=== PATIENT | female | born 1960 | race Caucasian/White ===

== ENCOUNTER 2022-11-08 17:53 | Emergency (ER) | payer OTHER, SELFPAY ==
--- NOTE | ~2022-11-08 | XR_ITS ---
EXAMINATION: XR knee RT min 4V DATE: 11/08/2022 21:10 INDICATION: Right knee swelling and pain TECHNIQUE: Four views of the right knee were obtained. COMPARISON: 12/15/2007 FINDINGS: Alignment is normal. No fracture or osteochondral lesion. There is mild tricompartmental os teoarthritis characterized by marginal osteophytes. There is a moderate-sized knee joint effusion. So ft tissues are unremarkable. IMPRESSION: 1. Moderate size knee joint effusion and tricompartmental osteoarthritis without acute osseous abnorm ality. Reviewed, dictated and finalized at location F. IMPRESSION: 1. Moderate size knee joint effusion and tricompartmental osteoarthritis withou t acute osseous abnormality.
[2022-11-08 18:01] VITALS: BP 119/61; PULSE 72; RESP 18; TEMP 36.8; O2SAT 100
[2022-11-08 20:43] VITALS: BP 134/74; PULSE 76; RESP 16; O2SAT 99
--- NOTE | 2022-11-08 22:40 | ED.EXTPRO ---
HPI - Extremity Problem General Chief complaint: Extremity Problem,Nontraumatic Stated complaint: right leg pain Time Seen by Provider: 11/08/22 21:06 History of Present Illness HPI Narrative: 62-year-old female with a history of lung cancer and asthma reports to the emergency department for evaluation of right knee pain and swelling for 1 day. Pt reports taking Aleve at 12:00 today with some relief. She denies injury, history of knee effusions, fever, body aches, chills, CP, SOB, leg swelling, calf pain, history of VTE. Related Data Home Medications Medication Instructions Recorded Confirmed albuterol sulfate 90 mcg/actuation 1 puff inhalation Q4H PRN 07/26/22 07/26/22 aerosol inhaler fluticasone 500 mcg-salmeterol 50 1 inh inhalation Q12H 07/26/22 07/26/22 mcg/dose blistr powdr for inhalation (Advair Diskus) loratadine 10 mg tablet 10 mg PO DAILY 07/26/22 07/26/22 montelukast 10 mg tablet 10 mg PO DAILY 07/26/22 07/26/22 Allergies Allergy/AdvReac Type Severity Reaction Status Date / Time cyclobenzaprine Allergy Severe STOPS Verified 11/08/22 20:46 BREATHING amitriptyline Allergy Unknown Unknown Verified 11/08/22 20:46 amoxicillin Allergy Unknown Unknown Verified 11/08/22 20:46 carbamazepine Allergy Unknown RASH Verified 11/08/22 20:46 codeine Allergy Unknown Unknown Verified 11/08/22 20:46 divalproex sodium Allergy Unknown RASH Verified 11/08/22 20:46 doxycycline Allergy Unknown Unknown Verified 11/08/22 20:46 hydrocodone Allergy Unknown Unknown Verified 11/08/22 20:46 hydromorphone Allergy Unknown Unknown Verified 11/08/22 20:46 lamotrigine Allergy Unknown RASH Verified 11/08/22 20:46 oxycodone Allergy Unknown Unknown Verified 11/08/22 20:46 peanut Allergy Unknown Unknown Verified 11/08/22 20:46 Penicillins Allergy Unknown Unknown Verified 11/08/22 20:46 topiramate Allergy Unknown TONGUE Verified 11/08/22 20:46 SWELLING adhesive tape AdvReac Unknown RASH Verified 11/08/22 20:46 gabapentin AdvReac Unknown Unknown Verified 11/08/22 20:46 COCONUT Allergy Unknown Unknown Uncoded 11/08/22 20:46 PROCAINE HCL Allergy Unknown Unknown Uncoded 11/08/22 20:46 SHELLFISH Allergy Unknown VERY Uncoded 11/08/22 20:46 VAGUE, CAN EAT BUT IF TOO MUCH GETS HIVES Review of Systems Review of Systems: CONSTITUTIONAL: Denies fever, chills EYES: Denies visual changes, redness, or discharge. ENT: Denies rhinorrhea, congestion, sore throat, or otalgia. CARDIOVASCULAR: Denies chest pain, palpitations, or edema. RESPIRATORY: Denies cough or dyspnea. GASTROINTESTINAL: Denies abdominal pain, nausea, vomiting, or diarrhea. GENITOURINARY: Denies dysuria or hematuria. SKIN: Denies rash or itching. MUSCULOSKELETAL: See HPI NEUROLOGIC: Denies headache, numbness, dizziness, or weakness. PSYCHIATRIC: Denies anxiety or depression. [facility] Past Medical History Medical History History of lung cancer Moderate persistent asthma Surgical History Surgical History History of History of lobectomy of lung (~2009) History of tonsillectomy Family History Family History Father Asthma Family history of allergic disorder Malignant neoplasm of prostate Family history of diabetes mellitus in first degree relative Patient's father is in good health Other Diabetes mellitus Family history of cardiovascular disease Hypertension Social History Social History Smoking status: Never smoker Alcohol intake: current Substance use: never Exam Narrative: GENERAL: Well-appearing, well-nourished, and in no acute distress. Patient resting comfortably in the bed. She is pleasant conversational. HEAD: Normocephalic, atraumatic. EYES: PERRLA and EOMI. NECK: Supple. No adenopathy
[2022-11-08] MEDS: NAPROXEN 500 MG TABLET PO (23:04)
[2022-11-08 23:07] VITALS: BP 130/68; PULSE 80; RESP 16; O2SAT 100
== END 2022-11-08 23:10 | disposition home or self-care (01) ==
PROVIDERS: Emergency Provider Physician Assistant; PCP Family Medicine Adolescent Medicine
DX: M25.461 Effusion, right knee (principal); J45.40 Moderate persistent asthma, uncomplicated; Z85.118 Personal history of other malignant neoplasm of bronchus and lung; Z90.2 Acquired absence of lung [part of]; M17.11 Unilateral primary osteoarthritis, right knee
CPT/HCPCS: 73564; 99283; A9270

== ENCOUNTER 2022-11-26 10:37 | Outpatient (CLI) | payer OTHER, SELFPAY ==
--- NOTE | ~2022-11-26 | MR_ITS ---
MRI of the right knee Clinical history: Lateral meniscus tear Technique: Coronal proton density and proton density-weighted images, sagittal proton-density and T2 fat-sat images, and axial proton-density fat-saturated images were acquired. Findings: Anterior and posterior cruciate ligaments are intact. Medial collateral ligament and the la teral collateral ligament complex are intact. Popliteus tendon is intact. There is prominent horizontal tear of the posterior horn and body of the medial meniscus. There is co mplex tearing of the anterior horn lateral meniscus, which is ill-defined and somewhat macerated appe arance. Horizontal tear extends into the body segment. There is probable extension of tear versus int rasubstance degenerative signal to the posterior horn lateral meniscus. Focal areas of moderate chondromalacia present along the lateral tibial plateau. There is patchy mode rate chondromalacia the patellar apex. Remainder articular cartilage in the knee is well preserved. T here are subchondral areas of reactive marrow edema at the areas of focal chondromalacia. Extensor mechanism is intact. Moderate joint effusion is present. There is a probable ganglion cyst p osterior to the lateral aspect of the distal femur, multiseptated, measuring 1.8 cm in diameter. Impression: Complex tearing of the anterior horn of the lateral meniscus which is ill-defined and somewhat macera carline, with horizontal tear extending to the body segment and probably into the posterior horn. Prominent horizontal tear of the posterior horn and body of the medial meniscus. Patchy areas of moderate chondromalacia along the lateral tibial plateau and at the patellar apex. Moderate joint effusion with 1.8 cm ganglion cyst posterior to the lateral aspect of the distal femur . Reviewed, dictated and finalized at location . Impression: Complex tearing of the anterior horn of the lateral meniscus which is ill-defin ed and somewhat macerated, with horizontal tear extending to the body segment a nd probably into the posterior horn. Prominent horizontal tear of the posterior horn and body of the medial meniscus . Patchy areas of moderate chondromalacia along the lateral tibial plateau and at the patellar apex. Moderate joint effusion with 1.8 cm ganglion cyst posterior to the lateral aspe ct of the distal femur.
== END 2022-11-26 10:38 | disposition home or self-care (01) ==
PROVIDERS: PCP Family Medicine Adolescent Medicine; Visit Provider Orthopaedic Surgery
DX: S83.271A Complex tear of lateral meniscus, current injury, right knee, initial encounter (principal); M22.41 Chondromalacia patellae, right knee; M25.461 Effusion, right knee; M67.451 Ganglion, right hip; T14.90XA Injury, unspecified, initial encounter
CPT/HCPCS: 73721

== ENCOUNTER 2023-03-29 09:40 | Outpatient (CLI) | payer OTHER, SELFPAY ==
--- NOTE | ~2023-03-29 | DEXA_ITS ---
Bone Density Report Name: ROBBIN GALINDO Age: 62 Sex: Female Ethnicity: White Date of : 1960 Indication: postmenopausal; screening for osteoporosis; height loss; cancer; asthma or emphysema; Referring Provider: MARY LOU, LESLEE Hernandez Study: Bone densitometry was performed. Exam Date: March 29, 2023 Accession number: [id number] Bone Density: Region BMD T-score Z-score Classification AP Spine(L1, L4) 1.076 0.4 1.9 Normal Femoral Neck (Left) 0.664 -1.7 -0.3 Osteopenia Total Hip (Left) 0.865 -0.6 0.5 Normal Femoral Neck (Right) 0.662 -1.7 -0.3 Osteopenia Total Hip (Right) 0.814 -1.1 0.0 Osteopenia Total Hip Mean 0.839 -0.9 0.3 Normal World Health Organization criteria for BMD impression classify patients as: Normal (T-score at or above -1.0), Osteopenia (T-score between -1.0 and -2.5), or Osteoporosis (T-score at or below -2.5). 10-year Fracture Risk(1): Major Osteoporotic Fracture 7.8% Hip Fracture 0.9% Reported Risk Factors: [place] (), Neck BMD=0.664, BMI=19.8 (1) FRAX(R) Version 3.08. Fracture probability calculated for an untreated patient. Fracture probability may be lower if the patient has received treatment. Previous Exams: Region Exam Age BMD T-score BMD Change BMD Change Date g/cm2 vs Baseline vs Previous AP Spine (L1,L4) 03/29/2023 62 1.076 0.4 -0.070 (-6.1%) -0.070 (-6.1%) 08/04/2017 57 1.145 1.0 Total Hip(Left) 03/29/2023 62 0.865 -0.6 -0.082 (-8.6%) -0.082 (-8.6%) 08/04/2017 57 0.947 0.0 Total Hip(Right) 03/29/2023 62 0.814 -1.1 -0.113 (-12.2% -0.113 (-12.2% 08/04/2017 57 0.927 -0.1 *Denotes significance at 95% confidence level, LSC for AP Spine = 0.022 g/cm2, LSC for Total Hip = 0.027 g/cm2 Clinical Information Provided by Patient: Has the following medical conditions: Asthma or Emphysema, Cancer Patient maximum height was 71 Menopause Age: 49 Does not regularly consume dairy products Onset of menses at age 14 Number of children 3 Impression: The patient has low bone mass, based on the Left Femoral Neck T-score. The patient has an estimated ten-year risk of hip fracture of 0.9% and an estimated ten-year risk of major fracture of 7.8%, based on the WHO FRAX algorithm. The BMD for the AP Spine (L1,L4) decreased, changing by -6.1% since the last DXA exam. The BMD for the Total Hip(Left) decreased, changing by -8.6% since the last DXA exam. The BMD for the Total Hi
--- NOTE | ~2023-03-29 | MM_ITS ---
EXAMINATION: MM screening cindy BI w cherrie HISTORY: Screening TECHNIQUE: Craniocaudal and mediolateral oblique 3-D tomosynthesis images were obtained and synthetic 2-D images were generated. CAD analysis was submitted and interpreted. COMPARISON: Comparison to multiple prior studies sequentially, with oldest reviewed study dated 09/13. BREAST PARENCHYMAL COMPOSITION: The breasts are heterogeneously dense, which may obscure small masses . FINDINGS: There is no evidence of suspicious mass, calcification, or architectural distortion to sugg est malignancy in either breast. There has been no suspicious interval change. IMPRESSION: 1. No mammographic evidence of malignancy. 2. Recommend routine screening mammography in one year. BI-RADS Category 1: Negative Reviewed, dictated and finalized at location A.
== END 2023-03-29 09:41 | disposition home or self-care (01) ==
PROVIDERS: PCP Family Medicine Adolescent Medicine; Visit Provider Physician Assistant
DX: Z12.31 Encounter for screening mammogram for malignant neoplasm of breast (principal); Z78.0 Asymptomatic menopausal state; M85.852 Other specified disorders of bone density and structure, left thigh; M85.851 Other specified disorders of bone density and structure, right thigh
CPT/HCPCS: 77063; 77067; 77080

== ENCOUNTER 2023-04-28 20:25 | Emergency (ER) | payer OTHER, SELFPAY ==
--- NOTE | ~2023-04-28 | XR_ITS ---
Clinical Indication: Cough, history lung cancer PA and lateral views of the chest: Comparison: 07/09/2018 Findings: Focal right lower lobe airspace opacity noted. Left lung clear. No pleural effusions. Card iomediastinal silhouette is within normal limits. Cardiac loop recorder is unchanged. Bones and soft tissues are unremarkable. Impression: Focal right lower lobe airspace opacity. Focal pneumonia, atelectasis considerations. Recurrent neopl asm not completely excluded given history of lung cancer. Consider CT scan or follow-up radiograph af ter interval therapy to further evaluate. Reviewed, dictated and finalized at location . Impression: Focal right lower lobe airspace opacity. Focal pneumonia, atelectasis considera tions. Recurrent neoplasm not completely excluded given history of lung cancer. Consider CT scan or follow-up radiograph after interval therapy to further pao luate.
[2023-04-28 21:18] VITALS: BP 129/75; PULSE 85; RESP 18; TEMP 37.9; O2SAT 98
[2023-04-29 00:23] VITALS: BP 116/81; PULSE 84; RESP 16; TEMP 37.6; O2SAT 100
--- NOTE | 2023-04-29 00:30 | ED.GENADULT ---
HPI - General Adult General Chief complaint: Fever Stated complaint: fever, cough Time Seen by Provider: 04/29/23 00:23 History of Present Illness HPI narrative: Patient 62-year-old female who presents to the emergency department with chief complaint of fever generalized malaise and cough. The patient reports she has history of lung cancer and has had a lobectomy of her lung with cure of her cancer. Patient reports she also has history of asthma and reports since over the weekend she started having body aches a little bit of a sore throat fever up to 102 patient states that she has not had any chest pain denies shortness of breath Related Data Home Medications Medication Instructions Recorded Confirmed albuterol sulfate 90 mcg/actuation 1 puff inhalation Q4H PRN 07/26/22 12/06/22 aerosol inhaler fluticasone 500 mcg-salmeterol 50 1 inh inhalation Q12H 07/26/22 12/06/22 mcg/dose blistr powdr for inhalation (Advair Diskus) loratadine 10 mg tablet 10 mg PO DAILY 07/26/22 12/06/22 montelukast 10 mg tablet 10 mg PO DAILY 07/26/22 12/06/22 Allergies Allergy/AdvReac Type Severity Reaction Status Date / Time cyclobenzaprine Allergy Severe STOPS Verified 12/06/22 11:41 BREATHING amitriptyline Allergy Unknown Unknown Verified 12/06/22 11:41 amoxicillin Allergy Unknown Unknown Verified 12/06/22 11:41 carbamazepine Allergy Unknown RASH Verified 12/06/22 11:41 codeine Allergy Unknown Unknown Verified 12/06/22 11:41 divalproex sodium Allergy Unknown RASH Verified 12/06/22 11:41 doxycycline Allergy Unknown Unknown Verified 12/06/22 11:41 hydrocodone Allergy Unknown Unknown Verified 12/06/22 11:41 hydromorphone Allergy Unknown Unknown Verified 12/06/22 11:41 lamotrigine Allergy Unknown RASH Verified 12/06/22 11:41 oxycodone Allergy Unknown Unknown Verified 12/06/22 11:41 peanut Allergy Unknown Unknown Verified 12/06/22 11:41 Penicillins Allergy Unknown Unknown Verified 12/06/22 11:41 topiramate Allergy Unknown TONGUE Verified 12/06/22 11:41 SWELLING adhesive tape AdvReac Unknown RASH Verified 12/06/22 11:41 gabapentin AdvReac Unknown Unknown Verified 12/06/22 11:41 COCONUT Allergy Unknown Unknown Uncoded 12/06/22 11:41 PROCAINE HCL Allergy Unknown Unknown Uncoded 12/06/22 11:41 SHELLFISH Allergy Unknown VERY Uncoded 12/06/22 11:41 VAGUE, CAN EAT BUT IF TOO MUCH GETS HIVES Review of Systems Review of Systems: A 10 system review of systems was completed on the patient and is negative except for what is stated in the HPI. Nursing and ancillary documentation was reviewed. PMFSH Past Medical History Medical History History of lung cancer Moderate persistent asthma Right knee injury Surgical History Surgical History History of History of lobectomy of lung (~2009) History of tonsillectomy Family History Family History Father Asthma Family history of allergic disorder Malignant neoplasm of prostate Family history of diabetes mellitus in first degree relative Patient's father is in good health Other Diabetes mellitus Family history of cardiovascular disease Hypertension Social History Social History Smoking status: Never smoker Alcohol intake: current Substance use: never Exam Narrative: GENERAL: Well-appearing, well-nourished, and in no acute distress. HEAD: Normocephalic, atraumatic. EYES: PERRLA and EOMI. ENT: Nares clear, no rhinorrhea or epistaxis. Mucous membranes moist. NECK: Supple. CHEST: Clear to auscultation. No respiratory distress. HEART: Regular rate and rhythm. No murmur heard. Normal peripheral pulses. ABDOMEN: Soft, nontender, nondistended, normal active bowel sounds. EXTREMITIES: Normal r
[2023-04-29 02:52] LABS: Influenza A QL RT-PCR Negative (Negative); Influenza B QL RT-PCR Negative (Negative); RSV RNA, RT-PCR Negative (Negative); SARS-CoV-2 RNA PCR Negative (Negative)
[2023-04-29 02:52] LABS: Strep Group A RT-PCR NOT DETECTED (Negative)
== END 2023-04-29 02:58 | disposition home or self-care (01) ==
PROVIDERS: Emergency Provider Emergency Medicine; PCP Family Medicine Adolescent Medicine
DX: J06.9 Acute upper respiratory infection, unspecified (principal); Z20.822 Contact with and (suspected) exposure to COVID-19; J45.40 Moderate persistent asthma, uncomplicated; Z85.118 Personal history of other malignant neoplasm of bronchus and lung; Z90.2 Acquired absence of lung [part of]
CPT/HCPCS: 71046; 87637; 87651; 99283

== ENCOUNTER 2023-06-29 11:48 | Emergency (ER) | payer OTHER, SELFPAY ==
--- NOTE | 2023-06-29 11:56 | ED.EYEPROB ---
HPI - Eye Problem General Chief complaint: Eye Problems Stated complaint: Lt Eye Irritation Source: patient and RN notes reviewed History of Present Illness HPI Narrative: 62 yo F presents to urgent care with complaints of left eye pain and irritation. Pt states she scratched her left eye with her heating pad this morning. Pt reports light sensitivity, pain, and watery discharge from left eye. Denies any use of corrective lens. Related Data Home Medications Medication Instructions Recorded Confirmed albuterol sulfate 90 mcg/actuation 1 puff inhalation Q4H PRN 07/26/22 06/29/23 aerosol inhaler Shortness Of Breath Or Wheezing fluticasone 500 mcg-salmeterol 50 1 inh inhalation Q12H 07/26/22 06/29/23 mcg/dose blistr powdr for inhalation (Advair Diskus) loratadine 10 mg tablet 10 mg PO DAILY 07/26/22 06/29/23 montelukast 10 mg tablet 10 mg PO DAILY 07/26/22 06/29/23 Allergies Allergy/AdvReac Type Severity Reaction Status Date / Time cyclobenzaprine Allergy Severe STOPS Verified 12/06/22 11:41 BREATHING topiramate Allergy Severe Anaphylactic Verified 06/29/23 12:03 Shock amitriptyline Allergy Intermediate Unknown Verified 06/29/23 12:03 amoxicillin Allergy Intermediate Hives Verified 06/29/23 12:03 Penicillins Allergy Intermediate Hives Verified 06/29/23 12:03 carbamazepine Allergy Unknown RASH Verified 12/06/22 11:41 codeine Allergy Unknown Unknown Verified 12/06/22 11:41 divalproex sodium Allergy Unknown RASH Verified 12/06/22 11:41 doxycycline Allergy Unknown Unknown Verified 12/06/22 11:41 hydrocodone Allergy Unknown Unknown Verified 12/06/22 11:41 hydromorphone Allergy Unknown Unknown Verified 12/06/22 11:41 lamotrigine Allergy Unknown RASH Verified 12/06/22 11:41 oxycodone Allergy Unknown Unknown Verified 12/06/22 11:41 peanut Allergy Unknown Unknown Verified 12/06/22 11:41 adhesive tape AdvReac Unknown RASH Verified 12/06/22 11:41 gabapentin AdvReac Unknown Unknown Verified 12/06/22 11:41 COCONUT Allergy Unknown Unknown Uncoded 12/06/22 11:41 PROCAINE HCL Allergy Unknown Unknown Uncoded 12/06/22 11:41 SHELLFISH Allergy Unknown VERY Uncoded 12/06/22 11:41 VAGUE, CAN EAT BUT IF TOO MUCH GETS HIVES Review of Systems Review of Systems: CONSTITUTIONAL: Denies fever, chills, or sweats. ENT: Denies otalgia and sore throat CARDIOVASCULAR: Denies chest pain, palpitations, or edema. RESPIRATORY: Denies cough or dyspnea. GASTROINTESTINAL: Denies abdominal pain, nausea, vomiting, or diarrhea. GENITOURINARY: Denies dysuria or hematuria. SKIN: Denies rash or itching. MUSCULOSKELETAL: Denies back pain, joint pain, or myalgia. NEUROLOGIC: Denies headache, numbness, or weakness. Pertinent positives per HPI. PMFSH Past Medical History Medical History History of lung cancer Moderate persistent asthma Right knee injury Surgical History Surgical History History of History of lobectomy of lung (~2009) History of tonsillectomy Family History Family History Father Asthma Family history of allergic disorder Malignant neoplasm of prostate Family history of diabetes mellitus in first degree relative Patient's father is in good health Other Diabetes mellitus Family history of cardiovascular disease Hypertension Social History Social History Smoking status: Never smoker Alcohol intake: current Substance use: never Comments At the time of my signature, I reviewed and agree with the nursing past medical, surgical, social, and family history. There is no relevant family history pertinent to the patient complaint. Exam Narrative: GENERAL: This is a well-nourished, well-developed patient, in no apparent distre
[2023-06-29 12:00] VITALS: BP 118/71; PULSE 63; RESP 20; TEMP 36.3; O2SAT 100
== END 2023-06-29 12:26 | disposition home or self-care (01) ==
PROVIDERS: Emergency Provider Nurse Practitioner Family; PCP Family Medicine Adolescent Medicine
DX: S05.02XA Injury of conjunctiva and corneal abrasion without foreign body, left eye, initial encounter (principal); Z79.899 Other long term (current) drug therapy; Z85.118 Personal history of other malignant neoplasm of bronchus and lung; W22.8XXA Striking against or struck by other objects, initial encounter
CPT/HCPCS: 99213; A9270; G0463

== ENCOUNTER 2024-08-16 15:17 | Emergency (ER) | payer OTHER, SELFPAY ==
--- NOTE | ~2024-08-16 | CT_ITS ---
CTA chest PE protocol Ordering provider: Krysten Falk History: 64 years Female with . right sided pleuritic chest pain, radiates to back . Comparison: None. Technique: CT angiogram chest was performed following timed intravenous injection of contrast. Thin s lice axial images and reformatted coronal images were obtained. Three dimensional reformatted images of the chest were also obtained using a TouchPal workstation. . Automated exposure control and iterati ve reconstruction technique were employed. The dose-length product was 147.05 mGy-cm. 100 mL Omnipaqu e 350 was given IV. Findings: PULMONARY ARTERIES: No pulmonary embolus. VISUALIZED THORACIC INLET: Normal. MEDIASTINUM: Aorta/coronary arteries: The thoracic aorta is normal. Heart/other: The heart is slightly enlarged. Lymph nodes: No mediastinal or hilar adenopathy. LUNGS: Small density in the right lower lobe which may be focal atelectasis. 3 months follow-up CT is advise d to exclude nodule. No pulmonary masses. No infiltrates or effusions. No pneumothorax. Dependent ate lectatic changes. VISUALIZED UPPER ABDOMEN: Small sliding hiatus hernia. Otherwise, the visualized upper abdomen is nor mal. MUSCULOSKELETAL: Soft tissues: The superficial soft tissues are normal. Bones: Age appropriate degenerative changes of the spine. Levoscoliosis. Kyphosis. IMPRESSION: 1. No pulmonary embolism. 2. No acute cardiopulmonary pathology. 3. Small focal atelectasis versus nodule measuring 12 x [address] follow-up advised. Reviewed, dictated and finalized at location A. IER SHOP SUPERVISOR IMPRESSION: 1. No pulmonary embolism. 2. No acute cardiopulmonary pathology. 3. Small focal atelectasis versus nodule measuring 12 x [address] foll ow-up advised.
[2024-08-16 16:33] VITALS: BP 123/87; PULSE 98; RESP 18; TEMP 36.2; O2SAT 95
--- NOTE | 2024-08-16 16:36 | ED_ITS ---
HPI - Chest Pain General Chief Complaint: Chest Pain <Krysten Falk PA-C - Last Filed: 08/16/24 16:37> Stated Complaint: CP/SOB <Krysten Falk PA-C - Last Filed: 08/16/24 16:37> Time Seen by Provider: 08/17/24 00:56 <Krysten Falk PA-C - Last Filed: 08/16/24 16:37> Focused HPI: 64-year-old female with history of asthma, CVA, right-sided lung cancer and lobectomy 14 years ago presents to the emergency department for right-sided chest pain that radiates to her back for 1 week. Patient reports symptoms are worse with deep inspiration. Also reports shortness of breath. Denies cough or congestion, hemoptysis, lower extremity edema, history of VTE. States she has been in remission from lung cancer for 14 years. She does not smoke. GENERAL: Well-appearing, well-nourished, and in no acute distress. HEAD: Normocephalic, atraumatic. CHEST: Clear to auscultation. ?No respiratory distress. HEART: Regular rate and rhythm.? NEURO: ?Alert and oriented x3. Patient screened in triage and initial orders placed.? ?Additional care and disposition to be based upon?diagnostic testing and treatment. <Krysten Falk PA-C - Last Filed: 08/16/24 16:37> Related Data Home Medications: Home Medications ?Medication ?Instructions ?Recorded ?Confirmed ?Last Taken ?Type albuterol sulfate 90 mcg/actuation 1 puff inhalation Q4H PRN 07/26/22 04/05/24 Unknown History aerosol inhaler Shortness Of Breath Or Wheezing fluticasone 500 mcg-salmeterol 50 1 inh inhalation Q12H 07/26/22 04/05/24 Unknown History mcg/dose blistr powdr for inhalation (Advair Diskus) loratadine 10 mg tablet 10 mg PO DAILY 07/26/22 04/05/24 Unknown History montelukast 10 mg tablet 10 mg PO DAILY 07/26/22 04/05/24 Unknown History tiotropium bromide 1.25 2 puff inhalation DAILY 04/05/24 04/05/24 Unknown History mcg/actuation mist for inhalation (Spiriva Respimat) <Krysten Falk PA-C - Last Filed: 08/16/24 16:37> Allergies/Adverse Reactions: Allergies Allergy/AdvReac Type Severity Reaction Status Date / Time cyclobenzaprine Allergy Severe STOPS Verified 08/16/24 17:30 BREATHING topiramate Allergy Severe Anaphylactic Verified 08/16/24 17:30 Shock amitriptyline Allergy Intermediate Unknown Verified 08/16/24 17:30 amoxicillin Allergy Intermediate Hives Verified 08/16/24 17:30 Penicillins Allergy Intermediate Hives Verified 08/16/24 17:30 carbamazepine Allergy Unknown RASH Verified 08/16/24 17:30 codeine Allergy Unknown Unknown Verified 08/16/24 17:30 divalproex sodium Allergy Unknown RASH Verified 08/16/24 17:30 doxycycline Allergy Unknown Unknown Verified 08/16/24 17:30 hydrocodone Allergy Unknown Unknown Verified 08/16/24 17:30 hydromorphone Allergy Unknown Unknown Verified 08/16/24 17:30 lamotrigine Allergy Unknown RASH Verified 08/16/24 17:30 oxycodone Allergy Unknown Unknown Verified 08/16/24 17:30 peanut Allergy Unknown Unknown Verified 08/16/24 17:30 adhesive tape AdvReac Unknown RASH Verified 08/16/24 17:30 gabapentin AdvReac Unknown Unknown Verified 08/16/24 17:30 COCONUT Allergy Unknown Unknown Uncoded 08/16/24 17:30 PROCAINE HCL Allergy Unknown Unknown Uncoded 08/16/24 17:30 SHELLFISH Allergy Unknown VERY Uncoded 08/16/24 17:30 VAGUE, CAN EAT BUT IF TOO MUCH GETS HIVES <Krysten Falk PA-C - Last Filed: 08/16/24 16:37> Review of Systems 2 Review of Systems: CONSTITUTIONAL: Denies fever CARDIOVASCULAR: Reports chest pain. Denies edema. RESPIRATORY: Reports dyspnea. <Samantha Ramirez PA-C - Last Filed: 08/17/24 02:37> All systems reviewed & are unremarkable except as noted in HPI and below < Samantha Ramirez PA-C - Last Filed: 08/17/24 02:37> [facility] Past Medical History Medical History: Medical History (Updated 08/17/24 @ 02:33 by Samantha Ramirez PA-C) Right knee injury History of lung cancer (2009) Moderate persistent asthma <Krysten Falk PA-C - Last Filed: 08/16/24 16:37> Surgical History Surgical History: Surgical History (Updated 04/05/24 @ 06:03 by Michael Sherman MD) History of lobectomy of lung (2009) History of History of tonsillectomy <Krysten Falk PA-C - Last Filed: 08/16/24 16:37> Family History Family History: Family History Father Asthma Family history of allergic disorder Malignant neoplasm of prostate Family history of diabetes mellitus in first degree relative Patient's father is in good health Other Diabetes mellitus Family history of cardiovascular disease Hypertension <Krysten Falk PA-C - Last Filed: 08/16/24 16:37> Social History Social History: Social History (Updated 04/05/24 @ 12:49 by Florecita Cortes [facility]) Smoking status: Never smoker Alcohol intake: current Substance use: never Do You Feel Safe in your Home?: No Lack of Transportation: YES Lack of Food: Never True Current Housing: I Have Housing Concerned About Future Housing: No Difficulty Paying Gas/Electric Bills: YES Difficulty Paying for Meds: No Currently Unemployed: No Education: Trade/Vocational Certificate Difficulty w/ Childcare or Family Care: No <Krysten Falk PA-C - Last Filed: 08/16/24 16:37> Exam 2 Narrative: GENERAL: Well-appearing, well-nourished, and in no acute distress. HEAD: Normocephalic, atraumatic. EYES: EOMI. CHEST: Clear to auscultation. No respiratory distress. No wheezes rales or rhonchi HEART: Regular rate and rhythm. No murmur heard. Normal peripheral pulses. EXTREMITIES: Normal range of motion. No edema. SKIN: Warm, dry, no rash. NEURO: No focal deficits. Alert and oriented x3. PSYCH: Normal mood and affect <Samantha Ramirez PA-C - Last Filed: 08/17/24 02:37> Course Course Emergency Course: Patient updated on her workup and agrees with plan of care <Samantha Ramirez PA-C - Last Filed: 08/17/24 02:37> Vital Signs Vital signs: Vital Signs Temperature 97.1 F L 08/16/24 16:33 Pulse Rate 98 08/16/24 16:33 Respiratory Rate 18 08/16/24 16:33 Blood Pressure 123/87 08/16/24 16:33 Pulse Oximetry 95 08/16/24 16:33 Oxygen Delivery Room Air 08/16/24 16:33 Temperature 97.8 F 08/16/24 17:46 Pulse Rate 68 08/16/24 23:42 Respiratory Rate 18 08/16/24 23:42 Blood Pressure 114/58 L 08/16/24 23:42 Pulse Oximetry 99 08/16/24 23:42 Oxygen Delivery Room Air 08/16/24 16:33 <Krysten Falk PA-C - Last Filed: 08/16/24 16:37> Vital Signs Temperature 97.1 F L 08/16/24 16:33 Pulse Rate 98 08/16/24 16:33 Respiratory Rate 18 08/16/24 16:33 Blood Pressure 123/87 08/16/24 16:33 Pulse Oximetry 95 08/16/24 16:33 Oxygen Delivery Room Air 08/16/24 16:33 Temperature 97.8 F 08/16/24 17:46 Pulse Rate 68 08/16/24 23:42 Respiratory Rate 18 08/16/24 23:42 Blood Pressure 114/58 L 08/16/24 23:42 Pulse Oximetry 99 08/16/24 23:42 Oxygen Delivery Room Air 08/16/24 16:33 <Samantha Ramirez PA-C - Last Filed: 08/17/24 02:37> MDM - Chest Pain MDM Narrative Medical decision making narrative: Patient presents to the emergency department for chest pain and upper back pain that is been ongoing over the last week. She is afebrile and nontoxic appearing. Her vitals are stable. Pain seems to be musculoskeletal in nature. Cbc without leukocytosis. Hemoglobin is likely stable. Metabolic panel without concerning findings. EKG without concerning changes, baseline, 3 hour and 6 hour troponins are negative. BNP is not concerning elevated. CTA chest without PE or acute cardiopulmonary abnormality. Shows a possible lung nodule. Patient updated on her workup and agrees with plan of care. Able to in the in the ED and maintained normal oxygen saturation. Encouraged to have close follow-up with her non food receiving clerk and PCP. She was given warnings to return to the ER < Samantha Ramirez PA-C - Last Filed: 08/17/24 02:37> Differential Diagnosis Differential diagnosis: Likely stable angina, atypical chest pain, costochondritis, chest pain and other (Chest wall pain, PE, lung cancer, pneumonia) <Samantha Ramirez PA-C - Last Filed: 08/17/24 02:37> Lab Data Attestation: I reviewed the patient's lab results. <Samantha Ramirez PA-C - Last Filed: 08/17/24 02:37> Result diagrams: 08/16/24 17:29 08/16/24 17:29 <Krysten Falk PA-C - Last Filed: 08/16/24 16:37> Labs: Lab Results 08/16/24 08/16/24 08/16/24 Range/Units 17:29 19:40 23:04 WBC 6.1 (4.5-10.0) K/mm3 RBC 3.79 L (4.2-5.4) M/mm3 Hgb 10.7 L (12.0-15.0) g/dL Hct 33.8 L (37.0-47.0) % MCV 89.2 (80-100) fl MCH 28.2 (26-34) pg MCHC 31.7 L (32-36) g/dl RDW 16.2 H (11.5-14.5) % Plt Count 229 (150-375) k/mm3 MPV 8.7 (7.4-10.4) fl Immature Gran % (Auto) 0.2 (0-0.5) % Neut % (Auto) 59.0 (45.5-73.1) % Lymph % (Auto) 26.1 (18.3-44.2) % [place] % (Auto) 10.4 H (2.6-8.5) % Eos % (Auto) 3.0 (0-4.4) % Baso % (Auto) 1.3 H (0.2-1.2) % Lymph # (Auto) 1.58 (0.9-3.2) K/mm3 [place] # (Auto) 0.6 (0.1-0.6) K/mm3 Eos # (Auto) 0.2 (0-0.3) K/mm3 Baso # (Auto) 0.1 (0.0-0.1) K/mm3 Abs Immat Gran (auto) 0.01 (0.00-0.031) K/mm3 Absolute Neuts (auto) 3.6 (1.3-6.7) K/mm3 Absolute Nucleated RBC 0.000 (0.0-0.012) K/mm3 Nucleated RBC % 0.0 (0.0-0.2) % PT 11.4 (11.1-14.7) Seconds INR 0.8 APTT 26.0 (22.3-36.8) Seconds Sodium 142 (137-145) mmol/L Potassium 4.0 (3.4-5.0) mmol/L Chloride 109 H (98-107) mmol/L Carbon Dioxide 31 H (22-30) mmol/L Anion Gap 2 L (4-12) mmol/L BUN 17 (7-17) mg/dL Creatinine 0.80 (0.7-1.0) mg/dL Estim Creat Clear Calc 65 ml/min Estimated GFR > 60 (59 - ) Glucose 114 H (65-110) mg/dL Calcium 9.1 (8.4-10.2) mg/dL Total Bilirubin 0.3 (0.2-1.3) mg/dL AST 20 (14-36) U/L ALT 16 (6-35) U/L Alkaline Phosphatase 83 (38-126) U/L Troponin I < 0.012 < 0.012 < 0.012 (0.000-0.034) ng/mL NT-Pro-B Natriuret Pep 159 H (19.9-100) pg/mL Total Protein 7.0 (6.3-8.2) g/dL Albumin 4.3 (3.5-5.1) g/dL Lipase 206 (23-300) U/L <Krysten Falk PA-C - Last Filed: 08/16/24 16:37> Lab Results 08/16/24 08/16/24 08/16/24 Range/Units 17:29 19:40 23:04 WBC 6.1 (4.5-10.0) K/mm3 RBC 3.79 L (4.2-5.4) M/mm3 Hgb 10.7 L (12.0-15.0) g/dL Hct 33.8 L (37.0-47.0) % MCV 89.2 (80-100) fl MCH 28.2 (26-34) pg MCHC 31.7 L (32-36) g/dl RDW 16.2 H (11.5-14.5) % Plt Count 229 (150-375) k/mm3 MPV 8.7 (7.4-10.4) fl Immature Gran % (Auto) 0.2 (0-0.5) % Neut % (Auto) 59.0 (45.5-73.1) % Lymph % (Auto) 26.1 (18.3-44.2) % [place] % (Auto) 10.4 H (2.6-8.5) % Eos % (Auto) 3.0 (0-4.4) % Baso % (Auto) 1.3 H (0.2-1.2) % Lymph # (Auto) 1.58 (0.9-3.2) K/mm3 [place] # (Auto) 0.6 (0.1-0.6) K/mm3 Eos # (Auto) 0.2 (0-0.3) K/mm3 Baso # (Auto) 0.1 (0.0-0.1) K/mm3 Abs Immat Gran (auto) 0.01 (0.00-0.031) K/mm3 Absolute Neuts (auto) 3.6 (1.3-6.7) K/mm3 Absolute Nucleated RBC 0.000 (0.0-0.012) K/mm3 Nucleated RBC % 0.0 (0.0-0.2) % PT 11.4 (11.1-14.7) Seconds INR 0.8 APTT 26.0 (22.3-36.8) Seconds Sodium 142 (137-145) mmol/L Potassium 4.0 (3.4-5.0) mmol/L Chloride 109 H (98-107) mmol/L Carbon Dioxide 31 H (22-30) mmol/L Anion Gap 2 L (4-12) mmol/L BUN 17 (7-17) mg/dL Creatinine 0.80 (0.7-1.0) mg/dL Estim Creat Clear Calc 65 ml/min Estimated GFR > 60 (59 - ) Glucose 114 H (65-110) mg/dL Calcium 9.1 (8.4-10.2) mg/dL Total Bilirubin 0.3 (0.2-1.3) mg/dL AST 20 (14-36) U/L ALT 16 (6-35) U/L Alkaline Phosphatase 83 (38-126) U/L Troponin I < 0.012 < 0.012 < 0.012 (0.000-0.034) ng/mL NT-Pro-B Natriuret Pep 159 H (19.9-100) pg/mL Total Protein 7.0 (6.3-8.2) g/dL Albumin 4.3 (3.5-5.1) g/dL Lipase 206 (23-300) U/L <Samantha Ramirez PA-C - Last Filed: 08/17/24 02:37> Imaging Data Radiologist's impression: ITS Impressions Chest CTA 08/16/24 19:22 IMPRESSION: 1. No pulmonary embolism. 2. No acute cardiopulmonary pathology. 3. Small focal atelectasis versus nodule measuring 12 x [address] follow-up advised. <Samantha Ramirez PA-C - Last Filed: 08/17/24 02:37> ECG Data EKG #1: ECG completion date: 08/16/24 <JASE Rutledge Last Filed: 08/17/24 02:37> EKG Interpretation: bradycardia, sinus rhythm, no ST changes and normal QT <JASE Rutledge Last Filed: 08/17/24 02:37> Critical Care Time Critical Care Time Critical Care Time: No <JASE Rutledge Last Filed: 08/17/24 02:37> Discharge Plan Discharge Clinical Impression: Chest pain Qualifiers: Chest pain type: unspecified Qualified Code(s): R07.9 - Chest pain, unspecified <JASE Cutler Last Filed: 08/16/24 16:37> Patient Disposition: Home, Self-Care <JASE Cutler Last Filed: 08/16/24 16:37> Condition: Stable <JASE Cutler Last Filed: 08/16/24 16:37> Instructions: Chest Wall Pain (ED) <JASE Cutler Last Filed: 08/16/24 16:37> Additional Instructions: Return to the Emergency Department if you experience fever, worsening chest pain, shortness of breath, or any other symptoms that are concerning to you Your blood work, EKG and imaging is largely reassuring. There is a possible nodule in your right lung seen on CT scan today which may need further follow up with more imaging of your chest in the next couple of months Follow up with your non food receiving clerk and primary care doctor for further management <JASE Cutler Last Filed: 08/16/24 16:37> Patient Language: Algerian <JASE Cutler Last Filed: 08/16/24 16:37> Prescriptions: No Action fluticasone propion-salmeterol [Advair Diskus] 500-50 mcg/dose blister with device 1 inh inhalation Q12H montelukast 10 mg tablet 10 mg PO DAILY loratadine 10 mg tablet 10 mg PO DAILY albuterol sulfate 90 mcg/actuation HFA aerosol inhaler 1 puff inhalation Q4H PRN (Reason: Shortness Of Breath Or Wheezing) Spiriva Respimat 1.25 mcg/actuation mist 2 puff inhalation DAILY <JASE Cutler Last Filed: 08/16/24 16:37> Follow-up/Referrals: Michael Sherman MD [Primary Care Provider] - <JASE Cutler Last Filed: 08/16/24 16:37> Quality HEART score for chest pain patients History: slightly suspicious <JASE Rutledge Last Filed: 08/17/24 02:37> ECG: normal <JASE Rutledge Last Filed: 08/17/24 02:37> Age: > 45 and < 65 years <Samantha Ramirez PA-C - Last Filed: 08/17/24 02:37> Risk factors: 1 or 2 risk factors <Samantha Ramirez PA-C - Last Filed: 08/17/24 02:37> Troponin: < or = to 1x normal limit <JASE Rutledge Last Filed: 08/17/24 02:37> Heart score: 2 <Samantha Ramirez PA-C - Last Filed: 08/17/24 02:37>
--- NOTE | 2024-08-16 16:36 | ECG_ITS ---
Test Date: 2024-08-16 17:29:05 Measurements Intervals [place] Rate: 59 P: 63 CO: 115 QRS: 74 QRSD: 93 T: 51 QT: 359 QTc: 358 Interpretive Statements SINUS BRADYCARDIA WITH SHORT CO INTERVAL NONSPECIFIC T-WAVE ABNORMALITY No previous ECG available for comparison Electronically Signed On 08-20-2024 14:36:53 FELLER BUNCHER OPERATOR by Dayton Ventura M.D.
[2024-08-16 17:36] LABS: Basophils Absolute Auto 0.1 K/mm3 (0.0-0.1); Basophils Percent Auto 1.3 % (0.2-1.2); Eosinophils Absolute Auto 0.2 K/mm3 (0-0.3); Hematocrit 33.8 % (37.0-47.0); Hemoglobin 10.7 g/dL (12.0-15.0); Immature Granulocyte Absolute 0.01 K/mm3 (0.00-0.031); Immature Granulocyte Percent A 0.2 % (0-0.5); Lymphocytes Absolute Auto 1.58 K/mm3 (0.9-3.2); Lymphocytes Percent Auto 26.1 % (18.3-44.2); Mean Corpuscular HGB Conc 31.7 g/dl (32-36); Mean Corpuscular Hemoglobin 28.2 pg (26-34); Mean Corpuscular Volume 89.2 fl (80-100); Mean Platelet Volume 8.7 fl (7.4-10.4); Monocytes Absolute Auto 0.6 K/mm3 (0.1-0.6); Monocytes Percent Auto 10.4 % (2.6-8.5); Neutrophils Absolute Auto 3.6 K/mm3 (1.3-6.7); Platelet Count Result 229 k/mm3 (150-375); Red Blood Count 3.79 M/mm3 (4.2-5.4); Red Cell Distribution Width 16.2 % (11.5-14.5); White Blood Count 6.1 K/mm3 (4.5-10.0)
[2024-08-16 17:46] VITALS: BP 140/92; PULSE 98; RESP 18; TEMP 36.6; O2SAT 98
[2024-08-16 17:48] LABS: INR 0.8; Prothrombin Time 11.4 Seconds (11.1-14.7)
[2024-08-16 18:00] LABS: Alanine Aminotransferase 16 U/L (6-35); Albumin Level 4.3 g/dL (3.5-5.1); Alkaline Phosphatase 83 U/L (38-126); Anion Gap 2 mmol/L (4-12); Aspartate Amino Transferase 20 U/L (14-36); Bilirubin,Total 0.3 mg/dL (0.2-1.3); Blood Urea Nitrogen 17 mg/dL (7-17); Calcium 9.1 mg/dL (8.4-10.2); Carbon Dioxide 31 mmol/L (22-30); Chloride 109 mmol/L (98-107); Estimated CRCL calculation 65 ml/min; Estimated Glomerular Filt Rate > 60; Glucose 114 mg/dL (65-110); Lipase 206 U/L (23-300); Sodium 142 mmol/L (137-145)
[2024-08-16 18:02] LABS: NT Pro B Type Natriuretic Pept 159 pg/mL (19.9-100); Troponin I < 0.012 ng/mL (0.000-0.034)
--- NOTE | 2024-08-16 19:34 | ECG_ITS ---
Test Date: 2024-08-16 19:38:40 Measurements Intervals [place] Rate: 58 P: 56 [place]: 131 QRS: 76 QRSD: 77 T: 52 QT: 418 QTc: 413 Interpretive Statements SINUS BRADYCARDIA SEPTAL MYOCARDIAL INFARCTION , OF INDETERMINATE AGE [40+ ms Q WAVE IN V1/V2] Compared to ECG 08/16/2024 17:29:05 Myocardial infarct finding now present Short [place] interval no longer present T-wave abnormality no longer present Electronically Signed On 08-20-2024 14:51:04 BED MANAGER by Dayton Ventura M.D.
[2024-08-16 20:07] LABS: Troponin I < 0.012 ng/mL (0.000-0.034)
--- NOTE | 2024-08-16 22:57 | ECG_ITS ---
Test Date: 2024-08-16 23:02:42 Measurements Intervals [place] Rate: 53 P: 44 [place]: 116 QRS: 65 QRSD: 92 T: 50 QT: 451 QTc: 425 Interpretive Statements SINUS BRADYCARDIA WITH SHORT WI INTERVAL Compared to ECG 08/16/2024 19:38:40 Short [place] interval now present Myocardial infarct finding no longer present Electronically Signed On 08-20-2024 14:53:07 DRAWER MAKER by Dayton Ventura M.D.
[2024-08-16 23:32] LABS: Troponin I < 0.012 ng/mL (0.000-0.034)
[2024-08-16 23:42] VITALS: BP 114/58; PULSE 68; RESP 18; O2SAT 99
[2024-08-17] MEDS: KETOROLAC 15 MG/ML VIAL (*BKC) IV PUSH (01:45)
[2024-08-17] MEDS: ACETAMINOPHEN 500 MG TABLET 1000 MG PO (01:46)
[2024-08-17] MEDS: diazePAM (*CRX) 5 MG TABLET PO (01:47)
[2024-08-17 02:52] VITALS: BP 124/82; PULSE 67; RESP 15; O2SAT 100
--- OUTSIDE RECORDS SUMMARY | 2024-08-24 04:30 | XMS_ITS | Clinical Summary ---
Author Organization [facility] Address [address] [place] [address]. [place], [place] [id number] [place] [address] Care Team Providers Care Cabin Man Name Role Phone Jason Whyte MD Primary Care Provider [phone] Social History Tobacco Use Types Packs/Day Years Used Date Smoking Tobacco: Never Assessed Comments Unknown Sex and Gender Information Value Date Recorded Sex Assigned at Not on file Legal Sex Female 6:51 PM CDT Gender Identity Not on file Sexual Orientation Not on file Last Filed Vital Signs Vital Sign Reading Time Taken Comments Blood Pressure 94/66 04/15/2016 12:21 PM CDT Pulse 53 04/15/2016 12:12 PM CDT Temperature - - Respiratory Rate - - Oxygen Saturation - - Inhaled Oxygen Concentration - - Weight 59.4 kg (131 lb) 04/15/2016 12:12 PM CDT Height 175.3 cm (5' 9 ) 04/15/2016 12:12 PM CDT Body Mass Index 19.35 04/15/2016 12:12 PM CDT Plan of Treatment Health Maintenance Due Date Last Done Comments Cervical Cancer Screening Pa p Smear (Age 30 to 64) Every 3 Years 1960 Colorectal Cancer Screening Colonoscopy (10 Years) 1960 Annual Physical 1963 Hepatitis C 1978 DTaP, Tdap and Td Vaccines ( 1 - Tdap) 1979 Cervical Cancer Screening Pa p with HPV Testing (Age 30 to 64) Every 5 Years 1990 Cervical Cancer Screening with HPV 1990 Mammogram Screening 2000 Zoster Vaccines (1 of 2) 2010 COVID-19 Vaccine ( - 2023-2 5 season) 2024 Influenza Adult (#1) 2024 RSV Immunization or 60+ Years (1 - 1-dose 75+ series) 2035 Pneumococcal Vaccine: Pediat rics (0 to 5 Years) and At-Risk Patients (6 to 64 Years) Aged Out 07/01/2016 No longer eligi ble based on patient's age to complete this topic Meningococcal Vaccine Aged Out No darrell jones eligible based on patient's age to complete this topic RSV Immunizations Under 20 Months Aged Out No longer eligible based on patient's age to complete this topic Care Teams Cabin Man Relationship Specialty Start Date End Date Jason Whyte MD [address] [place] [address] PCP - General 08/28/15
--- OUTSIDE RECORDS SUMMARY | 2024-08-24 04:31 | XMS_ITS | Encounter Summary ---
Author Organization [facility] Address [address] [place] [address]. [place], [place] [id number] [place] [address] Care Team Providers Care Hotel Sales Manager Name Role Phone Jason Whyte MD Primary Care Provider [phone] Jason Whyte MD Primary Care Provider [phone] Encounter Details Date Type Department Care Team (Latest Contact Info) Description 07/14/2015 Abstract [facility] Social History Tobacco Use Types Packs/Day Years Used Date Smoking Tobacco: Never Assessed Comments Unknown Sex and Gender Information Value Date Recorded Sex Assigned at Not on file Legal Sex Female 6:51 PM CDT Gender Identity Not on file Sexual Orientation Not on file documented as of this encounter Plan of Treatment Not on file documented as of this encounter Visit Diagnoses Not on filedocumented in this encounter Care Teams Hotel Sales Manager Relationship Specialty Start Date End Date Jason Whyte MD [address] [place] [address] PCP - General 08/28/15 Jason Whyte MD [address] [place] [address] PCP - General 05/08/15 08/27/15 documented as of this encounter
--- OUTSIDE RECORDS SUMMARY | 2024-08-24 04:31 | XMS_ITS | Encounter Summary ---
Author Organization [facility] Address [address] [place] [address]. [place], [place] [id number] [place] [address] Care Team Providers Care Bread Stacker Name Role Phone Jason Whyte MD Primary Care Provider [phone] Jason Whyte MD Primary Care Provider [phone] Encounter Details Date Type Department Care Team (Latest Contact Info) Description 04/04/2015 Abstract [facility] Social History Tobacco Use [...] on filedocumented in this encounter Care Teams Bread Stacker Relationship Specialty Start Date End Date Jason Whyte MD [address] [place] [address] PCP - General 08/28/15 Jason Whyte MD [address] [place] [address] PCP - General 05/08/15 08/27/15 documented as of this encounter
--- OUTSIDE RECORDS SUMMARY | 2024-08-24 04:31 | XMS_ITS | Encounter Summary ---
Author Organization [facility] Address [address] [place] [address]. [place], [place] [id number] [place] [address] Care Team Providers Care Netbackup Engineer Name Role Phone Jason Whyte MD Primary Care Provider Encounter Details Date Type Department Care Team (Latest Contact Info) Description 10/20/2015 Abstract [facility] Social History Tobacco Use Types [...] on filedocumented in this encounter Care Teams Netbackup Engineer Relationship Specialty Start Date End Date Jason Whyte MD [address] [place] [address] PCP - General 08/28/15 documented as of this encounter
--- OUTSIDE RECORDS SUMMARY | 2024-08-24 04:31 | XMS_ITS | Encounter Summary ---
Author Organization [facility] Address [address] [place] [address]. [place], [place] [id number] [place] [address] Care Team Providers Care Air Box Tester Name Role Phone Jason Whyte MD Primary Care Provider [phone] Encounter Details Date Type Department Care Team (Latest Contact Info) Description 06/20/2018 Scan [facility] , Jude Hernandez MD Social History Tobacco Use Types Packs/Day Years [...] on filedocumented in this encounter Care Teams Air Box Tester Relationship Specialty Start Date End Date Jason Whyte MD [address] [place] [address] PCP - General 08/28/15 documented as of this encounter
--- OUTSIDE RECORDS SUMMARY | 2024-08-24 04:31 | XMS_ITS | Encounter Summary ---
Author Organization [facility] Address [address] [place] [address]. [place], [place] [address] [place] [address] Care Team Providers Care Aviation Boatswain'S Mate Name Role Phone Jason Whyte MD Primary Care Provider [phone] Encounter Details Date Type Department Care Team (Latest Contact Info) Description 04/16/2016 Abstract [facility] Social History Tobacco Use Types [...] on filedocumented in this encounter Care Teams Aviation Boatswain'S Mate Relationship Specialty Start Date End Date Jason Whyte MD [address] [place] [address] PCP - General 08/28/15 documented as of this encounter
--- OUTSIDE RECORDS SUMMARY | 2024-08-24 04:31 | XMS_ITS | Encounter Summary ---
Author Organization [facility] Address [address] [place] [address]. [place], [place] [address] [place] [address] Care Team Providers Care Automotive Machinist Name Role Phone Jason Whyte MD Primary Care Provider [phone] Encounter Details Date Type Department Care Team (Latest Contact Info) Description 09/09/2015 Abstract [facility] Medical Group Social History Tobacco [...] on filedocumented in this encounter Care Teams Automotive Machinist Relationship Specialty Start Date End Date Jason Whyte MD [address] [place] [address] PCP - General 08/28/15 documented as of this encounter
--- OUTSIDE RECORDS SUMMARY | 2024-08-24 04:31 | XMS_ITS | Encounter Summary ---
Author Organization [facility] Address [address] [place] [address]. [place], [place] [address] [place] [address] Care Team Providers Care Pharmacy Retail Support Specialist Name Role Phone Jason Whyte MD Primary Care Provider [phone] Jason Whyte MD Primary Care Provider [phone] Encounter Details Date Type Department Care Team (Latest Contact Info) Description 04/03/2015 Abstract [facility] Medical Group Social History Tobacco [...] on filedocumented in this encounter Care Teams Pharmacy Retail Support Specialist Relationship Specialty Start Date End Date Jason Whyte MD [address] [place] [address] PCP - General 08/28/15 Jason Whyte MD [address] [place] [address] PCP - General 05/08/15 08/27/15 documented as of this encounter
--- OUTSIDE RECORDS SUMMARY | 2024-08-24 04:31 | XMS_ITS | Encounter Summary ---
Author Organization [facility] Address [address] [place] [address]. [place], [place] [address] [place] [address] Care Team Providers Care Director Nursing Service Name Role Phone Jason Whyte MD Primary Care Provider [phone] Jason Whyte MD Primary Care Provider [phone] Encounter Details Date Type Department Care Team (Latest Contact Info) Description 05/11/2015 Abstract [facility] Medical Group Social History Tobacco Use Types Packs/Day Years Used Date Smoking Tobacco: Never Assessed Comments Unknown Sex and Gender Information Value Date Recorded Sex Assigned at Not on file Legal Sex Female 6:51 PM CDT Gender Identity Not on file Sexual Orientation Not on file documented as of this encounter Progress Notes * Jason Whyte MD - 05/11/2015 9:27 PM CDT Message Labs are normal. letter mailed notifying pt--nk Verified Results CBC W Manual Differential [id number] 11:43AM Jason Whyte Test Name Result Flag Reference White Blood Cell Count (WBC) 5.6 X10'3/uL 4.8-10.8 Red Blood Cell Count (RBC) 4.28 X10'6/uL 4.20-5.40 Hemoglobin (HGB) 13.1 g/dL 12.0-16.0 Hematocrit (HCT) 41.0 % 38.0-48.0 Mean Corpuscular Volume (MCV) 95.8 fL 81.0-99.0 Mean Corpuscular Hgb (MCH) 30.6 pg 27.0-31.0 Mean Corpuscular Hgb Conc (MCH 32.0 g/dL 32.0-36.0 Red Cell Distrib Width (RDW) 13.9 % 11.5-14.5 Platelet Count (PLT) 192 X10'3/uL 130-400 Mean Platelet Volume (MPV) 10.0 fL 9.3-12.2 Differential Type MANUAL Segmented Neutrophils 62 % 43.0-65.0 Lymphocytes 27 % 20.0-46.0 Monocytes 7 % 5.0-12.0 Eosinophils 2 % 1.0-3.0 Basophils 2 % H 0.0-1.0 Compr Metabolic Prof ( CMP ) [id number] 11:43AM Jason Whyte Test Name Result Flag Reference Sodium (Na) 144 mmol/L 136-145 Potassium (K) 4.9 mmol/L 3.5-5.1 Chloride (Cl) 105 mmol/L 98-107 Carbon Dioxide (CO2) 30 mmol/L H 22-29 Anion Gap 14 8-20 Blood Urea Nitrogen (BUN) 16 mg/dL 8-23 Creatinine 0.77 mg/dL 0.60-1.10 Glomerular Filt Rate Calc >60 mL/min/1.73m'2 >60 Glomerular Filt Rate (AA) Calc >60 >60 NOTE: eGFR is not calculated for patients <18 years of age. This is an estimated GFR (CKD EPI) and should not be used for calculating drug doses. mL/min/1.73m'2 Glucose 63 mg/dL L 70-99 Calcium 9.7 mg/dL 8.6-10.2 Total Bilirubin 0.3 mg/dL 0.2-1.2 AST/GOT 17 IU/L 0-32 ALT/GPT 12 IU/L 0-33 Alkaline Phosphatase (ALKP) 77 IU/L 35-104 Total Protein 6.9 g/dL 6.4-8.3 Albumin 4.5 g/dL 3.5-5.2 Globulin, Calc 2.4 g/dL 2.3-3.6 A:G Ratio 1.9 1.0-2.0 Urinalysis ( UA ) W Microscopic 08May2015 11:43AM Jason Whyte Test Name Result Flag Reference Specimen Type URINE CLEAN CATCH Urine Color YELLOW Urine Clarity CLOUDY Urine pH 5.0 5.0-9.0 Urine Specific [place] 1.023 1.001-1.030 Urine Protein NEGATIVE MG/DL <30 Urine Glucose NEGATIVE MG/DL NEG Urine Ketones (Acetone) NEGATIVE MG/DL NEG Urine Occult Blood NEGATIVE NEG Urine Nitrite NEGATIVE NEG Urine Bilirubin NEGATIVE MG/DL NEG Urine Urobilinogen NEGATIVE MG/DL NEG Urine Leukocyte Esterase NEGATIVE NEG Urine RBC 2 /HPF <6 Urine WBC <1 /HPF <6 Squamous Epithelial RARE /LPF Calcium Oxalate Crystal MODERATE /HPF Urine Mucus RARE /LPF TSH W Reflex Free T4 [id number] 11:43AM Jason Whyte Test Name Result Flag Reference TSH w Reflex Free T4 2.86 mIU/mL 0.27-4.20 FREE T4 NOT INDICATED Signatures Electronically signed by : Carey Reyes, ; May 12 2015 2:25PM PLATE HANGER (Author) documented in this encounter Plan of Treatment Not on file documented as of this encounter Visit Diagnoses Not on filedocumented in this encounter Care Teams Director Nursing Service Relationship Specialty Start Date End Date Jason Whyte MD [address] [place] [address] PCP - General 08/28/15 Jason Whyte MD [address] [place] [address] PCP - General 05/08/15 08/27/15 documented as of this encounter
--- OUTSIDE RECORDS SUMMARY | 2024-08-24 04:31 | XMS_ITS | Encounter Summary ---
Author Organization [facility] Address [address] [place] [address]. [place], [place] [address] [place] [address] Care Team Providers Care Director Of Software Engineering Name Role Phone Jason Whyte MD Primary Care Provider [phone] Jason Whyte MD Primary Care Provider [phone] Encounter Details Date Type Department Care Team (Latest Contact Info) Description 01/25/2015 Abstract [facility] Medical Group Social History Tobacco [...] filedocumented in this encounter Care Teams Director Of Software Engineering Relationship Specialty Start Date End Date Jason Whyte MD [address] [place] [address] PCP - General 08/28/15 Jason Whyte MD [address] [place] [address] PCP - General 05/08/15 08/27/15 documented as of this encounter
--- OUTSIDE RECORDS SUMMARY | 2024-08-24 04:31 | XMS_ITS | Encounter Summary ---
Author Organization [facility] Address [address] [place] [address]. [place], [place] [address] [place] [address] Care Team Providers Care Sociology Adjunct Instructor Name Role Phone Jason Whyte MD Primary Care Provider [phone] Jason Whyte MD Primary Care Provider [phone] Encounter Details Date Type Department Care Team (Latest Contact Info) Description 07/30/2015 Abstract [facility] Medical Group , Jude Hernandez MD Social History Tobacco Use Types Packs/Day Years Used Date Smoking Tobacco: Never Assessed Comments Unknown Sex and Gender Information Value Date Recorded Sex Assigned at Not on file Legal Sex Female 6:51 PM CDT Gender Identity Not on file Sexual Orientation Not on file documented as of this encounter Progress Notes * Generic Conversion MD Maricarmen - 07/30/2015 3:02 PM CST Message Recorded as Task Date: 07/30/2015 02:35 PM, Created By: Theresa Selby Task Name: Medical Complaint Callback Assigned To: [facility] Team Isabell Regarding Patient: Yane Fagan, Status: In Progress Comment: Theresa Selby - 30 Jul 2015 2:35 PM TASK CREATED barrios insurance is denying carotid ultrasound as being not medically necessary. Office visit documentation shows no signs of blockage, storke, or heartbeat heard in ears. Jason Whyte - 30 Jul 2015 2:44 PM TASK REASSIGNED: Previously Assigned To Jason Whyte She was advised to have this done by her outdoor studies director as there were changes on her retina that they were concerned about an embolic event. Karolyn Medina - 30 Jul 2015 2:58 PM TASK IN PROGRESS Message: pt notified Signatures Electronically signed by : Karolyn Medina, ; Jul 30 2015 3:03PM ELECTRICAL SYSTEM SPECIALIST (Author) documented in this encounter Plan of Treatment Not on file documented as of this encounter Visit Diagnoses Not on filedocumented in this encounter Care Teams Sociology Adjunct Instructor Relationship Specialty Start Date End Date Jason Whyte MD [address] [place] [address] PCP - General 08/28/15 Jason Whyte MD [address] [place] [address] PCP - General 05/08/15 08/27/15 documented as of this encounter
--- OUTSIDE RECORDS SUMMARY | 2024-08-24 04:31 | XMS_ITS | Encounter Summary ---
Author Organization [facility] Address [address] [place] [address]. [place], [place] [address] [place] [address] Care Team Providers Care Spring Coverer Name Role Phone Jason Whyte MD Primary Care Provider [phone] Jason Whyte MD Primary Care Provider [phone] Encounter Details Date Type Department Care Team (Late st Contact Info) Description 07/21/2015 Abstract [facility] Medical Group Family & Internal Medicine [address] [address] Jason Whyte MD [address] [place] [address] Social History Tobacco Use Types Packs/Day Years Used Date Smoking Tobacco: Never Assessed Comments Unknown Sex and Gender Information Value Date Recorded Sex Assigned at Not on file Legal Sex Female 6:51 PM CDT Gender Identity Not on file Sexual Orientation Not on file documented as of this encounter Last Filed Vital Signs Vital Sign Reading Time Taken Comments Blood Pressure 109/73 07/21/2015 2:13 PM BARRELHEAD INSPECTOR Pulse 90 07/21/2015 2:13 PM BARRELHEAD INSPECTOR Temperature - - Respiratory Rate - - Oxygen Saturation - - Inhaled Oxygen Concentration - - Weight 59.9 kg (132 lb) 07/21/2015 2:13 PM BARRELHEAD INSPECTOR Height 175.3 cm (5' 9 ) 07/21/2015 2:13 PM BARRELHEAD INSPECTOR Body Mass Index 19.49 07/21/2015 2:13 PM BARRELHEAD INSPECTOR documented in this encounter Progress Notes * Jason Whyte MD - 07/21/2015 2:15 PM CST Reason For Visit Acute Visit Chief Complaint C/o patient is here to follow up from seeing endo and opthalmology and was told to follow up with her PCP for an A1c. C/o numbness and tingling sensation of her tongue x 1 month. C/o hoarse voice and sinus drainage x 2-3 days. History of Present Illness HPI Free Text: She was seen by Endocrinology at [facility]. She went there upon referral from her pulmonology for possible adrenal insufficiency. She is having testing done and has a follow up appointment sometime in the middle of this month. 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 She was then told that she needs to see a retina specialist, but she is not sure what the diagnosis is. She was also told that she needs to be checked for diabetes. He also told her to have carotid Doppler studies done. She was also told that she may have macular degeneration. She is still following with Pain Management, she was referred to physical therapy and now has to follow up again with Pain Management. She says that PT was concerned that her symptoms worsened when she increased her activity. She has had a soreness in her neck for about a month. She has also noticed that her tongue has feltnumb. She also feels that her voice is weaker than it has been. She does not have any difficulty swallowing. the feeling is constant and never seems to go away completely. Review of Systems Constitutional, ENT, Cardiovascular, Respiratory, Gastrointestinal, Genitourinary, Integumentary, Neurological, Psychiatric, Endocrine and Hematologic review of systems normal except as noted. Active Problems 1. Allergic reaction (995.3) (T78.40XA) 2. Asthma (493.90) (J45.909) 3. Fibromyalgia (729.1) (M79.7) 4. Gestational diabetes (648.80) (O24.419) 5. Lightheadedness (780.4) (R42) 6. Low back pain radiating to both legs (724.2) (M54.5) 7. Lung cancer (162.9) (C34.90) 8. Neuropathy (355.9) (G62.9) 9. Pain, upper back (724.5) (M54.9) 10. Screening for endocrine, nutritional, metabolic and immunity disorder (V77.99) (Z13.29,Z13.0,Z13.21,Z13.228) 11. Screening for heart disease (V81.2) (Z13.6) Past Medical History 1. History of concussion (V15.52) (Z87.820) 2. History of encephalitis (V12.42) (Z86.61) 3. History of stroke (V12.54) (Z86.73) Surgical History 1. History of Tonsillectomy Family History Mother 1. Family history of asthma (V17.5) (Z82.5) Father 2. Family history of diabetes mellitus (V18.0) (Z83.3) Maternal Grandmother 3. Family history of hypertension (V17.49) (Z82.49) Paternal Grandmother 4. Family history of memory loss (V17.2) (Z82.0) 5. Family history of Parkinson's disease (V17.2) (Z82.0) Maternal Grandfather 6. Family history of malignant neoplasm of urinary bladder (V16.52) (Z80.52) Paternal Grandfather 7. Family history of diabetes mellitus (V18.0) (Z83.3) 8. Family history of prostate cancer (V16.42) (Z80.42) Maternal Aunt 9. Family history of cardiovascular disease (V17.49) (Z82.49) 10. Family history of malignant neoplasm of uterus (V16.49) (Z80.49) Maternal Uncle 11. Family history of cardiovascular disease (V17.49) (Z82.49) Other 12. Family history of malignant neoplasm of breast (V16.3) (Z80.3) Social History ?? Never a smoker ?? from significant other (V61.03) (Z63.5) Current Meds 1. Albuterol Sulfate (2.5 MG/3ML) 0.083% Inhalation Nebulization Solution; Therapy: (Recorded:[id number]) to Recorded 2. Allergy Relief 180 MG Oral Tablet; Take 1 tablet twice daily; Therapy: 28Jan2015 to (Last Rx:28Jan2015) Ordered 3. Cyclobenzaprine HCl - 10 MG Oral Tablet; 1 tablet up to three times a day as needed for pain; Therapy: (Recorded:83Roh6711) to Recorded 4. Spiriva HandiHaler 18 MCG Inhalation Capsule; INHALE CONTENTS OF 1 CAPSULE ONCE DAILY; Therapy: (Recorded:23Yqw7610) to Recorded 5. Symbicort 160-4.5 MCG/ACT Inhalation Aerosol; USE 2 PUFFS BY MOUTH TWICE DAILY; Therapy: (Recorded:[id number]) to Recorded Allergies 1. amitriptyline 2. amoxicillin 3. Codeine 4. Depakote 5. gabapentin 6. hydrocodone 7. Lamotrigine 8. oxycodone 9. Penicillins 10. Tramadol Vitals Recorded: [id number] 02:13PM Heart Rate 90 Respiration 16 Systolic 109 Diastolic 73 O2 Saturation 98 Height 5 ft 9 in Weight 132 lb BMI Calculated 19.49 BSA Calculated 1.73 Physical Exam Constitutional General appearance: No acute distress, well appearing and well nourished. Ears, Nose, Mouth, and Throat External inspection of ears and nose: Normal. Otoscopic examination: Tympanic membranes translucent with normal light reflex. Canals patent without erythema. Oropharynx: Normal with no erythema, edema, exudate or lesions. Pulmonary Respiratory effort: No increased work of breathing or signs of respiratory distress. Auscultation of lungs: Clear to auscultation. Cardiovascular Palpation of heart: Normal PMI, no thrills. Auscultation of heart: Normal rate and rhythm, normal S1 and S2, without murmurs. Musculoskeletal Gait and station: Normal. Neurologic Cranial nerves: Cranial nerves 2-12 intact. Psychiatric Mood and affect: Normal. Results/Data *A1C In Office [id number] 02:16PM Jason Whyte Test Name Result Flag Reference A1C 5.8 4.2% - 6.5% Assessment 1. Hoarseness (784.42) (R49.0) 2. Carotid bruit (785.9) (R09.89) 3. Retinal hemorrhage (362.81) (H35.60) Plan Carotid bruit, Retinal hemorrhage 1. US DUPLEX CAROTID BI; Status:Active; Requested for:[id number]; Perform:Other Radiology; Due:20Aug2015; Last Updated By:Carey Reyes; 07/21/2015 2:40:14 PM;Ordered; For:Carotid bruit, Retinal hemorrhage; Ordered By:Jason Whyte; Chronic sore throat, Hoarseness 2. Otolaryngology Referral Outpatient For: Hoarseness For: Chronic sore throat Status: Active Requested for: [id number] Ordered; For: Chronic sore throat, Hoarseness; Ordered By: Jason Whyte Performed: Due: [id number]; Last Updated By: Theresa Selby; 07/21/2015 4:57:09 PM pt will check with barrios to schedule FamHx: Family history of diabetes mellitus, Gestational diabetes 3. *A1C In Office; Status:Complete; Done: [id number] 02:16PM Performed:In Office; Due:20Aug2015;Ordered; For:FamHx: Family history of diabetes mellitus, Gestational diabetes; Ordered By:Jason Whyte; Signatures Electronically signed by : Jason Whyte M.D.; 2015 9:48PM BARRELHEAD INSPECTOR (Author) documented in this encounter Plan of Treatment Not on file documented as of this encounter Procedures Procedure Name Priority Date/Time Associated Diagnosis Comments HEMOGLOBIN, GLYCOSYLATED Routine 07/21/2015 2:16 PM BARRELHEAD INSPECTOR documented in this encounter Results * HEMOGLOBIN, GLYCOSYLATED (07/21/2015 2:16 PM BARRELHEAD INSPECTOR) HGB A1C 5.8 4.2% - 6.5% [facility] TO EPIC CONVERSION 07/21/2015 2:16 PM BARRELHEAD INSPECTOR 07/21/2015 2:16 PM BARRELHEAD INSPECTOR Narrative [facility] TO EPIC CONVERSION - 07/21/2015 2:15 PM BARRELHEAD INSPECTOR Result Communication: No patient communication needed at this time us Jason Whyte MD LABORATORY Final Result [facility] TO EPIC CONVERSION documented in this encounter Visit Diagnoses Not on filedocumented in this encounter Care Teams Spring Coverer Relationship Specialty Start Date End Date Jason Whyte MD [address] [place] [address] PCP - General 08/28/15 Jason Whyte MD [address] [place] [address] PCP - General 05/08/15 08/27/15 documented as of this encounter
--- OUTSIDE RECORDS SUMMARY | 2024-08-24 04:31 | XMS_ITS | Encounter Summary ---
Author Organization [facility] Address [address] [place] [address]. [place], [place] [address] [place] [address] Care Team Providers Care Fuel Cell Repairer Name Role Phone Jason Whyte MD Primary Care Provider [phone] Jason Whyte MD Primary Care Provider [phone] Encounter Details Date Type Department Care Team (Late st Contact Info) Description 05/08/2015 Abstract [facility] [place] [address] Jason Whyte MD [address] [place] [address] Social History Tobacco Use Types Packs/Day Years Used Date Smoking Tobacco: Never Assessed Comments Unknown Sex and Gender Information Value Date Recorded Sex Assigned at Not on file Legal Sex Female 6:51 PM CDT Gender Identity Not on file Sexual Orientation Not on file documented as of this encounter Plan of Treatment Not on file documented as of this encounter Visit Diagnoses Diagnosis Asthma ([facility]) Unspecified asthma documented in this encounter Care Teams Fuel Cell Repairer Relationship Specialty Start Date End Date Jason Whyte MD [address] [place] [address] PCP - General 08/28/15 Jason Whyte MD [address] [place] [address] PCP - General 05/08/15 08/27/15 documented as of this encounter
--- OUTSIDE RECORDS SUMMARY | 2024-08-24 04:31 | XMS_ITS | Encounter Summary ---
Author Organization [facility] Address [address] [place] [address]. [place], [place] [address] [place] [address] Care Team Providers Care Manager Of Digital Name Role Phone Jason Whyte MD Primary Care Provider [phone] Jason Whyte MD Primary Care Provider [phone] Encounter Details Date Type Department Care Team (Latest Contact Info) Description 03/04/2015 Abstract [facility] Medical Group Social History Tobacco Use [...] on filedocumented in this encounter Care Teams Manager Of Digital Relationship Specialty Start Date End Date Jason Whyte MD [address] [place] [address] PCP - General 08/28/15 Jason Whyte MD [address] [place] [address] PCP - General 05/08/15 08/27/15 documented as of this encounter
--- OUTSIDE RECORDS SUMMARY | 2024-08-24 04:31 | XMS_ITS | Encounter Summary ---
Author Organization [facility] Address [address] [place] [address]. [place] [id number] [place], [place] [address] Care Team Providers Care Trial Justice Name Role Phone Jason Whyte MD Primary Care Provider [phone] Jason Whyte MD Primary Care Provider [phone] Encounter Details Date Type Department Care Team (Latest Contact Info) Description 01/02/2015 Abstract [facility] Medical Group Social History Tobacco Use Types Packs/Day Years Used Date Smoking Tobacco: Never Assessed Comments Unknown Sex and Gender Information Value Date Recorded Sex Assigned at Not on file Legal Sex Female 6:51 PM CDT Gender Identity Not on file Sexual Orientation Not on file documented as of this encounter Progress Notes * Generic Conversion MD Maricarmen - 01/02/2015 4:30 PM CDT Message Recorded as Task Date: 01/02/2015 12:58 PM, Created By: Zainab Reyes Task Name: Medical Complaint Callback Assigned To: [facility] [place] Isabell Regarding Patient: Yane Fagan, Status: In Progress Comment: Zainab Reyes - 02 Jan 2015 12:58 PM TASK CREATED c/o severe back pain. pt states she discuss this back pain with you on 12/18/14, but i read in the office note that she denied any back pain ...pt states she the pain is so bad she is considering goingto ther ER. I offered her an office visit with you next week but she said she is going to be in [place] for a week for seizure testing so she couldnt come in. cb#: [phone] Jason Whyte - 02 Jan 2015 1:42 PM TASK REASSIGNED: Previously Assigned To Jason Whyte If her pain is that severe she needs to go to the ER Zainab Reyes - 02 Jan 2015 4:29 PM TASK IN PROGRESS Message: pt notified-zainab Signatures Electronically signed by : Zainab Reyes, ; Jan 02 2015 4:30PM SOLUTIONS EXECUTIVE SECURITY (Author) documented in this encounter Plan of Treatment Not on file documented as of this encounter Visit Diagnoses Not on filedocumented in this encounter Care Teams Trial Justice Relationship Specialty Start Date End Date Jason Whyte MD [address] [place] [address] PCP - General 08/28/15 Jason Whyte MD [address] [place] [address] PCP - General 05/08/15 08/27/15 documented as of this encounter
--- OUTSIDE RECORDS SUMMARY | 2024-08-24 04:31 | XMS_ITS | Encounter Summary ---
Author Organization [facility] Address [address] [place] [address]. [place], [place] [address] [place] [address] Care Team Providers Care Gas Main And Line Fitter Name Role Phone Jason Whyte MD Primary Care Provider [phone] Jaosn Whyte MD Primary Care Provider [phone] Encounter Details Date Type Department Care Team (Latest Contact Info) Description 01/08/2015 Abstract [facility] Medical Group Social History Tobacco [...] on filedocumented in this encounter Care Teams Gas Main And Line Fitter Relationship Specialty Start Date End Date Jason Whyte MD [address] [place] [address] PCP - General 08/28/15 Jason Whyte MD [address] [place] [address] PCP - General 05/08/15 08/27/15 documented as of this encounter
--- OUTSIDE RECORDS SUMMARY | 2024-08-24 04:31 | XMS_ITS | Encounter Summary ---
Author Organization [facility] Address [address] [place] [address]. [place], [place] [address] [place] [address] Care Team Providers Care Manager Desktop Name Role Phone Jason Whtye MD Primary Care Provider [phone] Encounter Details Date Type Department Care Team (Latest Contact Info) Description 09/18/2015 Abstract [facility] Medical Group [...] filedocumented in this encounter Care Teams Manager Desktop Relationship Specialty Start Date End Date Jason Whyte MD [address] [place] [address] PCP - General 08/28/15 documented as of this encounter
--- OUTSIDE RECORDS SUMMARY | 2024-08-24 04:31 | XMS_ITS | Encounter Summary ---
Author Organization [facility] Address [address] [place] [address]. [place], [place] [id number] [place] [address] Care Team Providers Care Frame Maker Name Role Phone Jason Whyte MD Primary Care Provider [phone] Encounter Details Date Type Department Care Team (Latest Contact Info) Description 09/12/2015 Abstract [facility] Medical Group Social History Tobacco Use [...] on filedocumented in this encounter Care Teams Frame Maker Relationship Specialty Start Date End Date Jason Whyte MD [address] [place] [address] PCP - General 08/28/15 documented as of this encounter
--- OUTSIDE RECORDS SUMMARY | 2024-08-24 04:31 | XMS_ITS | Encounter Summary ---
Author Organization [facility] Address [address] [place] [address]. [place], [place] [address] [place] [address] Care Team Providers Care Circulator Name Role Phone Jason Whyte MD Primary Care Provider [phone] Jason Whyte MD Primary Care Provider [phone] Encounter Details Date Type Department Care Team (Latest Contact Info) Description 03/07/2015 Abstract [facility] Medical Group Social History Tobacco Use [...] on filedocumented in this encounter Care Teams Circulator Relationship Specialty Start Date End Date Jason Whyte MD [address] [place] [address] PCP - General 08/28/15 Jason Whyte MD [address] [place] [address] PCP - General 05/08/15 08/27/15 documented as of this encounter
--- OUTSIDE RECORDS SUMMARY | 2024-08-24 04:31 | XMS_ITS | Encounter Summary ---
Author Organization [facility] Address [address] [place] [address]. [place], [place] [address] [place] [address] Care Team Providers Care Top Hat Body Maker Name Role Phone Jason Whyte MD Primary Care Provider [phone] Jason Whyte MD Primary Care Provider Encounter Details Date Type Department Care Team (Latest Contact Info) Description 02/12/2015 Abstract [facility] Medical Group Social History Tobacco Use [...] on filedocumented in this encounter Care Teams Top Hat Body Maker Relationship Specialty Start Date End Date Jason Whyte MD [address] [place] [address] PCP - General 08/28/15 Jason Whyte MD [address] [place] [address] PCP - General 05/08/15 08/27/15 documented as of this encounter
--- OUTSIDE RECORDS SUMMARY | 2024-08-24 04:31 | XMS_ITS | Encounter Summary ---
Author Organization [facility] Address [address] [place] [address]. [place], [place] [address] [place] [address] Care Team Providers Care Master Barber Name Role Phone Jason Whyte MD Primary Care Provider [phone] Jason Whyte MD Primary Care Provider [phone] Encounter Details Date Type Department Care Team (Latest Contact Info) Description 07/28/2015 Abstract [facility] Medical Group Social [...] on filedocumented in this encounter Care Teams Master Barber Relationship Specialty Start Date End Date Jason Whyte MD [address] [place] [address] PCP - General 08/28/15 Jason Whyte MD [address] [place] [address] PCP - General 05/08/15 08/27/15 documented as of this encounter
--- OUTSIDE RECORDS SUMMARY | 2024-08-24 04:31 | XMS_ITS | Encounter Summary ---
Author Organization [facility] Address [address] [place] [address]. [place], [place] [address] [place] [address] Care Team Providers Care Platform Inspector Name Role Phone Jason Whyte MD Primary Care Provider [phone] Jason Whyte MD Primary Care Provider [phone] Encounter Details Date Type Department Care Team (Latest Contact Info) Description 02/19/2015 Abstract [facility] Medical Group Social History Tobacco Use [...] on filedocumented in this encounter Care Teams Platform Inspector Relationship Specialty Start Date End Date Jason Whyte MD [address] [place] [address] PCP - General 08/28/15 Jason Whyte MD [address] [place] [address] PCP - General 05/08/15 08/27/15 documented as of this encounter
--- OUTSIDE RECORDS SUMMARY | 2024-08-24 04:31 | XMS_ITS | Encounter Summary ---
Author Organization [facility] Address [address] [place] [address]. [place], [place] [address] [place] [address] Care Team Providers Care Bevel Mill Operator Name Role Phone Jason Whyte MD Primary Care Provider [phone] Encounter Details Date Type Department Care Team (Latest Contact Info) Description 06/16/2016 Abstract [facility] Medical Group Social History Tobacco Use Types [...] on filedocumented in this encounter Care Teams Bevel Mill Operator Relationship Specialty Start Date End Date Jason Whyte MD [address] [place] [address] PCP - General 08/28/15 documented as of this encounter
--- OUTSIDE RECORDS SUMMARY | 2024-08-24 04:31 | XMS_ITS | Encounter Summary ---
Author Organization [facility] Address [address] [place] [address]. [place], [place] [address] [place] [address] Care Team Providers Care Supply Controller Name Role Phone Jason Whyte MD Primary Care Provider [phone] Jason Whyte MD Primary Care Provider [phone] Encounter Details Date Type Department Care Team (Latest Contact Info) Description 07/31/2015 Abstract [facility] Medical Group Social History Tobacco Use [...] on filedocumented in this encounter Care Teams Supply Controller Relationship Specialty Start Date End Date Jason Whyte MD [address] [place] [address] PCP - General 08/28/15 Jason Whyte MD [address] [place] [address] PCP - General 05/08/15 08/27/15 documented as of this encounter
--- OUTSIDE RECORDS SUMMARY | 2024-08-24 04:31 | XMS_ITS | Encounter Summary ---
Author Organization [facility] Address [address] [place] [address]. [place], [place] [address] [place] [address] Care Team Providers Care Aircraft Refueler Name Role Phone Jason Whyte MD Primary Care Provider [phone] Encounter Details Date Type Department Care Team (Latest Contact Info) Description 04/09/2016 Abstract [facility] Medical Group Social History Tobacco Use Types Packs/Day Years Used Date Smoking Tobacco: Never Assessed Comments Unknown Sex and Gender Information Value Date Recorded Sex Assigned at Not on file Legal Sex Female 6:51 PM CDT Gender Identity Not on file Sexual Orientation Not on file documented as of this encounter Progress Notes * Generic Conversion MD Maricarmen - 04/09/2016 2:30 PM CDT Message Recorded as Task Date: 04/09/2016 12:27 PM, Created By: Adriana Donaldson Task Name: Medical Complaint Callback Assigned To: [facility]-ronald Whyte Regarding Patient: Yane Fagan, Status: Active Comment: Adriana Donaldson - 09 Apr 2016 12:27 PM TASK CREATED Caller: Self; Medical Complaint; pt was in [place] For CD[facility], stated that she was released 03/25 suffering from extreme fatigue. Any recommendations that may help with this? Is already on bland low residue diet, is finished with Metronidazole, and has taken probiotics with abx and for a few days after. Pt will be seen in office 04/15 Caron Recinos - 09 Apr 2016 12:40 PM TASK REPLIED TO: Previously Assigned To [facility] [place] Joel Whyte it takes a while for the fatigue to resolve. Get plenty of rest and keep herself hydrated. If she thinks she is dehydrated, she needs to return to the ER Message: Pt updated-eleuterio Signatures Electronically signed by : Nora Sal R.N.; Apr 09 2016 2:31PM COMMUNITY [employer]DRAISER (Author) documented in this encounter Plan of Treatment Not on file documented as of this encounter Visit Diagnoses Not on filedocumented in this encounter Care Teams Aircraft Refueler Relationship Specialty Start Date End Date Jason Whyte MD [address] [place] [address] PCP - General 08/28/15 documented as of this encounter
--- OUTSIDE RECORDS SUMMARY | 2024-08-24 04:31 | XMS_ITS | Encounter Summary ---
Author Organization [facility] Address [address] [place] [address]. [place], [place] [address] [place] [address] Care Team Providers Care Event Marketing Assistant Name Role Phone Jason Whyte MD Primary Care Provider [phone] Encounter Details Date Type Department Care Team (Latest Contact Info) Description 01/21/2016 Abstract [facility] Medical Group Social History Tobacco [...] on filedocumented in this encounter Care Teams Event Marketing Assistant Relationship Specialty Start Date End Date Jason Whyte MD [address] [place] [address] PCP - General 08/28/15 documented as of this encounter
--- OUTSIDE RECORDS SUMMARY | 2024-08-24 04:31 | XMS_ITS | Encounter Summary ---
Author Organization [facility] Address [address] [place] [address]. [place], [place] [address] [place] [address] Care Team Providers Care Conduit Helper Name Role Phone Jason Whyte MD Primary Care Provider [phone] Encounter Details Date Type Department Care Team (Latest Contact Info) Description 01/07/[address] [facility] Medical Group Social History Tobacco Use Types [...] on filedocumented in this encounter Care Teams Conduit Helper Relationship Specialty Start Date End Date Jason Whyte MD [address] [place] [address] PCP - General 08/28/15 documented as of this encounter
--- OUTSIDE RECORDS SUMMARY | 2024-08-24 04:31 | XMS_ITS | Encounter Summary ---
Author Organization [facility] Address [address] [place] [address]. [place], [place] [address] [place] [address] Care Team Providers Care Rough And Trueing Machine Operator Name Role Phone Jason Whyte MD Primary Care Provider Encounter Details Date Type Department Care Team (Latest Contact Info) Description 06/07/2016 Abstract [facility] Medical Group Social History Tobacco [...] on filedocumented in this encounter Care Teams Rough And Trueing Machine Operator Relationship Specialty Start Date End Date Jason Whyte MD [address] [place] [address] PCP - General 08/28/15 documented as of this encounter
--- OUTSIDE RECORDS SUMMARY | 2024-08-24 04:31 | XMS_ITS | Encounter Summary ---
Author Organization [facility] Address [address] [place] [address]. [place], [place] [address] [place] [address] Care Team Providers Care Toll Settlement Clerk Name Role Phone Jason Whyte MD Primary Care Provider [phone] Jason Whyte MD Primary Care Provider [phone] Encounter Details Date Type Department Care Team (Late st Contact Info) Description 05/08/2015 Abstract [facility] Medical Group Family & Internal Medicine [address] [phone] Jason Whyte MD [address] [place] [address] Social History Tobacco Use Types Packs/Day Years Used Date Smoking Tobacco: Never Assessed Comments Unknown Sex and Gender Information Value Date Recorded Sex Assigned at Not on file Legal Sex Female 6:51 PM CDT Gender Identity Not on file Sexual Orientation Not on file documented as of this encounter Last Filed Vital Signs Vital Sign Reading Time Taken Comments Blood Pressure 104/63 05/08/2015 10:36 AM CDT Pulse 67 05/08/2015 10:36 AM CDT Temperature - - Respiratory Rate - - Oxygen Saturation - - Inhaled Oxygen Concentration - - Weight 62.1 kg (137 lb) 05/08/2015 10:36 AM CDT Height 175.3 cm (5' 9 ) 05/08/2015 10:36 AM CDT Body Mass Index 20.23 05/08/2015 10:36 AM CDT documented in this encounter Progress Notes * Jason Whyte MD - 05/08/2015 10:30 AM CDT Reason For Visit Acute Visit Chief Complaint C/o low blood pressure, patient seen her neurologist and was told to follow up with cardiology, pt has appt 05/14/15. C/o upper back pain, bilateral arm pain, and shoulder pain with numbness and tingling in her face, arms, and neck x 1 year. History of Present Illness HPI Free Text: She had a NCS done by pain management. This showed that she has a sensory deficit in her feet. She states that she has pain throughout her entire spine. She was told that she needs to have injections by pain management, but her insurance denied these injections. She states that she has to havephysical therapy for 3 months before she is able to have injections. She states that her pain is so severe that she has days which she is not able to walk due to pain. When she saw her neurologist he took orthostatic blood pressures. She was told by him that she needs to follow up with her air hammer stripper. She states that she gets very lightheaded throughout the week.She frequently feels that she is going to lose consciousness. She has problems all of the time. Sheis wondering if the problems in her back could cause her to have heart irregularities and the proble ms with her blood pressure dropping. She has a follow up with her cardiologists on May 14. Review of Systems Constitutional, Eyes, ENT, Cardiovascular, Respiratory, Gastrointestinal, Genitourinary, Integumentary, Psychiatric, Endocrine and Hematologic review of systems normal except as noted. Musculoskeletal: arthralgias. Neurological: dizziness, but no confusion and no difficulty walking. Active Problems 1. Allergic reaction (995.3) (T78.40XA) 2. Asthma (493.90) (J45.909) 3. Fibromyalgia (729.1) (M79.7) 4. Gestational diabetes (648.80) (O24.419) 5. Low back pain radiating to both legs (724.2) (M54.5) 6. Lung cancer (162.9) (C34.90) 7. Neuropathy (355.9) (G62.9) Past Medical History 1. History of concussion [...] (2.5 MG/3ML) 0.083% Inhalation Nebulization Solution; Therapy: (Recorded:[id number]) to Recorded 2. Allergy Relief 180 MG Oral Tablet; Take 1 tablet twice daily; Therapy: 28Jan2015 to (Last Rx:28Jan2015) Ordered 3. Cyclobenzaprine HCl - 10 MG Oral Tablet; 1 tablet up to three times a day as needed for pain; Therapy: (Recorded:19Sep2014) to Recorded 4. Spiriva HandiHaler 18 MCG Inhalation Capsule; INHALE CONTENTS OF 1 CAPSULE ONCE DAILY; Therapy: (Recorded:19Sep2014) to Recorded 5. Symbicort 160-4.5 MCG/ACT Inhalation Aerosol; USE 2 PUFFS BY MOUTH TWICE DAILY; Therapy: (Recorded:[id number]) to Recorded Allergies 1. amitriptyline 2. amoxicillin 3. Codeine 4. Depakote 5. gabapentin 6. hydrocodone 7. Lamotrigine 8. oxycodone 9. Penicillins 10. Tramadol Vitals Recorded: 08May2015 10:36AM Heart Rate 67 Respiration 16 Systolic 104 Diastolic 63 O2 Saturation 98 Height 5 ft 9 in Weight 137 lb BMI Calculated 20.23 BSA Calculated 1.76 Physical Exam Constitutional General appearance: No acute distress, well appearing and well nourished. Pulmonary Respiratory effort: No increased work of breathing or signs of respiratory distress. Auscultation of lungs: Clear to auscultation. Cardiovascular Palpation of heart: Normal PMI, no thrills. Auscultation of heart: Normal rate and rhythm, normal S1 and S2, without murmurs. Examination of extremities for edema and/or varicosities: Normal. Musculoskeletal Gait and station: Normal. Neurologic Cranial nerves: Cranial nerves 2-12 intact. Reflexes: 2+ and symmetric. Sensation: No sensory loss. Psychiatric Mood and affect: Normal. Results/Data CBC W Manual Differential 08May2015 11:43AM Jason Whyte Test Name Result [...] 1.0-2.0 Urinalysis ( UA ) W Microscopic [id number] 11:43AM Jason Whyte Test Name Result Flag Reference Specimen Type URINE CLEAN CATCH Urine Color YELLOW Urine Clarity CLOUDY Urine pH 5.0 5.0-9.0 Urine Specific [place] 1.023 1.001-1.030 Urine Protein NEGATIVE MG/DL <30 [...] RARE /LPF TSH W Reflex Free T4 [id number] 11:43AM Jason Whyte Test Name Result Flag Reference TSH w Reflex Free T4 2.86 mIU/mL 0.27-4.20 FREE T4 NOT INDICATED Counseling The patient was counseled regarding impressions, risks and benefits of treatment options and importance of compliance with treatment. Total time of encounter was 25 minutes and 20 minutes was spent counseling. Assessment 1. Lightheadedness (780.4) (R42) 2. Low back pain radiating to both legs (724.2) (M54.5) 3. Pain, upper back (724.5) (M54.9) Plan Asthma, Fibromyalgia, Gestational diabetes, Lightheadedness, Low back pain radiating to both legs, Neuropathy, Screening for endocrine, nutritional, metabolic and immunity disorder, Screening for heart disease 1. CBC W Manual Differential; Status:Resulted - Requires Verification; Done: 08May2015 11:43AM Performed:[facility] Due:07Jun2015;Ordered; For:Asthma, Fibromyalgia, Gestational diabetes, Lightheadedness, Low back pain radiating to both legs, Neuropathy, Screening for endocrine, nutritional, metabolic and immunity disorder, Screening for heart disease; Ordered By:Jason Whyte; 2. Compr Metabolic Prof ( CMP ); Status:Resulted - Requires Verification; Done: 08May2015 11:43AM Performed:[facility] ([facility]); Due:07Jun2015;Ordered; For:Asthma, Fibromyalgia, Gestational diabetes, Lightheadedness, Low back pain radiating to both legs, Neuropathy, Screening for endocrine, nutritional, metabolic and immunity disorder, Screening for heart disease; Ordered By:Jason Whyte; 3. TSH W Reflex Free T4; Status:Resulted - Requires Verification; Done: 08May2015 11:43AM Performed:[facility]); Due:07Jun2015;Ordered; For:Asthma, Fibromyalgia, Gestational diabetes, Lightheadedness, Low back pain radiating to both legs, Neuropathy, Screening for endocrine, nutritional, metabolic and immunity disorder, Screening for heart disease; Ordered By:Jason Whyte; 4. Urinalysis ( UA ) W Microscopic; Status:Resulted - Requires Verification; Done: 08May2015 11:43AM Performed:[facility]); Due:07Jun2015;Ordered; For:Asthma, Fibromyalgia, Gestational diabetes, Lightheadedness, Low back pain radiating to both legs, Neuropathy, Screening for endocrine, nutritional, metabolic and immunity disorder, Screening for heart disease; Ordered By:Jason Whyte; 5. Call if: You have questions or concerns about your problem.; Status:Canceled - ; Last Updated By:Carey Reyes; 05/10/2015 1:02:12 AM;Ordered; For:Asthma, Fibromyalgia, Gestational diabetes, Lightheadedness, Low back pain radiating to both legs, Neuropathy, Screening for endocrine, nutritional, metabolic and immunity disorder, Screening for heart disease; Ordered By:Jason Whyte; Signatures Electronically signed by : Jason Whyte M.D.; May 11 2015 9:05PM VACUUM CLEANER ASSEMBLER (Author) documented in this encounter Plan of Treatment Not on file documented as of this encounter Procedures Procedure Name Priority Date/Time Associated Diagnosis Comments TSH W/REFLEX Routine 05/08/2015 11:43 AM CDT URINALYSIS, AUTO, COMPLETE Routine 05/08/2015 11:43 AM CDT COMPREHENSIVE METABOLIC PANEL Routine 05/08/2015 11:43 AM CDT CBC, MANUAL DIFF Routine 05/08/2015 11:4 3 AM CDT documented in this encounter Results * (ABNORMAL) CBC, MANUAL DIFF (05/08/2015 11:43 AM CDT) WBC 5.6 4.8 - 10.8 X10'3/uL [facility] TO [facility] CONVERSION RBC 4.28 4.20 - 5.40 X10'6/uL [facility] TO [facility] CONVERSION HGB 13.1 12.0 - 16.0 g/dL [facility] TO [facility] CONVERSION HCT 41.0 38.0 - 48.0 % [facility] TO [facility] CONVERSION MCV 95.8 81.0 - 99.0 fL [facility] TO [facility] CONVERSION MCH 30.6 27.0 - 31.0 pg [facility] TO [facility]IC CONVERSION MCHC 32.0 32.0 - 36.0 g/dL [facility] TO [facility] CONVERSION RDW 13.9 11.5 - 14.5 % [facility] TO [facility] CONVERSION PLT 192 130 - 400 X10'3/uL [facility] TO [facility] CONVERSION GLUCOSE 10.0 9.3 - 12.2 fL [facility] TO [facility] CONVERSION DIFFERENTIAL TYPE MANUAL ME [facility] TO EPIC CONVERSION SEG NEUTROPHILS 62 43.0 - 65.0 % [facility] TO [facility] CONVERSION LYMPHOCYTES 27 20.0 - 46.0 % [facility] TO [facility] CONVERSION MONOCYTES 7 5.0 - 12.0 % [facility] TO [facility] CONVERSION EOSINOPHILS 2 1.0 - 3.0 % [facility] TO [facility] CONVERSION BASOPHILS 2(H) 0.0 - 1.0 % [facility] TO [facility]IC CONVERSION 05/08/2015 11:4 3 AM CDT 05/08/2015 11:43 AM CDT Narrative [facility] TO [facility] CONVERSION - 05/08/2015 8:30 PM CDT Result Communication: Call patient with results Jason Whyte MD LABORATORY Final Result Performing Organization Address City/[facility]/ZIP Co de Phone Number [facility] TO [facility] CONVERSION * TSH W/REFLEX (SNS) (05/08/2015 11:43 AM CDT) TSH 2.86 0.27 - 4.20 mIU/mL [facility] CONVERSION Comment:Result Comment: FREE T4 NOT INDICATED 05/08/2015 11:4 3 AM CDT 05/08/2015 11:43 AM CDT Narrative [facility] CONVERSION - 05/08/2015 8:16 PM CDT Result Communication: Call patient with results Jason Whyte MD LABORATORY Final Result [facility] TO [facility] CONVERSION * (ABNORMAL) COMPREHENSIVE METABOLIC PANEL (05/08/2015 11:43 AM CDT) SODIUM S/P/B 144 136 - 145 mmol/L [facility] TO [facility] CONVERSION POTASSIUM S/P/B 4.9 3.5 - 5.1 mmol/L [facility] TO [facility] CONVERSION CHLORIDE S/P/B 105 98 - 107 mmol/L [facility] TO [facility] CONVERSION CO2 30(H) 22 - 29 mmol/L [facility] TO [facility]IC CONVERSION ANION GAP 14 8 - 20 [facility] T O EPIC CONVERSION BUN 16 8 - 23 mg/dL [facility] TO [facility]IC CONVERSION CREATININE S/P/B 0.77 0.60 - 1.10 mg/dL [facility] TO [facility]IC CONVERSION GFR ESTIMATE >60 >60 mL/min/1 .73m'2 [facility] TO [facility]IC CONVERSION EGFR AFR. AMER. >60 NOTE: eGFR is not calculated for patients <18 years of age. This is an estimated GFR (CKD EPI) and should not be used for calculating drug doses. >60 mL/min/1 .73m'2 [facility] TO [facility]IC CONVERSION GLUCOSE 63(L) 70 - 99 mg/dL [facility] TO [facility] CONVERSION CALCIUM S/P/B 9.7 8.6 - 10.2 mg/dL [facility] TO [facility]IC CONVERSION BILIRUBIN TOTAL S/P/B 0.3 0.2 - 1.2 mg/dL [facility] TO [facility] CONVERSION AST 17 0 - 32 IU/L [facility] TO [facility] CONVERSION ALT 12 0 - 33 IU/L [facility] TO [facility]IC CONVERSION ALKALINE PHOSPHATASE S/P/B 77 35 - 104 IU/L [facility] TO EPIC CONVERSION TOTAL PROTEIN S/P/B 6.9 6.4 - 8.3 g/dL [facility] TO EPIC CONVERSION ALBUMIN S/P/B 4.5 3.5 - 5.2 g/dL [facility] TO EPIC CONVERSION GLOBULIN 2.4 2.3 - 3.6 g/dL [facility] TO [facility] CONVERSION A/G RATIO 1.9 1.0 - 2.0 [facility] TO [facility] CONVERSION 05/08/2015 11:4 3 AM CDT 05/08/2015 11:43 AM CDT Narrative [facility] TO [facility] CONVERSION - 05/08/2015 8:16 PM CDT Result Communication: Call patient with results us Jason Whyte MD LABORATORY Final Result [facility] TO [facility] CONVERSION * URINALYSIS, AUTO, COMPLETE (05/08/2015 11:43 AM CDT) SPECIMEN TYPE URINE CLEAN CATCH [facility] TO [facility] CONVERSION COLOR (U) YELLOW [facility] T O EPIC CONVERSION TRANSPARENCY CLOUDY [facility] P TO EPIC CONVERSION U PH 5.0 5.0 - 9.0 [facility] T O EPIC CONVERSION SPECIFIC GRAVITY (U) 1.023 1.001 - 1.030 [facility] TO [facility]IC CONVERSION PROTEIN (U) NEGATIVE <30 MG/DL [facility] TO [facility]IC CONVERSION GLUCOSE NEGATIVE NEG MG/DL [facility] T O EPIC CONVERSION KETONES MG/DL (U) NEGATIVE NEG MG/DL [facility] TO [facility]IC CONVERSION BLOOD (U) NEGATIVE NEG [facility] T O EPIC CONVERSION NITRITES NEGATIVE NEG [facility] T O EPIC CONVERSION BILIRUBIN (U) NEGATIVE NEG MG/DL [facility] UP TO EPIC CONVERSION UROBILINOGEN NEGATIVE NEG MG/DL [facility] P TO EPIC CONVERSION LEUKOCYTES (U) NEGATIVE NEG [facility] OUP TO EPIC CONVERSION RBC/HPF 2 <6 /HPF [facility] T O EPIC CONVERSION WBC <1 <6 /HPF [facility] T O EPIC CONVERSION SQUAMOUS EPITHELIALS RARE /LPF [facility] TO [facility]IC CONVERSION CA OXALATE CRYSTALS MODERATE /HPF [facility] TO EPIC CONVERSION MUCUS RARE /LPF [facility] T O EPIC CONVERSION 05/08/2015 11:4 3 AM CDT 05/08/2015 11:43 AM CDT Narrative [facility] TO EPIC CONVERSION - 05/08/2015 7:58 PM CDT Result Communication: Call patient with results us Jason Whyte MD URINE ORDERABLES Final Result Performing Organization Address City/State/[facility] Co de Phone Number [facility] TO EPIC CONVERSION documented in this encounter Visit Diagnoses Not on filedocumented in this encounter Care Teams Toll Settlement Clerk Relationship Specialty Start Date End Date Jason Whyte MD [address] [place] [address] PCP - General 08/28/15 Jason Whyte MD [address] [place] [address] PCP - General 05/08/15 08/27/15 documented as of this encounter
--- OUTSIDE RECORDS SUMMARY | 2024-08-24 04:31 | XMS_ITS | Encounter Summary ---
Author Organization [facility] Address [address] [place] [address]. [place], [place] [address] [place] [address] Care Team Providers Care Ramp Jockey Name Role Phone Jason Whyte MD Primary Care Provider [phone] Jason Whyte MD Primary Care Provider [phone] Encounter Details Date Type Department Care Team (Latest Contact Info) Description 01/07/2015 Abstract [facility] Medical Group Social History [...] on filedocumented in this encounter Care Teams Ramp Jockey Relationship Specialty Start Date End Date Jason Whyte MD [address] [place] [address] PCP - General 08/28/15 Jason Whyte MD [address] [place] [address] PCP - General 05/08/15 08/27/15 documented as of this encounter
--- OUTSIDE RECORDS SUMMARY | 2024-08-24 04:31 | XMS_ITS | Encounter Summary ---
Author Organization [facility] Address [address] [place] [address]. [place], [place] [address] [address] Care Team Providers Care Guide Tour Name Role Phone Jason Whyte MD Primary Care Provider [phone] Encounter Details Date Type Department Care Team (Latest Contact Info) Description 06/23/2016 Abstract [facility] Medical Group Social History Tobacco Use Types Packs/Day Years Used Date Smoking Tobacco: Never Assessed Comments Unknown Sex and Gender Information Value Date Recorded Sex Assigned at Not on file Legal Sex Female 6:51 PM CDT Gender Identity Not on file Sexual Orientation Not on file documented as of this encounter Progress Notes * BAR Iqbal - 06/23/2016 1:05 PM CST Message Recorded as Task Date: 06/23/2016 09:31 AM, Created By: Adriana Donaldson Task Name: Call Back Assigned To: [facility] [place] Regarding Patient: Yane Fagan, Status: Active Comment: Adriana Donaldson - 23 Jun 2016 9:31 AM TASK CREATED Caller: Shereen Hardin [phone] calling regarding form sent over 06/16 Message: Wilfred called forms filled out and faxed to number provided-eleuterio Signatures Electronically signed by : Nora Sal RAndreyNAndrey; Jun 23 2016 1:06PM WATCH TRAIN INSPECTOR (Author) documented in this encounter Plan of Treatment Not on file documented as of this encounter Visit Diagnoses Not on filedocumented in this encounter Care Teams Guide Tour Relationship Specialty Start Date End Date Jason Whyte MD [address] [place] [address] PCP - General 08/28/15 documented as of this encounter
--- OUTSIDE RECORDS SUMMARY | 2024-08-24 04:31 | XMS_ITS | Encounter Summary ---
Author Organization [facility] Address [address] [place] [address]. [place], [place] [address] [place] [address] Care Team Providers Care Byproducts Operator Name Role Phone Jason Whyte MD Primary Care Provider [phone] Encounter Details Date Type Department Care Team (Latest Contact Info) Description 09/16/2016 Abstract [facility] Medical Group [...] on filedocumented in this encounter Care Teams Byproducts Operator Relationship Specialty Start Date End Date Jason Whyte MD [address] [place] [address] PCP - General 08/28/15 documented as of this encounter
--- OUTSIDE RECORDS SUMMARY | 2024-08-24 04:31 | XMS_ITS | Encounter Summary ---
Author Organization [facility] Address [address] [place] [address]. [place], [place] [address] [place] [address] Care Team Providers Care Inspecting Supervisor Name Role Phone Jason Whyte MD Primary Care Provider [phone] Jason Whyte MD Primary Care Provider [phone] Encounter Details Date Type Department Care Team (Latest Contact Info) Description 08/01/2015 Abstract [facility] Medical Group Social History Tobacco Use [...] on filedocumented in this encounter Care Teams Inspecting Supervisor Relationship Specialty Start Date End Date Jason Whyte MD [address] [place] [address] PCP - General 08/28/15 Jason Whyte MD [address] [place] [address] PCP - General 05/08/15 08/27/15 documented as of this encounter
--- OUTSIDE RECORDS SUMMARY | 2024-08-24 04:31 | XMS_ITS | Encounter Summary ---
Author Organization [facility] Address [address] [place] [address]. [place], [place] [address] [place] [address] Care Team Providers Care Heating Repair Technician Name Role Phone Jason Whyte MD Primary Care Provider [phone] Encounter Details Date Type Department Care Team (Latest Contact Info) Description 12/04/2015 Abstract [facility] Medical Group Social History Tobacco [...] on filedocumented in this encounter Care Teams Heating Repair Technician Relationship Specialty Start Date End Date Jason Whyte MD [address] [place] [address] PCP - General 08/28/15 documented as of this encounter
--- OUTSIDE RECORDS SUMMARY | 2024-08-24 04:31 | XMS_ITS | Encounter Summary ---
Author Organization [facility] Address [address] [place] [address]. [place], [place] [address] [place] [address] Care Team Providers Care General Surgery Physician Assistant Name Role Phone Jason Whyte MD Primary Care Provider [phone] Jason Whyte MD Primary Care Provider [phone] Encounter Details Date Type Department Care Team (Latest Contact Info) Description 02/25/2015 Abstract [facility] Medical Group Social History Tobacco Use Types Packs/Day Years Used Date Smoking Tobacco: Never Assessed Comments Unknown Sex and Gender Information Value Date Recorded Sex Assigned at Not on file Legal Sex Female 6:51 PM CDT Gender Identity Not on file Sexual Orientation Not on file documented as of this encounter Progress Notes * Generic Conversion MD Maricarmen - 02/25/2015 3:09 PM CDT Message Recorded as Task Date: 02/25/2015 09:52 AM, Created By: Carey Reyes Task Name: Medical Complaint Callback Assigned To: [facility] [place]abell Regarding Patient: Yane Fagan, Status: In Progress Comment: Carey Reyes - 25 Feb 2015 9:52 AM TASK CREATED c.o low back back pain...mri showed OA, nothing acute..pt states she still has a lot of pain and disconfort...cb#: [id number] Jason Whyte - 25 Feb 2015 12:49 PM TASK REASSIGNED: Previously Assigned To Jason Whyte Refer to pain management. Angelique Olivarez - 25 Feb 2015 1:39 PM TASK IN PROGRESS Angelique Olivarez - 25 Feb 2015 1:43 PM TASK EDITED LMTC . FAXED REFERRAL TO [facility] Message: pt notified, referral faxed to janelle Signatures Electronically signed by : Carey Reyes, ; Feb 25 2015 3:09PM ANY COMMODITY BUYER (Author) documented in this encounter Plan of Treatment Not on file documented as of this encounter Visit Diagnoses Not on filedocumented in this encounter Care Teams General Surgery Physician Assistant Relationship Specialty Start Date End Date Jason Whyte MD [address] [place] [address] PCP - General 08/28/15 Jason Whyte MD [address] [place] [address] PCP - General 05/08/15 08/27/15 documented as of this encounter
--- OUTSIDE RECORDS SUMMARY | 2024-08-24 04:31 | XMS_ITS | Encounter Summary ---
Author Organization [facility] Address [address] [place] [address]. [place], [place] [address] [place] [address] Care Team Providers Care Retail Sales Assistant Name Role Phone Jason Whyte MD Primary Care Provider [phone] Encounter Details Date Type Department Care Team (Latest Contact Info) Description 09/01/2015 Abstract [facility] Medical Group Social History Tobacco Use Types Packs/Day Years Used Date Smoking Tobacco: Never Assessed Comments Unknown Sex and Gender Information Value Date Recorded Sex Assigned at Not on file Legal Sex Female 6:51 PM CDT Gender Identity Not on file Sexual Orientation Not on file documented as of this encounter Progress Notes * Jason Whyte MD - 09/01/2015 3:23 PM CST Message Normal Alpha-1 antitripsin PATIENT NOTIFIED -SJS Verified Results Alpha 1 Antitrypsin 28Aug2015 12:43PM aJson Whyte Test Name Result Flag Reference Ardci-4-Efzeaxbnkrx 142 Reference range: 83 to 199 Unit: mg/dL Test Performed by [facility], [facility], [address] [place] [address] Michael Tejada M.D., Ph.D., Director of Laboratories , [place] [id number] Signatures Electronically signed by : Angelique Olivarez MA; Sep 01 2015 4:08PM BRANCH ASSISTANT (Author) documented in this encounter Plan of Treatment Not on file documented as of this encounter Visit Diagnoses Not on filedocumented in this encounter Care Teams Retail Sales Assistant Relationship Specialty Start Date End Date Jason Whyte MD [address] [place] [id number] PCP - General 08/28/15 documented as of this encounter
--- OUTSIDE RECORDS SUMMARY | 2024-08-24 04:31 | XMS_ITS | Encounter Summary ---
Author Organization [facility] Address [address] [place] [address]. [place], [place] [address] [place] [address] Care Team Providers Care Form Maker Plaster Name Role Phone Jason Whyte MD Primary Care Provider [phone] Encounter Details Date Type Department Care Team (Latest Contact Info) Description 12/29/2015 Abstract [facility] Medical Group Social History [...] on filedocumented in this encounter Care Teams Form Maker Plaster Relationship Specialty Start Date End Date Jason Whyte MD [address] [place] [address] PCP - General 08/28/15 documented as of this encounter
--- OUTSIDE RECORDS SUMMARY | 2024-08-24 04:31 | XMS_ITS | Encounter Summary ---
Author Organization [facility] Address [address] [place] [address]. [place], [place] [address] [place] [address] Care Team Providers Care Label Stitcher Name Role Phone Jason Whyte MD Primary Care Provider [phone] Encounter Details Date Type Department Care Team (Latest Contact Info) Description 08/29/2015 Abstract [facility] Medical Group [...] on filedocumented in this encounter Care Teams Label Stitcher Relationship Specialty Start Date End Date Jason Whyte MD [address] [place] [address] PCP - General 08/28/15 documented as of this encounter
--- OUTSIDE RECORDS SUMMARY | 2024-08-24 04:31 | XMS_ITS | Encounter Summary ---
Author Organization [facility] Address [address] [place] [address]. [place], [place] [address] [place] [address] Care Team Providers Care Fitness Director Name Role Phone Jason Whyte MD Primary Care Provider [phone] Jason Whyte MD Primary Care Provider [phone] Encounter Details Date Type Department Care Team (Late st Contact Info) Description 06/25/2015 Abstract [facility] Medical Group Family & Internal Medicine [address] [phone] Jason Whyte MD [address] [place] [address] Social History Tobacco Use Types Packs/Day Years [...] on filedocumented in this encounter Care Teams Fitness Director Relationship Specialty Start Date End Date Jason Whyte MD [address] [place] [address] PCP - General 08/28/15 Jason Whyte MD [address] [place] [address] PCP - General 05/08/15 08/27/15 documented as of this encounter
--- OUTSIDE RECORDS SUMMARY | 2024-08-24 04:31 | XMS_ITS | Encounter Summary ---
Author Organization [facility] Address [address] [place] [address]. [place] [address] [place] [address] Care Team Providers Care Phone Operator Name Role Phone Jason Whyte MD Primary Care Provider [phone] Encounter Details Date Type Department Care Team (Late st Contact Info) Description 08/28/2015 Abstract [facility] Medical Group Family & Internal Medicine [address] [address] Jason Whyte MD [address] [place] [id number] Social History Tobacco Use Types Packs/Day Years Used Date Smoking Tobacco: Never Assessed Comments Unknown Sex and Gender Information Value Date Recorded Sex Assigned at Not on file Legal Sex Female 6:51 PM CDT Gender Identity Not on file Sexual Orientation Not on file documented as of this encounter Last Filed Vital Signs Vital Sign Reading Time Taken Comments Blood Pressure 105/49 08/28/2015 11:41 AM EMERGENCY MEDICAL SERVICES COORDINATOR Pulse 58 08/28/2015 11:41 AM EMERGENCY MEDICAL SERVICES COORDINATOR Temperature - - Respiratory Rate - - Oxygen Saturation - - Inhaled Oxygen Concentration - - Weight 59.9 kg (132 lb) 08/28/2015 11:41 AM EMERGENCY MEDICAL SERVICES COORDINATOR Height 175.3 cm (5' 9 ) 08/28/2015 11:41 AM EMERGENCY MEDICAL SERVICES COORDINATOR Body Mass Index 19.49 08/28/2015 11:41 AM EMERGENCY MEDICAL SERVICES COORDINATOR documented in this encounter Progress Notes * Jason Whyte MD - 08/28/2015 11:00 AM CST Reason For Visit Acute Follow-Up Visit Chief Complaint [facility] ER follow up, pt states she is not doing any better. History of Present Illness HPI Free Text: She was in the ER last week for dizziness. Her complete workup was negative. She feels that this was cardiac in origin but her heart workup was negative. She is having a lot of headache and she feelsthat her heart is very erratic and has been worsening. She has felt strange since last Tuesday. She is not sure if this is from her seizure disorder. She states that for a couple of days afterwardsshe did not feel well. 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 She was referred to a neurosurgeon at [facility] for further evaluation. She is also going to see an ENT at [facility] due to this tumor. She states that she has soreness in my larynx - that is why she wants to see ENT. She states that she had PFTs done by the [facility], and then was told to be checked for alpha-1 antitrypsin. Review of Systems Constitutional, Eyes, ENT, Respiratory, Gastrointestinal, Genitourinary, Musculoskeletal, Integumentary, Neurological, Psychiatric, Endocrine and Hematologic review of systems normal except as noted. Cardiovascular: palpitations. Active Problems 1. Allergic reaction (995.3) (T78.40XA) 2. Asthma (493.90) (J45.909) 3. Carotid bruit (785.9) (R09.89) 4. Chronic sore throat (472.1) (J31.2) 5. Fibromyalgia (729.1) (M79.7) 6. Gestational diabetes (648.80) (O24.419) 7. Hoarseness (784.42) (R49.0) 8. Lightheadedness (780.4) (R42) 9. Low back pain radiating to both legs (724.2) (M54.5) 10. Lung cancer (162.9) (C34.90) 11. Neuropathy (355.9) (G62.9) 12. Pain, upper back (724.5) (M54.9) 13. Retinal hemorrhage (362.81) (H35.60) 14. Screening for endocrine, nutritional, metabolic and immunity disorder (V77.99) (Z13.29,Z13.0,Z13.21,Z13.228) 15. Screening for heart disease (V81.2) (Z13.6) Past Medical History 1. History of concussion (V15.52) (Z87.820) 2. History of encephalitis (V12.42) (Z86.61) 3. History of stroke (V12.54) (Z86.73) Surgical History 1. History of Tonsillectomy Family History 1. Family history of asthma (V17.5) (Z82.5) 2. Family history of diabetes mellitus (V18.0) (Z83.3) 3. Family history of hypertension (V17.49) (Z82.49) 4. Family history of memory loss (V17.2) (Z82.0) 5. Family history of Parkinson's disease (V17.2) (Z82.0) 6. Family history of malignant neoplasm of urinary bladder (V16.52) (Z80.52) 7. Family history of diabetes mellitus (V18.0) (Z83.3) 8. Family history of prostate cancer (V16.42) (Z80.42) 9. Family history of cardiovascular disease (V17.49) (Z82.49) 10. Family history of malignant neoplasm of uterus (V16.49) (Z80.49) 11. Family history of cardiovascular disease (V17.49) (Z82.49) 12. Family history of malignant neoplasm of breast (V16.3) (Z80.3) Social History ?? Never a smoker ?? from significant other (V61.03) (Z63.5) Current Meds 1. Albuterol Sulfate (2.5 MG/3ML) 0.083% Inhalation Nebulization Solution; Therapy: (Recorded:[id number]) to Recorded 2. Aspirin 81 MG Oral Tablet; Therapy: (Recorded:76Ksp7550) to Recorded 3. Cyclobenzaprine HCl - 10 MG Oral Tablet; 1 tablet up to three times a day as needed for pain; Therapy: (Recorded:78Yyx3098) to Recorded 4. Spiriva HandiHaler 18 MCG Inhalation Capsule; INHALE CONTENTS OF 1 CAPSULE ONCE DAILY; Therapy: (Recorded:19Sep2014) to Recorded 5. Symbicort 160-4.5 MCG/ACT Inhalation Aerosol; USE 2 PUFFS BY MOUTH TWICE DAILY; Therapy: (Recorded:53Ubz3793) to Recorded Allergies 1. amitriptyline 2. amoxicillin 3. Codeine 4. Depakote 5. gabapentin 6. hydrocodone 7. Lamotrigine 8. oxycodone 9. Penicillins 10. Tramadol Vitals Recorded: 28Aug2015 11:41AM Heart Rate 58 Respiration 16 Systolic 105 Diastolic 49 O2 Saturation 99 Height 5 ft 9 in Weight 132 [...] of extremities for edema and/or varicosities: Normal. Abdomen Abdomen: Non-tender, no masses. Liver and spleen: No hepatomegaly or splenomegaly. Results/Data Alpha 1 Antitrypsin 28Aug2015 12:43PM Jason Whyte Test Name Result Flag Reference Eptfb-2-Vnfisyqfcgn 142 Reference range: 83 to 199 Unit: mg/dL Test Performed by [facility], [facility], [address] [place] [address] Michael Tejada M.D., Ph.D., Director of Laboratories , CLIA [id number] Assessment 1. Abnormal pulmonary function test (794.2) (R94.2) 2. Dizziness (780.4) (R42) Plan Abnormal pulmonary function test 1. Alpha 1 Antitrypsin; Status:Resulted - Requires Verification; Done: 28Aug2015 12:43PM Performed:[facility]; Due:10Het2309;Ordered; For:Abnormal pulmonary function test; Ordered By:Jason Whyte; Signatures Electronically signed by : Jason Whyte M.D.; Aug 31 2015 9:21PM EMERGENCY MEDICAL SERVICES COORDINATOR (Author) documented in this encounter Plan of Treatment Not on file documented as of this encounter Procedures Procedure Name Priority Date/Time Associated Diagnosis Comments [id number] , TOTAL Routine 08/28/2015 12:43 PM EMERGENCY MEDICAL SERVICES COORDINATOR documented in this encounter Results * [id number], TOTAL (08/28/2015 12:43 PM EMERGENCY MEDICAL SERVICES COORDINATOR) [id number]-[id number] QUANT 142 [employer] TO EPIC CONVERSION Comment: Result Comment: Reference range: 83 to 199 Unit: mg/dL Test Performed by [facility], [employer] [facility], [address] [place] [address] Michael Tejada M.D., Ph.D., Director of Laboratories , CLIA [id number] 08/28/2015 12:4 3 PM EMERGENCY MEDICAL SERVICES COORDINATOR 08/28/2015 12:43 PM EMERGENCY MEDICAL SERVICES COORDINATOR Narrative [employer] TO EPIC CONVERSION - 08/30/2015 8:19 PM EMERGENCY MEDICAL SERVICES COORDINATOR Result Communication: Call patient with results Jason Whyte MD LABORATORY Final Result [employer] TO EPIC CONVERSION documented in this encounter Visit Diagnoses Not on filedocumented in this encounter Care Teams Phone Operator Relationship Specialty Start Date End Date Jason Whyte MD [address] [place] [address] PCP - General 08/28/15 documented as of this encounter
--- OUTSIDE RECORDS SUMMARY | 2024-08-24 04:31 | XMS_ITS | Encounter Summary ---
Author Organization [facility] Address [facility] [place] [address] [place] [address] Care Team Providers Care Clinical Product Manager Name Role Phone Jason Whyte MD Primary Care Provider Encounter Details Date Type Department Care Team (Late st Contact Info) Description 08/28/2015 Abstract [facility] [place] [address] Jason Whyte MD [facility] [place] [address] Social History Tobacco Use Types Packs/Day Years [...] Procedure Name Priority Date/Time Associated Diagnosis Comments [id number] , TOTAL Routine 08/28/2015 12:43 PM COLLAR SETTER OVERLOCK documented in this encounter Results * [id number], TOTAL (08/28/2015 12:43 PM COLLAR SETTER OVERLOCK) K-3-[id number] QUANT 142 83 - 199 mg/dL 08/30/2015 8:19 PM COLLAR SETTER OVERLOCK [facility] Comment: Test Performed by Dylan Neal, [facility], [address] [place] [address] Michael Tejada M.D., Ph.D., Director of Laboratories , [facility] [id number] SERUM SPECIMEN / Unknown 08/28/2015 12:43 PM COLLAR SETTER OVERLOCK 08/28/2015 7:55 PM COLLAR SETTER OVERLOCK us Generic Conversion Md [facility] Final R esult Performing Organization Address City/State/[facility] [place] Co de Phone Number [facility] [address] [place] [address], documented in this encounter Visit Diagnoses Diagnosis Abnormal results of pulmonary function studies Nonspecific abnormal results of pulmonary system function study documented in this encounter Care Teams Clinical Product Manager Relationship Specialty Start Date End Date Jason Whyte MD [address] [place] [address] PCP - General 08/28/15 documented as of this encounter
--- OUTSIDE RECORDS SUMMARY | 2024-08-24 04:31 | XMS_ITS | Encounter Summary ---
Author Organization [facility] Address [address] [place] [address]. [place], [place] [address] [place] [address] Care Team Providers Care Metal Room Dental Technician Name Role Phone Jason Whyte MD Primary Care Provider Jason Whyte MD Primary Care Provider [phone] Encounter Details Date Type Department Care Team (Latest Contact Info) Description 01/23/2015 Abstract [facility] Medical Group Social History Tobacco Use [...] on filedocumented in this encounter Care Teams Metal Room Dental Technician Relationship Specialty Start Date End Date Jason Whyte MD [address] [place] [address] PCP - General 08/28/15 Jason Whyte MD [address] [place] [address] PCP - General 05/08/15 08/27/15 documented as of this encounter
--- OUTSIDE RECORDS SUMMARY | 2024-08-24 04:31 | XMS_ITS | Encounter Summary ---
Author Organization [facility] Address [address] [place] [address]. [place], [place] [address] [place] [address] Care Team Providers Care Perinatal Tech Name Role Phone Jason Whyte MD Primary Care Provider [phone] Jason Whyte MD Primary Care Provider [phone] Encounter Details Date Type Department Care Team (Latest Contact Info) Description 12/19/2014 Abstract [facility] Medical Group Social History Tobacco [...] on filedocumented in this encounter Care Teams Perinatal Tech Relationship Specialty Start Date End Date Jason Whyte MD [address] [place] [address] PCP - General 08/28/15 Jason Whyte MD [address] [place] [address] PCP - General 05/08/15 08/27/15 documented as of this encounter
--- OUTSIDE RECORDS SUMMARY | 2024-08-24 04:31 | XMS_ITS | Encounter Summary ---
Author Organization [facility] Address [address] [place] [address]. [place], [place] [address] [place] [address] Care Team Providers Care Supervisor Wool Shearing Name Role Phone Jason Whyte MD Primary Care Provider [phone] Jason Whyte MD Primary Care Provider [phone] Encounter Details Date Type Department Care Team (Latest Contact Info) Description 04/14/2015 Abstract [facility] Medical Group Social History Tobacco [...] on filedocumented in this encounter Care Teams Supervisor Wool Shearing Relationship Specialty Start Date End Date Jason Whyte MD [address] [place] [address] PCP - General 08/28/15 Jason Whyte MD [address] [place] [address] PCP - General 05/08/15 08/27/15 documented as of this encounter
--- OUTSIDE RECORDS SUMMARY | 2024-08-24 04:31 | XMS_ITS | Encounter Summary ---
Author Organization [facility] Address [address] [place] [address]. [place], [place] [address] [place] [address] Care Team Providers Care Security Test Engineer Name Role Phone Jason Whyte MD Primary Care Provider [phone] Jason Whyte MD Primary Care Provider [phone] Encounter Details Date Type Department Care Team (Late st Contact Info) Description 01/28/2015 Abstract [facility] Medical Group Family & Internal Medicine [address] [address] Jason Whyte MD [address] [place] [address] Social History Tobacco Use Types Packs/Day Years Used Date Smoking Tobacco: Never Assessed Comments Unknown Sex and Gender Information Value Date Recorded Sex Assigned at Not on file Legal Sex Female 6:51 PM CDT Gender Identity Not on file Sexual Orientation Not on file documented as of this encounter Last Filed Vital Signs Vital Sign Reading Time Taken Comments Blood Pressure 118/80 01/28/2015 3:21 PM CDT Pulse 75 01/28/2015 3:21 PM CDT Temperature - - Respiratory Rate - - Oxygen Saturation - - Inhaled Oxygen Concentration - - Weight 58.5 kg (129 lb) 01/28/2015 3:21 PM CDT Height 175.3 cm (5' 9 ) 01/28/2015 3:21 PM CDT Body Mass Index 19.05 01/28/2015 3:21 PM CDT documented in this encounter Progress Notes * Jason Whyte MD - 01/28/2015 3:15 PM CDT Reason For Visit Acute Visit Chief Complaint C/o pt states she has a rash on her arms and has red bumps?? on her back and abdomen since Tuesday. Pt states she was given a Dilaudid injection at the ER over the weekend for her back pain and thinksshe had a reaction to the medication. History of Present Illness She was seen in the ER multiple times last week and weekend. When she was at [facility] she was given a dose of dilaudid IV and she immediately had itching at the IV site, then a few hours later she started getting a rash over her entire body and itching over her body. She did not haveany difficulty breathing or swallowing. She did not go back to the ER. She did not take any OTC medications. Review of Systems Constitutional, Eyes, ENT, Cardiovascular, Respiratory, Gastrointestinal, Genitourinary, Musculoskeletal, Neurological, Psychiatric, Endocrine and Hematologic review of systems normal except as noted. Integumentary: itching. Active Problems 1. Asthma (493.90) (J45.909) 2. Fibromyalgia (729.1) (M79.7) 3. Gestational diabetes (648.80) (O24.419) 4. Lung cancer (162.9) (C34.90) 5. Neuropathy (355.9) (G62.9) Past Medical History 1. [...] (2.5 MG/3ML) 0.083% Inhalation Nebulization Solution; Therapy: (Recorded:19Sep2014) to Recorded 2. Cyclobenzaprine HCl - 10 MG Oral Tablet; 1 tablet up to three times a day as needed for pain; Therapy: (Recorded:19Sep2014) to Recorded 3. Spiriva HandiHaler 18 MCG Inhalation Capsule; INHALE CONTENTS OF 1 CAPSULE ONCE DAILY; Therapy: (Recorded:19Sep2014) to Recorded 4. Symbicort 160-4.5 MCG/ACT Inhalation Aerosol; USE 2 PUFFS BY MOUTH TWICE DAILY; Therapy: (Recorded:19Sep2014) to Recorded Allergies 1. amitriptyline 2. amoxicillin 3. Codeine 4. Depakote 5. gabapentin 6. hydrocodone 7. Lamotrigine 8. oxycodone 9. Penicillins 10. Tramadol Vitals Recorded: 28Jan2015 03:21PM Temperature 98.8 F Heart Rate 75 Respiration 16 Systolic 118 Diastolic 80 Height 5 ft 9 in Weight 129 lb BMI Calculated 19.05 BSA Calculated 1.71 Physical Exam Constitutional General appearance: No acute distress, well appearing and well nourished. Pulmonary Respiratory effort: No increased work of breathing or signs of respiratory distress. Auscultation of lungs: Clear to auscultation. Cardiovascular Palpation of heart: Normal PMI, no thrills. Auscultation of heart: Normal rate and rhythm, normal S1 and S2, without murmurs. Assessment 1. Allergic reaction (995.3) (T78.40XA) Plan Allergic reaction 1. Allergy Relief 180 MG Oral Tablet; Take 1 tablet twice daily Rx By: Jason Whyte; Dispense: 0 Days ; #:14 Tablet; Refill: 0; For: Allergic reaction; NESTOR = N;Record Signatures Electronically signed by : Jason Whyte M.D.; Jan 28 2015 5:07PM GUARDIAN AD LITEM (Author) documented in this encounter Plan of Treatment Not on file documented as of this encounter Visit Diagnoses Not on filedocumented in this encounter Care Teams Security Test Engineer Relationship Specialty Start Date End Date Jason Whyte MD [address] [place] [address] PCP - General 08/28/15 Jason Whyte MD [address] [place] [address] PCP - General 05/08/15 08/27/15 documented as of this encounter
--- OUTSIDE RECORDS SUMMARY | 2024-08-24 04:31 | XMS_ITS | Encounter Summary ---
Author Organization [facility] Address [address] [place] [address]. [place], [place] [address] [place] [address] Care Team Providers Care Vendor Management Associate Name Role Phone Jason Whyte MD Primary Care Provider [phone] Jason Whyte MD Primary Care Provider Encounter Details Date Type Department Care Team (Latest Contact Info) Description 12/31/2014 Abstract [facility] Medical Group Social History Tobacco Use [...] on filedocumented in this encounter Care Teams Vendor Management Associate Relationship Specialty Start Date End Date Jason Whyte MD [address] [place] [address] PCP - General 08/28/15 Jason Whyte MD [address] [place] [address] PCP - General 05/08/15 08/27/15 documented as of this encounter
--- OUTSIDE RECORDS SUMMARY | 2024-08-24 04:31 | XMS_ITS | Encounter Summary ---
Author Organization [facility] Address [address] [place] [address]. [place], [place] [address] [place] [address] Care Team Providers Care Bulldogger Name Role Phone Jason Whyte MD Primary Care Provider [phone] Jason Whyte MD Primary Care Provider [phone] Encounter Details Date Type Department Care Team (Latest Contact Info) Description 06/10/2015 Abstract [facility] Social History Tobacco [...] on filedocumented in this encounter Care Teams Bulldogger Relationship Specialty Start Date End Date Jason Whyte MD [address] [place] [address] PCP - General 08/28/15 Jason Whyte MD [address] [place] [address] PCP - General 05/08/15 08/27/15 documented as of this encounter
--- OUTSIDE RECORDS SUMMARY | 2024-08-24 04:31 | XMS_ITS | Encounter Summary ---
Author Organization [facility] Address [address] [place] [address]. [place], [place] [address] [place] [address] Care Team Providers Care Flour Inspector Name Role Phone Jason Whyte MD Primary Care Provider [phone] Encounter Details Date Type Department Care Team (Latest Contact Info) Description 03/25/2016 Abstract [facility] Medical Group Social History [...] on filedocumented in this encounter Care Teams Flour Inspector Relationship Specialty Start Date End Date Jason Whyte MD [address] [place] [address] PCP - General 08/28/15 documented as of this encounter
--- OUTSIDE RECORDS SUMMARY | 2024-08-24 04:31 | XMS_ITS | Encounter Summary ---
Author Organization [facility] Address [address] [place] [address]. [place], [place] [address] [place] [address] Care Team Providers Care Mine Development Engineer Name Role Phone Jason Whyte MD Primary Care Provider [phone] Encounter Details Date Type Department Care Team (Latest Contact Info) Description 03/28/2016 Abstract [facility] Medical Group Social History Tobacco [...] on filedocumented in this encounter Care Teams Mine Development Engineer Relationship Specialty Start Date End Date Jason Whyte MD [address] [place] [address] PCP - General 08/28/15 documented as of this encounter
--- OUTSIDE RECORDS SUMMARY | 2024-08-24 04:31 | XMS_ITS | Encounter Summary ---
Author Organization [facility] Address [facility] [place] [address] [place] [address] Care Team Providers Care Drill Press Operator Numerical Control Name Role Phone Jason Whyte MD Primary Care Provider [phone] Encounter Details Date Type Department Care Team (Late st Contact Info) Description 01/13/2016 Abstract [facility] Medical Group Family & Internal Medicine [address] [address] Jason Whyte MD [address] [place] [address] [id number] Social History Tobacco Use Types Packs/Day Years Used Date Smoking Tobacco: Never Assessed Comments Unknown Sex and Gender Information Value Date Recorded Sex Assigned at Not on file Legal Sex Female 6:51 PM CDT Gender Identity Not on file Sexual Orientation Not on file documented as of this encounter Last Filed Vital Signs Vital Sign Reading Time Taken Comments Blood Pressure 110/70 01/13/2016 2:45 PM CDT Pulse 76 01/13/2016 2:45 PM CDT Temperature - - Respiratory Rate - - Oxygen Saturation - - Inhaled Oxygen Concentration - - Weight 62.1 kg (137 lb) 01/13/2016 2:45 PM CDT Height 175.3 cm (5' 9 ) 01/13/2016 2:45 PM CDT Body Mass Index 20.23 01/13/2016 2:45 PM CDT documented in this encounter Progress Notes * Jason Whyte MD - 01/13/2016 2:15 PM CDT Reason For Visit Acute Visit Chief Complaint Patient states she was walking down a dimly lit [place] way and ran directly into a wall. She c/o sight disturbance in right eye. She c/o numbness in back b/l extremities. Right leg swelling knee and up. History of Present Illness HPI Free Text: She is here for follow up from [facility] after she walked into a wall one month prior to going to the ER. She states that she woke up the morning that she went to the ER as she was feeling disoriented. The records from the ER are not available at the time of her visit. She states that she wasgiven pain medications, did x-rays and a CT scan but she is not sure what part of her body they didthe testing on. She was seen by neurology and was told to follow up with them in their office. She was not admitted to the hospital, she was discharged directly from the ER. She states that she has had multiple episodes like this within the past year and no one is able to figure out what is going on. The day after she was in the ER she was feeling much improved. She still is having headaches on and off. She has stopped all caffeine for the past year. She states that after running into the wall (as above) she is having pain in her back on both sides. She states that this comes and goes. Review of Systems Constitutional, Eyes, ENT, Cardiovascular, Respiratory, Gastrointestinal, Genitourinary, Musculoskeletal, Integumentary, Neurological, Psychiatric, Endocrine and Hematologic review of systems normal except as noted. Active Problems 1. Abnormal pulmonary function test (794.2) (R94.2) 2. Allergic reaction (995.3) (T78.40XA) 3. Asthma (493.90) (J45.909) 4. Carotid bruit (785.9) (R09.89) 5. Chronic sore throat (472.1) (J31.2) 6. Dizziness (780.4) (R42) 7. Fibromyalgia (729.1) (M79.7) 8. Gestational diabetes (648.80) (O24.419) 9. Hoarseness (784.42) (R49.0) 10. Lightheadedness (780.4) (R42) 11. Low back pain radiating to both legs (724.2) (M54.5) 12. Lung cancer (162.9) (C34.90) 13. Neuropathy (355.9) (G62.9) 14. Pain, upper back (724.5) (M54.9) 15. Retinal hemorrhage (362.81) (H35.60) 16. Screening for endocrine, nutritional, metabolic and immunity disorder (V77.99) (Z13.29,Z13.0,Z13.21,Z13.228) 17. Screening for heart disease (V81.2) (Z13.6) Past [...] (2.5 MG/3ML) 0.083% Inhalation Nebulization Solution; Therapy: (Recorded:35Oip7412) to Recorded 2. Aspirin 81 MG TABS; Therapy: (Recorded:95Ysw7374) to Recorded 3. Cyclobenzaprine HCl - 10 MG Oral Tablet; 1 tablet up to three times a day as needed for pain; Therapy: (Recorded:08Vio4092) to Recorded 4. Spiriva HandiHaler 18 MCG Inhalation Capsule; INHALE CONTENTS OF 1 CAPSULE ONCE DAILY; Therapy: (Recorded:19Sep2014) to Recorded 5. Symbicort 160-4.5 MCG/ACT Inhalation Aerosol; USE 2 PUFFS BY MOUTH TWICE DAILY; Therapy: (Recorded:19Sep2014) to Recorded Allergies 1. amitriptyline 2. amoxicillin 3. Codeine 4. Depakote 5. gabapentin 6. hydrocodone 7. Lamotrigine 8. oxycodone 9. Penicillins 10. Tramadol Vitals Recorded: 13Jan2016 02:45PM Heart Rate 76 Respiration 18 Systolic 110 Diastolic 70 O2 Saturation 98 Height 5 ft 9 in Weight 137 lb BMI Calculated 20.23 BSA Calculated 1.76 Physical Exam Constitutional General appearance: No acute distress, well appearing and well nourished. Eyes Conjunctiva and lids: No swelling, erythema or discharge. Pupils and irises: Equal, round and reactive to light. Ears, Nose, Mouth, and Throat External inspection [...] 2+ and symmetric. Sensation: No sensory loss. Assessment 1. Lightheadedness (780.4) (R42) 2. Dizziness (780.4) (R42) 3. Low back pain radiating to both legs (724.2) (M54.5) Plan Low back pain radiating to both legs 1. Call if: The pain seems worse.; Status:Complete; Done: 17Jan2016 10:46PM Ordered; For:Low back pain radiating to both legs; Ordered By:Jason Whyte; Signatures Electronically signed by : Jason Whyte M.D.; Jan 17 2016 10:46PM QUILL PICKING MACHINE OPERATOR (Author) documented in this encounter Plan of Treatment Not on file documented as of this encounter Visit Diagnoses Not on filedocumented in this encounter Care Teams Drill Press Operator Numerical Control Relationship Specialty Start Date End Date Jason Whyte MD [address] [place] [address] PCP - General 08/28/15 documented as of this encounter
--- OUTSIDE RECORDS SUMMARY | 2024-08-24 04:31 | XMS_ITS | Encounter Summary ---
Author Organization [facility] Address [address] [place] [address]. [place], [place] [address] [place] [address] Care Team Providers Care Document Management Specialist Name Role Phone Jason Whyte MD Primary Care Provider [phone] Jason Whyte MD Primary Care Provider [phone] Encounter Details Date Type Department Care Team (Latest Contact Info) Description 08/19/2015 Abstract [facility] Medical Group Social History [...] on filedocumented in this encounter Care Teams Document Management Specialist Relationship Specialty Start Date End Date Jason Whyte MD [address] [place] [address] PCP - General 08/28/15 Jason Whyte MD [address] [place] [address] PCP - General 05/08/15 08/27/15 documented as of this encounter
--- OUTSIDE RECORDS SUMMARY | 2024-08-24 04:31 | XMS_ITS | Encounter Summary ---
Author Organization [facility] Address [address] [place] [address]. [place], [place] [address] [place] [address] Care Team Providers Care Planning Assistant Name Role Phone Jason Whyte MD Primary Care Provider [phone] Jason Whyte MD Primary Care Provider [phone] Encounter Details Date Type Department Care Team (Latest Contact Info) Description 04/29/2015 Abstract [facility] Medical Group Social History Tobacco Use [...] on filedocumented in this encounter Care Teams Planning Assistant Relationship Specialty Start Date End Date Jason Whyte MD [address] [place] [address] PCP - General 08/28/15 Jason Whyte MD [address] [place] [address] PCP - General 05/08/15 08/27/15 documented as of this encounter
--- OUTSIDE RECORDS SUMMARY | 2024-08-24 04:31 | XMS_ITS | Encounter Summary ---
Author Organization [facility] Address [address] [place] [address]. [place], [place] [address] [place] [address] Care Team Providers Care Citrix Systems Administrator Name Role Phone Jason Whyte MD Primary Care Provider [phone] Jason Whyte MD Primary Care Provider [phone] Encounter Details Date Type Department Care Team (Latest Contact Info) Description 08/26/2015 Abstract [facility] Medical Group Social History Tobacco Use [...] on filedocumented in this encounter Care Teams Citrix Systems Administrator Relationship Specialty Start Date End Date Jason Whyte MD [address] [place] [address] PCP - General 08/28/15 Jason Whyte MD [address] [place] [address] PCP - General 05/08/15 08/27/15 documented as of this encounter
--- OUTSIDE RECORDS SUMMARY | 2024-08-24 04:31 | XMS_ITS | Encounter Summary ---
Author Organization [facility] Address [address] [place] [address]. [place], [place] [address] [place] [address] Care Team Providers Care Corporate Development Associate Name Role Phone Jason Whyte MD Primary Care Provider [phone] Encounter Details Date Type Department Care Team (Latest Contact Info) Description 02/12/2016 Abstract [facility] Medical Group Social History Tobacco [...] on filedocumented in this encounter Care Teams Corporate Development Associate Relationship Specialty Start Date End Date Jason Whyte MD [address] [place] [address] PCP - General 08/28/15 documented as of this encounter
--- OUTSIDE RECORDS SUMMARY | 2024-08-24 04:31 | XMS_ITS | Encounter Summary ---
Author Organization [facility] Address [address] [place] [address]. [place] [address] [place] [address] Care Team Providers Care Psychiatry Resident Name Role Phone Jason Whyte MD Primary Care Provider [phone] Encounter Details Date Type Department Care Team (Late st Contact Info) Description 04/15/2016 Abstract [facility] Medical Group Family & Internal Medicine [address] [address] Jason Whyte MD [address] [place] [address] [phone] Social History Tobacco Use Types Packs/Day Years [...] Mass Index 19.35 04/15/2016 12:12 PM CDT documented in this encounter Progress Notes * Jason Whyte MD - 04/15/2016 11:30 AM CDT Reason For Visit Chronic Recheck Visit Chief Complaint Patient is here to follow up from recent hosptialization History of Present Illness HPI Free Text: She is here today for followup after a recent hospitalization from [facility] on March 22, 2016 for C. difficile and was discharged on March 25, 2016. She describes today that she still suffers from extreme fatigue and exhaustion. She developed a high fever with a temperature of 102. She went to the for this and was just sent home on some prescription medication. She already finished taking metronidazole. She is also on probiotics with antibiotics, hydrating and resting herself, and on a bland low-residue diet. Despite all this, she is still having symptoms with some loose stools and diarrhea. Review of Systems Constitutional, Eyes, ENT, Cardiovascular, Respiratory, Genitourinary, Musculoskeletal, Integumentary, Neurological, Psychiatric and Hematologic review of systems normal except as noted. Gastrointestinal: diarrhea. feelings of weakness Active Problems 1. Abnormal pulmonary function test [...] (2.5 MG/3ML) 0.083% Inhalation Nebulization Solution; Therapy: (Recorded:[id number]) to Recorded 2. Aspirin 81 MG TABS; Therapy: (Recorded:10Lvn1994) to Recorded Allergies 1. amitriptyline 2. amoxicillin 3. Codeine 4. Depakote 5. gabapentin 6. hydrocodone 7. Lamotrigine 8. oxycodone 9. Penicillins 10. Tramadol Vitals Recorded: 15Apr2016 12:21PM Recorded: 15Apr2016 12:12PM Heart Rate 53 Respiration 18 Systolic 94 84 Diastolic 66 72 O2 Saturation 96 Height 5 ft 9 in Weight 131 lb BMI Calculated 19.35 BSA Calculated 1.73 Physical Exam Constitutional General appearance: No acute distress, well appearing and well nourished. Eyes Conjunctiva and lids: No swelling, erythema or discharge. Ears, Nose, Mouth, and Throat External inspection [...] Liver and spleen: No hepatomegaly or splenomegaly. Musculoskeletal Gait and station: Normal. Neurologic Cranial nerves: Cranial nerves 2-12 intact. Psychiatric Orientation to person, place, and time: Normal. Mood and affect: Normal. Assessment 1. Fatigue (780.79) (R53.83) 2. Diarrhea (787.91) (R19.7) Plan Gastroenterology Referral. Outpatient For: Pancreatitis Status: Hold For - Manual Activation Requested for: [id number] Ordered; For: Pancreatitis; Ordered By: Jason Whyte Performed: Due: [id number]; Last Updated By: Nora Sal; 04/15/2016 4:33:06 PM Discussion/Summary We will refer her to gastroenterology for evaluation as her symptoms have not improved. Signatures Electronically signed by : Jason Whyte M.D.; Apr 15 2016 9:43PM FUND DEVELOPMENT MANAGER (Author) documented in this encounter Plan of Treatment Not on file documented as of this encounter Visit Diagnoses Not on filedocumented in this encounter Care Teams Psychiatry Resident Relationship Specialty Start Date End Date Jason Whyte MD [address] [place] [address] PCP - General 08/28/15 documented as of this encounter
--- OUTSIDE RECORDS SUMMARY | 2024-08-24 04:31 | XMS_ITS | Encounter Summary ---
Author Organization [facility] Address [address] [place] [address]. [place], [place] [address] [place] [address] Care Team Providers Care Regional Cra Name Role Phone Jason Whyte MD Primary Care Provider [phone] Jason Whyte MD Primary Care Provider [phone] Encounter Details Date Type Department Care Team (Latest Contact Info) Description 2015 Abstract [facility] Medical Group Social History [...] on filedocumented in this encounter Care Teams Regional Cra Relationship Specialty Start Date End Date Jason Whyte MD [address] [place] [address] PCP - General 08/28/15 Jason Whyte MD [address] [place] [address] PCP - General 05/08/15 08/27/15 documented as of this encounter
--- OUTSIDE RECORDS SUMMARY | 2024-08-24 04:31 | XMS_ITS | Encounter Summary ---
Author Organization [facility] Address [address] [place] [address]. [place], [place] [address] [place] [address] Care Team Providers Care Library Technology Instructor Name Role Phone Jason Whyte MD Primary Care Provider [phone] Jason Whyte MD Primary Care Provider [phone] Encounter Details Date Type Department Care Team (Latest Contact Info) Description 07/23/2015 Abstract [facility] Medical Group Social History Tobacco [...] on filedocumented in this encounter Care Teams Library Technology Instructor Relationship Specialty Start Date End Date Jason Whyte MD [address] [place] [address] PCP - General 08/28/15 Jason Whyte MD [address] [place] [address] PCP - General 05/08/15 08/27/15 documented as of this encounter
--- OUTSIDE RECORDS SUMMARY | 2024-08-24 04:31 | XMS_ITS | Encounter Summary ---
Author Organization [facility] Address [address] [place] [address]. [place], [place] [address] [place] [address] Care Team Providers Care Batteryman Name Role Phone Jason Whyte MD Primary Care Provider [phone] Jason Whyte MD Primary Care Provider [phone] Encounter Details Date Type Department Care Team (Late st Contact Info) Description 02/10/2015 Abstract [facility] Family & Internal Medicine [address] [phone] Jason Whyte MD [address] [place] [address] Social History Tobacco Use Types Packs/Day Years Used Date Smoking Tobacco: Never Assessed Comments Unknown Sex and Gender Information Value Date Recorded Sex Assigned at Not on file Legal Sex Female 6:51 PM CDT Gender Identity Not on file Sexual Orientation Not on file documented as of this encounter Last Filed Vital Signs Vital Sign Reading Time Taken Comments Blood Pressure 102/68 02/10/2015 3:15 PM CDT Pulse 85 02/10/2015 3:15 PM CDT Temperature - - Respiratory Rate - - Oxygen Saturation - - Inhaled Oxygen Concentration - - Weight 60.8 kg (134 lb) 02/10/2015 3:15 PM CDT Height 175.3 cm (5' 9 ) 02/10/2015 3:15 PM CDT Body Mass Index 19.79 02/10/2015 3:15 PM CDT documented in this encounter Progress Notes * Jason Whyte MD - 02/10/2015 3:00 PM CDT Reason For Visit Acute Follow-Up Visit Chief Complaint [facility] ER follow up for low back pain, using ibuprofen with no benefit. Pt states she has numbness in both legs. History of Present Illness HPI Free Text: She states that she continues to have lower back pain. She has been to the ER multiple times. she states that when they gave her dilaudid she had an allergic reaction. She feels that her pain worsened when she had her study for seizures at [facility] and she had to stay in bed for long periods of time.She does get some relief when she lays down. She states that she feels that her right lower extremity is weaker than the left, but she feels that she has weakness in both LE. She does feels like she trips over her feet due to weakness in her LE. She does get tingling that radiates down her right LE. She feels that she is very unsteady on her feet. She does feel that when she is having a lot of pain and numbness that she has difficulty emptying her bladder. Review of Systems Constitutional, Eyes, ENT, Cardiovascular, Respiratory, Gastrointestinal, Genitourinary, Musculoskeletal, Integumentary, Neurological, Psychiatric, Endocrine and Hematologic review of systems normal except as noted. Active Problems 1. Allergic reaction (995.3) (T78.40XA) 2. Asthma (493.90) (J45.909) 3. Fibromyalgia (729.1) (M79.7) 4. Gestational diabetes (648.80) (O24.419) 5. Lung cancer (162.9) (C34.90) 6. Neuropathy (355.9) (G62.9) Past Medical History 1. [...] Nebulization Solution; Therapy: (Recorded:19Sep2014) to Recorded 2. Allergy Relief 180 MG [...] oxycodone 9. Penicillins 10. Tramadol Vitals Recorded: 10Feb2015 03:15PM Heart Rate 85 Respiration 16 Systolic 102 Diastolic 68 Height 5 ft 9 in Weight 134 lb BMI Calculated 19.79 BSA Calculated 1.74 Physical Exam Constitutional General appearance: No acute distress, well appearing and well nourished. Pulmonary Respiratory effort: No increased work of breathing or signs of respiratory distress. Auscultation of lungs: Clear to auscultation. Cardiovascular Palpation of heart: Normal PMI, no thrills. Auscultation of heart: Normal rate and rhythm, normal S1 and S2, without murmurs. Musculoskeletal Gait and station: Abnormal. Gait evaluation demonstrated shuffling. Digits and nails: Normal without clubbing or cyanosis. Inspection/palpation of joints, bones, and muscles: Normal. Neurologic Cranial nerves: Cranial nerves 2-12 intact. Reflexes: 2+ and symmetric. Sensation: Abnormal. Sensory exam: light touch was not intact. Assessment 1. Low back pain radiating to both legs (724.2) (M54.5) Plan Low back pain radiating to both legs 1. XR L-SPINE 2-3 VIEW ( Routine ); Status:Active; Requested for:10Feb2015; Perform:Other Radiology; Due:[id number]; Last Updated By:Angelique Olivarez; 02/10/2015 3:45:13 PM;Ordered;For:Low back pain radiating to both legs; Ordered By:Jason Whyte; 2. Call if: You have pain in the lower back.; Status:Active; Requested for:10Feb2015; Last Updated By:Angelique Olivarez; 02/10/2015 3:45:13 PM;Ordered; For:Low back pain radiating to both legs; Ordered By:Jason Wyhte; Signatures Electronically signed by : Jason Whyte M.D.; Feb 17 2015 8:43PM PAN RECLAIM PROCESSOR (Author) documented in this encounter Plan of Treatment Not on file documented as of this encounter Visit Diagnoses Not on filedocumented in this encounter Care Teams Batteryman Relationship Specialty Start Date End Date Jason Whyte MD [address] [place] [address] PCP - General 08/28/15 Jason Whyte MD [address] [place] [address] PCP - General 05/08/15 08/27/15 documented as of this encounter
--- OUTSIDE RECORDS SUMMARY | 2024-08-24 04:31 | XMS_ITS | Encounter Summary ---
Author Organization [facility] Address [address] [place] [address]. [place], [place] [address] [place] [address] Care Team Providers Care Cigarette Lighter Repairer Name Role Phone Jason Whyte MD Primary Care Provider [phone] Jason Whyte MD Primary Care Provider [phone] Encounter Details Date Type Department Care Team (Latest Contact Info) Description 01/27/2015 Abstract [facility] Social History Tobacco Use Types Packs/Day Years Used Date Smoking Tobacco: Never Assessed Comments Unknown Sex and Gender Information Value Date Recorded Sex Assigned at Not on file Legal Sex Female 6:51 PM CDT Gender Identity Not on file Sexual Orientation Not on file documented as of this encounter Progress Notes * Generic Conversion MD Maricarmen - 01/27/2015 4:12 PM CDT Message Recorded as Task Date: 01/24/2015 02:42 PM, Created By: Adriana Donaldson Task Name: Medical Complaint Callback Assigned To: [facility] Team Isabell Regarding Patient: Yane Fagan, Status: In Progress Comment: Adriana Donaldson - 24 Jan 2015 2:42 PM TASK CREATED Caller: Self; Medical Complaint; Pt was in [facility] ER 01/23 and 01/24 for middle back pain, did testing blood work, xray and US, did not find a diagnosis. Stating that morphine they gave her is not helping at all. Asking for referral and any instructions in the meantime. Adriana Donaldson - 27 Jan 2015 10:10 AM TASK EDITED Went to [facility] on Tuesday and developed fever, added abx, started itching. She now has rash all over abdomen that look like tiny red spots that she has had for a long time and [facility] nurseactually commented on it. pt would like to be seen today if possible. Jason Whyte - 27 Jan 2015 1:09 PM TASK REASSIGNED: Previously Assigned To Jason Whyte We can see her for the rash, but only the rash, she will need another appointment if she wants to discuss the back pain. Bonita Reyes - 27 Jan 2015 4:08 PM TASK IN PROGRESS Message: PT NOTIFIED, APPT MADE-BONITA Signatures Electronically signed by : Bonita Reyes, ; Jan 27 2015 4:12PM DIRECTOR LIFE SCIENCES (Author) documented in this encounter Plan of Treatment Not on file documented as of this encounter Visit Diagnoses Not on filedocumented in this encounter Care Teams Cigarette Lighter Repairer Relationship Specialty Start Date End Date Jason Whyte MD [address] [place] [address] PCP - General 08/28/15 Jason Whyte MD [address] [place] [address] PCP - General 05/08/15 08/27/15 documented as of this encounter
--- OUTSIDE RECORDS SUMMARY | 2024-08-24 04:31 | XMS_ITS | Encounter Summary ---
Author Organization [facility] Address [address] [place] [address]. [place], [place] [address] [place] [address] Care Team Providers Care Clinical Quality Assurance Associate Name Role Phone Jason Whyte MD Primary Care Provider [phone] Jason Whyte MD Primary Care Provider [phone] Encounter Details Date Type Department Care Team (Latest Contact Info) Description 08/06/2015 Abstract [facility] Social History Tobacco Use Types [...] on filedocumented in this encounter Care Teams Clinical Quality Assurance Associate Relationship Specialty Start Date End Date Jason Whyte MD [address] [place] [address] PCP - General 08/28/15 Jason Whyte MD [address] [place] [address] PCP - General 05/08/15 08/27/15 documented as of this encounter
--- OUTSIDE RECORDS SUMMARY | 2024-08-24 04:32 | XMS_ITS | Encounter Summary ---
Author Organization [facility] Address [address] [place] [address]. [place], [place] [id number] [place] [address] Care Team Providers Care Automated Teller Manager Name Role Phone Jason Whyte MD Primary Care Provider [phone] Jason Whyte MD Primary Care Provider [phone] Encounter Details Date Type Department Care Team (Latest Contact Info) Description 09/20/2014 Abstract [facility] Social History Tobacco Use [...] on filedocumented in this encounter Care Teams Automated Teller Manager Relationship Specialty Start Date End Date Jason Whyte MD [address] [place] [address] PCP - General 08/28/15 Jason Whyte MD [address] [place] [address] PCP - General 05/08/15 08/27/15 documented as of this encounter
--- OUTSIDE RECORDS SUMMARY | 2024-08-24 04:32 | XMS_ITS | Encounter Summary ---
Author Organization [facility] Address [address] [place] [address]. [place] [address] [place] [address] Care Team Providers Care Vertical Boring Mill Operator Name Role Phone Jason Whyte MD Primary Care Provider [phone] Jason Whyte MD Primary Care Provider [phone] Encounter Details Date Type Department Care Team (Latest Contact Info) Description 09/28/2014 Abstract [facility] Jude Hernadez MD Social History Tobacco Use Types Packs/Day Years Used Date Smoking Tobacco: Never Assessed Comments Unknown Sex and Gender Information Value Date Recorded Sex Assigned at Not on file Legal Sex Female 6:51 PM CDT Gender Identity Not on file Sexual Orientation Not on file documented as of this encounter Progress Notes * Jude Hernandez Md, MD - 09/28/2014 10:42 AM CST [facility] Authorization Release of Information First Name: Yane Ken initial: Last Name: Gracia King Kimberlee authorize [facility] to release any and all healthcare information about me to my [facility] personal health record for my own uses and purposes. I acknowledge that such healthcare information may include the following: x-rays, clinical diagnosis, histories of present illnesses, immunizations, allergies, prescription drug information, mental health screenings, treatment, including psychotherapy notes, diagnostic screening and testing, laboratory results, HIV/AIDS, infectious disease, sexually transmitted infection, genetic testing, substance/alcohol use and leanna tment history, clinical procedures, domestic violence, child abuse, family abuse, medical research,clinical trials, billing, account, and insurance information. I acknowledge that my authorization includes the authorization to disclose any information or records (within the scope of the authorization) that [facility] has received about me from other healthcare providers or facilities. [facility] may, within its discretion, withhold from disclosure any of the above information as permitted or required by law. Access to treatment or services may not be denied to me if I decline to sign this Authorization or revoke my Authorization. However, without this Authorization, my Provider will not electronically release my healthcare information to my [facility] personal health record. I may revoke this Authorization at any time. Such revocation will promptly take effect except to the extent that [facility] already has acted based on this Authorization. I may revoke this Authorization by removing [facility] as a health care provider with whichI want to be connected on my [facility] account or providing my request to [facility]. However, I acknowledge that data previously submitted by [facility] as authorized by me prior to my subsequent revocation of this Authorization will remain in my [facility] account. This authorization shall end upon the earliest of (1) the termination of the connection between my healthcare provider and my [facility] (2) upon my written request submitted to [email or web address]. For Authorized Representatives of Patients younger than 18 years old: This Authorization shall upon the earliest of: (1) the date the minor reaches the age of 18; or (2) the date [facility] receives written revocation from the minor, as an emancipated minor with legal authority to managehis/her own healthcare. I have been informed that once my healthcare information is disclosed to [facility], it will nolonger be protected health information covered by the Health Insurance Portability and Accountability Act of 1996 ( HIPAA ) and may be subject to further disclosure, subject to the [facility] Terms of Use, Privacy Policy and applicable federal and state law with respect to re- disclosures of health information. I understand that [facility] is not responsible for my health information once that data isdisclosed to [facility] pursuant to this Authorization. I have the right to receive a copy of this Authorization and may do so by clicking [Print] above. Signed on 09/28/2014 Please complete the following information: Yane Fagan 1960 If signing on behalf of a Patient, please complete the following: Relationship to Patient: [Place x in the appropriate box below] [X] Patient [ ] Parent/Guardian/Other Legal Information Technology Program Manager By clicking [I ACCEPT], I acknowledge and agree to the terms of this Authorization. documented in this encounter Plan of Treatment Not on file documented as of this encounter Visit Diagnoses Not on filedocumented in this encounter Care Teams Vertical Boring Mill Operator Relationship Specialty Start Date End Date Jason Whyte MD [address] [place] [address] PCP - General 08/28/15 Jason Whyte MD [address] [place] [address] PCP - General 05/08/15 08/27/15 documented as of this encounter
--- OUTSIDE RECORDS SUMMARY | 2024-08-24 04:32 | XMS_ITS | Encounter Summary ---
Author Organization [facility] Address [address] [place] [address]. [place], [place] [address] [place] [address] Care Team Providers Care Couture Dressmaker Name Role Phone Jason Whyte MD Primary Care Provider Jason Whyte MD Primary Care Provider [phone] Encounter Details Date Type Department Care Team (Late st Contact Info) Description 09/19/2014 Abstract [facility] Family & Internal Medicine [address] [phone] Jason Whyte MD [address] [place] [address] Social History Tobacco Use Types Packs/Day Years Used Date Smoking Tobacco: Never Assessed Comments Unknown Sex and Gender Information Value Date Recorded Sex Assigned at Not on file Legal Sex Female 6:51 PM CDT Gender Identity Not on file Sexual Orientation Not on file documented as of this encounter Last Filed Vital Signs Vital Sign Reading Time Taken Comments Blood Pressure 93/65 09/19/2014 1:56 PM MICA MACHINE OPERATOR Pulse 64 09/19/2014 1:56 PM MICA MACHINE OPERATOR Temperature - - Respiratory Rate - - Oxygen Saturation - - Inhaled Oxygen Concentration - - Weight 60.8 kg (134 lb) 09/19/2014 1:56 PM MICA MACHINE OPERATOR Height 175.3 cm (5' 9 ) 09/19/2014 1:56 PM MICA MACHINE OPERATOR Body Mass Index 19.79 09/19/2014 1:56 PM MICA MACHINE OPERATOR documented in this encounter Progress Notes * Jason Whyte MD - 09/19/2014 1:15 PM CST Reason For Visit Reason For Visit: New Patient Visit Chief Complaint Chief Complaint Free Text: New patient, get established. History of Present Illness HPI Free Text: She follows with a neurologist in [place] for multiple clarice problems. In June she thought that she might be having a heart attack and was seen in the ER for a chest pain that worsened. She had a chemical stress test by Dr. Vann which was normal. She had lung cancer almost 5 years ago. it was a non-small cell cancer. She had a right lobectomy, she did not have any chemotherapy or radiation. She still follows with Dr. Wetzel for problem. Ron follows with Dr. Hutson at [facility] also. She was also diagnosed with asthma after he lung CA. She states that she follows with a neurologist in [place] who has treated her for suspected seizures. She has not been able to tolerate medications so she is not taking anything at this time. She states that she had blood work done while she was hospitalized in July, she was told that her cholesterol was normal, but she does not know her exact numbers. She is scheduled for a sleep study as one of her neurologist is concerned about her sleep patterns. Review of Systems Complete-Female: Constitutional: negative. Eyes: negative. ENT: negative. Cardiovascular: negative. Respiratory: negative. Gastrointestinal: negative. Genitourinary: negative. Musculoskeletal: negative. Integumentary negative. Breasts Negative. Neurological Negative and As Noted in HPI. Psychiatric: negative. Endocrine Negative. Hematologic and Lymphatic: negative. Active Problems 1. Fibromyalgia (729.1) (M79.7) 2. Gestational diabetes (648.80) (O24.419) 3. Lung cancer (162.9) (C34.90) 4. Neuropathy (355.9) (G62.9) Past Medical History 1. [...] of malignant neoplasm of breast (V16.3) (Z80.3) ?? GRE[employer]UNT Social History ?? Never a smoker (V49.89) (Z78.9) ?? from significant other (V61.03) (Z63.5) Current Meds 1. Albuterol Sulfate (2.5 MG/3ML) 0.083% Inhalation Nebulization Solution; Therapy: (Recorded:[id number]) to Recorded 2. Cyclobenzaprine HCl - 10 MG Oral Tablet; 1 tablet up to three times a day as needed for pain; Therapy: (Recorded:[id number]) to Recorded 3. Spiriva HandiHaler 18 MCG Inhalation Capsule; INHALE CONTENTS OF 1 CAPSULE ONCE DAILY; Therapy: (Recorded:[id number]) to Recorded 4. Symbicort 160-4.5 MCG/ACT Inhalation Aerosol; USE 2 PUFFS BY MOUTH TWICE DAILY; Therapy: (Recorded:[id number]) to Recorded Allergies 1. amitriptyline 2. amoxicillin 3. Codeine 4. Depakote 5. gabapentin 6. hydrocodone 7. Lamotrigine 8. oxycodone 9. Penicillins 10. Tramadol Vitals Vital Signs [Data Includes: Current Encounter] Recorded by : Carey Reyes at [id number] 01:56PM Temperature 97.2 F Heart Rate 64 Respiration 16 Systolic 93 Diastolic 65 O2 Saturation 98 Height 5 ft 9 in Weight 134 [...] 2-12 intact. Psychiatric Mood and affect: Normal. Assessment 1. Neuropathy (355.9) (G62.9) 2. Fibromyalgia (729.1) (M79.7) 3. Encounter for preventive health examination (V70.0) (Z00.00) 4. Asthma (493.90) (J45.909) Plan 1. Follow-up visit in 6 months Outpatient Follow-up Status: Hold For - Scheduling Requested for: [id number] Ordered; For: Asthma, Fibromyalgia, Neuropathy; Ordered By: Jason Whyte Performed: Due: [id number] Plan Free Text: Time spent with patient in direct patient care >30 minutes. Signatures Electronically signed by : Jason Whyte M.D.; Sep 26 2014 8:18PM MICA MACHINE OPERATOR (Author) documented in this encounter Plan of Treatment Not on file documented as of this encounter Visit Diagnoses Not on filedocumented in this encounter Care Teams Couture Dressmaker Relationship Specialty Start Date End Date Jason Whyte MD [address] [place] [address] PCP - General 08/28/15 Jason Whyte MD [address] [place] [address] PCP - General 05/08/15 08/27/15 documented as of this encounter
--- OUTSIDE RECORDS SUMMARY | 2024-08-24 04:32 | XMS_ITS | Encounter Summary ---
Author Organization [facility] Address [address] [place] [address]. [place], [place] [address] [place] [address] Care Team Providers Care Business Development Name Role Phone Jason Whyte MD Primary Care Provider [phone] Jason Whyte MD Primary Care Provider Encounter Details Date Type Department Care Team (Late st Contact Info) Description 12/18/2014 Abstract [facility] Medical [facility] Family & Internal Medicine [address] [phone] Jason Whyte MD [address] [place] [address] Social History Tobacco Use Types Packs/Day Years Used Date Smoking Tobacco: Never Assessed Comments Unknown Sex and Gender Information Value Date Recorded Sex Assigned at Not on file Legal Sex Female 6:51 PM CDT Gender Identity Not on file Sexual Orientation Not on file documented as of this encounter Last Filed Vital Signs Vital Sign Reading Time Taken Comments Blood Pressure 104/67 12/18/2014 10:49 AM CDT Pulse 73 12/18/2014 10:49 AM CDT Temperature - - Respiratory Rate - - Oxygen Saturation - - Inhaled Oxygen Concentration - - Weight 59.9 kg (132 lb) 12/18/2014 10:49 AM CDT Height 175.3 cm (5' 9 ) 12/18/2014 10:49 AM CDT Body Mass Index 19.49 12/18/2014 10:49 AM CDT documented in this encounter Progress Notes * Jason Whyte MD - 12/18/2014 10:15 AM CDT Reason For Visit Acute Visit Chief Complaint Patient is here to go over her CT Chest. History of Present Illness She is scheduled to have testing for seizures done at the end of December. She is going to be admitted to [facility] for the testing. She was Admitted to [facility] last June for chest pain. Her workup was negative. She did follow up with a certified coder and was told that there was a signal between her brain and her heartwhich is causing problems. She had a CT scan done for Dr. Wetzel for a follow up from her lung cancer surgery. She received the results and was found to have a kidney stone which she is concerned about and also about the listing of emphysema on the report. She does not have any pain in her flank or back pain. She does see a housekeeping aid at [facility] for her lungs, she has had PFTs done (which I do not have copies) and she states that she was told that her lung function was reduced but she was never told she had emphysema. She is not sure which doctors to have records transferred from, she has seen so many doctors in thepast few years. Review of Systems Constitutional, Eyes, ENT, Cardiovascular, Respiratory, Gastrointestinal, Genitourinary, Musculoskeletal, Integumentary, Neurological, Psychiatric, Endocrine and Hematologic review of systems normal except as noted. Active Problems 1. Asthma (493.90) (J45.909) 2. [...] (2.5 MG/3ML) 0.083% Inhalation Nebulization Solution; Therapy: (Recorded:[id number]) to Recorded 2. Cyclobenzaprine HCl - 10 MG Oral Tablet; 1 tablet up to three times a day as needed for pain; Therapy: (Recorded:[id number]) to Recorded 3. Spiriva HandiHaler 18 MCG Inhalation Capsule; INHALE CONTENTS OF 1 CAPSULE ONCE DAILY; Therapy: (Recorded:19Sep2014) to Recorded 4. Symbicort 160-4.5 MCG/ACT Inhalation Aerosol; USE 2 PUFFS BY MOUTH TWICE DAILY; Therapy: (Recorded:[id number]) to Recorded Allergies 1. amitriptyline 2. amoxicillin 3. Codeine 4. Depakote 5. gabapentin 6. hydrocodone 7. Lamotrigine 8. oxycodone 9. Penicillins 10. Tramadol Vitals Recorded: [id number] 10:49AM Heart Rate 73 Respiration 16 Systolic 104 Diastolic 67 O2 Saturation 97 Height 5 ft 9 in Weight 132 [...] rhythm, normal S1 and S2, without murmurs. Counseling Total time of encounter was 25 minutes and 20 minutes was spent counseling. Assessment 1. Asthma (493.90) (J45.909) Plan Asthma 1. Follow-up visit in 6 months Outpatient Follow-up Status: Complete Done: [id number] Ordered; For: Asthma; Ordered By: Jason Whyte Performed: Due: [id number]; Last Updated By: Theresa Selby; 12/18/2014 11:13:34 AM I reviewed the CT scan results with her. I assured her that the kidney stone found on the CT was very small and that there is a low likelihood that this would cause problems. If she would start to have pain in her upper back it would be a sharp and severe pain. She was instructed to call the officeif she has pain or any blood in her urine. I encouraged her to contact her housekeeping aid to discuss the findings of emphysema on her CT. This is likely a longstanding problem, which she does not recall being told. Signatures Electronically signed by : Jason Whyte M.D.; Dec 18 2014 11:19AM HELP DESK COORDINATOR (Author) documented in this encounter Plan of Treatment Not on file documented as of this encounter Visit Diagnoses Not on filedocumented in this encounter Care Teams Business Development Relationship Specialty Start Date End Date Jason Whyte MD [address] [place] [address] PCP - General 08/28/15 Jason Whyte MD [address] [place] [address] PCP - General 05/08/15 08/27/15 documented as of this encounter
--- OUTSIDE RECORDS SUMMARY | 2024-08-24 04:32 | XMS_ITS | Encounter Summary ---
Author Organization [facility] Address [address] [place] [address]. [place], [place] [id number] [place] [address] Care Team Providers Care Physician Support Coordinator Name Role Phone Jason Whyte MD Primary Care Provider [phone] Jason Whyte MD Primary Care Provider [phone] Encounter Details Date Type Department Care Team (Latest Contact Info) Description 12/11/2014 Abstract [facility] Medical Group Social History Tobacco [...] on filedocumented in this encounter Care Teams Physician Support Coordinator Relationship Specialty Start Date End Date Jason Whyte MD [address] [place] [address] PCP - General 08/28/15 Jason Whyte MD [address] [place] [address] PCP - General 05/08/15 08/27/15 documented as of this encounter
--- OUTSIDE RECORDS SUMMARY | 2024-08-24 04:32 | XMS_ITS | Encounter Summary ---
Author Organization [facility] Address [address] [place] [address]. [place], [place] [id number] [place] [address] Care Team Providers Care Grinder Setup Operator Name Role Phone Jason Whyte MD Primary Care Provider Jason Whyte MD Primary Care Provider Encounter Details Date Type Department Care Team (Latest Contact Info) Description 11/13/2014 Abstract [facility] Medical Group Social [...] on filedocumented in this encounter Care Teams Grinder Setup Operator Relationship Specialty Start Date End Date Jason Whyte MD [address] [place] [address] PCP - General 08/28/15 Jason Whyte MD [address] [place] [address] PCP - General 05/08/15 08/27/15 documented as of this encounter
--- OUTSIDE RECORDS SUMMARY | 2024-08-24 04:32 | XMS_ITS | Encounter Summary ---
Author Organization [facility] Address [address] [place] [address]. [place], [place] [id number] [place] [address] Care Team Providers Care Blade Aligner Name Role Phone Jason Whyte MD Primary Care Provider [phone] Jason Whyte MD Primary Care Provider [phone] Encounter Details Date Type Department Care Team (Latest Contact Info) Description 12/12/2014 Abstract [facility] Medical Group Social History Tobacco [...] on filedocumented in this encounter Care Teams Blade Aligner Relationship Specialty Start Date End Date Jason Whyte MD [address] [place] [address] PCP - General 08/28/15 Jason Whyte MD [address] [place] [address] PCP - General 05/08/15 08/27/15 documented as of this encounter
--- OUTSIDE RECORDS SUMMARY | 2024-08-24 04:33 | XMS_ITS | Encounter Summary ---
Author Organization [facility] Address [address] [facility] [address] [place] [address] Phone Care Team Providers Care Service Observer Chief Name Role Phone Michael Sherman MD Primary Care Prov ider Neil Bates MD Unavailable Reason for Referral * Procedure (Routine) - Closed Specialty Diagnoses / Procedures Referred By Chelsy herbert Referred To Contact Diagnoses Asthma-COPD overlap syndrome (HCC) Procedures Pulmonary Function Test -[facility] Adult PFT Lab- CAM-8D; Spirometry Bi Ware MD [address] [facility] [address] [place] [address] Phone: tel: fax: Referral ID Status Reason Start Date Expiration Date Visits Re quested Visits Authorized [id number] Closed 12/12/2023 01/10/2025 1 1 Encounter Details Date Type Department Care Team (Late st Contact Info) Description 12/12/2023 Telephone [facility] Pulmonary [facility] [address] [place] [address] [place] [address] Martínez Wilcox, MICHAEL Social History Tobacco Use Types Packs/Day Years [...] of Binge Drinking Not on file 09/16 Personal Safety Answer Date Recorded Getting School Help Needed Not on file 07/25 Comments No Sex and Gender Information Value Date Recorded Sex Assigned at Not on file 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 ----- Message from Allison Howard CMA sent at 12/09/2023 3:50 PM CDT ----- Pt called to schedule an appt with . documented in this encounter Plan of Treatment Not on file documented as of this encounter Results * Pulmonary Function Test - (04/03/2024 2:53 PM CDT) FVC PRE 3.06 L [facility] FVC %PRE PRED 82 % [facility] FEV1 PRE 1.87 L [facility] FEV1 %PRE PRED 65 % [facility] FEV1/FVC PRE 61.1 % [facility] Anatomical Region Laterality Modality PFT 04/03/2024 2:42 PM CDT Narrative 04/03/2024 7:06 PM CDT PFT performed at:->[facility] Adult PFT Lab- CAM-8D Procedure:->Spirometry Pulmonary Function Test Interpretation SPIROMETRY: There is a decrease in expiratory airflow at all lung volumes. The FEV1 to FVC ratio is reduced. The inspiratory loop is normal. Impression: There is a moderate obstructive defect. Compared with most recent study, there has been no significant interval change. The attending pulmonary physician certifies a physician presence in the [facility] Suite during the administration of aerosolized bronchodilator. The attending pulmonary physician certifies that he/she has reviewed and interpreted the graphic and numerical data of this pulmonary function study and agrees with the written final report. The lower limit of normal for PaO2 and %HbO2 is age dependent. However, the [facility] Pulmonary Function Laboratory defines hypoxemia as a PaO2 <56 mm Hg or a %HbO2 <89%. Bi Ware MD PFT ORDERABLES Krystyna l Result documented in this encounter Visit Diagnoses Diagnosis Asthma-COPD overlap syndrome (HCC)- Primary Asthma-COPD overlap syndrome (HCC) documented in this encounter Care Teams Service Observer Chief Relationship Specialty Start Date End Date Michael Sherman MD [address] [place] [address] PCP - General 01/28/17 Neil Bates MD [address] [address] Consulting Physician Cardiology 03/17/20 documented as of this encounter
--- OUTSIDE RECORDS SUMMARY | 2024-08-24 04:33 | XMS_ITS | Encounter Summary ---
Author Organization [facility] Healthcare Address [address] [place] [address] Care Team Providers Care Material Handler 1St Shift Name Role Phone Michael Sherman MD Primary Care Prov ider Neil Bates MD Unavailable Encounter Details Date Type Department Care Team (Latest Contact Info) Description 08/17/2023 1:15 PM MAILING SPECIALIST Office Visit [facility] Cardiology [address] [place] [address] Neil Bates MD [address] [address] Palpitations (Primary Dx); PAT (paroxysmal atrial tachycardia); PSVT (paroxysmal supraventricular tachycardia); Status post placement of implantable loop recorder; Pulmonary hypertension (HCC); Lipid screening Social History Tobacco Use Types Packs/Day Years Used Date Smoking Tobacco: Never Smokeless Tobacco: Never Tobacco Cessation:Counseling Given: Not Answered Alcohol Use Standard Drinks/Week Comments No 0 [...] on file Legal Sex Female 11:00 AM MAILING SPECIALIST Gender Identity Not on file Sexual Orientation Not on file documented as of this encounter Last Filed Vital Signs Vital Sign Reading Time Taken Comments Blood Pressure 116/64 08/17/2023 1:05 PM MAILING SPECIALIST Pulse 75 08/17/2023 1:05 PM MAILING SPECIALIST Temperature - - Respiratory Rate - - Oxygen Saturation 97% 08/17/2023 1:05 PM MAILING SPECIALIST Inhaled Oxygen Concentration - - Weight 62.1 kg (137 lb) 08/17/2023 1:05 PM MAILING SPECIALIST Height 177.8 cm (5' 10 ) 08/17/2023 1:05 PM MAILING SPECIALIST Body Mass Index 19.66 08/17/2023 1:05 PM MAILING SPECIALIST documented in this encounter Ordered Prescriptions Prescription Sig Dispense Quantity Refills Last Filled Start Date End Date dilTIAZem CD/XR/XT (dilTIAZem XR) 120 mg 24 hr capsule Take 1 capsule (120 mg total) by mouth daily 90 capsule 6 08/17/2023 documented in this encounter Progress Notes * Neil Bates MD - 08/17/2023 1:15 PM CST [facility] FOLLOW UP 08/17/2023 63 y.o. female with past medical history of atypical chest pain, recurrent dizziness, palpitations,headache; history of adenocarcinoma lung status post resection. She is former patient Dr. Epstein. Patient's nonischemic workup for chest pain has been negative in the past. Her echo showed preserved LV systolic function, dilated left atrium. Previous cardiac monitoring did not show any significant arrhythmias Patient's symptoms. She has had follow-ups with neurology as well. Patient reported that she was found to have pituitary mass on MRI in normal last year. She has beenfollowing up with endocrinology, neurology and neurosurgery at [facility]. In light of recurrent episodes of dizziness, patient had implantable cloth painter on 10/07/2015.No significant arrhythmias have been found at. On previous follow-up , she reported She lives with her 2 teenage sons. 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 Patient states that she does not have an AC in the house. Denies chest pain, shortness of breath, PND, orthopnea or lower extent he swelling. 12/05/2019 tele visit- This was a telemedicine visit with Yane K Fagan which took place via video conference. During the visit, I was located at my home and the tele visit was coordinated by my medical office technology instructor from our cardiology clinic at [facility], [address], [address], [place], [address]. . The patient was located at her home. The session started at 1110 and ended at 1129. Total time including review of the chart and documentation was 27 minutes. The patient has been informed that the visit may not be secure and acknowledged the information. I have explained the option of participating in a telephone or video visit during the COVID-19 public health emergency to the patient. After being given an opportunity to ask questions about and discussthis type of visit, the patient verbally consented to proceeding with the telephone / video visit. T he patient understands that this service replaces an office visit and they may be billed and/or responsible for any applicable copayments. Patient has not been able to follow-up regularly at our clinic due to what she described as insurance reasons. She has had episodes of chest discomfort, and her recent stress echocardiogram from lastyear was negative for ischemia. At that time, states that she went to [facility]. She has been experiencing frequent episodes of palpitations, multiple times a day, associated with occasional chest discomfort. She also has chest discomfort at other times as well, which are not necessarily related to exertion. Patient states that she had an episode of presyncope few months ago. She denies dyspnea on exertion. She drinks 1 cup of coffee every day, denies any excessive caffeinated beverages. Denies any excessive alcohol. Patient has history of implantable cloth painter without recent follow-up. 01/30/2020-on the follow-up visit today, patient reports recurrent episodes of palpitations which happen almost on a daily basis. Her palpitations last for about few seconds to minutes and associatedwith occasional dizziness without syncope. Patient does have longstanding history of palpitations. She has history of implantable cloth painter with depleted battery. Her recent 2 week event monitor showed sinus rhythm with episodes of atrial tachycardia. Previous monitor showed episode of SVT. Patient recently had PFTs done which showed moderate obstructive ventilatory defect. 05/21/2020-patient is here for the follow-up visit. She has been evaluated by electrophysiology. Her previous implantable cloth painter was explanted and anyone was reimplanted. She continues to have frequent palpitations, last for about 1 minutes each time, several times a week. She was apparently prescribed metoprolol, which patient was unable to tolerate due to symptoms of dizziness. She denies angina, although she has history of occasional chest discomfort which is nonexertional. She hasdyspnea on moderate to severe exertion. 08/18/2022-on the follow-up visit today, patient reports dyspnea on [id number]-hrixeiul exertion. She continues to have occasional palpitations with pleuritic chest discomfort, unable to give the frequency of the symptoms. She denies any dizziness or syncope. Patient follows up with pulmonology at [facility]. She has not followed up with electrophysiology since last office visit. Previously, she was unable to tolerate metoprolol due to generalized fatigue and dizziness. 08/17/2023-on the follow-up visit today, patient reports occasional, brief palpitations, usually atbedtime. No associated symptoms. No chest pain, shortness of breath, dizziness or syncope. REVIEW OF SYSTEMS General ROS: negative for - chills, fatigue, fever Psychological ROS: Positive for anxiety Ophthalmic ROS: negative for - loss of vision ENT ROS: negative for - epistaxis, headaches Allergy and Immunology ROS: negative for - hives Hematological and Lymphatic ROS: negative for - bleeding problems Endocrine ROS: negative for - hot flashes Respiratory ROS: negative for - cough, hemoptysis Cardiovascular ROS: Positive for occasional palpitations Gastrointestinal ROS: negative for - abdominal pain Musculoskeletal ROS: negative for - joint pain Neurological ROS: negative for - dizziness, gait disturbance Dermatological ROS: negative for rash HOME MEDICATIONS Allergies Allergen Reactions Adhesive Rash Adhesive Tape-Silicones Rash Amoxicillin Rash Carbamazepine Rash Reaction: Rash, , Codeine Hives and Rash Reaction: Hives, Skin Rash, , Doxycycline Other (See comments) and Rash Reaction: Pulmonary toxicity, , Penicillins Rash Procaine Rash Tree Nut Hives Amitriptyline Cigarette Smoke Unknown Coconut Coconut Oil Unknown Divalproex Gabapentin House Dust Hydrocodone Hydromorphone Latex Oxycodone Peanut Poison Amy Extract Pollens Extract Unknown Potassium Clavulanate Unknown Prochlorperazine Unknown Prochlorperazine Maleate Unknown Shellfish Containing Products Shellfish Derived Topiramate Valproic Acid Valproic Acid Analogues Lamotrigine Unknown and Other (See comments) Metoprolol Mental status changes, Dizziness and Other (See comments) Pt states that it made her feel terrible. Morphine Unknown and Other (See comments) Peanut Oil Vomiting Current Outpatient Medications Medication Sig Dispense Refill albuterol HFA (PROVENTIL HFA,VENTOLIN HFA,PROAIR HFA) 90 mcg/actuation inhaler Inhale 2 puffs every6 (six) hours as needed for wheezing 1 each 5 aspirin (ASPIR-81) 81 mg tablet take 1 tablet by oral route every day 0 0 fluticasone propion/salmeterol (ADVAIR HFA INHAL) Inhale 2 (two) times a day loratadine (CLARITIN) 10 mg tablet Take 1 tablet (10 mg total) by mouth daily 90 tablet 3 montelukast (SINGULAIR) 10 mg tablet Take 1 tablet (10 mg total) by mouth daily 90 tablet 0 mytgoqjbgoxx-iwnt-thrbi acid (Centrum) 18-400 mg-mcg tablet Take by mouth tiotropium (Spiriva with HandiHaler) 18 mcg per inhalation capsule Place 1 puff (1 capsule total) into inhaler and inhale daily 30 capsule 11 dilTIAZem CD/XR/XT (dilTIAZem XR) 120 mg 24 hr capsule Take 1 capsule (120 mg total) by mouth daily90 capsule 6 fluticasone propion-salmeteroL (Wixela Inhub) 500-50 mcg/dose diskus inhaler Inhale 1 puff 2 (two) times a day Rinse mouth with water after use. Do not swallow. (Patient not taking: Reported on 08/17/2023) 60 each 11 No current facility-administered medications for this visit. LABS AND OTHER DIAGNOSTIC TESTS Lab Results Component Value Date WBC 4.4 12/14/2019 HGB 13.2 12/14/2019 HCT 41.1 12/14/2019 MCV 89.3 12/14/2019 No lab exists for component: LABALBU Lab Results Component Value Date WBC 4.4 12/14/2019 HGB 13.2 12/14/2019 HCT 41.1 12/14/2019 MCV 89.3 12/14/2019 Chemistry Component Value Date/Time CO2 27 12/14/2019 1027 CREATININE 0.94 12/14/2019 1027 Component Value Date/Time CALCIUM 9.4 12/14/2019 1027 ALKPHOS 82 12/14/2019 1027 AST 11 12/14/2019 1027 ALT 9 12/14/2019 1027 BILITOT 0.4 12/14/2019 1027 Lab Results Component Value Date CHOL 174 10/26/2016 Lab Results Component Value Date HDL 74 10/26/2016 LDL Date Value Ref Range Status 10/26/2016 81 10 - 129 mg/dl Comment: Interpretive Data Optimal: < 100 mg/dL Near Optimal: 100 - 129 mg/dL Borderline High: 130 - 159 mg/dL High: 160 - 189 mg/dL Very high: > or = 190 mg/dL Literature Reference: See Cholesterol Current interpretive data was last revised on 2015. ] Lab Results Component Value Date TRIG 96 10/26/2016 ECHO/MUGA: Echo (EF greater than 55%, moderate left atrial enlargement, mild TR, trivial MR) - 04/12/2012 Echo (EF 55%, trivial MR, trivial TR) - 09/06/2012 Echo (Normal LV systolic function, wall thickness, and chamber size. Normal RV systolic functon andchamber size. Moderate LAE. Normal diastolic function. Mild TR, trace MR. Mild prolapse of MV. Dilated IVC. ([facility])) - 04/12/2012 ELECTROPHYSIOLOGY: Holter (No correlation with symptoms, Rare PACs, No correlation with symptoms) - 05/25/2012 EVR (Multiple complaints(over 15 episodes) of symptoms of irregular heartbeat, fast heart beat, andfluttering. All episodes demonstrated sinus rhythm without ectopy except for one episode of a 7 beat run of SVT) - 2012 STRESS TESTS: MPI (negative for ischemia, EF 58%) - 08/14/2014 CT/MRI: Head MRI (1.1 x 1.1 x 1 cm delayed enhancing lesion replacing the pituitary gland. 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 Overall morphology of the pituitary gland is unchanged. ) - 07/11/2015 Stress echo- Maximal Exercise Stress Echocardiogram, NEGATIVE for myocardial ischemia. 08/18/2018 [facility] PFT- moderate obstructive ventilatory defect. There is no impairment of alveolar gas exchange by DLCO . 11/15/2019 Lipids-total cholesterol 190, HDL 84, triglycerides less than 45, LDL 93. 01/30/2020 Two week event monitor- Underlying is sinus rhythm with symptoms corresponding with sinus rhythm, sinus tachycardia. Brief runs of atrial tachycardia without evidence of atrial fibrillation, atrial flutter, prolonged pauses or high-grade AV block. 12/14 to 12/28/2019 Dr. Killian Echo- Normal left ventricular size and wall thickness. Normal LV systolic and diastolic function. Ejection fraction is visually estimated at 60-65 %. Normal appearance of the mitral valve. Trivial regurgitation of the mitral valve. Normal appearance of the aortic valve. No stenosis. Mild pulmonary hypertension. Estimated peak RVSP 41 mmHg. Mild to moderate tricuspid regurgitation. Normal sinus rhythm. 02/21/2020 Lipids-total cholesterol 195, HDL 95, triglycerides 198, LDL 60, glucose 124. 08/18/2022 Echo- ormal left ventricular systolic function. No focal wall motion abnormalities. Normal left ventricular size. Normal left ventricular wall thickness. Normal left ventricular diastolic function. Ejection fraction is visually estimated at >70 %. Ejection fraction is measured at 77 %. Global Longitudinal Strain is -18 %. Normal right ventricular size. Normal right ventricular systolic function. There is mild enlargement of left atrium. Estimated peak RVSP is 33 mmHg. Mild tricuspid regurgitation.09/24/2022, Dr Nunn Lipids-total cholesterol 172, HDL?, triglycerides> 650, LDL? , glucose 87. 08/17/2023 PHYSICAL EXAM Vitals BP 116/64 (BP Location: Right arm, Patient Position: Sitting) Pulse 75 Ht 177.8 cm (5' 10 ) Wt 62.1 kg (137 lb) SpO2 97% BMI 19.66 kg/m?? Physical Examination: General appearance - alert, thin appearing female Mental status - anxious Eyes - extraocular eye movements intact Ears - external earsappear normal, hearing grossly normal Nose - patent nares Mouth - moist mucosa Neck - supple, no JVD Chest - clear to auscultation Heart - normal rate, regular rhythm, normal S1, S2, no murmurs Abdomen - soft, nontender Neurological - alert, oriented, normal speech Musculoskeletal - no joint tenderness Extremities - no pedal edema Skin - normal coloration, no rash on exposed area ASSESSMENT Clarisse Diagnoses and all orders for this visit: Palpitations (Primary) PAT (paroxysmal atrial tachycardia) PSVT (paroxysmal supraventricular tachycardia) Status post placement of implantable loop recorder Pulmonary hypertension (HCC) Lipid screening - Lipid panel; Future Other orders - dilTIAZem CD/XR/XT (dilTIAZem XR) 120 mg 24 hr capsule; Take 1 capsule (120 mg total) by mouth daily PLAN/RECOMMENDATIONS 63 y.o. female with past medical history of atypical chest pain, recurrent palpitations and dizziness, headache; history of adenocarcinoma lung status post resection. - patient has history of recurrent episodes of palpitations with recent improvement. Previous eventmonitor showed sinus rhythm with episodes of atrial tachycardia and episode of SVT. Patient has been evaluated by electrophysiology. Currently on low-dose diltiazem CD symptom relief. Continue to monitor her implantable cloth painter for any significant arrhythmias. Plan for explantation of device once battery is depleted. - previous noninvasive ischemic workup was negative for ischemia. Recent echo showed normal LV function. -follow-up with pulmonology for surveillance of CA lung. -point of care lipid screen appears to be erroneous. Repeat lipid panel as an outpatient. -cardiology follow-up in approximately to 18 months or sooner if needed. Neil Bates MD ING SPECIALIST documented in this encounter Miscellaneous Notes * Addendum Note - aKla Max CMA - 08/17/2023 1:15 PM CSTAddended by: KALA MAX on: 08/17/2023 03:04 PM Modules accepted: Orders ING SPECIALIST documented in this encounter Plan of Treatment Scheduled Orders Name Type Priority Associated Diagnoses Orde r Schedule Lipid panel Lab Routine Lipid screening Expected: 08/17/2023, Expires: 08/17/2024 documented as of this encounter Procedures Procedure Name Priority Date/Time Associated Diagnosis Comments POCT LIPID PANEL Routine 08/17/2023 3:02 PM MAILING SPECIALIST Palpitations documented in this encounter Results * POCT lipid panel (08/17/2023 3:02 PM MAILING SPECIALIST) Cholesterol, POC 172 mg/dL HDL, POC n/a mg/dL Triglycerides, POC 650 mg/dL LDL Cholesterol POC n/a mg/dL Chol/HDL Ratio, POC n/a Non-HDL Cholesterol, POC n/a mg/dL Cholesterol Total, POC 172 mg/dL Capillary blood 08/17/2023 3 :02 PM MAILING SPECIALIST us Neil Bates MD POINT OF CARE TEST ORDERABLES Fi nal Result documented in this encounter Visit Diagnoses Diagnosis Palpitations- Primary PAT (paroxysmal atrial tachycardia) (HCC) Paroxysmal supraventricular tachycardia PSVT (paroxysmal supraventricular tachycardia) (HCC) Paroxysmal supraventricular tachycardia Status post placement of implantable loop recorder Pulmonary hypertension (HCC) Other chronic pulmonary heart diseases Lipid screening Screening for lipoid disorders documented in this encounter Discontinued Medications Medication Sig Discontinue Reason Start Date End Da te dilTIAZem XR 120 mg 24 hr capsule TAKE 1 CAPSULE BY MOUTH EVERY DAY 02/09/2023 08/17/2023 documented as of this encounter Care Teams Material Handler 1St Shift Relationship Specialty Start Date End Date Michael Sherman MD [address] [place] [address] PCP - General 01/28/17 Neil Bates MD [address] [address] Consulting Physician Cardiology 03/17/20 documented as of this encounter
--- OUTSIDE RECORDS SUMMARY | 2024-08-24 04:33 | XMS_ITS | Encounter Summary ---
Author Organization [facility] Healthcare Address [address] [place] [address] Care Team Providers Care Manager Fitness Name Role Phone Michael Sherman MD Primary Care Prov ider Neil Bates MD Unavailable Reason for Visit * Cardiology (Routine) - Closed Specialty Diagnoses / Procedures Referred By Contac t Referred To Contact Diagnoses Palpitations PAT (paroxysmal atrial tachycardia) ([facility]) Procedures DEVICE CHECK - REMOTE Neil Bates MD [address] [place] [id number] Phone: tel: fax: [facility] Referral ID Status Reason Start Date Expiration Date Visits Re quested Visits Authorized [id number] Closed 01/31/2023 08/02/2024 1 1 Encounter Details Date Type Department Care Team (Latest Contact Info) Description 07/25/2023 7:45 AM PACKAGING ASSOCIATE Ancillary Procedure [facility] Cardiology [address] [place] [phone] Status post placement of implantable loop recorder (Primary Dx); Palpitations; PAT (paroxysmal atrial tachycardia) Social History Tobacco Use Types Packs/Day Years [...] on file Legal Sex Female 11:00 AM 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 ASSOCIATE Gender Identity Not on file Sexual Orientation Not on file documented as of this encounter Plan of Treatment Not on file documented as of this encounter Procedures Procedure Name Priority Date/Time Associated Diagnosis Comments DEVICE CHECK - REMOTE Routine 07/25/2023 3:57 PM PACKAGING ASSOCIATE Palpitations PAT (paroxysmal atrial tachycardia) documented in this encounter Results * DEVICE CHECK - REMOTE (07/25/2023 3:57 PM PACKAGING ASSOCIATE) Anatomical Region Laterality Modality Other Narrative 07/28/2023 2:45 PM PACKAGING ASSOCIATE [employer] LINQ Loop Recorder implanted 17-Mar-2020 for AF Management. Routine ILR remote. Normal device function. Battery function: OK Anti-coagulant(s): ??ASA Anti-arrhythmic(s): Diltiazem Presenting rhythm: VS at 76 bpm Events: ??Since last check on 13-Jun-2023, no events Lifetime AF burden: 0 % Plan: ??Continue remote monitoring FLORES Monterroso Device Specialist us Neil Bates MD [facility] CARDIAC SERVICES PROCEDURES F inal Result documented in this encounter Visit Diagnoses Diagnosis Status post placement of implantable loop recorder- Primary Palpitations PAT (paroxysmal atrial tachycardia) (HCC) Paroxysmal supraventricular tachycardia documented in this encounter Care Teams Manager Fitness Relationship Specialty Start Date End Date Michael Sherman MD [address] [place] [address] PCP - General 01/28/17 Neil Bates MD [address] [facility] [address] [place] [address] Consulting Physician Cardiology 03/17/20 documented as of this encounter
--- OUTSIDE RECORDS SUMMARY | 2024-08-24 04:33 | XMS_ITS | Clinical Summary ---
Author Organization [facility] Address [address] [place] [address] Care Team Providers Care Clothing And Textiles Teacher Name Role Phone Michael Sherman MD Primary Care Prov ider Neil Bates MD Unavailable Allergies Active Allergy Reactions Criticality Noted Date Comments Adhesive Rash Medium Adhesive Tape-Silicones Rash Medium 09/24/2020 Amitriptyline Amoxicillin Rash Medium Carbamazepine Rash Medium 09/24/2020 Reaction: Rash, , Cigarette Smoke Unknown Coconut Coconut Oil Unknown Codeine Hives,Rash Medium 09/24/2020 Reaction: Hives, Skin Rash, , Divalproex Doxycycline Other (See comments),Rash Medium 09/24/2020 Reaction: Pulmonary toxicity, , Gabapentin House Dust Hydrocodone Hydromorphone Lamotrigine Unknown,Other (See comments) Low 09/24/2020 Latex Metoprolol Mental status changes,Dizziness, Other (See comments) Low 08/21/2020 Pt states that it made her feel terrible. Morphine Unknown,Other (See comments) Low 05/26/2012 Oxycodone Peanut Peanut Oil Vomiting Low Penicillins Rash Medium 09/24/2020 Poison Amy Extract Pollens Extract Unknown Potassium Clavulanate Unknown 10/15/2011 Procaine Rash Medium Prochlorperazine Unknown Prochlorperazine Maleate Unknown 09/10/2013 Shellfish Containing Products Shellfish Derived Topiramate Tree Nut Hives Medium Valproic Acid Valproic Acid Analogues Medications aspirin (ASPIR-81) 81 mg tablet take 1 tablet by oral route every day 0 0 12/11/2015 Active multivitamin-ir on-folic acid (Centrum) 18-400 mg-mcg tablet Take by mouth Active dilTIAZem CD/XR/XT (dilTIAZem XR) 120 mg 24 hr capsule Take 1 capsule (120 mg total) by mouth daily 90 capsule 6 08/17/2023 Active tiotropium (Spiriva with HandiHaler) 18 mcg per inhalation capsule Place 1 puff (1 capsule total) into inhaler and inhale daily 30 capsule 11 04/03/2024 04/03/20 25 Active inhalational spacing device (Aerochamber MV) spacer Inhale 1 Units daily 1 each 2 04/03/2024 Active loratadine (CLARITIN) 10 mg tablet Take 1 tablet (10 mg total) by mouth daily 90 tablet 3 04/09/2024 04/09/20 25 Active montelukast (SINGULAIR) 10 mg tablet Take 1 tablet (10 mg total) by mouth daily 90 tablet 3 06/01/2024 05/27/20 25 Active fluticasone propion-salmete roL (Advair HFA) 230-21 mcg/actuation inhalerIndicati ons:Bronchospas m Prevention with COPD,Maintenanc e Therapy for Asthma Inhale 2 puffs 2 (two) times a day Rinse mouth with water after use. Do not swallow. 1 each 11 06/29/2024 Active albuterol HFA (PROVENTIL HFA,VENTOLIN HFA,PROAIR HFA) 90 mcg/actuation inhaler Inhale 2 puffs every 6 (six) hours as needed for wheezing 1 each 5 07/19/2024 07/19/20 25 Active Active Problems Problem Noted Date Diagnosed Date Allergic rhinitis 09/01/2020 Palpitations 02/27/2020 Overview (02/27/2020): Added automatically from request for surgery [id number] PSVT (paroxysmal supraventricular tachycardia) 0 02/27/2020 Overview (02/27/2020): Added automatically from request for surgery [id number] Status post placement of implantable loop record er 02/09/2018 Overview (03/17/2020): Medtronic LINQ ILR implanted for Palpitations/PAT on 03/17/2020. Nany ([place]) Jana (Card - follows) - [facility] Menopause present 07/18/2017 Moderate persistent asthma 04/07/2017 Dizzy spells 02/02/2016 Overview (11/25/2017): Description: Normal vEEG in 2014 including normal interictal EEG, yet 2011 with reported L temporal sharps at [facility]. MRI with pituitary adenoma, stable. Impression: Continues to have her two type of spells, which have been caught on video EEG though to a milder degree. Currently undertaking implantable loop recorder for palpitations during these. Will continue to monitor for now pending cardiology opinion. Consider further vEEG in future if frequency increases/symptoms change. Chronic migraine without aura 10/01/2015 Overview (11/18/2016): Chronic migraine without aura Partial seizure with impaired consciousness 09/15 Overview (11/18/2016): Partial seizure with impaired consciousness Pituitary adenoma 09/12/2015 Numbness of tongue 09/09/2015 Migraine without aura and responsive to treatmen t 08/20/2015 Overview (11/25/2017): Description: Chronic headaches, every day. Vary in intensity, but moderate to severe. Bifrontal throbbing, with sharp headaches. Nausea/vomiting, mild phono/photophonia, worse with activity. Tried CBZ/LTG/amitriptyline/VPA in past with no effect/side effect. Impression: Continues with daily migraine headaches with severe headaches >15 days per months. Options for migraine ppx in future include: venlafaxine/metoprolol/lisinopril/LEV/namenda. BP 110/60 so would avoid cardioactive for now, especially while undergoing cardiac workup. Advised sleep/MCKOY hygiene and MCKOY diary. Start venlafaxine for now. Drusen of macula 07/31/2015 Dim vision 07/31/2015 Vitreous syneresis 07/31/2015 Lenticular sclerosis 07/31/2015 Pre-syncope 06/25/2015 Pituitary gland enlarged 06/25/2015 Dizziness 05/14/2015 Overview (11/18/2016): Dizziness Anxiety 05/14/2015 Overview (11/18/2016): Anxiety History of malignant neoplasm 05/14/2015 Overview (11/18/2016): History of lung cancer Consciousness and/or awareness finding 5 Overview (11/18/2016): Consciousness and/or awareness finding Obstructive sleep apnea syndrome 05/01/2013 Overview (11/18/2016): Obstructive sleep apnea Seizure 10/31/2012 Overview (11/18/2016): Seizure / Convulsions Headache 10/31/2012 Overview (11/18/2016): Headache Mitral valve disease 04/12/2012 Non-small cell carcinoma of lung 01/23/2010 Malignant neoplasm of lower respiratory tract Dysphonia 01/15/2010 Asthma-COPD overlap syndrome Encounters Date Type Department Care Team Description 08/23/2024 Telephone [facility] Pulmonary [address] [facility] Advanced Medicine [address]th [place] [address] [place] [address] Martínez Wilcox RN 06/29/2024 Orders Only [facility] [address] [facility] Advanced Medicine [address]th [place] [address] [place] [address] Bi Ware MD from Last 3 Months Immunizations Name Administration Dates Next Due Influenza, Trivalent, Preservative Free, Intramu scular 06/15/2016,05/15/2015 Influenza, Unspecified 05/15/2019 Surgical History Surgery Date Site/Laterality Comments OTHER SURGICAL HISTORY VATS wtih R lobectomy SECTION section TONSILLECTOMY Tonsillectomy LUMBAR PUNCTURE WO INJECTION , DIAGNOSTIC 01/12/2013 N/A SECTION 1990 1996 1999 Medical History Medical History Date Comments Hx Other Medical NSCLC 1a- adeno carcinoma Hx Other Medical palpitations Hx Other Medical 2012 Small lacunar i nfarct- basal ganglia Hx Other Medical hx gestational diabetes Cerebrovascular accident (CV A) (HCC) Stroke Hx Other Medical chronic bronchi tis Depression Depression Asthma Asthma Cancer of lung (HCC) Cancer, sonia g Seizure disorder (CMS/HCC) (HCC) Seizure disorder Hx Other Medical ENCEPHALITIS Hx Other Medical seizure disorde r; Comments: [facility] 10/10/2014 - Asthma Asthma; Comments : [facility] 10/10/2014 - Hx Other Medical encephalitis; C omments: [facility] 10/10/2014 - Hx Other Medical 2010 lung cancer merlin jimmy; Comments: [facility] 10/10/2014 - Hx Other Medical scoliosis; Comm ents: [facility] 10/10/2014 - Hx Other Medical carpal tunnel; Comments: [facility] 10/10/2014 - Hx Other Medical headaches; Comm ents: [facility] 10/10/2014 - Hx Other Medical neuropathy; Com ments: [facility] 10/10/2014 - Hx Other Medical 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 Clotting disorder (CMS/HCC) (HCC) 1962 Brain concussion Multiple .....Last N ov 2018 Chronic bronchitis (HCC) 2010 Emphysema of lung (HCC) 2016 Migraines 2009 Neuromuscular disorder (HCC) 2010 Thyroid disease 1970 Peptic ulceration 1970 Family History Medical History Relation Name Comments Asthma Daughter Olegario Fagan Depression Daughter Olegario Fagan Obesity Daughter Olegario Fagan Rashes / Skin problems Daughter Olegario Fagan Cancer Father Kayden Dennis Diabetes Father Kayden Dennis Diabetes melli tus; /Diabetes Mellitus - (Added by TW Conv) Hypertension Father Kayden Stone Liver cancer Father Kayden Dennis Cancer, liver; Cause of : Cancer, liver Lung cancer Father Kayden Dennis Family history of lung cancer - (Added by TW Conv) Obesity Father Kayden Stone Prostate cancer Father Kayden Dennis Cancer, pro state; Cause of : Cancer, prostate/Prostate Cancer - (Added by TW Conv) Vision loss Father Kayden Dennis COPD Maternal Grandfather Landers [place] Cancer Maternal Grandfather Landers Jeromy Emphysema Maternal Grandfather [place] Emphyse ma, compensatory - Relation: Grandfather (Added by TW Conv) Heart disease Maternal Grandfather [place]ers [place] Family history of cardiac disorder - Relation: Grandfather (Added by TW Conv) Lung cancer Maternal Grandfather Lonnie Jeroym Family history of lung cancer - Relation: Grandfather (Added by TW Conv) Arthritis Maternal Grandmother Patricia Bushk ill Jeromy Hypertension Maternal Grandmother Patricia Bushk ill [place] Memory loss Maternal Grandmother Patricia Bushk ill [place] Vision loss Maternal Grandmother Patricia [place] ill [place] Heart failure Maternal Great-Grandfather Family history of congestive heart failure - (Added by TW Conv) Allergy (severe) Mother Miriam Stone Arthritis Mother Miriam Stone arthritis; Asthma Mother Miriam Stone COPD Mother Miriam Stone Clotting disorder Mother Miriam Stone Other Mother Miriam Stone chronic bronchi tis; Arthritis Mother's Brother Leander Jeromy Heart disease Mother's Brother Leander Jeromy Arthritis Mother's Sister Holley Jeromy Chorney Cancer Mother's Sister Holley Jeromy Chorney Heart disease Mother's Sister Holley Dengp Chorney Diabetes Other 1 Family history of Diabetes mellitus; Asthma Other 2 Family history of Asthma; Hypertension Other 3 Family history of Hypertension; Other Other 4 Family history of Bleeding tendencies; Osteoarthritis Other 5 Family histor y of Osteoarthritis; Cancer Other 6 Family history of Cancer; Stroke Other 7 Family history of Stroke; Heart disease Other 8 Family history of cardiac disorder - (Added by TW Conv) Hypertension Other 9 Family history of hypertension - Relation: Grandmother (Added by TW Conv) Cancer Paternal Grandfather Kristopher Dennis Diabetes Paternal Grandfather Kristopher Dennis Alzheimer's disease Paternal Grandmother [place] Dana Greer Neuropathy Sister 1 Neuropathy; Cancer Sister 2 Karolyn Stone Yogi Depression Son 1 Nikolai Fagan Obesity Son 1 Nikolai Fagan Rashes / Skin problems Son 1 Nikolai Fagan Vision loss Son 1 Nikolai Fagan Depression Son 2 Neftali Fagan Relation Name Status Comments Daughter Olegario Fagan Father Kayden Dennis Maternal Grandfather Lonnie Wake Maternal Grandmother Patricia [place] Jeromy Maternal Great-Grandfather Mother Miriam Stone Mother's Brother Leander Jeromy Mother's Sister Holley Dengp Chorney Other 1 Other 2 Other 3 Other 4 Other 5 Other 6 Other 7 Other 8 Other 9 Paternal Grandfather Kristopher Dennis Paternal Grandmother [place] Barrera Greer Sister 1 Sister 2 Karolyn Stone Yogi Son 1 Nikolai Fagan Son 2 Neftali Fagan Social History Tobacco Use Types Packs/Day Years [...] on file Legal Sex Female 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 Gender Identity Not on file Sexual Orientation Not on file Obstetrics History Last Filed Vital Signs Vital Sign Reading Time Taken Comments Blood Pressure 119/74 04/03/2024 3:24 PM CDT Pulse 66 04/03/2024 3:24 PM CDT Temperature 36.7 ??C (98 ??F) 04/03/2024 3:24 PM CDT Respiratory Rate 16 04/03/2024 3:24 PM CDT Oxygen Saturation 100% 04/03/2024 3:24 PM CDT Inhaled Oxygen Concentration - - Weight 63.6 kg (140 lb 3.2 oz) 04/03/2024 3:24 P M CDT Height 177.8 cm (5' 10 ) 04/03/2024 3:24 PM CDT Body Mass Index 20.12 04/03/2024 3:24 PM CDT Plan of Treatment Health Maintenance Due Date Last Done Comments Breast Cancer Screening-Mammogram 1960 Cervical Cancer Screening 1960 Colon Cancer Screening-Colonoscopy 1960 Depression Screening 1960 Hepatitis C Screening 1960 Pneumococcal vaccine <65 (1 of 2 - PCV) 1966 Hepatitis B Screening 1978 Regular Well Visit/Exam 18-64 1978 Zoster Vaccine (1 of 2) 2010 Influenza Vaccine (#1) 2024 0, 06/17/2020, 05/15/2019, Additional history exists DTaP/Tdap/Td Vaccine (2 - Td or Tdap) 01/13/2026 01/14/2016 Medical Devices Implanted Type Area Medical Billing Specialist Device Identifier Shelf Expiration Date Model / Serial / Lot Medtronic Cardiac Rhythm Mgmt Linqsys Reveal Linq Mycarelink Insertable Loop Recorder Automatic - [id number] - [id number] Implanted:Qty : 1 on 03/17/2020 by Luca Ayon MD at [facility] Implantable Loop Recorder Medtronic Inc [id number] 06/28/2020 LINQSYS / [id number] S / D Medtronic Reveal Linq Loop Recorder-10/07 Implanted: (Quantity not on file) Heart Insurance [facility] Care Teams Clothing And Textiles Teacher Relationship Specialty Start Date End Date Michael Sherman MD [address] [place] [address] PCP - General 01/28/17 Neil Bates MD [address] [address] Consulting Physician Cardiology 03/17/20
--- OUTSIDE RECORDS SUMMARY | 2024-08-24 04:33 | XMS_ITS | Encounter Summary ---
Author Organization [facility] Address [address] [place] [address] Care Team Providers Care Photo Intern Name Role Phone Michael Sherman MD Primary Care Prov ider Neil Bates MD Unavailable Encounter Details Date Type Department Care Team (Late st Contact Info) Description 04/03/2024 4:50 PM CDT Lab [facility] Advanced Medicine 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 Gender Identity Not on file Sexual Orientation Not on file documented as of this encounter Plan of Treatment Not on file documented as of this encounter Procedures Procedure Name Priority Date/Time Associated Diagnosis Comments DIFFERENTIAL AUTO Routine 04/03/2024 4:3 5 PM CDT Iron deficiency anemia, unspecified iron deficiency anemia type IRON PROFILE W/ IBC Routine 04/03/2024 4 :35 PM CDT Iron deficiency anemia, unspecified iron deficiency anemia type CBC WITH AUTO DIFFERENTIAL Routine 04/03/2024 4:35 PM CDT Iron deficiency anemia, unspecified iron deficiency anemia type FERRITIN Routine 04/03/2024 4:35 PM CDT Iron deficiency anemia, unspecified iron deficiency anemia type documented in this encounter Results * Differential, auto (04/03/2024 4:35 PM CDT) Neutrophil abs 4.8 1.5 - 6.5 K/cumm Imm gran abs 0.1 0.0 - 0.1 K/cumm [facility] Lymphocyte abs 1.6 0.8 - 3.3 K/cumm [facility] Monocyte abs 0.7 0.2 - 0.8 K/cumm [facility] Eosinophil abs 0.3 0.0 - 0.5 K/cumm [facility] Basophil abs 0.1 0.0 - 0.1 K/cumm [facility] Neutrophil pct 63.4 % [facility] Comment: Interpretive Data Percent cell count reference ranges are not reported, since discordance with absolute values may lead to misinterpretation of CBC data. Current Interpretive Data was last revised on 2017. Imm gran pct 0.7 % [facility] Comment: Interpretive Data Percent cell count reference ranges are not reported, since discordance with absolute values may lead to misinterpretation of CBC data. Current Interpretive Data was last revised on 2017. Lymphocyte pct 21.3 % [facility] Comment: Interpretive Data Percent cell count reference ranges are not reported, since discordance with absolute values may lead to misinterpretation of CBC data. Current Interpretive Data was last revised on 2017. Monocyte pct 9.3 % [facility] Comment: Interpretive Data Percent cell count reference ranges are not reported, since discordance with absolute values may lead to misinterpretation of CBC data. Current Interpretive Data was last revised on 2017. Eosinophil pct 3.7 % [facility] Comment: Interpretive Data Percent cell count reference ranges are not reported, since discordance with absolute values may lead to misinterpretation of CBC data. Current Interpretive Data was last revised on 2017. Basophil pct 1.6 % [facility] Comment: Interpretive Data Percent cell count reference ranges are not reported, since discordance with absolute values may lead to misinterpretation of CBC data. Current Interpretive Data was last revised on 2017. Blood 04/03/2024 4:35 PM CDT 04/03/2024 5:07 PM CDT Bi Ware MD LAB BLOOD ORDERABLES Final Result [facility] Department [place] [address] * (ABNORMAL) CBC with auto differential (04/03/2024 4:35 PM CDT) WBC 7.5 3.8 - 9.9 K/cumm Hgb 10.2(L) 11.9 - 15.5 g/dL [facility] Hct 33.9(L) 35.6 - 45.5 % [facility] Plt 276 150 - 400 K/cumm [facility] MPV 9.3 9.1 - 12.3 fL [facility] RBC 4.04 3.90 - 5.20 M/cumm [facility] MCV 83.9 81.3 - 96.4 fL [facility] MCH 25.2(L) 27.1 - 33.3 pg [facility] MCHC 30.1(L) 32.3 - 35.7 g/dL [facility] RDW CV 15.2(H) 11.1 - 14.9 % [facility] RDW SD 46.3 35.7 - 48.1 fL [facility] NRBC abs 0.00 0.00 - 0.01 K/cumm [facility] Blood 04/03/2024 4:35 PM CDT 04/03/2024 5:07 PM CDT us Bi Ware MD LAB BLOOD ORDERABLES Final Result Performing Organization Address [facility] Co de Phone Number [facility] [place] [address] * Ferritin (04/03/2024 4:35 PM CDT) Ferritin 14 13 - 150 ng/mL Blood 04/03/2024 4:35 PM CDT 04/03/2024 5:07 PM CDT Bi Ware MD LAB BLOOD ORDERABLES Final Result Performing Organization Address [facility] [place] [address] * (ABNORMAL) Iron profile w/ IBC (04/03/2024 4:35 PM CDT) Iron 36 35 - 145 mcg/dL TIBC 382 250 - 400 mcg/dL [facility] Transferrin saturation 9(L) 20 - 50 % [facility] Blood 04/03/2024 4:35 PM CDT 04/03/2024 5:07 PM CDT Bi Ware MD LAB BLOOD ORDERABLES Final Result Performing Organization Address [facility] [place] [address] documented in this encounter Visit Diagnoses Diagnosis Iron deficiency anemia, unspecified iron deficiency anemia type documented in this encounter Care Teams Photo Intern Relationship Specialty Start Date End Date Michael Sherman MD [address] [place] [id number] PCP - General 01/28/17 Neil Bates MD [address] [place] [id number] Consulting Physician Cardiology 03/17/20 documented as of this encounter
--- OUTSIDE RECORDS SUMMARY | 2024-08-24 04:33 | XMS_ITS | Encounter Summary ---
Author Organization [facility] Address [address] [address] Care Team Providers Care Lapel Padder Blindstitch Name Role Phone Michael Sherman MD Primary Care Prov ider Neil Bates MD Unavailable Reason for Visit * Cardiology (Routine) - Closed Specialty Diagnoses / Procedures Referred By Contac t Referred To Contact Diagnoses Palpitations PAT (paroxysmal atrial tachycardia) (HCC) Procedures DEVICE CHECK - REMOTE Neil Bates MD [address] [place] [address] Phone: tel: fax: [facility] Referral ID Status Reason Start Date Expiration Date Visits Re quested Visits Authorized [id number] Closed 09/28/2022 03/28/2024 1 1 Encounter Details Date Type Department Care Team (Latest Contact Info) Description 05/02/2023 7:30 AM CDT Ancillary Procedure 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 Routine ILR remote. Normal device function. Battery function: OK Anti-coagulant(s): ??ASA Anti-arrhythmic(s): Diltiazem Presenting rhythm: VS at 76 bpm Events: ??Since last check on 21-Mar-2023 --0 Sx (total: 17) --1 Tachy (total: 3): ECG shows 1 minutes 34 seconds of AT at a max V rate of 162 bpm. Lifetime AF burden: 0 % Plan: ??Continue remote monitoring FLORES Monterroso Device Specialist us Neil Bates MD [facility] CARDIAC SERVICES PROCEDURES F inal Result documented in this encounter Visit Diagnoses Diagnosis Palpitations PAT (paroxysmal atrial tachycardia) (HCC) Paroxysmal supraventricular tachycardia documented in this encounter Care Teams Lapel Padder Blindstitch Relationship Specialty Start Date End Date Michael Sherman MD [address] [place] [address] PCP - General 01/28/17 Neil Bates MD [address] [facility] [address] [place] [address] Consulting Physician Cardiology 03/17/20 documented as of this encounter
--- OUTSIDE RECORDS SUMMARY | 2024-08-24 04:33 | XMS_ITS | Referral Summary ---
Author Organization [facility] Address [address] [place] [address] Care Team Providers Care Director Custom Name Role Phone Michael Sherman MD Primary Care Prov ider Neil Bates MD Unavailable Encounters Date Type Department Care Team Description 08/23/2024 Telephone [facility] Pulmonary [address] [facility] Advanced Medicine [address]th [place] [address] [place] [address] Martínez Wilcox RN 06/29/2024 Orders Only [facility] Pulmonary [address] [facility] Medicine 8th [place] [address] [place] [address] Bi Ware MD from Last 3 Months Allergies Active Allergy Reactions Criticality Noted Date [...] (02/27/2020): Added automatically from request for surgery [id number] PSVT (paroxysmal supraventricular tachycardia) 0 02/27/2020 Overview (02/27/2020): Added automatically from request for surgery [id number] Status post placement of implantable loop record er 02/09/2018 Overview (03/17/2020): Medtronic LINQ ILR implanted for Palpitations/PAT on 03/17/2020. 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 Gender Identity Not on file Sexual Orientation [...] 04/03/2024 3:24 PM CDT Plan of Treatment Not on file Medical Devices Implanted Type Area Data Visualization Developer Device Identifier Shelf Expiration Date Model / Serial / Lot Medtronic Cardiac Rhythm Mgmt Linqsys Reveal Linq Mycarelink Insertable Loop Recorder Automatic - [id number] - [id number] Implanted:Qty : 1 on 03/17/2020 by Luca Ayon MD at [facility] Implantable Loop Recorder Med[employer]onic Inc [id number] 06/28/2020 LINQSYS / [id number] S / D Medtronic Reveal Linq Loop Recorder-10/07 Implanted: (Quantity not on file) Heart Insurance [facility] Care Teams Director Custom Relationship Specialty Start Date End Date Michael Sherman MD [address] [place] [address] PCP - General 01/28/17 Neil Bates MD [address] [address] Consulting Physician Cardiology 03/17/20
--- OUTSIDE RECORDS SUMMARY | 2024-08-24 04:33 | XMS_ITS | Encounter Summary ---
Author Organization [facility] Healthcare Address [address] [place] [address] Care Team Providers Care It Desktop Support Specialist Name Role Phone Michael Sherman MD Primary Care Prov ider Neil Bates MD Unavailable Reason for Visit * Cardiology (Routine) - Closed Specialty Diagnoses / Procedures Referred By Contac t Referred To Contact Diagnoses Palpitations PAT (paroxysmal atrial tachycardia) (HCC) Procedures DEVICE CHECK - REMOTE Neil Bates MD [address] [place] [address] Phone: tel: fax: [facility] Medical Group Referral ID Status Reason Start Date Expiration Date Visits Re quested Visits Authorized [id number] Closed 01/31/2023 08/02/2024 1 1 Encounter Details Date Type Department Care Team (Latest Contact Info) Description 06/13/2023 7:45 AM CDT Ancillary Procedure [facility] Medical Group Cardiology [address] [place] [phone] Status post placement of implantable loop [...] on file 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 Patient had a routine [facility] remote transmission of their implantable loop recorder on 06/13/2023. Medications: ??ASA, Diltiazem. Interrogation of the patients device demonstrates that the Linq is functioning appropriately ?? (0) Symptom events (0) Device detected events of bradycardia, Tachycardia, Pause, or AT/AF Presenting Rhythm: Sinus rhythm @ 60 bpm Battery: Good Plan: 1) Routine Remote with no new event. 2) Continue to monitor remotely. [facility] Director Marketing Analytics us Neil Bates MD [facility] PROCEDURES F inal Result documented in this encounter Visit Diagnoses Diagnosis Status post placement of implantable loop recorder- Primary Palpitations PAT (paroxysmal atrial tachycardia) (HCC) Paroxysmal supraventricular tachycardia documented in this encounter Care Teams It Desktop Support Specialist Relationship Specialty Start Date End Date Michael Sherman MD [address] [place] [address] PCP - General 01/28/17 Neil Bates MD [address] [facility] [address] [place] [address] Consulting Physician Cardiology 03/17/20 documented as of this encounter
--- OUTSIDE RECORDS SUMMARY | 2024-08-24 04:33 | XMS_ITS | Encounter Summary ---
Author Organization [facility] Address [address] [place] [address] Phone Care Team Providers Care Electronic Warfare Technical Name Role Phone Michael Sherman MD Primary Care Prov ider Neil Bates MD Unavailable Encounter Details Date Type Department Care Team (Late st Contact Info) Description 06/29/2024 Orders Only [facility] Pulmonary [address] [facility] Advanced Medicine 8th [place] [address] [place] [address] Bi Ware MD [address] [address] [place] [address] Social History Tobacco Use Types Packs/Day Years [...] on file 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 Do not swallow. 1 each 11 06/29/2024 documented in this encounter Progress Notes * Allison Howard CMA - 06/29/2024 9:11 AM CST Advair refilled per pts request. AG ELASTIC ATTACHER documented in this encounter Plan of Treatment Not on file documented as of this encounter Visit Diagnoses Not on filedocumented in this encounter Discontinued Medications Medication Sig Discontinue Reason Start Date End Da te fluticasone propion-salmeteroL (Advair HFA) 230-21 mcg/actuation inhalerIndications:Bronc hospasm Prevention with COPD,Maintenance Therapy for Asthma Inhale 2 puffs 2 (two) times a day Rinse mouth with water after use. Do not swallow. Reorder 04/03/2024 06/29/2024 documented as of this encounter Care Teams Electronic Warfare Technical Relationship Specialty Start Date End Date Michael Sherman MD [address] [place] [address] PCP - General 01/28/17 Neil Bates MD [address] [place] [id number] Consulting Physician Cardiology 03/17/20 documented as of this encounter
--- OUTSIDE RECORDS SUMMARY | 2024-08-24 04:33 | XMS_ITS | Continuity of Care Document ---
Author Organization [facility] Address [address] [facility] [address] [place] [address] Phone Care Team Providers Care Hoseman Name Role Phone Abdifatah Valadez DO Unavailable Unavailable Advance Directives Directive Yes / No Effective Date File Name No Information Encounters Encounter Description Practice Location Reason(s) For Visit Diagnoses Date Provider Providers Copied on Encounter [facility], [address], [place], [place], [id number], [place] tel:[phone] [facility] No Information Allyson Barrett. [address] [facility], [place], [address], [place]. tel: [phone] Family History Family Member Type Diagnosis Age At Onset No Information Payers Payer name Insurance type Covered libertarian ID Authoriza tion(s) BCBS [place] Commercial [id number] Social History Type Description Quantity Date Captured Comments Sex Female Smoking Status No Information Chief Complaint And Reason For Visit No Information Reason For Referral Reason For Referral No Information History Of Present Illness Encounter Date Complaint History Of Prese nt Illness No Information Functional Status Date Functional Assessmen t No Information Instructions Date Instruction Additional Infor mation No Information Assessments Type Assessment Date No Information Patient Care Teams Name Effective Dates (start - stop) Status Members No Information
--- OUTSIDE RECORDS SUMMARY | 2024-08-24 04:33 | XMS_ITS | Encounter Summary ---
Author Organization [facility] Address [address] [facility] [address] [place] [address] Phone Care Team Providers Care Pipe Bowls Paint Trimmer Name Role Phone Michael Sherman MD Primary Care Prov ider Neil Bates MD Unavailable Encounter Details Date Type Department Care Team (Late st Contact Info) Description 12/13/2023 Telephone [facility] Pulmonary [address] [facility] Medicine 8th [place] [address] [place] [address] Stefanie Bennett CMA Social History Tobacco Use Types Packs/Day Years [...] on file 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 ----- Message ----- From: Martínez Wilcox RN Sent: 12/12/2023 2:24 PM CDT To: [facility] [address] Sched Hub Pool Subject: schedule Ware appt on 04/03/24 at 2:30PM wit# Please schedule Ware appt on 04/03/24 at 2:30PM with amaury. Thank you documented in this encounter Plan of Treatment Not on file documented as of this encounter Visit Diagnoses Not on filedocumented in this encounter Care Teams Pipe Bowls Paint Trimmer Relationship Specialty Start Date End Date Michael Sherman MD [address] [place] [address] PCP - General 01/28/17 Neil Bates MD [address] [address] Consulting Physician Cardiology 03/17/20 documented as of this encounter
--- OUTSIDE RECORDS SUMMARY | 2024-08-24 04:33 | XMS_ITS | Encounter Summary ---
Author Organization 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 PA sent on CoverMyMeds. MILLAN: [id number] documented in this encounter Plan of Treatment Not on file documented as of this encounter Visit Diagnoses Not on filedocumented in this encounter Care Teams Personnel Clerk Relationship Specialty Start Date End Date Michael Sherman MD [address] [place] [address] PCP - General 01/28/17 Neil Bates MD [address] [address] Consulting Physician Cardiology 03/17/20 documented as of this encounter
--- OUTSIDE RECORDS SUMMARY | 2024-08-24 04:33 | XMS_ITS | Encounter Summary ---
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 Dr Bates's note from 08/17/2023 - patient has history of recurrent episodes of palpitations with recent improvement. Previous event monitor showed sinus rhythm with episodes of atrial tachycardia and episode of SVT. Patient has been evaluated by electrophysiology. Currently on low-dose diltiazem CD symptom relief. Continue to monitor her implantable telemetry monitor for any significant arrhythmias.Plan for explantation of device once battery is depleted. There is nothing different to address. I would say if patient wants a different course of action then she would need to schedule an appointment to discuss with Dr Bates. RNATIONAL FIRST OFFICER * Telephone Encounter - Kera Feliz MA - 09/23/2023 11:54 AM INTERNATIONAL FIRST OFFICER Pt calls the office stating that she is unable to send in a remote. Pt's device reached SUCTION DREDGE DUMPING SUPERVISOR 08-27-2023. She states she still has episodes of her heart pounding, she states it usually happens when she lies down at night and unsure how long they last. Pt concerned about this and asks what about these episodes. Website shows an event report from 09-15-2023 for tachy episode lasting 10 seconds, previous summary reports show no events, last event appears to be from 04-06-23 for a tachy episode [id number] 34 sec. Please advise. Elise see previous note re:visit with Dr. Bates RNATIONAL FIRST OFFICER * Telephone Encounter - Kera Feliz MA - 09/23/2023 9:23 AM CST Pt returned call, she is aware of my messages and will try to send in a manual report. She states that her ilr was discussed at last visit that the device could be left in or explanted. Per dr. Bates's note states will schedule explant when battery is depleted FYI RNATIONAL FIRST OFFICER * Telephone Encounter - Kera Feliz MA - 09/22/2023 1:18 PM CST Called pt to follow up on phone call from 09-15-23. LMOR again requesting pt send in a manual report.Instructed to call office if she has any questions or needs assistance. Pt reached SUCTION DREDGE DUMPING SUPERVISOR 08-27-2023 - SUCTION DREDGE DUMPING SUPERVISOR letter mailed. RNATIONAL FIRST OFFICER * Telephone Encounter - Kera Feliz MA - 09/15/2023 10:41 AM INTERNATIONAL FIRST OFFICER Pt's monitor no longer Dc'd, received report but it is an event report, pt reached SUCTION DREDGE DUMPING SUPERVISOR 08-27-2023. Called pt and requested that she send in a manual download, will monitor RNATIONAL FIRST OFFICER * Telephone Encounter - Kera Feliz MA - 09/08/2023 4:13 PM CST Called pt to inform her that her monitor is disconnected but had to LMOR. Explained what can cause this and to return my call if she has any questions RNATIONAL FIRST OFFICER documented in this encounter Plan of Treatment Not on file documented as of this encounter Visit Diagnoses Not on filedocumented in this encounter Care Teams Hot Punch Press Operator Relationship Specialty Start Date End Date Michael Sherman MD [address] [place] [address] PCP - General 01/28/17 Neil Bates MD [address] [facility] [address] [place] [address] Consulting Physician Cardiology 03/17/20 documented as of this encounter
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
--- OUTSIDE RECORDS SUMMARY | 2024-08-24 04:33 | XMS_ITS | Encounter Summary ---
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 Although they do not havean order for her. Requesting lab order be sent as well as a call back once complete as she is waiting in office. Contact:[phone] SPECIALIST documented in this encounter Plan of Treatment Not on file documented as of this encounter Procedures Procedure Name Priority Date/Time Associated Diagnosis Comments LIPID PANEL Routine 09/29/2023 10:42 AM PST SPECIALIST Mitral valve disease Pulmonary hypertension (HCC) PAT (paroxysmal atrial tachycardia) documented in this encounter Results * Lipid panel (09/29/2023 10:42 AM PST SPECIALIST) Cholesterol 176 <200 mg/dL [employer] [facility] HDL 70 > OR = 50 mg/dL [employer] [facility] [place] Triglycerides 80 <150 mg/dL [employer] [facility] LDL 89 mg/dL (calc) [employer] [facility] Comment: Reference range: <100 Desirable range <100 mg/dL for primary prevention; ?? <70 mg/dL for patients with CHD or diabetic patients with > or = 2 CHD risk factors. LDL-C is now calculated using the Anusha calculation, which is a validated novel method providing better accuracy than the Friedewald equation in the estimation of LDL-C. Chris SPEARS et al. MIRANDA. 2013;310(19): 0972-3052 (http://education.[employer]faq/MFH962) Chol/HDL ratio 2.5 <5.0 (calc) [employer] [facility] [place] Non-HDL, (LDL+VLDL) 106 <130 mg/dL (calc) [employer] [facility] Comment: For patients with diabetes plus 1 major ASCVD risk factor, treating to a non-HDL-C goal of <100 mg/dL (LDL-C of <70 mg/dL) is considered a therapeutic option. Blood 09/29/2023 10:4 2 AM PST SPECIALIST 09/29/2023 10:43 AM PST SPECIALIST Narrative [facility] - 09/29/2023 7:00 PM PST SPECIALIST FASTING:YES FASTING: YES us Neil Bates MD LAB BLOOD ORDERABLES [facility] [address] [place] [address] documented in this encounter Visit Diagnoses Diagnosis Mitral valve disease- Primary Other and unspecified mitral valve diseases Pulmonary hypertension (HCC) Other chronic pulmonary heart diseases PAT (paroxysmal atrial tachycardia) (HCC) Paroxysmal supraventricular tachycardia documented in this encounter Care Teams Security Rover Relationship Specialty Start Date End Date Michael Sherman MD [address] [place] [address] PCP - General 01/28/17 Neil Bates MD [address] [address] Consulting Physician Cardiology 03/17/20 documented as of this encounter
--- OUTSIDE RECORDS SUMMARY | 2024-08-24 04:33 | XMS_ITS | Encounter Summary ---
Author Organization [facility] Address [address] [facility] [address] [place] [address] Phone Care Team Providers Care Teletype Adjuster Name Role Phone Michael Sherman MD Primary Care Prov ider Neil Bates MD Unavailable Reason for Referral * Procedure (Routine) - Closed Specialty Diagnoses / Procedures Referred By Chelsy herbert Referred To Contact Diagnoses Asthma-COPD overlap syndrome (HCC) Procedures Pulmonary Function Test -[facility] Adult PFT Lab- CAM-8D; Spirometry Bi Ware MD [address] [facility] [address] [place] [address] Phone: tel: fax: Referral ID Status Reason Start Date Expiration Date Visits Re quested Visits Authorized [id number] Closed 12/12/2023 01/10/2025 1 1 Reason for Visit * Procedure (Routine) - Closed Specialty Diagnoses / Procedures Referred By Chelsy herbert Referred To Contact Diagnoses Asthma-COPD overlap syndrome (HCC) Procedures Pulmonary Function Test -[facility] Adult PFT Lab- CAM-8D; Spirometry Bi Ware MD [address] [facility] [address] [place] [address] Phone: tel: fax: Referral ID Status Reason Start Date Expiration Date Visits Re quested Visits Authorized [id number] Closed 12/12/2023 01/10/2025 1 1 Encounter Details Date Type Department Care Team (Latest Contact Info) Description 04/03/2024 2:30 PM CDT - 04/03/2024 11:59 PM CDT Hospital Encounter 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 Gender Identity Not on file Sexual Orientation Not on file documented as of this encounter Medications at Time of Discharge aspirin (ASPIR-81) 81 mg tablet take 1 tablet by oral route every day 0 0 12/11/2015 dilTIAZem CD/XR/XT (dilTIAZem XR) 120 mg 24 hr capsule Take 1 capsule (120 mg total) by mouth daily 90 capsule 6 08/17/2023 inhalational spacing device (Aerochamber MV) spacer Inhale 1 Units daily 1 each 2 04/03/2024 multivitamin-iro n-folic acid (Centrum) 18-400 mg-mcg tablet Take by mouth tiotropium (Spiriva with HandiHaler) 18 mcg per inhalation capsule Place 1 puff (1 capsule total) into inhaler and inhale daily 30 capsule 11 04/03/2024 04/03/2025 albuterol HFA (PROVENTIL HFA,VENTOLIN HFA,PROAIR HFA) 90 mcg/actuation inhaler Inhale 2 puffs every 6 (six) hours as needed for wheezing 1 each 5 01/30/2024 07/19/2024 fluticasone propion-salmeter oL (Advair HFA) 230-21 mcg/actuation inhalerIndicatio ns:Bronchospasm Prevention with COPD,Maintenance Therapy for Asthma Inhale 2 puffs 2 (two) times a day Rinse mouth with water after use. Do not swallow. 1 each 11 04/03/2024 06/29/2024 loratadine (CLARITIN) 10 mg tablet Take 1 tablet (10 mg total) by mouth daily 90 tablet 01/04/2024 04/09/2024 montelukast (SINGULAIR) 10 mg tablet Take 1 tablet (10 mg total) by mouth daily 90 tablet 03/13/2024 06/01/2024 documented as of this encounter Discharge Disposition Disposition Code Departure Means Destination Discharge to home or self care documented in this encounter Plan of Treatment Not on file documented as of this encounter Procedures Procedure Name Priority Date/Time Associated Diagnosis Comments PULMONARY FUNCTION TEST (PFT) Routine 04/03/2024 2:53 PM CDT Asthma-COPD overlap syndrome (HCC) documented in this encounter Results * Pulmonary Function Test - (04/03/2024 2:53 PM CDT) FVC PRE 3.06 L [facility] FVC %PRE PRED 82 % [facility] FEV1 PRE 1.87 L [facility] FEV1 %PRE PRED 65 % [facility] FEV1/FVC PRE 61.1 % [facility] Anatomical Region Laterality Modality PFT 04/03/2024 2:42 PM CDT Narrative 04/03/2024 7:06 PM CDT PFT performed at:->[facility] Adult PFT Lab- CAM-8D Procedure:->Spirometry Pulmonary Function [...] and %HbO2 is age dependent. However, the [facility] Pulmonary Function Laboratory defines hypoxemia as a PaO2 <56 mm Hg or a %HbO2 <89%. Bi Ware MD PFT ORDERABLES Krystyna l Result documented in this encounter Visit Diagnoses Diagnosis Asthma-COPD overlap syndrome (HCC) documented in this encounter Care Teams Teletype Adjuster Relationship Specialty Start Date End Date Michael Sherman MD [address] [place] [address] PCP - General 01/28/17 Neil Bates MD [address] [address] Consulting Physician Cardiology 03/17/20 documented as of this encounter
--- OUTSIDE RECORDS SUMMARY | 2024-08-24 04:34 | XMS_ITS | Encounter Summary ---
Author Organization [facility] Address [address] [address] Care Team Providers Care Poker Supervisor Name Role Phone Michael Sherman MD Primary Care Prov ider Neil Bates MD Unavailable Reason for Visit * Cardiology (Routine) - Closed Specialty Diagnoses / Procedures Referred By Contac t Referred To Contact Diagnoses Palpitations PAT (paroxysmal atrial tachycardia) (HCC) Procedures DEVICE CHECK - REMOTE DE REM INTERROG SCRMS <30 D PHYS/QHP DE INTER DEVC REMOTE 30D Neil Baets MD [address] [place] [address] Phone: tel: fax: [facility] Referral ID Status Reason Start Date Expiration Date Visits Re quested Visits Authorized [id number] Closed 09/28/2022 03/28/2024 1 1 Encounter Details Date Type Department Care Team (Latest Contact Info) Description 12/20/2022 7:15 AM CDT Ancillary Procedure [facility] Cardiology [facility] [address] Status post placement of implantable loop recorder [Z95.818 (ICD-10-CM)] (Primary Dx); Palpitations; PAT (paroxysmal atrial tachycardia) (CMS/HCC) ([facility]) Social History Tobacco Use Types Packs/Day Years [...] on file 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 Gender Identity Not on file Sexual Orientation Not on file documented as of this encounter Plan of Treatment Not on file documented as of this encounter Procedures Procedure Name Priority Date/Time Associated Diagnosis Comments DEVICE CHECK - REMOTE Routine 12/20/2022 4:19 PM CDT Palpitations PAT (paroxysmal atrial tachycardia) (CMS/HCC) ([facility]) documented in this encounter Results * DEVICE CHECK - REMOTE (12/20/2022 4:19 PM CDT) Anatomical Region Laterality Modality Other Narrative 03/07/2023 1:09 PM CDT Med[employer] LINQ ILR implanted for Palpitations/PAT on 03/17/2020. ??Nany ([facility] ) ??Jana (Card - follows) - [facility]. Routine ILR remote. Normal device function. Battery function-Ok. Presenting rhythm-VS, regular 70 bpm. Medications; Diltiazem, ASA 81 mg. No auto or patient recorded events noted. See scanned report. [facility] remote f/u 01/31/2023. Elise Knowles, RN us Neil Bates MD [facility] CARDIAC SERVICES PROCEDURES F inal Result documented in this encounter Visit Diagnoses Diagnosis Status post placement of implantable loop recorder [Z95.818 (ICD-10-CM)]- Primary Palpitations PAT (paroxysmal atrial tachycardia) ([facility]) Paroxysmal supraventricular tachycardia documented in this encounter Care Teams Poker Supervisor Relationship Specialty Start Date End Date Michael Sherman MD [address] [place] [address] PCP - General 01/28/17 Neil Bates MD [address] [address] Consulting Physician Cardiology 03/17/20 documented as of this encounter
--- OUTSIDE RECORDS SUMMARY | 2024-08-24 04:34 | XMS_ITS | Encounter Summary ---
Author Organization [facility] Address [address] [address] Care Team Providers Care Development System Efficiency Manager Name Role Phone Michael Sherman MD Primary Care Prov ider Neil Bates MD Unavailable Reason for Referral * Cardiology (Routine) - Closed Specialty Diagnoses / Procedures Referred By Chelsy herbert Referred To Contact Diagnoses Palpitations Procedures DEVICE CHECK - REMOTE Neil Bates MD [address] [address] Phone: tel: fax: [facility] Referral ID Status Reason Start Date Expiration Date Visits Re quested Visits Authorized [id number] Closed 09/15/2021 03/15/2023 1 1 ER VACUUM * Cardiology (Routine) - Closed Specialty Diagnoses / Procedures Referred By Chelsy herbert Referred To Contact Diagnoses Palpitations Procedures DEVICE CHECK - REMOTE Neil Bates MD [address] [address] Phone: tel: fax: [facility] Referral ID Status Reason Start Date Expiration Date Visits Re quested Visits Authorized [id number] Closed 09/15/2021 03/15/2023 1 1 ER VACUUM * Cardiology (Routine) - Closed Specialty Diagnoses / Procedures Referred By Contfinn herbert Referred To Contact Diagnoses Palpitations Procedures DEVICE CHECK - REMOTE Neil Bates MD [address] [address] Phone: tel: fax: [facility] Referral ID Status Reason Start Date Expiration Date Visits Re quested Visits Authorized [id number] Closed 09/15/2021 03/15/2023 1 1 ER VACUUM * Cardiology (Routine) - Closed Specialty Diagnoses / Procedures Referred By Chelsy herbert Referred To Contact Diagnoses Palpitations Procedures DEVICE CHECK - REMOTE Neil Bates MD [address] [address] Phone: tel: fax: [facility] Referral ID Status Reason Start Date Expiration Date Visits Re quested Visits Authorized [id number] Closed 09/15/2021 03/15/2023 1 1 ER VACUUM Encounter Details Date Type Department Care Team (Late st Contact Info) Description 09/15/2021 Orders Only [facility] Cardiology [address] [place] [phone] Neil Bates MD [address] [address] Palpitations (Primary Dx) Social History Tobacco Use Types Packs/Day Years Used Date Smoking Tobacco: Never Smokeless Tobacco: Never Alcohol Use Standard Drinks/Week Comments No 0 (1 standard drink = 0.6 oz pur e alcohol) Comments No Sex and Gender Information Value Date Recorded Sex Assigned at Not on file Legal Sex Female 11:00 AM MOLDER 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 ??Nany (Dudley CHAMPAGNE) ??Jana (Card - follows) - [facility]. Routine remote. Normal device function. Battery function-Ok. Presenting rhythm-VS, regular 60 bpm. Medications; no cardiac meds listed. No auto or patient recorded episodes noted. See scanned report. [facility] remote f/u 05/24/2022. Neil Bates MD [facility] C[facility] SERVICES PROCEDURES F inal Result * DEVICE CHECK - REMOTE (03/01/2022 11:31 AM CDT) Anatomical Region Laterality Modality Other Narrative 04/20/2022 12:24 PM CDT Medtronic LINQ ILR implanted for Palpitations/PAT on 03/17/2020. ??Nany (Dudley CHAMPAGNE) ??Jana (Card - follows) - [facility]. Routine remote. Normal device function. Battery function-Ok. Presenting rhythm-VS, regular 60 bpm. Medications; no cardiac meds listed. No auto or patient recorded episodes noted. See scanned report. [facility] remote f/u 04/12/2022. [04/19/2022 7:54:07 PM - BRAXTON SHERIFF] Neil Bates MD CV CARDIAC SERVICES PROCEDURES F inal Result * DEVICE CHECK - REMOTE (01/18/2022 1:30 PM CDT) Anatomical Region Laterality Modality Other Narrative 01/20/2022 4:26 PM CDT Medtronic LINQ ILR implanted for Palpitations/PAT on 03/17/2020. ??Nany (Dudley CHAMPAGNE) ??Jana (Card - follows) - [facility]. ?? Routine remote. Normal device function. Battery function-Ok. ?? Presenting rhythm-VS, regular 66 bpm. Medications; no cardiac meds listed. ?? No auto or patient recorded episodes noted. See scanned report. ?? [facility] remote f/u 03/01/2022. Neil Bates MD CV CARDIAC SERVICES PROCEDURES F inal Result * DEVICE CHECK - REMOTE (12/10/2021 11:56 AM CDT) Anatomical Region Laterality Modality Other Narrative 01/20/2022 4:26 PM CDT Medtronic LINQ ILR implanted for Palpitations/PAT on 03/17/2020. ??Nany (Dudley CHAMPAGNE) ??Jana (Card - follows) - [facility]. ?? Routine remote. Normal device function. Battery function-Ok. ?? Presenting rhythm-VS, regular 64 bpm. Medications; no cardiac meds listed. ?? No auto or patient recorded episodes noted. See scanned report. ?? [facility] remote f/u 01/18/2022. Neil Bates MD CV CARDIAC SERVICES PROCEDURES F inal Result documented in this encounter Visit Diagnoses Diagnosis Palpitations- Primary Palpitations Status post placement of implantable loop recorder PSVT (paroxysmal supraventricular tachycardia) (HCC) Paroxysmal supraventricular tachycardia Palpitations PSVT (paroxysmal supraventricular tachycardia) (HCC) Paroxysmal supraventricular tachycardia Status post placement of implantable loop recorder Palpitations Status post placement of implantable loop recorder Palpitations Status post placement of implantable loop recorder PSVT (paroxysmal supraventricular tachycardia) (HCC) Paroxysmal supraventricular tachycardia documented in this encounter Care Teams Development System Efficiency Manager Relationship Specialty Start Date End Date Michael Sherman MD [address] [place] [address] PCP - General 01/28/17 Neil Bates MD [address] [facility] [address] [place] [address] Consulting Physician Cardiology 03/17/20 documented as of this encounter
--- OUTSIDE RECORDS SUMMARY | 2024-08-24 04:34 | XMS_ITS | Encounter Summary ---
Author Organization [facility] Address [address] [address] Care Team Providers Care Electrician Technician Name Role Phone Michael Sherman MD Primary Care Prov ider Neil Bates MD Unavailable Reason for Visit * Cardiology (Routine) - Closed Specialty Diagnoses / Procedures Referred By Contac t Referred To Contact Diagnoses Palpitations Procedures DEVICE CHECK - REMOTE Neil Bates MD [address] [place] [address] Phone: tel: fax: [facility] Referral ID Status Reason Start Date Expiration Date Visits Re quested Visits Authorized [id number] Closed 12/01/2020 12/31/2021 1 1 Encounter Details Date Type Department Care Team (Latest Contact Info) Description 05/11/2021 7:30 AM CDT Ancillary Procedure [facility] Cardiology [address] [place] [phone] Palpitations; Status post placement of implantable loop recorder Social History Tobacco Use Types Packs/Day Years Used Date Smoking Tobacco: Never Smokeless Tobacco: Never Alcohol Use Standard Drinks/Week Comments No 0 (1 standard drink = 0.6 oz pur e alcohol) Comments No Sex and Gender Information Value Date Recorded Sex Assigned at Not on file Legal Sex Female 11: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 ??Nany (Imp ) ??Jana (Card - follows) - [facility]. ?? Routine remote. Normal device function. Battery function-Ok. ?? Presenting rhythm-VS, regular 54 bpm. Medications; no cardiac meds listed. ?? No auto or patient recorded episodes noted. See scanned report. ?? [facility] remote f/u 06/22/2021. Neil Bates MD CV CARDIAC SERVICES PROCEDURES F inal Result documented in this encounter Visit Diagnoses Diagnosis Palpitations Status post placement of implantable loop recorder documented in this encounter Care Teams Electrician Technician Relationship Specialty Start Date End Date Michael Sherman MD [address] [place] [address] PCP - General 01/28/17 Neil Bates MD [address] [facility] [address] [place] [address] Consulting Physician Cardiology 03/17/20 documented as of this encounter
--- OUTSIDE RECORDS SUMMARY | 2024-08-24 04:34 | XMS_ITS | Encounter Summary ---
Author Organization [facility] Address [address] [address] Care Team Providers Care Billiard Table Repairer Name Role Phone Michael Sherman MD Primary Care Prov ider Neil Bates MD Unavailable Reason for Referral * Cardiology (Routine) - Closed Specialty Diagnoses / Procedures [facility] Referred To Contact Cardiology Diagnoses Palpitations PAT (paroxysmal atrial tachycardia) (HCC) Procedures DEVICE CHECK - REMOTE Neil Bates MD [address] [address] Phone: tel: fax: [facility] Referral ID Status Reason Start Date Expiration Date Visits Re quested Visits Authorized [id number] Closed 01/31/2023 08/02/2024 1 1 * Cardiology (Routine) - Closed Specialty Diagnoses / Procedures Referred By Contac t Referred To Contact Diagnoses Palpitations PAT (paroxysmal atrial tachycardia) (HCC) Procedures DEVICE CHECK - IN OFFICE Neil Bates MD [address] [address] Phone: tel: fax: [facility] Referral ID Status Reason Start Date Expiration Date Visits Re quested Visits Authorized [id number] Closed 01/31/2023 03/01/2024 1 1 * Cardiology (Routine) - Closed Specialty Diagnoses / Procedures Referred By Contac t Referred To Contact Diagnoses Palpitations PAT (paroxysmal atrial tachycardia) ([facility]) Procedures DEVICE CHECK - REMOTE Neil Bates MD [address] [address] Phone: tel: fax: [facility] Referral ID Status Reason Start Date Expiration Date Visits Re quested Visits Authorized [id number] Closed 01/31/2023 08/02/2024 1 1 * Cardiology (Routine) - Closed Specialty Diagnoses / Procedures Referred By Contac t Referred To Contact Diagnoses Palpitations PAT (paroxysmal atrial tachycardia) (HCC) Procedures DEVICE CHECK - REMOTE Neil Bates MD [address] [address] Phone: tel: fax: [facility] Referral ID Status Reason Start Date Expiration Date Visits Re quested Visits Authorized [id number] Closed 01/31/2023 08/02/2024 1 1 * Cardiology (Routine) - Closed Specialty Diagnoses / Procedures Referred By Contac t Referred To Contact Diagnoses Palpitations PAT (paroxysmal atrial tachycardia) ([facility]) Procedures DEVICE CHECK - REMOTE Neil aBtes MD [address] [address] Phone: tel: fax: [facility] Referral ID Status Reason Start Date Expiration Date Visits Re quested Visits Authorized [id number] Closed 01/31/2023 08/02/2024 1 1 * Cardiology (Routine) - Closed Specialty Diagnoses / Procedures Referred By Contac t Referred To Contact Diagnoses Palpitations PAT (paroxysmal atrial tachycardia) ([facility]) Procedures DEVICE CHECK - REMOTE Neil Bates MD [address] [place] [address] Phone: tel: fax: [facility] Referral ID Status Reason Start Date Expiration Date Visits Re quested Visits Authorized [id number] Closed 01/31/2023 08/02/2024 1 1 Encounter Details Date Type Department Care Team (Late st Contact Info) Description 01/31/[address] [facility] Cardiology [address] [place] [phone] Kera Feliz MA Palpitations (Primary Dx); PAT (paroxysmal atrial tachycardia) (CMS/HCC) ([facility]) Social History Tobacco Use Types [...] on file Legal Sex Female 11:00 AM SQUEEGEER AND FORMER Gender Identity Not on file Sexual Orientation Not on file documented as of this encounter Plan of Treatment Scheduled Orders Name Type Priority Associated Diagnoses Orde r Schedule DEVICE CHECK - REMOTE Cardiac Services Routine Palpitations PAT (paroxysmal atrial tachycardia) (CMS/HCC) ([facility]) Expected: 01/31/2023, Expires: 08/14/2030 DEVICE CHECK - IN OFFICE Cardiac Services Routine Palpitations PAT (paroxysmal atrial tachycardia) (CMS/HCC) ([facility]) Expected: 01/31/2023, Expires: 08/14/2030 DEVICE CHECK - REMOTE Cardiac Services Routine Palpitations PAT (paroxysmal atrial tachycardia) (CMS/HCC) (HCC) Expected: 01/31/2023, Expires: 08/14/2030 documented as of this encounter Results * DEVICE CHECK - REMOTE (09/05/2023 11:59 AM SQUEEGEER AND FORMER) Anatomical Region Laterality Modality Other Narrative 09/05/2023 3:18 PM SQUEEGEER AND FORMER Medtronic Loop Recorder implanted on 17-Mar-2020 for AF Management. Routine ILR remote. DOS: 05-Sep-2023 Normal device function. Battery function: OK Medications: ASA, Diltiazem- among others Presenting rhythm: VS at 70 bpm Events: ??Since last check on, 25-Jul-2023- no events AF burden: 0% Plan: ??Continue remote monitoring FLORES Monterroso Device Specialist Neil Bates MD CV CARDIAC SERVICES PROCEDURES F inal Result * DEVICE CHECK - REMOTE (07/25/2023 3:57 PM SQUEEGEER AND FORMER) Anatomical Region Laterality Modality Other Narrative 07/28/2023 2:45 PM SQUEEGEER AND FORMER Medtronic Reveal LINQ Loop Recorder implanted 17-Mar-2020 for AF Management. Routine ILR remote. Normal device function. Battery function: OK Anti-coagulant(s): ??ASA Anti-arrhythmic(s): Diltiazem Presenting rhythm: VS at 76 bpm Events: ??Since last check on 13-Jun-2023, no events Lifetime AF burden: 0 % Plan: ??Continue remote monitoring FLORES Monterroso Device Specialist Neil Bates MD CV CARDIAC SERVICES PROCEDURES F inal Result * DEVICE CHECK - REMOTE (06/13/2023 10:18 AM CDT) Anatomical Region Laterality Modality Other Narrative 06/14/2023 1:07 PM CDT Medtronic REVEAL LinQ implanted March 17, 2020 for [...] event. 2) Continue to monitor remotely. Alessio Pemberton Device Wash Oil Pump Operator us Neil Bates MD CV CARDIAC SERVICES PROCEDURES F inal Result documented in this encounter Visit Diagnoses Diagnosis Palpitations- Primary PAT (paroxysmal atrial tachycardia) (HCC) Paroxysmal supraventricular tachycardia Status post placement of implantable loop recorder- Primary Palpitations PAT (paroxysmal atrial tachycardia) (HCC) Paroxysmal supraventricular tachycardia Status post placement of implantable loop recorder- Primary Palpitations PAT (paroxysmal atrial tachycardia) (HCC) Paroxysmal supraventricular tachycardia documented in this encounter Care Teams Billiard Table Repairer Relationship Specialty Start Date End Date Michael Sherman MD [address] [place] [address] PCP - General 01/28/17 Neil Bates MD [address] [place] [id number] Consulting Physician Cardiology 03/17/20 documented as of this encounter
--- OUTSIDE RECORDS SUMMARY | 2024-08-24 04:34 | XMS_ITS | Encounter Summary ---
Author Organization [facility] Address [address] [address] Care Team Providers Care Cns Name Role Phone Michael Sherman MD Primary Care Prov ider Neil Bates MD Unavailable Reason for Visit * Cardiology (Routine) - Closed Specialty Diagnoses / Procedures Referred By Contac t Referred To Contact Diagnoses Palpitations PAT (paroxysmal atrial tachycardia) (HCC) Procedures DEVICE CHECK - REMOTE Neil Bates MD [address] [place] [address] Phone: tel: fax: [facility] Referral ID Status Reason Start Date Expiration Date Visits Re quested Visits Authorized [id number] Closed 03/30/2021 04/29/2022 1 1 Encounter Details Date Type Department Care Team (Latest Contact Info) Description 08/03/2021 7:45 AM AUTOMOTIVE ELECTRICIAN Ancillary Procedure [facility] Cardiology [address] [place] [phone] Palpitations; PAT (paroxysmal atrial tachycardia) (CMS/HCC) (HCC); Status post placement of implantable loop recorder Social History Tobacco Use Types Packs/Day Years Used Date Smoking Tobacco: Never Smokeless Tobacco: Never Alcohol Use Standard Drinks/Week Comments No 0 (1 standard drink = 0.6 oz pur e alcohol) Comments No Sex and Gender Information Value Date Recorded Sex Assigned at Not on file Legal Sex Female 11:00 AM AUTOMOTIVE ELECTRICIAN Gender Identity Not on file Sexual Orientation Not on file documented as of this encounter Plan of Treatment Not on file documented as of this encounter Procedures Procedure Name Priority Date/Time Associated Diagnosis Comments DEVICE CHECK - REMOTE Routine 08/03/2021 4:10 PM AUTOMOTIVE ELECTRICIAN Palpitations PAT (paroxysmal atrial tachycardia) (CMS/HCC) (HCC) documented in this encounter Results * DEVICE CHECK - REMOTE (08/03/2021 4:10 PM AUTOMOTIVE ELECTRICIAN) Anatomical Region Laterality Modality Other Narrative 09/21/2021 3:58 PM AUTOMOTIVE ELECTRICIAN Medtronic LINQ ILR implanted for Palpitations/PAT on 03/17/2020. ??Nany (Imp ) ??Jana (Card - follows) - [facility]. ?? Routine remote. Normal device function. Battery function-Ok. ?? Presenting rhythm-VS, regular 68 bpm. Medications; no cardiac meds listed. ?? No auto or patient recorded episodes noted. See scanned report. ?? [facility] remote f/u 09/14/2021. Neil Bates MD CV CARDIAC SERVICES PROCEDURES F inal Result documented in this encounter Visit Diagnoses Diagnosis Palpitations PAT (paroxysmal atrial tachycardia) (HCC) Paroxysmal supraventricular tachycardia Status post placement of implantable loop recorder documented in this encounter Care Teams Cns Relationship Specialty Start Date End Date Michael Sherman MD [address] [place] [address] PCP - General 01/28/17 Neil Bates MD [address] [facility] [address] [place] [address] Consulting Physician Cardiology 03/17/20 documented as of this encounter
--- OUTSIDE RECORDS SUMMARY | 2024-08-24 04:34 | XMS_ITS | Encounter Summary ---
Author Organization [facility] Address [address] [place] [address] Phone Care Team Providers Care Organizational Development Consultant Name Role Phone Martin Sherman MD Primary Care Prov ider Neil Bates MD Unavailable Encounter Details Date Type Department Care Team (Late st Contact Info) Description 08/25/2021 2:00 PM CLINICAL GENETICIST Office Visit [facility] Pulmonary [address] [facility] Advanced Medicine [address]th [place] [address] [place] [address] Bi Ware MD [address] [address] [place] [address] Asthma-COPD overlap syndrome (CMS/HCC) (HCC) (Primary Dx); Allergic rhinitis, unspecified seasonality, unspecified trigger Social History Tobacco Use Types Packs/Day Years Used Date Smoking Tobacco: Never Smokeless Tobacco: Never Alcohol Use Standard Drinks/Week Comments No 0 (1 standard drink = 0.6 oz pur e alcohol) Comments No Sex and Gender Information Value Date Recorded Sex Assigned at Not on file Legal Sex Female 11:00 AM CLINICAL GENETICIST Gender Identity Not on file Sexual Orientation Not on file documented as of this encounter Last Filed Vital Signs Vital Sign Reading Time Taken Comments Blood Pressure 123/75 08/25/2021 1:59 PM CLINICAL GENETICIST Pulse 67 08/25/2021 1:59 PM CLINICAL GENETICIST Temperature 36.4 ??C (97.5 ??F) 08/25/2021 1:59 PM CS T Respiratory Rate 18 08/25/2021 1:59 PM CLINICAL GENETICIST Oxygen Saturation 97% 08/25/2021 1:59 PM CLINICAL GENETICIST Inhaled Oxygen Concentration - - Weight 63 kg (139 lb) 08/25/2021 1:59 PM CLINICAL GENETICIST Height 176.5 cm (5' 9.5 ) 08/25/2021 1:59 PM CLINICAL GENETICIST Body Mass Index 20.23 08/25/2021 1:59 PM CLINICAL GENETICIST documented in this encounter Ordered Prescriptions Prescription Sig Dispense Quantity Refills Last Filled Start Date End Date loratadine (CLARITIN) 10 mg tablet Take 1 tablet (10 mg total) by mouth daily 90 tablet 3 08/25/2021 3 montelukast (SINGULAIR) 10 mg tablet Take 1 tablet (10 mg total) by mouth daily 90 tablet 3 08/25/2021 3 albuterol HFA (PROVENTIL HFA,VENTOLIN HFA,PROAIR HFA) 90 mcg/actuation inhaler Inhale 2 puffs every 6 (six) hours as needed for wheezing 1 each 08/25/2021 2 fluticasone propion-salmeteroL (Wixela Inhub) 500-50 mcg/dose diskus inhaler Inhale 1 puff 2 (two) times a day Rinse mouth with water after use. Do not swallow. 60 each 08/25/2021 4 documented in this encounter Progress Notes * Leander Villaseñor MD - 08/25/2021 12:00 AM CST PATIENT NAME: YANE FAGAN : 1960 [address]: 08/25/2021 PROBLEM LIST: 1. Moderate persistent asthma, with [...] event monitors. Intolerant of metoprolol. INTERVAL HISTORY: Ms. Fagan is a pleasant 61-year-old female with a history of severe persistent asthma with possibleCOPD overlap and allergic rhinitis, who presents to the [facility] for routine follow-up. Since her last appointment in February 2021, she reports that she has overall done well. She has not had any exacerbations since that time requiring ER visits, urgent care visits, or unscheduled PCP visits. She has not required any additional steroid for antibiotic therapy in the last 6 months. She remains very physically active and walks at least 5 miles a day in addition to performing yard work on her 2-acre property. She continues to use Wixela 500/50 mcg b.i.d., and she endorses full compliancewith the medication, as well as rinsing her mouth out after each use. She has been using albuterol inhaler somewhat more during the winter as she reports that the cold weather exacerbates her breathin g. She relates that she continues to visit her [id number] at least twice- weekly to cook for her in-laws, and that she is constantly around secondhand smoke there which exacerbates her breathing aswell. She uses her albuterol approximately 1 to 2 times a day as a result; however, she is not having nocturnal symptoms or any recent flare-ups requiring her to increase her albuterol usage beyond that. She also remains on Claritin and Singulair. She also relates that she was able to obtain the COVID vaccinations after initial difficulty due toher extensive allergy list. She received her first shot in February 2021 and her second shot of Pfizer on 03/17/2021. She also was able to obtain influenza vaccine in July. She intends to obtain a COVID booster shot around the end of this month. Lastly, she notes that she has been having some intermittent chest pain that is not clearly exertional in nature. This occurred in the setting of stress over the holidays and was described as sharp and radiating to her back. She notes that she has a loop recorder in place the from her vibrator equipment tester,but she has not seen them in over a year and a half. REVIEW OF SYSTEMS: All other systems were reviewed and were negative. MEDICATIONS: 1. Wixela 500/50 mcg 1 puff b.i.d. 2. Albuterol and HFA p.r.n. 3. Aspirin 81 mg daily. 4. Claritin 10 mg once daily. 5. Montelukast 10 mg daily. 6. Multivitamin. PHYSICAL EXAMINATION: Vital Signs: Blood pressure 123/75, pulse 67, respiratory rate 18, temperature 36.4 degrees Celsius, SpO2 of 97% on room air. Weight 63 kg, which is 139 pounds. Height 176.5 cm, which is 5 feet 9-1/2inches. This corresponds to a BMI of 20.2. General Appearance: This is a pleasant, female, sitting on the exam chair, in no acute distress. She responds fluently and appropriately in full sentences. HEENT: Normocephalic, atraumatic. Moist mucosa. Facial mask initially in place. Cardiovascular: Regular rate and rhythm. No murmurs, rubs, or gallops. Respiratory: Clear to auscultation bilaterally. No wheezes, rales, or rhonchi. Abdomen: Soft, nontender, nondistended. Bowel sounds are present. Extremities: No significant lower extremity edema. DATA: Spirometry performed today shows FVC 3.05, which is 80% of predicted. FEV1 is 2.00 L, which is 67% of predicted. This corresponds to an FEV1/FVC ratio of 66%. On the basis of these PFTs, there is a moderate obstructive ventilatory defect. When compared to her previous PFTs from February 2021, there hasbeen a significant improvement in both FEV1 and FVC. ASSESSMENT: 1. Moderate persistent asthma. 2. Allergic rhinitis. 3. Possible chronic obstructive pulmonary disease overlap. 4. History of resected lung cancer in 2009. Ms. Fagan presents to the [facility] at [facility] for follow-up of her asthma. Since her last appointment, she has not had any asthma exacerbations requiring steroid or antibiotic therapy and functionally she continues to do remarkably well. She is compliant with her inhaler therapy and is not having any adverse reactions associated with them at this time. She is having some sharp chest pains that do not sound clearly anginal or pleuritic in nature, and given the description of sharp pain, we suspect this is most likely musculoskeletal. However, we discussed with her that she should probably be seen by her vibrator equipment tester sooner rather than later, particularly given that she has an implanted loop recorder and the prolonged time that has elapsed since her last appointment. Otherwise, we will plan to leave her asthma therapies the same at today's visit. PLAN: 1. We will continue her on Wixela 500/50 mcg b.i.d. 2. She will continue on albuterol HFA p.r.n. 3. She will continue on Singulair and Claritin for her allergic rhinitis. 4. We discussed that she should obtain the [employer] booster at the end of the month on schedule. She has already received her flu vaccine for the year. She did receive a pneumonia vaccine previously, but had a localized reaction to it. 5. As she is doing well, we will plan to see her back in 1 year's time, or sooner as the need arises. She was amenable to this plan. We appreciate the opportunity to be involved in the care of this pleasant patient. Please do not hesitate to contact us with any questions or concerns. ELECTRONICALLY SIGNED - 08/26/2021 08:33 AM Leander Villaseñor M.D. Fellow Bi Ware M.D. Pulmonary and Critical Care Medicine SC/SM/cp cc: MARTIN SHERMAN MD [address] [place] [address] / Cosigned by Bi Ware MD at 09/10/2021 11:09 AM CLINICAL GENETICIST ICAL GENETICIST ICAL GENETICIST Associated attestation - Bi Ware MD - 09/10/2021 11:09 AM CLINICAL GENETICIST I have seen and examined the patient on the day of service. I agree with findings and recommendations detailed in the fellow physician's note. documented in this encounter Plan of Treatment Not on file documented as of this encounter Visit Diagnoses Diagnosis Asthma-COPD overlap syndrome (HCC)- Primary Allergic rhinitis, unspecified seasonality, unspecified trigger documented in this encounter Discontinued Medications Medication Sig Discontinue Reason Start Date End Da te loratadine (CLARITIN) 10 mg tablet Take 10 mg by mouth daily Reorder 09/17/2020 08/25/2021 montelukast (SINGULAIR) 10 mg tablet Take 10 mg by mouth daily Reorder 10/01/2019 08/25/2021 fluticasone propion-salmeteroL (Wixela Inhub) 500-50 mcg/dose diskus inhaler Inhale 1 puff 2 (two) times a day Rinse mouth with water after use. Do not swallow. Reorder 02/19/2021 08/25/2021 albuterol HFA (PROVENTIL HFA,VENTOLIN HFA,PROAIR HFA) 90 mcg/actuation inhaler Inhale 2 puffs every 6 (six) hours as needed for wheezing Reorder 02/19/2021 08/25/2021 documented as of this encounter Care Teams Organizational Development Consultant Relationship Specialty Start Date End Date Martin Sherman MD [address] [place] [address] PCP - General 01/28/17 Neil Bates MD [address] [facility] [address] [place] [address] Consulting Physician Cardiology 03/17/20 documented as of this encounter
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
--- OUTSIDE RECORDS SUMMARY | 2024-08-24 04:34 | XMS_ITS | Encounter Summary ---
Author Organization [facility] Medical Group Address [address] [address] Care Team Providers Care Zipper Ironer Name Role Phone Michael Sherman MD Primary Care Prov ider Neil Bates MD Unavailable Reason for Visit * Cardiology (Routine) - Closed Specialty Diagnoses / Procedures Referred By Contac t Referred To Contact Diagnoses Palpitations PAT (paroxysmal atrial tachycardia) (HCC) Procedures DEVICE CHECK - REMOTE Neil Bates MD [address] [place] [address] Phone: tel: fax: [facility] Medical Group Referral ID Status Reason Start Date Expiration Date Visits Re quested Visits Authorized [id number] Closed 12/18/2021 06/20/2023 1 1 Encounter Details Date Type Department Care Team (Latest Contact Info) Description 06/28/2022 9:30 AM PIT HAND Ancillary Procedure [facility] Medical [facility] Cardiology [address] [place] [phone] Palpitations; PAT (paroxysmal atrial tachycardia) (CMS/HCC) [...] on file Legal Sex Female 11:00 AM PIT HAND Gender Identity Not on file Sexual Orientation Not on file documented as of this encounter Plan of Treatment Not on file documented as of this encounter Procedures Procedure Name Priority Date/Time Associated Diagnosis Comments DEVICE CHECK - REMOTE Routine 06/28/2022 3:11 PM PIT HAND Palpitations PAT (paroxysmal atrial tachycardia) (CMS/HCC) (HCC) documented in this encounter Results * DEVICE CHECK - REMOTE (06/28/2022 3:11 PM PIT HAND) Anatomical Region Laterality Modality Other Narrative 08/20/2022 1:31 PM PIT HAND Medtronic LINQ ILR implanted for Palpitations/PAT on 03/17/2020. ??Nany (Imp ) ??Jana (Card - follows) - Carelink. Routine ILR remote. Normal device function. Battery function-Ok. Presenting rhythm-VS, regular 58 bpm. Medications; no cardiac meds listed. 1-Tachy episode recorded on 08/10/2022, egm suggestive of SVT, 176 bpm, 11 second duration noted. See device check attachment. See scanned report. Carelink remote f/u 08/17/2022. us Neil Bates MD CV CARDIAC SERVICES PROCEDURES F inal Result documented in this encounter Visit Diagnoses Diagnosis Palpitations PAT (paroxysmal atrial tachycardia) (HCC) Paroxysmal supraventricular tachycardia Status post placement of implantable loop recorder documented in this encounter Care Teams Zipper Ironer Relationship Specialty Start Date End Date Michael Sherman MD [address] [place] [address] PCP - General 01/28/17 Neil Bates MD [address] [facility] [place] [address] [place] [address] Consulting Physician Cardiology 03/17/20 documented as of this encounter
--- OUTSIDE RECORDS SUMMARY | 2024-08-24 04:34 | XMS_ITS | Encounter Summary ---
Author Organization [facility] Address [address] [address] Care Team Providers Care Seismic Observer Name Role Phone Michael Sherman MD Primary Care Prov ider Neil Bates MD Unavailable Reason for Referral * Cardiology (Routine) - Closed Specialty Diagnoses / Procedures Referred By Chelsy herbert Referred To Contact Diagnoses Palpitations Procedures DEVICE CHECK - REMOTE Neil Bates MD [address] [address] Phone: tel: fax: [facility] Referral ID Status Reason Start Date Expiration Date Visits Re quested Visits Authorized [id number] Closed 12/01/2020 12/31/2021 1 1 * Cardiology (Routine) - Closed Specialty Diagnoses / Procedures Referred By Chelsy herbert Referred To Contact Diagnoses Palpitations Procedures DEVICE CHECK - REMOTE Neil Bates MD [address] [address] Phone: tel: fax: [facility] Referral ID Status Reason Start Date Expiration Date Visits Re quested Visits Authorized [id number] Closed 12/01/2020 12/31/2021 1 1 Encounter Details Date Type Department Care Team (Late st Contact Info) Description 12/01/2020 Orders Only [facility] Cardiology [address] [facility] [address] [place] [address] Neil Bates MD [address] [place] [address] [address] [facility] [address] [place] [address] Palpitations (Primary Dx) Social History Tobacco Use Types Packs/Day Years Used Date Smoking Tobacco: Never Smokeless Tobacco: Never Alcohol Use Standard Drinks/Week Comments No 0 (1 standard drink = 0.6 oz pur e alcohol) Comments No Sex and Gender Information Value Date Recorded Sex Assigned at Not on file Legal Sex Female 11:00 AM SURGERY AID Gender Identity Not on file Sexual Orientation Not on file documented as of this encounter Plan of Treatment Not on file documented as of this encounter Results * DEVICE CHECK - REMOTE (05/13/2021 11:26 AM CDT) Anatomical Region Laterality Modality Other Narrative 07/02/2021 2:33 PM SURGERY AID Medtronic LINQ ILR implanted for Palpitations/PAT on [...] inal Result * DEVICE CHECK - REMOTE (03/30/2021 2:07 PM CDT) Anatomical Region Laterality Modality Other Narrative 04/27/2021 7:56 AM CDT Medtronic LINQ ILR implanted for Palpitations/PAT on 03/17/2020. ??Nany ([place]) ??Jana (Card - follows) - Carelink. Routine remote. Normal device function. Battery function-Ok. Presenting rhythm-VS, regular 74 bpm. Medications; no cardiac meds listed. No auto or patient recorded episodes noted. See scanned report. Carelink remote f/u 05/11/2021. Neil Bates MD CV CARDIAC SERVICES PROCEDURES F inal Result documented in this encounter Visit Diagnoses Diagnosis Palpitations- Primary Palpitations Status post placement of implantable loop recorder Palpitations Status post placement of implantable loop recorder documented in this encounter Care Teams Seismic Observer Relationship Specialty Start Date End Date Michael Sherman MD [address] [place] [address] PCP - General 01/28/17 Neil Bates MD [address] [address] Consulting Physician Cardiology 03/17/20 documented as of this encounter
--- OUTSIDE RECORDS SUMMARY | 2024-08-24 04:34 | XMS_ITS | Encounter Summary ---
Author Organization [facility] Address [address] [address] Care Team Providers Care Flanger Name Role Phone Michael Sherman MD Primary Care Prov ider Neil Bates MD Unavailable Reason for Visit * Cardiology (Routine) - Closed Specialty Diagnoses / Procedures Referred By Contac t Referred To Contact Diagnoses Palpitations Procedures DEVICE CHECK - REMOTE Neil Bates MD [address] [place] [address] Phone: tel: fax: [facility] Referral ID Status Reason Start Date Expiration Date Visits Re quested Visits Authorized [id number] Closed 09/15/2021 03/15/2023 1 1 Encounter Details Date Type Department Care Team (Latest Contact Info) Description 12/07/2021 8:00 AM CDT Ancillary Procedure [facility] Medical [facility] Cardiology [address] [place] [phone] Palpitations; Status post placement of implantable loop recorder; PSVT (paroxysmal supraventricular tachycardia) (CMS/HCC) (HCC) Social History Tobacco Use Types Packs/Day Years Used Date Smoking Tobacco: Never Smokeless Tobacco: Never Alcohol Use Standard Drinks/Week Comments No 0 (1 standard drink = 0.6 oz pur e alcohol) Comments No Sex and Gender Information Value Date Recorded Sex Assigned at Not on file Legal Sex Female 11:00 AM REQUIREMENTS ANALYST Gender Identity Not on file Sexual Orientation Not on file documented as of this encounter Plan of Treatment Not on file documented as of this encounter Procedures Procedure Name Priority Date/Time Associated Diagnosis Comments DEVICE CHECK - REMOTE Routine 12/10/2021 11:56 AM CDT Palpitations documented in this encounter Results * DEVICE CHECK - REMOTE (12/10/2021 11:56 [...] tachycardia documented in this encounter Care Teams Flanger Relationship Specialty Start Date End Date Michael Sherman MD [address] [place] [address] PCP - General 01/28/17 Neil Bates MD [address] [address] Consulting Physician Cardiology 03/17/20 documented as of this encounter
--- OUTSIDE RECORDS SUMMARY | 2024-08-24 04:34 | XMS_ITS | Encounter Summary ---
Author Organization [facility] Medical Group Address [address] [address] Care Team Providers Care Drawing Hand Name Role Phone Michael Sherman MD Primary Care Prov ider Neil Bates MD Unavailable Reason for Visit * Cardiology (Routine) - Closed Specialty Diagnoses / Procedures Referred By Contac t Referred To Contact Diagnoses Palpitations PAT (paroxysmal atrial tachycardia) (HCC) Procedures DEVICE CHECK - REMOTE Neil Bates MD [address] [place] [address] Phone: tel: fax: [facility] Medical Group Referral ID Status Reason Start Date Expiration Date Visits Re quested Visits Authorized [id number] Closed 03/30/2021 04/29/2022 1 1 Encounter Details Date Type Department Care Team (Latest Contact Info) Description 06/22/2021 7:45 AM MONTESSORI TODDLER TEACHER Ancillary Procedure [facility] Medical Group Cardiology [address] [place] [phone] Palpitations; PAT (paroxysmal atrial tachycardia) (CMS/HCC) [...] on file Legal Sex Female 11:00 AM MONTESSORI TODDLER TEACHER Gender Identity Not on file Sexual Orientation Not on file documented as of this encounter Plan of Treatment Not on file documented as of this encounter Procedures Procedure Name Priority Date/Time Associated Diagnosis Comments DEVICE CHECK - REMOTE Routine 06/22/2021 12:21 PM MONTESSORI TODDLER TEACHER Palpitations PAT (paroxysmal atrial tachycardia) (CMS/HCC) (HCC) documented in this encounter Results * DEVICE CHECK - REMOTE (06/22/2021 12:21 PM MONTESSORI TODDLER TEACHER) Anatomical Region Laterality Modality Other Narrative 07/15/2021 8:21 AM MONTESSORI TODDLER TEACHER Medtronic LINQ ILR implanted for Palpitations/PAT on 03/17/2020. ??Nany (Imp ) ??Jana (Card - follows) - Carelink. ?? Routine remote. Normal device function. Battery function-Ok. ?? Presenting rhythm-VS, regular 54 bpm. Medications; no cardiac meds listed. ?? No auto or patient recorded episodes noted. See scanned report. ?? Carelink remote f/u 08/03/2021. Neil Bates MD CV CARDIAC SERVICES PROCEDURES F inal Result documented in this encounter Visit Diagnoses Diagnosis Palpitations PAT (paroxysmal atrial tachycardia) (HCC) Paroxysmal supraventricular tachycardia Status post placement of implantable loop recorder documented in this encounter Care Teams Drawing Hand Relationship Specialty Start Date End Date Michael Sherman MD [address] [place] [address] PCP - General 01/28/17 Neil Bates MD [address] [facility] [address] [place] [address] Consulting Physician Cardiology 03/17/20 documented as of this encounter
--- OUTSIDE RECORDS SUMMARY | 2024-08-24 04:34 | XMS_ITS | Encounter Summary ---
Author Organization [facility] Medical Group Address [address] [address] Care Team Providers Care Saw Filer Name Role Phone Michael Sherman MD Primary Care Prov ider Neil Bates MD Unavailable Reason for Visit * Cardiology (Routine) - Closed Specialty Diagnoses / Procedures Referred By Contac t Referred To Contact Diagnoses Palpitations PSVT (paroxysmal supraventricular tachycardia) (HCC) PAT (paroxysmal atrial tachycardia) (HCC) Procedures DEVICE CHECK - REMOTE Neil Bates MD [address] [place] [address] Phone: tel: fax: [facility] Medical Group Referral ID Status Reason Start Date Expiration Date Visits Re quested Visits Authorized [id number] Closed 03/01/2022 09/01/2023 1 1 Encounter Details Date Type Department Care Team (Latest Contact Info) Description 09/28/2022 7:00 AM CLOTH FRAMER Ancillary Procedure [facility] Medical [facility] Cardiology [address] [place] [phone] Status post placement of implantable loop recorder [Z95.818 (ICD-10-CM)] (Primary Dx); Palpitations; PSVT (paroxysmal supraventricular tachycardia) (CMS/HCC) (HCC); PAT (paroxysmal atrial tachycardia) (CMS/HCC) ([facility]) Social History Tobacco Use Types Packs/Day Years Used Date Smoking Tobacco: Never Smokeless Tobacco: Never Alcohol Use Standard Drinks/Week Comments No 0 (1 standard drink = 0.6 oz pur e alcohol) Comments No Sex and Gender Information Value Date Recorded Sex Assigned at Not on file Legal Sex Female 11:00 AM CLOTH FRAMER Gender Identity Not on file Sexual Orientation Not on file documented as of this encounter Plan of Treatment Not on file documented as of this encounter Procedures Procedure Name Priority Date/Time Associated Diagnosis Comments DEVICE CHECK - REMOTE Routine 09/28/2022 8:29 AM CLOTH FRAMER Palpitations PSVT (paroxysmal supraventricular tachycardia) (CMS/HCC) (HCC) PAT (paroxysmal atrial tachycardia) (CMS/HCC) ([facility]) documented in this encounter Results * DEVICE CHECK - REMOTE (09/28/2022 8:29 AM CLOTH FRAMER) Anatomical Region Laterality Modality Other Narrative 12/03/2022 1:38 PM CDT Medtronic LINQ ILR implanted for Palpitations/PAT on 03/17/2020. ??Nany (Imp ) ??Jana (Card - follows) - Carelink. Routine ILR remote. Normal device function. Battery function-Ok. Presenting rhythm-VS, regular 60 bpm. Medications; Diltiazem, ASA 81 mg. 1-Tachy episode recorded on 09/03/2022, egm suggestive of ST-SVT, 167 bpm, 10 second duration noted. See scanned report. Carelink remote f/u 11/08/2022. Elise Knowles, RN us Neil Bates MD CV CARDIAC SERVICES PROCEDURES F inal Result documented in this encounter Visit Diagnoses Diagnosis Status post placement of implantable loop recorder [Z95.818 (ICD-10-CM)]- Primary Palpitations PSVT (paroxysmal supraventricular tachycardia) (HCC) Paroxysmal supraventricular tachycardia PAT (paroxysmal atrial tachycardia) ([facility]) Paroxysmal supraventricular tachycardia documented in this encounter Care Teams Saw Filer Relationship Specialty Start Date End Date Michael Sherman MD [address] [place] [address] PCP - General 01/28/17 Neil Bates MD [address] [id number] Consulting Physician Cardiology 03/17/20 documented as of this encounter
--- OUTSIDE RECORDS SUMMARY | 2024-08-24 04:34 | XMS_ITS | Encounter Summary ---
Author Organization [facility] Medical Group Address [address] [facility] [address] [place] [address] Care Team Providers Care Tech Writer Name Role Phone Michael Sherman MD Primary Care Prov ider Neil Bates MD Unavailable Encounter Details Date Type Department Care Team (Late st Contact Info) Description 07/13/2022 Telephone [facility] Cardiology [address] [facility] [address] [place] [address] Neil Bates MD [address] [address] Social History Tobacco Use Types Packs/Day Years Used Date Smoking Tobacco: Never Smokeless Tobacco: Never Alcohol Use Standard Drinks/Week Comments No 0 (1 standard drink = 0.6 oz pur e alcohol) Comments No Sex and Gender Information Value Date Recorded Sex Assigned at Not on file Legal Sex Female 11:00 AM CLEANER HOUSEKEEPING Gender Identity Not on file Sexual Orientation Not on file documented as of this encounter Miscellaneous Notes * Telephone Encounter - Kera Fleiz MA - 07/14/2022 2:52 PM CST noted NER HOUSEKEEPING * Telephone Encounter - Elise Knowles RN - 07/13/2022 3:55 PM CST [facility]. NER HOUSEKEEPING * Telephone Encounter - Elise Knowles RN - 07/13/2022 2:53 PM CST Noted, thank you. NER HOUSEKEEPING * Telephone Encounter - Dunia Bolanos RN - 07/13/2022 2:45 PM CST Per below, I advised pt to call [facility]. She said she did and they said it would be ok as long asour literacy tutor was ok and aware it would make noise on the devise during the test. Letting Elise know she is scheduled for the test on TuesdayJul 19 at 1 pm in case there are any unusual readings during that time. NER HOUSEKEEPING * Telephone Encounter - Sekou Reyes - 07/13/2022 2:25 PM CST Pt called asking if ok to have a EMG study on her arms(pt has a loop recorder) sched Tuesday Contact:[phone] NER HOUSEKEEPING documented in this encounter Plan of Treatment Not on file documented as of this encounter Visit Diagnoses Not on filedocumented in this encounter Care Teams Tech Writer Relationship Specialty Start Date End Date Michael Sherman MD [address] [place] [address] PCP - General 01/28/17 Neil Bates MD [address] [address] Consulting Physician Cardiology 03/17/20 documented as of this encounter
--- OUTSIDE RECORDS SUMMARY | 2024-08-24 04:34 | XMS_ITS | Encounter Summary ---
Author Organization [facility] Address [address] [facility] [address] [place] [address] Care Team Providers Care Snaker Driving Horses Name Role Phone Michael Sherman MD Primary Care Prov ider Neil Bates MD Unavailable Encounter Details Date Type Department Care Team (Late st Contact Info) Description 09/29/[address] [facility] Medical [facility] Cardiology [address] [facility] [address] [place] [address] Neil Bates MD [address] [address] Social History Tobacco Use Types Packs/Day Years Used Date Smoking Tobacco: Never Smokeless Tobacco: Never Alcohol Use Standard Drinks/Week Comments No 0 (1 standard drink = 0.6 oz pur e alcohol) Comments No Sex and Gender Information Value Date Recorded Sex Assigned at Not on file Legal Sex Female 11:00 AM PRIVATE EQUITY ANALYST Gender Identity Not on file Sexual Orientation Not on file documented as of this encounter Miscellaneous Notes * Telephone Encounter - Dunia Bolanos RN - 09/29/2022 4:06 PM CST Spoke with pt who is concerned about her pulmonary HTN dz. She is not sure what should be done nextabout that. She is seeing [facility] on 10.11. I advised her to discuss with them at that appt and if she has any questions after that to callus back then. Ailyn sanabria also reviewed. ATE EQUITY ANALYST * Telephone Encounter - Archie Applea - 09/29/2022 3:50 PM CST Pt requesting call to discuss 09/24 echo results. Contact: ATE EQUITY ANALYST documented in this encounter Plan of Treatment Not on file documented as of this encounter Visit Diagnoses Not on filedocumented in this encounter Care Teams Snaker Driving Horses Relationship Specialty Start Date End Date Michael Sherman MD [address] [place] [address] PCP - General 01/28/17 Neil Bates MD [address] [address] Consulting Physician Cardiology 03/17/20 documented as of this encounter
--- OUTSIDE RECORDS SUMMARY | 2024-08-24 04:34 | XMS_ITS | Encounter Summary ---
Author Organization [facility] Address [address] [address] Care Team Providers Care Hadoop Engineer Name Role Phone Michael Sherman MD Primary Care Prov ider Neil Bates MD Unavailable Reason for Visit * Cardiology (Routine) - Closed Specialty Diagnoses / Procedures Referred By Contac t Referred To Contact Diagnoses Palpitations PAT (paroxysmal atrial tachycardia) (HCC) Procedures DEVICE CHECK - REMOTE Neil Bates MD [address] [place] [address] Phone: tel: fax: [facility] Referral ID Status Reason Start Date Expiration Date Visits Re quested Visits Authorized [id number] Closed 03/30/2021 04/29/2022 1 1 Encounter Details Date Type Department Care Team (Latest Contact Info) Description 09/14/2021 7:15 AM ADULT AND PEDIATRIC NEUROLOGIST Ancillary Procedure [facility] Cardiology [address] [place] [phone] Palpitations; PAT (paroxysmal atrial tachycardia) (CMS/HCC) [...] on file Legal Sex Female 11:00 AM ADULT AND PEDIATRIC NEUROLOGIST Gender Identity Not on file Sexual Orientation Not on file documented as of this encounter Plan of Treatment Not on file documented as of this encounter Procedures Procedure Name Priority Date/Time Associated Diagnosis Comments DEVICE CHECK - REMOTE Routine 09/15/2021 9:41 AM ADULT AND PEDIATRIC NEUROLOGIST Palpitations PAT (paroxysmal atrial tachycardia) (CMS/HCC) (HCC) documented in this encounter Results * DEVICE CHECK - REMOTE (09/15/2021 9:41 AM ADULT AND PEDIATRIC NEUROLOGIST) Anatomical Region Laterality Modality Other Narrative 11/09/2021 8:22 AM CDT Medtronic LINQ ILR implanted for Palpitations/PAT on 03/17/2020. ??Nany ([facility] ) ??Jana (Card - follows) - Carelink. ?? Routine remote. Normal device function. Battery function-Ok. ?? Presenting rhythm-VS, regular 68 bpm. Medications; no cardiac meds listed. ?? No auto or patient recorded episodes noted. See scanned report. ?? Carelink remote f/u 10/26/2021. Neil Bates MD CV CARDIAC SERVICES PROCEDURES F inal Result documented in this encounter Visit Diagnoses Diagnosis Palpitations PAT (paroxysmal atrial tachycardia) (HCC) Paroxysmal supraventricular tachycardia Status post placement of implantable loop recorder documented in this encounter Care Teams Hadoop Engineer Relationship Specialty Start Date End Date Michael Sherman MD [address] [place] [address] PCP - General 01/28/17 Neil Bates MD [address] [facility] [address] [place] [address] Consulting Physician Cardiology 03/17/20 documented as of this encounter
--- OUTSIDE RECORDS SUMMARY | 2024-08-24 04:34 | XMS_ITS | Encounter Summary ---
Author Organization [facility] Medical Group Address [address] [address] Care Team Providers Care Tissue Rewinder Name Role Phone Michael Sherman MD Primary Care Prov ider Neil Bates MD Unavailable Reason for Visit * (Routine) - Closed Specialty Diagnoses / Procedures Referred By Contac t Referred To Contact Diagnoses Palpitations PAT (paroxysmal atrial tachycardia) (HCC) Status post placement of implantable loop recorder Procedures DEVICE CHECK - REMOTE Neil Bates MD [address] [place] [address] Phone: tel: fax: [facility] Group Referral ID Status Reason Start Date Expiration Date Visits Re quested Visits Authorized [id number] Closed 03/18/2020 04/17/2021 1 1 Encounter Details Date Type Department Care Team (Latest Contact Info) Description 09/01/2020 8:45 AM VAN CDL DRIVER Ancillary Procedure [facility] Medical [facility] Cardiology [address] [place] [phone] Palpitations; PAT (paroxysmal atrial tachycardia) (CMS/HCC); Status post placement of implantable loop recorder Social History Tobacco Use Types Packs/Day Years Used Date Smoking Tobacco: Never Smokeless Tobacco: Never Alcohol Use Standard Drinks/Week Comments No 0 (1 standard drink = 0.6 oz pur e alcohol) Comments No Sex and Gender Information Value Date Recorded Sex Assigned at Not on file Legal Sex Female 11:00 AM VAN CDL DRIVER Gender Identity Not on file Sexual Orientation Not on file documented as of this encounter Progress Notes * Elise Knowles RN - 09/01/2020 8:45 AM CST Medtronic LINQ ILR implanted for Palpitations/PAT on 03/17/2020. Nany (Dudley CHAMPAGNE) Jana (Card - follows) - [facility]. Routine remote. Normal device function. Battery function-Ok. Presenting rhythm-VS, regular. Medications; no cardiac meds listed. 3-Symptom episodes recorded, (2) iegm's SR. See scanned report. [facility]link remote f/u 10/13/2020. CDL DRIVER documented in this encounter Plan of Treatment Not on file documented as of this encounter Procedures Procedure Name Priority Date/Time Associated Diagnosis Comments DEVICE CHECK - REMOTE Routine 09/01/2020 3:15 PM VAN CDL DRIVER Palpitations PAT (paroxysmal atrial tachycardia) (CMS/HCC) Status post placement of implantable loop recorder documented in this encounter Results * DEVICE CHECK - REMOTE (09/01/2020 3:15 PM VAN CDL DRIVER) Anatomical Region Laterality Modality Other Narrative 10/08/2020 8:35 AM VAN CDL DRIVER Medtronic LINQ ILR implanted for Palpitations/PAT on 03/17/2020. ??Nany (Dudley CHAMPAGNE) ??Jana (Card - follows) - Carelink. ?? Routine remote. Normal device function. Battery function-Ok. Presenting rhythm-VS, regular. Medications; no cardiac meds listed. 3-Symptom episodes recorded, (2) iegm's SR. See scanned report. [facility]link remote f/u 10/13/2020. Neil Bates MD CV CARDIAC SERVICES PROCEDURES F inal Result documented in this encounter Visit Diagnoses Diagnosis Palpitations PAT (paroxysmal atrial tachycardia) (HCC) Paroxysmal supraventricular tachycardia Status post placement of implantable loop recorder documented in this encounter Care Teams Tissue Rewinder Relationship Specialty Start Date End Date Michael Sherman MD [address] [place] [address] PCP - General 01/28/17 Neil Bates MD [address] [address] Consulting Physician Cardiology 03/17/20 documented as of this encounter
--- OUTSIDE RECORDS SUMMARY | 2024-08-24 04:34 | XMS_ITS | Encounter Summary ---
Author Organization [facility] Address [address] [facility] [address] [place] [address] Phone Care Team Providers Care Focuser Name Role Phone Michael Sherman MD Primary Care Prov ider Neil Bates MD Unavailable Reason for Visit * Consultation (Routine) - Closed Specialty Diagnoses / Procedures Referred By Chelsy herbert Referred To Contact Pulmonary Disease / Pulmonology Diagnoses Asthma-COPD overlap syndrome (HCC) Michael Sherman MD [address] [place] [address] Phone: tel: fax: [facility] (All Locations) Referral ID Status Reason Start Date Expiration Date V isits Requested Visits Authorized [id number] Closed Specialty Services Required 10/08/2022 11/07/2023 1 12 Encounter Details Date Type Department Care Team (Late st Contact Info) Description 10/11/2022 2:30 PM RADAR AIR TRAFFIC CONTROLLER Office Visit [facility] Pulmonary [address] [facility] [address] [place] [address] Bi Ware MD [address] [facility] [address] [place] [address] Moderate persistent asthma, unspecified whether complicated (Primary Dx); Asthma-COPD overlap syndrome (CMS/HCC) (HCC); Allergic rhinitis, unspecified seasonality, unspecified trigger Social [...] on file Legal Sex Female 11:00 AM RADAR AIR TRAFFIC CONTROLLER Gender Identity Not on file Sexual Orientation Not on file documented as of this encounter Last Filed Vital Signs Vital Sign Reading Time Taken Comments Blood Pressure 124/79 10/11/2022 1:21 PM RADAR AIR TRAFFIC CONTROLLER Pulse 66 10/11/2022 1:21 PM RADAR AIR TRAFFIC CONTROLLER Temperature 36.8 ??C (98.3 ??F) 10/11/2022 1:21 PM CS T Respiratory Rate 18 10/11/2022 1:21 PM RADAR AIR TRAFFIC CONTROLLER Oxygen Saturation 99% 10/11/2022 1:21 PM RADAR AIR TRAFFIC CONTROLLER Inhaled Oxygen Concentration - - Weight 66.2 kg (146 lb) 10/11/2022 1:21 PM RADAR AIR TRAFFIC CONTROLLER Height 177.8 cm (5' 10 ) 10/11/2022 1:21 PM RADAR AIR TRAFFIC CONTROLLER Body Mass Index 20.95 10/11/2022 1:21 PM RADAR AIR TRAFFIC CONTROLLER documented in this encounter Patient Instructions * Patient Instructions* Bi Ware MD - 10/11/2022 2:30 PM RADAR AIR TRAFFIC CONTROLLER Start Spiriva one puff daily Continue Advair Resume a regular exercise program R AIR TRAFFIC CONTROLLER R AIR TRAFFIC CONTROLLER documented in this encounter Ordered Prescriptions Prescription Sig Dispense Quantity Refills Last Filled Start Date End Date tiotropium (Spiriva with HandiHaler) 18 mcg per inhalation capsule Place 1 puff (1 capsule total) into inhaler and inhale daily 30 capsule 11 10/11/2022 4 documented in this encounter Progress Notes * Bi Ware MD - 10/11/2022 12:00 AM CST PATIENT NAME: YANE FAGAN : 1960 GLEN: 10/11/2022 CHIEF COMPLAINT: Follow-up of asthma/chronic obstructive pulmonary disease. PROBLEM LIST: 1. Moderate persistent asthma, with [...] of metoprolol. INTERVAL HISTORY: Yane returns for follow-up today. She has a history of asthma/COPD overlap and allergic rhinitis. She was last seen approximately 1 year ago. She notes in the interim, that her symptoms have been worse. She notes over the winter, likely due to the cold weather, she has had more difficulty breathing. She has been more sedentary as well. She notes she has had to use albuterol more. She is compliant with her Advair. She notes some swelling in her legs and hands, which has been on and off. She contacted her tennis court attendant about this and had an echocardiogram ordered, which showed mild left atrial enlargement, but was otherwise unremarkable. She reports that she was referred to see an data integrity analyst as well, given her history of palpitations. She has not had any exacerbations of her asthma requiring prednisone, however, she feels as though her breathing is worse today and in general she has worse control of symptoms than she did when she was seen by us a year ago. No fevers, chills, or night sweats. No hemoptysis. Her weight has been stable. REVIEW OF SYSTEMS: Reviewed as per History of Present Illness, all systems negative unless otherwise specified. CURRENT MEDICATIONS: 1. Multivitamin daily. 2. Singulair 10 mg daily. 3. Loratadine 10 mg daily. 4. Advair 500/50 one puff b.i.d. 5. Aspirin 81 mg daily. 6. Albuterol 2 puffs q. 6 hours p.r.n. PHYSICAL EXAMINATION: Vital Signs: Blood pressure 124/79, pulse 66, respiratory rate 18, temperature 36.8, oxygen saturation 99% on room air. Weight is 146 pounds. Height is 5 feet 10 inches. BMI is 21. General: No acute distress. Seated, conversant. HEENT: PERRL. OP clear. MMM. Neck: Supple, nontender. No lymphadenopathy. No masses. Cardiovascular: RRR, no M/R/G, normal S1, S2. Lungs: Clear, unlabored. No wheezing, rales, or rhonchi. Extremities: Warm and well-perfused. There is no clubbing, cyanosis or edema. DATA: Spirometry today shows an FEV1 of 1.82 L, or 62% of predicted. FVC is 2.83 L, or 75% of predicted. FEV1/FVC ratio is 65%. This represents moderate obstruction. When compared to previous spirometry from a year ago, the FEV1 is stable and the FVC has decreased. ASSESSMENT/DIAGNOSES: 1. Moderate persistent asthma. 2. Allergic rhinitis. 3. Asthma/chronic obstructive pulmonary disease overlap. 4. History of lung cancer resected in 2009. PLAN: 1. Yane's symptoms are not well-controlled today. We will have her continue Wixela and add Spiriva once daily. She was previously on Spiriva and tolerated this well. 2. She will continue albuterol p.r.n. 3. She will continue Singulair and Claritin for allergic rhinitis. 4. She has been quite inactive lately and we encouraged her to begin a regular walking exercise program. This would be important for her asthma, as well as both her physical and mental health. 5. Follow-up will be in 6 months with repeat spirometry. Bi Ware M.D. Pulmonary and Critical Care Medicine GUERO/shanta R AIR TRAFFIC CONTROLLER documented in this encounter Plan of Treatment Not on file documented as of this encounter Visit Diagnoses Diagnosis Moderate persistent asthma, unspecified whether complicated- Primary Asthma-COPD overlap syndrome (HCC) Allergic rhinitis, unspecified seasonality, unspecified trigger documented in this encounter Historical Medications * This list may reflect changes made after this encounter. fluticasone propion/salmetero l (ADVAIR HFA INHAL) Inhale 2 (two) times a day 03/13/2024 added in this encounter Orders Outpatient Referral Count Last Ordered Date Fir st Ordered Date AMB REFERRAL TO PULMONOLOGY 1 10/11/2022 documented in this encounter Care Teams Focuser Relationship Specialty Start Date End Date Michael Sherman MD [address] [place] [address] PCP - General 01/28/17 Neil Bates MD [address] [address] Consulting Physician Cardiology 03/17/20 documented as of this encounter
--- OUTSIDE RECORDS SUMMARY | 2024-08-24 04:34 | XMS_ITS | Encounter Summary ---
Author Organization [facility] Medical Group Address [address] [address] Care Team Providers Care Sourcing Assistant Name Role Phone Michael Sherman MD Primary Care Prov ider Neil Bates MD Unavailable Reason for Visit * Cardiology (Routine) - Closed Specialty Diagnoses / Procedures Referred By Contac t Referred To Contact Diagnoses Palpitations PAT (paroxysmal atrial tachycardia) ([facility]) Procedures DEVICE CHECK - REMOTE Neil Bates MD [address] [place] [phone] Phone: tel: fax: [facility] Medical Group Referral ID Status Reason Start Date Expiration Date Visits Re quested Visits Authorized [id number] Closed 09/28/2022 03/28/2024 1 1 Encounter Details Date Type Department Care Team (Latest Contact Info) Description 03/21/2023 7:30 AM CDT Ancillary Procedure [facility] Medical [facility] Cardiology [address] [place] [phone] Status post placement of implantable loop recorder (Primary Dx); Palpitations; PAT (paroxysmal atrial tachycardia) (CMS/HCC) (HCC) [...] on file Legal Sex Female 11:00 AM DIRECTOR OF DEVELOPMENT Gender Identity Not on file Sexual Orientation Not on file documented as of this encounter Plan of Treatment Not on file documented as of this encounter Procedures Procedure Name Priority Date/Time Associated Diagnosis Comments DEVICE CHECK - REMOTE Routine 03/21/2023 3:08 PM CDT Palpitations PAT (paroxysmal atrial tachycardia) (CMS/HCC) (HCC) documented in this encounter Results * DEVICE CHECK - REMOTE (03/21/2023 3:08 PM CDT) Anatomical Region Laterality Modality Other Narrative 04/11/2023 8:39 AM CDT GuidePaltronic REVEAL LinQ implanted March 17, 2020 for AF management. Patient had a routine Carelink remote transmission of their implantable loop recorder on 03/21/2023. Medications; Diltiazem, ASA 81 mg. Interrogation of the patients device demonstrates that the Linq is functioning appropriately ?? (0) Symptom events (0) Device detected events of bradycardia, Tachycardia, Pause, or AT/AF Presenting Rhythm: Sinus bradycardia @ 58 bpm Battery: OK Plan: 1) Routine Remote with no new event. 2) Continue to monitor remotely. Alessio Pemberton Device Wild Life Manager us Neil Bates MD CV CARDIAC SERVICES PROCEDURES F inal Result documented in this encounter Visit Diagnoses Diagnosis Status post placement of implantable loop recorder- Primary Palpitations PAT (paroxysmal atrial tachycardia) (HCC) Paroxysmal supraventricular tachycardia documented in this encounter Care Teams Sourcing Assistant Relationship Specialty Start Date End Date Michael Sherman MD [address] [place] [address] PCP - General 01/28/17 Neil Bates MD [address] [facility] [address] [place] [phone] Consulting Physician Cardiology 03/17/20 documented as of this encounter
--- OUTSIDE RECORDS SUMMARY | 2024-08-24 04:34 | XMS_ITS | Encounter Summary ---
Author Organization [facility] Medical Group Address [address] [facility] [address] [place] [address] Care Team Providers Care Instructional Leader Name Role Phone Michael Sherman MD Primary Care Prov ider Neil Bates MD Unavailable Reason for Visit * Cardiology (Routine) - Closed Specialty Diagnoses / Procedures Referred By Contac t Referred To Contact Diagnoses Palpitations PSVT (paroxysmal supraventricular tachycardia) (HCC) PAT (paroxysmal atrial tachycardia) (HCC) Procedures DEVICE CHECK - REMOTE Neil Bates MD [address] [place] [address] Phone: tel: fax: [facility] Medical Group Referral ID Status Reason Start Date Expiration Date Visits Re quested Visits Authorized [id number] Closed 03/01/2022 09/01/2023 1 1 Encounter Details Date Type Department Care Team (Latest Contact Info) Description 11/08/2022 7:15 AM CDT Ancillary Procedure 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 Gender Identity Not on file Sexual Orientation Not on file documented as of this encounter Plan of Treatment Not on file documented as of this encounter Procedures Procedure Name Priority Date/Time Associated Diagnosis Comments DEVICE CHECK - REMOTE Routine 11/08/2022 4:28 PM CDT Palpitations PSVT (paroxysmal supraventricular tachycardia) (CMS/HCC) (HCC) PAT (paroxysmal atrial tachycardia) (CMS/HCC) ([facility]) documented in this encounter Results * DEVICE CHECK - REMOTE (11/08/2022 4:28 PM CDT) Anatomical Region Laterality Modality Other Narrative 12/03/2022 1:38 PM CDT Medtronic LINQ ILR implanted for Palpitations/PAT on 03/17/2020. ??Nany (Dudley CHAMPAGNE) ??Jana (Card - follows) - [facility]link. Routine ILR remote. Normal device function. Battery function-Ok. Presenting rhythm-VS, regular 74 bpm. Medications; Diltiazem, ASA 81 mg. No auto or patient recorded events noted. See scanned report. Carelink remote f/u 12/20/2022. Elies Knowles, RN us Neil Bates MD CV CARDIAC SERVICES PROCEDURES F inal Result documented in this encounter Visit Diagnoses Diagnosis Status post placement of implantable loop recorder [Z95.818 (ICD-10-CM)]- Primary Palpitations PSVT (paroxysmal supraventricular tachycardia) (HCC) Paroxysmal supraventricular tachycardia PAT (paroxysmal atrial tachycardia) ([facility]) Paroxysmal supraventricular tachycardia documented in this encounter Care Teams Instructional Leader Relationship Specialty Start Date End Date Michael Sherman MD [address] [place] [address] PCP - General 01/28/17 Neil Bates MD [address] [place] [phone] Consulting Physician Cardiology 03/17/20 documented as of this encounter
--- OUTSIDE RECORDS SUMMARY | 2024-08-24 04:34 | XMS_ITS | Encounter Summary ---
Author Organization [facility] Address [address] [facility] [address] [place] [address] Care Team Providers Care Director Of Maternity Services Name Role Phone Michael Sherman MD Primary Care Prov ider Chandler Mancilla MD Unavailable Reason for Visit * Cardiology (Routine) - Closed Specialty Diagnoses / Procedures Referred By Contac t Referred To Contact Diagnoses Pulmonary hypertension (HCC) Procedures Transthoracic Echo (TTE) Complete W Doppler/CF Chandler Mancilla MD [address] [address] Phone: tel: fax: [facility] Referral ID Status Reason Start Date Expiration Date Visits Re quested Visits Authorized [id number] Closed 08/18/2022 09/17/2023 1 1 Encounter Details Date Type Department Care Team (Latest Contact Info) Description 09/24/2022 3:00 PM DAY CARE WORKER Ancillary Procedure [facility] Cardiology [address] [facility] [address] [place] [address] Pulmonary hypertension (CMS/HCC) (HCC) Social History Tobacco Use Types Packs/Day Years Used Date Smoking Tobacco: Never Smokeless Tobacco: Never Alcohol Use Standard Drinks/Week Comments No 0 (1 standard drink = 0.6 oz pur e alcohol) Comments No Sex and Gender Information Value Date Recorded Sex Assigned at Not on file Legal Sex Female 11:00 AM DAY CARE WORKER Gender Identity Not on file Sexual Orientation Not on file documented as of this encounter Plan of Treatment Not on file documented as of this encounter Procedures Procedure Name Priority Date/Time Associated Diagnosis Comments TRANSTHORACIC ECHO (TTE) COMPLETE W DOPPLER/CF Routine 09/24/2022 3:19 PM DAY CARE WORKER Pulmonary hypertension (CMS/HCC) (HCC) documented in this encounter Results * Transthoracic Echo (TTE) Complete W Doppler/CF (09/24/2022 3:19 PM DAY CARE WORKER) Anatomical Region Laterality Modality Ultrasound 09/24/2022 3:19 PM DAY CARE WORKER Narrative 09/24/2022 4:09 PM DAY CARE WORKER [facility] Cardiology [address] [facility] [address], [place] [address] [address] [facility] [address], [place] [address] P:[phone] P:[phone] Echocardiographic Report Patient Name: YANE FAGAN : 1960 Study Date: 09/24/2022 3:19:34 PM Gender: F Tech: Location: [place] Ref.Provider: CHANDLER MANCILLA Height(Cm): 178 BSA: 1.79 Weight(Kg): 64.9 Heart Rate: 68 BP: 124/66 Quality: Good Order Provider: CHANDLER MANCILLA Procedures: Echocardiographic Report: Transthoracic echocardiogram with complete 2D, M-Mode, and color Doppler examination. With Strain Analysis. Indications: Pulmonary Hypertension. Measurements: 2D/M Mode ?Doppler ? Measurement ?Value ?Normal Range ? Measurement ?Value ?Normal Range ? EF Mod ? 77 ?AV Mean PG ? 4 ?mmHg ? EF Teich MM ?79 ? [ 55 - 70 ] % ?AV Peak Leon ?1.33 ? m/s ? LVIDd 2D ? 4.35 ? [ 3.90 - 5.30 ] cm ? AV Peak PG ? 7 ?mmHg ? LVIDd MM ? 4.11 ? [ 3.90 - 5.30 ] cm ? AV VTI ? 30.48 ?cm ? LVIDs 2D ? 3.45 ? [ 2.30 - 3.90 ] cm ? LVOT Peak Leon ?1.01 ? [ 0.70 - 1.10 ] m/s ? LVIDs MM ? 2.17 ? [ 2.30 - 3.90 ] cm ? LVOT VTI ? 21.48 ?cm ? LVPWd MM ? 0.86 ? [ 0.60 - 1.00 ] cm ? MV E Peak Leon ?0.87 ? [ 0.60 - 1.30 ] m/s ? IVSd 2D ?0.83 ? [ 0.60 - 0.90 ] cm ? MV A Peak Leon ?0.54 ? [ 0.40 - 0.80 ] m/s ? IVSd MM ?0.93 ? [ 0.60 - 0.90 ] cm ? MV Decel Time ?4 ?[ 150 - 200 ] msec ? LA Dimension MM ?3.56 ? [ 2.70 - 3.80 ] cm ? PV Peak Leon ?0.95 ? [ 0.40 - 0.80 ] m/s ? AoR Diam MM ?2.93 ? [ 2.60 - 3.70 ] cm ? TR Peak Leon ?2.49 ? [ 0.40 - 0.80 ] m/s ? LA Volume Index ?28.00 ?[ 16.00 - 28.00 ] cc/m2 ?TR Peak PG ? 25 ? mmHg ? ACS MM ? 1.97 ? cm ? RVSP ? 33.00 ?mmHg ? E' ? 0.07 ? E/E' ? 12.00 ? Findings: Interpretation Site: Exam was interpreted at [facility]. Left Ventricle: Normal left ventricular systolic function. No focal wall motion abnormalities. Normal left ventricular size. Normal left ventricular wall thickness. Normal left ventricular diastolic function. Ejection fraction is visually estimated at >70 %. Ejection fraction is measured at 77 %. Global Longitudinal Strain is -18 %. Right Ventricle: Normal right ventricular size. Normal right ventricular systolic function. Left Atrium: There is mild enlargement of left atrium. Right Atrium: The right atrium is normal in size. Atrial Septum: Normal atrial septum. Mitral Valve: Normal appearance of the mitral valve. Trivial regurgitation of the mitral valve. There is no hemodynamically significant mitral stenosis by Doppler. Aortic Valve: No evidence of hemodynamically significant aortic stenosis by Doppler. Trileaflet aortic valve. No aortic regurgitation. Tricuspid Valve: Normal appearance of the tricuspid valve. Estimated peak RVSP is 33 mmHg. Mild tricuspid regurgitation. Pulmonic Valve: Pulmonic valve not well visualized. Trivial regurgitation in the pulmonic valve. Pericardium: Normal pericardium with no significant pericardial effusion. Aorta: Normal aortic root. IVC: Normal size and normal respiratory collapse consistent with normal right atrial pressure (<5 mmHg). Conclusions: Normal left ventricular systolic function. No focal wall [...] peak RVSP is 33 mmHg. Mild tricuspid regurgitation. Electronically Signed By: Jam Nunn MD 2022-09-24 16:09:45 DAY CARE WORKER Procedure Note Jam Nunn MD - 09/24/2022 [facility] Cardiology [address], [place] [address] [address], [place] [address] P:[phone] P:[phone] Echocardiographic Report Patient Name: XENIA FAGANEPatient ID: [id number] : [id number] Date: 09/24/2022 3:19:34 PM Gender: FAccession #: [id number] Tech: GMLocation: [place] Ref.Provider: CHANDLER MANCILLAHeight(Cm): 178 BSA: 1.79Weight(Kg): 64.9 Heart Rate: 68BP: 124/66 Quality: GoodOrder Provider: CHANDLER MANCILLA Procedures: Echocardiographic Report: Transthoracic echocardiogram with complete 2D, M-Mode, and color Dopplerexamination. With Strain Analysis. Indications: Pulmonary Hypertension. Measurements: 2D/M Mode Doppler Measurement Value Normal Range MeasurementValue Normal Range EF Mod 77 AV Mean PG 4mmHg EF Teich MM 79 [ 55 - 70 ] % AV Peak Vel1.33 m/s LVIDd 2D 4.35 [ 3.90 - 5.30 ] cm AV Peak PG 7mmHg LVIDd MM 4.11 [ 3.90 - 5.30 ] cm AV VTI30.48 cm LVIDs 2D 3.45 [ 2.30 - 3.90 ] cm LVOT Peak Vel1.01 [ 0.70 - 1.10 ] m/s LVIDs MM 2.17 [ 2.30 - 3.90 ] cm LVOT VTI21.48 cm LVPWd MM 0.86 [ 0.60 - 1.00 ] cm MV E Peak Vel0.87 [ 0.60 - 1.30 ] m/s IVSd 2D 0.83 [ 0.60 - 0.90 ] cm MV A Peak Vel0.54 [ 0.40 - 0.80 ] m/s IVSd MM 0.93 [ 0.60 - 0.90 ] cm MV Decel Time 4[ 150 - 200 ] msec LA Dimension MM 3.56 [ 2.70 - 3.80 ] cm PV Peak Vel0.95 [ 0.40 - 0.80 ] m/s AoR Diam MM 2.93 [ 2.60 - 3.70 ] cm TR Peak Vel2.49 [ 0.40 - 0.80 ] m/s LA Volume Index 28.00 [ 16.00 - 28.00 ] cc/m2 TR Peak PG 25mmHg ACS MM 1.97 cm RVSP33.00 mmHg E'0.07 E/E'12.00 Findings: Interpretation Site: Exam was interpreted at [facility]. Left Ventricle: Normal left ventricular systolic function. No focal wall motionabnormalities. Normal left ventricular size. Normal left ventricular wall thickness. Normal leftventricular diastolic function. Ejection fraction is visually estimated at >70 %.Ejection fraction is measured at 77 %. Global Longitudinal Strain is -18 %. Right Ventricle: Normal right ventricular size. Normal right ventricular systolicfunction. Left Atrium: There is mild enlargement of left atrium. Right Atrium: The right atrium is normal in size. Atrial Septum: Normal atrial septum. Mitral Valve: Normal appearance of the mitral valve. Trivial regurgitation of the mitralvalve. There is no hemodynamically significant mitral stenosis by Doppler. Aortic Valve: No evidence of hemodynamically significant aortic stenosis by Doppler.Trileaflet aortic valve. No aortic regurgitation. Tricuspid Valve: Normal appearance of the tricuspid valve. Estimated peak RVSP is 33 mmHg.Mild tricuspid regurgitation. Pulmonic Valve: Pulmonic valve not well visualized. Trivial regurgitation in the pulmonicvalve. Pericardium: Normal pericardium with no significant pericardial effusion. Aorta: Normal aortic root. IVC: Normal size and normal respiratory collapse consistent with normal rightatrial pressure (<5 mmHg). Conclusions: Normal left ventricular systolic function. No focal wall motionabnormalities. Normal left ventricular size. Normal left ventricular wall thickness. Normal leftventricular diastolic function. Ejection fraction is visually estimated at >70 %.Ejection fraction is measured at 77 %. Global Longitudinal Strain is -18 %. Normal right ventricular size. Normal right ventricular systolicfunction. There is mild enlargement of left atrium. Estimated peak RVSP is 33 mmHg. Mild tricuspid regurgitation. Electronically Signed By: Jam Nunn MD 2022-09-24 16:09:45 DAY CARE WORKER Chandler Mancilla MD CV ECHO PROCEDURES Final Result documented in this encounter Visit Diagnoses Diagnosis Pulmonary hypertension (HCC) Other chronic pulmonary heart diseases documented in this encounter Care Teams Director Of Maternity Services Relationship Specialty Start Date End Date Michael Sherman MD [address] [place] [address] PCP - General 01/28/17 Chandler Mancilla MD [address] [address] Consulting Physician Cardiology 03/17/20 documented as of this encounter
--- OUTSIDE RECORDS SUMMARY | 2024-08-24 04:34 | XMS_ITS | Encounter Summary ---
Author Organization [facility] Address [address] [address] Care Team Providers Care Lobster Man Name Role Phone Michael Sherman MD Primary Care Prov ider Neil Bates MD Unavailable Reason for Referral * Cardiology (Routine) - Closed Specialty Diagnoses / Procedures [facility] Referred To Contact Diagnoses Palpitations PAT (paroxysmal atrial tachycardia) (HCC) Procedures DEVICE CHECK - REMOTE Neil Bates MD [address] [address] Phone: tel: fax: [facility] Referral ID Status Reason Start Date Expiration Date Visits Re quested Visits Authorized [id number] Closed 12/18/2021 06/20/2023 1 1 * Cardiology (Routine) - Closed Specialty Diagnoses / Procedures Referred By Contac t Referred To Contact Diagnoses Palpitations PAT (paroxysmal atrial tachycardia) (HCC) Procedures DEVICE CHECK - REMOTE Neil Bates MD [address] [address] Phone: tel: fax: [facility] Referral ID Status Reason Start Date Expiration Date Visits Re quested Visits Authorized [id number] Closed 12/18/2021 06/20/2023 1 1 Encounter Details Date Type Department Care Team (Late st Contact Info) Description 12/18/2021 Orders Only [facility] Cardiology [address] [facility] [address], [place] [id number] Neil Bates MD [address] [place] [address] [address] [place] [address] Palpitations (Primary Dx); PAT (paroxysmal atrial tachycardia) ([facility]) ([facility]) Social History Tobacco Use Types Packs/Day Years Used Date Smoking Tobacco: Never Smokeless Tobacco: Never Alcohol Use Standard Drinks/Week Comments No 0 (1 standard drink = 0.6 oz pur e alcohol) Comments No Sex and Gender Information Value Date Recorded Sex Assigned at Not on file Legal Sex Female 11:00 AM METER SUPERVISOR Gender Identity Not on file Sexual Orientation Not on file documented as of this encounter Plan of Treatment Pending Results Name Type Priority Associated Diagnoses Date /Time DEVICE CHECK - REMOTE Cardiac Services Routine Palpitations PAT (paroxysmal atrial tachycardia) ([facility]) ([facility]) 08/17/2022 9:00 AM METER SUPERVISOR Scheduled Orders Name Type Priority Associated Diagnoses Orde r Schedule DEVICE CHECK - REMOTE Cardiac Services Routine Palpitations PAT (paroxysmal atrial tachycardia) ([facility]) Expected: 03/12/2022, Expires: 08/14/2026 documented as of this encounter Results * DEVICE CHECK - REMOTE (06/28/2022 3:11 PM METER SUPERVISOR) Anatomical Region Laterality Modality Other Narrative 08/20/2022 1:31 PM METER SUPERVISOR Medtronic LINQ ILR implanted for Palpitations/PAT [...] (paroxysmal atrial tachycardia) (HCC) Paroxysmal supraventricular tachycardia Palpitations PAT (paroxysmal atrial tachycardia) (HCC) Paroxysmal supraventricular tachycardia Status post placement of implantable loop recorder documented in this encounter Care Teams Lobster Man Relationship Specialty Start Date End Date Michael Sherman MD [address] [place] [address] PCP - General 01/28/17 Neil Bates MD [address] [address] Consulting Physician Cardiology 03/17/20 documented as of this encounter
--- OUTSIDE RECORDS SUMMARY | 2024-08-24 04:34 | XMS_ITS | Encounter Summary ---
Author Organization [facility] Address [address] [address] Care Team Providers Care Chief Deputy Court Clerk Name Role Phone Michael Sherman MD Primary Care Prov ider Neil Bates MD Unavailable Reason for Visit * Cardiology (Routine) - Closed Specialty Diagnoses / Procedures Referred By Contac t Referred To Contact Diagnoses Palpitations Procedures DEVICE CHECK - REMOTE Neil Bates MD [address] [place] [address] Phone: tel: fax: [facility] Referral ID Status Reason Start Date Expiration Date Visits Re quested Visits Authorized [id number] Closed 09/15/2021 03/15/2023 1 1 Encounter Details Date Type Department Care Team (Latest Contact Info) Description 01/18/2022 7:30 AM CDT Ancillary Procedure [facility] Cardiology [address] [place] [phone] Palpitations; PSVT (paroxysmal supraventricular tachycardia) (CMS/HCC) (HCC); Status post placement of implantable loop recorder Social History Tobacco Use Types Packs/Day Years Used Date Smoking Tobacco: Never Smokeless Tobacco: Never Alcohol Use Standard Drinks/Week Comments No 0 (1 standard drink = 0.6 oz pur e alcohol) Comments No Sex and Gender Information Value Date Recorded Sex Assigned at Not on file Legal Sex Female 11:00 AM DEVELOPMENT CONSULTANT Gender Identity Not on file Sexual Orientation Not on file documented as of this encounter Plan of Treatment Not on file documented as of this encounter Procedures Procedure Name Priority Date/Time Associated Diagnosis Comments DEVICE CHECK - REMOTE Routine 01/18/2022 1:30 PM CDT Palpitations documented in this encounter Results * DEVICE CHECK - REMOTE (01/18/2022 1:30 [...] in this encounter Visit Diagnoses Diagnosis Palpitations PSVT (paroxysmal supraventricular tachycardia) (HCC) Paroxysmal supraventricular tachycardia Status post placement of implantable loop recorder documented in this encounter Care Teams Chief Deputy Court Clerk Relationship Specialty Start Date End Date Michael Sherman MD [address] [place] [address] PCP - General 01/28/17 Neil Bates MD [address] [address] Consulting Physician Cardiology 03/17/20 documented as of this encounter
--- OUTSIDE RECORDS SUMMARY | 2024-08-24 04:34 | XMS_ITS | Encounter Summary ---
Author Organization [facility] Address [address] [address] Care Team Providers Care Extractor Operator Name Role Phone Michael Sherman MD Primary Care Prov ider Neil Bates MD Unavailable Reason for Visit * Cardiology (Routine) - Closed Specialty Diagnoses / Procedures Referred By Contac t Referred To Contact Diagnoses Palpitations Procedures DEVICE CHECK - REMOTE Neil Bates MD [address] [place] [address] Phone: tel: fax: [facility] Referral ID Status Reason Start Date Expiration Date Visits Re quested Visits Authorized [id number] Closed 07/28/2020 08/27/2021 1 1 Encounter Details Date Type Department Care Team (Latest Contact Info) Description 11/24/2020 7:45 AM CDT Ancillary Procedure [facility] Cardiology [address] [place] [phone] Palpitations; Status post placement of implantable loop recorder Social History Tobacco Use Types Packs/Day Years Used Date Smoking Tobacco: Never Smokeless Tobacco: Never Alcohol Use Standard Drinks/Week Comments No 0 (1 standard drink = 0.6 oz pur e alcohol) Comments No Sex and Gender Information Value Date Recorded Sex Assigned at Not on file 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 Nany (Dudley [place]AMP[place]NE) Jana (Card - follows) - [facility]. Routine remote. Normal device function. Battery function-Ok. Presenting rhythm-VS, regular. Medications; no cardiac meds listed. No auto or patient recorded episodes noted. See scanned report. [facility] remote f/u 01/05/2021. documented in this encounter Plan of Treatment Not on file documented as of this encounter Procedures Procedure Name Priority Date/Time Associated Diagnosis Comments DEVICE CHECK - REMOTE Routine 11/24/2020 2:07 PM CDT Palpitations documented in this encounter Results * DEVICE CHECK - REMOTE (11/24/2020 2:07 PM CDT) Anatomical Region Laterality Modality Other Narrative 01/21/2021 10:34 AM CDT Medtronic LINQ ILR implanted for Palpitations/PAT on 03/17/2020. ??Nany (Dudley CHAMPAGNE) ??Jana (Card - follows) - [facility]. Routine remote. Normal device function. Battery function-Ok. Presenting rhythm-VS, regular. Medications; no cardiac meds listed. No auto or patient recorded episodes noted. See scanned report. [facility] remote f/u 01/05/2021. Neil Bates MD CV CARDIAC SERVICES PROCEDURES F inal Result documented in this encounter Visit Diagnoses Diagnosis Palpitations Status post placement of implantable loop recorder documented in this encounter Care Teams Extractor Operator Relationship Specialty Start Date End Date Michael Sherman MD [address] [place] [address] PCP - General 01/28/17 Neil Bates MD [address] [place] [id number] Consulting Physician Cardiology 03/17/20 documented as of this encounter
--- OUTSIDE RECORDS SUMMARY | 2024-08-24 04:34 | XMS_ITS | Encounter Summary ---
Author Organization [facility] Address [address] [address] Care Team Providers Care General Teller Name Role Phone Michael Sherman MD Primary Care Prov ider Neil Bates MD Unavailable Reason for Referral * Cardiology (Routine) - Closed Specialty Diagnoses / Procedures [facility] Referred To Contact Diagnoses Palpitations PAT (paroxysmal atrial tachycardia) (HCC) Procedures DEVICE CHECK - REMOTE Neil Bates MD [address] [address] Phone: tel: fax: [facility] Referral ID Status Reason Start Date Expiration Date Visits Re quested Visits Authorized [id number] Closed 09/28/2022 03/28/2024 1 1 INSPECTOR * Cardiology (Routine) - Closed Specialty Diagnoses / Procedures Referred By Contac t Referred To Contact Diagnoses Palpitations PAT (paroxysmal atrial tachycardia) (HCC) Procedures DEVICE CHECK - REMOTE Neil Bates MD [address] [address] Phone: tel: fax: [facility] Referral ID Status Reason Start Date Expiration Date Visits Re quested Visits Authorized [id number] Closed 09/28/2022 03/28/2024 1 1 INSPECTOR * Cardiology (Routine) - Closed Specialty Diagnoses / Procedures Referred By Contac t Referred To Contact Diagnoses Palpitations PAT (paroxysmal atrial tachycardia) (HCC) Procedures DEVICE CHECK - REMOTE Neil Bates MD [address] [address] Phone: tel: fax: [facility] Referral ID Status Reason Start Date Expiration Date Visits Re quested Visits Authorized [id number] Closed 09/28/2022 03/28/2024 1 1 INSPECTOR * Cardiology (Routine) - Closed Specialty Diagnoses / Procedures Referred By Contac t Referred To Contact Diagnoses Palpitations PAT (paroxysmal atrial tachycardia) (HCC) Procedures DEVICE CHECK - REMOTE AR REM INTERROG SCRMS <30 D PHYS/QHP AR INTER DEVC REMOTE 30D Neil Bates MD [address] [address] Phone: tel: fax: [facility] Referral ID Status Reason Start Date Expiration Date Visits Re quested Visits Authorized [id number] Closed 09/28/2022 03/28/2024 1 1 INSPECTOR Encounter Details Date Type Department Care Team (Late st Contact Info) Description 09/28/2022 Orders Only [facility] Cardiology [address] [phone] [facility] [address] [address] Palpitations (Primary Dx); PAT (paroxysmal atrial tachycardia) (CMS/HCC) (HCC) Social History Tobacco Use Types Packs/Day Years Used Date Smoking Tobacco: Never Smokeless Tobacco: Never Alcohol Use Standard Drinks/Week Comments No 0 (1 standard drink = 0.6 oz pur e alcohol) Comments No Sex and Gender Information Value Date Recorded Sex Assigned at Not on file Legal Sex Female 11:00 AM SLAB INSPECTOR Gender Identity Not on file Sexual Orientation Not on file documented as of this encounter Plan of Treatment Not on file documented as of this encounter Results * DEVICE CHECK - REMOTE (05/02/2023 3:53 PM CDT) Anatomical Region Laterality Modality Other Narrative 05/06/2023 11:16 AM CDT Medtronic Reveal LINQ Loop Recorder implanted 17-Mar-2020 [...] inal Result * DEVICE CHECK - REMOTE (03/21/2023 3:08 PM CDT) Anatomical Region Laterality Modality Other Narrative 04/11/2023 8:39 AM CDT Medtronic REVEAL LinQ implanted March 17, [...] Continue to monitor remotely. Alessio Pemberton Device Adjunct Instructor Neil Bates MD CV CARDIAC SERVICES PROCEDURES F inal Result * DEVICE CHECK - REMOTE (01/31/2023 12:10 PM CDT) Anatomical Region Laterality Modality Other Narrative 03/18/2023 8:19 PM CDT Medtronic REVEAL LinQ implanted March 17, 2020 for AF management. Patient had a routine [facility] remote transmission of their implantable loop recorder on 01/31/2023. Medications; Diltiazem, ASA 81 mg. Interrogation of the patients device demonstrates that the Linq is functioning appropriately ?? (0) Symptom events (0) Device detected events of bradycardia, Tachycardia, Pause, or AT/AF Presenting Rhythm: Sinus rhythm @ 60 bpm Battery: OK Plan: 1) Routine Remote with no new event. 2) Continue to monitor remotely. Alessio Izabelnder Device Adjunct Instructor Neil Bates MD CV CARDIAC SERVICES PROCEDURES F inal Result * DEVICE CHECK - REMOTE (12/20/2022 4:19 [...] [facility] remote f/u 01/31/2023. Elise Knowles, RN Neil Bates MD CV CARDIAC SERVICES PROCEDURES F inal Result documented in this encounter Visit Diagnoses Diagnosis Palpitations- Primary PAT (paroxysmal atrial tachycardia) (HCC) Paroxysmal supraventricular tachycardia Status post placement of implantable loop recorder [Z95.818 (ICD-10-CM)]- Primary Palpitations PAT (paroxysmal atrial tachycardia) (HCC) Paroxysmal supraventricular tachycardia Status post placement of implantable loop recorder- Primary Palpitations PAT (paroxysmal atrial tachycardia) (HCC) Paroxysmal supraventricular tachycardia Status post placement of implantable loop recorder- Primary Palpitations PAT (paroxysmal atrial tachycardia) (HCC) Paroxysmal supraventricular tachycardia Palpitations PAT (paroxysmal atrial tachycardia) (HCC) Paroxysmal supraventricular tachycardia documented in this encounter Care Teams General Teller Relationship Specialty Start Date End Date Michael Sherman MD [address] [place] [address] PCP - General 01/28/17 Neil Bates MD [address] [address] Consulting Physician Cardiology 03/17/20 documented as of this encounter
--- OUTSIDE RECORDS SUMMARY | 2024-08-24 04:34 | XMS_ITS | Encounter Summary ---
Author Organization [facility] Address [address] [address] Care Team Providers Care Dobie Man Name Role Phone Michael Sherman MD Primary Care Prov ider Neil Bates MD Unavailable Reason for Visit * Cardiology (Routine) - Closed Specialty Diagnoses / Procedures Referred By Contac t Referred To Contact Diagnoses Palpitations Procedures DEVICE CHECK - REMOTE Neil Bates MD [address] [place] [address] Phone: tel: fax: [facility] Referral ID Status Reason Start Date Expiration Date Visits Re quested Visits Authorized [id number] Closed 12/01/2020 12/31/2021 1 1 Encounter Details Date Type Department Care Team (Latest Contact Info) Description 03/30/2021 7:45 AM CDT Ancillary Procedure 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 [facility] remote f/u 05/11/2021. us Neil Bates MD CV CARDIAC SERVICES PROCEDURES F inal Result documented in this encounter Visit Diagnoses Diagnosis Palpitations Status post placement of implantable loop recorder documented in this encounter Care Teams Dobie Man Relationship Specialty Start Date End Date Michael Sherman MD [address] [place] [address] PCP - General 01/28/17 Neil Bates MD [address] [facility] [address] [place] [address] Consulting Physician Cardiology 03/17/20 documented as of this encounter
--- OUTSIDE RECORDS SUMMARY | 2024-08-24 04:34 | XMS_ITS | Encounter Summary ---
Author Organization [facility] Address [address] [place] [address] Care Team Providers Care Supervisor Chassis Assembly Name Role Phone Michael Sherman MD Primary Care Prov ider Neil Bates MD Unavailable Reason for Visit * Reason Onset Date Comments Covid-19 Questions 02/23/2021 Encounter Details Date Type Department Care Team (Late st Contact Info) Description 02/23/2021 Telephone [facility] HealthCare/ Physicians [address] [place] [address] Candis Valerio RN Covid-19 Questions Social History Tobacco Use Types Packs/Day Years Used Date Smoking Tobacco: Never Smokeless Tobacco: Never Alcohol Use Standard Drinks/Week Comments No 0 (1 standard drink = 0.6 oz pur e alcohol) Comments No Sex and Gender Information Value Date Recorded Sex Assigned at Not on file Legal Sex Female 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 Her Fleet Maintenance Foreman is insistent that she gets vaccine and prefers at a hospital location. Pt is getting transportation set up and will call back if needs help making appt. Also told her to let us know so we can let site reliability engineer know to cheo aviles for her. * Telephone Encounter - Candis Valerio RN - 02/23/2021 1:04 PM CDT Attempt #1 to reach Yane K Hines who called through the [employer] with a clinical question. Left VM indicating we will make 1 more attempt. documented in this encounter Plan of Treatment Not on file documented as of this encounter Visit Diagnoses Not on filedocumented in this encounter Care Teams Supervisor Chassis Assembly Relationship Specialty Start Date End Date Michael Sherman MD [address] [place] [address] PCP - General 01/28/17 Neil Bates MD [address] [address] Consulting Physician Cardiology 03/17/20 documented as of this encounter
--- OUTSIDE RECORDS SUMMARY | 2024-08-24 04:34 | XMS_ITS | Encounter Summary ---
Author Organization [facility] Address [address] [facility] [address] [place] [address] Phone Care Team Providers Care Odd Job Worker Name Role Phone Michael Sherman MD Primary Care Prov ider Neil Bates MD Unavailable Reason for Referral * Procedure (Routine) - Closed Specialty Diagnoses / Procedures Referred By Chelsy herbert Referred To Contact Diagnoses Asthma-COPD overlap syndrome (HCC) Procedures Pulmonary Function Test -[facility]- [facility]; Spirometry, Oxygen Assessment Titration Bi Ware MD [facility] [address] [place] [address] Phone: tel: fax: Referral ID Status Reason Start Date Expiration Date Visits Re quested Visits Authorized [id number] Closed 08/19/2022 09/18/2023 1 1 D/OSTOMY NURSE Reason for Visit * Procedure (Routine) - Closed Specialty Diagnoses / Procedures Referred By Chelsy herbert Referred To Contact Diagnoses Asthma-COPD overlap syndrome (HCC) Procedures Pulmonary Function Test -[facility]- [facility]; Spirometry, Oxygen Assessment Titration Bi Ware MD [address] [facility] [place] [address] Phone: tel: fax: Referral ID Status Reason Start Date Expiration Date Visits Re quested Visits Authorized [id number] Closed 08/19/2022 09/18/2023 1 1 Encounter Details Date Type Department Care Team (Latest Contact Info) Description 10/11/2022 12:11 PM WOUND/OSTOMY NURSE Hospital Encounter [facility] PFT Lab [address] [facility] [address] [place] [phone] Asthma-COPD overlap syndrome (CMS/HCC) (HCC) Social History Tobacco Use Types [...] on file Legal Sex Female 11:00 AM WOUND/OSTOMY NURSE Gender Identity Not on file Sexual Orientation Not on file documented as of this encounter Plan of Treatment Not on file documented as of this encounter Procedures Procedure Name Priority Date/Time Associated Diagnosis Comments PULMONARY FUNCTION TEST (PFT) Routine 10/11/2022 1:15 PM WOUND/OSTOMY NURSE Asthma-COPD overlap syndrome (CMS/HCC) ([facility]) documented in this encounter Results * Pulmonary Function Test - (10/11/2022 1:15 PM WOUND/OSTOMY NURSE) FVC PRE 2.[address] [facility] FVC %PRE PRED 75 % [facility] FEV1 PRE 1.[address] [facility] FEV1 %PRE PRED 62 % [facility] FEV1/FVC PRE 64.5 % [facility] Anatomical Region Laterality Modality PFT 10/11/2022 12:4 5 PM WOUND/OSTOMY NURSE Addenda Addendum by Danilo Rutledge MD on 10/14/2022 4:03 PM WOUND/OSTOMY NURSE Table formatting from the original result was not included. [facility] Division of Pulmonary & Critical Care Medicine [address] [place] [address]; [place] [facility]; [place], [place] ??[address]; [phone] Pulmonary Function Laboratory Pulmonary Stress Test Simple/Oxygen Assessment Patient: Yane Fagan Date: No visit date found. : 1960 Ht: 69.5 IN Wt: 146 LBS Time (min) Distance (ft)/ Resendez O2 L/M SpO2 HR Jony* BP FEV1 % Pred Rest: ??RA 99 71 0.5 135/82 1.73 59 % ? Walk/Bike: 1 ??RA 100 90 1 ? 2 ??RA 100 95 1 ? 3 ??RA 99 103 2 ? 4 ??RA 99 102 2 ? 5 ??RA 99 105 2/3 ? 6 min 0 sec ??RA 100 107 4 ? Recovery: 1 ??RA 100 72 3 126/83 1.82 62% 3 ??RA 100 67 2 ?*Jony rate of perceived exertion (1-10 dyspnea scale) ??Victoriano, CHEST 2003; 123:1408 Walk Test Summary: Six Minute Walk Distance: 1540 ft Six-minute Walk Work [distance (m) x body wt (kg)]: 58037 kg.m (normal >60,000kg.m) Oxygen required to maintain [...] associated with no significant change of FEV1. ?? Danilo Rutledge M.D. By signing this report, the attending pulmonary physician certifies that he/she has personally reviewed and interpreted the graphic and numerical data associated with this pulmonary function study and has reviewed and /or edited a preliminary draft report and agrees with the written final report. Narrative 10/14/2022 2:09 PM WOUND/OSTOMY NURSE See PDF PFT performed at:->[facility] Procedure:->Spirometry Procedure:->Oxygen Assessment Titration Bi Ware MD PFT ORDERABLES Edit ed Result - Final documented in this encounter Visit Diagnoses Diagnosis Asthma-COPD overlap syndrome (HCC) documented in this encounter Care Teams Odd Job Worker Relationship Specialty Start Date End Date Michael Sherman MD [address] [place] [address] PCP - General 01/28/17 Neil Bates MD [address] [address] Consulting Physician Cardiology 03/17/20 documented as of this encounter
--- OUTSIDE RECORDS SUMMARY | 2024-08-24 04:34 | XMS_ITS | Encounter Summary ---
Author Organization [facility] Address [address] [address] Care Team Providers Care Claims Collector Name Role Phone Michael Sherman MD Primary Care Prov ider Neil Bates MD Unavailable Reason for Visit * Cardiology (Routine) - Closed Specialty Diagnoses / Procedures Referred By Contac t Referred To Contact Diagnoses Palpitations Procedures DEVICE CHECK - REMOTE Neil Bates MD [address] [place] [address] Phone: tel: fax: [facility] Referral ID Status Reason Start Date Expiration Date Visits Re quested Visits Authorized [id number] Closed 07/28/2020 08/27/2021 1 1 Encounter Details Date Type Department Care Team (Latest Contact Info) Description 10/13/2020 7:15 AM BENZOL STILL OPERATOR Ancillary Procedure [facility] Medical [facility] Cardiology [address] [place] [phone] Palpitations; Status post placement of implantable loop recorder Social History Tobacco Use Types Packs/Day Years Used Date Smoking Tobacco: Never Smokeless Tobacco: Never Alcohol Use Standard Drinks/Week Comments No 0 (1 standard drink = 0.6 oz pur e alcohol) Comments No Sex and Gender Information Value Date Recorded Sex Assigned at Not on file Legal Sex Female 11:00 AM BENZOL STILL OPERATOR Gender Identity Not on file Sexual Orientation Not on file documented as of this encounter Progress Notes * Elise Knowles RN - 10/13/2020 7:15 AM CST Medtronic LINQ ILR implanted for Palpitations/PAT on 03/17/2020. Nany ([facility]) Jana (Card - follows) - [facility]. Routine remote. Normal device function. Battery function-Ok. Presenting rhythm-VS, regular. Medications; no cardiac meds listed. No auto or patient recorded episodes noted. See scanned report. [facility] remote f/u 11/24/2020. documented in this encounter Plan of Treatment Not on file documented as of this encounter Procedures Procedure Name Priority Date/Time Associated Diagnosis Comments DEVICE CHECK - REMOTE Routine 10/15/2020 9:16 AM BENZOL STILL OPERATOR Palpitations documented in this encounter Results * DEVICE CHECK - REMOTE (10/15/2020 9:16 AM BENZOL STILL OPERATOR) Anatomical Region Laterality Modality Other Narrative 11/26/2020 9:16 AM CDT Medtronic LINQ ILR implanted for Palpitations/PAT on 03/17/2020. ??Nany ([facility]) ??Jana (Card - follows) - [facility]. ?? Routine remote. Normal device function. Battery function-Ok. Presenting rhythm-VS, regular. Medications; no cardiac meds listed. No auto or patient recorded episodes noted. See scanned report. [facility] remote f/u 11/24/2020. Neil Bates MD CV CARDIAC SERVICES PROCEDURES F inal Result documented in this encounter Visit Diagnoses Diagnosis Palpitations Status post placement of implantable loop recorder documented in this encounter Care Teams Claims Collector Relationship Specialty Start Date End Date Michael Sherman MD [address] [place] [address] PCP - General 01/28/17 Neil aBtes MD [address] [place] [address] Consulting Physician Cardiology 03/17/20 documented as of this encounter
--- OUTSIDE RECORDS SUMMARY | 2024-08-24 04:34 | XMS_ITS | Encounter Summary ---
Author Organization [facility] Address [address] [address] Care Team Providers Care Weaving Teacher Name Role Phone Michael Sherman MD Primary Care Prov ider Neil Bates MD Unavailable Reason for Visit * Cardiology (Routine) - Closed Specialty Diagnoses / Procedures Referred By Contac t Referred To Contact Diagnoses Palpitations PAT (paroxysmal atrial tachycardia) (HCC) Procedures DEVICE CHECK - REMOTE Neil Bates MD [address] [place] [address] Phone: tel: fax: [facility] Referral ID Status Reason Start Date Expiration Date Visits Re quested Visits Authorized [id number] Closed 12/18/2021 06/20/2023 1 1 Encounter Details Date Type Department Care Team (Latest Contact Info) Description 08/17/2022 7:15 AM AGRICULTURE LABORATORY TECHNICIAN Ancillary Procedure [facility] Medical [facility] Cardiology [address] [place] [phone] Palpitations; PAT (paroxysmal atrial tachycardia) (CMS/HCC) [...] on file Legal Sex Female 11:00 AM AGRICULTURE LABORATORY TECHNICIAN Gender Identity Not on file Sexual Orientation Not on file documented as of this encounter Plan of Treatment Pending Results Name Type Priority Associated Diagnoses Date /Time DEVICE CHECK - REMOTE Cardiac Services Routine Palpitations PAT (paroxysmal atrial tachycardia) (CMS/HCC) ([facility]) 08/17/2022 9:00 AM AGRICULTURE LABORATORY TECHNICIAN documented as of this encounter Visit Diagnoses Diagnosis Palpitations PAT (paroxysmal atrial tachycardia) ([facility]) Paroxysmal supraventricular tachycardia Status post placement of implantable loop recorder documented in this encounter Care Teams Weaving Teacher Relationship Specialty Start Date End Date Michael Sherman MD [address] [place] [address] PCP - General 01/28/17 Neil Bates MD [address] [address] Consulting Physician Cardiology 03/17/20 documented as of this encounter
--- OUTSIDE RECORDS SUMMARY | 2024-08-24 04:34 | XMS_ITS | Encounter Summary ---
Author Organization [facility] Address [address] [address] Care Team Providers Care Spikemaking Supervisor Name Role Phone Michael Sherman MD Primary Care Prov ider Neil Bates MD Unavailable Reason for Visit * Cardiology (Routine) - Closed Specialty Diagnoses / Procedures Referred By Contac t Referred To Contact Diagnoses Palpitations PAT (paroxysmal atrial tachycardia) (HCC) Procedures DEVICE CHECK - REMOTE Neil Bates MD [address] [place] [address] Phone: tel: fax: [facility] Referral ID Status Reason Start Date Expiration Date Visits Re quested Visits Authorized [id number] Closed 03/30/2021 04/29/2022 1 1 Encounter Details Date Type Department Care Team (Latest Contact Info) Description 10/26/2021 7:15 AM CDT Ancillary Procedure [facility] Cardiology [address] [place] [phone] Palpitations; PAT (paroxysmal atrial tachycardia) (CMS/HCC) [...] on file Legal Sex Female 11:00 AM ACTIVITIES CONCIERGE Gender Identity Not on file Sexual Orientation Not on file documented as of this encounter Plan of Treatment Not on file documented as of this encounter Procedures Procedure Name Priority Date/Time Associated Diagnosis Comments DEVICE CHECK - REMOTE Routine 10/26/2021 4:21 PM CDT Palpitations PAT (paroxysmal atrial tachycardia) (CMS/HCC) (HCC) documented in this encounter Results * DEVICE CHECK - REMOTE (10/26/2021 4:21 PM CDT) Anatomical Region Laterality Modality Other Narrative 12/24/2021 1:39 PM CDT Medtronic LINQ ILR implanted for Palpitations/PAT on 03/17/2020. ??Nany ([facility] ) ??Jana (Card - follows) - [facility]. ?? Routine remote. Normal device function. Battery function-Ok. ?? Presenting rhythm-VS, regular 64 bpm. Medications; no cardiac meds listed. ?? No auto or patient recorded episodes noted. See scanned report. ?? [facility] remote f/u 12/07/2021. Neil Bates MD CV CARDIAC SERVICES PROCEDURES F inal Result documented in this encounter Visit Diagnoses Diagnosis Palpitations PAT (paroxysmal atrial tachycardia) (HCC) Paroxysmal supraventricular tachycardia Status post placement of implantable loop recorder documented in this encounter Care Teams Spikemaking Supervisor Relationship Specialty Start Date End Date Michael Sherman MD [address] [place] [address] PCP - General 01/28/17 Neil Bates MD [address] [facility] [address] [place] [address] Consulting Physician Cardiology 03/17/20 documented as of this encounter
--- OUTSIDE RECORDS SUMMARY | 2024-08-24 04:34 | XMS_ITS | Encounter Summary ---
Author Organization [facility] Address [address] [facility] [address] [place] [address] Phone Care Team Providers Care Insurance Loss Adjuster Name Role Phone Michael Sherman MD Primary Care Prov ider Neil Bates MD Unavailable Reason for Referral * (Routine) - Closed Specialty Diagnoses / Procedures Referred By Chelsy herbert Referred To Contact Diagnoses Moderate persistent asthma, unspecified whether complicated Procedures Pulmonary Function Test -[facility]- [facility]; Spirometry Bi Ware MD [address] [place] [address] Phone: tel: fax: Referral ID Status Reason Start Date Expiration Date Visits Re quested Visits Authorized [id number] Closed 08/21/2020 09/20/2021 1 1 Reason for Visit * (Routine) - Closed Specialty Diagnoses / Procedures Referred By Chelsy herbert Referred To Contact Diagnoses Moderate persistent asthma, unspecified whether complicated Procedures Pulmonary Function Test -[facility]- [facility]; Spirometry Bi Ware MD [address] [place] [address] Phone: tel: fax: Referral ID Status Reason Start Date Expiration Date Visits Re quested Visits Authorized [id number] Closed 08/21/2020 09/20/2021 1 1 Encounter Details Date Type Department Care Team (Latest Contact Info) Description 02/19/2021 2:30 PM CDT - 02/19/2021 11:59 PM CDT Hospital Encounter [facility] Pulmonary [address] [facility] [address] [place] [address] Moderate persistent asthma, unspecified whether complicated Discharge Disposition: Discharge to home or self care Social History Tobacco Use Types Packs/Day Years Used Date Smoking Tobacco: Never Smokeless Tobacco: Never Alcohol Use Standard Drinks/Week Comments No 0 (1 standard drink = 0.6 oz pur e alcohol) Comments No Sex and Gender Information Value Date Recorded Sex Assigned at Not on file Legal Sex Female 11:00 AM 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 Gender Identity Not on file Sexual Orientation Not on file documented as of this encounter Medications at Time of Discharge aspirin (ASPIR-81) 81 mg tablet take 1 tablet by oral route every day 0 0 12/11/2015 multivitamin-iro n-folic acid (Centrum) 18-400 mg-mcg tablet Take by mouth albuterol HFA (PROVENTIL HFA,VENTOLIN HFA,PROAIR HFA) 90 mcg/actuation inhaler Inhale 2 puffs every 6 (six) hours as needed for wheezing 1 Inhaler 11 02/19/2021 08/25/2021 fluticasone propion-salmeter oL (Wixela Inhub) 500-50 mcg/dose diskus inhaler Inhale 1 puff 2 (two) times a day Rinse mouth with water after use. Do not swallow. 60 each 11 02/19/2021 08/25/2021 loratadine (CLARITIN) 10 mg tablet Take 10 mg by mouth daily 09/17/2020 08/25/2021 montelukast (SINGULAIR) 10 mg tablet Take 10 mg by mouth daily 10/01/2019 08/25/2021 documented as of this encounter Discharge Disposition Disposition Code Departure Means Destination Discharge to home or self care documented in this encounter Plan of Treatment Not on file documented as of this encounter Procedures Procedure Name Priority Date/Time Associated Diagnosis Comments PULMONARY FUNCTION TEST (PFT) Routine 02/19/2021 2:51 PM CDT Moderate persistent asthma, unspecified whether complicated documented in this encounter Results * Pulmonary Function Test - (02/19/2021 2:51 PM CDT) FVC PRE 2.80 L [facility] FVC %PRE PRED 73 % [facility] FEV1 PRE 1.72 L [facility] FEV1 %PRE PRED 57 % [facility] FEV1/FVC PRE 61.6 % [facility] Anatomical Region Laterality Modality PFT 02/19/2021 2:46 PM CDT Narrative 02/26/2021 8:57 AM CDT PFT performed at:->[facility] Procedure:->Spirometry UPDATED Bi Gina Ware MD PFT ORDERABLES Krystyna l Result documented in this encounter Visit Diagnoses Diagnosis Moderate persistent asthma, unspecified whether complicated documented in this encounter Care Teams Insurance Loss Adjuster Relationship Specialty Start Date End Date Michael Sherman MD [address] [place] [address] PCP - General 01/28/17 Neil Bates MD [address] [address] Consulting Physician Cardiology 03/17/20 documented as of this encounter
--- OUTSIDE RECORDS SUMMARY | 2024-08-24 04:34 | XMS_ITS | Encounter Summary ---
Author Organization [facility] Address [address] [address] Care Team Providers Care Hydraulic Modeling Engineer Name Role Phone Michael Sherman MD Primary Care Prov ider Neil Bates MD Unavailable Reason for Referral * Cardiology (Routine) - Closed Specialty Diagnoses / Procedures Referred By Chelsy herbert Referred To Contact Diagnoses Palpitations Procedures DEVICE CHECK - REMOTE Neil Bates MD [address] [address] Phone: tel: fax: [facility] Referral ID Status Reason Start Date Expiration Date Visits Re quested Visits Authorized [id number] Closed 10/15/2020 11/14/2021 1 1 D CENTER ASSISTANT * Cardiology (Routine) - Closed Specialty Diagnoses / Procedures Referred By Chelsy herbert Referred To Contact Diagnoses Palpitations Procedures DEVICE CHECK - REMOTE Neil Bates MD [address] [address] Phone: tel: fax: [facility] Referral ID Status Reason Start Date Expiration Date Visits Re quested Visits Authorized [id number] Closed 10/15/2020 11/14/2021 1 1 D CENTER ASSISTANT Encounter Details Date Type Department Care Team (Late st Contact Info) Description 10/15/2020 Orders Only [facility] Cardiology [address] [facility] [address] [place] [address] Neil Bates MD [address] [place] [address] [address] [facility] [address] [place] [address] Palpitations (Primary Dx) Social History Tobacco Use Types Packs/Day Years Used Date Smoking Tobacco: Never Smokeless Tobacco: Never Alcohol Use Standard Drinks/Week Comments No 0 (1 standard drink = 0.6 oz pur e alcohol) Comments No Sex and Gender Information Value Date Recorded Sex Assigned at Not on file Legal Sex Female 11:00 AM CHILD CENTER ASSISTANT Gender Identity Not on file Sexual Orientation Not on file documented as of this encounter Plan of Treatment Not on file documented as of this encounter Results * DEVICE CHECK - REMOTE (02/17/2021 12:10 PM CDT) Anatomical Region Laterality Modality Other Narrative 02/23/2021 12:21 PM CDT Medtronic LINQ ILR implanted for Palpitations/PAT on 03/17/2020. ??Nany (Dudley [place]AMPAGNE) ??Jana (Card - follows) - [facility]. Routine remote. Normal device function. Battery function-Ok. Presenting rhythm-VS, regular 60 bpm. Medications; no cardiac meds listed. No auto or patient recorded episodes noted. See scanned report. [facility]link remote f/u 03/30/2021. us Neil Bates MD CV CARDIAC SERVICES PROCEDURES F inal Result * DEVICE CHECK - REMOTE (01/05/2021 2:07 PM CDT) Anatomical Region Laterality Modality Other Narrative 02/02/2021 8:06 AM CDT This patient received a Medtronic implantable LINQ loop recorder. ??They had a routine ??remote transmission on 01/05/2021. Device implant indications: ??Palpitation ?? Interrogation of the patient's device demonstrates the following: Presenting EGM: ??Sinus rhythm @ 67 bpm Battery Status: ??Okay Episodes last 90 days/Comments: AF Mayetta 0 %, 0 total time, There were no arrhythmias noted on today's remote interrogation. NORMAL DEVICE FUNCTION PROGRAMMED Anti-coagulant(s): ??Aspirin 81 mg daily Anti-arrhythmic(s): ??None Plan: 1) normal Medtronic implantable LINQ loop recorder evaluation 2) Medtronic remote transmission scheduled in1 months. Get Briones, TammyN. Neil Bates MD CV CARDIAC SERVICES PROCEDURES F inal Result documented in this encounter Visit Diagnoses Diagnosis Palpitations- Primary Palpitations Status post placement of implantable loop recorder Palpitations Status post placement of implantable loop recorder documented in this encounter Care Teams Hydraulic Modeling Engineer Relationship Specialty Start Date End Date Michael Sherman MD [address] [place] [address] PCP - General 01/28/17 Neil Bates MD [address] [address] Consulting Physician Cardiology 03/17/20 documented as of this encounter
--- OUTSIDE RECORDS SUMMARY | 2024-08-24 04:34 | XMS_ITS | Encounter Summary ---
Author Organization [facility] Address [address] [address] Care Team Providers Care Drafter Electronic Name Role Phone Michael Sherman MD Primary Care Prov ider Neil Bates MD Unavailable Reason for Visit * Cardiology (Routine) - Closed Specialty Diagnoses / Procedures Referred By Contac t Referred To Contact Diagnoses Palpitations Procedures DEVICE CHECK - REMOTE Neil Bates MD [address] [place] [address] Phone: tel: fax: [facility] Referral ID Status Reason Start Date Expiration Date Visits Re quested Visits Authorized [id number] Closed 09/15/2021 03/15/2023 1 1 Encounter Details Date Type Department Care Team (Latest Contact Info) Description 03/01/2022 7:30 AM CDT Ancillary Procedure 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 ??Nany (Imp ) ??Jnaa (Card - follows) - [facility]. Routine remote. [...] recorder documented in this encounter Care Teams Drafter Electronic Relationship Specialty Start Date End Date Michael Sherman MD [address] [place] [address] PCP - General 01/28/17 Neil Bates MD [address] [facility] [address] [place] [address] Consulting Physician Cardiology 03/17/20 documented as of this encounter
--- OUTSIDE RECORDS SUMMARY | 2024-08-24 04:34 | XMS_ITS | Encounter Summary ---
Author Organization [facility] Address [address] [facility] [address] [place] [address] Care Team Providers Care Software Release Engineer Name Role Phone Michael Sherman MD Primary Care Prov ider Neil Bates MD Unavailable Encounter Details Date Type Department Care Team (Late st Contact Info) Description 06/23/2022 Telephone [facility] Cardiology [address] [phone] Neil Bates MD [address] [place] [address] Social History Tobacco Use Types Packs/Day Years Used Date Smoking Tobacco: Never Smokeless Tobacco: Never Alcohol Use Standard Drinks/Week Comments No 0 (1 standard drink = 0.6 oz pur e alcohol) Comments No Sex and Gender Information Value Date Recorded Sex Assigned at Not on file Legal Sex Female 11:00 AM SKIDDER DRIVER Gender Identity Not on file Sexual Orientation Not on file documented as of this encounter Miscellaneous Notes * Telephone Encounter - Kera Feliz MA - 06/28/2022 2:26 PM CST Report received 11-14-22, LMOR informing pt DER DRIVER * Telephone Encounter - Kera Feliz MA - 06/25/2022 10:05 AM SKIDDER DRIVER Report not received. Lmor informing pt of this and informed her that she can send in another remote or we can wait for the next scheduled download. Pt instructed to call me with any questions. DER DRIVER * Telephone Encounter - Dunia Bolanos RN - 06/23/2022 3:21 PM CST See below please DER DRIVER * Telephone Encounter - Judith Apple - 06/23/2022 3:16 PM CST Pt states she missed a call from Kera requesting she sends a reading from her device. Pt states she tried to send a report last night but is unsure if it went through. Contact: DER DRIVER documented in this encounter Plan of Treatment Not on file documented as of this encounter Visit Diagnoses Not on filedocumented in this encounter Care Teams Software Release Engineer Relationship Specialty Start Date End Date Michael Sherman MD [address] [place] [address] PCP - General 01/28/17 Neil Bates MD [address] [address] Consulting Physician Cardiology 03/17/20 documented as of this encounter
--- OUTSIDE RECORDS SUMMARY | 2024-08-24 04:34 | XMS_ITS | Encounter Summary ---
Author Organization [facility] Address [address] [facility] [address] [place] [address] Care Team Providers Care Truck Striker Name Role Phone Michael Sherman MD Primary Care Prov ider Neil Bates MD Unavailable Reason for Visit * Consultation (Routine) - Closed Specialty Diagnoses / Procedures Referred By Contac t Referred To Contact Diagnoses PSVT (paroxysmal supraventricular tachycardia) (HCC) Palpitations Neil Bates MD [address] [address] Phone: tel: fax: Neil Bates MD [address] [address] Phone: tel: fax: Referral ID Status Reason Start Date Expiration Date V isits Requested Visits Authorized [id number] Closed Specialty Services Required 08/18/2022 09/17/2023 1 1 Encounter Details Date Type Department Care Team (Latest Contact Info) Description 10/19/2022 1:15 PM CATALYST UNIT OPERATOR Office Visit Arrhythmia Center [address] [facility] [address], [place] [address] Beba Red, PROVIDER RELATIONS CONSULTANT [address] [place] [address] [address], [place] [address] Pulmonary hypertension (CMS/HCC) (HCC) (Primary Dx); PSVT (paroxysmal supraventricular tachycardia) (CMS/HCC) (HCC); Palpitations Social History Tobacco Use Types Packs/Day Years [...] on file Legal Sex Female 11:00 AM CATALYST UNIT OPERATOR Gender Identity Not on file Sexual Orientation Not on file documented as of this encounter Last Filed Vital Signs Vital Sign Reading Time Taken Comments Blood Pressure 100/68 10/19/2022 12:54 PM CATALYST UNIT OPERATOR Pulse 75 10/19/2022 12:54 PM CATALYST UNIT OPERATOR Temperature - - Respiratory Rate - - Oxygen Saturation 99% 10/19/2022 12:54 PM CATALYST UNIT OPERATOR Inhaled Oxygen Concentration - - Weight 65.1 kg (143 lb 8 oz) 10/19/2022 12:54 PM CATALYST UNIT OPERATOR Height 177.8 cm (5' 10 ) 10/19/2022 12:54 PM CATALYST UNIT OPERATOR Body Mass Index 20.59 10/19/2022 12:54 PM CATALYST UNIT OPERATOR documented in this encounter Ordered Prescriptions Prescription Sig Dispense Quantity Refills Last Filled Start Date End Date dilTIAZem XR (CARDIZEM CD,DILACOR XR) 120 mg 24 hr capsule Take 1 capsule (120 mg total) by mouth daily 30 capsule 3 10/19/2022 3 documented in this encounter Progress Notes * Beba Red, SHAW - 10/19/2022 1:15 PM CST Images from the original note were not included. [facility]ia [facility] [address] [facility] [place], [place] [address] Office Visit Note Patient Name: Yane Fagan Date of : 1960 Primary Physician: Michael Sherman MD Chief Complaint Palpitations Tachycardia HPI Yane Fagan is a 62 y.o. female seen in consultation for palpitations and tachycardia. Previous placement of an implantable loop recorder. She would implantable loop recorder placed in the past for palpitations. She is past history of lung carcinoma, lung resection, noncardiac chest pain, and normal LV function. She presents today with complaints of palpitations and tachycardia. During those times they make her short of breath. EKG on my review today demonstrates sinus rhythm (65) with normal QRS duration and QT interval. Past Medical History Past Medical History: Diagnosis Date Asthma Asthma Asthma Asthma; Comments: [facility] 10/10/2014 - Brain concussion Multiple .....Last Jun 2018 Cancer of lung ([facility] ([facility]) Cancer, lung Cerebrovascular accident (CVA) ([facility]) ([facility]) Stroke Chronic bronchitis ([facility]) ([facility]) 2009 Clotting disorder ([facility]) ([facility]) 1961 Depression Depression Emphysema of lung ([facility]) ([facility]) 2015 HX OTHER MEDICAL NSCLC 1a- adenocarcinoma HX OTHER MEDICAL palpitations HX OTHER MEDICAL 2012 Small lacunar infarct- basal ganglia HX OTHER MEDICAL hx gestational diabetes HX OTHER MEDICAL chronic bronchitis HX OTHER MEDICAL ENCEPHALITIS HX OTHER MEDICAL seizure disorder; Comments: [facility] 10/10/2014 - HX OTHER MEDICAL encephalitis; Comments: [facility] 10/10/2014 - HX OTHER MEDICAL 2010 lung cancer surgery; Comments: [facility] 10/10/2014 - HX OTHER MEDICAL scoliosis; Comments: [facility] 10/10/2014 - HX OTHER MEDICAL carpal tunnel; Comments: [facility] 10/10/2014 - HX OTHER MEDICAL headaches; Comments: [facility] 10/10/2014 - HX OTHER MEDICAL neuropathy; Comments: [facility] 10/10/2014 - HX OTHER MEDICAL 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 Migraines 2009 Neuromuscular disorder ([facility]) ([facility]) 2009 Peptic ulceration 1970 Seizure disorder ([facility]) ([facility]) Seizure disorder Thyroid disease 1970 Past Surgical History Past Surgical History: Procedure Laterality Date SECTION section SECTION 1990 1996 1999 LUMBAR PUNCTURE WO INJECTION, DIAGNOSTIC N/A 01/12/2013 OTHER SURGICAL HISTORY VATS wtih R lobectomy TONSILLECTOMY Tonsillectomy Medications Current Outpatient Medications Medication Instructions albuterol HFA (PROVENTIL HFA,VENTOLIN HFA,PROAIR HFA) 90 mcg/actuation inhaler 2 puffs, inhalation,Every 6 hours PRN Aspir-81 81 mg dilTIAZem CD/XR/XT (CARDIZEM CD,DILACOR XR) 120 mg, oral, Daily fluticasone propion-salmeteroL (Wixela Inhub) 500-50 mcg/dose diskus inhaler 1 puff, inhalation, 2 times daily, Rinse mouth with water after use. Do not swallow. fluticasone propion/salmeterol (ADVAIR HFA INHAL) inhalation, 2 times daily loratadine (CLARITIN) 10 mg, oral, Daily montelukast (SINGULAIR) 10 mg, oral, Daily yhwsouffebfb-pamj-bwufx acid (Centrum) 18-400 mg-mcg tablet oral tiotropium (Spiriva with HandiHaler) 18 mcg per inhalation capsule 1 capsule, inhalation, Daily Allergies Allergies Allergen Reactions Adhesive Rash Adhesive Tape-Silicones [...] and Other (See comments) Peanut Oil Vomiting Family History Family History Problem Relation Age of Onset Prostate cancer Father Cancer, prostate; Cause of : Cancer, prostate/Prostate Cancer - (Added by TW Conv) Liver cancer Father Cancer, liver; Cause of : Cancer, liver Diabetes Father Diabetes mellitus; /Diabetes Mellitus - (Added by TW Conv) Lung cancer Father Family history of lung cancer - (Added by TW Conv) Cancer Father Hypertension Father Vision loss Father Obesity Father Diabetes Other Family history of Diabetes mellitus; Asthma Other Family history of Asthma; Hypertension Other Family history of Hypertension; Other Other Family history of Bleeding tendencies; Osteoarthritis Other Family history of Osteoarthritis; Cancer Other Family history of Cancer; Stroke Other Family history of Stroke; Neuropathy Sister Neuropathy; Arthritis Mother arthritis; Other Mother chronic bronchitis; Allergy (severe) Mother Asthma Mother COPD Mother Clotting disorder Mother Lung cancer Maternal Grandfather Family history of lung cancer - Relation: Grandfather (Added by TW Conv) Emphysema Maternal Grandfather Emphysema, compensatory - Relation: Grandfather (Added by TW Conv) Heart disease Maternal Grandfather Family history of cardiac disorder - Relation: Grandfather (Added by TW Conv) Cancer Maternal Grandfather COPD Maternal Grandfather Heart disease Other Family history of cardiac disorder - (Added by TW Conv) Hypertension Other Family history of hypertension - Relation: Grandmother (Added by TW Conv) Heart failure Maternal Great-Grandfather Family history of congestive heart failure - (Added by TW Conv) Alzheimer's disease Paternal Grandmother Arthritis Maternal Grandmother Hypertension Maternal Grandmother Memory loss Maternal Grandmother Vision loss Maternal Grandmother Arthritis Mother's Brother Heart disease Mother's Brother Arthritis Mother's Sister Cancer Mother's Sister Heart disease Mother's Sister Asthma Daughter Depression Daughter Rashes / Skin problems Daughter Obesity Daughter Cancer Paternal Grandfather Diabetes Paternal Grandfather Cancer Sister Depression Son Rashes / Skin problems Son Vision loss Son Obesity Son Depression Son Social History Social History Tobacco Use Smoking status: Never Smokeless tobacco: Never Substance and Sexual Activity Drug use: No Sexual activity: Never Alcohol Use: Not At Risk Frequency of Alcohol Consumption: Never Average Number of Drinks: Not on file Frequency of Binge Drinking: Not on file Objective Physical Exam Vitals reviewed. Constitutional: Appearance: Normal appearance. She is well-developed. HENT: Head: Normocephalic and atraumatic. Right Ear: External ear normal. Left Ear: External ear normal. Nose: Nose normal. Mouth/Throat: Mouth: Mucous membranes are moist. Pharynx: Oropharynx is clear. Eyes: Conjunctiva/sclera: Conjunctivae normal. Pupils: Pupils are equal, round, and reactive to light. Cardiovascular: Rate and Rhythm: Normal rate and regular rhythm. Pulses: Normal pulses. Heart sounds: Normal heart sounds. No murmur heard. Pulmonary: Effort: Pulmonary effort is normal. Breath sounds: Normal breath sounds. Abdominal: General: Bowel sounds are normal. Palpations: Abdomen is soft. Musculoskeletal: General: Normal range of motion. Cervical back: Normal range of motion and neck supple. Skin: General: Skin is warm and dry. Neurological: General: No focal deficit present. Mental Status: She is alert and oriented to person, place, and time. Psychiatric: Mood and Affect: Mood normal. Behavior: Behavior normal. BP 100/68 (BP Location: Left arm, Patient Position: Sitting) Pulse 75 Ht 177.8 cm (5' 10 ) Wt65.1 kg (143 lb 8 oz) SpO2 99% BMI 20.59 kg/m?? Review of Systems Constitutional: Negative. HENT: Negative. Eyes: Negative. Respiratory: Negative. Cardiovascular: Negative. Gastrointestinal: Negative. Genitourinary: Negative. Musculoskeletal: Negative. Skin: Negative. Neurological: Negative. Endo/Heme/Allergies: Negative. Psychiatric/Behavioral: Negative. Assessment/Plan 1. Palpitations 2. SVT 3. Normal LV function 4. History of lung cancer 5. Status post placement of implantable loop recorder Have interrogated her implantable loop recorder today. Palpitations correlate with episodes of SVT,likely atrial tachycardia. Will start diltiazem 120 mg daily. Will continue to monitor burden via her implantable loop recorder Beba Red NP [facility] Arrhythmia Center Beba Red NP LYST UNIT OPERATOR documented in this encounter Plan of Treatment Not on file documented as of this encounter Procedures Procedure Name Priority Date/Time Associated Diagnosis Comments ECG 12-LEAD Routine 10/19/2022 Pulmonary hypertension (CMS/HCC) (HCC) documented in this encounter Results * ECG 12 lead (10/19/2022) Beba Red NP ECG ORDERABLES Final Resu lt documented in this encounter Visit Diagnoses Diagnosis Pulmonary hypertension (HCC)- Primary Other chronic pulmonary heart diseases PSVT (paroxysmal supraventricular tachycardia) (HCC) Paroxysmal supraventricular tachycardia Palpitations documented in this encounter Orders Outpatient Referral Count Last Ordered Date Fir st Ordered Date AMB REFERRAL TO CARDIOLOGY 1 10/19/2022 documented in this encounter Care Teams Truck Striker Relationship Specialty Start Date End Date Michael Sherman MD [address] [place] [address] PCP - General 01/28/17 Neil Bates MD [address] [place] [id number] Consulting Physician Cardiology 03/17/20 documented as of this encounter
--- OUTSIDE RECORDS SUMMARY | 2024-08-24 04:34 | XMS_ITS | Encounter Summary ---
Author Organization [facility] Address [address] [address] Care Team Providers Care Health Nurse Name Role Phone Michael Sherman MD Primary Care Prov ider Neil Bates MD Unavailable Reason for Visit * Cardiology (Routine) - Closed Specialty Diagnoses / Procedures Referred By Contac t Referred To Contact Diagnoses Palpitations PAT (paroxysmal atrial tachycardia) (HCC) Procedures DEVICE CHECK - REMOTE Neil Bates MD [address] [place] [address] Phone: tel: fax: [facility] Referral ID Status Reason Start Date Expiration Date Visits Re quested Visits Authorized [id number] Closed 09/28/2022 03/28/2024 1 1 Encounter Details Date Type Department Care Team (Latest Contact Info) Description 01/31/2023 7:15 AM CDT Ancillary Procedure [facility] Medical [facility] Cardiology [address] [place] [phone] Status post placement of implantable loop [...] on file Legal Sex Female 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 Gender Identity Not on file Sexual Orientation Not on file documented as of this encounter Plan of Treatment Not on file documented as of this encounter Procedures Procedure Name Priority Date/Time Associated Diagnosis Comments DEVICE CHECK - REMOTE Routine 01/31/2023 12:10 PM CDT Palpitations PAT (paroxysmal atrial tachycardia) (CMS/HCC) (HCC) documented in this encounter Results * DEVICE CHECK - REMOTE (01/31/2023 12:10 PM CDT) Anatomical Region Laterality Modality Other Narrative 03/18/2023 8:19 PM CDT [employer]tronic REVEAL LinQ implanted March 17, 2020 for [...] Continue to monitor remotely. Alessio Pemberton Device Netezza Architect us Neil Bates MD CV CARDIAC SERVICES PROCEDURES F inal Result documented in this encounter Visit Diagnoses Diagnosis Status post placement of implantable loop recorder- Primary Palpitations PAT (paroxysmal atrial tachycardia) (HCC) Paroxysmal supraventricular tachycardia documented in this encounter Care Teams Health Nurse Relationship Specialty Start Date End Date Michael Sherman MD [address] [place] [address] PCP - General 01/28/17 Neil Bates MD [address] [facility] [address] [place] [phone] Consulting Physician Cardiology 03/17/20 documented as of this encounter
--- OUTSIDE RECORDS SUMMARY | 2024-08-24 04:34 | XMS_ITS | Encounter Summary ---
Author Organization [facility] Address [address] [address] Care Team Providers Care Medical Records Field Technician Name Role Phone Michael Sherman MD Primary Care Prov ider Neil Bates MD Unavailable Reason for Referral * Cardiology (Routine) - Closed Specialty Diagnoses / Procedures Referred By Contac t Referred To Contact Diagnoses Palpitations PSVT (paroxysmal supraventricular tachycardia) (HCC) PAT (paroxysmal atrial tachycardia) (HCC) Procedures DEVICE CHECK - REMOTE Neil Bates MD [address] [address] [address] Phone: tel: fax: [facility] Referral ID Status Reason Start Date Expiration Date Visits Re quested Visits Authorized [id number] Closed 03/01/2022 09/01/2023 1 1 * Cardiology (Routine) - Closed Specialty Diagnoses / Procedures Referred By Contac t Referred To Contact Diagnoses Palpitations PSVT (paroxysmal supraventricular tachycardia) (HCC) PAT (paroxysmal atrial tachycardia) (HCC) Procedures DEVICE CHECK - REMOTE Neil Bates MD [address] [facility] [address] [place] [address] Phone: tel: fax: [facility] Referral ID Status Reason Start Date Expiration Date Visits Re quested Visits Authorized [id number] Closed 03/01/2022 09/01/2023 1 1 Encounter Details Date Type Department Care Team (Late st Contact Info) Description 03/01/2022 Orders Only [facility] Cardiology [address] [facility] [address] [facility] [address] Neil Bates MD [address] [place] [address] [address] [place] [address] Palpitations (Primary Dx); PSVT (paroxysmal supraventricular tachycardia) (CMS/HCC) (HCC); PAT (paroxysmal atrial tachycardia) (CMS/HCC) ([facility]) Social History Tobacco Use Types Packs/Day Years Used Date Smoking Tobacco: Never Smokeless Tobacco: Never Alcohol Use Standard Drinks/Week Comments No 0 (1 standard drink = 0.6 oz pur e alcohol) Comments No Sex and Gender Information Value Date Recorded Sex Assigned at Not on file Legal Sex Female 11:00 AM ANDROID FRAMEWORK DEVELOPER Gender Identity Not on file Sexual [...] See scanned report. [facility] remote f/u 12/20/2022. Elise Knowles, RN us Neil Bates MD CV CARDIAC SERVICES PROCEDURES F inal Result * DEVICE CHECK - REMOTE (09/28/2022 8:29 AM ANDROID FRAMEWORK DEVELOPER) Anatomical Region Laterality Modality Other Narrative 12/03/2022 1:38 PM CDT Med[employer] LINQ ILR implanted for Palpitations/PAT on 03/17/2020. ??Nany ([facility] ) ??Jana (Card - follows) - [facility]. Routine ILR remote. Normal device function. Battery function-Ok. Presenting rhythm-VS, regular 60 bpm. Medications; Diltiazem, ASA 81 mg. 1-Tachy episode recorded on 09/03/2022, egm suggestive of ST-SVT, 167 bpm, 10 second duration noted. See scanned report. [facility] remote f/u 11/08/2022. Elise Knowles, RN Neil Bates MD CV CARDIAC SERVICES PROCEDURES F inal Result documented in this encounter Visit Diagnoses Diagnosis Palpitations- Primary PSVT (paroxysmal supraventricular tachycardia) (HCC) Paroxysmal supraventricular tachycardia PAT (paroxysmal atrial tachycardia) (HCC) Paroxysmal supraventricular tachycardia Status post placement of implantable loop recorder [Z95.818 (ICD-10-CM)]- Primary Palpitations PSVT (paroxysmal supraventricular tachycardia) (HCC) Paroxysmal supraventricular tachycardia PAT (paroxysmal atrial tachycardia) (HCC) Paroxysmal supraventricular tachycardia Status post placement of implantable loop recorder [Z95.818 (ICD-10-CM)]- Primary Palpitations PSVT (paroxysmal supraventricular tachycardia) (HCC) Paroxysmal supraventricular tachycardia PAT (paroxysmal atrial tachycardia) (HCC) Paroxysmal supraventricular tachycardia documented in this encounter Care Teams Medical Records Field Technician Relationship Specialty Start Date End Date Michael Sherman MD [address] [place] [address] PCP - General 01/28/17 Neil Bates MD [address] [address] Consulting Physician Cardiology 03/17/20 documented as of this encounter
--- OUTSIDE RECORDS SUMMARY | 2024-08-24 04:34 | XMS_ITS | Encounter Summary ---
Author Organization [facility] Address [address] [facility] [address] [place] [address] Phone Care Team Providers Care Senior Court Office Assistant Name Role Phone Michael Sherman MD Primary Care Prov ider Neil Bates MD Unavailable Reason for Referral * Procedure (Routine) - Closed Specialty Diagnoses / Procedures Referred By Chelsy herbert Referred To Contact Diagnoses Asthma-COPD overlap syndrome (HCC) Procedures Pulmonary Function Test -[facility] Adult PFT Lab- [facility]; Spirometry, Oxygen Assessment Titration Bi Ware MD [address] [facility] [address] [place] [address] Phone: tel: fax: Referral ID Status Reason Start Date Expiration Date Visits Re quested Visits Authorized [id number] Closed 08/19/2022 09/18/2023 1 1 MANAGEMENT SPECIALIST Encounter Details Date Type Department Care Team (Late st Contact Info) Description 08/19/2022 Orders Only [facility] Pulmonary [address] [facility] 8th [place] [address] [place] [address] Martínez Wilcox RN Asthma-COPD overlap syndrome (CMS/HCC) (HCC) (Primary Dx) Social History Tobacco Use Types Packs/Day Years Used Date Smoking Tobacco: Never Smokeless Tobacco: Never Alcohol Use Standard Drinks/Week Comments No 0 (1 standard drink = 0.6 oz pur e alcohol) Comments No Sex and Gender Information Value Date Recorded Sex Assigned at Not on file Legal Sex Female 11:00 AM CARE MANAGEMENT SPECIALIST Gender Identity Not on file Sexual Orientation Not on file documented as of this encounter Plan of Treatment Not on file documented as of this encounter Results * Pulmonary Function Test - (10/11/2022 1:15 PM CARE MANAGEMENT SPECIALIST) Pathologist [facility] FVC PRE 2.83 L [facility] FVC %PRE PRED 75 % [facility] FEV1 PRE 1.82 L [facility] FEV1 %PRE PRED 62 % [facility] FEV1/FVC PRE 64.5 % [facility] Anatomical Region Laterality Modality PFT 10/11/2022 12:4 5 PM CARE MANAGEMENT SPECIALIST Addenda Addendum by Danilo Rutledge MD on 10/14/2022 4:03 PM CARE MANAGEMENT SPECIALIST Table formatting from the original result was not included. [facility] Division of Pulmonary & Critical Care Medicine [address] [place] [address]; [address] [facility]; [place], [place] ??[address]; [phone] Pulmonary Function Laboratory Pulmonary Stress Test Simple/Oxygen [...] Work [distance (m) x body wt (kg)]: 16635 kg.m (normal >60,000kg.m) Oxygen required to maintain [...] written final report. Narrative 10/14/2022 2:09 PM CARE MANAGEMENT SPECIALIST See PDF PFT performed at:->[facility] Adult PFT Lab- [facility] Procedure:->Spirometry Procedure:->Oxygen Assessment Titration Bi Ware MD PFT ORDERABLES Edit ed Result - Final documented in this encounter Visit Diagnoses Diagnosis Asthma-COPD overlap syndrome (HCC)- Primary Asthma-COPD overlap syndrome (HCC) documented in this encounter Care Teams Senior Court Office Assistant Relationship Specialty Start Date End Date Michael Sherman MD [address] [place] [address] PCP - General 01/28/17 Neil Bates MD [address] [facility] [address] [place] [address] Consulting Physician Cardiology 03/17/20 documented as of this encounter
--- OUTSIDE RECORDS SUMMARY | 2024-08-24 04:34 | XMS_ITS | Encounter Summary ---
Author Organization [facility] Address [address] [facility] [address] [place] [address] Phone Care Team Providers Care Operations Administrator Name Role Phone Michael Sherman MD Primary Care Prov ider Neil Bates MD Unavailable Reason for Referral * (Routine) - Closed Specialty Diagnoses / Procedures Referred By Chelsy herbert Referred To Contact Diagnoses Moderate persistent asthma without complication Procedures Pulmonary Function Test -[facility] Adult PFT Lab- [facility]; Spirometry, Oxygen Assessment Titration Bi Ware MD [address] [facility] [address] [place] [address] Phone: tel: fax: Referral ID Status Reason Start Date Expiration Date Visits Re quested Visits Authorized [id number] Closed 02/19/2021 03/21/2022 1 1 EMBEDDED SOFTWARE ENGINEER Reason for Visit * (Routine) - Closed Specialty Diagnoses / Procedures Referred By Chelsy herbert Referred To Contact Diagnoses Moderate persistent asthma without complication Procedures Pulmonary Function Test -[facility] Adult PFT Lab- [facility]; Spirometry, Oxygen Assessment Titration Bi Ware MD [address] [place] [address] Phone: tel: fax: Referral ID Status Reason Start Date Expiration Date Visits Re quested Visits Authorized [id number] Closed 02/19/2021 03/21/2022 1 1 Encounter Details Date Type Department Care Team (Latest Contact Info) Description 08/25/2021 12:44 PM LEAD EMBEDDED SOFTWARE ENGINEER - 08/25/2021 11:59 PM LEAD EMBEDDED SOFTWARE ENGINEER Hospital Encounter [facility] Pulmonary [address] [facility] [address] [place] [address] Moderate persistent asthma without complication Discharge Disposition: Discharge to home or self care Social History Tobacco Use Types Packs/Day Years Used Date Smoking Tobacco: Never Smokeless Tobacco: Never Alcohol Use Standard Drinks/Week Comments No 0 (1 standard drink = 0.6 oz pur e alcohol) Comments No Sex and Gender Information Value Date Recorded Sex Assigned at Not on file Legal Sex Female 11:00 AM LEAD EMBEDDED SOFTWARE ENGINEER Gender Identity Not on file Sexual Orientation [...] as needed for wheezing 1 each 08/25/2021 05/07/2022 fluticasone propion-salmeter oL (Wixela Inhub) 500-50 mcg/dose diskus inhaler Inhale 1 puff 2 (two) times a day Rinse mouth with water after use. Do not swallow. 60 each 08/25/2021 03/13/2024 loratadine (CLARITIN) 10 mg tablet Take 1 tablet (10 mg total) by mouth daily 90 tablet 3 08/25/2021 08/25/2022 montelukast (SINGULAIR) 10 mg tablet Take 1 tablet (10 mg total) by mouth daily 90 tablet 3 08/25/2021 08/31/2022 documented as of this encounter Discharge Disposition Disposition Code Departure Means Destination Discharge to home or self care documented in this encounter Plan of Treatment Not on file documented as of this encounter Procedures Procedure Name Priority Date/Time Associated Diagnosis Comments PULMONARY FUNCTION TEST (PFT) Routine 08/25/2021 1:23 PM LEAD EMBEDDED SOFTWARE ENGINEER Moderate persistent asthma without complication documented in this encounter Results * Pulmonary Function Test - (08/25/2021 1:23 PM LEAD EMBEDDED SOFTWARE ENGINEER) FVC PRE 3.05 L [facility] FVC %PRE PRED 80 % [facility] FEV1 PRE 2.00 L [facility] FEV1 %PRE PRED 67 % [facility] FEV1/FVC PRE 65.6 % [facility] Anatomical Region Laterality Modality PFT 08/25/2021 12:5 2 PM LEAD EMBEDDED SOFTWARE ENGINEER Narrative 08/28/2021 7:15 AM LEAD EMBEDDED SOFTWARE ENGINEER [facility] Division of Pulmonary & Critical Care Medicine [address] [place] [address]; [place] [address]; [place], [place] [address]; [phone] Pulmonary Function Laboratory Pulmonary Stress Test Simple/Oxygen Assessment Patient: Yane Fagan Date: 08/25/2021 Physician: ELIO Ht: 69.5 IN ?? Wt: 139 Room: OP [employer] Tech: JAXON : 1960 Diagnosis: ASTHMA Time(min) Distance [...] Work [distance (m) x body wt (kg)]: 59950 kg.m (normal >60,000 kg.m) Oxygen required to [...] agrees with the written final report. BLAKE ISMS MD PFT performed at:->[facility] Adult PFT Lab- [facility] Procedure:->Spirometry Procedure:->Oxygen Assessment Titration Bi Ware MD PFT ORDERABLES Krystyna l Result documented in this encounter Visit Diagnoses Diagnosis Moderate persistent asthma without complication documented in this encounter Care Teams Operations Administrator Relationship Specialty Start Date End Date Michael Sherman MD [address] [place] [address] PCP - General 01/28/17 Neil Bates MD [address] [address] Consulting Physician Cardiology 03/17/20 documented as of this encounter
--- OUTSIDE RECORDS SUMMARY | 2024-08-24 04:34 | XMS_ITS | Encounter Summary ---
Author Organization [facility] Address [address] [address] Care Team Providers Care Plant Control Operator Name Role Phone Michael Sherman MD Primary Care Prov ider Neil Mancilla MD Unavailable Reason for Referral * Consultation (Routine) - Closed Specialty Diagnoses / Procedures Referred By Contac t Referred To Contact Diagnoses PSVT (paroxysmal supraventricular tachycardia) (HCC) Palpitations Neil Mancilla MD [address] [address] Phone: tel: fax: Neil Mancilla MD [address] [address] Phone: tel: fax: Referral ID Status Reason Start Date Expiration Date V isits Requested Visits Authorized [id number] Closed Specialty Services Required 08/18/2022 09/17/2023 1 1 Question Answer Please select the performing region: [facility] [[id number]] Please select the performing department: [facility] [[id number]] To provider: MADELINE MEJIA [[id number]] # of visits: 1 LETION SUPERVISOR * Cardiology (Routine) - Closed Specialty Diagnoses / Procedures Referred By Contac t Referred To Contact Diagnoses Pulmonary hypertension (HCC) Procedures Transthoracic Echo (TTE) Complete W Doppler/CF Neil Mancilla MD [address] [facility] [address] [place] [address] Phone: tel: fax: [facility] Referral ID Status Reason Start Date Expiration Date Visits Re quested Visits Authorized [id number] Closed 08/18/2022 09/17/2023 1 1 LETION SUPERVISOR Reason for Visit * Reason Comments Follow-up Encounter Details Date Type Department Care Team (Latest Contact Info) Description 08/18/2022 1:15 PM COMPLETION SUPERVISOR Office Visit [facility] Cardiology [address] [place] [phone] Neil Mancilla MD [address] [facility] [facility] [address] [place] [address] PSVT (paroxysmal supraventricular tachycardia) (CMS/HCC) (HCC) (Primary Dx); Palpitations; Status post placement of implantable loop recorder; Pulmonary hypertension (CMS/HCC) (HCC); Lipid screening Social History Tobacco Use Types Packs/Day Years Used Date Smoking Tobacco: Never Smokeless Tobacco: Never Tobacco Cessation:Counseling Given: Not Answered Alcohol Use Standard Drinks/Week Comments No 0 (1 standard drink = 0.6 oz pur e alcohol) Comments No Sex and Gender Information Value Date Recorded Sex Assigned at Not on file Legal Sex Female 11:00 AM COMPLETION SUPERVISOR Gender Identity Not on file Sexual Orientation Not on file documented as of this encounter Last Filed Vital Signs Vital Sign Reading Time Taken Comments Blood Pressure 116/70 08/18/2022 1:26 PM COMPLETION SUPERVISOR Pulse 73 08/18/2022 1:26 PM COMPLETION SUPERVISOR Temperature - - Respiratory Rate - - Oxygen Saturation 93% 08/18/2022 1:26 PM COMPLETION SUPERVISOR Inhaled Oxygen Concentration - - Weight 64.9 kg (143 lb) 08/18/2022 1:26 PM COMPLETION SUPERVISOR Height 177.8 cm (5' 10 ) 08/18/2022 1:26 PM COMPLETION SUPERVISOR Body Mass Index 20.52 08/18/2022 1:26 PM COMPLETION SUPERVISOR documented in this encounter Progress Notes * Neil Mancilla MD - 08/18/2022 1:15 PM CST [facility] FOLLOW UP 08/18/2022 62 y.o. female with past medical history of [...] up with endocrinology, neurology and neurosurgery at [facility]. In light of recurrent episodes of dizziness, patient had implantable commercial front load operator on 10/07/2015.No significant arrhythmias have been found at. On previous follow-up , she reported She lives with her 2 teenage sons. Patient states that she gets episodes of palpitations and dizziness when it is therapy administrative assistant the house. Patient states that she does not have an AC in the house. Denies chest pain, shortness of breath, PND, orthopnea or lower extent he swelling. 12/05/2019 tele visit- This was a telemedicine visit with Yane Fagan which took place via video conference. During the visit, I was located at my home and the tele visit was coordinated by my medical technicians from our cardiology clinic at [facility], [address], [address], [place], [address]. . The patient was located at her [...] proceeding with the telephone / video visit. The patient understands that this service replaces an [...] that time, states that she went to [facility]. She has been experiencing frequent episodes of [...] excessive alcohol. Patient has history of implantable commercial front load operator without recent follow-up. 01/30/2020-on the follow-up visit today, patient reports recurrent episodes of palpitations which happen almost on a daily basis. Her palpitations last for about few seconds to minutes and associatedwith occasional dizziness without syncope. Patient does have longstanding history of palpitations. She has history of implantable commercial front load operator with depleted battery. Her recent 2 week event monitor showed sinus rhythm with episodes of atrial tachycardia. Previous monitor showed episode of SVT. Patient recently had PFTs done which showed moderate obstructive ventilatory defect. 05/21/2020-patient is here for the follow-up visit. She has been evaluated by electrophysiology. Her previous implantable commercial front load operator was explanted and anyone was reimplanted. She continues to have frequent palpitations, last for about 1 minutes each time, several times a week. She was apparently prescribed metoprolol, which patient was unable to tolerate due to symptoms of dizziness. She denies angina, although she has history of occasional chest discomfort which is nonexertional. She has dyspnea on moderate to severe exertion. 08/18/2022-on the follow-up visit today, patient reports dyspnea on qswd-dj-zumcdsdk exertion. She continues to have occasional palpitations with pleuritic chest discomfort, unable to give the frequency of the symptoms. She denies any dizziness or syncope. Patient follows up with pulmonology at [facility]. She has not followed up with electrophysiology since last office visit. Previously, she was unable to tolerate metoprolol due to generalized fatigue and dizziness. REVIEW OF SYSTEMS General ROS: negative for [...] - cough, hemoptysis Cardiovascular ROS: Positive for atypical chest pain, and palpitations Gastrointestinal ROS: negative for - abdominal [...] by oral route every day 0 0 loratadine (CLARITIN) 10 mg tablet Take 1 tablet (10 mg total) by mouth daily 90 tablet 3 montelukast (SINGULAIR) 10 mg tablet Take 1 tablet (10 mg total) by mouth daily 90 tablet 3 qntslaedyqnk-aubp-ggpao acid (Centrum) 18-400 mg-mcg tablet Take by mouth fluticasone propion-salmeteroL (Wixela Inhub) 500-50 mcg/dose diskus inhaler Inhale 1 puff 2 (two) times a day Rinse mouth with water after use. Do not swallow. (Patient not taking: Reported on 08/18/2022) 60 each 11 No current facility-administered medications [...] MR. Mild prolapse of MV. Dilated IVC. ([facility])) - 04/12/2012 ELECTROPHYSIOLOGY: Holter (No correlation [...] Stress Echocardiogram, NEGATIVE for myocardial ischemia. 08/18/2018 [facility] PFT- moderate obstructive ventilatory defect. There [...] triglycerides 198, LDL 60, glucose 124. 08/18/2022 PHYSICAL EXAM Vitals BP 116/70 (BP Location: Left arm, Patient Position: Sitting) Pulse 73 Ht 177.8 cm (5' 10 ) Wt 64.9 kg (143 lb) SpO2 93% BMI 20.52 kg/m?? Physical Examination: General appearance - alert, thin appearing female Mental status - anxious Eyes - extraocular eye movements intact Ears - external earsappear normal, hearing grossly normal Nose - mask in place Mouth - mask in place Neck - supple, no JVD Chest - clear to auscultation Heart - normal rate, regular rhythm, normal S1, S2, no murmurs Abdomen - soft, nontender Neurological - alert, oriented, normal speech Musculoskeletal - no joint tenderness Extremities - no pedal edema Skin - normal coloration, no rash on exposed area ASSESSMENT Clarisse Diagnoses and all orders for this visit: PSVT (paroxysmal supraventricular tachycardia) (CMS/HCC) ([facility]) (Primary) - Ambulatory referral to Cardiology; Future Palpitations - Ambulatory referral to Cardiology; Future Status post placement of implantable loop recorder Pulmonary hypertension (CMS/HCC) (HCC) - Transthoracic Echo (TTE) Complete W Doppler/CF; Future PLAN/RECOMMENDATIONS 62 y.o. female with past medical history of atypical chest pain, recurrent palpitations and dizziness, headache; history of adenocarcinoma lung status post resection. - patient has had recurrent episodes of palpitations. Previous event monitor showed sinus rhythm with episodes of atrial tachycardia and episode of SVT. Patient has been evaluated by electrophysiology. She was unable to tolerate metoprolol which was prescribed for symptomatic relief. Patient was advised to continue to follow up with electrophysiology, and continue to monitor her implantable commercial front load operator for any significant arrhythmias. New referral placed for electrophysiology. - previous noninvasive ischemic workup was negative for ischemia. Previous echocardiogram showed normal LV systolic function, mild pulmonary hypertension. Pulmonary hypertension likely secondary to underlying lung condition. Will repeat echocardiogram with Doppler. -continue to follow-up with PCP and pulmonology. - follow-up in approximately to 12 months or sooner if needed. Neil Mancilla MD LETION SUPERVISOR documented in this encounter Miscellaneous Notes * Addendum Note - Lana Thompson MA - 08/18/2022 1:15 PM CSTAddended by: LANA THOMPSON on: 08/18/2022 01:52 PM Modules accepted: Orders LETION SUPERVISOR documented in this encounter Plan of Treatment Scheduled Referrals Name Type Priority Associated Diagnoses Orde r Schedule Ambulatory referral to Cardiology Outpatient Referral Routine PSVT (paroxysmal supraventricular tachycardia) (CMS/HCC) ([facility]) Palpitations Expected: 09/01/2022 (Approximate), Expires: 08/18/2023 documented as of this encounter Procedures Procedure Name Priority Date/Time Associated Diagnosis Comments POCT LIPID PANEL Routine 08/18/2022 1:51 PM COMPLETION SUPERVISOR Lipid screening documented in this encounter Results * Transthoracic Echo (TTE) Complete W Doppler/CF (09/24/2022 3:19 PM COMPLETION SUPERVISOR) Anatomical Region Laterality Modality Ultrasound 09/24/2022 3:19 PM COMPLETION SUPERVISOR Narrative 09/24/2022 4:09 PM COMPLETION SUPERVISOR [facility] Cardiology [address], [place] [address] [address], [place] [address] P:[phone] P:[phone] Echocardiographic Report Patient Name: YANE FAGAN : 1960 Study Date: 09/24/2022 3:19:34 PM Gender: F Tech: [facility] Ref.Provider: NEIL MANCILLA Height(Cm): 178 BSA: 1.79 Weight(Kg): 64.9 Heart Rate: 68 BP: 124/66 Quality: Good Order Provider: NEIL MANCILLA Procedures: Echocardiographic Report: Transthoracic echocardiogram with [...] Findings: Interpretation Site: Exam was interpreted at [facility]. Left Ventricle: Normal left ventricular systolic function. [...] Signed By: Jam Nunn MD 2022-09-24 16:09:45 COMPLETION SUPERVISOR Procedure Note Jam Nunn MD - 09/24/2022 [facility] Cardiology [address] [facility] [address], [place] [address] [address] [facility] [id number], [place] [address] P:[phone] P:[phone] Echocardiographic Report Patient Name: Rita FAGAN ID: [id number] : [id number] Date: 09/24/2022 3:19:34 PM Gender: FAccession #: [id number] Tech: GMLocation: [place] Ref.Provider: NEIL MANCILLAHeight(Cm): 178 BSA: 1.79Weight(Kg): 64.9 Heart Rate: 68BP: 124/66 Quality: GoodOrder Provider: NEIL MANCILLA Procedures: Echocardiographic Report: Transthoracic echocardiogram with [...] Findings: Interpretation Site: Exam was interpreted at [facility]. Left Ventricle: Normal left ventricular systolic function. [...] Signed By: Jam Nunn MD 2022-09-24 16:09:45 COMPLETION SUPERVISOR us Neil Mancilla MD CV ECHO PROCEDURES Final Result * POCT lipid panel (08/18/2022 1:51 PM COMPLETION SUPERVISOR) Cholesterol, POC 195 mg/dL HDL, POC 95 mg/dL Triglycerides, POC 198 mg/dL LDL Cholesterol POC 60 mg/dL Chol/HDL Ratio, POC 0.6 Non-HDL Cholesterol, POC 100 mg/dL Cholesterol Total, POC 195 mg/dL Capillary blood 08/18/2022 1 :51 PM COMPLETION SUPERVISOR us Neil Mancilla MD POINT OF CARE TEST ORDERABLES Fi nal Result documented in this encounter Visit Diagnoses Diagnosis PSVT (paroxysmal supraventricular tachycardia) (HCC)- Primary Paroxysmal supraventricular tachycardia Palpitations Status post placement of implantable loop recorder Pulmonary hypertension (HCC) Other chronic pulmonary heart diseases Lipid screening Screening for lipoid disorders Pulmonary hypertension (HCC) Other chronic pulmonary heart diseases documented in this encounter Care Teams Plant Control Operator Relationship Specialty Start Date End Date Michael Sherman MD [address] [place] [address] PCP - General 01/28/17 Neil Mancilla MD [address] [address] Consulting Physician Cardiology 03/17/20 documented as of this encounter
--- OUTSIDE RECORDS SUMMARY | 2024-08-24 04:34 | XMS_ITS | Encounter Summary ---
Author Organization [facility] Address [address] [address] Care Team Providers Care Business Developer Name Role Phone Michael Sherman MD Primary Care Prov ider Neil Bates MD Unavailable Reason for Visit * Cardiology (Routine) - Closed Specialty Diagnoses / Procedures Referred By Contac t Referred To Contact Diagnoses Palpitations Procedures DEVICE CHECK - REMOTE Neil Bates MD [address] [place] [address] Phone: tel: fax: [facility] Referral ID Status Reason Start Date Expiration Date Visits Re quested Visits Authorized [id number] Closed 09/15/2021 03/15/2023 1 1 Encounter Details Date Type Department Care Team (Latest Contact Info) Description 04/12/2022 7:15 AM CDT Ancillary Procedure [facility] Cardiology [address] [place] [phone] Palpitations; Status post placement of implantable [...] on file Legal Sex Female 11:00 AM 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 ??Nayn (Imp ) ??Jana (Card - follows) - [facility]. Routine remote. Normal device function. Battery function-Ok. Presenting rhythm-VS, regular 60 bpm. Medications; no cardiac meds listed. No auto or patient recorded episodes noted. See scanned report. Carelink remote f/u 05/24/2022. us Neil Bates MD CV CARDIAC SERVICES PROCEDURES F inal Result documented in this encounter Visit Diagnoses Diagnosis Palpitations Status post placement of implantable loop recorder PSVT (paroxysmal supraventricular tachycardia) (HCC) Paroxysmal supraventricular tachycardia documented in this encounter Care Teams Business Developer Relationship Specialty Start Date End Date Michael Sherman MD [address] [place] [address] PCP - General 01/28/17 Neil Bates MD [address] [address] Consulting Physician Cardiology 03/17/20 documented as of this encounter
--- OUTSIDE RECORDS SUMMARY | 2024-08-24 04:34 | XMS_ITS | Encounter Summary ---
Author Organization [facility] Address [address] [address] Care Team Providers Care Grants Director Name Role Phone Michael Sherman MD Primary Care Prov ider Neil Bates MD Unavailable Reason for Visit * Cardiology (Routine) - Closed Specialty Diagnoses / Procedures Referred By Contac t Referred To Contact Diagnoses Palpitations Procedures DEVICE CHECK - REMOTE Neil Bates MD [address] [place] [address] Phone: tel: fax: [facility] Referral ID Status Reason Start Date Expiration Date Visits Re quested Visits Authorized [id number] Closed 10/15/2020 11/14/2021 1 1 Encounter Details Date Type Department Care Team (Latest Contact Info) Description 02/17/2021 7:30 AM CDT Ancillary Procedure [facility] Cardiology [address] [place] [phone] Palpitations; Status post placement of implantable loop recorder Social History Tobacco Use Types Packs/Day Years Used Date Smoking Tobacco: Never Smokeless Tobacco: Never Alcohol Use Standard Drinks/Week Comments No 0 (1 standard drink = 0.6 oz pur e alcohol) Comments No Sex and Gender Information Value Date Recorded Sex Assigned at Not on file Legal Sex Female 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 Gender Identity Not on file Sexual Orientation Not on file documented as of this encounter Plan of Treatment Not on file documented as of this encounter Procedures Procedure Name Priority Date/Time Associated Diagnosis Comments DEVICE CHECK - REMOTE Routine 02/17/2021 12:10 PM CDT Palpitations documented in this encounter [...] recorder documented in this encounter Care Teams Grants Director Relationship Specialty Start Date End Date Michael Sherman MD [address] [place] [address] PCP - General 01/28/17 Neil Bates MD [address] [facility] [address] [place] [address] Consulting Physician Cardiology 03/17/20 documented as of this encounter
--- OUTSIDE RECORDS SUMMARY | 2024-08-24 04:34 | XMS_ITS | Encounter Summary ---
Author Organization [facility] Address [address] [address] Care Team Providers Care Fish Hatchery Assistant Name Role Phone Michael Sherman MD Primary Care Prov ider Neil Bates MD Unavailable Reason for Referral * Cardiology (Routine) - Closed Specialty Diagnoses / Procedures [facility]erred To Contact Diagnoses Palpitations PAT (paroxysmal atrial tachycardia) (HCC) Procedures DEVICE CHECK - REMOTE Neil Bates MD [address] [address] Phone: tel: fax: [facility] Referral ID Status Reason Start Date Expiration Date Visits Re quested Visits Authorized [id number] Closed 03/30/2021 04/29/2022 1 1 * Cardiology (Routine) - Closed Specialty Diagnoses / Procedures Referred By Contac t Referred To Contact Diagnoses Palpitations PAT (paroxysmal atrial tachycardia) (HCC) Procedures DEVICE CHECK - REMOTE Neil Bates MD [address] [address] Phone: tel: fax: [facility] Referral ID Status Reason Start Date Expiration Date Visits Re quested Visits Authorized [id number] Closed 03/30/2021 04/29/2022 1 1 * Cardiology (Routine) - Closed Specialty Diagnoses / Procedures Referred By Contac t Referred To Contact Diagnoses Palpitations PAT (paroxysmal atrial tachycardia) (HCC) Procedures DEVICE CHECK - REMOTE Neil Bates MD [address] [address] Phone: tel: fax: [facility] Referral ID Status Reason Start Date Expiration Date Visits Re quested Visits Authorized [id number] Closed 03/30/2021 04/29/2022 1 1 * Cardiology (Routine) - Closed Specialty Diagnoses / Procedures Referred By Contac t Referred To Contact Diagnoses Palpitations PAT (paroxysmal atrial tachycardia) (HCC) Procedures DEVICE CHECK - REMOTE Neil Bates MD [address] [address] Phone: tel: fax: [facility] Referral ID Status Reason Start Date Expiration Date Visits Re quested Visits Authorized [id number] Closed 03/30/2021 04/29/2022 1 1 Encounter Details Date Type Department Care Team (Late st Contact Info) Description 03/30/2021 Orders Only [facility] Cardiology [address] [place] [phone] Neil Bates MD [address] [facility] [address] [place] [address] Palpitations (Primary Dx); PAT (paroxysmal atrial tachycardia) (CMS/HCC) (HCC) Social History Tobacco Use Types Packs/Day Years Used Date Smoking Tobacco: Never Smokeless Tobacco: Never Alcohol Use Standard Drinks/Week Comments No 0 (1 standard drink = 0.6 oz pur e alcohol) Comments No Sex and Gender Information Value Date Recorded Sex Assigned at Not on file Legal Sex 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 ??Nany ([place]) ??Jana (Card - follows) - [facility]. ?? Routine remote. Normal device function. Battery function-Ok. ?? Presenting rhythm-VS, regular 68 bpm. Medications; no cardiac meds listed. ?? No auto or patient recorded episodes noted. See scanned report. ?? [facility]link remote f/u 10/26/2021. Result [facility] Neil Bates MD CV CARDIAC SERVICES PROCEDURES F inal Result * DEVICE CHECK - REMOTE (08/03/2021 4:10 PM ROTARY SLICING MACHINE OPERATOR) Anatomical Region Laterality Modality Other Narrative 09/21/2021 3:58 PM ROTARY SLICING MACHINE OPERATOR Medtronic LINQ ILR implanted for Palpitations/PAT on [...] inal Result * DEVICE CHECK - REMOTE (06/22/2021 12:21 PM ROTARY SLICING MACHINE OPERATOR) Anatomical Region Laterality Modality Other Narrative 07/15/2021 8:21 AM ROTARY SLICING MACHINE OPERATOR Medtronic LINQ ILR implanted for Palpitations/PAT on [...] post placement of implantable loop recorder Palpitations PAT (paroxysmal atrial tachycardia) (HCC) Paroxysmal supraventricular tachycardia Status post placement of implantable loop recorder Palpitations PAT (paroxysmal atrial tachycardia) (HCC) Paroxysmal supraventricular tachycardia Status post placement of implantable loop recorder Palpitations PAT (paroxysmal atrial tachycardia) (HCC) Paroxysmal supraventricular tachycardia Status post placement of implantable loop recorder documented in this encounter Care Teams Fish Hatchery Assistant Relationship Specialty Start Date End Date Michael Sherman MD [address] [place] [address] PCP - General 01/28/17 Neil Bates MD [address] [place] [id number] Consulting Physician Cardiology 03/17/20 documented as of this encounter
--- OUTSIDE RECORDS SUMMARY | 2024-08-24 04:34 | XMS_ITS | Encounter Summary ---
Author Organization [facility] Address [address] [address] Care Team Providers Care Pharmacy Order Entry Technician Name Role Phone Michael Sherman MD Primary Care Prov ider Neil Bates MD Unavailable Reason for Visit * Cardiology (Routine) - Closed Specialty Diagnoses / Procedures Referred By Contac t Referred To Contact Diagnoses Palpitations Procedures DEVICE CHECK - REMOTE Neil Bates MD [address] [place] [id number] Phone: tel: fax: [facility] Referral ID Status Reason Start Date Expiration Date Visits Re quested Visits Authorized [id number] Closed 10/15/2020 11/14/2021 1 1 Encounter Details Date Type Department Care Team (Latest Contact Info) Description 01/05/2021 7:30 AM CDT Ancillary Procedure [facility] Cardiology [address] [place] [id number] Palpitations; Status post placement of implantable loop recorder Social History Tobacco Use Types Packs/Day Years Used Date Smoking Tobacco: Never Smokeless Tobacco: Never Alcohol Use Standard Drinks/Week Comments No 0 (1 standard drink = 0.6 oz pur e alcohol) Comments No Sex and Gender Information Value Date Recorded Sex Assigned at Not on file 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 NORMAL DEVICE FUNCTION PROGRAMMED Anti-coagulant(s): ??Aspirin 81 mg daily Anti-arrhythmic(s): ??None Plan: 1) normal Medtronic implantable LINQ loop recorder evaluation 2) Medtronic remote transmission scheduled in1 months. Get Briones R.N. Neil Bates MD [facility] C[facility] SERVICES PROCEDURES F inal Result documented in this encounter Visit Diagnoses Diagnosis Palpitations Status post placement of implantable loop recorder documented in this encounter Care Teams Pharmacy Order Entry Technician Relationship Specialty Start Date End Date Michael Sherman MD [address] [place] [address] PCP - General 01/28/17 Neil Bates MD [address] [facility] [address] [place] [address] Consulting Physician Cardiology 03/17/20 documented as of this encounter
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
--- OUTSIDE RECORDS SUMMARY | 2024-08-24 04:35 | XMS_ITS | Encounter Summary ---
Author Organization [facility] Address [address] [facility] [address] [place] [address] Phone Care Team Providers Care Logistics Account Manager Name Role Phone Martin Sherman MD Primary Care Prov ider Neil Bates MD Unavailable Reason for Referral * (Routine) - Closed Specialty Diagnoses / Procedures Referred By Chelsy t Referred To Contact Diagnoses Moderate persistent asthma, unspecified whether complicated Procedures Pulmonary Function Test -[facility] Adult PFT Lab- CAM-8D; Spirometry Bi Ware MD [address] [facility] [address] [place] [address] Phone: tel: fax: Referral ID Status Reason Start Date Expiration Date Visits Re quested Visits Authorized [id number] Closed 08/21/2020 09/20/2021 1 1 TELLER Encounter Details Date Type Department Care Team (Late st Contact Info) Description 08/21/2020 2:30 PM MAIL TELLER Office Visit [facility] Pulmonary [address] [facility] 8th [place] [address] [place] [address] Bi Ware MD [address] [facility] [address] [place] [address] Moderate persistent asthma, unspecified whether complicated (Primary Dx); Allergic rhinitis, unspecified seasonality, unspecified trigger Social History Tobacco Use Types Packs/Day Years Used Date Smoking Tobacco: Never Smokeless Tobacco: Never Alcohol Use Standard Drinks/Week Comments No 0 (1 standard drink = 0.6 oz pur e alcohol) Comments No Sex and Gender Information Value Date Recorded Sex Assigned at Not on file Legal Sex Female 11:00 AM MAIL TELLER Gender Identity Not on file Sexual Orientation Not on file documented as of this encounter Last Filed Vital Signs Vital Sign Reading Time Taken Comments Blood Pressure 120/70 08/21/2020 2:04 PM MAIL TELLER Pulse 72 08/21/2020 2:04 PM MAIL TELLER Temperature 36.5 ??C (97.7 ??F) 08/21/2020 2:04 PM CS T Respiratory Rate 18 08/21/2020 2:04 PM MAIL TELLER Oxygen Saturation 99% 08/21/2020 2:04 PM MAIL TELLER Inhaled Oxygen Concentration - - Weight 64.4 kg (142 lb) 08/21/2020 2:04 PM MAIL TELLER Height 176.5 cm (5' 9.5 ) 08/21/2020 2:04 PM MAIL TELLER Body Mass Index 20.67 08/21/2020 2:04 PM MAIL TELLER documented in this encounter Ordered Prescriptions Prescription Sig Dispense Quantity Refills Last Filled Start Date End Date albuterol HFA (PROVENTIL HFA,VENTOLIN HFA,PROAIR HFA) 90 mcg/actuation inhaler Inhale 2 puffs every 6 (six) hours as needed for wheezing 1 Inhaler 5 08/21/2020 1 fluticasone propion-salmeteroL (Wixela Inhub) 500-50 mcg/dose diskus inhaler Inhale 1 puff 2 (two) times a day Rinse mouth with water after use. Do not swallow. 60 each 11 08/21/2020 1 albuterol (PROAIR RESPICLICK) 90 mcg/actuation inhaler Inhale 2 puffs every 6 (six) hours as needed for wheezing 1 Inhaler 11 08/21/2020 1 documented in this encounter Progress Notes * Bi Ware MD - 08/21/2020 12:00 AM CST PATIENT NAME: YANE FAGAN : 1960 [address]: 08/21/2020 CHIEF COMPLAINT: Asthma. PROBLEM LIST: 1. Severe persistent asthma, with [...] HISTORY: Yane Fagan returns for follow-up. She was last seen as a telehealth encounter in March. Sincethat time, she reports her asthma has been stable, but she continues to have some difficulty with occasional wheezing. She was prescribed prednisone at the last encounter, which helped. She has not had any exacerbations requiring prednisone since that time. She remains on Wixela 250/50 one puff b.i.d. and albuterol as needed for asthma. She has been using albuterol more often, even up to a coupleof times a day in the last couple of weeks. She attributes this to exposure to secondhand smoke with her mother and her [id number]; in particular, her [id number] smokes heavily. She believes thi s triggers her asthma. She remains on Claritin and Singulair. She saw Cardiology recently for her palpitations, was prescribed metoprolol, reports stopping this because it made her feel lightheaded. REVIEW OF SYSTEMS: Reviewed as per History of Present Illness, all systems negative unless otherwise specified. CURRENT MEDICATIONS: 1. Wixela 250/50 one puff b.i.d. 2. Albuterol 2 puffs q.6 hours p.r.n. 3. Claritin 10 mg daily. 4. Montelukast 10 mg at bedtime. PHYSICAL EXAMINATION: Vital Signs: Blood pressure 120/70, pulse 72, respiratory rate 18, temperature 36.5, oxygen saturation 99% on room air. Weight is 142 pounds. BMI is 21. General: No acute distress. Seated. Pleasant. HEENT: PERRL. OP clear. MMM. Neck: Supple, nontender. No lymphadenopathy. No masses. Cardiovascular: RRR. No M/R/G. Normal S1, S2. Pulmonary: CTAB, unlabored. No wheezing, rales, or rhonchi. Extremities: Warm, well perfused. There is clubbing present. No cyanosis or edema. DATA: Spirometry shows FEV1 of 1.9 L or 64% of predicted. FVC is 3 L or 78% predicted. FEV1/FVC ratio is 64%. This is consistent with moderate obstruction. When compared to previous spirometry, the FEV1 isstable. The FVC has decreased somewhat since November 2019. ASSESSMENT/DIAGNOSES: 1. Moderate persistent asthma. 2. History of lung cancer in 2009, without recurrence. 3. Allergic rhinitis. RECOMMENDATIONS: 1. For asthma, given her increasing use of albuterol and worsening symptoms, we will step up her Wixela to 500/50 one puff b.i.d. She will continue albuterol as needed. There is no evidence of acute exacerbation today. 2. She will continue Singulair and Claritin for allergic rhinitis. 3. Follow-up will be in 6 months' time with spirometry. She will contact us prior to that time withany issues. Bi Ware M.D. Pulmonary and Critical Care Medicine /mt cc: MARTIN SHERMAN MD [address] [place] [address] / TELLER TELLER documented in this encounter Plan of Treatment Not on file documented as of this encounter Results * Pulmonary Function Test - (02/19/2021 2:51 PM CDT) FVC PRE 2.80 L [facility] FVC %PRE PRED 73 % [facility] FEV1 PRE 1.72 L [facility] FEV1 %PRE PRED 57 % [facility] FEV1/FVC PRE 61.6 % [facility] Anatomical Region Laterality Modality PFT 02/19/2021 2:46 PM CDT Narrative 02/26/2021 8:57 AM CDT PFT performed at:->[facility] U Adult PFT Lab- CAM-8D Procedure:->Spirometry UPDATED Bi Gina Ware MD PFT ORDERABLES Krystyna l Result documented in this encounter Visit Diagnoses Diagnosis Moderate persistent asthma, unspecified whether complicated- Primary Allergic rhinitis, unspecified seasonality, unspecified trigger Moderate persistent asthma, unspecified whether complicated documented in this encounter Discontinued Medications Medication Sig Discontinue Reason Start Date End Da te fluticasone propion-salmeteroL (ADVAIR DISKUS) 250-50 mcg/dose diskus inhaler Inhale 1 puff 2 (two) times a day Rinse mouth with water after use. Do not swallow. Alternate therapy 12/13/2019 08/21/2020 albuterol sulfate (PROAIR RESPICLICK) 90 mcg/actuation aerosol powdr breath activated inhale 2 puff by inhalation route every 4 - 6 hours as needed Alternate therapy 12/11/2015 08/21/2020 fluticasone propion/salmeterol (WIXELA INHUB INHAL) Inhale Alternate therapy albuterol (PROAIR RESPICLICK) 90 mcg/actuation inhaler Inhale 2 puffs every 6 (six) hours as needed for wheezing 08/21/2020 08/21/2020 documented as of this encounter Historical Medications * This list may reflect changes made after this encounter. Medication Sig Dispense Quantity Refills Last Filled Start D ate End Date fluticasone propion/salmeterol (WIXELA INHUB INHAL) Inhale 08/21/2020 added in this encounter Care Teams Logistics Account Manager Relationship Specialty Start Date End Date Martin Sherman MD [address] [place] [address] PCP - General 01/28/17 Neil Bates MD [address] [facility] [address] [place] [id number] Consulting Physician Cardiology 03/17/20 documented as of this encounter
--- OUTSIDE RECORDS SUMMARY | 2024-08-24 04:35 | XMS_ITS | Encounter Summary ---
Author Organization [facility] Address [address] [facility] [address] [place] [address] Care Team Providers Care Mica Patcher Name Role Phone Michael Sherman MD Primary Care Prov ider Encounter Details Date Type Department Care Team (Late st Contact Info) Description 12/31/2019 Telephone [facility] Cardiology [address] [facility] [address] [place] [address] Neil Bates MD [address] [address] Social History Tobacco Use Types Packs/Day Years Used Date Smoking Tobacco: Never Smokeless Tobacco: Never Alcohol Use Standard Drinks/Week Comments No 0 (1 standard drink = 0.6 oz pur e alcohol) Comments No Sex and Gender Information Value Date Recorded Sex Assigned at Not on file Legal Sex Female 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 documented in this encounter Plan of Treatment Not on file documented as of this encounter Visit Diagnoses Not on filedocumented in this encounter Care Teams Mica Patcher Relationship Specialty Start Date End Date Michael Sherman MD [address] [place] [address] PCP - General 01/28/17 documented as of this encounter
--- OUTSIDE RECORDS SUMMARY | 2024-08-24 04:35 | XMS_ITS | Encounter Summary ---
Author Organization [facility] Address [address] [place] [address] Care Team Providers Care Distribution Spec Name Role Phone Michael Sherman MD Primary Care Prov ider Reason for Referral * (Routine) - Closed Specialty Diagnoses / Procedures Referred By Chelsy herbert Referred To Contact Diagnoses Palpitations Procedures Event Monitor, 30 Day Event Neil Bates MD [address] [facility] [address] [place] [address] Phone: tel: fax: [facility] Referral ID Status Reason Start Date Expiration Date Visits Re quested Visits Authorized [id number] Closed 12/05/2019 06/15/2021 1 1 Reason for Visit * Reason Comments New Patient Valve Disorder Previous patient see n for MV disease Encounter Details Date Type Department Care Team (Late st Contact Info) Description 12/05/2019 10:45 AM CDT Office Visit [facility] Cardiology [address] [address] [address] [place] [address] Neil Bates MD [address] [facility] [address] [place] [address] Palpitations (Primary Dx); Dizziness Social History Tobacco Use Types Packs/Day Years Used Date Smoking Tobacco: Never Smokeless Tobacco: Never Alcohol Use Standard Drinks/Week Comments No 0 (1 standard drink = 0.6 oz pur e alcohol) Comments No Sex and Gender Information Value Date Recorded Sex Assigned at Not on file 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 New Patient ??? Valve Disorder Previous patient seen for MV disease 59 y.o. female with past medical history of [...] up with endocrinology, neurology and neurosurgery at [facility]. In light of recurrent episodes of dizziness, patient had implantable rn cardiac cath on 10/07/2015.No significant arrhythmias have been found at. On previous follow-up , she reported She lives with her 2 teenage sons. 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 Patient states that she does not have an AC in the house. Denies chest pain, shortness of breath, PND, orthopnea or lower extent he swelling. 12/05/2019 tele visit- This was a telemedicine visit with Yane Fagan which took place via video conference. During the visit, I was located at my home and the tele visit was coordinated by my medical insurance biller from our cardiology clinic at [facility] Cardiology/[facility] group, [address], [address], [place], [address]. . The patient was located at her home. The session started at 1110 and ended at 1129. Total time including review of the chart and documentation was 27 minutes. The patient has been informed that the visit may not be secure and acknowledged the information. I have explained the option of participating in a telephone or video visit during the [facility] emergency to the patient. After being given [...] that time, states that she went to [facility]. She has been experiencing [...] excessive alcohol. Patient has history of implantable rn cardiac cath without recent follow-up. REVIEW OF SYSTEMS General ROS: negative for [...] Positive for atypical chest pain, and palpitations associated with dizziness Gastrointestinal ROS: negative for - abdominal pain Musculoskeletal ROS: negative for - joint pain Neurological ROS: negative for - dizziness, gait disturbance Dermatological ROS: negative for rash HOME MEDICATIONS Allergies Allergen Reactions ??? Adhesive Rash ??? Amoxicillin Rash ??? Doxycycline Other (See comments) and Rash Reaction: Pulmonary toxicity, , ??? Penicillins Rash ??? Procaine Rash ??? Tree Nut Hives ??? Amitriptyline ??? Carbamazepine Rash Reaction: Rash, , ??? Cigarette Smoke Unknown ??? Coconut ??? Coconut Oil Unknown ??? Codeine Hives and Rash Reaction: Hives, Skin Rash, , ??? Divalproex ??? Gabapentin ??? House Dust ??? Hydrocodone ??? Hydromorphone ??? Lamotrigine Unknown ??? Latex ??? Morphine Unknown ??? Oxycodone ??? Peanut ??? Poison Amy Extract ??? Pollens Extract Unknown ??? Potassium Clavulanate Unknown ??? Prochlorperazine Unknown ??? Prochlorperazine Maleate Unknown ??? Shellfish Containing Products ??? Shellfish Derived ??? Topiramate ??? Valproic Acid ??? Valproic Acid Analogues ??? Peanut Oil Vomiting Current Outpatient Medications Medication Sig Dispense Refill ??? albuterol sulfate (PROAIR RESPICLICK) 90 mcg/actuation aerosol powdr breath activated inhale 2 puff by inhalation route every 4 - 6 hours as needed 0 Inhaler 0 ??? aspirin (ASPIR-81) 81 mg tablet take 1 tablet by oral route every day 0 0 ??? loratadine (CLARITIN) 10 mg tablet Take 10 mg by mouth daily ??? montelukast (SINGULAIR) 10 mg tablet ??? Qvar RediHaler 80 mcg/actuation inhaler No current facility-administered medications for this visit. LABS AND OTHER DIAGNOSTIC TESTS Lab Results Component Value Date WBC 6.4 08/17/2018 HGB 11.2 (L) 08/17/2018 HCT 36.1 08/17/2018 MCV 80.6 (L) 08/17/2018 No lab exists for component: LABALBU Lab Results Component Value Date WBC 6.4 08/17/2018 HGB 11.2 (L) 08/17/2018 HCT 36.1 08/17/2018 MCV 80.6 (L) 08/17/2018 Chemistry Component Value Date/Time CO2 30 08/17/20182037 CREATININE 0.95 08/17/20182037 Component Value Date/Time CALCIUM 9.5 08/17/2018 2038 ALKPHOS 87 10/26/2016 1723 AST 26 10/26/2016 1723 ALT 23 10/26/2016 1723 BILITOT 0.2 10/26/2016 1723 Lab Results Component Value Date CHOL 174 [...] MR. Mild prolapse of MV. Dilated IVC. ([facility])) - 04/12/2012 ELECTROPHYSIOLOGY: Holter (No correlation with [...] Stress Echocardiogram, NEGATIVE for myocardial ischemia. 08/18/2018 [facility] PHYSICAL EXAM Physical examination was limited to inspection only via real-time video conference. General appearance - alert, well appearing, and in no distress Mental status -appropriate mood Eyes - extraocular eye movements intact Ears - hearing grossly normal bilaterally Nose - normal and patent Neurological - alert, normal speech ASSESSMENT Clarisse Diagnoses and all orders for this visit: Palpitations (Primary) - TSH reflex to free T4; Future - Event Monitor, 30 Day Event; Future Dizziness PLAN/RECOMMENDATIONS 59 y.o. female with past medical history of atypical chest pain, recurrent dizziness, palpitations,headache; history of adenocarcinoma lung status post resection. Patient has not had regular follow-up with Cardiology. She has been experiencing frequent episodes palpitations associated with dizziness and chest pain with features atypical for ischemia. Previously had implantable rn cardiac cath with likely depleted battery without follow-up. Due to recent recurrent palpitations, placed a 2 week event monitor to evaluate for any significantarrhythmias. Will refer to electrophysiology based on the patient's clinical course and rn cardiac cath results. Check thyroid panel. Follow-up in approximately to 8 weeks or sooner if needed. Neil Bates MD documented in this encounter Miscellaneous Notes * Addendum Note - Deepti Huizar MA - 12/05/2019 10:45 AM CDTAddended by: DEEPTI HUIZAR on: 12/24/2019 03:42 PM Modules accepted: Orders documented in this encounter Plan of Treatment Not on file documented as of this encounter Procedures Procedure Name Priority Date/Time Associated Diagnosis Comments THYROID FUNCTION CASCADE Routine 12/14/2019 Palpitations documented in this encounter Results * Event Monitor, 30 Day Event (01/22/2020 7:18 AM CDT) Anatomical Region Laterality Modality Other 12/15/2019 Narrative 01/22/2020 4:50 PM CDT [employer] Job ID: [id number] [employer] Document ID: [id number] Dictated date/time: [id number] 14-DAY MONITOR ENROLLMENT PERIOD 12/14 to 12/28/2019. INDICATION Dizziness and giddiness. INTERPRETATION This is a 14-day monitor in which the underlying rhythm was predominantly sinus rhythm, sinus tachycardia with infrequent brief atrial runs, the longest of which was 9 beats in duration. ??This was noted on December 15 at 9:04 p.m. with associated patient symptom of heart racing. ??December 14 at 2:32 p.m. patient complained of chest pain with light activities associated with sinus rhythm, heart rate 87 beats per minute without ectopy. ??On December 14 at 8:23 p.m. patient complained of chest pain with moderate activity associated with sinus tachycardia, heart heart rate 101 beats per minute without ectopy. ??December 15 at 12:04 p.m. patient complained of skipped heart beat while resting associated with sinus rhythm, heart rate 69 beats per minute with sinus arrhythmia. ??On December 15 at 2:06 p.m., patient complained of heart racing associated with sinus rhythm, heart rate 79 beats per minute without ectopy. ??On December 16 at 6 p.m. patient complained of chest pain at rest associated with sinus rhythm, heart rate 66 beats per minute without ectopy. ??December 16 at 10:42 p.m. patient with chest pain at rest associated with sinus rhythm, heart rate 55 beats per minute without ectopy. ??December 20 at 6:50 p.m. patient with chest pain with light activity. ??Heart rate 78 beats per minute without ectopy. ??December 23 at 6:09 p.m. patient complained of skipped beats while at rest associated with sinus rhythm, heart rate of 64 beats per minute, with successive 5-beat runs of atrial tachycardia. CONCLUSIONS 1. Underlying is sinus rhythm with symptoms corresponding with sinus rhythm, sinus tachycardia. 2. Brief runs of atrial tachycardia without evidence of atrial fibrillation, atrial flutter, prolonged pauses or high-grade AV block. ?? Clinical correlation advised. JOB ID/VF JOB ID: ??[id number] Electronically Verified By, 01/03/20 3:13 PM Procedure Note Naman Killian MD - 01/22/2020 [email or web address] Job ID: [id number] [email or web address] Document ID: [id number] Dictated date/time: [id number] 14-DAY MONITOR ENROLLMENT PERIOD 12/14 to 12/28/2019. INDICATION Dizziness and giddiness. INTERPRETATION This is a 14-day monitor in which the underlying rhythm was predominantlysinus rhythm, sinus tachycardia with infrequent brief atrial runs, thelongest of which was 9 beats in duration. This was noted on December 15 at9:04 p.m. with associated patient symptom of heart racing. December 14 at2:32 p.m. patient complained of chest pain with light activitiesassociated with sinus rhythm, heart rate 87 beats per minute withoutectopy. On December 14 at 8:23 p.m. patient complained of chest pain withmoderate activity associated with sinus tachycardia, heart heart rate 101beats per minute without ectopy. December 15 at 12:04 p.m. patient complainedof skipped heart beat while resting associated with sinus rhythm, heartrate 69 beats per minute with sinus arrhythmia. On December 15 at 2:06 p.m.,patient complained of heart racing associated with sinus rhythm, heartrate 79 beats per minute without ectopy. On December 16 at 6 p.m. patientcomplained of chest pain at rest associated with sinus rhythm, heart rate 66 beats per minute without ectopy. December 16 at 10:42 p.m. patientwith chest pain at rest associated with sinus rhythm, heart rate 55 beatsper minute without ectopy. December 20 at 6:50 p.m. patient with chest painwith light activity. Heart rate 78 beats per minute without ectopy. at 6:09 p.m. patient complained of skipped beats while at restassociated with sinus rhythm, heart rate of 64 beats per minute, withsuccessive 5-beat runs of atrial tachycardia. CONCLUSIONS 1. Underlying is sinus rhythm with symptoms corresponding with sinusrhythm, sinus tachycardia. 2. Brief runs of atrial tachycardia without evidence of atrialfibrillation, atrial flutter, prolonged pauses or high-grade AV block.Clinical correlation advised. JOB ID/VF JOB ID: [id number] Electronically Verified By, 01/03/20 3:13 PM Neil Bates MD [facility] CARDI[facility] SERVICES PROCEDURES F inal Result * TSH reflex to free T4 (12/14/2019) Blood specimen (specimen) 12/14/2019 Neil Bates MD LAB BLOOD ORDERABLES Final Resul t EXTERNAL LAB documented in this encounter Visit Diagnoses Diagnosis Palpitations- Primary Dizziness Dizziness and giddiness Palpitations documented in this encounter Care Teams Distribution Spec Relationship Specialty Start Date End Date Michael Sherman MD [address] [place] [address] PCP - General 01/28/17 documented as of this encounter
--- OUTSIDE RECORDS SUMMARY | 2024-08-24 04:35 | XMS_ITS | Encounter Summary ---
Author Organization [facility] Address [address] [place] [address] Care Team Providers Care Explosive Ordnance Specialist Name Role Phone Michael Sherman MD Primary Care Prov ider Reason for Visit * Cardiology (Routine) - Closed Specialty Diagnoses / Procedures Referred By Contac t Referred To Contact Diagnoses Palpitations PAT (paroxysmal atrial tachycardia) (HCC) Dizziness Procedures Transthoracic Echo Complete W Doppler/CF Chandler Mancilla MD [address] [address] Phone: tel: fax: [facility] Referral ID Status Reason Start Date Expiration Date Visits Re quested Visits Authorized [id number] Closed 03/07/2020 09/03/2020 1 1 Encounter Details Date Type Department Care Team (Latest Contact Info) Description 03/12/2020 1:00 PM CDT Ancillary Procedure [facility] Cardiology [address] [place] [address] Palpitations; PAT (paroxysmal atrial tachycardia) (CMS/HCC); Dizziness Social History Tobacco Use Types Packs/Day Years Used Date Smoking Tobacco: Never Smokeless Tobacco: Never Alcohol Use Standard Drinks/Week Comments No 0 (1 standard drink = 0.6 oz pur e alcohol) Comments No Sex and Gender Information Value Date Recorded Sex Assigned at Not on file 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 Gender Identity Not on file Sexual Orientation Not on file documented as of this encounter Last Filed Vital Signs Vital Sign Reading Time Taken Comments Blood Pressure - - Pulse - - Temperature 36.4 ??C (97.5 ??F) 03/12/2020 12:58 PM C DT Respiratory Rate - - Oxygen Saturation - - Inhaled Oxygen Concentration - - Weight - - Height - - Body Mass Index - - documented in this encounter Plan of Treatment Not on file documented as of this encounter Procedures Procedure Name Priority Date/Time Associated Diagnosis Comments TRANSTHORACIC ECHO (TTE) COMPLETE W DOPPLER/CF WO CONTRAST Routine 03/12/2020 1:53 PM CDT Palpitations PAT (paroxysmal atrial tachycardia) (CMS/HCC) Dizziness documented in this encounter Results * TRANSTHORACIC ECHO (TTE) COMPLETE W DOPPLER/CF WO CONTRAST (03/12/2020 1:53 PM CDT) Anatomical Region Laterality Modality Ultrasound 03/12/2020 11:5 7 AM CDT Narrative 03/12/2020 4:28 PM CDT [facility] Cardiology [address] [address] [place] [address] [address], [place] [address] P:[phone] P:[phone] Echocardiographic Report Patient Name: YANE FAGAN K : 1960 Study Date: 03/12/2020 11:57:07 AM Gender: F Tech: Location: CT Ref.Provider: MARIS Height(Cm): 178 BSA: 1.76 Weight(Kg): 60.33 Heart Rate: 61 BP: 105/60 Quality: Good Order Provider: CHANDLER MANCILLA Procedures: Echocardiographic Report: Transthoracic echocardiogram with complete 2D, M-Mode, and color Doppler examination. Indications: Cardiac Arrhythmia, Dizziness, and Palpitations. Measurements: 2D/M Mode Doppler Measurement Value Normal Range Measurement Value Normal Range EF Mod 64 ??AV Mean PG 3 mmHg EF MM 67 [ 55 - 70 ] % AV Peak Leon 1.24 m/s LVIDd MM 3.68 [ 3.90 - 5.30 ] cm AV Peak PG 6 mmHg LVIDs MM 2.33 [ 2.30 - 3.90 ] cm AV VTI 0.25 cm LVPWd MM 0.93 [ 0.60 - 1.00 ] cm LVOT Peak Leon 0.77 [ 0.70 - 1.10 ] m/s IVSd MM 0.93 [ 0.60 - 0.90 ] cm LVOT VTI 0.17 cm LA Dimension MM 3.21 [ 2.70 - 3.80 ] cm MV E Peak Leon 0.78 [ 0.60 - 1.30 ] m/s AoR Diam MM 3.21 [ 2.60 - 3.70 ] cm MV A Peak Leon 0.53 [ 0.40 - 0.80 ] m/s LA Volume Index 23.00 [ 16.00 - 28.00 ] cc/m2 MV Decel Time 188 [ 150 - 200 ] msec ACS MM 1.98 cm PV Peak Leon 0.72 [ 0.40 - 0.80 ] m/s TR Peak Leon 2.54 [ 0.40 - 0.80 ] m/s TR Peak PG 26 mmHg RVSP 34.00 mmHg E' 0.12 E/E' 6 Findings: Interpretation Site: Exam was interpreted at [facility]. Left Ventricle: Normal left ventricular size. Normal left ventricular wall thickness. Normal global left ventricular systolic function. Normal left ventricular diastolic function. Ejection fraction is visually estimated at 60-65 %. Right Ventricle: Normal right ventricular size. Normal right ventricular systolic function. Left Atrium: The left atrium is normal in size. Right Atrium: The right atrium is normal in size. Atrial Septum: Normal atrial septum. Mitral Valve: Normal appearance of the mitral valve. Trivial regurgitation of the mitral valve. Aortic Valve: Normal appearance of the aortic valve. Tricuspid Valve: Normal appearance of the tricuspid valve. Mild pulmonary hypertension based on right ventricular systolic pressure. Estimated peak RVSP is 41 mmHg. Mild to moderate tricuspid regurgitation. Pulmonic Valve: Normal appearance of the pulmonic valve. Pericardium: Normal pericardium with no significant pericardial effusion. Aorta: Normal aortic root. IVC: Dilated IVC with respiratory collapse consistent with elevated right atrial pressure (10-15 mmHg). Conclusions: Normal left ventricular size and wall thickness. Normal LV systolic and diastolic function. Ejection fraction is visually estimated at 60-65 %. Normal appearance of the mitral valve. Trivial regurgitation of the mitral valve. Normal appearance of the aortic valve. No stenosis. Mild pulmonary hypertension. Estimated peak RVSP 41 mmHg. Mild to moderate tricuspid regurgitation. Normal sinus rhythm. Electronically Signed By: Chandler Mancilla MD, [facility] 2020-03-12 16:28:29 CDT Procedure Note Chandler Mancilla MD - 03/12/2020 [facility] Cardiology [address] [facility] [place] [address], [place] [address] P:[phone] P:[phone] Echocardiographic Report Patient Name: YANE FAGAN K : 1960 Study Date: 03/12/2020 11:57:07 AM Gender: F Tech: Location: CT Ref.Provider: MARIS Height(Cm): 178 BSA: 1.76 Weight(Kg): 60.33 Heart Rate: 61 BP: 105/60 Quality: Good Order Provider: CHANDLER MANCILLA Procedures: Echocardiographic Report: Transthoracic echocardiogram with complete 2D, M-Mode, and color Dopplerexamination. Indications: Cardiac Arrhythmia, Dizziness, and Palpitations. Measurements: 2D/M Mode Doppler Measurement Value Normal Range Measurement Value Normal Range EF Mod 64 AV Mean PG 3 mmHg EF MM 67 [ 55 - 70 ] % AV Peak Leon 1.24 m/s LVIDd MM 3.68 [ 3.90 - 5.30 ] cm AV Peak PG 6 mmHg LVIDs MM 2.33 [ 2.30 - 3.90 ] cm AV VTI 0.25 cm LVPWd MM 0.93 [ 0.60 - 1.00 ] cm LVOT Peak Leon 0.77 [ 0.70 - 1.10 ] m/s IVSd MM 0.93 [ 0.60 - 0.90 ] cm LVOT VTI 0.17 cm LA Dimension MM 3.21 [ 2.70 - 3.80 ] cm MV E Peak Leon 0.78 [ 0.60 - 1.30 ]m/s AoR Diam MM 3.21 [ 2.60 - 3.70 ] cm MV A Peak Leon 0.53 [ 0.40 - 0.80 ]m/s LA Volume Index 23.00 [ 16.00 - 28.00 ] cc/m2 MV Decel Time 188 [ 150 -200 ] msec ACS MM 1.98 cm PV Peak Leon 0.72 [ 0.40 - 0.80 ] m/s TR Peak Leon 2.54 [ 0.40 - 0.80 ] m/s TR Peak PG 26 mmHg RVSP 34.00 mmHg E' 0.12 E/E' 6 Findings: Interpretation Site: Exam was interpreted at [facility]. Left Ventricle: Normal left ventricular size. Normal left ventricular wall thickness.Normal global left ventricular systolic function. Normal left ventricular diastolic function.Ejection fraction is visually estimated at 60-65 %. Right Ventricle: Normal right ventricular size. Normal right ventricular systolicfunction. Left Atrium: The left atrium is normal in size. Right Atrium: The right atrium is normal in size. Atrial Septum: Normal atrial septum. Mitral Valve: Normal appearance of the mitral valve. Trivial regurgitation of the mitralvalve. Aortic Valve: Normal appearance of the aortic valve. Tricuspid Valve: Normal appearance of the tricuspid valve. Mild pulmonary hypertensionbased on right ventricular systolic pressure. Estimated peak RVSP is 41 mmHg. Mild tomoderate tricuspid regurgitation. Pulmonic Valve: Normal appearance of the pulmonic valve. Pericardium: Normal pericardium with no significant pericardial effusion. Aorta: Normal aortic root. IVC: Dilated IVC with respiratory collapse consistent with elevated rightatrial pressure (10-15 mmHg). Conclusions: Normal left ventricular size and wall thickness. Normal LV systolic anddiastolic function. Ejection fraction is visually estimated at 60-65 %. Normal appearance of the mitral valve. Trivial regurgitation of the mitralvalve. Normal appearance of the aortic valve. No stenosis. Mild pulmonary hypertension. Estimated peak RVSP 41 mmHg. Mild to moderatetricuspid regurgitation. Normal sinus rhythm. Electronically Signed By: Chandler Mancilla MD, [facility] 2020-03-12 16:28:29 CDT us Chandler Mancilla MD CV ECHO PROCEDURES Final Result documented in this encounter Visit Diagnoses Diagnosis Palpitations PAT (paroxysmal atrial tachycardia) (HCC) Paroxysmal supraventricular tachycardia Dizziness Dizziness and giddiness documented in this encounter Care Teams Explosive Ordnance Specialist Relationship Specialty Start Date End Date Michael Sherman MD [address] [place] [address] PCP - General 01/28/17 documented as of this encounter
--- OUTSIDE RECORDS SUMMARY | 2024-08-24 04:35 | XMS_ITS | Encounter Summary ---
Author Organization [facility] Address [address] [place] [address] Care Team Providers Care Vocational Training Teacher Name Role Phone Michael Sherman MD Primary Care Prov ider Reason for Visit * (Routine) - Closed Specialty Diagnoses / Procedures Referred By Chelsy herbert Referred To Contact Diagnoses Palpitations Procedures Event Monitor, 30 Day Event Neil Bates MD [address] [address] Phone: tel: fax: [facility] Referral ID Status Reason Start Date Expiration Date Visits Re quested Visits Authorized [id number] Closed 12/05/2019 06/15/2021 1 1 Encounter Details Date Type Department Care Team (Late st Contact Info) Description 12/05/2019 10:30 AM CDT Ancillary Procedure [facility] Cardiology [address] [place] [address] Palpitations Social History Tobacco Use Types Packs/Day Years Used Date Smoking Tobacco: Never Smokeless Tobacco: Never Alcohol Use Standard Drinks/Week Comments No 0 (1 standard drink = 0.6 oz pur e alcohol) Comments No Sex and Gender Information Value Date Recorded Sex Assigned at Not on file 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 Gender Identity Not on file Sexual Orientation Not on file documented as of this encounter Plan of Treatment Not on file documented as of this encounter Procedures Procedure Name Priority Date/Time Associated Diagnosis Comments EVENT MONITOR Routine 01/22/2020 7:18 AM CDT Palpitations documented in this encounter Results * Event Monitor, 30 Day Event (01/22/2020 7:18 AM CDT) Anatomical Region Laterality Modality Other 12/15/2019 Narrative 01/22/2020 4:50 PM CDT [facility] Job ID: [id number] [facility] Document ID: [id number] Dictated date/time: [id number] 14-DAY MONITOR ENROLLMENT PERIOD 12/14 to 12/28/2019. [...] Clinical correlation advised. JOB ID/VF JOB ID: [id number] Electronically Verified By, 01/03/20 3:13 PM Procedure Note Naman Killian MD - 01/22/2020 [facility] Job ID: [id number] [facility] Document ID: [id number] Dictated date/time: [id number] 14-DAY MONITOR ENROLLMENT PERIOD 12/14 to 12/28/2019. [...] block.Clinical correlation advised. JOB ID/VF JOB ID: [id number] Electronically Verified By, 01/03/20 3:13 PM us Neil Bates MD [facility] PROCEDURES F inal Result documented in this encounter Visit Diagnoses Diagnosis Palpitations documented in this encounter Care Teams Vocational Training Teacher Relationship Specialty Start Date End Date Michael Sherman MD [address] [place] [address] PCP - General 01/28/17 documented as of this encounter
--- OUTSIDE RECORDS SUMMARY | 2024-08-24 04:35 | XMS_ITS | Encounter Summary ---
Author Organization [facility] Address [address] [address] Care Team Providers Care Emergency Room Registered Nurse Name Role Phone Michael Sherman MD Primary Care Prov ider Neil Bates MD Unavailable Reason for Visit * (Routine) - Closed Specialty Diagnoses / Procedures Referred By Contac t Referred To Contact Diagnoses Palpitations PAT (paroxysmal atrial tachycardia) (HCC) Status post placement of implantable loop recorder Procedures DEVICE CHECK - REMOTE Neil Bates MD [address] [place] [address] Phone: tel: fax: [facility] Referral ID Status Reason Start Date Expiration Date Visits Re quested Visits Authorized [id number] Closed 03/18/2020 04/17/2021 1 1 Encounter Details Date Type Department Care Team (Latest Contact Info) Description 06/09/2020 8:15 AM CDT Ancillary Procedure [facility] Cardiology [address] [place] [phone] Palpitations; PAT (paroxysmal atrial tachycardia) (CMS/HCC); [...] on file 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 Nany (Dudley CHAMPAGNE) Jana (Card - follows) - [facility]. Routine remote. Normal device function. Battery function-Ok. Presenting rhythm-VS, regular. Medications; no cardiac meds listed. 5-Symptom episodes recorded, iegm's SR with short burst of ST, PAC's, and SR. See scanned report. [facility] remote f/u 07/21/2020. WARE DEVELOPER MANAGER documented in this encounter Plan of Treatment Not on file documented as of this encounter Procedures Procedure Name Priority Date/Time Associated Diagnosis Comments DEVICE CHECK - REMOTE Routine 06/09/2020 3:17 PM CDT Palpitations PAT (paroxysmal atrial tachycardia) ([facility]) Status post placement of implantable loop recorder documented in this encounter Results * DEVICE CHECK - REMOTE (06/09/2020 3:17 PM CDT) Anatomical Region Laterality Modality Other Narrative 07/04/2020 10:05 AM SOFTWARE DEVELOPER MANAGER Medtronic LINQ ILR implanted for Palpitations/PAT on 03/17/2020. ??Nany (Dudley CHAMPAGNE) ??Jana (Card - follows) - [facility]. ?? Routine remote. Normal device function. Battery function-Ok. Presenting rhythm-VS, regular. Medications; no cardiac meds listed. 5-Symptom episodes recorded, iegm's SR with short burst of ST, PAC's, and SR. See scanned report. [facility] remote f/u 07/21/2020. Neil Bates MD [facility] CARDIAC SERVICES PROCEDURES F inal Result documented in this encounter Visit Diagnoses Diagnosis Palpitations PAT (paroxysmal atrial tachycardia) (HCC) Paroxysmal supraventricular tachycardia Status post placement of implantable loop recorder documented in this encounter Care Teams Emergency Room Registered Nurse Relationship Specialty Start Date End Date Michael Sherman MD [address] [place] [address] PCP - General 01/28/17 Neil Bates MD [address] [address] Consulting Physician Cardiology 03/17/20 documented as of this encounter
--- OUTSIDE RECORDS SUMMARY | 2024-08-24 04:35 | XMS_ITS | Encounter Summary ---
Author Organization [facility] Healthcare Address [address] [place] [address] Care Team Providers Care Back Hand Name Role Phone Michael Sherman MD Primary Care Prov ider Neil Bates MD Unavailable Encounter Details Date Type Department Care Team (Late st Contact Info) Description 03/17/2020 11:30 AM CDT - 03/17/2020 12:30 PM CDT Surgery [facility] [address] [place] [id number] Luca Ayon MD [address] [address] IMPLANTABLE CARDIAC EVENT MONITOR INSERTION 84957 MDT Surgery Details Date/Time Status Location OR Service Patient Class Case Class Case Type Trauma Case? 03/17/2020 11:30 AM Posted [facility] CARDIAC IRRIGATOR SPRINKLING SYSTEM CCL RCVY RM Procedures Cardiovascular Outpatient Elective Panel 1 Procedure LRB Anes Op Region Wound Class Comments IMPLANTABLE CARDIAC EVENT [place] NITOR INSERTION 57860 MDT N/A None IMPLANTABLE CARDIAC EVENT [place] NITOR REMOVAL 57891 MDT N/A None Surgeon Surgeon Role Service Panel Luca Ayon MD Primary Cardiovascular 1 Case Notes ORDERS ENTEREDMolina NPR ref# [id number]/explant/medtronic notified documented in this encounter Social History Tobacco Use Types Packs/Day Years Used Date Smoking Tobacco: Never Smokeless Tobacco: Never Alcohol Use Standard Drinks/Week Comments No 0 (1 standard drink = 0.6 oz pur e alcohol) Comments No Sex and Gender Information Value Date Recorded Sex Assigned at Not on file 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 Gender Identity Not on file Sexual Orientation Not on file documented as of this encounter Last Filed Vital Signs Vital Sign Reading Time Taken Comments Blood Pressure 104/65 03/17/2020 12:05 PM CDT Pulse 67 03/17/2020 12:05 PM CDT Temperature - - Respiratory Rate 22 03/17/2020 12:05 PM CDT Oxygen Saturation 99% 03/17/2020 12:05 PM CDT Inhaled Oxygen Concentration - - Weight 60.3 kg (133 lb) 03/17/2020 11:01 AM CDT Height 177.8 cm (5' 10 ) 03/17/2020 11:01 AM CDT Body Mass Index 19.08 03/17/2020 11:01 AM CDT documented in this encounter Discharge Instructions * Discharge Instructions* Ruba Thomason, MICHAEL - 03/17/2020 12:10 PM CDT Images from the original note were not included. Cardiac Laboratory [facility] [place], [place] [address] [facility] Discharge Instructions---LINQ Insertable Cardiac Monitoring System A Cardiac Monitoring System has been inserted in your chest for MEDICATIONS [] Home Medications Returned [] Discharge Medication Reconciliation Reviewed [] Prescriptions sent home with patient and instructions given for usage [x] ANTIBIOTICS What you Should Know Information provided and reviewed. INCISION CARE DO NOT apply any kind of powder or lotion to your incision [x] Keep your incision site as dry as possible. [x] DO NOT submerge your incision site in any water until it is healed. This includes pools, tub baths, lakes, martinez, ponds and hot tubs. [x] You may shower, do not scrub the wound. [] Your physician has used surgical glue on your incision. Allow it ot slough off-do not attempt toremove this adhesive. A complete Setup Guide has been provided for you to take home. The basic setup steps are as follows: Your bedside monitor will automatically transmit data each night. If your Physician requests an additional transmission, you can follow the instructions below to send data: [] Your monitoring system MAY include an activator ( Patient Director Of Creative Services ) to manually gaby events should you experience the symptoms for which your monitor was inserted. Your inserting physician will determine if this equipment is necessary for your situation. Should you need to manually gaby an event and then transmit that event via your bedside monitor, please notify the [facility] (8Tuesday through Tuesday or the next day) at [phone] so your transmission can be reviewed. SPECIAL INSTRUCTIONS: Your Cardiac Monitoring System is not intended for 911 Emergency situations. If you believe that your symptoms warrant Emergency Care, please seek attention at the nearest Emergency Room or Urgent Care Center. FOLLOW UP CARE [] Call physician's office for appointment / wound check [] Appointment scheduled for: with Additional Instructions: I understand and have received a copy of my discharge instructions Patient/Family Signature: Date: Staff Signature/Title: Date: Medtronic Project Design Engineer: Date: Cardiac Laboratory [address] [place], [place] [address] [facility] Discharge Instructions---LINQ Insertable Cardiac Monitoring System A Cardiac Monitoring System has been inserted in your chest for MEDICATIONS [] Home Medications Returned [] Discharge Medication Reconciliation Reviewed [] Prescriptions sent home with patient and instructions given for usage [x] ANTIBIOTICS What you Should Know Information provided and reviewed. INCISION CARE DO NOT apply any kind of powder or lotion to your incision [x] Keep your incision site as dry as possible. [x] DO NOT submerge your incision site in any water until it is healed. This includes pools, tub baths, lakes, martinez, ponds and hot tubs. [x] You may shower, do not scrub the wound. [] Your physician has used surgical glue on your incision. Allow it ot slough off-do not attempt toremove this adhesive. A complete Setup Guide has been provided for you to take home. The basic setup steps are as follows: Your bedside monitor will automatically transmit data each night. If your Physician requests an additional transmission, you can follow the instructions below to send data: [] Your monitoring system MAY include an activator ( Patient Director Of Creative Services ) to manually gaby events should you experience the symptoms for which your monitor was inserted. Your inserting physician will determine if this equipment is necessary for your situation. Should you need to manually gaby an event and then transmit that event via your bedside monitor, please notify the [facility] (8-Tuesday through Tuesday or the next day) at [phone] so your transmission can be reviewed. SPECIAL INSTRUCTIONS: Your Cardiac Monitoring System is not intended for 911 Emergency situations. If you believe that your symptoms warrant Emergency Care, please seek attention at the nearest Emergency Room or Urgent Care Center. FOLLOW UP CARE [] Call physician's office for appointment / wound check [] Appointment scheduled for: with Additional Instructions: I understand and have received a copy of my discharge instructions Patient/Family Signature: Date: Staff Signature/Title: Date: Medtronic Project Design Engineer: Date: documented in this encounter Medications at Time of Discharge aspirin (ASPIR-81) 81 mg tablet take 1 tablet by oral route every day 0 0 12/11/2015 albuterol sulfate (PROAIR RESPICLICK) 90 mcg/actuation aerosol powdr breath activated inhale 2 puff by inhalation route every 4 - 6 hours as needed 0 Inhaler 0 12/11/2015 1 fluticasone propion-salmeter oL (ADVAIR DISKUS) 250-50 mcg/dose diskus inhaler Inhale 1 puff 2 (two) times a day Rinse mouth with water after use. Do not swallow. 60 each 11 12/13/2019 1 loratadine (CLARITIN) 10 mg tablet Take 10 mg by mouth daily 10/01/2019 1 metoprolol tartrate (LOPRESSOR) 25 mg immediate release tablet Take 1 tablet (25 mg total) by mouth 2 (two) times a day 60 tablet 11 02/27/2020 0 montelukast (SINGULAIR) 10 mg tablet Take 10 mg by mouth nightly 10/01/2019 1 montelukast (SINGULAIR) 10 mg tablet Take 10 mg by mouth daily 10/01/2019 2 documented as of this encounter Discharge Disposition Disposition Code Departure Means Destination Discharge to home or self care documented in this encounter H&P Notes * Luca Ayon MD - 03/17/2020 11:36 AM CDT I have reviewed the H&P, examined the patient, and endorse the findings as written. Plan of Care : Based on the above findings, I consider Yane Fagan to be an acceptable risk for : Procedure(s): IMPLANTABLE CARDIAC EVENT MONITOR INSERTION 88151 MDT IMPLANTABLE CARDIAC EVENT MONITOR REMOVAL 80073 MDT Source Note - Luca Ayon MD - 02/27/2020 11:15 AM CDT Patient ID: Yane Fagan is a 59 y.o. female Chief Complaint Palpitations HPI Ms. Fagan [facility] on [facility]27[facility]. Patient seen in consultation to Dr Bates patient reports long history of palpitations. She has occasional presyncope episodes once or twice a year. Precipitated by cold weather. No Full syncope I reviewed ILR recordings no arrhythmias. Average heart rate is normal .normal rate histogram She describes symptoms of skipped beat pounding sensation. Occurs twice a day. She also has some racing heartbeat. EKG today sinus rhythm narrow QRS normal QT. Patient has past history significant for pulmonary adenocarcinoma status post resection. She has had atypical chest pain with a negative workup. Echo reported to show preserved LV function Records indicate previous cardiac monitoring did not show significant arrhythmias Patient had a loop recorder placed 2016 no arrhythmias had been found Echo 2012 EF 55% prior Holter 2011 notes indicate patient had symptoms that did not correlate to arrhythmia. Nuclear scan negative for ischemia EF 50% Stress echo negative for ischemia August event monitor reported to show sinus rhythm with symptoms corresponded to sinus rhythm sinus tachycardia brief runs of atrial tachycardia I reviewed rhythm strip. There was some brief nonsustained supraventricular arrhythmia but overall only sinus rhythm and sinus tachycardia Old records reviewed Current Outpatient Medications: ??? albuterol sulfate (PROAIR RESPICLICK) 90 mcg/actuation aerosol powdr breath activated, inhale 2puff by inhalation route every 4 - 6 hours as needed, Disp: 0 Inhaler, Rfl: 0 ??? aspirin (ASPIR-81) 81 mg tablet, take 1 tablet by oral route every day, Disp: 0, Rfl: 0 ??? fluticasone propion-salmeteroL (ADVAIR DISKUS) 250-50 mcg/dose diskus inhaler, Inhale 1 puff 2 (two) times a day Rinse mouth with water after use. Do not swallow., Disp: 60 each, Rfl: 11 ??? loratadine (CLARITIN) 10 mg tablet, Take 10 mg by mouth daily, Disp: , Rfl: ??? montelukast (SINGULAIR) 10 mg tablet, , Disp: , Rfl: Past Medical History: Diagnosis Date ??? Asthma Asthma ??? Asthma Asthma; Comments: [facility] 10/10/2014 - ??? Brain concussion Multiple .....Last Jun 2018 ??? Cancer of lung (CMS/HCC) Cancer, lung ??? Cerebrovascular accident (CVA) (CMS/HCC) Stroke ??? Chronic bronchitis (CMS/HCC) 2009 ??? Clotting disorder (CMS/HCC) 196 ??? Depression Depression ??? Emphysema of lung (CMS/HCC) 2015 ??? HX OTHER MEDICAL NSCLC 1a- adenocarcinoma ??? HX OTHER MEDICAL palpitations ??? HX OTHER MEDICAL 2012 Small lacunar infarct- basal ganglia ??? HX OTHER MEDICAL hx gestational diabetes ??? HX OTHER MEDICAL chronic bronchitis ??? HX OTHER MEDICAL ENCEPHALITIS ??? HX OTHER MEDICAL seizure disorder; Comments: [facility] 10/10/2014 - ??? HX OTHER MEDICAL encephalitis; Comments: [facility] 10/10/2014 - ??? HX OTHER MEDICAL 2010 lung cancer surgery; Comments: [facility] 10/10/2014 - ??? HX OTHER MEDICAL scoliosis; Comments: [facility] 10/10/2014 - ??? HX OTHER MEDICAL carpal tunnel; Comments: [facility] 10/10/2014 - ??? HX OTHER MEDICAL headaches; Comments: [facility] 10/10/2014 - ??? HX OTHER MEDICAL neuropathy; Comments: [facility] 10/10/2014 - ??? HX OTHER MEDICAL 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 ??? Migraines 2009 ??? Neuromuscular disorder (CMS/HCC) 2009 ??? Peptic ulceration 1970 ??? Seizure disorder (CMS/HCC) Seizure disorder ??? Thyroid disease 1970 Family History Problem Relation Age of Onset ??? Prostate cancer Father Cancer, prostate; Cause of : Cancer, prostate/Prostate Cancer - (Added by TW Conv) ??? Liver cancer Father Cancer, liver; Cause of : Cancer, liver ??? Diabetes Father Diabetes mellitus; /Diabetes Mellitus - (Added by TW Conv) ??? Lung cancer Father Family history of lung cancer - (Added by TW Conv) ??? Cancer Father ??? Hypertension Father ??? Vision loss Father ??? Obesity Father ??? Diabetes Other Family history of Diabetes mellitus; ??? Asthma Other Family history of Asthma; ??? Hypertension Other Family history of Hypertension; ??? Other Other Family history of Bleeding tendencies; ??? Osteoarthritis Other Family history of Osteoarthritis; ??? Cancer Other Family history of Cancer; ??? Stroke Other Family history of Stroke; ??? Neuropathy Sister Neuropathy; ??? Arthritis Mother arthritis; ??? Other Mother chronic bronchitis; ??? Allergy (severe) Mother ??? Asthma Mother ??? COPD Mother ??? Clotting disorder Mother ??? Lung cancer Maternal Grandfather Family history of lung cancer - Relation: Grandfather (Added by TW Conv) ??? Emphysema Maternal Grandfather Emphysema, compensatory - Relation: Grandfather (Added by TW Conv) ??? Heart disease Maternal Grandfather Family history of cardiac disorder - Relation: Grandfather (Added by TW Conv) ??? Cancer Maternal Grandfather ??? COPD Maternal Grandfather ??? Heart disease Other Family history of cardiac disorder - (Added by TW Conv) ??? Hypertension Other Family history of hypertension - Relation: Grandmother (Added by TW Conv) ??? Heart failure Maternal Great-Grandfather Family history of congestive heart failure - (Added by TW Conv) ??? Alzheimer's disease Paternal Grandmother ??? Arthritis Maternal Grandmother ??? Hypertension Maternal Grandmother ??? Memory loss Maternal Grandmother ??? Vision loss Maternal Grandmother ??? Arthritis Mother's Brother ??? Heart disease Mother's Brother ??? Arthritis Mother's Sister ??? Cancer Mother's Sister ??? Heart disease Mother's Sister ??? Asthma Daughter ??? Depression Daughter ??? Rashes / Skin problems Daughter ??? Obesity Daughter ??? Cancer Paternal Grandfather ??? Diabetes Paternal Grandfather ??? Cancer Sister ??? Depression Son ??? Rashes / Skin problems Son ??? Vision loss Son ??? Obesity Son ??? Depression Son Social History Tobacco Use ??? Smoking status: Never Smoker ??? Smokeless tobacco: Never Used Substance Use Topics ??? Alcohol use: No Review of Systems Constitutional: Negative. HENT: Negative. Eyes: Negative. Respiratory: Negative. Cardiovascular: Negative. Gastrointestinal: Negative. Endocrine: Negative. Genitourinary: Negative. Skin: Negative. Neurological: Negative. Hematological: Negative. Psychiatric/Behavioral: Negative. Physical Exam BP 108/60 Pulse 73 Ht 177.8 cm (5' 10 ) Wt 60.4 kg (133 lb 3.2 oz) BMI 19.11 kg/m?? Constitutional: No distress. Head: Normocephalic. Nose: Nose normal. Mouth/Throat: Mucous membranes are normal. Eyes: EOM are normal. Neck: Normal range of motion. Cardiovascular: Regular rhythm, S1 normal and S2 normal. Pulmonary/Chest: Effort normal and breath sounds normal. Abdominal: Soft. Normal appearance. Neurological: alert, oriented to person, place, and time and easily aroused. Skin: warm and dry. Psychiatric: normal mood and affect. Musculoskeletal: No joint inflammation Impression: palpitations. Due to an increase in cardiac awareness. We discussed the benign nature of this finding. We discussed favorable prognosis in view of normal heart and no significant arrhythmia. Will focus on treating symptoms. I also explained that this is often difficult to treat ILR at end of service. Explantation is recommended. Patient wishes to have another ILR reimplanted. Plan: Metoprolol 25 mg b.i.d.. May take p.r.n. as well ILR explant /implant . Risks and benefits discussed Luca Ayon MD 02/27/2020 documented in this encounter Plan of Treatment Not on file documented as of this encounter Procedures Procedure Name Priority Date/Time Associated Diagnosis Comments LOOP RECORDER REMOVAL Routine 03/17/2020 12:02 PM CDT Palpitations PSVT (paroxysmal supraventricular tachycardia) (CMS/HCC) LOOP INSERTION Routine 03/17/2020 12:02 PM CDT Palpitations PSVT (paroxysmal supraventricular tachycardia) (CMS/HCC) documented in this encounter Results * LOOP INSERTION, LOOP RECORDER REMOVAL (03/17/2020 12:02 PM CDT) Anatomical Region Laterality Modality X-Ray Angiograph y Narrative 03/17/2020 4:53 PM CDT Procedure: ??ILR explantation Complications: ??None Indication: ??ILR at end of service. ? Description of procedure: After informed consent was obtained the patient brought to the EP lab holding area. ??The left chest was prepped and draped in a sterile fashion. 1% lidocaine was infiltrated over the ILR site. ??A 4 mm incision was made with a scalpel blade and the ILR was explanted with blunt dissection. ?? Hemostasis was assured, and Dermabond was applied. The device was originally implanted in an inframammary location. ??Patient states that this site has been satisfactory and we will reimplant at the same site.. Explanted device information: ??[id number] Conclusion Successful explantation of ILR Luca Ayon MD Procedure: ??Placement of a loop recorder. History: ?? Palpitations Method: ?? After informed consent was obtained, the patient was brought to the EP laboratory holding area. ?? The left chest was prepared and draped in a sterile fashion. Local anesthesia was injected in the subcutaneous tissue. The ILR was injected under the skin at the site of the old, explanted device. ??Medical adhesive was applied. ??Device was programmed to final settings and the patient was instructed in its use. There were no complications.. Device Data: [id number] Conclusion: ?? Successful placement of an ILR Recommendations: 1. ??Followup in the Device Clinic Luca Ayon MD Luca Ayon MD CV ELECTROPHYSIOLOGY PROCS Final Result documented in this encounter Visit Diagnoses Diagnosis Palpitations PSVT (paroxysmal supraventricular tachycardia) (HCC) Paroxysmal supraventricular tachycardia Palpitations PSVT (paroxysmal supraventricular tachycardia) (HCC) Paroxysmal supraventricular tachycardia Palpitations PSVT (paroxysmal supraventricular tachycardia) (HCC) Paroxysmal supraventricular tachycardia documented in this encounter Admitting Diagnoses Diagnosis Palpitations PSVT (paroxysmal supraventricular tachycardia) (HCC) Paroxysmal supraventricular tachycardia documented in this encounter Administered Medications Inactive Administered Medications - up to 3 most recent administrations Medication Order MAR Action Action Date Dose Rate Site lidocaine-EPINEPHrine (XYLOCAINE with EPI) 2 %-1:100,000 injection As needed, Starting on Tue03/17/20 at 1144, Intra-Procedure (CV), Indications: Administration of Local AnesthesiaIndications:Administr ation of Local Anesthesia Given 03/17/2020 11:54 AM CDT 4 mL Left Chest Given 03/17/2020 11:44 AM CDT 4 mL L eft Chest documented in this encounter Active and Recently Administered Medications Times are shown in CDT. Scheduled Medication Order 03/15/2020 03/16/2020 03/17/2020 sodium chloride 0.9% flush 0.5-20 mL 0.5-20 mL, intra-catheter, Every 8 hours scheduled, First dose on Tue03/17/20 at 1400, Recovery (CV), Flush volume based on line type and size. , Indications: Flushing PRN Medication Order 03/15/2020 03/16/2020 03/17/2020 acetaminophen (TYLENOL) tablet 650 mg 650 mg, oral, Every 4 hours PRN, 1st line for pain, Starting on Tue03/17/20 at 1237, Recovery (CV), Indications: Pain lidocaine-EPINEPHrine (XYLOCAINE with EPI) 2 %-1:100,000 injection (CANCELED) As needed, Starting on Tue03/17/20 at 1144, Intra-Procedure (CV), Indications: Administration of Local Anesthesia 1144 (Given - Provid er: Luca Ayon MD)1154 (Given - Provider: Luca Ayon MD) ondansetron (ZOFRAN) injection 4 mg 4 mg, intravenous, Administer over 2 Minutes, Every 8 hours PRN, nausea, vomiting, Starting on Tue03/17/20 at 1237, Recovery (CV), Indications: Nausea and Vomiting sodium chloride 0.9% flush 0.5-20 mL 0.5-20 mL, intra-catheter, As needed, line care, Starting on Tue03/17/20 at 1237, Recovery (CV), Flush volume based on line type and size. Flush before and after each use. , Indications: Flushing documented in this encounter Orders Medications Ordered That Velasquez ht Not Have Been Administered Count Last Ordered Date First Ordered Date acetaminophen (TYLENOL) tablet 650 mg 1 10/2019 ondansetron (ZOFRAN) injection 4 mg 1 03/17 sodium chloride 0.9% flush 0.5-20 mL 2 08/10/2019 Diet Count Last Ordered Date First Orde red Date ADULT DISCHARGE DIET 1 03/17/2020 Nursing Count Last Ordered Date First Orde red Date DISCHARGE ACTIVITY 1 03/17/2020 DISCHARGE CALL PROVIDER 6 03/17/2020 DISCHARGE DRESSING 1 03/17/2020 DISCHARGE INSTRUCTIONS 1 03/17/2020 FOLLOW UP WITH ESTABLISHED PROVIDER 1 03/17 CORE MEASURES Count Last Ordered Date First Ord ered Date REASON FOR NO VTE PROPHYLAXIS AT ADMISSION 1 03/17/2020 documented in this encounter Care Teams Back Hand Relationship Specialty Start Date End Date Michael Sherman MD [address] [place] [address] PCP - General 01/28/17 Neil Bates MD [address] [address] Consulting Physician Cardiology 03/17/20 documented as of this encounter
--- OUTSIDE RECORDS SUMMARY | 2024-08-24 04:35 | XMS_ITS | Encounter Summary ---
Author Organization [facility] Address [address] [place] [address] Care Team Providers Care Forest Management Teacher Name Role Phone Michael Sherman MD Primary Care Prov ider Neil Bates MD Unavailable Reason for Visit * (Routine) - Closed Specialty Diagnoses / Procedures Referred By Chelsy herbert Referred To Contact Diagnoses Palpitations Procedures DEVICE CHECK - IN OFFICE Luca Ayon MD Phone: tel: fax: [facility] Referral ID Status Reason Start Date Expiration Date Visits Re quested Visits Authorized [id number] Closed 02/27/2020 09/07/2021 1 1 Encounter Details Date Type Department Care Team (Latest Contact Info) Description 03/26/2020 10:30 AM CDT Ancillary Procedure [facility] [address] [place] [address] PSVT (paroxysmal supraventricular tachycardia) (CMS/HCC) (Primary Dx); Palpitations Social History Tobacco Use Types Packs/Day Years Used Date Smoking Tobacco: Never Smokeless Tobacco: Never Alcohol Use Standard Drinks/Week Comments No 0 (1 standard drink = 0.6 oz pur e alcohol) Comments No Sex and Gender Information Value Date Recorded Sex Assigned at Not on file 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 PSVT . ??Patient had routine in office device interrogation on 03/26/2020. ?? Interrogation of the patients device demonstarates appropriate loop recorder function. 0 Symptom events 0 Auto device detected events of Bradycardia, Tachycardia, Pause or AT/AF Presenting rhythm: ??Normal sinus rhythm Battery: ??Good Plan: 1) normal Medtronic implantable loop recorder 2) Continue to monitor remotely. Lana Rivera R.N us Luca Ayon MD CV CARDIAC SERVICES PROCEDU RES Final Result documented in this encounter Visit Diagnoses Diagnosis PSVT (paroxysmal supraventricular tachycardia) (HCC)- Primary Paroxysmal supraventricular tachycardia Palpitations documented in this encounter Care Teams Forest Management Teacher Relationship Specialty Start Date End Date Michael Sherman MD [address] [place] [address] PCP - General 01/28/17 Neil Bates MD [address] [facility] [address] [place] [address] Consulting Physician Cardiology 03/17/20 documented as of this encounter
--- OUTSIDE RECORDS SUMMARY | 2024-08-24 04:35 | XMS_ITS | Encounter Summary ---
Author Organization [facility] Address [address] [facility] [address] [place] [address] Phone Care Team Providers Care Senior Product Analyst Name Role Phone Michael Sherman MD Primary Care Prov ider Neil Bates MD Unavailable Reason for Referral * (Routine) - Closed Specialty Diagnoses / Procedures Referred By Chelsy herbert Referred To Contact Diagnoses Moderate persistent asthma, unspecified whether complicated Procedures Pulmonary Function Test -[facility] Adult PFT Lab- CAM-8D; Spirometry Bi Ware MD [address] [place] [address] Phone: tel: fax: Referral ID Status Reason Start Date Expiration Date Visits Re quested Visits Authorized [id number] Closed 03/20/2020 04/19/2021 1 1 US ENUMERATOR Reason for Visit * (Routine) - Closed Specialty Diagnoses / Procedures Referred By Chelsy herbert Referred To Contact Diagnoses Moderate persistent asthma, unspecified whether complicated Procedures Pulmonary Function Test -[facility] PFT [facility]- CAM-8D; Spirometry Bi Ware MD [address] [place] [address] Phone: tel: fax: Referral ID Status Reason Start Date Expiration Date Visits Re quested Visits Authorized [id number] Closed 03/20/2020 04/19/2021 1 1 Encounter Details Date Type Department Care Team (Latest Contact Info) Description 08/21/2020 1:45 PM CENSUS ENUMERATOR - 08/21/2020 11:59 PM CENSUS ENUMERATOR Hospital Encounter [facility] Pulmonary [address] [facility] [address] [place] [address] Moderate persistent asthma, unspecified whether complicated Discharge [...] on file Legal Sex Female 11:00 AM CENSUS ENUMERATOR Gender Identity Not on file Sexual Orientation Not on file documented as of this encounter Medications at Time of Discharge aspirin (ASPIR-81) 81 mg tablet take 1 tablet by oral route every day 0 0 12/11/2015 albuterol HFA (PROVENTIL HFA,VENTOLIN HFA,PROAIR HFA) 90 mcg/actuation inhaler Inhale 2 puffs every 6 (six) hours as needed for wheezing 1 Inhaler 5 08/21/2020 02/19/2021 fluticasone propion-salmeter oL (ADVAIR DISKUS) 500-50 mcg/dose diskus inhaler Inhale 1 puff 2 (two) times a day 08/21/2020 02/19/2021 fluticasone propion-salmeter oL (Wixela Inhub) 500-50 mcg/dose diskus inhaler Inhale 1 puff 2 (two) times a day Rinse mouth with water after use. Do not swallow. 60 each 11 08/21/2020 02/19/2021 loratadine (CLARITIN) 10 mg tablet Take 10 mg by mouth daily 10/01/2019 02/19/2021 montelukast (SINGULAIR) 10 mg tablet Take 10 mg by mouth nightly 10/01/2019 02/19/2021 montelukast (SINGULAIR) 10 mg tablet Take 10 mg by mouth daily 10/01/2019 08/25/2021 documented as of this encounter Discharge Disposition Disposition Code Departure Means Destination Discharge to home or self care documented in this encounter Plan of Treatment Not on file documented as of this encounter Procedures Procedure Name Priority Date/Time Associated Diagnosis Comments PULMONARY FUNCTION TEST (PFT) Routine 08/21/2020 1:56 PM CENSUS ENUMERATOR Moderate persistent asthma, unspecified whether complicated documented in this encounter Results * Pulmonary Function Test - (08/21/2020 1:56 PM CENSUS ENUMERATOR) [facility] FVC PRE 3.00 L [facility] FVC %PRE PRED 78 % [facility] FEV1 PRE 1.91 L [facility] FEV1 %PRE PRED 64 % [facility] FEV1/FVC PRE 63.5 % [facility] Anatomical Region Laterality Modality PFT 08/21/2020 1:50 PM CENSUS ENUMERATOR Narrative 08/22/2020 4:09 PM CENSUS ENUMERATOR SEE PDF PFT performed at:->[facility] U Adult PFT Lab- CAM-8D Procedure:->Spirometry Bi Ware MD PFT ORDERABLES Krystyna l Result documented in this encounter Visit Diagnoses Diagnosis Moderate persistent asthma, unspecified whether complicated documented in this encounter Care Teams Senior Product Analyst Relationship Specialty Start Date End Date Michael Sherman MD [address] [place] [address] PCP - General 01/28/17 Neil Bates MD [address] [address] Consulting Physician Cardiology 03/17/20 documented as of this encounter
--- OUTSIDE RECORDS SUMMARY | 2024-08-24 04:35 | XMS_ITS | Encounter Summary ---
Author Organization [facility] Address [address] [facility] [address] [place] [address] Care Team Providers Care Occupational Therapy Teacher Name Role Phone Michael Sherman MD Primary Care Prov ider Neil Bates MD Unavailable Encounter Details Date Type Department Care Team (Late st Contact Info) Description 03/17/[address] 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 ??She has mildly elevated pressure in the lungs, which could be secondary to her underlying lung condition. ??Follow-up as previously scheduled. Left detailed message for patient. Encouraged her to call back with any further questions or concerns. documented in this encounter Plan of Treatment Not on file documented as of this encounter Visit Diagnoses Not on filedocumented in this encounter Care Teams Occupational Therapy Teacher Relationship Specialty Start Date End Date Michael Sherman MD [address] [place] [address] PCP - General 01/28/17 Neil Bates MD [address] [address] Consulting Physician Cardiology 03/17/20 documented as of this encounter
--- OUTSIDE RECORDS SUMMARY | 2024-08-24 04:35 | XMS_ITS | Encounter Summary ---
Author Organization [facility] Address [address] [address] Care Team Providers Care Financial Agent Name Role Phone Michael Sherman MD Primary Care Prov ider Reason for Visit * Reason Onset Date Comments review thyroid blood test results 12/26/2019 Encounter Details Date Type Department Care Team (Late st Contact Info) Description 12/26/2019 Telephone [facility] Cardiology [address] [address] Neil Bates MD [address] [place] [address] review thyroid blood test results Social History Tobacco Use Types Packs/Day Years Used Date Smoking Tobacco: Never Smokeless Tobacco: Never Alcohol Use Standard Drinks/Week Comments No 0 (1 standard drink = 0.6 oz pur e alcohol) Comments No Sex and Gender Information Value Date Recorded Sex Assigned at Not on file 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 I called the patient and left a voicemail message stating the above. documented in this encounter Plan of Treatment Not on file documented as of this encounter Visit Diagnoses Not on filedocumented in this encounter Care Teams Financial Agent Relationship Specialty Start Date End Date Michael Sherman MD [address] [place] [address] PCP - General 01/28/17 documented as of this encounter
--- OUTSIDE RECORDS SUMMARY | 2024-08-24 04:35 | XMS_ITS | Encounter Summary ---
Author Organization [facility] Address [address] [facility] [address] [place] [address] Care Team Providers Care Tailings Worker Name Role Phone Michael Sherman MD Primary Care Prov ider Neil Bates MD Unavailable Encounter Details Date Type Department Care Team (Late st Contact Info) Description 04/24/[address] 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 * Telephone Encounter - Beba Red NP - 04/24/2020 3:57 PM CDT She does not have to take the metoprolol scheduled. She can take as needed for palpitations. * Telephone Encounter - Joan Hobbs - 04/24/2020 2:04 PM CDT Pt called stating that she has been on Metoprolol 25 mg for a couple of months. Pt said that she can't take medication because it makes her fatigued and lightheaded. She said she can't function. She even tried cutting her dose in half, 1 tab per day, but she still felt the same way. She is asking if there is anything else she may be able to take. Please advise [phone] documented in this encounter Plan of Treatment Not on file documented as of this encounter Visit Diagnoses Not on filedocumented in this encounter Care Teams Tailings Worker Relationship Specialty Start Date End Date Michael Sherman MD [address] [place] [address] PCP - General 01/28/17 Neil Bates MD [address] [address] Consulting Physician Cardiology 03/17/20 documented as of this encounter
--- OUTSIDE RECORDS SUMMARY | 2024-08-24 04:35 | XMS_ITS | Encounter Summary ---
Author Organization [facility] Address [address] [address] Care Team Providers Care Grievance And Appeals Specialist Name Role Phone Michael Sherman MD Primary Care Prov ider Neil Bates MD Unavailable Reason for Referral * Cardiology (Routine) - Closed Specialty Diagnoses / Procedures Referred By Chelsy herbert Referred To Contact Diagnoses Palpitations Procedures DEVICE CHECK - REMOTE Neil Bates MD [address] [address] Phone: tel: fax: [facility] Referral ID Status Reason Start Date Expiration Date Visits Re quested Visits Authorized [id number] Closed 07/28/2020 08/27/2021 1 1 LE SHEAR OPERATOR * Cardiology (Routine) - Closed Specialty Diagnoses / Procedures Referred By Chelsy herbert Referred To Contact Diagnoses Palpitations Procedures DEVICE CHECK - REMOTE Neil Bates MD [address] [address] Phone: tel: fax: [facility] Referral ID Status Reason Start Date Expiration Date Visits Re quested Visits Authorized [id number] Closed 07/28/2020 08/27/2021 1 1 LE SHEAR OPERATOR Encounter Details Date Type Department Care Team (Late st Contact Info) Description 07/28/2020 Orders Only [facility] Cardiology [address] [facility] [address] [place] [address] [place] [address] [place], [place] [address]DG [facility] [address] [place] [address] Palpitations (Primary Dx) Social History Tobacco Use Types Packs/Day Years Used Date Smoking Tobacco: Never Smokeless Tobacco: Never Alcohol Use Standard Drinks/Week Comments No 0 (1 standard drink = 0.6 oz pur e alcohol) Comments No Sex and Gender Information Value Date Recorded Sex Assigned at Not on file Legal Sex Female 11:00 AM STAPLE SHEAR OPERATOR Gender Identity Not on file Sexual [...] See scanned report. [facility] remote f/u 01/05/2021. us Neil Bates MD CV CARDIAC SERVICES PROCEDURES F inal Result * DEVICE CHECK - REMOTE (10/15/2020 9:16 AM STAPLE SHEAR OPERATOR) Anatomical Region Laterality Modality Other Narrative 11/26/2020 9:16 AM CDT Medtronic LINQ ILR implanted for Palpitations/PAT on 03/17/2020. [facility] ??Jana (Card - follows) - [...] recorder documented in this encounter Care Teams Grievance And Appeals Specialist Relationship Specialty Start Date End Date Michael Sherman MD [address] [place] [address] PCP - General 01/28/17 Neil Bates MD [address] [address] Consulting Physician Cardiology 03/17/20 documented as of this encounter
--- OUTSIDE RECORDS SUMMARY | 2024-08-24 04:35 | XMS_ITS | Encounter Summary ---
Author Organization [facility] Address [address] [place] [address] Phone Care Team Providers Care Mason Tender Restoration Labor Name Role Phone Michael Sherman MD Primary Care Prov ider Neil Bates MD Unavailable Encounter Details Date Type Department Care Team (Late st Contact Info) Description 03/20/2020 Telephone [facility] Pulmonary [address] [facility] 8[address] [place] [address] [place] [address] Wes Cisneros RMA Social History Tobacco Use Types Packs/Day Years Used Date Smoking Tobacco: Never Smokeless Tobacco: Never Alcohol Use Standard Drinks/Week Comments No 0 (1 standard drink = 0.6 oz pur e alcohol) Comments No Sex and Gender Information Value Date Recorded Sex Assigned at Not on file 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 documented in this encounter Plan of Treatment Not on file documented as of this encounter Visit Diagnoses Not on filedocumented in this encounter Care Teams Mason Tender Restoration Labor Relationship Specialty Start Date End Date Michael Sheramn MD [address] [place] [address] PCP - General 01/28/17 Neil Bates MD [address] [address] Consulting Physician Cardiology 03/17/20 documented as of this encounter
--- OUTSIDE RECORDS SUMMARY | 2024-08-24 04:35 | XMS_ITS | Encounter Summary ---
Author Organization [facility] Address [address] [address] Care Team Providers Care Manager Molecular Name Role Phone Michael Sherman MD Primary Care Prov ider Neil Bates MD Unavailable Reason for Referral * (Routine) - Closed Specialty Diagnoses / Procedures Referred By Chelsy herbert Referred To Contact Diagnoses Palpitations PAT (paroxysmal atrial tachycardia) (HCC) Status post placement of implantable loop recorder Procedures DEVICE CHECK - REMOTE Neil Bates MD [address] [address] Phone: tel: fax: [facility] Referral ID Status Reason Start Date Expiration Date Visits Re quested Visits Authorized [id number] Closed 03/18/2020 04/17/2021 1 1 * (Routine) - Closed Specialty Diagnoses / Procedures Referred By Chelsy herbert Referred To Contact Diagnoses Palpitations PAT (paroxysmal atrial tachycardia) (HCC) Status post placement of implantable loop recorder Procedures DEVICE CHECK - REMOTE Neil Bates MD [address] [facility] [address] [place] [address] Phone: tel: fax: [facility] Referral ID Status Reason Start Date Expiration Date Visits Re quested Visits Authorized [id number] Closed 03/18/2020 04/17/2021 1 1 * (Routine) - Closed Specialty Diagnoses / Procedures [facility] Referred To Contact Diagnoses Palpitations PAT (paroxysmal atrial tachycardia) (HCC) Status post placement of implantable loop recorder Procedures DEVICE CHECK - REMOTE [facility] [address] [address] Phone: tel: fax: [facility] Referral ID Status Reason Start Date Expiration Date Visits Re quested Visits Authorized [id number] Closed 03/18/2020 04/17/2021 1 1 * (Routine) - Closed Specialty Diagnoses / Procedures Referred By Contac t Referred To Contact Diagnoses Palpitations PAT (paroxysmal atrial tachycardia) (HCC) Status post placement of implantable loop recorder Procedures DEVICE CHECK - REMOTE Neil Bates MD [address] [address] Phone: tel: fax: [facility] Referral ID Status Reason Start Date Expiration Date Visits Re quested Visits Authorized [id number] Closed 03/18/2020 04/17/2021 1 1 Encounter Details Date Type Department Care Team (Late st Contact Info) Description 03/18/2020 Orders Only [facility] Cardiology [address] [address] [facility] [address] [address] Palpitations (Primary Dx); PAT (paroxysmal atrial tachycardia) (CMS/HCC); Status post placement of implantable loop recorder Social History Tobacco Use Types Packs/Day Years Used Date Smoking Tobacco: Never Smokeless Tobacco: Never Alcohol Use Standard Drinks/Week Comments No 0 (1 standard drink = 0.6 oz pur e alcohol) Comments No Sex and Gender Information Value Date Recorded Sex Assigned at Not on file Legal Sex Female 11:00 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 ??Nany (Dudley CHAMPAGNE) ??Jana (Card - follows) - [facility]. ?? Routine remote. Normal device function. Battery function-Ok. Presenting rhythm-VS, regular. Medications; no cardiac meds listed. 3-Symptom episodes recorded, (2) iegm's SR. See scanned report. [facility] remote f/u 10/13/2020. Neil Bates MD CV CARDIAC SERVICES PROCEDURES F inal Result * DEVICE CHECK - REMOTE (07/28/2020 10:18 AM ELECTRO OPTICS ENGINEER) Anatomical Region Laterality Modality Other Narrative 08/29/2020 11:06 AM ELECTRO OPTICS ENGINEER Medtronic LINQ ILR implanted for Palpitations/PAT on 03/17/2020. ??Nany (Dudley CHAMPAGNE) ??Jana (Card - follows) - [facility]. ?? Routine remote. Normal device function. Battery function-Ok. Presenting rhythm-VS, regular. Medications; no cardiac meds listed. 9-Symptom episodes recorded, iegm's SR, short burst of ST-SVT, PAC's. See scanned report. [facility] remote f/u 09/01/2020. Neil Bates MD CV CARDIAC SERVICES PROCEDURES F inal Result * DEVICE CHECK - REMOTE (06/09/2020 3:17 PM CDT) Anatomical Region Laterality Modality Other Narrative 07/04/2020 10:05 AM ELECTRO OPTICS ENGINEER Medtronic LINQ ILR implanted for Palpitations/PAT on 03/17/2020. ??Nany (Dudley CHAMPAGNE) ??Jana (Card - follows) - [facility]. ?? Routine remote. Normal device function. Battery function-Ok. Presenting rhythm-VS, regular. Medications; no cardiac meds listed. 5-Symptom episodes recorded, iegm's SR with short burst of ST, PAC's, and SR. See scanned report. [facility] remote f/u 07/21/2020. Result [facility] us Neil Bates MD CV CARDIAC SERVICES PROCEDURES F inal Result * DEVICE CHECK - REMOTE (04/28/2020 1:46 PM CDT) Anatomical Region Laterality Modality Other Narrative 06/06/2020 8:35 AM CDT Medtronic LINQ ILR implanted for Palpitations/PAT on 03/17/2020. ??Nany (Dudley CHAMPAGNE) ??Jana (Card - follows) - [facility]. ?? Routine remote. Normal device function. Battery function-Ok. Presenting rhythm-VS, regular. Medications; no cardiac meds listed. No episodes recorded. See scanned report. [facility] remote f/u 06/09/2020. Result [facility] Neil Bates MD CV CARDIAC SERVICES PROCEDURES [...] supraventricular tachycardia) (HCC) Paroxysmal supraventricular tachycardia Palpitations PAT (paroxysmal atrial tachycardia) (HCC) Paroxysmal supraventricular tachycardia Status post placement of implantable loop recorder documented in this encounter Care Teams Manager Molecular Relationship Specialty Start Date End Date Michael Sherman MD [address] [place] [address] PCP - General 01/28/17 Neil Bates MD [address] [address] Consulting Physician Cardiology 03/17/20 documented as of this encounter
--- OUTSIDE RECORDS SUMMARY | 2024-08-24 04:35 | XMS_ITS | Encounter Summary ---
Author Organization [facility] Address [address] [address] Care Team Providers Care Scrap Crane Operator Name Role Phone Michael Sherman MD Primary Care Prov ider Neil Bates MD Unavailable Reason for Visit * (Routine) - Closed Specialty Diagnoses / Procedures Referred By Contac t Referred To Contact Diagnoses Palpitations PAT (paroxysmal atrial tachycardia) (HCC) Status post placement of implantable loop recorder Procedures DEVICE CHECK - REMOTE Neil Bates MD [address] [place] [address] Phone: tel: fax: [facility] Referral ID Status Reason Start Date Expiration Date Visits Re quested Visits Authorized [id number] Closed 03/18/2020 04/17/2021 1 1 Encounter Details Date Type Department Care Team (Latest Contact Info) Description 2020 7:00 AM ETL MANAGER Ancillary Procedure [facility] Medical [facility] Cardiology [address] [place] [phone] Palpitations; PAT (paroxysmal atrial tachycardia) (CMS/HCC); Status post placement of implantable loop recorder; PSVT (paroxysmal supraventricular tachycardia) (CMS/HCC) Social History Tobacco Use Types Packs/Day Years Used Date Smoking Tobacco: Never Smokeless Tobacco: Never Alcohol Use Standard Drinks/Week Comments No 0 (1 standard drink = 0.6 oz pur e alcohol) Comments No Sex and Gender Information Value Date Recorded Sex Assigned at Not on file Legal Sex Female 11:00 AM ETL MANAGER Gender Identity Not on file Sexual Orientation Not on file documented as of this encounter Progress Notes * Elise Knowles RN - 2020 7:00 AM CST Medtronic LINQ ILR implanted for Palpitations/PAT on 03/17/2020. Nany (Dudley CHAMPAGNE) Jana (Card - follows) - [facility]. Routine remote. Normal device function. Battery function-Ok. Presenting rhythm-VS, regular. Medications; no cardiac meds listed. 9-Symptom episodes recorded, iegm's SR, short burst of ST-SVT, PAC's. See scanned report. [facility] remote f/u 09/01/2020. MANAGER documented in this encounter Plan of Treatment Not on file documented as of this encounter Procedures Procedure Name Priority Date/Time Associated Diagnosis Comments DEVICE CHECK - REMOTE Routine 07/28/2020 10:18 AM ETL MANAGER Palpitations PAT (paroxysmal atrial tachycardia) ([facility]) Status post placement of implantable loop recorder documented in this encounter Results * DEVICE CHECK - REMOTE (07/28/2020 10:18 AM ETL MANAGER) Anatomical Region Laterality Modality Other Narrative 08/29/2020 11:06 AM ETL MANAGER Medtronic LINQ ILR implanted for Palpitations/PAT on 03/17/2020. ??Nany (Dudley CHAMPAGNE) ??Jana (Card - follows) - [facility]. ?? Routine remote. Normal device function. Battery function-Ok. Presenting rhythm-VS, regular. Medications; no cardiac meds listed. 9-Symptom episodes recorded, iegm's SR, short burst of ST-SVT, PAC's. See scanned report. [facility] remote f/u 09/01/2020. us Neil Bates MD CV CARDIAC SERVICES PROCEDURES F inal Result documented in this encounter Visit Diagnoses Diagnosis Palpitations PAT (paroxysmal atrial tachycardia) (HCC) Paroxysmal supraventricular tachycardia Status post placement of implantable loop recorder PSVT (paroxysmal supraventricular tachycardia) (HCC) Paroxysmal supraventricular tachycardia documented in this encounter Care Teams Scrap Crane Operator Relationship Specialty Start Date End Date Michael Sherman MD [address] [place] [address] PCP - General 01/28/17 Neil Bates MD [address] [address] Consulting Physician Cardiology 03/17/20 documented as of this encounter
--- OUTSIDE RECORDS SUMMARY | 2024-08-24 04:35 | XMS_ITS | Encounter Summary ---
Author Organization [facility] Address [address] [place] [address] Care Team Providers Care Highway Administrative Engineer Name Role Phone Michael Sherman MD Primary Care Prov ider Reason for Referral * (Routine) - Closed Specialty Diagnoses / Procedures Referred By Chelsy herbert Referred To Contact Diagnoses Palpitations Procedures DEVICE CHECK - IN OFFICE Luca Ayon MD Phone: tel: fax: [facility] Referral ID Status Reason Start Date Expiration Date Visits Re quested Visits Authorized [id number] Closed 02/27/2020 09/07/2021 1 1 Reason for Visit * Reason Comments Palpitations Encounter Details Date Type Department Care Team (Late st Contact Info) Description 02/27/2020 11:15 AM CDT Office Visit [facility] [address] [place] [address] Luca Ayon MD [address] [place] [address] Palpitations (Primary Dx) Social History Tobacco Use Types Packs/Day Years Used Date Smoking Tobacco: Never Smokeless Tobacco: Never Alcohol Use Standard Drinks/Week Comments No 0 (1 standard drink = 0.6 oz pur e alcohol) Comments No Sex and Gender Information Value Date Recorded Sex Assigned at Not on file Legal Sex Female 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 Gender Identity Not on file Sexual Orientation Not on file documented as of this encounter Last Filed Vital Signs Vital Sign Reading Time Taken Comments Blood Pressure 108/60 02/27/2020 11:16 AM CDT Pulse 73 02/27/2020 11:16 AM CDT Temperature - - Respiratory Rate - - Oxygen Saturation - - Inhaled Oxygen Concentration - - Weight 60.4 kg (133 lb 3.2 oz) 02/27/2020 11:16 AM CDT Height 177.8 cm (5' 10 ) 02/27/2020 11:16 AM CDT Body Mass Index 19.11 02/27/2020 11:16 AM CDT documented in this encounter Ordered Prescriptions Prescription Sig Dispense Quantity Refills Last Filled Start Date End Date metoprolol tartrate (LOPRESSOR) 25 mg immediate release tablet Take 1 tablet (25 mg total) by mouth 2 (two) times a day 60 tablet 11 02/27/2020 05/21/2020 documented in this encounter Progress Notes * Luca Ayon MD - 02/27/2020 11:15 AM [...] arrhythmias Patient had a loop recorder placed 2015 no arrhythmias had been found Echo 2012 [...] ??? Asthma Asthma ??? Asthma Asthma; Comments: [facility] 10/10/2014 - ??? Brain concussion Multiple .....Last Jun 2018 ??? Cancer of lung (CMS/HCC) Cancer, lung ??? Cerebrovascular accident (CVA) (CMS/HCC) Stroke ??? Chronic bronchitis (CMS/HCC) 2009 ??? Clotting disorder ([facility]/HCC) 1961 ??? Depression Depression ??? Emphysema of lung (CMS/HCC) 2015 ??? HX OTHER MEDICAL NSCLC 1a- adenocarcinoma ??? HX OTHER MEDICAL palpitations ??? HX OTHER MEDICAL 2012 Small lacunar infarct- basal ganglia ??? HX OTHER MEDICAL hx gestational diabetes ??? HX OTHER MEDICAL chronic bronchitis ??? HX OTHER MEDICAL ENCEPHALITIS ??? HX OTHER MEDICAL seizure disorder; Comments: [facility] 10/10/2014 - ??? HX OTHER MEDICAL encephalitis; Comments: [facility] 10/10/2014 - ??? HX OTHER MEDICAL 2010 lung cancer surgery; Comments: [facility] 10/10/2014 - ??? HX OTHER MEDICAL scoliosis; Comments: [facility] 10/10/2014 - ??? HX OTHER MEDICAL carpal tunnel; Comments: [facility] 10/10/2014 - ??? HX OTHER MEDICAL headaches; Comments: [facility] 10/10/2014 - ??? HX OTHER MEDICAL neuropathy; Comments: [facility] 10/10/2014 - ??? HX OTHER [...] explant /implant . Risks and benefits discussed Luac Ayon MD 02/27/2020 documented in this encounter Miscellaneous Notes * Addendum Note - Sarina Lorenzana - 02/27/2020 11:15 AM CDTAddended by: SARINA LORENZANA on: 02/27/2020 02:07 PM Modules accepted: Orders documented in this encounter Plan of Treatment Not on file documented as of this encounter Procedures Procedure Name Priority Date/Time Associated Diagnosis Comments ECG 12-LEAD Routine 02/27/2020 Palpitations documented in this encounter Results * [...] CV CARDIAC SERVICES PROCEDU RES Final Result * ECG 12 lead (02/27/2020) us Luca Ayon MD ECG ORDERABLES Final Resul t documented in this encounter Visit Diagnoses Diagnosis Palpitations- Primary PSVT (paroxysmal supraventricular tachycardia) (HCC)- Primary Paroxysmal supraventricular tachycardia Palpitations documented in this encounter Discontinued Medications Medication Sig Discontinue Reason Start Date End Da te dilTIAZem CD/XR/XT (CARDIZEM CD,DILACOR XR) 120 mg 24 hr capsule Take 1 capsule (120 mg total) by mouth daily Discontinued by another clinician 01/23/2020 02/27/2020 documented as of this encounter Care Teams Highway Administrative Engineer Relationship Specialty Start Date End Date Michael Sherman MD [address] [place] [address] PCP - General 01/28/17 documented as of this encounter
--- OUTSIDE RECORDS SUMMARY | 2024-08-24 04:35 | XMS_ITS | Encounter Summary ---
Author Organization [facility] Address [address] [place] [address] Care Team Providers Care Auto Dealer Name Role Phone Michael Sherman MD Primary Care Prov ider Neil Bates MD Unavailable Reason for Visit * Reason Comments Follow-up Palps Encounter Details Date Type Department Care Team (Late st Contact Info) Description 05/21/2020 1:00 PM CDT Office Visit [facility] Cardiology [address] [place] [address] Neil Bates MD [address] [address] Palpitations (Primary Dx); Status post placement of implantable loop recorder Social History Tobacco Use Types Packs/Day Years Used Date Smoking Tobacco: Never Smokeless Tobacco: Never Alcohol Use Standard Drinks/Week Comments No 0 (1 standard drink = 0.6 oz pur e alcohol) Comments No Sex and Gender Information Value Date Recorded Sex Assigned at Not on file Legal Sex Female 11:00 AM NET COORDINATOR Gender Identity Not on file Sexual Orientation Not on file documented as of this encounter Last Filed Vital Signs Vital Sign Reading Time Taken Comments Blood Pressure 110/70 05/21/2020 1:08 PM CDT Pulse 57 05/21/2020 1:08 PM CDT Temperature - - Respiratory Rate 15 05/21/2020 1:08 PM CDT Oxygen Saturation - - Inhaled Oxygen Concentration - - Weight 63 kg (139 lb) 05/21/2020 1:08 PM CDT Height 177.8 cm (5' 10 ) 05/21/2020 1:08 PM CDT Body Mass Index 19.94 05/21/2020 1:08 PM CDT documented in this encounter Progress Notes * Neil Bates MD - 05/21/2020 1:00 PM CDT [facility] FOLLOW UP 05/21/2020 Chief Complaint Patient presents with ??? Follow-up Palps 59 y.o. female with past medical history [...] up with endocrinology, neurology and neurosurgery at [facility]. In light of recurrent episodes of dizziness, patient had implantable general utility machine operator on 10/07/2015.No significant arrhythmias have been found at. On previous follow-up , she reported She lives with her 2 teenage sons. Patient states that she gets episodes of palpitations and dizziness when it is surface plate inspector the house. Patient states that she does not have an AC in the house. Denies chest pain, shortness of breath, PND, orthopnea or lower extent he swelling. 12/05/2019 tele visit- This was a telemedicine visit with Yane Fagan which took place via video conference. During the visit, I was located at my home and the tele visit was coordinated by my medical lab technologist from our cardiology clinic at [facility] Card[facility], [address], [address], [place], [address]. . The patient was located at her home. The session started at 1110 and ended at 1129. Total time including review of the chart and documentation was 27 minutes. The patient has been informed that the visit may not be secure and acknowledged the information. I have explained the option of participating in a telephone or video visit during the COVID-19 public [facility] emergency to the patient. After being [...] that time, states that she went to [facility]. She has been experiencing frequent episodes of [...] excessive alcohol. Patient has history of implantable general utility machine operator without recent follow-up. 01/30/2020-on the follow-up visit today, patient reports recurrent episodes of palpitations which happen almost on a daily basis. Her palpitations last for about few seconds to minutes and associatedwith occasional dizziness without syncope. Patient does have longstanding history of palpitations. She has history of implantable general utility machine operator with depleted battery. Her recent 2 week event monitor showed sinus rhythm with episodes of atrial tachycardia. Previous monitor showed episode of SVT. Patient recently had PFTs done which showed moderate obstructive ventilatory defect. 05/21/2020-patient is here for the follow-up visit. She has been evaluated by physiology. Her previous implantable general utility machine operator was explanted and anyone was reimplanted. She continues to have frequent palpitations, last for about 1 minutes each time, several times a week. She was apparently prescribed metoprolol, which patient was unable to tolerate due to symptoms of dizziness. She denies angina, although she has history of occasional chest discomfort which is nonexertional. She has dyspneaon moderate to severe exertion. REVIEW OF SYSTEMS General ROS: negative for [...] every 4 - 6 hours as needed (Patient taking differently: Inhale 90 mcg every 6 (six) hours as needed ) 0 Inhaler 0 ??? aspirin (ASPIR-81) 81 mg tablet take 1 tablet by oral route every day 0 0 ??? fluticasone propion-salmeteroL (ADVAIR DISKUS) 250-50 mcg/dose diskus inhaler Inhale 1 puff 2 (two) times a day Rinse mouth with water after use. Do not swallow. 60 each 11 ??? loratadine (CLARITIN) 10 mg tablet Take 10 mg by mouth daily ??? montelukast (SINGULAIR) 10 mg tablet Take 10 mg by mouth nightly No current facility-administered medications for this visit. [...] MR. Mild prolapse of MV. Dilated IVC. ([facility])) - 04/12/2012 ELECTROPHYSIOLOGY: Holter (No correlation [...] Stress Echocardiogram, NEGATIVE for myocardial ischemia. 08/18/2018 [facility] PFT- moderate obstructive ventilatory defect. There is [...] moderate tricuspid regurgitation. Normal sinus rhythm. 02/21/2020 PHYSICAL EXAM Vitals BP 110/70 (BP Location: Left arm, Patient Position: Sitting) Pulse 57 Resp 15 Ht 177.8 cm (5' 10 ) Wt 63 kg (139 lb) BMI 19.94 kg/m?? Physical Examination: General appearance - alert, [...] all orders for this visit: Palpitations (Primary) Status post placement of implantable loop recorder PLAN/RECOMMENDATIONS 59 y.o. female with past medical [...] electrophysiology, and continue to monitor her implantable general utility machine operator for any significant arrhythmias. - previous noninvasive ischemic workup was negative for ischemia. Recent echocardiogram showed normal LV systolic function, mild pulmonary hypertension. Pulmonary hypertension likely secondary to underlying lung condition. Will continue to do periodic, surveillance surveillance echocardiograms. - Follow-up in approximately to 12 months or sooner if needed. Neil Bates MD documented in this encounter Plan of Treatment Not on file documented as of this encounter Visit Diagnoses Diagnosis Palpitations- Primary Status post placement of implantable loop recorder documented in this encounter Discontinued Medications Medication Sig Discontinue Reason Start Date End Da te metoprolol tartrate (LOPRESSOR) 25 mg immediate release tablet Take 1 tablet (25 mg total) by mouth 2 (two) times a day Therapy completed 02/27/2020 05/21/2020 documented as of this encounter Care Teams Auto Dealer Relationship Specialty Start Date End Date Michael Sherman MD [address] [place] [address] PCP - General 01/28/17 Neil Bates MD [address] [address] Consulting Physician Cardiology 03/17/20 documented as of this encounter
--- OUTSIDE RECORDS SUMMARY | 2024-08-24 04:35 | XMS_ITS | Encounter Summary ---
Author Organization [facility] Address [address] [address] Care Team Providers Care Store Protection Specialist Name Role Phone Michael Sherman MD Primary Care Prov ider Neil Bates MD Unavailable Reason for Visit * (Routine) - Closed Specialty Diagnoses / Procedures Referred By Contac t Referred To Contact Diagnoses Palpitations PAT (paroxysmal atrial tachycardia) (HCC) Status post placement of implantable loop recorder Procedures DEVICE CHECK - REMOTE Neil Bates MD [address] [place] [address] Phone: tel: fax: [facility] Referral ID Status Reason Start Date Expiration Date Visits Re quested Visits Authorized [id number] Closed 03/18/2020 04/17/2021 1 1 Encounter Details Date Type Department Care Team (Latest Contact Info) Description 04/28/2020 9:00 AM CDT Ancillary Procedure [facility] Cardiology [address] [place] [id number] Palpitations; PAT (paroxysmal atrial tachycardia) (CMS/HCC); [...] on file Legal Sex Female 11:00 AM DOCUMENTATION ANALYST Gender Identity Not on file Sexual Orientation Not on file documented as of this encounter Progress Notes * Elise Knowles RN - 04/28/2020 9:00 AM CDT Medtronic LINQ ILR implanted for Palpitations/PAT on 03/17/2020. Nany Slater MD) Jana (Card - follows) - [facility]. Routine remote. Normal device function. Battery function-Ok. Presenting rhythm-VS, regular. Medications; no cardiac meds listed. No episodes recorded. See scanned report. [facility] remote f/u 06/09/2020. documented in this encounter Plan of Treatment Not on file documented as of this encounter Procedures Procedure Name Priority Date/Time Associated Diagnosis Comments DEVICE CHECK - REMOTE Routine 04/28/2020 1:46 PM CDT Palpitations PAT (paroxysmal atrial tachycardia) (CMS/HCC) Status post placement of implantable loop recorder documented in this encounter Results * DEVICE CHECK - REMOTE (04/28/2020 1:46 PM CDT) Anatomical Region Laterality Modality Other Narrative 06/06/2020 8:35 AM CDT Medtronic LINQ ILR implanted for Palpitations/PAT on 03/17/2020. ??Nany ([place]) ??Jana (Card - follows) - [facility]. ?? Routine remote. Normal device function. Battery function-Ok. Presenting rhythm-VS, regular. Medications; no cardiac meds listed. No episodes recorded. See scanned report. [facility] remote f/u 06/09/2020. Neil Bates MD CV CARDIAC SERVICES PROCEDURES F inal Result documented in this encounter Visit Diagnoses Diagnosis Palpitations PAT (paroxysmal atrial tachycardia) (HCC) Paroxysmal supraventricular tachycardia Status post placement of implantable loop recorder documented in this encounter Care Teams Store Protection Specialist Relationship Specialty Start Date End Date Michael Sherman MD [address] [place] [address] PCP - General 01/28/17 Neil Bates MD [address] [address] Consulting Physician Cardiology 03/17/20 documented as of this encounter
--- OUTSIDE RECORDS SUMMARY | 2024-08-24 04:35 | XMS_ITS | Encounter Summary ---
Author Organization [facility] Address [address] [place] [address] Care Team Providers Care Dyehouse Worker Name Role Phone Michael Sherman MD Primary Care Prov ider Encounter Details Date Type Department Care Team (Late st Contact Info) Description 12/24/2019 Orders Only [facility] Cardiology [address] [place] [address] Neil Bates MD [facility] [place] [id number] Social History Tobacco Use Types Packs/Day Years Used Date Smoking Tobacco: Never Smokeless Tobacco: Never Alcohol Use Standard Drinks/Week Comments No 0 (1 standard drink = 0.6 oz pur e alcohol) Comments No Sex and Gender Information Value Date Recorded Sex Assigned at Not on file Legal Sex Female 11:00 AM SLD TEACHER Gender Identity Not on file Sexual Orientation Not on file documented as of this encounter Plan of Treatment Not on file documented as of this encounter Visit Diagnoses Not on filedocumented in this encounter Care Teams Dyehouse Worker Relationship Specialty Start Date End Date Michael Sherman MD [address] [place] [address] PCP - General 01/28/17 documented as of this encounter
--- OUTSIDE RECORDS SUMMARY | 2024-08-24 04:35 | XMS_ITS | Encounter Summary ---
Author Organization [facility] Address [address] [facility] [address] [place] [address] Care Team Providers Care Wood Room Supervisor Name Role Phone Michael Sherman MD Primary Care Prov ider Encounter Details Date Type Department Care Team (Late st Contact Info) Description 01/23/2020 Telephone [facility] Cardiology [address] [address] Neil Bates MD [address] [place] [address] Social History Tobacco Use Types Packs/Day Years Used Date Smoking Tobacco: Never Smokeless Tobacco: Never Alcohol Use Standard Drinks/Week Comments No 0 (1 standard drink = 0.6 oz pur e alcohol) Comments No Sex and Gender Information Value Date Recorded Sex Assigned at Not on file Legal Sex Female 11:00 AM INTERPRETIVE NATURALIST Gender Identity Not on file Sexual Orientation Not on file documented as of this encounter Ordered Prescriptions Prescription Sig Dispense Quantity Refills Last Filled Start Date End Date dilTIAZem CD/XR/XT (CARDIZEM CD,DILACOR XR) 120 mg 24 hr capsule Take 1 capsule (120 mg total) by mouth daily 30 capsule 01/23/2020 0 documented in this encounter Miscellaneous Notes * Telephone Encounter - Enedina Gonzalez RN - 01/23/2020 10:44 AM CDT Spoke with patient and reviewed results per DK. Patient verbalized understanding and would like to try Diltiazem as she has had ongoing symptoms for several years . 30 day script sent to [facility] pharmacy in [place]. After that patient would like refills sent to mail service. ----- Message from Neil Bates MD sent at 01/23/2020 9:17 AM CDT ----- Please call patient let her know that her heart rhythm is mostly normal, however, she does have brief episodes of rapid heart rate arising from the upper chambers of the heart. If she has ongoing symptoms of palpitations, then please start her on diltiazem CD 1 20 mg p.o. daily. I will see her on the follow-up visit. If she continues to have significant symptoms of palpitations, then she will be referred to electrophysiology. * Telephone Encounter - Anay Calderon - 01/23/2020 10:31 AM CDT Pt called to discuss her results on her event monitor. documented in this encounter Plan of Treatment Not on file documented as of this encounter Visit Diagnoses Not on filedocumented in this encounter Care Teams Wood Room Supervisor Relationship Specialty Start Date End Date Michael Sherman MD [address] [place] [address] PCP - General 01/28/17 documented as of this encounter
--- OUTSIDE RECORDS SUMMARY | 2024-08-24 04:35 | XMS_ITS | Encounter Summary ---
Author Organization [facility] Address [address] [place] [address] Care Team Providers Care Grades 1 Through 6 Teacher Name Role Phone Michael Sherman MD Primary Care Prov ider Reason for Referral * Cardiology (Routine) - Closed Specialty Diagnoses / Procedures Referred By Contac t Referred To Contact Diagnoses Palpitations PAT (paroxysmal atrial tachycardia) (HCC) Dizziness Procedures Transthoracic Echo Complete W Doppler/CF Chandler Mancilla MD [address] [facility] [address] [place] [address] Phone: tel: fax: [facility] Referral ID Status Reason Start Date Expiration Date Visits Re quested Visits Authorized [id number] Closed 03/07/2020 09/03/2020 1 1 Reason for Visit * Reason Comments Follow-up 2 mo follow up on pa lps, dizziness Encounter Details Date Type Department Care Team (Latest Contact Info) Description 01/30/2020 2:30 PM CDT Office Visit [facility] Cardiology [address] [place] [address] Chandler Mancilla MD [address] [place] [address] Palpitations (Primary Dx); PAT (paroxysmal atrial tachycardia) (CMS/HCC); PSVT (paroxysmal supraventricular tachycardia) (CMS/HCC); Dizziness; Status post placement of implantable loop recorder; Non-small cell carcinoma of lung (CMS/HCC); Chronic obstructive pulmonary disease, unspecified COPD type (CMS/HCC) Social History Tobacco Use Types Packs/Day Years Used Date Smoking Tobacco: Never Smokeless Tobacco: Never Alcohol Use Standard Drinks/Week Comments No 0 (1 standard drink = 0.6 oz pur e alcohol) Comments No Sex and Gender Information Value Date Recorded Sex Assigned at Not on file 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 Gender Identity Not on file Sexual Orientation Not on file documented as of this encounter Last Filed Vital Signs Vital Sign Reading Time Taken Comments Blood Pressure 116/78 01/30/2020 2:46 PM CDT Pulse 62 01/30/2020 2:46 PM CDT Temperature - - Respiratory Rate - - Oxygen Saturation 97% 01/30/2020 2:46 PM CDT Inhaled Oxygen Concentration - - Weight 59.9 kg (132 lb) 01/30/2020 2:46 PM CDT Height 177.8 cm (5' 10 ) 01/30/2020 2:46 PM CDT Body Mass Index 18.94 01/30/2020 2:46 PM CDT documented in this encounter Progress Notes * Chandler Mancilla MD - 01/30/2020 2:30 PM CDT [facility] FOLLOW UP 01/30/2020 Chief Complaint Patient presents with ??? Follow-up 2 mo follow up on palps, dizziness 59 y.o. female with past medical history [...] up with endocrinology, neurology and neurosurgery at [facility]. In light of recurrent episodes of dizziness, patient had implantable monitoring tech on 10/07/2015.No significant arrhythmias have been found at. On previous follow-up , she reported She lives with her 2 teenage sons. 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 Patient states that she does not have an AC in the house. Denies chest pain, shortness of breath, PND, orthopnea or lower extent he swelling. 12/05/2019 tele visit- This was a telemedicine visit with Yane Fagan which took place via video conference. During the visit, I was located at my home and the tele visit was coordinated by my lpn medical assistant from our cardiology clinic at [facility] Cardiology/[facility] Care group, [address], [facility] [address], [place], [address]. . The patient was located at her [...] that time, states that she went to [facility]. She has been experiencing frequent [...] excessive alcohol. Patient has history of implantable monitoring tech without recent follow-up. 01/30/2020-on the follow-up visit today, patient reports recurrent episodes of palpitations which happen almost on a daily basis. Her palpitations last for about few seconds to minutes and associatedwith occasional dizziness without syncope. Patient does have longstanding history of palpitations. She has history of implantable monitoring tech with depleted battery. Her recent 2 week event monitor showed sinus rhythm with episodes of atrial tachycardia. Previous monitor showed episode of SVT. Patient recently had PFTs done which showed moderate obstructive ventilatory defect REVIEW OF SYSTEMS General ROS: negative for [...] ??? montelukast (SINGULAIR) 10 mg tablet ??? dilTIAZem CD/XR/XT (CARDIZEM CD,DILACOR XR) 120 mg 24 hr capsule Take 1 capsule (120 mg total) by mouth daily (Patient not taking: Reported on 01/30/2020) 30 capsule 0 No current facility-administered medications for this visit. [...] MR. Mild prolapse of MV. Dilated IVC. ([facility])) - 04/12/2012 ELECTROPHYSIOLOGY: Holter (No correlation with [...] Stress Echocardiogram, NEGATIVE for myocardial ischemia. 08/18/2018 [facility] PFT- moderate obstructive ventilatory defect. There is [...] AV block. 12/14 to 12/28/2019 Dr. Killian PHYSICAL EXAM Vitals BP 116/78 (BP Location: Right arm, Patient Position: Sitting) Pulse 62 Ht 177.8 cm (5' 10 ) Wt 59.9 kg (132 lb) SpO2 97% BMI 18.94 kg/m?? Physical Examination: General appearance - alert, well appearing, and in no distress, oriented to person, place, and time and acyanotic, in no respiratory distress Mental status - anxious Eyes - extraocular eye movements intact, sclera anicteric, no pallor Ears - external earsappear normal, hearing grossly normal bilaterally Nose - normal and patent, no erythema or discharge Mouth - mucous membranes moist, pharynx appears normal, dental hygiene good and tongue normal Neck - supple, no significant neck masses, carotids upstroke normal bilaterally, no bruits, no JVD Chest - clear to auscultation, no wheezes, rales or rhonchi, symmetric air entry, no tachypnea, retractions or cyanosis Heart - normal rate, regular rhythm, normal S1, S2, no murmurs, rubs, clicks or gallops, no JVD Abdomen - soft, nontender, nondistended, no masses or organomegaly bowel sounds normal Neurological - alert, oriented, normal speech, no focal findings or movement disorder noted Musculoskeletal - no joint tenderness, deformity or swelling, no muscular tenderness noted Extremities - peripheral pulses normal, no pedal edema, no clubbing or cyanosis Skin - normal coloration and turgor, no rashes, no suspicious skin lesions noted ASSESSMENT Clarisse Diagnoses and all orders for this visit: Palpitations (Primary) - Transthoracic Echo Complete W Doppler/CF; Future PAT (paroxysmal atrial tachycardia) (CMS/HCC) - Transthoracic Echo Complete W Doppler/CF; Future PSVT (paroxysmal supraventricular tachycardia) (CMS/HCC) Dizziness - Transthoracic Echo Complete W Doppler/CF; Future Status post placement of implantable loop recorder Non-small cell carcinoma of lung (CMS/HCC) Chronic obstructive pulmonary disease, unspecified COPD type (CMS/HCC) PLAN/RECOMMENDATIONS 59 y.o. female with past medical history of atypical chest pain, recurrent dizziness, palpitations,headache; history of adenocarcinoma lung status post resection. - patient has recurrent episodes of palpitations. Recent event monitor showed sinus rhythm with episodes of atrial tachycardia. Previous monitor showed episode of SVT. Recent PFT showed moderate obstructive ventilatory defect. Atrial tachycardia can be secondary to underlying lung condition. Due to patient's recurrent symptoms of palpitations, will refer her to electrophysiology for further evaluation management. Patient was previously prescribed diltiazem, which she has not been taking. Patient was advised to continue to hold it for now until she sees the electrophysiology. - previous noninvasive ischemic workup was negative for ischemia. Previous echocardiogram reported moderate left atrial enlargement. Will repeat the echocardiogram with Doppler to assess LV/RV function, PA pressure, chamber size and rule out any valvular heart disease. - Follow-up in approximately to 4-5 months or sooner if needed. Chandler Mancilla MD documented in this encounter Miscellaneous Notes * Addendum Note - Deepti Huizar MA - 01/30/2020 2:30 PM CDTAddended by: DEEPTI HUIZAR on: 01/31/2020 09:08 AM Modules accepted: Orders documented in this encounter Plan of Treatment Not on file documented as of this encounter Procedures Procedure Name Priority Date/Time Associated Diagnosis Comments POCT LIPID PANEL Routine 01/30/2020 9:08 AM CDT Status post placement of implantable loop recorder documented in this encounter Results * TRANSTHORACIC ECHO (TTE) COMPLETE W DOPPLER/CF WO CONTRAST (03/12/2020 1:53 PM CDT) Anatomical Region Laterality Modality Ultrasound 03/12/2020 11:5 7 AM CDT Narrative 03/12/2020 4:28 PM CDT [facility] Cardiology [address], [place] [address] [address], [place] [address] P:[phone] P:[phone] Echocardiographic Report Patient Name: YANE FAGAN K : 1960 Study Date: 03/12/2020 11:57:07 AM Gender: F Tech: Location: [place] Ref.Provider: MARIS Height(Cm): 178 BSA: 1.76 Weight(Kg): [...] Interpretation Site: Exam was interpreted at [facility]. Left Ventricle: Normal left ventricular size. Normal [...] rhythm. Electronically Signed By: Chandler Mancilla MD, [facility] 2020-03-12 16:28:29 CDT Procedure Note Chandler Mancilla MD - 03/12/2020 [facility] Cardiology [address], [place] [address] [address], [place] [address] P:[phone] P:[phone] Echocardiographic Report Patient Name: YANE FAGAN K : 1960 Study Date: 03/12/2020 11:57:07 AM Gender: F Tech: Location: [place] Ref.Provider: MARIS Height(Cm): 178 BSA: 1.76 Weight(Kg): [...] Interpretation Site: Exam was interpreted at [facility]. Left Ventricle: Normal left ventricular size. Normal [...] rhythm. Electronically Signed By: Chandler Mancilla MD, [facility] 2020-03-12 16:28:29 CDT us Chandler Mancilla MD CV ECHO PROCEDURES Final Result * POCT lipid panel (01/30/2020 9:08 AM CDT) Cholesterol, POC 190 mg/dL HDL, POC 84 mg/dL Triglycerides, POC <45 mg/dL LDL Cholesterol POC 93 mg/dL Chol/HDL Ratio, POC 2.3 Non-HDL Cholesterol, POC 106 mg/dL Cholesterol Total, POC 190 mg/dL Capillary blood 01/30/2020 9 :08 AM CDT Chandler Mancilla MD POINT OF CARE TEST ORDERABLES Fi nal Result documented in this encounter Visit Diagnoses Diagnosis Palpitations- Primary PAT (paroxysmal atrial tachycardia) (HCC) Paroxysmal supraventricular tachycardia PSVT (paroxysmal supraventricular tachycardia) (HCC) Paroxysmal supraventricular tachycardia Dizziness Dizziness and giddiness Status post placement of implantable loop recorder Non-small cell carcinoma of lung (HCC) Malignant neoplasm of bronchus and lung, unspecified site Chronic obstructive pulmonary disease, unspecified COPD type (HCC) Palpitations PAT (paroxysmal atrial tachycardia) (HCC) Paroxysmal supraventricular tachycardia Dizziness Dizziness and giddiness documented in this encounter Care Teams Grades 1 Through 6 Teacher Relationship Specialty Start Date End Date Michael hSerman MD [address] [place] [address] PCP - General 01/28/17 documented as of this encounter
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
--- OUTSIDE RECORDS SUMMARY | 2024-08-24 04:35 | XMS_ITS | Encounter Summary ---
Author Organization [facility] Address [address] [place] [address] Care Team Providers Care Modular Home Crew Member Name Role Phone Michael Sherman MD Primary Care Prov ider Neil Bates MD Unavailable Encounter Details Date Type Department Care Team (Late st Contact Info) Description 03/26/2020 Orders Only [facility] [address] [place] [address] Miscellaneous, Not In File Social History Tobacco Use Types Packs/Day Years Used Date Smoking Tobacco: Never Smokeless Tobacco: Never Alcohol Use Standard Drinks/Week Comments No 0 (1 standard drink = 0.6 oz pur e alcohol) Comments No Sex and Gender Information Value Date Recorded Sex Assigned at Not on file 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 Gender Identity Not on file Sexual Orientation Not on file documented as of this encounter Plan of Treatment Not on file documented as of this encounter Procedures Procedure Name Priority Date/Time Associated Diagnosis Comments DEVICE CHECK - REMOTE Routine 03/26/2020 10:48 AM CDT documented in this encounter Results * DEVICE CHECK - REMOTE (03/26/2020 10:48 AM CDT) Anatomical Region Laterality Modality Other 03/26/2020 10:4 8 AM CDT Narrative 04/02/2020 6:08 PM CDT Unscheduled Transmission Non Actionable Event Per Protocol Duplicate See note dated from 03/26/20 Deepa Mackenzie us Not In File Miscellaneous CV CARDIAC SERVICES HI OCEDURES Final Result documented in this encounter Visit Diagnoses Not on filedocumented in this encounter Care Teams Modular Home Crew Member Relationship Specialty Start Date End Date Michael Sherman MD [address] [place] [address] PCP - General 01/28/17 Neil Bates MD [address] [address] Consulting Physician Cardiology 03/17/20 documented as of this encounter
--- OUTSIDE RECORDS SUMMARY | 2024-08-24 04:35 | XMS_ITS | Encounter Summary ---
Author Organization [facility] Healthcare Address [address] [place] [address] Care Team Providers Care Magnetic Tester Name Role Phone Michael Sherman MD Primary Care Prov ider Neil Bates MD Unavailable Encounter Details Date Type Department Care Team (Latest Contact Info) Description 03/17/2020 10:36 AM CDT - 03/17/2020 12:58 PM CDT Hospital Encounter [facility] [address] [place] [id number] Luca Ayon MD [address] [address] Palpitations; PSVT (paroxysmal supraventricular tachycardia) ([facility]) Discharge Disposition: Discharge to home or self care Social History Tobacco Use Types Packs/Day Years Used Date Smoking Tobacco: Never Smokeless Tobacco: Never Alcohol Use Standard Drinks/Week Comments No 0 (1 standard drink = 0.6 oz pur e alcohol) Comments No Sex and Gender Information Value Date Recorded Sex Assigned at Not on file 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 Gender Identity Not on file Sexual [...] AM CDT documented in this encounter Discharge Diagnoses Diagnosis Encounter for adjustment and management of other cardiac device - ENCOUNTER FOR ADJUSTMENT AND MANAGEMENT OF OTHER CARDIAC DEVICE Palpitations - PALPITATIONS Syncope and collapse - SYNCOPE AND COLLAPSE Emphysema, unspecified (HCC) - EMPHYSEMA, UNSPECIFIED Major depressive disorder, single episode, unspecified - MAJOR DEPRESSIVE DISORDER, SINGLE EPISODE, UNSPECIFIED Migraine, unspecified, not intractable, without status migrainosus - MIGRAINE, UNSPECIFIED, NOT INTRACTABLE, WITHOUT STATUS MIGRAINOSUS Epilepsy, unspecified, not intractable, without status epilepticus (HCC) - EPILEPSY, UNSPECIFIED, NOT INTRACTABLE, WITHOUT STATUS EPILEPTICUS Disorder of thyroid, unspecified - DISORDER OF THYROID, UNSPECIFIED Personal history of other malignant neoplasm of bronchus and lung - PERSONAL HISTORY OF OTHER MALIGNANT NEOPLASM OF BRONCHUS AND LUNG Personal history of transient ischemic attack (TIA), and cerebral infarction without residual deficits - PERSONAL HISTORY OF TRANSIENT ISCHEMIC ATTACK (TIA), AND CEREBRAL INFARCTION WITHOUT RESIDUAL DEFICI Personal history of peptic ulcer disease - PERSONAL HISTORY OF PEPTIC ULCER DISEASE Family history of ischemic heart disease and other diseases of the circulatory system - FAMILY HISTORY OF ISCHEMIC HEART DISEASE AND OTHER DISEASES OF THE CIRCULATORY SYSTEM bed bug exterminator (current) use of aspirin - CARE HOME (CURRENT) USE OF ASPIRIN bed bug exterminator (current) use of inhaled steroids - OPTICAL MANAGER (CURRENT) USE OF INHALED STEROIDS Other retirement (current) drug therapy - OTHER CARE HOME (CURRENT) DRUG THERAPY documented in this encounter Discharge Instructions * Discharge Instructions* Ruba Thomason, MICHAEL - 03/17/2020 12:10 PM CDT Images from the original note were not included. Cardiac Laboratory [address] [place], [place] [address] [facility] Discharge Instructions---LINQ Insertable Cardiac Monitoring System A [...] system MAY include an activator ( Patient Private Branch Exchange Service Adviser ) to manually gaby events should you experience the symptoms for which your monitor was inserted. Your inserting physician will determine if this equipment is necessary for your situation. Should you need to manually gaby an event and then transmit that event via your bedside monitor, please notify the [facility] (8Tuesday through Tuesday or the next ) at [phone] so your transmission can be reviewed. SPECIAL [...] Patient/Family Signature: Date: Staff Signature/Title: Date: [employer] Infectious Diseases Physician: Date: Cardiac Laboratory [address] [place], [place] [address] [facility] Discharge Instructions---LINQ Insertable Cardiac Monitoring System A [...] system MAY include an activator ( Patient Private Branch Exchange Service Adviser ) to manually gaby events should you experience the symptoms for which your monitor was inserted. Your inserting physician will determine if this equipment is necessary for your situation. Should you need to manually gaby an event and then transmit that event via your bedside monitor, please notify the [facility] (8-Tuesday through Tuesday or the next day) at [phone] so your transmission can be reviewed. SPECIAL [...] Patient/Family Signature: Date: Staff Signature/Title: Date: [employer] Infectious Diseases Physician: Date: documented in this encounter Medications at [...] after use. Do not swallow. 60 each 12/13/2019 1 loratadine (CLARITIN) 10 mg tablet Take 10 mg by mouth daily 10/01/2019 1 metoprolol tartrate (LOPRESSOR) 25 mg immediate release tablet Take 1 tablet (25 mg total) by mouth 2 (two) times a day 60 tablet 02/27/2020 0 montelukast (SINGULAIR) 10 mg tablet [...] : Procedure(s): IMPLANTABLE CARDIAC EVENT MONITOR INSERTION 65446 MDT IMPLANTABLE CARDIAC EVENT MONITOR REMOVAL 46757 MDT Source Note - Luca Ayon MD [...] ??? Asthma Asthma ??? Asthma Asthma; Comments: [facility] 10/10/2014 - ??? Brain concussion Multiple .....Last Jun 2018 ??? Cancer of lung ([facility]/HCC) Cancer, lung ??? Cerebrovascular accident (CVA) ([facility]/HCC) Stroke ??? Chronic bronchitis ([facility]/HCC) 2009 ??? Clotting disorder ([facility]/HCC) 1961 ??? Depression Depression ??? Emphysema of lung (CMS/HCC) 2015 ??? HX OTHER MEDICAL NSCLC 1a- adenocarcinoma ??? HX OTHER MEDICAL palpitations ??? HX OTHER MEDICAL 2012 Small lacunar infarct- basal ganglia ??? HX OTHER MEDICAL hx gestational diabetes ??? HX OTHER MEDICAL chronic bronchitis ??? HX OTHER MEDICAL ENCEPHALITIS ??? HX OTHER MEDICAL seizure disorder; Comments: [facility] 10/10/2014 - ??? HX OTHER MEDICAL encephalitis; Comments: [facility] 10/10/2014 - ??? HX OTHER MEDICAL 2010 lung cancer surgery; Comments: [facility] 10/10/2014 - ??? HX OTHER MEDICAL scoliosis; Comments: [facility] 10/10/2014 - ??? HX OTHER MEDICAL carpal tunnel; Comments: [facility] 10/10/2014 - ??? HX OTHER MEDICAL headaches; Comments: [facility] 10/10/2014 - ??? HX OTHER MEDICAL neuropathy; Comments: [facility] 10/10/2014 - ??? HX OTHER MEDICAL 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 ??? Migraines 2008 ??? Neuromuscular disorder (CMS/HCC) 2009 ??? Peptic [...] at the same site.. Explanted device information: ??[id number] Conclusion Successful explantation of ILR Luca Ayon [...] use. There were no complications.. Device Data: [id number] Conclusion: ?? Successful placement of an ILR [...] tachycardia documented in this encounter Administered Medications documented in this encounter Active and Recently [...] acetaminophen (TYLENOL) tablet 650 mg 1 10/2019 lidocaine-EPINEPHrine (XYLOC DANIS with EPI) 2 %-1:100,000 injection 1 03/17/2020 ondansetron (ZOFRAN) injection 4 mg 1 03/17 sodium chloride 0.9% flush 0.5-20 mL 2 10/2019 Diet Count Last Ordered Date First Orde [...] 03/17/2020 documented in this encounter Care Teams Magnetic Tester Relationship Specialty Start Date End Date Michael Sherman MD [address] [place] [address] PCP - General 01/28/17 Neil Bates MD [address] [address] Consulting Physician Cardiology 03/17/20 documented as of this encounter
--- OUTSIDE RECORDS SUMMARY | 2024-08-24 04:35 | XMS_ITS | Encounter Summary ---
Author Organization [facility] Address [address] [place] [address] Care Team Providers Care Reproduction Artist Name Role Phone Michael Sherman MD Primary Care Prov ider Reason for Visit * Reason Onset Date Comments Monitor Scanned 02/25/2020 Encounter Details Date Type Department Care Team (Late st Contact Info) Description 02/25/2020 Telephone [facility] [address] [place] [address] Luca Ayon MD [address] [place] [address] Monitor Scanned Social History Tobacco Use Types Packs/Day Years Used Date Smoking Tobacco: Never Smokeless Tobacco: Never Alcohol Use Standard Drinks/Week Comments No 0 (1 standard drink = 0.6 oz pur e alcohol) Comments No Sex and Gender Information Value Date Recorded Sex Assigned at Not on file 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 documented in this encounter Plan of Treatment Not on file documented as of this encounter Visit Diagnoses Not on filedocumented in this encounter Care Teams Reproduction Artist Relationship Specialty Start Date End Date Michael Sherman MD [address] [place] [address] PCP - General 01/28/17 documented as of this encounter
--- OUTSIDE RECORDS SUMMARY | 2024-08-24 04:36 | XMS_ITS | Encounter Summary ---
Author Organization [facility] Address [address] [place] [address] Phone Care Team Providers Care Javascript Application Developer Name Role Phone Michael Sherman MD Primary Care Prov ider Encounter Details Date Type Department Care Team (Late st Contact Info) Description 07/27/2019 Telephone [facility] Neurosurgery [address] 6th [place] [address] [place] [address] Kush Walls MD [address] [address] Social History Tobacco Use Types Packs/Day Years Used Date Smoking Tobacco: Never Alcohol Use Standard Drinks/Week Comments No 0 (1 standard drink = 0.6 oz pur e alcohol) Comments No Sex and Gender Information Value Date Recorded Sex Assigned at Not on file 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 Gender Identity Not on file Sexual Orientation Not on file documented as of this encounter Miscellaneous Notes * Telephone Encounter - Lala Bee MA - 08/07/2019 9:36 AM CST Scheduled Reminder mailed GER INDUSTRIAL * Telephone Encounter - Lala Bee MA - 07/27/2019 7:25 AM CST Due for follow up 09/2019 GER INDUSTRIAL documented in this encounter Plan of Treatment Not on file documented as of this encounter Visit Diagnoses Not on filedocumented in this encounter Care Teams Javascript Application Developer Relationship Specialty Start Date End Date Michael Sherman MD [address] [place] [address] PCP - General 01/28/17 documented as of this encounter
--- OUTSIDE RECORDS SUMMARY | 2024-08-24 04:36 | XMS_ITS | Encounter Summary ---
Author Organization [facility] Address [address] [address] Care Team Providers Care [address] Freight Name Role Phone Jason Whyte MD Primary Care Provider [phone] Michael Sherman MD Primary Care Prov ider Jason Whyte MD Primary Care Provider [phone] Michael Sherman MD Primary Care Prov ider Neil Bates MD Unavailable Encounter Details Date Type Department Care Team (Late st Contact Info) Description 2016 Orders Only [facility] ProviderMarisabel MD [address] [place] [address] Social History Tobacco Use Types Packs/Day Years Used Date Smoking Tobacco: Never Alcohol Use Standard Drinks/Week Comments No 0 (1 standard drink = 0.6 oz pur e alcohol) Comments Unknown Sex and Gender Information Value Date Recorded Sex Assigned at Not on file 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 us Historical Provider [facility] Final Result documented in this encounter Visit Diagnoses Not on filedocumented in this encounter Care Teams [address] Freight Relationship Specialty Start Date End Date Jason Whyte MD PCP - General 11/12/16 01/27/17 Michael Sherman MD [address] [place] [address] PCP - General 10/26/16 11/11/16 Jason Whyte MD PCP - General 03/14/15 10/25/16 Michael Sherman MD [address] [place] [address] PCP - General 01/28/17 Neil Bates MD [address] [address] Consulting Physician Cardiology 03/17/20 documented as of this encounter
--- OUTSIDE RECORDS SUMMARY | 2024-08-24 04:36 | XMS_ITS | Encounter Summary ---
Author Organization [facility] Address [address] [facility] [address] [place] [address] Phone Care Team Providers Care Dealership Manager Name Role Phone Michael Sherman MD Primary Care Prov ider Reason for Referral * Pulmonology (Routine) - Closed Specialty Diagnoses / Procedures Referred By Contfinn t Referred To Contact Pulmonary Disease Diagnoses Moderate persistent asthma, unspecified whether complicated Procedures Pulmonary Function Test -[facility] PFT Lab- CAM-8D; Spirometry, Spirometry with Bronchodilator, Oxygen Assessment Titration, Lung Volumes, DLCO; Pleth with Airway Resistance; Spirometry Bi Ware MD [facility] [address] [place] [address] Phone: tel: fax: Referral ID Status Reason Start Date Expiration Date Visits Re quested Visits Authorized [id number] Closed 09/10/2019 03/21/2021 6 6 Reason for Visit * Pulmonology (Routine) - Closed Specialty Diagnoses / Procedures Referred By Contac t Referred To Contact Pulmonary Disease Diagnoses Moderate persistent asthma, unspecified whether complicated Procedures Pulmonary Function Test -[facility] PFT Lab- CAM-8D; Spirometry, Spirometry with Bronchodilator, Oxygen Assessment Titration, Lung Volumes, DLCO; Pleth with Airway Resistance; Spirometry Bi Ware MD [address] [place] [address] Phone: tel: fax: Referral ID Status Reason Start Date Expiration Date Visits Re quested Visits Authorized [id number] Closed 09/10/2019 03/21/2021 6 6 Encounter Details Date Type Department Care Team (Latest Contact Info) Description 11/15/2019 1:30 PM CDT - 11/15/2019 11:59 PM CDT Hospital Encounter [facility] Pulmonary [address] [place] [address] Moderate persistent asthma, unspecified whether complicated Discharge [...] on file 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 Gender Identity Not on file Sexual Orientation [...] as needed 0 Inhaler 0 12/11/2015 1 loratadine (CLARITIN) 10 mg tablet Take 10 mg by mouth daily 10/01/2019 1 montelukast (SINGULAIR) 10 mg tablet Take 10 mg by mouth nightly 10/01/2019 1 montelukast (SINGULAIR) 10 mg tablet Take 10 mg by mouth daily 10/01/2019 2 Qvar RediHaler 80 mcg/actuation inhaler 07/25/2019 0 documented as of this encounter Discharge Disposition Disposition Code Departure Means Destination Discharge to home or self care documented in this encounter Plan of Treatment Not on file documented as of this encounter Procedures Procedure Name Priority Date/Time Associated Diagnosis Comments PULMONARY FUNCTION TEST (PFT) Routine 11/15/2019 2:40 PM CDT Moderate persistent asthma, unspecified whether complicated documented in this encounter Results * Pulmonary Function Test - (11/15/2019 2:40 PM CDT) FVC PRED 3.88 0.05 - 9.99 Liters [facility] FVC PRE 3.39 0 - 12 Liters [facility] FVC %PRE PRED 87 0 - 300 % [facility] FEV1 PRED 3.03 0.05 - 9.99 Liters [facility] FEV1 PRE 1.95 0 - 12 Liters [facility] FEV1 %PRE PRED 64 0 - 300 % [facility] FEV1/FVC PRED 79 1 - 99 % [facility] FEV1/FVC PRE 57 0 - 12 % [facility] ZWF90-67% PRED 2.61 0 - 12 L/sec [facility] RFK42-81% PRE 0.77 0 - 12 L/sec [facility] KLX70-37% %PRE PRED 30 0 - 300 % [facility] FEF75% PRED 0.80 0 - 300 L/sec [facility] FEF75% PRE 0.27 0 - 12 L/sec [facility] FEF75% %PRE PRED 34 % [facility] PEF PRED 6.44 0 - 18 L/sec [facility] PEF PRE 4.32 0 - 18 L/sec [facility] PEF %PRE PRED 67 0 - 300 % [facility] PIF PRE 3.34 0 - 18 L/sec [facility] FEV6 PRE 3.11 0 - 12 Liters [facility] FEV1/FEV6 PRE 63 0 - 12 % [facility] VC PRED 3.67 0.05 - 9.99 Liters [facility] VC PRE 3.47 0.05 - 9.99 Liters [facility] VC %PRE PRED 95 0 - 300 % [facility] TLC PRED 5.91 0.05 - 11.99 Liters [facility] TLC PRE 5.54 0.05 - 11.99 Liters [facility] TLC %PRE PRED 94 0 - 300 % [facility] RV PRED 2.25 0.05 - 9.99 Liters [facility] RV PRE 2.07 0.05 - 9.99 Liters [facility] RV %PRE PRED 92 0 - 300 % [facility] RV/TLC PRED 39 0 - 300 % [facility] RV/TLC PRE 37 0 - 300 % [facility] FRC N2 PRED 2.87 0.05 - 9.99 Liters [facility] FRC PL PRED 3.37 0.05 - 9.99 Liters [facility] FRC PL PRE 3.05 0.05 - 9.99 Liters [facility] FRC PL %PRE PRED 90 0 - 300 % [facility] ERV PRED 1.26 0.05 - 9.99 Liters [facility] ERV PRE 1.04 0.05 - 9.99 Liters [facility] ERV %PRE PRED 82 0 - 300 % [facility] IC PRE 2.49 0.05 - 9.99 Liters [facility] DLCO PRED 28.4 0.05 - 99.99 mL/mmHg/min [facility] DLCO PRE 19.5 mL/mmHg/min [facility] DLCO %PRE PRED 68 0 - 300 % [facility] DL ADJ PRED 28.4 1 - 2 mL/mmHg/min [facility] DL ADJ PRE 19.5 1 - 2 mL/mmHg/min [facility] DL ADJ %PRE PRED 68 0 - 300 % [facility] DLCO/VA PRED 5.11 mL/mHg/min/ L [facility] DLCO/VA PRE 4.63 mL/mHg/min/ L [facility] DLCO/VA %PRE PRED 91 % [facility] DL/VA ADJ PRED 3.94 mL/mHg/min/ L [facility] DL/VA ADJ %PRE PRED 118 % [facility] VA PRE 4.21 Liters [facility] RAW PRED 1.11 cmH2O/L/sec [facility] RAW PRE 2.26 cmH2O/L/sec [facility] RAW %PRE PRED 203 % [facility] GAW PRED 0.809 L/sec/cmH2O [facility] GAW PRE 0.443 L/sec/cmH2O [facility] GAW %PRE PRED 55 % [facility] SRAW PRED 3.75 cmH2O/L/s/L [facility] SRAW PRE 7.35 cmH2O/L/s/L [facility] SRAW %PRE PRED 196 % [facility] SGAW PRED 0.268 L/s/cmH2O/L [facility] SGAW PRE 0.136 L/s/cmH2O/L [facility] SGAW %PRE PRED 51 % [facility] Anatomical Region Laterality Modality PFT 11/15/2019 2:01 PM CDT Narrative 11/21/2019 3:23 PM CDT [facility] Division of Pulmonary & Critical Care Medicine [address] [place] [address]; [place] [facility]; [place], [place] ??[address]; [phone] Pulmonary Function Laboratory Pulmonary Stress Test Simple/Oxygen Assessment Patient: Yane Fagan Date: 11/15/2019 Physician: Chaz Ht: 69.5 in ?? Wt: 138 lbs Room: OP Project Coach: Darian : 1960 Diagnosis: PAH, Chronic Pulmonary Embolism Time(min) Distance (ft)/ Resendez O2 L/M SpO2 HR Jony* BP FEV1/ ?% Pred Rest: ?RA 98 75 2 126/83 1.95/64 ? Walk/Bike: ? 1 ??RA 99 83 2 ?? 2 ??RA 99 79 2 ?? 3 ??RA 99 82 3 ?? 4 ??RA 99 87 3 ?? 5 ??RA 100 89 3 ?? 6 min 0 sec ??1200 RA 100 89 3 ?? Recovery: ? 1 ??RA 98 71 3 128/75 2. 2 ??RA 100 76 2 ? *Jony rate of perceived exertion (1-10 dyspnea scale) ?? Victoriano, CHEST 2003; 123:[id number] Walk Test Summary: Six Minute Walk Distance: 1,200 ft Six minute Walk Work [distance (m) x body wt (kg)]: 22,853 kg.m (normal >60,000 kg.m) Oxygen required to maintain SpO2 greater than 90% during six minutes of walking: ??L/M Comments: No stops, O2A Interpretation: Breathing room air, SpO2 is normal at rest and during exercise sufficient to increase pulse from 75 to 89 b/min, SpO2 is stable. ??On this basis, SpO2 is adequate at rest breathing room air and while walking breathing room air. ??This level of exercise is associated with no significant change of FEV1. Roddy Riddle MD By signing this report, the attending pulmonary physician certifies that he/she has personally reviewed and interpreted the graphic and numerical data associated with this pulmonary function study and has reviewed and /or edited a preliminary draft report and agrees with the written final report. Bi Ware MD PFT ORDERABLES Krystyna l Result documented in this encounter Visit Diagnoses Diagnosis Moderate persistent asthma, unspecified whether complicated documented in this encounter Care Teams Dealership Manager Relationship Specialty Start Date End Date Michael Sherman MD [address] [place] [address] PCP - General 01/28/17 documented as of this encounter
--- OUTSIDE RECORDS SUMMARY | 2024-08-24 04:36 | XMS_ITS | Encounter Summary ---
Author Organization [facility] Address [address] [facility] [address] [place] [address] Phone Care Team Providers Care Corner Cutter Machine Operator Name Role Phone Michael Sherman MD Primary Care Prov ider Neil Bates MD Unavailable Encounter Details Date Type Department Care Team (Latest Contact Info) Description 07/18/2017 Orders Only [facility] CONVERSION Scanning, Provider Social History Tobacco Use Types Packs/Day Years Used Date Smoking Tobacco: Never Alcohol Use Standard Drinks/Week Comments No 0 (1 standard drink = 0.6 oz pur e alcohol) Comments Unknown Sex and Gender Information Value Date Recorded Sex Assigned at Not on file 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 Gender Identity Not on file Sexual Orientation Not on file documented as of this encounter Plan of Treatment Not on file documented as of this encounter Procedures Procedure Name Priority Date/Time Associated Diagnosis Comments PULMONARY FUNCTION TEST (PFT) 07/18/2017 7:09 AM INSERTING MACHINE OPERATOR documented in this encounter Results * PULMONARY FUNCTION TEST (PFT) (07/18/2017 7:09 AM INSERTING MACHINE OPERATOR) Anatomical Region Laterality Modality PFT us Provider Scanning PFT ORDERABLES Final Result documented in this encounter Visit Diagnoses Not on filedocumented in this encounter Care Teams Corner Cutter Machine Operator Relationship Specialty Start Date End Date Michael Sherman MD [address] [place] [address] PCP - General 01/28/17 Neil Bates MD [address] [address] Consulting Physician Cardiology 03/17/20 documented as of this encounter
--- OUTSIDE RECORDS SUMMARY | 2024-08-24 04:36 | XMS_ITS | Encounter Summary ---
Author Organization [facility] Medical Group Address [address] [address] Care Team Providers Care In House Cra Name Role Phone Michael Sherman MD Primary Care Prov ider Reason for Visit * Cardiology (Routine) - Closed Specialty Diagnoses / Procedures Referred By Contfinn herbert Referred To Contact Diagnoses Palpitations Procedures DEVICE CHECK - REMOTE Neil Bates MD Phone: tel: fax: Referral ID Status Reason Start Date Expiration Date Visits Re quested Visits Authorized [id number] Closed 02/19/2017 08/18/2017 1 1 Encounter Details Date Type Department Care Team (Latest Contact Info) Description 03/14/2017 8:00 AM CDT Ancillary Procedure [facility] Medical [facility] Cardiology [address] [place] [phone] Palpitations; Status post placement of implantable loop recorder Social History Tobacco Use Types Packs/Day Years Used Date Smoking Tobacco: Never Alcohol Use Standard Drinks/Week Comments No 0 (1 standard drink = 0.6 oz pur e alcohol) Comments Unknown Sex and Gender Information Value Date Recorded Sex Assigned at Not on file 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
--- OUTSIDE RECORDS SUMMARY | 2024-08-24 04:36 | XMS_ITS | Encounter Summary ---
Author Organization [facility] Medical Group Address [address] [address] Care Team Providers Care Director Radiation Oncology Name Role Phone Michael Sherman MD Primary Care Prov ider Reason for Visit * Cardiology (Routine) - Canceled Specialty Diagnoses / Procedures Referred By Contac t Referred To Contact Diagnoses Palpitations Procedures DEVICE CHECK - REMOTE Neil Bates MD Phone: tel: fax: Referral ID Status Reason Start Date Expiration Date V isits Requested Visits Authorized [id number] Canceled 11/08/2017 05/07/2018 1 1 Encounter Details Date Type Department Care Team (Latest Contact Info) Description 03/06/2018 9:45 AM CDT Ancillary Procedure [facility] Medical [facility] Cardiology [facility] [address] [phone] Palpitations; Status post placement of implantable loop recorder Social History Tobacco Use Types Packs/Day Years Used Date Smoking Tobacco: Never Alcohol Use Standard Drinks/Week Comments No 0 (1 standard drink = 0.6 oz pur e alcohol) Comments Unknown Sex and Gender Information Value Date Recorded Sex Assigned at Not on file 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
--- OUTSIDE RECORDS SUMMARY | 2024-08-24 04:36 | XMS_ITS | Encounter Summary ---
Author Organization [facility] Address [address] [facility] [address] [place] [address] Phone Care Team Providers Care Vamp Wetter Name Role Phone Michael Sherman MD Primary Care Prov ider Reason for Referral * Pulmonology (Routine) - Closed Specialty Diagnoses / Procedures Referred By Contac t Referred To Contact Pulmonary Disease Diagnoses Moderate persistent asthma, unspecified whether complicated Procedures Pulmonary Function Test -[facility] U Adult PFT Lab- [facility]-8D; Spirometry, Spirometry with Bronchodilator, Oxygen Assessment Titration, Lung Volumes, DLCO; Pleth with Airway Resistance; Spirometry Bi Ware MD [address] [place] [address] Phone: tel: fax: Referral ID Status Reason Start Date Expiration Date Visits Re quested Visits Authorized [id number] Closed 09/10/2019 03/21/2021 6 6 RVISOR TAPING Encounter Details Date Type Department Care Team (Late st Contact Info) Description 09/10/2019 Orders Only [facility] Pulmonary [address] [facility] Medicine 8th [place] [address] [place] [address] Martínez Wilcox RN Moderate persistent asthma, unspecified whether complicated (Primary Dx) Social History Tobacco Use Types Packs/Day Years Used Date Smoking Tobacco: Never Alcohol Use Standard Drinks/Week Comments No 0 (1 standard drink = 0.6 oz pur e alcohol) Comments No Sex and Gender Information Value Date Recorded Sex Assigned at Not on file Legal Sex Female 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 SUPERVISOR TAPING Gender Identity Not on file Sexual Orientation Not on file documented as of this encounter Plan of Treatment Not on file documented as of this encounter Results * Pulmonary Function Test - (11/15/2019 2:40 PM CDT) FVC PRED 3.88 0.05 - 9.99 Liters [facility] FVC PRE 3.39 0 - 12 Liters [facility] FVC %PRE PRED 87 0 - 300 % [facility] FEV1 PRED 3.03 0.05 - 9.99 Liters [facility] FEV1 PRE 1.95 0 - 12 Liters [facility] FEV1 %PRE PRED 64 0 - 300 % [facility] FEV1/FVC PRED 79 1 - 99 % [facility] FEV1/FVC PRE 57 0 - 12 % [facility] MCC07-84% PRED 2.61 0 - 12 L/sec [facility] SLX10-67% PRE 0.77 0 - 12 L/sec [facility] YKX03-16% %PRE PRED 30 0 - 300 % [facility] FEF75% PRED 0.80 0 - 300 L/sec [facility] FEF75% PRE 0.27 0 - 12 L/sec [facility] FEF75% %PRE PRED 34 % [facility] PEF PRED 6.44 0 - 18 L/sec [facility] PEF PRE 4.32 0 - 18 L/sec [facility] PEF %PRE PRED 67 0 - 300 % [facility] PIF PRE 3.34 0 - 18 L/sec [facility] FEV6 PRE 3.11 0 - 12 Liters [facility] FEV1/FEV6 PRE 63 0 - 12 % [facility] VC PRED 3.67 0.05 - 9.99 Liters [facility] VC PRE 3.47 0.05 - 9.99 Liters [facility] VC %PRE PRED 95 0 - 300 % [facility] TLC PRED 5.91 0.05 - 11.99 Liters [facility] TLC PRE 5.54 0.05 - 11.99 Liters [facility] TLC %PRE PRED 94 0 - 300 % [facility] RV PRED 2.25 0.05 - 9.99 Liters [facility] RV PRE 2.07 0.05 - 9.99 Liters [facility] RV %PRE PRED 92 0 - 300 % [facility] RV/TLC PRED 39 0 - 300 % [facility] RV/TLC PRE 37 0 - 300 % [facility] FRC N2 PRED 2.87 0.05 - 9.99 Liters [facility] FRC PL PRED 3.37 0.05 - 9.99 Liters [facility] FRC PL PRE 3.05 0.05 - 9.99 Liters [facility] FRC PL %PRE PRED 90 0 - 300 % [facility] ERV PRED 1.26 0.05 - 9.99 Liters [facility] ERV PRE 1.04 0.05 - 9.99 Liters [facility] ERV %PRE PRED 82 0 - 300 % [facility] IC PRE 2.49 0.05 - 9.99 Liters [facility] DLCO PRED 28.4 0.05 - 99.99 mL/mmHg/min [facility] DLCO PRE 19.5 mL/mmHg/min [facility] DLCO %PRE PRED 68 0 - 300 % [facility] DL ADJ PRED 28.4 1 - 2 mL/mmHg/min [facility] DL ADJ PRE 19.5 1 - 2 mL/mmHg/min [facility] DL ADJ %PRE PRED 68 0 - 300 % [facility] DLCO/VA PRED 5.11 mL/mHg/min/ L [facility] DLCO/VA PRE 4.63 mL/mHg/min/ L [facility] DLCO/VA %PRE PRED 91 % [facility] DL/VA ADJ PRED 3.94 mL/mHg/min/ L [facility] DL/VA ADJ %PRE PRED 118 % [facility] VA PRE 4.21 Liters [facility] RAW PRED 1.11 cmH2O/L/sec [facility] RAW PRE 2.26 cmH2O/L/sec [facility] RAW %PRE PRED 203 % [facility] GAW PRED 0.809 L/sec/cmH2O [facility] GAW PRE 0.443 L/sec/cmH2O [facility] GAW %PRE PRED 55 % [facility] SRAW PRED 3.75 cmH2O/L/s/L [facility] SRAW PRE 7.35 cmH2O/L/s/L [facility] SRAW %PRE PRED 196 % [facility] SGAW PRED 0.268 L/s/cmH2O/L [facility] SGAW PRE 0.136 L/s/cmH2O/L [facility] SGAW %PRE PRED 51 % [facility] Anatomical Region Laterality Modality PFT 11/15/2019 2:01 PM CDT Narrative 11/21/2019 3:23 PM CDT [facility] Division of Pulmonary & Critical Care Medicine [address] [place] [address]; [place] [facility]; [place], [place] [address]; [phone] Pulmonary Function Laboratory Pulmonary Stress Test Simple/Oxygen Assessment Patient: Yane Fagan Date: 11/15/2019 Physician: Chaz Ht: 69.5 in ?? Wt: 138 lbs Room: OP Weed Cooking Operator: Darian : 1960 Diagnosis: PAH, Chronic Pulmonary Embolism Time(min) Distance (ft)/ Resendez O2 L/M SpO2 HR Jony* BP FEV1/ ?% Pred Rest: ?RA 98 75 2 126/83 1./64 ? Walk/Bike: ? 1 ??RA 99 83 [...] complicated documented in this encounter Care Teams Vamp Wetter Relationship Specialty Start Date End Date Michael Sherman MD [address] [place] [address] PCP - General 01/28/17 documented as of this encounter
--- OUTSIDE RECORDS SUMMARY | 2024-08-24 04:36 | XMS_ITS | Encounter Summary ---
Author Organization [facility] Medical Group Address [address] [facility] [address] [place] [address] Care Team Providers Care Harness Fitter Name Role Phone Michael Sherman MD Primary Care Prov ider Encounter Details Date Type Department Care Team (Late st Contact Info) Description 05/01/2018 Telephone [facility] [address] [facility] [address] [place] [address] Neil Bates MD [address] [address] Social History Tobacco Use Types Packs/Day Years Used Date Smoking Tobacco: Never Alcohol Use Standard Drinks/Week Comments No 0 (1 standard drink = 0.6 oz pur e alcohol) Comments Unknown Sex and Gender Information Value Date Recorded Sex Assigned at Not on file 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 * Telephone Encounter - Ashanti Kumar - 05/01/2018 4:39 PM CDT Pt called about the letter she received about her monitor not communicating with her loop recorder.Pt says since she has [employer] insurance, she was told that we would no longer be monitoring her looprecorder and is confused about why she received a bill over the weekend for $728 for loop recorder monitoring. Pt called the billing office. cb [phone] documented in this encounter Plan of Treatment Not on file documented as of this encounter Visit Diagnoses Not on filedocumented in this encounter Care Teams Harness Fitter Relationship Specialty Start Date End Date Michael Sherman MD [address] [place] [address] PCP - General 01/28/17 documented as of this encounter
--- OUTSIDE RECORDS SUMMARY | 2024-08-24 04:36 | XMS_ITS | Encounter Summary ---
Author Organization [facility] Medical Group Address [address] [address] Care Team Providers Care Admissions Gate Attendant Name Role Phone Michael Sherman MD Primary Care Prov ider Reason for Visit * Cardiology (Routine) - Closed Specialty Diagnoses / Procedures Referred By Contfinn herbert Referred To Contact Diagnoses Palpitations Procedures DEVICE CHECK - REMOTE Neil Bates MD Phone: tel: fax: Referral ID Status Reason Start Date Expiration Date Visits Re quested Visits Authorized [id number] Closed 02/19/2017 08/18/2017 1 1 Encounter Details Date Type Department Care Team (Latest Contact Info) Description 05/23/2017 8:00 AM CDT Ancillary Procedure [facility] Medical 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
--- OUTSIDE RECORDS SUMMARY | 2024-08-24 04:36 | XMS_ITS | Encounter Summary ---
Author Organization [facility] Address [address] [facility] [address] [place] [address] Phone Care Team Providers Care Stone Lathe Operator Name Role Phone Michael Sherman MD Primary Care Prov ider Reason for Visit * Consultation (Routine) - Closed Specialty Diagnoses / Procedures Referred By Chelsy herbert Referred To Contact Neurosurgery Diagnoses 2yr pituitary adenoma f/u MRI prior Procedures RETURN Michael Sherman MD [address] [place] [address] Phone: tel: fax: David Odell NP [address] [address] Phone: tel: fax: Referral ID Status Reason Start Date Expiration Date Visits Re quested Visits Authorized [id number] Closed 10/08/2019 04/18/2021 99 99 Encounter Details Date Type Department Care Team (Late st Contact Info) Description 10/08/2019 1:00 PM WIRE COILER MACHINE OPERATOR Office Visit [facility] Neurosurgery [address] [facility] 6th [place] [address] [place] [address] David Odell NP [address] [address] Pituitary gland enlarged (CMS/HCC) (Primary Dx); Pituitary adenoma ([facility]/HCC) Social History Tobacco Use Types Packs/Day Years Used Date Smoking Tobacco: Never Smokeless Tobacco: Never Tobacco Cessation:Counseling Given: No Alcohol Use Standard Drinks/Week Comments No 0 (1 standard drink = 0.6 oz pur e alcohol) Comments No Sex and Gender Information Value Date Recorded Sex Assigned at Not on file Legal Sex Female 11:00 AM WIRE COILER MACHINE OPERATOR Gender Identity Not on file Sexual Orientation Not on file documented as of this encounter Last Filed Vital Signs Vital Sign Reading Time Taken Comments Blood Pressure 105/69 10/08/2019 12:58 PM WIRE COILER MACHINE OPERATOR Pulse 65 10/08/2019 12:58 PM WIRE COILER MACHINE OPERATOR Temperature - - Respiratory Rate - - Oxygen Saturation - - Inhaled Oxygen Concentration - - Weight 61.2 kg (135 lb) 10/08/2019 12:58 PM WIRE COILER MACHINE OPERATOR Height 177.8 cm (5' 10 ) 10/08/2019 12:58 PM WIRE COILER MACHINE OPERATOR Body Mass Index 19.37 10/08/2019 12:58 PM WIRE COILER MACHINE OPERATOR documented in this encounter Progress Notes * David Odell NP - 10/08/2019 1:00 PM CST Images from the original note were not included. NEW PATIENT VISIT CHIEF COMPLAINT Pituitary abnormality HISTORY OF PRESENT ILLNESS Yane Fagan is a 59 y.o. female with a history of pituitary abnormality. She was initially diagnosed with this in 2010. She was diagnosed with an large pituitary gland versus a pituitary adenoma. She has been followed for this for several years. She comes in today for routine follow-up. She states she does have occasional issues with vision. She has occasional headaches. She does not complain of any issues with weakness or numbness. No bowel or bladder difficulties. PAST MEDICAL HISTORY She has a past medical history of Asthma, Asthma, Cancer of lung ([facility]), Cerebrovascular accident (CVA) ([facility]), Depression, OTHER MEDICAL, OTHER MEDICAL, OTHER MEDICAL (2011), OTHER MEDICAL, OTHER MEDICAL, OTHER MEDICAL, OTHER MEDICAL, OTHER MEDICAL, OTHER MEDICAL (2009), OTHER MEDICAL, OTHERMEDICAL, OTHER MEDICAL, OTHER MEDICAL, OTHER MEDICAL, and Seizure disorder ([facility]). She also has no past medical history of Diabetes mellitus (CMS/HCC). PAST SURGICAL HISTORY She has a past surgical history that includes Other surgical history; section; Tonsillectomy; and PET Limited Ga-68 MRI Abdomen W WO Contrast (N/A, 01/12/2013). FAMILY HISTORY Her family history includes Arthritis in her mother; Asthma in an other family member; Cancer in another family member; Diabetes in her father and another family member; Emphysema in her maternal grandfather; Heart disease in her maternal grandfather and another family member; Heart failure in hermaternal great-grandfather; Hypertension in some other family members; Liver cancer in her father; Lung cancer in her father and maternal grandfather; Neuropathy in her sister; Osteoarthritis in an other family member; Other in her mother and another family member; Prostate cancer in her father; Stroke in an other family member. MEDICATIONS Current Outpatient Medications: ??? albuterol sulfate (PROAIR RESPICLICK) 90 mcg/actuation aerosol powdr breath activated, inhale 2puff by inhalation route every 4 - 6 hours as needed, Disp: 0 Inhaler, Rfl: 0 ??? aspirin (ASPIR-81) 81 mg tablet, take 1 tablet by oral route every day, Disp: 0, Rfl: 0 ??? loratadine (CLARITIN) 10 mg tablet, Take 10 mg by mouth daily, Disp: , Rfl: ??? montelukast (SINGULAIR) 10 mg tablet, , Disp: , Rfl: ??? Qvar RediHaler 80 mcg/actuation inhaler, , Disp: , Rfl: ALLERGIES She is allergic to adhesive; amoxicillin; doxycycline; penicillins; procaine; tree nut; amitriptyline; carbamazepine; cigarette smoke; coconut; coconut oil; codeine; divalproex; gabapentin; house dust; hydrocodone; hydromorphone; lamotrigine; latex; morphine; oxycodone; peanut; poison roslyn extract; pollens extract; potassium clavulanate; prochlorperazine; prochlorperazine maleate; shellfish containing products; shellfish derived; topiramate; valproic acid; valproic acid analogues; and peanut oil. SOCIAL HISTORY She reports that she has never smoked. She has never used smokeless tobacco. She reports that she does not drink alcohol or use drugs. REVIEW OF SYSTEMS ROS A complete review of 10 systems was completed and negative unless noted above in history of presentillness or intake questionnaire. Objective VITAL SIGNS BP 105/69 Pulse 65 Ht 177.8 cm (5' 10 ) Wt 61.2 kg (135 lb) BMI 19.37 kg/m?? PHYSICAL EXAM On the exam She awake, alert and oriented x3. Pupils are equal and reactive to light. Extraocular movements are intact. Cranial nerve exam is intact. Moves all extremities with equal strength. No issues with Tandem walk. REVIEW OF IMAGES Unchanged uniformly enhancing, prominent pituitary gland, which is again favored to represent anatomic variation rather than a pituitary adenoma given long-term stability Plan Yane Fagan doing well from neurosurgery standpoint. Her MRI stable. As discussed with her would like to see her back in 3 years or certainly sooner if any new issues arise. COILER MACHINE OPERATOR documented in this encounter Plan of Treatment Not on file documented as of this encounter Visit Diagnoses Diagnosis Pituitary gland enlarged (HCC)- Primary Other disorders of the pituitary and other syndromes of diencephalohypophyseal origin Pituitary adenoma (HCC) Benign neoplasm of pituitary gland and craniopharyngeal duct (pouch) documented in this encounter Discontinued Medications Medication Sig Discontinue Reason Start Date End Da te aclidinium (TUDORZA) 400 mcg/actuation inhaler Inhale 1 puff 2 (two) times a day. Therapy completed 10/08/2019 albuterol HFA (PROVENTIL HFA,VENTOLIN HFA) 90 mcg/actuation inhaler Inhale 2 puffs every 6 (six) hours as needed for wheezing. Therapy completed 10/08/2019 budesonide (PULMICORT) 90 mcg/actuation inhaler Inhale 1 puff 2 (two) times a day. Rinse mouth with water after use. Do not swallow. Therapy completed 08/18/2018 10/08/2019 documented as of this encounter Historical Medications * This list may reflect changes made after this encounter. montelukast (SINGULAIR) 10 mg tablet Take 10 mg by mouth nightly 10/01/2019 02/19/2021 loratadine (CLARITIN) 10 mg tablet Take 10 mg by mouth daily 10/01/2019 02/19/2021 Qvar RediHaler 80 mcg/actuation inhaler 07/25/2019 12/13/2019 added in this encounter Care Teams Stone Lathe Operator Relationship Specialty Start Date End Date Michael Sherman MD [address] [place] [address] PCP - General 01/28/17 documented as of this encounter
--- OUTSIDE RECORDS SUMMARY | 2024-08-24 04:36 | XMS_ITS | Encounter Summary ---
Author Organization [facility] Facility Care Team Providers Care Umbrella Tipper Name Role Phone Jason Whyte MD Primary Care Provider [phone] Encounter Details Date Type Department Care Team (Late st Contact Info) Description 07/30/2015 - 07/30/2015 11:59 PM ROD CUP FILLER Hospital Encounter [facility] Corina Martinez Other disorders of pituitary gland (CMS/HCC) Social History Tobacco Use Types Packs/Day Years Used Date Smoking Tobacco: Never Alcohol Use Standard Drinks/Week Comments Yes 0 (1 standard drink = 0.6 oz pur e alcohol) Comments Unknown Sex and Gender Information Value Date Recorded Sex Assigned at Not on file Legal Sex Female 11:00 AM ROD CUP FILLER Gender Identity Not on file Sexual Orientation Not on file documented as of this encounter Plan of Treatment Not on file documented as of this encounter Procedures Procedure Name Priority Date/Time Associated Diagnosis Comments OUTSIDE NEURO CT MR REFERENCE Routine 09/14/2015 6:14 PM ROD CUP FILLER OUTSIDE NEURO CT MR REFERENCE Routine 09/14/2015 6:14 PM ROD CUP FILLER OUTSIDE NEURO CT MR REFERENCE Routine 09/14/2015 6:14 PM ROD CUP FILLER BLOOD HEMOGLOBIN A1C Routine 07/30/2015 11:07 AM ROD CUP FILLER DISCHARGE LABORATORY CUMULATIVE REPORT 07/30/2015 CLINICAL IMAGE Routine 12/11/2014 12:00 AM CDT CLINICAL IMAGE Routine 09/11/2012 9:48 AM ROD CUP FILLER documented in this encounter Results * OUTSIDE NEURO CT MR REFERENCE (09/14/2015 6:14 PM ROD CUP FILLER) Anatomical Region Laterality Modality N/A Computed Tomogra phy 09/14/2015 6:14 PM ROD CUP FILLER Narrative 09/14/2015 8:07 PM ROD CUP FILLER PADMA WYATT M.D. FINAL REPORT ACC# ??Date Time ??Exam [id number] Sep 14, 2015 18:14:00 [id number] [facility] Neuro Reference [id number] Sep 14, 2015 18:14:00 [id number] [facility] Neuro Reference [id number] Sep 14, 2015 18:14:00 [id number] [facility] Neuro Reference [id number] Sep 14, 2015 18:14:00 [id number] [facility] Neuro Reference EXAMINATION: ?Images For Reference Purposes Only IMPRESSION: ?These images have been uploaded for Reference purposes only. ??There will be no separate report generated by a [facility] Radiologist. Requested By: Dictated By: ?? PADMA WYATT M.D. ??on Sep 14 2015 ??8:07P This document has been electronically signed by: PADMA WYATT M.D. on Sep 14 2015 ??8:07P [id number] Procedure Note Provider, MD Marisabel - 12/15/2016 PADMA WYATT M.D. FINAL REPORT ACC# Date Time Exam [id number] Sep 14, 2015 18:14:00 [id number] [facility] Neuro Reference [id number] Sep 14, 2015 18:14:00 [id number] [facility] Neuro Reference [id number] Sep 14, 2015 18:14:00 [id number] [facility] Neuro Reference [id number] Sep 14, 2015 18:14:00 [id number] [facility] Neuro Reference EXAMINATION: Images For Reference Purposes Only IMPRESSION: These images have been uploaded for Reference purposes only. There will be no separate report generated by a [facility] Radiologist. Requested By: Dictated By: PADMA WYATT M.D. on Sep 14 2015 8:07P This document has been electronically signed by: PADMA WYATT M.D. on Sep 14 2015 8:07P [id number] us Historical Provider MD HUSSEIN CT PROCEDURES Final R esult * OUTSIDE NEURO CT MR REFERENCE (09/14/2015 6:14 PM ROD CUP FILLER) Anatomical Region Laterality Modality N/A Computed Tomogra phy 09/14/2015 6:14 PM ROD CUP FILLER Narrative 09/14/2015 8:07 PM ROD CUP FILLER PADMA WYATT M.D. FINAL REPORT ACC# ??Date Time ??Exam [id number] Sep 14, 2015 18:14:00 [id number] [facility] Neuro Reference [id number] Sep 14, 2015 18:14:00 [id number] [facility] Neuro Reference [id number] Sep 14, 2015 18:14:00 [id number] [facility] Neuro Reference [id number] Sep 14, 2015 18:14:00 [id number] [facility] Neuro Reference EXAMINATION: ?Images For Reference Purposes Only IMPRESSION: ?These images have been uploaded for Reference purposes only. ??There will be no separate report generated by a [facility] Radiologist. Requested By: Dictated By: ?? PADMA WYATT M.D. ??on Sep 14 2015 ??8:07P This document has been electronically signed by: PADMA WYATT M.D. on Sep 14 2015 ??8:07P [id number] Procedure Note Provider, MD Marisabel - 12/15/2016 PADMA WYATT M.D. FINAL REPORT ACC# Date Time Exam [id number] Sep 14, 2015 18:14:00 [id number] [facility] Neuro Reference [id number] Sep 14, 2015 18:14:00 [id number] [facility] Neuro Reference [id number] Sep 14, 2015 18:14:00 [id number] [facility] Neuro Reference [id number] Sep 14, 2015 18:14:00 [id number] [facility] Neuro Reference EXAMINATION: Images For Reference Purposes Only IMPRESSION: These images have been uploaded for Reference purposes only. There will be no separate report generated by a [facility] Radiologist. Requested By: Dictated By: PADMA WYATT M.D. on Sep 14 2015 8:07P This document has been electronically signed by: PADMA WYATT M.D. on Sep 14 2015 8:07P [id number] us Historical Provider MD HUSSEIN CT PROCEDURES Final R esult * OUTSIDE NEURO CT MR REFERENCE (09/14/2015 6:14 PM ROD CUP FILLER) Anatomical Region Laterality Modality N/A Computed Tomogra phy 09/14/2015 6:14 PM ROD CUP FILLER Narrative 09/14/2015 8:07 PM ROD CUP FILLER PADMA WYATT M.D. FINAL REPORT ACC# ??Date Time ??Exam [id number] Sep 14, 2015 18:14:00 [id number] [facility] Neuro Reference [id number] Sep 14, 2015 18:14:00 [id number] [facility] Neuro Reference [id number] Sep 14, 2015 18:14:00 [id number] [facility] Neuro Reference [id number] Sep 14, 2015 18:14:00 [id number] [facility] Neuro Reference EXAMINATION: ?Images For Reference Purposes Only IMPRESSION: ?These images have been uploaded for Reference purposes only. ??There will be no separate report generated by a [facility] Radiologist. Requested By: Dictated By: ?? PADMA WYATT M.D. ??on Sep 14 2015 ??8:07P This document has been electronically signed by: PADMA WYATT M.D. on Sep 14 2015 ??8:07P [id number] Procedure Note Provider, MD Marisabel - 12/15/2016 PADMA WYATT M.D. FINAL REPORT ACC# Date Time Exam [id number] Sep 14, 2015 18:14:00 [id number] [facility] Neuro Reference [id number] Sep 14, 2015 18:14:00 [id number] [facility] Neuro Reference [id number] Sep 14, 2015 18:14:00 [id number] [facility] Neuro Reference [id number] Sep 14, 2015 18:14:00 [id number] [facility] Neuro Reference EXAMINATION: Images For Reference Purposes Only IMPRESSION: These images have been uploaded for Reference purposes only. There will be no separate report generated by a [facility] Radiologist. Requested By: Dictated By: PADMA WYATT M.D. on Sep 14 2015 8:07P This document has been electronically signed by: PADMA WYATT M.D. on Sep 14 2015 8:07P [id number] Historical Provider IMG CT PROCEDURES Final R esult * Blood hemoglobin A1C (07/30/2015 11:07 AM ROD CUP FILLER) Hgb A1C 5.9 4.0 - 6.0 % HISTORICAL RESULTS Estimated average glucose 123 mg/dl HISTORICAL RESULTS Comment: The ADA recommends reporting an estimated Average Glucose (eAG) with all Hemoglobin A1c results using the equation derived from a study of 507 normal and diabetic adults. ??Minority populations were underrepresented and children were not included. ??(Diabetes Care 31:9233-7106, 2008). ??The eAG is not equivalent to a fasting glucose. Blood specimen (specimen) 07/30/2015 11:07 AM ROD CUP FILLER Corina Hennessy LAB BLOOD ORDERABLES Final Resul t HISTORICAL RESULTS * DISCHARGE LABORATORY CUMULATIVE REPORT (07/30/2015) Narrative 07/30/2015 Ordered by an unspecified provider. Historical Provider LAB BLOOD ORDERABLES Krystyna l Result * Clinical Image (12/11/2014 12:00 AM CDT) 12/11/2014 Historical Provider NURSING COMMUNICATION Fin al Result HISTORICAL RESULTS * Clinical Image (09/11/2012 9:48 AM ROD CUP FILLER) 09/11/2012 9:48 AM ROD CUP FILLER Historical Provider NURSING COMMUNICATION Fin al Result HISTORICAL RESULTS documented in this encounter Visit Diagnoses Diagnosis Other disorders of pituitary gland (HCC) documented in this encounter Care Teams Umbrella Tipper Relationship Specialty Start Date End Date Jason Whyte MD PCP - General 03/14/15 10/25/16 documented as of this encounter
--- OUTSIDE RECORDS SUMMARY | 2024-08-24 04:36 | XMS_ITS | Encounter Summary ---
Author Organization [facility] Facility Care Team Providers Care Manager Manufacturing Name Role Phone Jason Whyte MD Primary Care Provider [phone] Encounter Details Date Type Department Care Team (Late st Contact Info) Description 09/16/2016 11:53 AM MOUNTING MACHINE OPERATOR - 09/16/2016 11:59 PM [facility] Hospital Encounter [facility] CLINKush Ramirez MD [facility] [address] [address] Benign neoplasm of pituitary gland (CMS/HCC); Other disorders of pituitary gland (CMS/HCC) Social History Tobacco Use Types Packs/Day Years Used Date Smoking Tobacco: Never Alcohol Use Standard Drinks/Week Comments No 0 (1 standard drink = 0.6 oz pur e alcohol) Comments Unknown Sex and Gender Information Value Date Recorded Sex Assigned at Not on file Legal Sex Female 11:00 AM MOUNTING MACHINE OPERATOR Gender Identity Not on file [...] as needed 0 Inhaler 0 12/11/2015 1 documented as of this encounter Plan of Treatment Not on file documented as of this encounter Procedures Procedure Name Priority Date/Time Associated Diagnosis Comments MRI BRAIN W WO CONTRAST Routine 09/16/2016 1:36 PM MOUNTING MACHINE OPERATOR BLOOD CREATININE, POINT OF CARE Routine 09/16/2016 12:39 PM MOUNTING MACHINE OPERATOR documented in this encounter Results * MRI Brain W WO Contrast (09/16/2016 1:36 PM MOUNTING MACHINE OPERATOR) Anatomical Region Laterality Modality Head and Neck N/A Magnetic Resonan ce 09/16/2016 1:36 PM MOUNTING MACHINE OPERATOR Narrative 09/16/2016 3:54 PM MOUNTING MACHINE OPERATOR GLENDA BELLA M.D. MAGGIE HAMM M.D. FINAL REPORT The radiology attending physician has personally reviewed this study, and has reviewed and/or edited this written report and agrees with it. ACC# ??Date Time ??Exam [id number] Sep 16, 2016 13:36:00 [id number] MRI Brain wo&with contrast EXAMINATION: ?? Magnetic resonance imaging (MRI) of the brain and brainstem without and with contrast HISTORY: 56-year-old woman with pituitary adenoma. TECHNIQUE: Multiplanar multi-weighted MRI of the brain and brainstem was performed without and with intravenous contrast using the pituitary protocol. This included acquisitions showing dynamic contrast enhancement of the pituitary in the coronal plane. Contrast information: 10 mL Dotarem COMPARISON: 07/11/2015 and 08/10/2012 FINDINGS: The morphology and outline of the pituitary gland remains unchanged since prior examinations dating back to 2011. There is a slightly exaggerated margin of the pituitary gland. The infundibulum remains midline. There is no compression of the optic chiasm. There is uniform enhancement of the pituitary gland after contrast without focal or hypoenhancing lesion. The scalp and calvarium are normal. The superior sagittal sinus demonstrates normal venous flow. The corpus callosum is normal in shape and signal intensity. The posterior fossa is unremarkable. The brainstem and craniocervical junction are unremarkable. The ventricles are normal in size and position without evidence of hydrocephalus. The paranasal sinuses are normal. The visualized portions of the mastoids are unremarkable. Normal flow voids are demonstrated in the carotid arteries and basilar artery. IMPRESSION: ?? Stable appearance of a slightly prominent but uniformly enhancing pituitary gland since 2011. In view of detention stability and uniform enhancement, this appearance may reflect an anatomic variation rather than pituitary macroadenoma. Requested By: Dictated By: ?? MAGGIE HAMM M.D. ??on Sep ??2 2016 ??1:58P This document has been electronically signed by: GLENDA BELLA M.D. on Sep ??2 2016 ??3:54P [id number] Procedure Note Provider, MD Marisabel - 12/20/2016 GLENDA BELLA M.D. MAGGIE HAMM M.D. FINAL REPORT The radiology attending physician has personally reviewed this study, and has reviewed and/or edited this written report and agrees with it. ACC# Date Time Exam [id number] Sep 16, 2016 13:36:00 [id number] MRI Brain wo&with contrast EXAMINATION: Magnetic resonance imaging (MRI) of the brain and brainstem without and with contrast HISTORY: 56-year-old woman with pituitary adenoma. TECHNIQUE: Multiplanar multi-weighted MRI of the brain and brainstem was performed without and with intravenous contrast using the pituitary protocol. This included acquisitions showing dynamic contrast enhancement of the pituitary in the coronal plane. Contrast information: 10 mL Dotarem COMPARISON: 07/11/2015 and 08/10/2012 FINDINGS: The morphology and outline of the pituitary gland remains unchanged since prior examinations dating back to 2011. There is a slightly exaggerated margin of the pituitary gland. The infundibulum remains midline. There is no compression of the optic chiasm. There is uniform enhancement of the pituitary gland after contrast without focal or hypoenhancing lesion. The scalp and calvarium are normal. The superior sagittal sinus demonstrates normal venous flow. The corpus callosum is normal in shape and signal intensity. The posterior fossa is unremarkable. The brainstem and craniocervical junction are unremarkable. The ventricles are normal in size and position without evidence of hydrocephalus. The paranasal sinuses are normal. The visualized portions of the mastoids are unremarkable. Normal flow voids are demonstrated in the carotid arteries and basilar artery. IMPRESSION: Stable appearance of a slightly prominent but uniformly enhancing pituitary gland since 2011. In view of supervisor long goods stability and uniform enhancement, this appearance may reflect an anatomic variation rather than pituitary macroadenoma. Requested By: Dictated By: MAGGIE HAMM M.D. on Sep 16 2016 1:58P This document has been electronically signed by: GLENDA BELLA M.D. on Sep 16 2016 3:54P [id number] Historical Provider MD HUSSEIN MRI PROCEDURES Final Result * Blood creatinine, point of care (09/16/2016 12:39 PM MOUNTING MACHINE OPERATOR) Creatinine, POC, bld 0.9 0.6 - 1.1 mg/dl CDR HISTORICAL RESULTS Blood specimen (specimen) 09/16/2016 12:39 PM MOUNTING MACHINE OPERATOR Kush Walls MD LAB BLOOD ORDERABLES Final Result CDR HISTORICAL RESULTS documented in this encounter Visit Diagnoses Diagnosis Benign neoplasm of pituitary gland (HCC) Benign neoplasm of pituitary gland and craniopharyngeal duct (pouch) Other disorders of pituitary gland (HCC) documented in this encounter Care Teams Manager Manufacturing Relationship Specialty Start Date End Date Jason Whyte MD PCP - General 03/14/15 10/25/16 documented as of this encounter
--- OUTSIDE RECORDS SUMMARY | 2024-08-24 04:36 | XMS_ITS | Encounter Summary ---
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 Social History Tobacco Use Types Packs/Day Years Used Date Smoking Tobacco: Never Alcohol Use Standard Drinks/Week Comments Yes 0 (1 standard drink = 0.6 oz pur e alcohol) Comments Unknown Sex and Gender Information Value Date Recorded Sex Assigned at Not on file Legal Sex Female 11:00 AM RELAY SHOP SUPERVISOR Gender Identity Not on file Sexual Orientation Not on file documented as of this encounter Plan of Treatment Not on file documented as of this encounter Procedures Procedure Name Priority Date/Time Associated Diagnosis Comments CT SOFT TISSUE NECK W CONTRAST Routine 09/26/2015 10:29 AM RELAY SHOP SUPERVISOR documented in this encounter Results * CT Neck Soft Tissue W Contrast (09/26/2015 10:29 AM RELAY SHOP SUPERVISOR) Anatomical Region Laterality Modality Head and Neck N/A Computed Tomogra phy 09/26/2015 10:2 9 AM RELAY SHOP SUPERVISOR Narrative 09/26/2015 9:32 PM RELAY SHOP SUPERVISOR JOSE MICHELLE M.D. SHAUN SAENZ M.D. FINAL REPORT The radiology attending physician has personally reviewed this study, and has reviewed and/or edited this written report and agrees with it. ACC# ??Date Time ??Exam [id number] Sep 26, 2015 10:29:[id number] Neck SoftTissue w cont EXAMINATION: ?? CT of the neck with contrast HISTORY: Rule out base of tongue mass TECHNIQUE: CT of the neck was performed according to standard protocol after the uneventful administration of intravenous contrast. Contrast information: 94 mL Optiray-350 COMPARISON: Correlation is made with brain MRI 07/11/2015 FINDINGS: There is no CT evidence of a base of tongue mass. The left submandibular gland is atrophic or absent. Review of the topogram demonstrates no abnormality. Scattered subcentimeter lymph nodes are seen in the neck. None are pathologically enlarged or abnormally enhancing. The muscles of the neck are normal. Vessels of the neck demonstrate normal course and caliber. Fascial planes are preserved and the deep spaces of the neck are normal. The visualized airway is widely patent. The base of the skull and the temporal bones are normal. Limited views of the brain including the cerebellum and brainstem are otherwise normal. There is redemonstration of a sellar mass, which measures approximately 1.0 cm in diameter. The limited view of the Mohler of [place] is unremarkable. The visualized portions of the orbits are normal. There are no suspicious lytic or blastic osseous lesion. Mild degenerative changes are noted in the cervical spine, with disc height loss at C5-C6 and C6-C7. Lung apices demonstrate right upper lobe post-surgical change. No suspicious nodules or masses. IMPRESSION: ?? No CT evidence of a base of tongue mass. No cervical lymphadenopathy. Requested By: MADY GARCIA M.D. Dictated By: ?? SHAUN SAENZ M.D. ??on Sep 26 2015 11:22A This document has been electronically signed by: JOSE MICHELLE M.D. on Sep 26 2015 ??9:31P [id number] Procedure Note Provider, MD Marisabel - 12/15/2016 Ana Laura MO M.D. FINAL REPORT The radiology attending physician has personally reviewed this study, and has reviewed and/or edited this written report and agrees with it. [facility]# Date Time Exam [id number] Sep 26, 2015 10:29:[id number] Neck SoftTissue w cont EXAMINATION: CT of the neck with contrast HISTORY: Rule out base of tongue mass TECHNIQUE: CT of the neck was performed according to standard protocol after the uneventful administration of intravenous contrast. Contrast information: 94 mL Optiray-350 COMPARISON: Correlation is made with brain MRI 07/11/2015 FINDINGS: There is no CT evidence of a base of tongue mass. The left submandibular gland is atrophic or absent. Review of the topogram demonstrates no abnormality. Scattered subcentimeter lymph nodes are seen in the neck. None are pathologically enlarged or abnormally enhancing. The muscles of the neck are normal. Vessels of the neck demonstrate normal course and caliber. Fascial planes are preserved and the deep spaces of the neck are normal. The visualized airway is widely patent. The base of the skull and the temporal bones are normal. Limited views of the brain including the cerebellum and brainstem are otherwise normal. There is redemonstration of a sellar mass, which measures approximately 1.0 cm in diameter. The limited view of the Mohler of [place] is unremarkable. The visualized portions of the orbits are normal. There are no suspicious lytic or blastic osseous lesion. Mild degenerative changes are noted in the cervical spine, with disc height loss at C5-C6 and C6-C7. Lung apices demonstrate right upper lobe post-surgical change. No suspicious nodules or masses. IMPRESSION: No CT evidence of a base of tongue mass. No cervical lymphadenopathy. Requested By: MADY GARCIA M.D. Dictated By: SHAUN SAENZ M.D. on Sep 26 2015 11:22A This document has been electronically signed by: JOSE MICHELLE M.D. 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
--- OUTSIDE RECORDS SUMMARY | 2024-08-24 04:36 | XMS_ITS | Encounter Summary ---
Author Organization [facility] Address [address] [address] Care Team Providers Care Wet Roaster Name Role Phone Michael Sherman MD Primary Care Prov ider Reason for Visit * Cardiology (Routine) - Canceled Specialty Diagnoses / Procedures Referred By Contac t Referred To Contact Diagnoses Palpitations Procedures DEVICE CHECK - REMOTE Neil Bates MD Phone: tel: fax: Referral ID Status Reason Start Date Expiration Date V isits Requested Visits Authorized [id number] Canceled 11/08/2017 05/07/2018 1 1 Encounter Details Date Type Department Care Team (Latest Contact Info) Description 11/03/2017 8:00 AM CDT Ancillary Procedure [facility] Cardiology [facility] [address] [id number] Palpitations; Status post placement of implantable loop recorder Social History Tobacco Use Types Packs/Day Years Used Date Smoking Tobacco: Never Alcohol Use Standard Drinks/Week Comments No 0 (1 standard drink = 0.6 oz pur e alcohol) Comments Unknown Sex and Gender Information Value Date Recorded Sex Assigned at Not on file Legal Sex Female 11:00 AM PRECISION FARMING COORDINATOR Gender Identity Not on file Sexual Orientation Not on file documented as of this encounter Plan of Treatment Pending Results Name Type Priority Associated Diagnoses Date /Time DEVICE CHECK - REMOTE Cardiac Services Routine Palpitations 11/08/2017 4:43 PM CDT documented as of this encounter Visit Diagnoses Diagnosis Palpitations Status post placement of implantable loop recorder documented in this encounter Care Teams Wet Roaster Relationship Specialty Start Date End Date Michael Sherman MD [address] [place] [address] PCP - General 01/28/17 documented as of this encounter
--- OUTSIDE RECORDS SUMMARY | 2024-08-24 04:36 | XMS_ITS | Encounter Summary ---
Author Organization [facility] Healthcare Address [address] [place] [address] Care Team Providers Care Computer Game Tester Name Role Phone Michael Sherman MD Primary Care Prov ider Reason for Visit * Reason Comments Chest Pain Back Pain Encounter Details Date Type Department Care Team (Late st Contact Info) Description 08/17/2018 11:24 PM PORTRAIT ARTIST - 08/18/2018 1:32 PM PORTRAIT ARTIST Emergency [facility] Emergency Department [address] [place] [address] Marie Mahan MD [address] [place] [address] Jay Luciano MD [address] [place] [address] Chest pain of uncertain etiology (Primary Dx) Discharge Disposition: Discharge to home or self care Social History Tobacco Use Types Packs/Day Years Used Date Smoking Tobacco: Never Alcohol Use Standard Drinks/Week Comments No 0 (1 standard drink = 0.6 oz pur e alcohol) Comments No Sex and Gender Information Value Date Recorded Sex Assigned at Not on file Legal Sex Female 11:00 AM PORTRAIT ARTIST Gender Identity Not on file Sexual Orientation Not on file documented as of this encounter Last Filed Vital Signs Vital Sign Reading Time Taken Comments Blood Pressure 100/70 08/18/2018 1:00 PM PORTRAIT ARTIST Pulse 74 08/18/2018 1:00 PM PORTRAIT ARTIST Temperature 36.8 ??C (98.2 ??F) 08/18/2018 4:50 AM CS T Respiratory Rate 19 08/18/2018 1:00 PM PORTRAIT ARTIST Oxygen Saturation 99% 08/18/2018 1:00 PM PORTRAIT ARTIST Inhaled Oxygen Concentration - - Weight 61.2 kg (135 lb) 08/17/2018 8:02 PM PORTRAIT ARTIST Height 180.3 cm (5' 11 ) 08/17/2018 8:02 PM PORTRAIT ARTIST Body Mass Index 18.83 08/17/2018 8:02 PM PORTRAIT ARTIST documented in this encounter Discharge Instructions * Discharge Instructions* Deepti Gonzales NP - 08/18/2018 12:43 PM PORTRAIT ARTIST As discussed, your work up here is normal. Plan to attend your scheduled appointment with your PCP next week. Return to emergency department with persistent chest pain, dizziness or shortness of breath. RAIT ARTIST * Attachments The following attachments cannot be sent through Care Everywhere. * Chest Pain, Uncertain Cause (Norwegian) documented in this encounter Medications at Time of Discharge aspirin (ASPIR-81) 81 mg tablet take 1 tablet by oral route every day 0 0 12/11/2015 aclidinium (TUDORZA) 400 mcg/actuation inhaler Inhale 1 puff 2 (two) times a day. 0 albuterol HFA (PROVENTIL HFA,VENTOLIN HFA) 90 mcg/actuation inhaler Inhale 2 puffs every 6 (six) hours as needed for wheezing. 0 albuterol sulfate (PROAIR RESPICLICK) 90 mcg/actuation aerosol powdr breath activated inhale 2 puff by inhalation route every 4 - 6 hours as needed 0 Inhaler 0 12/11/2015 1 budesonide (PULMICORT) 90 mcg/actuation inhaler Inhale 1 puff 2 (two) times a day. Rinse mouth with water after use. Do not swallow. 1 Inhaler 08/18/2018 0 documented as of this encounter Ordered Prescriptions Prescription Sig Dispense Quantity Refills Last Filled Start Date End Date budesonide (PULMICORT) 90 mcg/actuation inhaler Inhale 1 puff 2 (two) times a day. Rinse mouth with water after use. Do not swallow. 1 Inhaler 08/18/2018 10/08/2019 documented in this encounter Discharge Disposition Disposition Code Departure Means Destination Discharge to home or self care documented in this encounter ED Notes * Karolyn Pope RN - 08/18/2018 11:07 AM CST Bed: OBS-09 Expected date: Expected time: Means of arrival: Comments: Hold for pt levy lovell in cdl Karolyn Pope RN 08/18/18 1107 RAIT ARTIST * Tino Cooper MD - 08/17/2018 11:45 PM CST HPI Chief Complaint Patient presents with ??? Chest Pain ??? Back Pain 58 y/o F w/ h/o anxiety, migraine, pituitary adenoma who p/w chest pain. Pt states the pain began at 1700. She describes it as a burning sensation. It rated 10/10. It was associated with L arm tingling. Associated weakness and confusion. No provoking or alleviating factors. The pain resolved after approximately 10 minutes. The pt then awoke with R shoulder pain this morning and shortness of air. The shoulder pain has persisted throughout the day but her shortness of air has subsided. The pt hasa loop recorder device for similar events that she had in the past but has not had it interrogated in two years. History provided by: Patient Patient History Patient Active Problem List Diagnosis Date Noted ??? Menopause present 07/18/2017 Priority: High ??? Non-small cell carcinoma of lung (CMS/HCC) 01/23/2010 Priority: High ??? Status post placement of implantable loop recorder 02/09/2018 ??? Moderate persistent asthma 04/07/2017 Class: Chronic ??? Dizzy spells 02/02/2016 Class: Chronic ??? Chronic migraine without aura 10/01/2015 Class: Temporary ??? Partial seizure with impaired consciousness (CMS/HCC) 10/01/2015 Class: Temporary ??? Pituitary adenoma (CMS/HCC) 09/12/2015 Class: Chronic ??? Numbness of tongue 09/09/2015 Class: Chronic ??? Migraine without aura and responsive to treatment 08/20/2015 Class: Chronic ??? Drusen of macula 07/31/2015 Class: Chronic ??? Dim vision 07/31/2015 Class: Chronic ??? Vitreous syneresis 07/31/2015 Class: Chronic ??? Lenticular sclerosis 07/31/2015 Class: Chronic ??? Pre-syncope 06/25/2015 Class: Chronic ??? Pituitary gland enlarged (CMS/HCC) 06/25/2015 Class: Chronic ??? Dizziness 05/14/2015 Class: Temporary ??? Anxiety 05/14/2015 Class: Temporary ??? History of malignant neoplasm 05/14/2015 Class: Temporary ??? Consciousness and/or awareness finding 10/10/2014 Class: Temporary ??? Obstructive sleep apnea syndrome 05/01/2013 Class: Chronic ??? Seizure (CMS/HCC) 10/31/2012 Class: Chronic ??? Headache 10/31/2012 Class: Chronic ??? Mitral valve disease 04/12/2012 Class: Chronic ??? Malignant neoplasm of lower respiratory tract (CMS/HCC) 01/15/2010 Class: Chronic ??? Dysphonia 01/15/2010 Class: Chronic Past Medical History: Diagnosis Date ??? Asthma Asthma ??? Asthma Asthma; Comments: [facility] 10/10/2014 - ??? Cancer of lung (CMS/HCC) Cancer, lung ??? Cerebrovascular accident (CVA) (CMS/HCC) Stroke ??? Depression Depression ??? HX OTHER MEDICAL NSCLC 1a- adenocarcinoma [...] right upper lobectomy with en bloc ??? Seizure disorder (CMS/HCC) Seizure disorder Past Surgical History: Procedure Laterality Date ??? SECTION section ??? LUMBAR PUNCTURE WO INJECTION, DIAGNOSTIC N/A 01/12/2013 ??? OTHER SURGICAL HISTORY VATS wtih R lobectomy ??? TONSILLECTOMY Tonsillectomy Family History Problem Relation Age of Onset ??? Prostate cancer Father Cancer, prostate; Cause of : Cancer, prostate/Prostate Cancer - (Added by TW Conv) ??? Liver cancer Father Cancer, liver; Cause of : Cancer, liver ??? Diabetes Father Diabetes mellitus; /Diabetes Mellitus - (Added by TW Conv) ??? Lung cancer Father Family history of lung cancer - (Added by TW Conv) ??? Diabetes Other Family history of Diabetes [...] arthritis; ??? Other Mother chronic bronchitis; ??? Lung cancer Maternal Grandfather Family history of lung cancer - Relation: Grandfather (Added by TW Conv) ??? Emphysema Maternal Grandfather Emphysema, compensatory - Relation: Grandfather (Added by TW Conv) ??? Heart disease Maternal Grandfather Family history of cardiac disorder - Relation: Grandfather (Added by TW Conv) ??? Heart disease Other Family history of cardiac disorder - (Added by TW Conv) ??? Hypertension Other Family history of hypertension - Relation: Grandmother (Added by TW Conv) ??? Heart failure Maternal Great-Grandfather Family history of congestive heart failure - (Added by TW Conv) Social History Substance Use Topics ??? Smoking status: Never Smoker ??? Smokeless tobacco: Not on file ??? Alcohol use No Social History Social History Narrative ??? No narrative on file Review of Systems Review of Systems Constitutional: Negative for fever. HENT: Negative for sore throat. Eyes: Positive for visual disturbance. Blurred vision >1 year Respiratory: Positive for cough, chest tightness and shortness of breath. Cardiovascular: Positive for chest pain and palpitations. Gastrointestinal: Positive for abdominal pain. Genitourinary: Negative for dysuria. Musculoskeletal: Positive for back pain. Chronic back pain Skin: Negative for color change and rash. Neurological: Positive for light-headedness. Negative for syncope. All other systems reviewed and are negative. Physical Exam ED Triage Vitals [08/17/182001] Temp Pulse Resp BP SpO2 36.2 ??C (97.2 ??F) 70 18 112/63 97 % Temp src Heart Rate Source Patient Position BP Location FiO2 (%) Oral -- -- -- -- Physical Exam Constitutional: She appears well-developed and well-nourished. No distress. HENT: Head: Normocephalic and atraumatic. Eyes: Conjunctivae are normal. Neck: Neck supple. Cardiovascular: Normal rate and regular rhythm. No murmur heard. Pulmonary/Chest: Effort normal and breath sounds normal. No respiratory distress. Abdominal: Soft. There is no tenderness. Musculoskeletal: She exhibits no edema. Neurological: She is alert. Skin: Skin is warm and dry. Psychiatric: She has a normal mood and affect. Nursing note and vitals reviewed. MDM MDM 58 y/o F who p/w chest pain x1d. Described as a burning substernal pain. Associated shortness of breath, L arm tingling, and R shoulder pain. VSS. Physical exam unremarkable. Differential: ACS vs Musculoskeletal vs Anxiety Plan: Troponin and ECG are wnl. CXR is negative. BMP and CBC are reassuring. Will plan to repeat troponin and schedule morning stress test. Dispo: Likely discharge in AM Attending Summary of Care No diagnosis found. Tino Cooper MD Resident 08/18/18 0918 Cosigned by Marie Mahan MD at 08/20/2018 1:25 AM PORTRAIT ARTIST RAIT ARTIST RAIT ARTIST Associated attestation - Marie Mahan MD - 08/20/2018 1:25 AM PORTRAIT ARTIST I have seen and examined this patient, I have discussed/reviewed the history, physical exam and assessment with the resident. We are in agreement with treatment plan except as I have noted, and I agree with their documentation except as noted. Yane Fagan is a 58 year-old female with past medical history significant for anxiety and pituitary adenoma who presents with a complaint of chest pain. She states that the pain has resolved at present, but it was previously 10/10 in severity and At the right chest with radiation to the right shoulder. She states that she had associated dyspnea. She denies any lightheadedness or syncope associated with this. She denies any palpitations. She does have a loop recorder in place, though she hasnot had it interrogated recently. She denies any associated weakness or confusion. On exam, the patient is laying comfortably in no acute distress. Cardiac exam with regular rate andrhythm, clear s1/s2, no murmurs/rubs/gallops. Lungs clear to auscultation bilaterally. Abdomen is soft, non-tender, non-distended. No lower extremity pain or edema. MDM: Missy Fagan is a 58 year-old female who presents with a complaint of chest pain and dyspnea. She is a poor historian, and she gives multiple different stories for her symptoms and descriptions of her pain. Her overall exam is benign. Initial troponin negative. However, given her age and risk factors, elevated HEART score, will admit to observation for stress testing. Differential also includes costochondritis, viral infection, anxiety, and musculoskeletal chest pain. Lower concern forpneumonia (no infiltrate on chest x-ray, fevers, or leukocytosis), pneumothorax, pulmonary embolus (no leg pain or swelling, no pleuritic pain, no risk factors), or aortic dissection (no widened mediastinum, pain is intermittent with no radiation to the back). * Mingo Centeno RN - 08/17/2018 11:24 PM CST Bed: [facility] Expected date: Expected time: Means of arrival: Car Comments: Mingo Centeno RN 08/17/18 2324 RAIT ARTIST * Beverly Neville RN - 08/17/2018 8:10 PM CST Pt reports she was standing outside when she developed sudden onset of midsternal to left sided cp,with associated sob, dizziness, nausea, and diaphoresis. Pt reports family with her said her skin turned white. Pt reports mid to right sided cp today with inspiration. VSS. RAIT ARTIST documented in this encounter Miscellaneous Notes * ED Observation Provider Note - Deepti Gonzales NP - 08/18/2018 12:39 PM PORTRAIT ARTIST Observation Course [employer] to bedside to interrogate oop recorder no recorded events of arrhythmias. Also, of note, rep showed patient triggered recordings which were unremarkable. Cardiac stress negative for myocardial ischemia. Patient updated on results. Patient denies chest pain or palpitations at this time. VSS. Patient will f/u as scheduled next week. Physical Exam Constitutional: She is oriented to person, place, and time. She appears well- developed and well-nourished. No distress. HENT: Head: Normocephalic and atraumatic. Mouth/Throat: Oropharynx is clear and moist. Eyes: Conjunctivae and EOM are normal. Neck: Normal range of motion. Neck supple. Cardiovascular: Normal rate, regular rhythm and normal heart sounds. No murmur heard. Pulmonary/Chest: Effort normal and breath sounds normal. No respiratory distress. She has no wheezes. Abdominal: Soft. There is no tenderness. Musculoskeletal: She exhibits no edema. Neurological: She is alert and oriented to person, place, and time. Skin: Skin is warm and dry. Psychiatric: She has a normal mood and affect. Nursing note and vitals reviewed. RAIT ARTIST * ED Observation Provider Note - Deepti Gonzales NP - 08/18/2018 11:24 AM PORTRAIT ARTIST Patient admitted to obs overnight for chest pain rule out. Patient has returned from stress and denies chest pain at this time. Stress negative and patient tolerating PO at this time. Plan to discharge with f/u. RAIT ARTIST * ED Re-evaluation Note - Martínez Jackman MD - 08/18/2018 7:00 AM CST ED Re-evaluation TRANSITION OF CARE: I, Martínez Jackman MD, am taking signout from Dr. Cooper (Resident) under supervision of Dr. Luciano (Attending). I have reviewed all pertinent vital signs, allergies, and history available in the chart. Summary: 58 y.o. female With h/o anxiety, migraine, pituitary adenoma p/w chest pain at 1700 on with associated L arm tingling. Trops negative x2. Chest pain resolved after 10 minutes, noted tohave R shoulder pain this AM. Wanted loop recorder interrogated. CXR negative. Plan for stress testthis AM. Pending: Stress Test Dispo: Home Martínez Jackman MD Resident 08/18/18 5365 RAIT ARTIST * ED Observation Provider Note - Roxana Romo NP - 08/18/2018 4:46 AM CST ED Observation Admission Note The patient has been admitted to observation for cardiac stress test and chest pain, rule out. The patient's condition is stable. I have reviewed all available laboratory and diagnostic test results from the patient's current emergency medical record. The patient's working diagnosis upon admission to the observation unit is chest pain r/o . The expected plan for the patient's observation stay comprises serial EKG's, serial exams, telemetry, serial troponins, cardiac stress test and analgesics. The following services have been requested for consultation: None. Disposition criteria: criteria for admission to the hospital include [+] Cardiac stress test, [+] troponin and EKG changes; criteria for discharge from observation include negative cardiac workup, troponin X2 negative and no EKG changes. HPI 58 yo female to ed with chest pain 2 days ago, exertional, resolved. Then yesterday awaken with right lateral back/latearl chest pain not improving, to ed for evaluation. States does not currently follow with cardiology due to insurance changes. Has new pmd appointment on 08/21/2017. Currently statescontinue right lateral back/chest pain with deep breath. Plan for serial trop, telemetry and stresstest this am. Also need interrogation or reading of [employer] loop monitor. Patient History Past Medical History: Diagnosis Date ??? Asthma Asthma ??? Asthma Asthma; Comments: [facility] 10/10/2014 - ??? Cancer of lung (CMS/HCC) Cancer, lung ??? Cerebrovascular accident (CVA) (CMS/HCC) Stroke ??? Depression Depression ??? HX OTHER MEDICAL NSCLC 1a- adenocarcinoma [...] right upper lobectomy with en bloc ??? Seizure disorder (CMS/HCC) Seizure disorder Past Surgical History: Procedure Laterality Date ??? SECTION section ??? LUMBAR PUNCTURE WO INJECTION, DIAGNOSTIC N/A 01/12/2013 ??? OTHER SURGICAL HISTORY VATS wtih R lobectomy ??? TONSILLECTOMY Tonsillectomy Family History Problem Relation Age of Onset ??? Prostate cancer Father Cancer, prostate; Cause of : Cancer, prostate/Prostate Cancer - (Added by TW Conv) ??? Liver cancer Father Cancer, liver; Cause of : Cancer, liver ??? Diabetes Father Diabetes mellitus; /Diabetes Mellitus - (Added by TW Conv) ??? Lung cancer Father Family history of lung cancer - (Added by TW Conv) ??? Diabetes Other Family history of Diabetes [...] arthritis; ??? Other Mother chronic bronchitis; ??? Lung cancer Maternal Grandfather Family history of lung cancer - Relation: Grandfather (Added by TW Conv) ??? Emphysema Maternal Grandfather Emphysema, compensatory - Relation: Grandfather (Added by TW Conv) ??? Heart disease Maternal Grandfather Family history of cardiac disorder - Relation: Grandfather (Added by TW Conv) ??? Heart disease Other Family history of cardiac disorder - (Added by TW Conv) ??? Hypertension Other Family history of hypertension - Relation: Grandmother (Added by TW Conv) ??? Heart failure Maternal Great-Grandfather Family history of congestive heart failure - (Added by TW Conv) Social History Substance Use Topics ??? Smoking status: Never Smoker ??? Smokeless tobacco: Not on file ??? Alcohol use No Review of Systems Review of Systems Constitutional: Negative for chills and fever. HENT: Negative for ear pain and sore throat. Eyes: Negative for pain and visual disturbance. Respiratory: Negative for cough and shortness of breath. Cardiovascular: Positive for chest pain. Negative for palpitations. Gastrointestinal: Negative for abdominal pain and vomiting. Genitourinary: Negative for dysuria and hematuria. Musculoskeletal: Negative for arthralgias and back pain. Skin: Negative for color change and rash. Neurological: Negative for seizures and syncope. All other systems reviewed and are negative. Physical Exam ED Triage Vitals [08/17/182001] Temp Pulse Resp BP SpO2 36.2 ??C (97.2 ??F) 70 18 112/63 97 % Temp src Heart Rate Source Patient Position BP Location FiO2 (%) Oral -- -- -- -- Physical Exam Constitutional: She is oriented to person, place, and time. She appears well- developed and well-nourished. No distress. HENT: Head: Normocephalic and atraumatic. Mouth/Throat: Oropharynx is clear and moist. Eyes: Conjunctivae and EOM are normal. Neck: Normal range of motion. Neck supple. Cardiovascular: Normal rate. Pulmonary/Chest: Effort normal. No respiratory distress. Musculoskeletal: Normal range of motion. Neurological: She is alert and oriented to person, place, and time. No cranial nerve deficit or sensory deficit. She exhibits normal muscle tone. Coordination normal. Skin: Skin is warm and dry. Psychiatric: She has a normal mood and affect. Nursing note and vitals reviewed. RAIT ARTIST * ED Procedure Note - Jassi Tony DO - 08/17/2018 8:16 PM CSTAssociated Order(s): ECG 12-LEAD Procedure ECG 12 lead Date/Time: 08/17/2018 8:16 PM Performed by: JASSI TONY Authorized by: JASSI TONY Rate: ECG rate: 66 ECG rate assessment: normal Rhythm: Rhythm: sinus rhythm ST segments: ST segments: Non-specific T waves: T waves: non-specific Other findings: Other findings: LVH Previous ECG: Previous ECG: Compared to current Date of previous EC11/30/2010 Comparison ECG info: No sig changes Similarity: No change Interpretation: Interpretation: No significant change Recommended Follow-up: Recommended follow up: further workup in the ED Jassi Tony DO 08/17/18 2017 RAIT ARTIST documented in this encounter Plan of Treatment Not on file documented as of this encounter Procedures Procedure Name Priority Date/Time Associated Diagnosis Comments STRESS ECHO EXERCISE W DOPPLER/CF W CONTRAST Routine 08/18/2018 11:01 AM PORTRAIT ARTIST TROPONIN I STAT 08/18/2018 4:27 AM PORTRAIT ARTIST DIFFERENTIAL AUTO STAT 08/17/2018 8: 38 PM PORTRAIT ARTIST CBC WITH AUTO DIFFERENTIAL STAT 08/17/2018 8:38 PM PORTRAIT ARTIST TROPONIN I STAT 08/17/2018 8:38 PM PORTRAIT ARTIST BASIC METABOLIC PANEL STAT 08/17/2018 8:38 PM PORTRAIT ARTIST XR CHEST PA LATERAL 2 VIEWS ED 08/17/2018 8:25 PM PORTRAIT ARTIST ECG 12-LEAD STAT 08/17/2018 8:16 PM PORTRAIT ARTIST documented in this encounter Results * STRESS ECHO EXERCISE W DOPPLER/CF W CONTRAST (08/18/2018 11:01 AM PORTRAIT ARTIST) Anatomical Region Laterality Modality Ultrasound 08/18/2018 9:00 AM PORTRAIT ARTIST Narrative 08/18/2018 11:07 AM PORTRAIT ARTIST Patient name: Yane Fagan Date of test: 08/18/2018 Hospital #: [id number] ?Location: [facility] Interpreted by: Landon Carrington MD Supervisor Engine Assembly: Amy Penn RDCS RN: Karolyn Lebron RN Reason for Test: chest pain Study quality: Technically good Referring Physician: ROXANA ROMO MD Contrast Agent: 1.5 ml Optison Administered, (1.5 ml wasted). LV Global Function: Normal left ventricular systolic function. Baseline Echo Comments: TDS. Normal LV/RV size and systolic function. Mild concentric LVH. Mild LAE. Impaired LV relaxation c/w diastolic dysfunction. Normal aorta. Normal IVC. Doppler/CF Comments: Mild TR, est PASP 35 mmHg; No TS, No PS/PI, No MS, mild MR, No /AR Baseline HR: 62 Baseline BP: 126/66 Conduction Defects: None Resting ECG Comments: SR/Sinus arrhythmia 60s w/ sttwa V1, V2 Medications: asa, albuterol, pulmicort Meds held: none Peak HR: 151 Peak BP: 154/86 Post-Exercise Comments: Compared to baseline, there is marked increase in global systolic function without new segmental wall motion abnormalities. The patient exercised for ??8 min. 16 sec. The patient achieved: 151 bpm ??93 % of MPHR ?METS: 10 Exer. Perf: Good exercise performance. Test terminated: ??Shortness of breath.leg fatigue Stress ECG Comments: ??No ischemic changes rare PAC Impression: Maximal Exercise Stress Echocardiogram, NEGATIVE for myocardial ischemia. Confirmed on ??08/18/2018 - 11:07:22 by Landon Carrington MD By signing this report, the attending ironing worker certifies that he or she has personally supervised and interpreted the echocardiogram and has reviewed and or edited and agrees with the written comments contained within the report. Procedure Note Landon Carrington - 08/18/2018 Patient name: Yane Fagan Date of test: 08/18/2018 Hospital #: [id number] Location: [facility] Interpreted by: Landon Carrington MD Supervisor Engine Assembly: Amy Penn RDCS RN: Karolyn Lebron RN Reason for Test: chest pain Study quality: Technically good Referring Physician: ROXANA ORMO MD Contrast Agent: 1.5 ml Optison Administered, (1.5 ml wasted). LV Global Function: Normal left ventricular systolic function. Baseline Echo Comments: TDS. Normal LV/RV size and systolic function. Mild concentric LVH. Mild LAE. Impaired LV relaxation c/w diastolic dysfunction. Normal aorta. Normal IVC. Doppler/CF Comments: Mild TR, est PASP 35 mmHg; No TS, No PS/PI, No MS, mild MR, No /AR Baseline HR: 62 Baseline BP: 126/66 Conduction Defects: None Resting ECG Comments: SR/Sinus arrhythmia 60s w/ sttwa V1, V2 Medications: asa, albuterol, pulmicort Meds held: none Peak HR: 151 Peak BP: 154/86 Post-Exercise Comments: Compared to baseline, there is marked increase in global systolic function without new segmental wall motion abnormalities. The patient exercised for 8 min. 16 sec. The patient achieved: 151 bpm 93 % of MPHR METS: 10 Exer. Perf: Good exercise performance. Test terminated: Shortness of breath.leg fatigue Stress ECG Comments: No ischemic changes rare PAC Impression: Maximal Exercise Stress Echocardiogram, NEGATIVE for myocardial ischemia. Confirmed on 08/18/2018 - 11:07:22 by Landon Carrington MD By signing this report, the attending ironing worker certifies that he or she has personally supervised and interpreted the echocardiogram and has reviewed and or edited and agrees with the written comments contained within the report. us Roxana Romo NP CV ECHO PROCEDURES F inal Result * Troponin I (08/18/2018 4:27 AM PORTRAIT ARTIST) Pathologist [facility] Troponin I <0.03 0.00 - 0.03 ng/mL [facility] Comment: Interpretive Data: Normal plasma Troponin I concentrations can reach 1 ng/mL in the first two weeks of life and slowly decrease to adult levels (<0.03 ng/mL) by the age of 3 months. > 3 months ??<0.03 ng/mL > or = 18 years Serial determinations are recommended for the diagnosis of myocardial infarction. ??Temporal rise and fall are consistent with myocardial infarction when at least one value is above the 99th percentile upper reference limit for Troponin assay. References: 1. Clin Chem 2013;59:9474-0321 2. Journal of the [place] [employer] 2012;60:1581-98 Current Interpretive Data Last Revised Date: 2018. Blood specimen (specimen) 08/18/2018 4:27 AM PORTRAIT ARTIST 08/18/2018 4:35 AM PORTRAIT ARTIST Narrative [facility] - 08/18/2018 5:19 AM PORTRAIT ARTIST THE COLLECTION LOCATION IS [facility] Tino Cooper MD LAB BLOOD ORDERABLES Fi nal Result [facility] [place] [address] * Differential, auto (08/17/2018 8:38 PM PORTRAIT ARTIST) Neutrophil abs 4.0 1.7 - 6.5 K/cumm [facility] Imm gran abs 0.0 0.0 - 0.1 K/cumm [facility] Lymphocyte abs 1.6 0.8 - 3.3 K/cumm [facility] Monocyte abs 0.6 0.2 - 0.8 K/cumm [facility] Eosinophil abs 0.1 0.0 - 0.5 K/cumm [facility] Basophil abs 0.1 0.0 - 0.1 K/cumm [facility] Neutrophil pct 62.9 % [facility] Comment: Interpretive Data Percent cell count reference ranges are not reported, since discordance with absolute values may lead to misinterpretation of CBC data. Current Interpretive Data was last revised on 2017. Imm gran pct 0.3 % [facility] Comment: Interpretive Data Percent cell count reference ranges are not reported, since discordance with absolute values may lead to misinterpretation of CBC data. Current Interpretive Data was last revised on 2017. Lymphocyte pct 24.2 % [facility] Comment: Interpretive Data Percent cell count reference ranges are not reported, since discordance with absolute values may lead to misinterpretation of CBC data. Current Interpretive Data was last revised on 2017. Monocyte pct 9.5 % [facility] Comment: Interpretive Data Percent cell count reference ranges are not reported, since discordance with absolute values may lead to misinterpretation of CBC data. Current Interpretive Data was last revised on 2017. Eosinophil pct 2.0 % [facility] Comment: Interpretive Data Percent cell count reference ranges are not reported, since discordance with absolute values may lead to misinterpretation of CBC data. Current Interpretive Data was last revised on 2017. Basophil pct 1.1 % [facility] Comment: Interpretive Data Percent cell count reference ranges are not reported, since discordance with absolute values may lead to misinterpretation of CBC data. Current Interpretive Data was last revised on 2017. Blood specimen (specimen) 08/17/2018 8:38 PM PORTRAIT ARTIST 08/17/2018 8:53 PM PORTRAIT ARTIST Narrative [facility] - 08/17/2018 9:01 PM PORTRAIT ARTIST Marie Mahan MD LAB BLOOD ORDERABLES Fi nal Result [facility] [place] [address] * Troponin I (08/17/2018 8:38 PM PORTRAIT ARTIST) Troponin I <0.03 0.00 - 0.03 ng/mL [facility] Comment: Interpretive Data: Normal plasma Troponin I concentrations can reach 1 ng/mL in the first two weeks of life and slowly decrease to adult levels (<0.03 ng/mL) by the age of 3 months. > 3 months ??<0.03 ng/mL > or = 18 years Serial determinations are recommended for the diagnosis of myocardial infarction. ??Temporal rise and fall are consistent with myocardial infarction when at least one value is above the 99th percentile upper reference limit for Troponin assay. References: 1. Clin Chem 2013;59:1834-3812 2. Journal of the [place] [employer] 2012;60:1581-98 Current Interpretive Data Last Revised Date: 2018. Blood specimen (specimen) 08/17/2018 8:38 PM PORTRAIT ARTIST 08/17/2018 8:53 PM PORTRAIT ARTIST Narrative [facility] - 08/17/2018 9:29 PM PORTRAIT ARTIST THE COLLECTION LOCATION IS Marie Mahan MD LAB BLOOD ORDERABLES nal Result [facility] [place] [address] * (ABNORMAL) CBC with auto differential (08/17/2018 8:38 PM PORTRAIT ARTIST) WBC 6.4 3.8 - 9.9 K/cumm [facility] Hgb 11.2(L) 11.9 - 15.5 g/dL [facility] Hct 36.1 35.6 - 45.5 % [facility] Plt 254 150 - 400 K/cumm [facility] MPV 9.2 9.1 - 12.3 fL [facility] RBC 4.48 3.90 - 5.20 M/cumm [facility] MCV 80.6(L) 81.3 - 96.4 fL [facility] MCH 25.0(L) 27.1 - 33.3 pg [facility] MCHC 31.0(L) 32.3 - 35.7 g/dL [facility] RDW CV 17.8(H) 11.1 - 14.9 % [facility] RDW SD 52.8(H) 35.7 - 48.1 fL [facility] NRBC abs 0.00 0.00 - 0.01 K/cumm [facility] Blood specimen (specimen) (Blood, Venous) 08/17/2018 8:38 PM PORTRAIT ARTIST 08/17/2018 8:53 PM PORTRAIT ARTIST Narrative [facility] - 08/17/2018 9:01 PM PORTRAIT ARTIST THE COLLECTION LOCATION IS Marie Mahan MD LAB BLOOD ORDERABLES Fi nal Result Performing Organization Address City/[facility]/ZIP Co de Phone Number [facility] [place] [address] * Basic metabolic panel (08/17/2018 8:38 PM PORTRAIT ARTIST) Pathologist [facility] Sodium 144 135 - 145 mmol/L [facility] Potassium, pl 3.9 3.3 - 4.9 mmol/L [facility] Chloride 105 97 - 110 mmol/L [facility] CO2 30 22 - 32 mmol/L [facility] Anion gap 9 2 - 15 mmol/L [facility] BUN 13 8 - 25 mg/dL [facility] Creatinine 0.95 0.60 - 1.10 mg/dL [facility] Glucose 96 70 - 199 mg/dL [facility] Comment: Interpretive Data Fasting glucose >/= 126 mg/dl is diagnostic for diabetes. ?? Fasting is defined as no caloric intake for at least 8 hours. Fasting glucose between 100 mg/dl to 125 mg/dl is diagnostic of prediabetes. In a patient with classic symptoms of hyperglycemia or hyperglycemic crisis, a random glucose >/= 200 mg/dl is diagnostic for diabetes. In the absence of unequivocal hyperglycemia, results should be confirmed by repeat testing. The classification and Diagnosis of Diabetes Diabetes Care 2017;40 (Suppl. 1):S11. Current interpretive data was last revised 2017. Calcium 9.5 8.5 - 10.3 mg/dL [facility] Blood specimen (specimen) 08/17/2018 8:38 PM PORTRAIT ARTIST 08/17/2018 8:53 PM PORTRAIT ARTIST Narrative [facility] - 08/17/2018 9:26 PM PORTRAIT ARTIST THE COLLECTION LOCATION IS Marie Mahan MD LAB BLOOD ORDERABLES Fi nal Result Performing Organization Address [facility]/State/ZIP Co de Phone Number [facility] [place] [address] * XR Chest Pa Lateral 2 Vw (08/17/2018 8:25 PM PORTRAIT ARTIST) Anatomical Region Laterality Modality Body, Chest N/A Computed Radiogr aphy 08/17/2018 8:41 PM PORTRAIT ARTIST Impressions 08/18/2018 10:54 AM PORTRAIT ARTIST A loop recorder overlies left hemithorax. ??There is old granulomatous disease. ??Mild right hemidiaphragm elevation is unchanged. ??Lungs are otherwise clear. ??No focal consolidation, pleural effusion or pneumothorax. ??Cardiothymic silhouette is unchanged. ??There is mild thoracic levoscoliosis and moderate lumbar dextroscoliosis. Dictated by: Mars Gupta M.D. Electronically signed by: Kareen Perez M.D. Narrative 08/18/2018 10:54 AM PORTRAIT ARTIST EXAMINATION: XR CHEST PA LATERAL 2 VIEWS HISTORY: Chest pain Procedure Note Kareen Javier MD - 08/18/2018 EXAMINATION: XR CHEST PA LATERAL 2 VIEWS HISTORY: Chest pain IMPRESSION: A loop recorder overlies left hemithorax. There is old granulomatous disease. Mild right hemidiaphragm elevation is unchanged. Lungs are otherwise clear. No focal consolidation, pleural effusion or pneumothorax. Cardiothymic silhouette is unchanged. There is mild thoracic levoscoliosis and moderate lumbar dextroscoliosis. Dictated by: Mars Gupta M.D. Electronically signed by: Kareen Perez M.D. Marie Mahan MD IMG XR PROCEDURES Final Result * ECG 12-LEAD (08/17/2018 8:16 PM PORTRAIT ARTIST) Narrative [facility] - 08/17/2018 8:16 PM PORTRAIT ARTIST Jassi Tony, DO ? 08/17/2018 ??8:17 PM ECG 12 lead Date/Time: 08/17/2018 8:16 PM Performed by: JASIS TONY Authorized by: JASSI TONY Rate: ??ECG rate: ??66 ??ECG rate assessment: normal ?? Rhythm: ??Rhythm: sinus rhythm ?? ST segments: ??ST segments: ??Non-specific T waves: ??T waves: non-specific ?? Other findings: ??Other findings: LVH ?? Previous ECG: ??Previous ECG: ??Compared to current ??Date of previous ECG: ??11/30/2010 ??Comparison ECG info: ??No sig changes ??Similarity: ??No change Interpretation: ??Interpretation: No significant change ?? Recommended Follow-up: ??Recommended follow up: further workup in the ED ?? Procedure Note Jassi Tony DO - 08/17/2018 8:16 PM CST Procedure ECG 12 lead Date/Time: 08/17/2018 8:16 PM Performed by: JASSI TONY Authorized by: JASSI TONY Rate: ECG rate: 66 ECG rate assessment: normal Rhythm: Rhythm: sinus rhythm ST segments: ST segments: Non-specific T waves: T waves: non-specific Other findings: Other findings: LVH Previous ECG: Previous ECG: Compared to current Date of previous EC11/30/2010 Comparison ECG info: No sig changes Similarity: No change Interpretation: Interpretation: No significant change Recommended Follow-up: Recommended follow up: further workup in the ED Jassi Tony DO 08/17/182016 us Marie Mahan MD ECG ORDERABLES Final R esult [facility] documented in this encounter Visit Diagnoses Diagnosis Chest pain of uncertain etiology- Primary documented in this encounter Administered Medications Inactive Administered Medications - up to 3 most recent administrations Medication Order MAR Action Action Date Dose Rate Site aspirin chewable tablet 324 mg 324 mg, oral, Once, On Ama 08/17/18 at 2014, For 1 dose, Indications: Acute Coronary SyndromeIndications:Acute Coronary Syndrome Given 08/17/2018 8:42 PM PORTRAIT ARTIST 324 mg documented in this encounter Discontinued Medications Medication Sig Discontinue Reason Start Date End Da te budesonide (PULMICORT) 90 mcg/actuation inhaler Inhale 1 puff 2 (two) times a day. Rinse mouth with water after use to reduce aftertaste and incidence of candidiasis. Do not swallow. Therapy completed 08/18/2018 documented as of this encounter Active and Recently Administered Medications Times are shown in PORTRAIT ARTIST. Scheduled Medication Order 08/16/2018 08/17/2018 08/18/2018 aspirin chewable tablet 324 mg (COMPLETED) 324 mg, oral, Once, On Ama 08/17/18 at 2014, For 1 dose, Indications: Acute Coronary Syndrome 2041 (Given - Provider: Vic Berry, MICHAEL) documented in this encounter Orders Medications Ordered That Velasquez ht Not Have Been Administered Count Last Ordered Date First Ordered Date aspirin chewable tablet 324 mg 1 08/17/2018 Nursing Count Last Ordered Date First Orde red Date NURSING COMMUNICATION 08/17/2018 IV Count Last Ordered Date First Orde red Date SALINE LOCK IV 1 08/17/2018 ADT Patient Update Count Last Ordered Date Firs t Ordered Date PLACE IN ED OBSERVATION 1 08/18/2018 documented in this encounter Care Teams Computer Game Tester Relationship Specialty Start Date End Date Michael Sherman MD [address] [place] [address] PCP - General 01/28/17 documented as of this encounter
--- OUTSIDE RECORDS SUMMARY | 2024-08-24 04:36 | XMS_ITS | Encounter Summary ---
Author Organization [facility] Address [address] [facility] [address] [place] [address] Phone Care Team Providers Care Crime Scene Photographer Name Role Phone Michael Sherman MD Primary Care Prov ider Reason for Referral * Diagnostic Imaging (Routine) - Closed Specialty Diagnoses / Procedures Referred By Chelsy t Referred To Contact Radiology Diagnoses Pituitary adenoma (HCC) Procedures MRI Pituitary including Brain W WO Contrast Kush Walls MD Phone: tel: fax: [address] [address] Referral ID Status Reason Start Date Expiration Date Visits Re quested Visits Authorized [id number] Closed 08/07/2019 02/15/2021 1 1 P RESERVATIONS COORDINATOR Encounter Details Date Type Department Care Team (Late st Contact Info) Description 08/07/2019 Orders Only [facility] Neurosurgery [address] [place] [address] [place] [id number] Kush Walls MD [address] [address] Pituitary adenoma (CMS/HCC) (Primary Dx) Social History Tobacco Use Types Packs/Day Years Used Date Smoking Tobacco: Never Alcohol Use Standard Drinks/Week Comments No 0 (1 standard drink = 0.6 oz pur e alcohol) Comments No Sex and Gender Information Value Date Recorded Sex Assigned at Not on file Legal Sex Female 11:00 AM GROUP RESERVATIONS COORDINATOR Gender Identity Not on file Sexual Orientation Not on file documented as of this encounter Plan of Treatment Not on file documented as of this encounter Results * MRI Pituitary including Brain W WO Contrast (10/05/2019 6:39 PM GROUP RESERVATIONS COORDINATOR) Anatomical Region Laterality Modality Head and Neck N/A Magnetic Resonan ce 10/06/2019 8:33 AM GROUP RESERVATIONS COORDINATOR Impressions 10/06/2019 8:36 AM GROUP RESERVATIONS COORDINATOR Unchanged uniformly enhancing, prominent pituitary gland, which is again favored to represent anatomic variation rather than a pituitary adenoma given long-term stability. Dictated by: Jason Victoria M.D. The radiology attending physician has personally reviewed this study, and had reviewed and/or edited this written report and agrees with it. Electronically signed by: Jessica Dang M.D. Narrative 10/06/2019 8:36 AM GROUP RESERVATIONS COORDINATOR EXAMINATION: Magnetic resonance imaging (MRI) of the brain and brainstem without and with contrast HISTORY: Prominent pituitary gland TECHNIQUE: Multiplanar multi-weighted MRI of the brain and brainstem was performed without and with intravenous contrast using the pituitary protocol. This included acquisitions showing dynamic contrast enhancement of the sella turcica in the coronal plane and a post-contrast T1-Stealth sequence. Contrast information: 12 mL Dotarem COMPARISON: Comparison is made with multiple prior MR brain pituitary protocol examinations, most recently 09/16/2016 FINDINGS: The morphology of the pituitary gland remains unchanged when compared to examinations dating back to 08/10/2012. ??The pituitary remains prominent, measuring 11 mm in craniocaudal dimension. ??The infundibulum remains midline. ??There is unchanged uniform enhancement of the pituitary gland without evidence of a focal or hypoenhancing lesion. The optic chiasm and orbits are normal. The scalp and calvarium are normal. The superior sagittal sinus demonstrates normal venous flow. The corpus callosum is normal in shape and signal intensity. The posterior fossa is unremarkable. The brainstem and craniocervical junction are unremarkable. The ventricles are normal in size and position without evidence of hydrocephalus. The visualized portions of the orbits, paranasal sinuses, and mastoids appear normal. Procedure Note Jessica Dang MD - 10/06/2019 EXAMINATION: Magnetic resonance imaging (MRI) of the brain and brainstem without and with contrast HISTORY: Prominent pituitary gland TECHNIQUE: Multiplanar multi-weighted MRI of the brain and brainstem was performed without and with intravenous contrast using the pituitary protocol. This included acquisitions showing dynamic contrast enhancement of the sella turcica in the coronal plane and a post-contrast T1-Stealth sequence. Contrast information: 12 mL Dotarem COMPARISON: Comparison is made with multiple prior MR brain pituitary protocol examinations, most recently 09/16/2016 FINDINGS: The morphology of the pituitary gland remains unchanged when compared to examinations dating back to 08/10/2012. The pituitary remains prominent, measuring 11 mm in craniocaudal dimension. The infundibulum remains midline. There is unchanged uniform enhancement of the pituitary gland without evidence of a focal or hypoenhancing lesion. The optic chiasm and orbits are normal. The scalp and calvarium are normal. The superior sagittal sinus demonstrates normal venous flow. The corpus callosum is normal in shape and signal intensity. The posterior fossa is unremarkable. The brainstem and craniocervical junction are unremarkable. The ventricles are normal in size and position without evidence of hydrocephalus. The visualized portions of the orbits, paranasal sinuses, and mastoids appear normal. IMPRESSION: Unchanged uniformly enhancing, prominent pituitary gland, which is again favored to represent anatomic variation rather than a pituitary adenoma given long-term stability. Dictated by: Jason Victoria M.D. The radiology attending physician has personally reviewed this study, and had reviewed and/or edited this written report and agrees with it. Electronically signed by: Jessica Dang M.D. Kush Walls MD [facility] [place] MRI PROCEDURES Final Re sult documented in this encounter Visit Diagnoses Diagnosis Pituitary adenoma (HCC)- Primary Benign neoplasm of pituitary gland and craniopharyngeal duct (pouch) Pituitary adenoma (HCC) Benign neoplasm of pituitary gland and craniopharyngeal duct (pouch) documented in this encounter Care Teams Crime Scene Photographer Relationship Specialty Start Date End Date Michael Sherman MD [address] [place] [address] PCP - General 01/28/17 documented as of this encounter
--- OUTSIDE RECORDS SUMMARY | 2024-08-24 04:36 | XMS_ITS | Encounter Summary ---
Author Organization [facility] Address [address] [address] Care Team Providers Care Workers' Compensation Mediator Name Role Phone Michael Sherman MD Primary Care Prov ider Reason for Visit * Cardiology (Routine) - Canceled Specialty Diagnoses / Procedures Referred By Contac t Referred To Contact Diagnoses Palpitations Procedures DEVICE CHECK - REMOTE Neil Bates MD Phone: tel: fax: Referral ID Status Reason Start Date Expiration Date V isits Requested Visits Authorized [id number] Canceled 11/08/2017 05/07/2018 1 1 Encounter Details Date Type Department Care Team (Latest Contact Info) Description 12/12/2017 9:45 AM CDT Ancillary Procedure [facility] [phone] Palpitations; Status post placement of implantable loop recorder Social History Tobacco Use Types Packs/Day Years Used Date Smoking Tobacco: Never Alcohol Use Standard Drinks/Week Comments No 0 (1 standard drink = 0.6 oz pur e alcohol) Comments Unknown Sex and Gender Information Value Date Recorded Sex Assigned at Not on file Legal Sex Female 11:00 AM 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
--- OUTSIDE RECORDS SUMMARY | 2024-08-24 04:36 | XMS_ITS | Encounter Summary ---
Author Organization [facility] Address [address] [address] Care Team Providers Care Vp Communications Name Role Phone Jason Whyte MD Primary Care Provider Michael Sherman MD Primary Care Prov ider Jason Whyte MD Primary Care Provider [phone] Michael Sherman MD Primary Care Prov ider Neil Bates MD Unavailable Encounter Details Date Type Department Care Team (Late st Contact Info) Description 09/13/2016 Orders Only [facility] ProviderMarisabel MD [address] [place] [id number] Social History Tobacco Use Types Packs/Day Years Used Date Smoking Tobacco: Never Alcohol Use Standard Drinks/Week Comments No 0 (1 standard drink = 0.6 oz pur e alcohol) Comments Unknown Sex and Gender Information Value Date Recorded Sex Assigned at Not on file Legal Sex Female 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 us Historical Provider [facility] Final Result documented in this encounter Visit Diagnoses Not on filedocumented in this encounter Care Teams Vp Communications Relationship Specialty Start Date End Date Jason Whyte MD PCP - General 11/12/16 01/27/17 Michael Sherman MD [address] [place] [address] PCP - General 10/26/16 11/11/16 Jason Whyte MD PCP - General 03/14/15 10/25/16 Michael Sherman MD [address] [place] [address] PCP - General 01/28/17 Neil Bates MD [address] [address] Consulting Physician Cardiology 03/17/20 documented as of this encounter
--- OUTSIDE RECORDS SUMMARY | 2024-08-24 04:36 | XMS_ITS | Encounter Summary ---
Author Organization [facility] Healthcare Address [address] [place] [address] Care Team Providers Care Half Backer Name Role Phone Jason Whyte MD Primary Care Provider [phone] Encounter Details Date Type Department Care Team (Late st Contact Info) Description 01/25/2015 9:24 PM CDT - 01/25/2015 11:36 PM CDT Hospital Encounter [facility] Marquis Fonseca MD [address] [place] [address] Sciatica; Personal history of malignant neoplasm of bronchus and lung; Personal history of allergy to narcotic agent; Personal history of allergy to penicillin; History of allergy to other antibiotic agent; History of allergy to other specified medicinal agents Social History Tobacco Use Types Packs/Day Years Used Date Smoking Tobacco: Never Alcohol Use Standard Drinks/Week Comments Yes 0 (1 standard drink = 0.6 oz pur e alcohol) Comments Unknown Sex and Gender Information Value Date Recorded Sex Assigned at Not on file Legal Sex Female 11:00 AM CONTINUOUS TOWEL ROLLER Gender Identity Not on file Sexual Orientation Not on file documented as of this encounter Plan of Treatment Not on file documented as of this encounter Procedures Procedure Name Priority Date/Time Associated Diagnosis Comments SERUM BASIC METABOLIC PANEL Routine 01/25/2015 10:46 PM CDT BLOOD WBC CELL MORPHOLOGIC EXAM, AUTO Routine 01/25/2015 10:46 PM CDT BLOOD CELL COUNT (CBC) Routine 01/25/2015 10:46 PM CDT SERUM LIPASE Routine 01/25/2015 5:46 PM CDT DISCHARGE LABORATORY CUMULATIVE REPORT Routine 01/25/2015 12:00 AM CDT documented in this encounter Results * (ABNORMAL) Serum basic metabolic panel (01/25/2015 10:46 PM CDT) BUN 12.1 8.0 - 25.0 mg/dl HISTORICAL RESULTS Sodium 144 135 - 145 mmol/L HISTORICAL RESULTS Potassium, sr 4.6 3.5 - 5.1 mmol/L HISTORICAL RESULTS Chloride 104 97 - 110 mmol/L HISTORICAL RESULTS CO2 31 22 - 32 mmol/L HISTORICAL RESULTS Glucose 107 70 - 199 mg/dl HISTORICAL RESULTS Comment: Note:The glucose is assumed non fasting Fastin-99 mg/dl Random: 70-199 mg/dl Either a fasting glucose > 126 mg/dL or a random glucose > 200 mg/dL plus symptoms is diagnostic of diabetes when confirmed on another day. Fasting values > 100 mg/dl but < 125 mg/dL are diagnostic of impaired fasting glucose. Creatinine 1.23(H) 0.60 - 1.10 mg/dl HISTORICAL RESULTS Comment: eGFR:48 ml/min/1.73sq.m if non -Cymro. eGFR:59 ml/min/1.73sq.m if -Cymro. AVE GFR for 50-59 yr. age group: ??93 ml/min/1.73sq.m Calculated using MDRD Equation BUN/creat ratio 10 10 - 20 HIST ORICAL RESULTS A. gap 14 8 - 16 mmol/L HISTORICAL RESULTS Osmo, calc 287 275 - 295 mOsm/kg HISTORICAL RESULTS Calcium 9.7 8.6 - 10.2 mg/dl HISTORICAL RESULTS Serum 01/25/2015 10:4 6 PM CDT us Myrna GARCES LAB BLOOD ORDERABLES Fin al Result Performing Organization Address City/State/[facility] de Phone Number HISTORICAL RESULTS * (ABNORMAL) Blood cell count (CBC) (01/25/2015 10:46 PM CDT) Pathologist [facility] WBC 6.3 4.0 - 10.5 K/cumm HISTORICAL RESULTS RBC 4.56 4.20 - 5.40 M/cumm HISTORICAL RESULTS Hgb 13.3 12.0 - 16.0 g/dl HISTORICAL RESULTS Hct 41.3 37.0 - 47.0 % HISTORICAL RESULTS MCV 90.6 77.0 - 97.0 fl HISTORICAL RESULTS MCH 29.2 23.0 - 34.0 pg HISTORICAL RESULTS MCHC 32.2 32.0 - 36.0 g/dl HISTORICAL RESULTS Rdw 15.9(H) 11.5 - 14.5 % HISTORICAL RESULTS Platelets 189 150 - 400 K/cumm HISTORICAL RESULTS MPV 9.7 7.4 - 10.4 fl HISTORICAL RESULTS Blood specimen (specimen) 01/25/2015 10:46 PM CDT Myrna GARCES LAB BLOOD ORDERABLES Derrell mccullough Result Performing Organization Address [facility] de Phone Number HISTORICAL RESULTS * (ABNORMAL) Blood WBC cell morphologic exam, auto (01/25/2015 10:46 PM CDT) Pathologist [facility] Lymphocytes 21.3(L) 25.0 - 33.0 % HISTORICAL RESULTS Monos 12.6 0.0 - 13.0 % HISTORICAL RESULTS Neutrophils 63.4 54.0 - 69.0 % HISTORICAL RESULTS Eosinophils 2.2 0.0 - 10.0 % HISTORICAL RESULTS Basophils 0.5 0.0 - 1.0 % HISTORICAL RESULTS Immature granulocytes 0.0 0.0 - 1.0 % HISTORICAL RESULTS Lymphocytes, abs 1.4 1.2 - 3.4 K/cumm HISTORICAL RESULTS Monocytes, absolute 0.8(L) 1.1 - 1.9 K/cumm HISTORICAL RESULTS Neutrophils, abs 4.0 1.4 - 6.5 K/cumm HISTORICAL RESULTS Eosinophils, abs 0.1 0.0 - 0.7 cells/cum m HISTORICAL RESULTS Basophils, abs 0.0 0.0 - 0.2 K/cumm HISTORICAL RESULTS Immature granulocyte, abs 0.0 0.0 - 0.0 K/cumm HISTORICAL RESULTS Blood specimen (specimen) 01/25/2015 10:46 PM CDT Myrna GARCES LAB BLOOD ORDERABLES Fin al Result Performing Organization Address City/[facility] Co de Phone Number HISTORICAL RESULTS * Serum lipase (01/25/2015 5:46 PM CDT) Lip 56 10 - 70 Units/L HISTORICAL RESULTS Serum 01/25/2015 5:46 PM CDT Narrative HISTORICAL RESULTS - 01/25/2015 6:10 PM CDT NOTE CHANGE IN REFERENCE RANGE ON 09-24-14. Myrna GARCES LAB BLOOD ORDERABLES Fin al Result Performing Organization Address [facility] de Phone Number HISTORICAL RESULTS * Discharge Laboratory Cumulative Report (01/25/2015 12:00 AM CDT) 01/25/2015 Narrative HISTORICAL RESULTS - 01/27/2015 12:39 AM CDT Patient No: [id number] ? [facility] Patient Name: YANE FAGAN ? [facility] Healthcare Age: 54 YRS ?: 1960 ?Sex:F ?[address] )[id number] ?? Adm Dt: 01/25/2015 ?[place], [place] ??[address] Created: 01/27/2015 ??0039 ?? Pt. Type: E ? Discharge Dt: 01/25/2015 ? Pathologists: Anabel Brightit Dr. Maya Dr: ? BLOOD CELL COUNTS ?Collection Date: ?01/25/15 ?Collection Time: ?2245 ? Ref Range: ?? Units: [4.00-10.50] /CMM ? WBC X 10^3 ?6.33 [4.20-5.40] ??/CMM ? RBC X 10^6 ?4.56 [12.0-16.0] ??G/DL ? HGB ? 13.3 [37.0-47.0] ??% ?HCT ? 41.3 [77.0-97.0] ??FL ? MCV ? 90.6 [23.0-34.0] ??PG ? MCH ? 29.2 [32.0-36.0] ??% ?MCHC ?32.2 [11.5-14.5] ??% ?RDW ? 15.9 H [150-400] ?? /CMM ? PLT X 10^3 ? 189 ?BLOOD CELL DIFFERENTIAL ?Collection Date: ?01/25/ ?Collection Time: ?2246 ? Ref Range: ?? Units: [54.0-69.0] ??% ?NEUTROPHILS ? 63.4 [25.0-33.0] ??% ?LYMPHOCYTES ? 21.3 L [0.0-13.0] ??% ?MONOCYTES ? 12.6 [0.0-10.0] ??% ?EOSINOPHILS ?2.2 [0.0-1.0] ?? % ?BASOPHILS ?0.5 ? /CMM ? A LYMPHOCYTE ? 1.4 [0.0-1.0] ?? % ?IMM GRAN % ? 0.0 [0.00-0.02] ??/CMM ? A IMM GRAN ?0.00 [1.1-1.9] ?? /CMM ? A MONOCYTE ? 0.8 L [1.4-6.5] ?? /CMM ? A NEUTROPHIL ? 4.0 [0.0-0.7] ?? /CMM ? A EOSINOPHIL ? 0.1 [0.0-0.2] ?? /CMM ? A BASOPHIL ? 0.0 Footnotes and Symbols: L = Low, H = High ?? CONTINUED ?Page: ?? 1 Patient No: [id number] ? [facility] Patient Name: YANE FAGAN ? [facility] Healthcare Age: 54 YRS ?: 1960 ?Sex:F ?[address] )[id number] ?? Adm Dt: 01/25/2015 ?[place], [place] ??[address] Created: 01/27/2015 ??0039 ?? Pt. Type: E ? Discharge Dt: 01/25/2015 ? Pathologists: Anabel oTledo MD Admit Attend Dr: ? GENERAL CHEMISTRY ?Collection Date: ?01/25/15 ?Collection Time: ?2246 ? Ref Range: ?? Units: [135-145] ?? MMOL/L ? SODIUM ? 144 [3.5-5.1] ?? MMOL/L ? POTASSIUM ?4.6 [97.0-110.0] MMOL/L ? CHLORIDE ? 104.0 [22.0-32.0] ??MMOL/L ? TOTAL CO2 ? 30.6 ?? [8-16] ?MMOL/L ? ANION GAP ? 14 ??[70-199] ?? MG/DL ?GLUCOSE ?107 f [275-295] ?? MOSM/K ? CALCULATED OSMO ?287 [8.6-10.2] ??MG/DL ?CALCIUM ?9.7 [8.0-25.0] ??MG/DL ?BUN ? 12.1 ??[10-20] ? B/C RATIO ? 10 [0.60-1.10] ??MG/DL ?CREATININE ?1.23 Hf ?01/25/156 eGFR:48 ml/min/1.73sq.m if non -Cymro. eGFR:59 ml/min/1.73sq.m if -Cymro. AVE GFR for 50-59 yr. age group: ??93 ml/min/1.73sq.m Calculated using MDRD Equation FOOTNOTE ADDED ON ?? 01/25/15 ?? AT 2310 BY 999 ??[10-70] ?U/L ?LIPASE ?56 f Footnotes and Symbols: H = High, f = Footnote GLUCOSE (09/25/14 -- Current) Note:The glucose is assumed non fasting Fastin-99 mg/dl Random: 70-199 mg/dl Either a fasting glucose > 126 mg/dL or a random glucose > 200 mg/dL plus symptoms is diagnostic of diabetes when confirmed on another day. Fasting values > 100 mg/dl but < 125 mg/dL are diagnostic of impaired fasting glucose. LIPASE (09/30/14 -- Current) NOTE CHANGE IN REFERENCE RANGE ON 09-24-14. ?? END OF CHART ? Page: ?? 2 us Historical Provider LAB BLOOD ORDERABLES Krystyna swann Result HISTORICAL RESULTS documented in this encounter Visit Diagnoses Diagnosis Sciatica Personal history of malignant neoplasm of bronchus and lung Personal history of allergy to narcotic agent Personal history of allergy to penicillin History of allergy to other antibiotic agent History of allergy to other specified medicinal agents documented in this encounter Care Teams Half Backer Relationship Specialty Start Date End Date Jason Whyte MD PCP - General 12/04/14 03/13/15 documented as of this encounter
--- OUTSIDE RECORDS SUMMARY | 2024-08-24 04:36 | XMS_ITS | Encounter Summary ---
Author Organization [facility] Facility Care Team Providers Care Mis Manager Name Role Phone Jason Whyte MD Primary Care Provider [phone] Encounter Details Date Type Department Care Team (Late st Contact Info) Description 01/07/2015 8:25 AM CDT - 01/13/2015 2:32 PM T Hospital Encounter [facility] Ramón Garcia MD PhD [address] [place] [address] Epilepsy (HCC); Scoliosis (and kyphoscoliosis), idiopathic; Chronic obstructive asthma (HCC); Personal history of allergy to analgesic agent; Personal history of allergy to penicillin; History of allergy to other anti-infective agent; Allergy to peanuts; Allergy to seafood; Other acute pain; Other chronic pain; Backache; Pruritic disorder; Headache; Myalgia and myositis; Personal history of malignant neoplasm of bronchus and lung Social History Tobacco Use Types Packs/Day Years Used Date Smoking Tobacco: Never Alcohol Use Standard Drinks/Week Comments Yes 0 (1 standard drink = 0.6 oz pur e alcohol) Comments Unknown Sex and Gender Information Value Date Recorded Sex Assigned at Not on file Legal Sex 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 Gender Identity Not on file Sexual Orientation Not on file documented as of this encounter Last Filed Vital Signs Vital Sign Reading Time Taken Comments Blood Pressure 105/65 01/13/2015 1:57 PM CDT Pulse 64 01/13/2015 1:57 PM CDT Temperature - - Respiratory Rate - - Oxygen Saturation 100% 01/13/2015 1:57 PM CDT Inhaled Oxygen Concentration - - Weight 59 kg (129 lb 15.7 oz) 01/07/2015 11:27 A M CDT Height 177.8 cm (5' 10 ) 01/07/2015 11:27 AM CDT Body Mass Index 18.65 01/07/2015 11:27 AM CDT documented in this encounter Plan of Treatment Not on file documented as of this encounter Visit Diagnoses Diagnosis Epilepsy (HCC) Unspecified epilepsy without mention of intractable epilepsy Scoliosis (and kyphoscoliosis), idiopathic Chronic obstructive asthma (HCC) Chronic obstructive asthma, unspecified Personal history of allergy to analgesic agent Personal history of allergy to penicillin History of allergy to other anti-infective agent Allergy to peanuts Allergy to seafood Other acute pain Other chronic pain Backache Unspecified backache Pruritic disorder Unspecified pruritic disorder Headache Myalgia and myositis Unspecified myalgia and myositis Personal history of malignant neoplasm of bronchus and lung documented in this encounter Care Teams Mis Manager Relationship Specialty Start Date End Date Jason Whyte MD PCP - General 12/04/14 03/13/15 documented as of this encounter
--- OUTSIDE RECORDS SUMMARY | 2024-08-24 04:36 | XMS_ITS | Encounter Summary ---
Author Organization [facility] Address [address] [address] Care Team Providers Care Emergency Dept Tech Name Role Phone Jason Whyte MD Primary Care Provider [phone] Michael Sherman MD Primary Care Prov ider Jason Whyte MD Primary Care Provider [phone] Michael Sherman MD Primary Care Prov ider Neil Bates MD Unavailable Encounter Details Date Type Department Care Team (Late st Contact Info) Description 08/26/2016 Orders Only [facility] ProviderMarisabel MD [address] [place] [address] Social History Tobacco Use Types Packs/Day Years Used Date Smoking Tobacco: Never Alcohol Use Standard Drinks/Week Comments No 0 (1 standard drink = 0.6 oz pur e alcohol) Comments Unknown Sex and Gender Information Value Date Recorded Sex Assigned at Not on file 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 us Historical Provider [facility]NIGHT Final Result documented in this encounter Visit Diagnoses Not on filedocumented in this encounter Care Teams Emergency Dept Tech Relationship Specialty Start Date End Date Jason Whyte MD PCP - General 11/12/16 01/27/17 Michael Sherman MD [address] [place] [address] PCP - General 10/26/16 11/11/16 Jason Whyte MD PCP - General 03/14/15 10/25/16 Michael Sherman MD [address] [place] [address] PCP - General 01/28/17 Neil Bates MD [address] [address] Consulting Physician Cardiology 03/17/20 documented as of this encounter
--- OUTSIDE RECORDS SUMMARY | 2024-08-24 04:36 | XMS_ITS | Encounter Summary ---
Author Organization [facility] Address [address] [address] Care Team Providers Care Bonding Agent Name Role Phone Michael Sherman MD Primary Care Prov ider Reason for Visit * Cardiology (Routine) - Canceled Specialty Diagnoses / Procedures Referred By Contac t Referred To Contact Diagnoses Palpitations Procedures DEVICE CHECK - REMOTE Neil Bates MD Phone: tel: fax: Referral ID Status Reason Start Date Expiration Date V isits Requested Visits Authorized [id number] Canceled 11/08/2017 05/07/2018 1 1 Encounter Details Date Type Department Care Team (Latest Contact Info) Description 01/23/2018 9:45 AM CDT Ancillary Procedure [facility] Medical [facility] Cardiology [facility] [id number] Palpitations; Status post placement of implantable loop recorder Social History Tobacco Use Types Packs/Day Years Used Date Smoking Tobacco: Never Alcohol Use Standard Drinks/Week Comments No 0 (1 standard drink = 0.6 oz pur e alcohol) Comments Unknown Sex and Gender Information Value Date Recorded Sex Assigned at Not on file 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
--- OUTSIDE RECORDS SUMMARY | 2024-08-24 04:36 | XMS_ITS | Encounter Summary ---
Author Organization [facility] Healthcare Address [address] [place] [address] Care Team Providers Care Foundry Melt Supervisor Name Role Phone Jason Whyte MD Primary Care Provider [phone] Encounter Details Date Type Department Care Team (Late st Contact Info) Description 07/16/2014 12:42 PM IN FLIGHT REFUELING SYSTEM REPAIRER - 07/16/2014 11:59 PM IN FLIGHT REFUELING SYSTEM REPAIRER Hospital Encounter [facility] Elijah Solano MD [address] [place] [address] [address] [place] [address] Other malaise and fatigue; Hypothyroidism Social History Tobacco Use Types Packs/Day Years Used Date Smoking Tobacco: Never Alcohol Use Standard Drinks/Week Comments Yes 0 (1 standard drink = 0.6 oz pur e alcohol) Comments Unknown Sex and Gender Information Value Date Recorded Sex Assigned at Not on file Legal Sex Female 11:00 AM IN FLIGHT REFUELING SYSTEM REPAIRER Gender Identity Not on file Sexual Orientation Not on file documented as of this encounter Plan of Treatment Not on file documented as of this encounter Procedures Procedure Name Priority Date/Time Associated Diagnosis Comments SERUM THYROXINE (T4), FREE Routine 07/16/2014 12:57 PM IN FLIGHT REFUELING SYSTEM REPAIRER SERUM THYROID-STIMULATING HORMONE (TSH) Routine 07/16/2014 12:57 PM IN FLIGHT REFUELING SYSTEM REPAIRER DISCHARGE LABORATORY CUMULATIVE REPORT Routine 07/16/2014 12:00 AM IN FLIGHT REFUELING SYSTEM REPAIRER documented in this encounter Results * Serum thyroid-stimulating hormone (TSH) (07/16/2014 12:57 PM IN FLIGHT REFUELING SYSTEM REPAIRER) TSH 2.36 0.35 - 4.80 mcIUnits/ml HISTORICAL RESULTS Serum 07/16/2014 12:5 7 PM IN FLIGHT REFUELING SYSTEM REPAIRER Elijah Nuno MD LAB BLOOD ORDERABLES Fi nal Result Performing Organization Address [facility] de Phone Number HISTORICAL RESULTS * Serum thyroxine (T4), free (07/16/2014 12:57 PM IN FLIGHT REFUELING SYSTEM REPAIRER) Free T4 0.8 0.7 - 1.3 ng/dl HISTORICAL RESULTS Serum 07/16/2014 12:5 7 PM IN FLIGHT REFUELING SYSTEM REPAIRER Elijah Nuno MD LAB BLOOD ORDERABLES Fi nal Result Performing Organization Address [facility] de Phone Number HISTORICAL RESULTS * Discharge Laboratory Cumulative Report (07/16/2014 12:00 AM IN FLIGHT REFUELING SYSTEM REPAIRER) 07/16/2014 Narrative HISTORICAL RESULTS - 07/18/2014 12:38 AM IN FLIGHT REFUELING SYSTEM REPAIRER Patient No: [id number] ? [facility] Patient Name: YANE FAGAN ? [facility] Age: 53 YRS ?: 1960 ?Sex:F ?[address] )[id number] ?? Adm Dt: 07/16/2014 ?[place] ??[address] Created: 07/18/2014 ??0038 ?? Pt. Type: R ? Discharge Dt: 07/16/2014 ? Pathologists: Anabel Toledo MD Admit Attend Dr: ELIJAH NUNO MD ?THYROID FUNCTION TESTS ?Collection Date: ?07/16/14 ?Collection Time: ?1257 ? Ref Range: ?? Units: [0.7-1.3] ?? NG/DL ?FREE T4 ?0.8 [0.35-4.80] ??uIU/ML ? TSH ? 2.36 ?? END OF CHART ? Page: ?? 1 us Historical Provider LAB BLOOD ORDERABLES Krystyna l Result Performing Organization Address City/State/[facility] Co de Phone Number HISTORICAL RESULTS documented in this encounter Visit Diagnoses Diagnosis Other malaise and fatigue Hypothyroidism Unspecified hypothyroidism documented in this encounter Care Teams Foundry Melt Supervisor Relationship Specialty Start Date End Date Jason Whtye MD PCP - General 10/09/13 12/03/14 documented as of this encounter
--- OUTSIDE RECORDS SUMMARY | 2024-08-24 04:36 | XMS_ITS | Encounter Summary ---
Author Organization [facility] Healthcare Address [address] [place] [address] Care Team Providers Care Senior Applications Architect Name Role Phone Michael Sherman MD Primary Care Prov ider Encounter Details Date Type Department Care Team (Latest Contact Info) Description 08/18/2018 8:38 AM FURNITURE FABRICATOR - 08/18/2018 11:59 PM FURNITURE FABRICATOR Hospital Encounter [facility] Card[facility] Diagnostic [facility] [address] [place] [address] Discharge Disposition: Discharge to home or self care Social History Tobacco Use Types Packs/Day Years Used Date Smoking Tobacco: Never Alcohol Use Standard Drinks/Week Comments No 0 (1 standard drink = 0.6 oz pur e alcohol) Comments No Sex and Gender Information Value Date Recorded Sex Assigned at Not on file Legal Sex Female 11:00 AM FURNITURE FABRICATOR Gender Identity Not on file Sexual Orientation Not on file documented as of this encounter Last Filed Vital Signs Vital Sign Reading Time Taken Comments Blood Pressure 115/60 08/18/2018 11:00 AM FURNITURE FABRICATOR Pulse 73 08/18/2018 11:00 AM FURNITURE FABRICATOR Temperature - - Respiratory Rate 12 08/18/2018 11:00 AM FURNITURE FABRICATOR Oxygen Saturation - - Inhaled Oxygen Concentration - - Weight 61.2 kg (135 lb) 08/18/2018 9:50 AM FURNITURE FABRICATOR Height 180.3 cm (5' 11 ) 08/18/2018 9:50 AM FURNITURE FABRICATOR Body Mass Index 18.83 08/18/2018 9:50 AM FURNITURE FABRICATOR documented in this encounter Medications at Time [...] 08/18/2018 0 documented as of this encounter Discharge Disposition Disposition Code Departure Means Destination Discharge to home or self care documented in this encounter Plan of Treatment Not on file documented as of this encounter Procedures Procedure Name Priority Date/Time Associated Diagnosis Comments STRESS ECHO EXERCISE W DOPPLER/CF W CONTRAST Routine 08/18/2018 11:01 AM FURNITURE FABRICATOR documented in this encounter Visit Diagnoses Not on filedocumented in this encounter Administered Medications Inactive Administered Medications - up to 3 most recent administrations Medication Order MAR Action Action Date Dose Rate Site perflutren protein-a (OPTISON) 3 mL in sodium chloride 0.9% 8 mL syringe 1-8 mL, intravenous, Once in imaging, contrast, Starting on Tue08/18/18 at 0953, For 1 dose, Intra-Procedure (CV) Given 08/18/2018 11:00 AM FURNITURE FABRICATOR 4 mL documented in this encounter Orders Medications Ordered That Velasquez ht Not Have Been Administered Count Last Ordered Date First Ordered Date perflutren protein-a (OPTISO N) 3 mL in sodium chloride 0.9% 8 mL syringe 1 08/18/2018 documented in this encounter Care Teams Senior Applications Architect Relationship Specialty Start Date End Date Michael Sherman MD [address] [place] [address] PCP - General 01/28/17 documented as of this encounter
--- OUTSIDE RECORDS SUMMARY | 2024-08-24 04:36 | XMS_ITS | Encounter Summary ---
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
--- OUTSIDE RECORDS SUMMARY | 2024-08-24 04:36 | XMS_ITS | Encounter Summary ---
Author Organization [facility] Healthcare Address [address] [place] [address] Care Team Providers Care Sales And Service Engineer Name Role Phone Jason Whyte MD Primary Care Provider [phone] Michael Sherman MD Primary Care Prov ider Encounter Details Date Type Department Care Team (Late st Contact Info) Description 10/26/2016 Orders Only [facility] [phone] Sofia Matson MD [address] [facility] [address], [place] [id number] Social History Tobacco Use Types Packs/Day Years Used Date Smoking Tobacco: Never Alcohol Use Standard Drinks/Week Comments No 0 (1 standard drink = 0.6 oz pur e alcohol) Comments Unknown Sex and Gender Information Value Date Recorded Sex Assigned at Not on file Legal Sex Female 11:00 AM CREAM SEPARATOR OPERATOR Gender Identity Not on file Sexual Orientation Not on file documented as of this encounter Plan of Treatment Not on file documented as of this encounter Procedures Procedure Name Priority Date/Time Associated Diagnosis Comments INSULIN-LIKE GROWTH FACTOR Routine Gen Lab 10/26/2016 6:02 PM CDT documented in this encounter Results * Insulin-like growth factor (IGF-1) (10/26/2016 6:02 PM CDT) Insulin-like growth factor 1 (IGF-1) 163 100 - 250 ng/mL [facility] Blood specimen (specimen) 10/26/2016 6:02 PM CDT 10/26/2016 6:06 PM CDT us Sofia Matson MD LAB BLOOD ORDERABLES Final Re sult [facility] [place] [address] documented in this encounter Visit Diagnoses Not on filedocumented in this encounter Care Teams Sales And Service Engineer Relationship Specialty Start Date End Date Jason Whyte MD PCP - General 11/12/16 01/27/17 Michael Sherman MD [address] [place] [address] PCP - General 10/26/16 11/11/16 documented as of this encounter
--- OUTSIDE RECORDS SUMMARY | 2024-08-24 04:36 | XMS_ITS | Encounter Summary ---
Author Organization [facility] Address [address] [facility] [address] [place] [address] Phone Care Team Providers Care Summer Counselor Name Role Phone Michael Sherman MD Primary Care Prov ider Reason for Visit * Consultation (Routine) - Canceled Specialty Diagnoses / Procedures Referred By Chelsy t Referred To Contact Endocrinology Diagnoses Pituitary gland enlarged (HCC) Sofia Matson MD Phone: tel: fax: [facility] (All Locations) Referral ID Status Reason Start Date Expiration Date Visits Requested Visits Authorized [id number] Canceled Specialty Services Required 10/12/2019 04/22/2021 1 1 Encounter Details Date Type Department Care Team (Late st Contact Info) Description 12/04/2019 3:30 PM CDT Telemedicine [facility] Endocrinology Metabolism and Lipid [address] [facility] 13th [place] [address] [place] [address] Sofia Matson MD [address] [facility] [address] [place] [address] Pituitary gland enlarged (CMS/HCC) (Primary Dx); Pre-diabetes Social History Tobacco Use Types Packs/Day Years Used Date Smoking Tobacco: Never Smokeless Tobacco: Never Alcohol Use Standard Drinks/Week Comments No 0 (1 standard drink = 0.6 oz pur e alcohol) Comments No Sex and Gender Information Value Date Recorded Sex Assigned at Not on file 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 During the visit, I was located in the office and the patient was located at home. The session started at 3:45 and ended at 4:20 pm. The patient has been informed that the visit may not be secure and acknowledged the information. I have explained the option of participating in a telephone or video visit during the [facility] emergency to the patient. After being given an opportunity to ask questions about and discuss this type of visit, the patient verbally consented to proceeding with the telephone / video visit. The patient understands that this service replaces an office visit and they may be billed and/or responsible for any applicable copayments. Subjective Chief Complaint: Patient is a 59 y.o. female presenting for follow up of pituitary tumor. HPI: 59 yo woman who is seen in follow-up for her enlarged pituitary, found incidentally on imaging someyears ago. Her initial pituitary axis workup was normal except for a free t4 in the lower normal range. She has recently was seen by neurosurgery (09/2019) and has a recent brain MRI that did not show any changes in her pituitary adenoma. In her recent neurosurgery appointment, she was told she needs to be evaluated for Diabetes due to a number of vague complaints. Her last A1C couple of years ago showed she was in the pre-diabetic range. She was diagnosed with gestational diabetes in her second that was diet controlled. So far she states she has lost three months over the last 3 months and seems she feels more thirsty lately. She has a strong family history of T2D (father and uncle). She states she has been having blurry vision, feels tired and has occasional headaches. She denies nausea, vomiting, abdominal pain or seizures. Review of Systems ROS completed and negative other than noted above in the HPI Objective Vitals: There were no vitals taken for this visit. Physical exam: PE was not performed due to phone interview Lab/Radiology/Diagnostic Review: Lab Results Component Value Date HGBA1C 5.7 10/26/2016 HGBA1C 5.9 07/30/2015 Lab Results Component Value Date CREATININE 0.95 08/17/2018 Lab Results Component Value Date TSH 2.83 10/26/2016 Assessment/Plan Patient is a 59 y.o. female presenting for follow up of pituitary enlargement. Pituitary enlargement vs adenoma: Initial pituitary workup (2016) showed normal hormonal pituitary axis with a free t4 in the lower normal limit She was recently seen by neurosurgery 09/2019 and had a recent brain MRI that did not show any changed in her pituitary stricture Recommend pituitary axis workup: IGF-1, FSH, free t4. Prediabetes Diagnosed in 2017 Recommend check A1C, CMP, CBC to clarify diabetes status Will follow up with results Follow-up in 1 year or as needed Discussed with Dr Huyen Mcpherson MD Endocrinology Fellow Cosigned by Sofia Matson MD at 12/05/2019 9:21 PM CDT Associated attestation - Sofia Matson MD - 12/05/2019 9:21 PM CDT I have seen and examined the patient. I agree with the findings and plan of care as documented in the resident/fellow's note. documented in this encounter Plan of Treatment Not on file documented as of this encounter Procedures Procedure Name Priority Date/Time Associated Diagnosis Comments CBC WITH AUTO DIFFERENTIAL Routine 12/14/2019 10:27 AM CDT Pre-diabetes INSULIN-LIKE GROWTH FACTOR Routine 12/14/2019 10:27 AM CDT Pituitary gland enlarged ([facility]/HCC) HEMOGLOBIN A1C Routine 12/14/2019 10:27 AM CDT Pre-diabetes FOLLICLE STIMULATING HORMONE Routine 12/14/2019 10:27 AM CDT Pituitary gland enlarged (CMS/HCC) COMPREHENSIVE METABOLIC PANEL Routine 12/14/2019 10:27 AM CDT Pre-diabetes documented in this encounter Results * CBC with auto differential (12/14/2019 10:27 AM CDT) WBC 4.4 3.8 - 10.8 Thousand/ uL [facility] [place] RBC, POC 4.60 3.80 - 5.10 Million/u L [facility] Hgb 13.2 11.7 - 15.5 g/dL [facility] [place] Hct 41.1 35.0 - 45.0 % [facility] [place] MCV 89.3 80.0 - 100.0 fL [facility] [place] MCH 28.7 27.0 - 33.0 pg [facility] [place] MCHC 32.1 32.0 - 36.0 g/dL [facility] [place] Rdw 14.9 11.0 - 15.0 % [facility] [place] Platelets 212 140 - 400 Thousand/ uL [facility] [place] MPV 9.9 7.5 - 12.5 fL [facility] [place] Neutrophils, abs 2,508 1,500 - 7,800 cells/uL [facility] [place] Neutrophil bands, abs CANCELED 0 - 750 cells/uL [facility] [place] Comment:Result canceled by t he ancillary. Metamyelocytes, abs CANCELED 0 cells/uL [facility] [place] Comment:Result canceled by t he ancillary. Myelocytes, abs CANCELED 0 cells/uL [facility] [place] Comment:Result canceled by t he ancillary. Promyelocytes, abs CANCELED 0 cells/uL [facility] [place] Comment:Result canceled by t he ancillary. Lymphocytes, abs 1,267 850 - 3,900 cells/uL [facility] [place] Monocyte abs 405 200 - 950 cells/uL [facility] [place] Eosinophils, abs 141 15 - 500 cells/uL [facility] [place] Basophils, abs 79 0 - 200 cells/uL [facility] [place] Blast, cell CANCELED 0 cells/uL [facility] [place] Comment:Result canceled by t he ancillary. NRBC abs CANCELED 0 cells/uL [facility] [place] Comment:Result canceled by t he ancillary. Neutrophils 57 % [facility] [place] Neutrophilic bands CANCELED % [facility] [place] Comment:Result canceled by t he ancillary. Metamyelocyte pct CANCELED % [facility] [place] Comment:Result canceled by t he ancillary. Myelocyte pct CANCELED % [facility] [place] Comment:Result canceled by t he ancillary. Promyelocyte pct CANCELED % [facility] [place] Comment:Result canceled by t he ancillary. Lymphocyte pct 28.8 % [facility] [place] Reactive lymph CANCELED 0 - 10 % [facility] [place] Comment:Result canceled by t he ancillary. Monocytes 9.2 % [facility] [place] Eosinophils 3.2 % [facility] [place] Basophils 1.8 % [facility] [place] Blast pct CANCELED % [facility] [place] Comment:Result canceled by t he ancillary. NRBC CANCELED 0 /100 WBC [facility] [place] Comment:Result canceled by t he ancillary. Comment CANCELED [facility] [place] Comment:Result canceled by t he ancillary. Blood specimen (specimen) 12/14/2019 10:27 AM CDT 12/14/2019 10:28 AM CDT Narrative [facility] - 12/19/2019 10:15 PM CDT FASTING:NO FASTING: NO Resulting Agency Comment Performing Organization Information: ?Site ID: [place] ?Name: [facility] ?Address: [address] [place], [place] [address] [facility] [place] [address] ?Director: Cruz Harry D.O., MPH Sofia Matson MD LAB BLOOD ORDERABLES Final Re sult [facility] [place] * Comprehensive metabolic panel (12/14/2019 10:27 AM CDT) Glucose 82 65 - 139 mg/dL [facility] [place] Comment: ? Non-fasting reference interval BUN 11 7 - 25 mg/dL [facility] Creatinine 0.94 0.50 - 1.05 mg/dL [facility] [place] Comment: For patients >49 years of age, the reference limit for Creatinine is approximately 13% higher for people identified as -Vincentian. eGFR NON-AFR. SAMMARINESE 66 > OR = 60 mL/min/1 .73m2 [facility] [place] EGFR 77 > OR = 60 mL/min/1 .73m2 [facility] BUN/creat ratio NOT APPLICABLE 6 - 22 (calc) [facility] Sodium 144 135 - 146 mmol/L [facility] [place] Potassium, pl 4.6 3.5 - 5.3 mmol/L [facility] [place] Chloride 107 98 - 110 mmol/L [facility] [place] CO2 27 20 - 32 mmol/L [facility] [place] Calcium 9.4 8.6 - 10.4 mg/dL [facility] [place] Protein, sr 6.9 6.1 - 8.1 g/dL [facility] [place] Albumin 4.4 3.6 - 5.1 g/dL [facility] [place] GLOBULIN 2.5 1.9 - 3.7 g/dL (calc) [facility] [place] Alb/glob ratio 1.8 1.0 - 2.5 (calc) [facility] [place] Bilirubin, total 0.4 0.2 - 1.2 mg/dL [facility] [place] Alk phos 82 37 - 153 U/L [facility] AST 11 10 - 35 U/L [facility] ALT (SGPT) 9 6 - 29 U/L [facility] Blood specimen (specimen) 12/14/2019 10:27 AM CDT 12/14/2019 10:28 AM CDT Narrative [facility] - 12/19/2019 10:15 PM CDT FASTING:NO FASTING: NO Resulting Agency Comment Performing Organization Information: ?Site ID: [place] ?Name: [facility] ?Address: [address] [place] [address] ?Director: Cruz Harry D.O., MPH us Sofia Matson MD LAB BLOOD ORDERABLES Final Re sult [facility] [place] * (ABNORMAL) Follicle stimulating hormone (12/14/2019 10:27 AM CDT) FSH 122.8(H) mIU/mL [facility] [place] Comment: ?Reference Range ? Follicular Phase ? 2.5-10.2 ? Mid-cycle Peak ? 3.1-17.7 ? Luteal Phase ? 1.5- 9.1 ? Postmenopausal ? 23.0-116.3 ? Blood specimen (specimen) 12/14/2019 10:27 AM CDT 12/14/2019 10:28 AM CDT Narrative [facility] - 12/19/2019 10:15 PM CDT FASTING:NO FASTING: NO Resulting Agency Comment Performing Organization Information: ?Site ID: [place] ?Name: [facility] ?Address: [address] [facility] [place] [address] ?Director: Cruz Harry D.O., MPH us Sofia Matson MD LAB BLOOD ORDERABLES Final Re sult [facility] [place] * Insulin-like growth factor (IGF-1) (12/14/2019 10:27 AM CDT) [facility] IGF 1, LC/MS 147 50 - 317 ng/mL [facility] [place] Z SCORE (MALE) CANCELED [facility] Comment:Result canceled by keon soliz. Z SCORE (FEMALE) 0.2 -2.0 - 2.0 SD [facility] Comment: This test was developed and its analytical performance characteristics have been determined by [facility]. It has not been cleared or approved by FDA. This assay has been validated pursuant to the CLIA regulations and is used for clinical purposes. Blood specimen (specimen) 12/14/2019 10:27 AM CDT 12/14/2019 10:28 AM CDT Narrative [facility] - 12/19/2019 10:15 PM CDT FASTING:NO FASTING: NO Resulting Agency Comment Performing Organization Information: ?Site ID: [id number] ?Name: [facility], ?Address: [address] [place] [id number] ?Director: Kellee Dai MD,PhD,TERESITA us Sofia Matson MD LAB BLOOD ORDERABLES Final Re sult Performing Organization Address City/[facility] Co de Phone Number [facility] [place] * (ABNORMAL) Hemoglobin A1c (12/14/2019 10:27 AM CDT) Hgb A1C 5.8(H) <5.7 % of total Hgb [facility] [place] Comment: For someone without known diabetes, a hemoglobin A1c value between 5.7% and 6.4% is consistent with prediabetes and should be confirmed with a follow-up test. For someone with known diabetes, a value <7% indicates that their diabetes is well controlled. A1c targets should be individualized based on duration of diabetes, age, comorbid conditions, and other considerations. This assay result is consistent with an increased risk of diabetes. Currently, no consensus exists regarding use of hemoglobin A1c for diagnosis of diabetes for children. Blood specimen (specimen) 12/14/2019 10:27 AM CDT 12/14/2019 10:28 AM CDT Narrative [facility] - 12/19/2019 10:15 PM CDT FASTING:NO FASTING: NO Resulting Agency Comment Performing Organization Information: ?Site ID: [place] ?Name: [facility] ?Address: [address] [place] [address] ?Director: Cruz Harry D.O., MPH Sofia Matson MD LAB BLOOD ORDERABLES Final Re sult [facility] [place] documented in this encounter Visit Diagnoses Diagnosis Pituitary gland enlarged (HCC)- Primary Other disorders of the pituitary and other syndromes of diencephalohypophyseal origin Pre-diabetes Other abnormal glucose documented in this encounter Care Teams Summer Counselor Relationship Specialty Start Date End Date Michael Sherman MD [address] [place] [address] PCP - General 01/28/17 documented as of this encounter
--- OUTSIDE RECORDS SUMMARY | 2024-08-24 04:36 | XMS_ITS | Encounter Summary ---
Author Organization [facility] Address [address] [facility] [address] [place] [address] Phone Care Team Providers Care Group Fitness Assistant Department Head Name Role Phone Michael Sherman MD Primary Care Prov ider Neil Bates MD Unavailable Encounter Details Date Type Department Care Team (Latest Contact Info) Description 04/08/2017 Orders Only [facility] CONVERSION Scanning, Provider Social History Tobacco Use Types Packs/Day Years Used Date Smoking Tobacco: Never Alcohol Use Standard Drinks/Week Comments No 0 (1 standard drink = 0.6 oz pur e alcohol) Comments Unknown Sex and Gender Information Value Date Recorded Sex Assigned at Not on file 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 Gender Identity Not on file Sexual Orientation Not on file documented as of this encounter Plan of Treatment Not on file documented as of this encounter Procedures Procedure Name Priority Date/Time Associated Diagnosis Comments PULMONARY FUNCTION TEST (PFT) 04/08/2017 12:32 PM CDT documented in this encounter Results * PULMONARY FUNCTION TEST (PFT) (04/08/2017 12:32 PM CDT) Anatomical Region Laterality Modality PFT us Provider Scanning PFT ORDERABLES Final Result documented in this encounter Visit Diagnoses Not on filedocumented in this encounter Care Teams Group Fitness Assistant Department Head Relationship Specialty Start Date End Date Michael Sherman MD [address] [place] [address] PCP - General 01/28/17 Neil Bates MD [address] [address] Consulting Physician Cardiology 03/17/20 documented as of this encounter
--- OUTSIDE RECORDS SUMMARY | 2024-08-24 04:36 | XMS_ITS | Encounter Summary ---
Author Organization [facility] Care Team Providers Care Information Technology Assistant Name Role Phone Jason Whyte MD Primary Care Provider [phone] Encounter Details Date Type Department Care Team (Late st Contact Info) Description 02/02/2016 12:35 PM CDT - 02/02/2016 11:59 PM CDT Hospital Encounter [facility] Nanda Caruso MD [address] [place] [address] Chronic migraine without aura without status migrainosus, not intractable; Other general symptoms and signs; manager terminal current use of aspirin; Benign neoplasm of pituitary gland (CMS/HCC); Personal history of malignant neoplasm of brain; Type 2 diabetes mellitus without complications (CMS/HCC); Hypothyroidism; Uncomplicated asthma; Other specified arthritis, unspecified site; Other assistant terminal manager (current) drug therapy; Allergy status to analgesic agent; Latex allergy status Social History Tobacco Use Types Packs/Day Years Used Date Smoking Tobacco: Never Alcohol Use Standard Drinks/Week Comments No 0 (1 standard drink = 0.6 oz pur e alcohol) Comments Unknown Sex and Gender Information Value Date Recorded Sex Assigned at Not on file 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 Gender Identity Not on file Sexual Orientation [...] as of this encounter Visit Diagnoses Diagnosis Chronic migraine without aura without status migrainosus, not intractable Other general symptoms and signs manager terminal current use of aspirin Benign neoplasm of pituitary gland (HCC) Benign neoplasm of pituitary gland and craniopharyngeal duct (pouch) Personal history of malignant neoplasm of brain Type 2 diabetes mellitus without complications (CMS/HCC) (HCC) Hypothyroidism Unspecified hypothyroidism Uncomplicated asthma Other specified arthritis, unspecified site Other assistant terminal manager (current) drug therapy Allergy status to analgesic agent Latex allergy status documented in this encounter Care Teams Information Technology Assistant Relationship Specialty Start Date End Date Jason Whyte MD PCP - General 03/14/15 10/25/16 documented as of this encounter
--- OUTSIDE RECORDS SUMMARY | 2024-08-24 04:36 | XMS_ITS | Encounter Summary ---
Author Organization [facility] Address [address] [address] Care Team Providers Care Salesperson Yard Goods Name Role Phone Michael Sherman MD Primary Care Prov ider Reason for Visit * Cardiology (Routine) - Closed Specialty Diagnoses / Procedures Referred By Contfinn t Referred To Contact Diagnoses Palpitations Procedures DEVICE CHECK - REMOTE Neil Bates MD Phone: tel: fax: Referral ID Status Reason Start Date Expiration Date Visits Re quested Visits Authorized [id number] Closed 02/19/2017 08/18/2017 1 1 Encounter Details Date Type Department Care Team (Latest Contact Info) Description 06/27/2017 8:15 AM JAVA WEB ARCHITECT Ancillary Procedure [facility] Medical [facility] Cardiology [facility] [address] [address] Palpitations; Status post placement of implantable loop recorder Social History Tobacco Use Types Packs/Day Years Used Date Smoking Tobacco: Never Alcohol Use Standard Drinks/Week Comments No 0 (1 standard drink = 0.6 oz pur e alcohol) Comments Unknown Sex and Gender Information Value Date Recorded Sex Assigned at Not on file 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
--- OUTSIDE RECORDS SUMMARY | 2024-08-24 04:36 | XMS_ITS | Encounter Summary ---
Author Organization [facility] Healthcare Address [address] [place] [address] Care Team Providers Care Security Patrol Officer Name Role Phone Jason Whyte MD Primary Care Provider [phone] Encounter Details Date Type Department Care Team (Late st Contact Info) Description 11/13/2014 6:54 PM CDT - 11/13/2014 11:59 PM CDT Hospital Encounter [facility] Elijah Solano MD [address] [place] [address] [place] [address] Narcolepsy without cataplexy(347.00) Social History Tobacco Use Types Packs/Day Years Used Date Smoking Tobacco: Never Alcohol Use Standard Drinks/Week Comments Yes 0 (1 standard drink = 0.6 oz pur e alcohol) Comments Unknown Sex and Gender Information Value Date Recorded Sex Assigned at Not on file 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 Room No: : ?1960 ? Patient Type: ?ANC Attend.: ??Elijah Nuno M.D. ?Admit Date: ??11/13/2014 Dict.: ?Dorothy Conway M.D., D.M. ?Disch. Date: 11/13/2014 ?COMPREHENSIVE POLYSOMNOGRAM ?MULTIPLE SLEEP LATENCY TEST DATE OF PROCEDURE: ??11/13/2014. INDICATION FOR STUDY: ??Ms. Fagan is a 54-year-old with primary symptoms of hypersomnia. ??Patient's polysomnography was essentially normal. ??Patient subsequently underwent a multiple sleep latency test. NAP # ?? SLEEP ONSET LATENCY (MINUTES) ??SLEEP ONSET REM(0=no;1=yes) 1 ? 2.5 ?0 2 ? 5.5 ?0 3 ? 2.0 ?0 4 ? 1.0 ?0 MEAN SLEEP LATENCY: ??2.7 minutes. SLEEP ONSET RAPID EYE MOVEMENT: ??0. IMPRESSION: ??This is a abnormal multiple sleep latency test as evidenced by significantly reduced mean sleep latency. This was not associated with sleep onset rapid eye movement episodes. ??This is suggestive of primary hypersomnia. Clinical correlation is recommended. AXIS A: ??Idiopathic hypersomnia without long sleep time 327.12. AXIS B: ??Multiple sleep latency test, [address]. Dorothy Conway M.D., BasiliaM. BAYRON/jazmine Job #: ??[id number] DD: ??11/17/2014 14:34 TD: ??11/18/2014 11:24 Electronically Authenticated and Edited by: Dorothy Conway MD On 11/24/2014 06:16 PM CDT us Historical Provider SLEEP CENTER ORDERABLES F inal Result HISTORICAL RESULTS * PSG (SIMPLE) (11/13/2014 12:00 AM CDT) 11/13/2014 Narrative HISTORICAL RESULTS - 11/24/2014 10:01 PM CDT ?SLEEP DISORDER REPORT Patient: ??YANE FAGAN Account: ??[id number] ? Room No: : ?1960 ? Patient Type: ?ANC Attend.: ??Elijah Nuno M.D. ?Admit Date: ??11/13/2014 Dict.: ?Dorothy Conway M.D., D.M. ?Disch. Date: 11/13/2014 ?COMPREHENSIVE POLYSOMNOGRAM DATE OF PROCEDURE: 11/13/14. INDICATION FOR STUDY: ??The patient is a 54-year-old with chief complaints of snoring and excessive daytime sleepiness. ??Patient has an [place]'s sleepiness scale score of 12. VITAL STATISTICS: ??Age: ??54 years. ??Height: 69 . ??Weight: ??130 pounds. ??Body mass index: ??19.3. PROCEDURE: ??The patient underwent an overnight polysomnogram to include sleep stage recording, cardiorespiratory monitoring, EEG, as well as videotaping. DESCRIPTION OF POLYSOMNOGRAPHIC FINDINGS: ??The patient total time in bed was 470.3 minutes. The total sleep time was 424 minutes. ??Sleep efficiency was 90.1%. Latency from lights out to stage N1 was 10 minutes, latency to stage N2 was 1.5 minutes, latency to stage N3 was 42.5 minutes and latency to stage REM was 106 minutes. ??Sleep stage recording revealed stage awake of 46.5 minutes. Stage NREM comprised 370.5 minutes (87.4% of total sleep time). ??This included stage N1 of 26 minutes (6.1% of total sleep time), stage N2 of 333.5 minutes (78.7% of total sleep time) and stage N3 of 11 minutes (4.6% of total sleep time). Stage REM comprised 53.5 minutes (12.6% of total sleep time). Arousal analysis revealed a total of 96 arousals. ??The arousal index was 13.6. There were 45 spontaneous arousals with a spontaneous arousal index of 6.4. The apnea/hypopnea index (AHI) was 0.1. The AHI was 0.5 in supine position and none in the non-supine position. ??One obstructive apnea was recorded. ??Baseline oxygen saturation was 95.4% and lowest oxygen saturation was 92%. ??Snoring was described as mild. Limb movement recording did not reveal any periodic limb movements. ??The average heart rate was 62.9 and during sleep was 59.2. The heart rhythm was sinus rhythm. IMPRESSION -- the above polysomnogram documents evidence of: ??1. ?Normal sleep efficiency. ??2. ?Rare apnea was present. ??Present study does not meet the criteria for ?obstructive sleep apnea syndrome. ??3. ?Mild snoring was noted. ??4. ?Given the patient's normal polysomnography, patient subsequently ?underwent a multiple sleep latency the following day. AXIS A: ??Hypersomnolence, 780.54. AXIS B: ??Polysomnography, 45220. ? Diplomate in Sleep Medicine ?([place] Board of ?Psychiatry and Neurology) Dorothy Conway M.D., D.M. AR/me Job #: ??[id number] DD: ??11/17/2014 14:31 TD: ??11/18/2014 11:17 Electronically Authenticated and Edited by: Dorothy Conway MD On 11/24/2014 06:14 PM CDT us Historical Provider SLEEP CENTER ORDERABLES F inal Result HISTORICAL RESULTS documented in this encounter Visit Diagnoses Diagnosis Narcolepsy without cataplexy(347.00) Narcolepsy without cataplexy documented in this encounter Care Teams Security Patrol Officer Relationship Specialty Start Date End Date Jason Whyte MD PCP - General 10/09/13 12/03/14 documented as of this encounter
--- OUTSIDE RECORDS SUMMARY | 2024-08-24 04:36 | XMS_ITS | Encounter Summary ---
Author Organization [facility] Address [address] [place] [address] Care Team Providers Care Correctional Program Specialist Name Role Phone Michael Sherman MD Primary Care Prov ider Reason for Visit * Reason Comments Fatigue 4mo Encounter Details Date Type Department Care Team (Late st Contact Info) Description 02/02/2017 10:00 AM CDT Office Visit [facility] [address] [place] [address] Neil Bates MD [address] [id number] Anxiety (Primary Dx); Dizziness; Heart palpitations Social History Tobacco Use Types Packs/Day Years Used Date Smoking Tobacco: Never Alcohol Use Standard Drinks/Week Comments No 0 (1 standard drink = 0.6 oz pur e alcohol) Comments Unknown Sex and Gender Information Value Date Recorded Sex Assigned at Not on file Legal Sex Female 11:00 AM ANIMAL CARE ASSISTANT Gender Identity Not on file Sexual Orientation Not on file documented as of this encounter Last Filed Vital Signs Vital Sign Reading Time Taken Comments Blood Pressure 110/78 02/02/2017 10:24 AM CDT Pulse 78 02/02/2017 10:24 AM CDT Temperature - - Respiratory Rate 12 02/02/2017 10:24 AM CDT Oxygen Saturation - - Inhaled Oxygen Concentration - - Weight 64 kg (141 lb) 02/02/2017 10:24 AM CDT Height - - Body Mass Index 20.23 09/30/2016 2:32 PM ANIMAL CARE ASSISTANT documented in this encounter Progress Notes * Neil Bates MD - 02/02/2017 10:00 AM CDT [facility] FOLLOW UP 02/02/2017 Chief Complaint Patient presents with ??? Fatigue 4mo 55-year-old female with past medical history of atypical chest pain, recurrent dizziness, palpitations, headache; history of adenocarcinoma lung status post resection. Patient usually follows up with Dr. Epstein. Patient's nonischemic workup for chest [...] with endocrinology, neurology and neurosurgery at [facility]. In light of recurrent episodes of dizziness, patient had implantable structural steel equipment erector on 10/07/2015.No significant arrhythmias have been found at. Patient is here for the follow-up visit. She lives with her 2 teenage sons. Patient states that she gets episodes of palpitations and dizziness when it is sock lining examiner the house. Patient states that she does not have an AC in the house. Denies chest pain, shortness of breath, PND, orthopnea or lower extent he swelling. REVIEW OF SYSTEMS General ROS: negative for - chills, fatigue, fever, malaise, night sweats, weight gain or weight loss Psychological ROS: Positive for anxiety Ophthalmic ROS: negative for - blurry vision, decreased vision, loss of vision or scotomata ENT ROS: negative for - epistaxis, headaches, hearing change, nasal congestion, nasal discharge, sore throat, vertigo or visual changes Allergy and Immunology ROS: negative for - hives, nasal congestion, postnasal drip or seasonal allergies Hematological and Lymphatic ROS: negative for - bleeding problems, blood clots, bruising, fatigue or weight loss Endocrine ROS: negative for - hot flashes, palpitations, polydipsia/polyuria or unexpected weight changes Respiratory ROS: negative for - cough, hemoptysis, orthopnea, shortness of breath, tachypnea or wheezing Cardiovascular ROS: negative for - chest pain, dyspnea on exertion, edema, positive for palpitations and dizziness, no syncope Gastrointestinal ROS: negative for - abdominal pain, appetite loss, blood in stools, constipation, diarrhea, gas/bloating, heartburn, hematemesis, melena or nausea/vomiting Genito-Urinary ROS: negative for - dysuria, erectile dysfunction or hematuria Musculoskeletal ROS: negative for - joint pain, muscle pain or muscular weakness Neurological ROS: negative for - dizziness, gait disturbance, headaches, memory loss, visual changes or weakness Dermatological ROS: negative for dry skin, eczema, pruritus and rash HOME MEDICATIONS Allergies Allergen Reactions ??? Amitriptyline ??? Amoxicillin ??? Carbamazepine Rash Reaction: Rash, ??? Codeine Hives and Rash Reaction: Hives, Skin Rash, ??? Divalproex ??? Doxycycline Other (See comments) Reaction: Pulmonary toxicity, ??? Gabapentin ??? Hydrocodone ??? Hydromorphone ??? Lamotrigine ??? Oxycodone ??? Peanut ??? Penicillins ??? Shellfish Derived ??? Topiramate ??? Valproic Acid Analogues Current Outpatient Prescriptions Medication Sig Dispense Refill ??? aclidinium (TUDORZA) 400 mcg/actuation inhaler Inhale 1 puff 2 (two) times a day. ??? albuterol HFA (PROVENTIL HFA,VENTOLIN HFA) 90 mcg/actuation inhaler Inhale 2 puffs every 6 (six) hours as needed for wheezing. ??? budesonide (PULMICORT) 90 mcg/actuation inhaler Inhale 1 puff 2 (two) times a day. Rinse mouth with water after use to reduce aftertaste and incidence of candidiasis. Do not swallow. ??? albuterol sulfate (PROAIR RESPICLICK) 90 mcg/actuation aerosol powdr breath activated inhale 2 puff by inhalation route every 4 - 6 hours as needed (Patient not taking: Reported on 02/02/2017 ) 0 Inhaler 0 ??? aspirin (ASPIR-81) 81 mg tablet take 1 tablet by oral route every day 0 0 No current facility-administered medications for this visit. LABS AND OTHER DIAGNOSTIC TESTS Lab Results Component Value Date HGB 11.1 (L) 10/26/2016 HCT 35.2 (L) 10/26/2016 MCV 90.3 10/26/2016 No lab exists for component: LABALBU Lab Results Component Value Date HGB 11.1 (L) 10/26/2016 HCT 35.2 (L) 10/26/2016 MCV 90.3 10/26/2016 Chemistry Component Value Date/Time CO2 28 10/26/2016 1723 CREATININE 1.16 (H) 10/26/2016 1723 Component Value Date/Time CALCIUM 9.6 10/26/2016 1723 ALKPHOS 87 10/26/2016 1723 AST 26 10/26/2016 [...] and chamber size. Normal RV systolic functon and chamber size. Moderate LAE. Normal diastolic function. Mild TR, trace MR. Mild prolapse of MV. Dilated IVC. ([facility])) - 04/12/2012 ELECTROPHYSIOLOGY: Holter (No correlation with symptoms, Rare PACs, No correlation with symptoms, ) - 05/25/2012 EVR (Multiple complaints(over 15 episodes) [...] pituitary gland is unchanged. ) - 07/11/2015 PHYSICAL EXAM Vitals: 02/02/17 1024 BP: 110/78 Pulse: 78 Resp: 12 Physical Examination: General appearance - alert, well [...] rashes, no suspicious skin lesions noted ASSESSMENT Diagnoses and all orders for this visit: 1. Anxiety (Primary) 2. Dizziness 3. Heart palpitations PLAN/RECOMMENDATIONS 56-year-old female with past medical history of atypical chest pain, recurrent dizziness, palpitations, headache; history of adenocarcinoma lung status post resection. Previous diagnosis of pituitary mass, workup in progress at [facility]. Previous noninvasive ischemic workup negative. Implantable structural steel equipment erector has not shown any significant arrhythmias yet. Patient was reassured about her cardiac status and previous testing. Periodic interrogation of the implantable structural steel equipment erector. Follow-up in 1 year or sooner if needed. Neil Bates MD documented in this encounter Plan of Treatment Not on file documented as of this encounter Visit Diagnoses Diagnosis Anxiety- Primary Anxiety state, unspecified Dizziness Dizziness and giddiness Heart palpitations Palpitations documented in this encounter Historical Medications * This list may reflect changes made after this encounter. aclidinium (TUDORZA) 400 mcg/actuation inhaler Inhale 1 puff 2 (two) times a day. 0 budesonide (PULMICORT) 90 mcg/actuation inhaler Inhale 1 puff 2 (two) times a day. Rinse mouth with water after use to reduce aftertaste and incidence of candidiasis. Do not swallow. 9 albuterol HFA (PROVENTIL HFA,VENTOLIN HFA) 90 mcg/actuation inhaler Inhale 2 puffs every 6 (six) hours as needed for wheezing. 0 added in this encounter Care Teams Correctional Program Specialist Relationship Specialty Start Date End Date Michael Sherman MD [address] [place] [address] PCP - General 01/28/17 documented as of this encounter
--- OUTSIDE RECORDS SUMMARY | 2024-08-24 04:36 | XMS_ITS | Encounter Summary ---
Author Organization [facility] Healthcare Address [address] [place] [address] Care Team Providers Care Alumni Coordinator Name Role Phone Michael Sherman MD Primary Care Prov ider Encounter Details Date Type Department Care Team (Latest Contact Info) Description 10/26/2016 5:10 PM CDT - 10/26/2016 11:59 PM T Hospital En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
--- OUTSIDE RECORDS SUMMARY | 2024-08-24 04:36 | XMS_ITS | Encounter Summary ---
Author Organization [facility] Facility Care Team Providers Care Software Specialist Name Role Phone Jason Whyte MD Primary Care Provider [phone] Encounter Details Date Type Department Care Team (Late st Contact Info) Description 06/25/2015 - 06/25/2015 11:59 PM DIRECT CUSTOMER SERVICE REPRESENTATIVE [facility] Hypothyroidism; Other disorders of pituitary gland (CMS/HCC); Other disorders of lung; Syncope and collapse Social History Tobacco Use Types Packs/Day Years Used Date Smoking Tobacco: Never Alcohol Use Standard Drinks/Week Comments Yes 0 (1 standard drink = 0.6 oz pur e alcohol) Comments Unknown Sex and Gender Information Value Date Recorded Sex Assigned at Not on file Legal Sex Female 11:00 AM DIRECT CUSTOMER SERVICE REPRESENTATIVE Gender Identity Not on file Sexual Orientation Not on file documented as of this encounter Plan of Treatment Not on file documented as of this encounter Procedures Procedure Name Priority Date/Time Associated Diagnosis Comments SERUM TRIIODOTHYRONINE (T3), FREE Routine 06/25/2015 9:15 AM DIRECT CUSTOMER SERVICE REPRESENTATIVE SERUM THYROXINE (T4), FREE Routine 06/25 9:15 AM DIRECT CUSTOMER SERVICE REPRESENTATIVE SERUM THYROID-STIMULATING HORMONE (TSH) Routine 06/25/2015 9:15 AM DIRECT CUSTOMER SERVICE REPRESENTATIVE SERUM PROLACTIN Routine 06/25/2015 9:15 AM DIRECT CUSTOMER SERVICE REPRESENTATIVE SERUM LUTEINIZING HORMONE (LH) Routine 06/25/2015 9:15 AM DIRECT CUSTOMER SERVICE REPRESENTATIVE SERUM INSULIN-LIKE GROWTH FACTOR 1 (IGF1) Routine 06/25/2015 9:15 AM DIRECT CUSTOMER SERVICE REPRESENTATIVE SERUM FOLLICLE-STIMULATING HORMONE (FSH) Routine 06/25/2015 9:15 AM DIRECT CUSTOMER SERVICE REPRESENTATIVE SERUM DEHYDROEPIANDROSTERONE SULFATE (DHEA-S) Routine 06/25/2015 9:15 AM DIRECT CUSTOMER SERVICE REPRESENTATIVE PLASMA RENIN ACTIVITY Routine 06/25/2015 9:15 AM DIRECT CUSTOMER SERVICE REPRESENTATIVE PLASMA CORTISOL Routine 06/25/2015 9:15 AM DIRECT CUSTOMER SERVICE REPRESENTATIVE PLASMA COMPREHENSIVE METABOLIC PANEL Routine 06/25/2015 9:15 AM DIRECT CUSTOMER SERVICE REPRESENTATIVE PLASMA ALDOSTERONE Routine 06/25/2015 9: 15 AM DIRECT CUSTOMER SERVICE REPRESENTATIVE PLASMA ADRENOCORTICOTROPIC HORMONE (ACTH) Routine 06/25/2015 9:15 AM DIRECT CUSTOMER SERVICE REPRESENTATIVE DISCHARGE LABORATORY CUMULATIVE REPORT 06/25/2015 documented in this encounter Results * Serum thyroid-stimulating hormone (TSH) (06/25/2015 9:15 AM DIRECT CUSTOMER SERVICE REPRESENTATIVE) TSH 2.66 0.35 - 5.50 mcIUnits/m l HISTORICAL RESULTS Comment: Interpretive Data Hyperthyroid: ??<0.1 mcIUnit/mL Hypothyroid: ??>12.0 mcIUnit/mL Current interpretive data was last revised on 00. Serum 06/25/2015 9:15 AM DIRECT CUSTOMER SERVICE REPRESENTATIVE Narrative HISTORICAL RESULTS - 06/25/2015 11:11 AM DIRECT CUSTOMER SERVICE REPRESENTATIVE Client / Account bill? No Client Account Number and Description: us Corina Hennessy LAB BLOOD ORDERABLES Final Resul t HISTORICAL RESULTS * Serum triiodothyronine (T3), free (06/25/2015 9:15 AM DIRECT CUSTOMER SERVICE REPRESENTATIVE) Free T3 2.80 2.30 - 4.20 pg/ml HISTORICAL RESULTS Serum 06/25/2015 9:15 AM DIRECT CUSTOMER SERVICE REPRESENTATIVE Narrative HISTORICAL RESULTS - 06/25/2015 11:11 AM DIRECT CUSTOMER SERVICE REPRESENTATIVE Client / Account bill? No Client Account Number and Description: [employer] LAB BLOOD ORDERABLES Final Resul t Performing Organization Address City/[facility] Co de Phone Number HISTORICAL RESULTS * Serum thyroxine (T4), free (06/25/2015 9:15 AM DIRECT CUSTOMER SERVICE REPRESENTATIVE) Free T4 0.99 0.90 - 1.80 ng/dl HISTORICAL RESULTS Serum 06/25/2015 9:15 AM DIRECT CUSTOMER SERVICE REPRESENTATIVE Narrative HISTORICAL RESULTS - 06/25/2015 11:10 AM DIRECT CUSTOMER SERVICE REPRESENTATIVE Client / Account bill? No Client Account Number and Description: [employer] LAB BLOOD ORDERABLES Final Resul t Performing Organization Address [facility] de Phone Number HISTORICAL RESULTS * Serum insulin-like growth factor 1 (IGF1) (06/25/2015 9:15 AM DIRECT CUSTOMER SERVICE REPRESENTATIVE) Pathologist [facility] Insulin-like growth factor 1 (IGF-1) 203 100 - 250 ng/ml HISTORICAL RESULTS Serum 06/25/2015 9:15 AM DIRECT CUSTOMER SERVICE REPRESENTATIVE Narrative HISTORICAL RESULTS - 06/26/2015 3:51 PM DIRECT CUSTOMER SERVICE REPRESENTATIVE Client / Account bill? No Client Account Number and Description: [employer] LAB BLOOD ORDERABLES Final Resul t Performing Organization Address City/[facility] de Phone Number HISTORICAL RESULTS * Serum dehydroepiandrosterone sulfate (DHEA-S) (06/25/2015 9:15 AM DIRECT CUSTOMER SERVICE REPRESENTATIVE) Pathologist [facility] DHEA-S 164 <15 - 200 mcg/dl HISTORICAL RESULTS Comment: Test Performed by: [place] [address] Orthodontist Vice President: Cruz Pierre II, M.D., Ph.D. Serum 06/25/2015 9:15 AM DIRECT CUSTOMER SERVICE REPRESENTATIVE Narrative HISTORICAL RESULTS - 06/27/2015 4:53 AM DIRECT CUSTOMER SERVICE REPRESENTATIVE Client / Account bill? No Client Account Number and Description: Corina [address] [employer] LAB BLOOD ORDERABLES Final Resul t Performing Organization Address [facility] de Phone Number HISTORICAL RESULTS * Plasma aldosterone (06/25/2015 9:15 AM DIRECT CUSTOMER SERVICE REPRESENTATIVE) Aldosterone 4.9 <=21 ng/dl HISTORI JOIE RESULTS Comment: ADDITIONAL INFORMATION Reference range for patients 11 years and older is based on upright A.M. collection from subjects without sodium restrictions. Test Performed by: [place] [address] Orthodontist Vice President: Cruz Pierre II, M.D., Ph.D. Plasma 06/25/2015 9:15 AM DIRECT CUSTOMER SERVICE REPRESENTATIVE Narrative HISTORICAL RESULTS - 06/28/2015 10:20 AM DIRECT CUSTOMER SERVICE REPRESENTATIVE Client / Account bill? No Client [facility] Number and Description: [facility] Final Resul t Performing Organization Address [facility] de Phone Number HISTORICAL RESULTS * Plasma renin activity (06/25/2015 9:15 AM DIRECT CUSTOMER SERVICE REPRESENTATIVE) Renin 3.6 ng/ml/hr HISTORICAL RESULTS Comment: REFERENCE VALUE (Peripheral vein specimen) Na-deplete, upright: ??Mean: 5.9 ??Range: 2.9-10.8 Na-replete, upright: ??Mean: 1.0 ??Range: < or =0.6-3.0 ADDITIONAL INFORMATION Testing performed by Liquid Chromatography-Tandem Mass Spectrometry (LC-MS/MS). Test Performed by: [place] [address] Orthodontist Vice President: Cruz Pierre II, M.D., Ph.D. Plasma 06/25/2015 9:15 AM DIRECT CUSTOMER SERVICE REPRESENTATIVE Narrative HISTORICAL RESULTS - 06/30/2015 6:13 AM DIRECT CUSTOMER SERVICE REPRESENTATIVE Client / Account bill? No Client Account Number and Description: [facility] BLOOD ORDERABLES Final Resul t Performing Organization Address [facility] Co de Phone Number HISTORICAL RESULTS * Plasma adrenocorticotropic hormone (ACTH) (06/25/2015 9:15 AM DIRECT CUSTOMER SERVICE REPRESENTATIVE) ACTH 29 0 - 46 pg/ml HISTORICAL RESULTS Plasma 06/25/2015 9:15 AM DIRECT CUSTOMER SERVICE REPRESENTATIVE Narrative HISTORICAL RESULTS - 06/27/2015 7:31 AM DIRECT CUSTOMER SERVICE REPRESENTATIVE Client / Account bill? No Client Account Number and Description: [facility] BLOOD ORDERABLES Final Resul t Performing Organization Address [facility] de Phone Number HISTORICAL RESULTS * Serum luteinizing hormone (LH) (06/25/2015 9:15 AM DIRECT CUSTOMER SERVICE REPRESENTATIVE) LH 44.8 IUnits/L HISTORICAL RESULTS Comment: Interpretive Data Males: ??Adults: ? 1.5 - 9.3 ?? IUnits/L Females: ?Follicular ?1.9 - 12.5 ??IUnits/L ??Luteal: ? 0.5 - 16.9 ??IUnits/L ??Midcycle: ? 8.7 - 76.3 ??IUnits/L ??Postmenopausal 15.9 - 54.0 ??IUnits/L This test was developed and its performance characteristics determined by the [facility] in a manner consistent with CLIA requirements. ??This test has not been cleared or approved by the U.S. Food and Drug Administration. ?? Current interpretive data was last revised on 2011. Serum 06/25/2015 9:15 AM DIRECT CUSTOMER SERVICE REPRESENTATIVE Narrative HISTORICAL RESULTS - 06/25/2015 11:31 AM DIRECT CUSTOMER SERVICE REPRESENTATIVE Client / Account bill? No Client Account Number and Description: [facility] B[facility] Final Resul t Performing Organization Address [facility] de Phone Number HISTORICAL RESULTS * Serum follicle-stimulating hormone (FSH) (06/25/2015 9:15 AM DIRECT CUSTOMER SERVICE REPRESENTATIVE) FSH 147.4 IUnits/L HISTORICAL RESULTS Comment: Interpretive Data Male: Adults: ?1.4 - 18.0 IUnits/L Female: ?? Follicular: ?2.5 - 10.2 IUnits/L Midcycle: ?3.4 - 33.4 IUnits/L Luteal: ?1.5 - 9.1 IUnits/L Postmenopausal: 23.0 - 116.3 IUnits/L Current interpretive data was last revised 2011. Serum 06/25/2015 9:15 AM DIRECT CUSTOMER SERVICE REPRESENTATIVE Narrative HISTORICAL RESULTS - 06/25/2015 11:31 AM DIRECT CUSTOMER SERVICE REPRESENTATIVE Client / Account bill? No Client Account Number and Description: [facility] BLOOD ORDERABLES Final Resul t Performing Organization Address [facility] de Phone Number HISTORICAL RESULTS * Plasma comprehensive metabolic panel (06/25/2015 9:15 AM DIRECT CUSTOMER SERVICE REPRESENTATIVE) Sodium 144 135 - 145 mmol/L HISTORICAL RESULTS K, pl 4.1 3.3 - 4.9 mmol/L HISTORICAL RESULTS Chloride 105 97 - 110 mmol/L HISTORICAL RESULTS CO2 29 22 - 32 mmol/L HISTORICAL RESULTS A. gap 10 0 - 16 mmol/L HISTORICAL RESULTS Glucose 90 70 - 199 mg/dl HISTORICAL RESULTS BUN 13 8 - 25 mg/dl HISTORICAL RESULTS Creatinine 0.83 0.60 - 1.10 mg/dl HISTORICAL RESULTS Protein, pl 7.7 6.5 - 8.5 g/dl HISTORICAL RESULTS Alb 4.9 3.6 - 5.0 g/dl HISTORICAL RESULTS Bilirubin 0.6 0.3 - 1.1 mg/dl HISTORICAL RESULTS Alk phos 81 38 - 126 Units/L HISTORICAL RESULTS AST 24 11 - 47 Units/L HISTORICAL RESULTS ALT 18 7 - 53 Units/L HISTORICAL RESULTS Calcium 10.3 8.6 - 10.3 mg/dl HISTORICAL RESULTS Plasma 06/25/2015 9:15 AM DIRECT CUSTOMER SERVICE REPRESENTATIVE Narrative HISTORICAL RESULTS - 06/25/2015 11:34 AM DIRECT CUSTOMER SERVICE REPRESENTATIVE Client / Account bill? No Client Account Number and Description: [employer] LAB BLOOD ORDERABLES Final Resul t Performing Organization Address [facility] de Phone Number HISTORICAL RESULTS * Serum prolactin (06/25/2015 9:15 AM DIRECT CUSTOMER SERVICE REPRESENTATIVE) Prolactin 7.1 2.8 - 29.0 ng/ml HISTORICAL RESULTS Comment: Interpretive Data Male: ? 2.1 - 18.0 ng/mL ? Female: ?? Non-: ?2.8 - 29.0 ng/mL : ?9.7 - 208.5 ng/mL Postmenopausal: ??1.8 - 20.3 ng/mL This test was developed and its performance characterisitics determined by the [facility] in a manner consistent with CLIA requirements. This test has not been cleared or approved by the U.S. Food and Drug Administration. Current interpretive data was last revised 2011. Serum 06/25/2015 9:15 AM DIRECT CUSTOMER SERVICE REPRESENTATIVE Narrative HISTORICAL RESULTS - 06/25/2015 11:31 AM DIRECT CUSTOMER SERVICE REPRESENTATIVE Client / Account bill? No Client Account Number and Description: [employer] LAB BLOOD ORDERABLES Final Resul t Performing Organization Address City/[facility] de Phone Number HISTORICAL RESULTS * Plasma cortisol (06/25/2015 9:15 AM DIRECT CUSTOMER SERVICE REPRESENTATIVE) Cortisol 8.0 3.7 - 19.4 mcg/dl HISTORICAL RESULTS Comment: Interpretive Data Normal Range: ??3.7 - 19.4 mcg/dL; ??Evening: ??Half of morning value. ?? This analyte undergoes marked diurnal variation. ??Ranges indicated apply to morning specimens. ?? Current interpretive data was last revised 2013. Plasma 06/25/2015 9:15 AM DIRECT CUSTOMER SERVICE REPRESENTATIVE Narrative HISTORICAL RESULTS - 06/25/2015 11:13 AM DIRECT CUSTOMER SERVICE REPRESENTATIVE Client / Account bill? No Client Account Number and Description: us Corina Hennessy LAB BLOOD ORDERABLES Final Resul t HISTORICAL RESULTS * DISCHARGE LABORATORY CUMULATIVE REPORT (06/25/2015) Narrative 06/25/2015 Ordered by an unspecified provider. Historical Provider LAB BLOOD ORDERABLES Krystyna l Result documented in this encounter Visit Diagnoses Diagnosis Hypothyroidism Unspecified hypothyroidism Other disorders of pituitary gland (HCC) Other disorders of lung Syncope and collapse documented in this encounter Care Teams Software Specialist Relationship Specialty Start Date End Date Jason Whyte MD PCP - General 03/14/15 10/25/16 documented as of this encounter
--- OUTSIDE RECORDS SUMMARY | 2024-08-24 04:36 | XMS_ITS | Encounter Summary ---
Author Organization [facility] Healthcare Address [address] [place] [address] Care Team Providers Care Stock Checker Name Role Phone Michael Sherman MD Primary Care Prov ider Reason for Referral * Diagnostic Imaging (Routine) - Closed Specialty Diagnoses / Procedures Referred By Chelsy herbert Referred To Contact Radiology Diagnoses Pituitary adenoma (HCC) Procedures MRI Pituitary including Brain W WO Contrast Kush Walls MD Phone: tel: fax: [address] [phone] Referral ID Status Reason Start Date Expiration Date Visits Re quested Visits Authorized [id number] Closed 08/07/2019 02/15/2021 1 1 UCTION TEAM MANAGER Reason for Visit * Diagnostic Imaging (Routine) - Closed Specialty Diagnoses / Procedures Referred By Contfinn t Referred To Contact Radiology Diagnoses Pituitary adenoma (HCC) Procedures MRI Pituitary including Brain W WO Contrast Kush Walls MD Phone: tel: fax: [address] [phone] Referral ID Status Reason Start Date Expiration Date Visits Re quested Visits Authorized [id number] Closed 08/07/2019 02/15/2021 1 1 Encounter Details Date Type Department Care Team (Latest Contact Info) Description 10/05/2019 4:21 PM PRODUCTION TEAM MANAGER - 10/05/2019 11:59 PM PRODUCTION TEAM MANAGER Hospital Encounter [facility] [address] [place] [address] Kush Walls MD [address] [address] Pituitary adenoma (CMS/HCC) Discharge Disposition: Discharge to home or self care Social History Tobacco Use Types Packs/Day Years Used Date Smoking Tobacco: Never Alcohol Use Standard Drinks/Week Comments No 0 (1 standard drink = 0.6 oz pur e alcohol) Comments No Sex and Gender Information Value Date Recorded Sex Assigned at Not on file Legal Sex Female 11:00 AM PRODUCTION TEAM MANAGER Gender Identity Not on file Sexual [...] Do not swallow. 1 Inhaler 08/18/2018 0 loratadine (CLARITIN) 10 mg tablet Take 10 [...] Diagnosis Comments MRI BRAIN W WO CONTRAST (PITUITARY) Schedule Routine, Read Routine (OP Routine) 10/05/2019 6:39 PM PRODUCTION TEAM MANAGER Pituitary adenoma (CMS/HCC) documented in this encounter Results * MRI Pituitary including Brain W WO Contrast (10/05/2019 6:39 PM PRODUCTION TEAM MANAGER) Anatomical Region Laterality Modality Head and Neck N/A Magnetic Resonan ce 10/06/2019 8:3 3 AM PRODUCTION TEAM MANAGER Impressions 10/06/2019 8:36 AM PRODUCTION TEAM MANAGER Unchanged uniformly enhancing, prominent pituitary gland, which is again favored to represent anatomic variation rather than a pituitary adenoma given long-term stability. Dictated by: Jason Victoria M.D. The radiology attending physician has personally reviewed this study, and had reviewed and/or edited this written report and agrees with it. Electronically signed by: Jessica Dang M.D. Narrative 10/06/2019 8:36 AM PRODUCTION TEAM MANAGER EXAMINATION: Magnetic resonance imaging (MRI) of the [...] by: Jessica Dang M.D. Kush Walls MD IM MRI PROCEDURES Final Re sult documented in this encounter Visit Diagnoses Diagnosis Pituitary adenoma (HCC) Benign neoplasm of pituitary gland and craniopharyngeal duct (pouch) documented in this encounter Administered Medications Inactive Administered Medications - up to 3 most recent administrations Medication Order MAR Action Action Date Dose Rate Site gadoterate meglumine (DOTAREM) 0.5 mmol/mL injection 12 mL 12 mL, intravenous, Once in imaging, contrast, Starting on Tue10/05/19 at 1823, For 1 dose Given 10/05/2019 6:23 PM PRODUCTION TEAM MANAGER 12 mL documented in this encounter Orders Medications Ordered That Velasquez ht Not Have Been Administered Count Last Ordered Date First Ordered Date gadoterate meglumine (DOTARE M) 0.5 mmol/mL injection 12 mL 1 10/05/2019 documented in this encounter Care Teams Stock Checker Relationship Specialty Start Date End Date Michael Sherman MD [address] [place] [address] PCP - General 01/28/17 documented as of this encounter
--- OUTSIDE RECORDS SUMMARY | 2024-08-24 04:36 | XMS_ITS | Encounter Summary ---
Author Organization [facility] Facility Care Team Providers Care Keno Manager Name Role Phone Jason Whyte MD Primary Care Provider [phone] Encounter Details Date Type Department Care Team (Late st Contact Info) Description 07/11/2015 - 07/11/2015 11:59 PM RESOURCE CONSERVATIONIST Hospital Encounter [facility] Corina Martinez Other disorders of pituitary gland (CMS/HCC) Social History Tobacco Use Types Packs/Day Years Used Date Smoking Tobacco: Never Alcohol Use Standard Drinks/Week Comments Yes 0 (1 standard drink = 0.6 oz pur e alcohol) Comments Unknown Sex and Gender Information Value Date Recorded Sex Assigned at Not on file Legal Sex Female 11:00 AM RESOURCE CONSERVATIONIST Gender Identity Not on file Sexual Orientation Not on file documented as of this encounter Plan of Treatment Not on file documented as of this encounter Procedures Procedure Name Priority Date/Time Associated Diagnosis Comments MRI BRAIN W WO CONTRAST Routine 07/11/2015 5:00 PM RESOURCE CONSERVATIONIST documented in this encounter Results * MRI Brain W WO Contrast (07/11/2015 5:00 PM RESOURCE CONSERVATIONIST) Anatomical Region Laterality Modality Head and Neck N/A Magnetic Resonan ce 07/11/2015 5:00 PM RESOURCE CONSERVATIONIST Narrative 07/12/2015 3:02 PM RESOURCE CONSERVATIONIST BEVERLEY NORRIS M.D. BREA CAO M.D. FINAL REPORT The radiology attending physician has personally reviewed this study, and has reviewed and/or edited this written report and agrees with it. ACC# ??Date Time ??Exam [id number] Jul 11, 2015 17:00:00 [id number] MRI Brain wo&with contrast EXAMINATION: ?? Magnetic resonance imaging (MRI) of the brain and brainstem without and with contrast HISTORY: Pituitary enlargement seen on MRI dated 08/10/2012 TECHNIQUE: Multiplanar multi-weighted MRI of the brain and brainstem was performed without and with intravenous contrast using the pituitary protocol. This included acquisitions showing dynamic contrast enhancement of the pituitary in the coronal plane. Contrast information: 10 mL Dotarem COMPARISON: 08/10/2012 FINDINGS: There is a 1.1 (transverse) x 1.1 (craniocaudal) x 1.0 cm (anteroposterior) delayed enhancing lesion that diffusely involves the pituitary gland. The morphology of the pituitary gland is unchanged. The pituitary stalk is midline. There is no involvement of the cavernous sinuses or the optic chiasm. The orbits are normal. The scalp and calvarium [...] carotid arteries and basilar artery. IMPRESSION: ?? 1. 1.1 x 1.1 x 1 cm delayed enhancing lesion replacing the pituitary gland. 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 Overall morphology of the pituitary gland is unchanged. Requested By: Dictated By: ?? BREA CAO M.D. ??on Jul 11 2015 ??6:36P This document has been electronically signed by: BEVERLEY NORRIS M.D. on Jul 12 2015 ??3:01P [id number] Procedure Note Provider, MD Marisabel - 12/15/2016 BEVERLEY NORRIS M.D. BREA CAO M.D. FINAL REPORT The radiology attending physician has personally reviewed this study, and has reviewed and/or edited this written report and agrees with it. ACC# Date Time Exam [id number] Jul 11, 2015 17:00:00 [id number] MRI Brain wo&with contrast EXAMINATION: Magnetic resonance imaging (MRI) of the brain and brainstem without and with contrast HISTORY: Pituitary enlargement seen on MRI dated 08/10/2012 TECHNIQUE: Multiplanar multi-weighted MRI of the brain and brainstem was performed without and with intravenous contrast using the pituitary protocol. This included acquisitions showing dynamic contrast enhancement of the pituitary in the coronal plane. Contrast information: 10 mL Dotarem COMPARISON: 08/10/2012 FINDINGS: There is a 1.1 (transverse) x 1.1 (craniocaudal) x 1.0 cm (anteroposterior) delayed enhancing lesion that diffusely involves the pituitary gland. The morphology of the pituitary gland is unchanged. The pituitary stalk is midline. There is no involvement of the cavernous sinuses or the optic chiasm. The orbits are normal. The scalp and calvarium [...] the carotid arteries and basilar artery. IMPRESSION: 1. 1.1 x 1.1 x 1 cm delayed enhancing lesion replacing the pituitary gland. 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 Overall morphology of the pituitary gland is unchanged. Requested By: Dictated By: BREA CAO M.D. on Jul 11 2015 6:36P This document has been electronically signed by: BEVERLEY NORRIS M.D. on Jul 12 2015 3:01P [id number] us Historical Provider MD HUSSEIN MRI PROCEDURES Final Result documented in this encounter Visit Diagnoses Diagnosis Other disorders of pituitary gland (HCC) documented in this encounter Care Teams Keno Manager Relationship Specialty Start Date End Date Jason Whyte MD PCP - General 03/14/15 10/25/16 documented as of this encounter
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
--- OUTSIDE RECORDS SUMMARY | 2024-08-24 04:36 | XMS_ITS | Encounter Summary ---
Author Organization [facility] Address [address] [address] Care Team Providers Care Transport Corps Officer Name Role Phone Michael Sherman MD Primary Care Prov ider Reason for Visit * Cardiology (Routine) - Closed Specialty Diagnoses / Procedures Referred By Contfinn herbert Referred To Contact Diagnoses Palpitations Procedures DEVICE CHECK - REMOTE Neil Bates MD Phone: tel: fax: Referral ID Status Reason Start Date Expiration Date Visits Re quested Visits Authorized [id number] Closed 02/19/2017 08/18/2017 1 1 Encounter Details Date Type Department Care Team (Latest Contact Info) Description 04/18/2017 8:00 AM CDT Ancillary Procedure [facility] [address] [place] [phone] Palpitations; Status post placement of implantable loop recorder Social History Tobacco Use Types Packs/Day Years Used Date Smoking Tobacco: Never Alcohol Use Standard Drinks/Week Comments No 0 (1 standard drink = 0.6 oz pur e alcohol) Comments Unknown Sex and Gender Information Value Date Recorded Sex Assigned at Not on file 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
--- OUTSIDE RECORDS SUMMARY | 2024-08-24 04:36 | XMS_ITS | Encounter Summary ---
Author Organization [facility] Healthcare Address [address] [place] [address] Care Team Providers Care Whitesmith Name Role Phone Michael Sherman MD Primary Care Prov ider Encounter Details Date Type Department Care Team (Latest Contact Info) Description 08/17/2018 8:21 PM MAINTENANCE ENGINEER OIL FIELD - 08/17/2018 11:23 PM MAINTENANCE ENGINEER OIL FIELD Hospital Encounter [facility] Radiology [address] [place] [address] [place] [address] [place] [address] Discharge Disposition: Discharge to home or self care Social History Tobacco Use Types Packs/Day Years Used Date Smoking Tobacco: Never Alcohol Use Standard Drinks/Week Comments No 0 (1 standard drink = 0.6 oz pur e alcohol) Comments No Sex and Gender Information Value Date Recorded Sex Assigned at Not on file Legal Sex Female 11:00 AM MAINTENANCE ENGINEER OIL FIELD Gender Identity Not on file Sexual Orientation [...] incidence of candidiasis. Do not swallow. 9 budesonide (PULMICORT) 90 mcg/actuation inhaler Inhale 1 [...] Procedure Name Priority Date/Time Associated Diagnosis Comments XR CHEST PA LATERAL 2 VIEWS ED 08/17/2018 8:25 PM MAINTENANCE ENGINEER OIL FIELD documented in this encounter Results * XR Chest Pa Lateral 2 Vw (08/17/2018 8:25 PM MAINTENANCE ENGINEER OIL FIELD) Anatomical Region Laterality Modality Body, Chest N/A Computed Radiogr aphy 08/17/2018 8:41 PM MAINTENANCE ENGINEER OIL FIELD Impressions 08/18/2018 10:54 AM MAINTENANCE ENGINEER OIL FIELD A loop recorder overlies left hemithorax. ??There is old granulomatous disease. ??Mild right hemidiaphragm elevation is unchanged. ??Lungs are otherwise clear. ??No focal consolidation, pleural effusion or pneumothorax. ??Cardiothymic silhouette is unchanged. ??There is mild thoracic levoscoliosis and moderate lumbar dextroscoliosis. Dictated by: Mars Gupta M.D. Electronically signed by: Kareen Perez M.D. Narrative 08/18/2018 10:54 AM MAINTENANCE ENGINEER OIL FIELD EXAMINATION: XR CHEST PA LATERAL 2 VIEWS [...] Mahan MD IMG XR PROCEDURES Final Result documented in this encounter Visit Diagnoses Not on filedocumented in this encounter Care Teams Whitesmith Relationship Specialty Start Date End Date Michael Sherman MD [address] [place] [address] PCP - General 01/28/17 documented as of this encounter
--- OUTSIDE RECORDS SUMMARY | 2024-08-24 04:36 | XMS_ITS | Encounter Summary ---
Author Organization [facility] Facility Care Team Providers Care Hris Manager Name Role Phone Jason Whyte MD Primary Care Provider [phone] Encounter Details Date Type Department Care Team (Late st Contact Info) Description 05/10/2016 7:00 AM CDT - 05/10/2016 11:59 PM T [facility] [address] [facility] [address] [place] [address] Social History Tobacco Use Types Packs/Day Years Used Date Smoking Tobacco: Never Alcohol Use Standard Drinks/Week Comments No 0 (1 standard drink = 0.6 oz pur e alcohol) Comments Unknown Sex and Gender Information Value Date Recorded Sex Assigned at Not on file Legal Sex Female 11:00 AM BLOOD TESTER FOWL Gender Identity Not on file Sexual Orientation [...] on filedocumented in this encounter Care Teams Hris Manager Relationship Specialty Start Date End Date Jason Whyte MD PCP - General 03/14/15 10/25/16 documented as of this encounter
--- OUTSIDE RECORDS SUMMARY | 2024-08-24 04:37 | XMS_ITS | Encounter Summary ---
Author Organization [facility] Facility Care Team Providers Care Brick Wheeler Name Role Phone Jason Whyte MD Primary Care Provider [phone] Encounter Details Date Type Department Care Team (Late st Contact Info) Description 09/17/2010 - 09/17/2010 11:59 PM MANAGEMENT PROFESSIONAL Hospital Encounter [facility] Alberto Wray MD [address] [place] [id number] Other genetic screening Social History Tobacco Use Types Packs/Day Years Used Date Smoking Tobacco: Never Assessed Comments Unknown Sex and Gender Information Value Date Recorded Sex Assigned at Not on file Legal Sex Female 11:00 AM MANAGEMENT PROFESSIONAL Gender Identity Not on file Sexual Orientation Not on file documented as of this encounter Plan of Treatment Not on file documented as of this encounter Visit Diagnoses Diagnosis Other genetic screening documented in this encounter Care Teams Brick Wheeler Relationship Specialty Start Date End Date Jason Whyte MD PCP - General 01/22/10 12/09/11 documented as of this encounter
--- OUTSIDE RECORDS SUMMARY | 2024-08-24 04:37 | XMS_ITS | Encounter Summary ---
Author Organization [facility] Healthcare Address [address] [place] [address] Care Team Providers Care Portuguese Tutor Name Role Phone Jason Whyte MD Primary Care Provider [phone] Encounter Details Date Type Department Care Team (Late st Contact Info) Description 08/21/2012 2:31 PM SEALING MACHINE OPERATOR - 08/21/2012 5:50 PM SEALING MACHINE OPERATOR Hospital Encounter [facility] CLINCON[facility] Sharon, Ranjan Farr MD [address] [place] [id number] Reaction to spinal or lumbar puncture; Aspiration of fluid as the cause of abnormal reaction of patient, or of later complication Social History Tobacco Use Types Packs/Day Years Used Date Smoking Tobacco: Never Assessed Comments Unknown Sex and Gender Information Value Date Recorded Sex Assigned at Not on file Legal Sex Female 11:00 AM SEALING MACHINE OPERATOR Gender Identity Not on file Sexual Orientation Not on file documented as of this encounter Plan of Treatment Not on file documented as of this encounter Procedures Procedure Name Priority Date/Time Associated Diagnosis Comments SERUM COMPREHENSIVE METABOLIC PANEL Routine 08/21/2012 2:50 PM SEALING MACHINE OPERATOR BLOOD WBC CELL MORPHOLOGIC EXAM, AUTO Routine 08/21/2012 2:50 PM SEALING MACHINE OPERATOR BLOOD CELL COUNT (CBC) Routine 3 2:50 PM SEALING MACHINE OPERATOR DISCHARGE LABORATORY CUMULATIVE REPORT Routine 08/21/2012 12:00 AM SEALING MACHINE OPERATOR documented in this encounter Results * Blood cell count (CBC) (08/21/2012 2:50 PM SEALING MACHINE OPERATOR) WBC 6.4 4.0 - 10.5 K/cumm HISTORICAL RESULTS RBC 4.49 4.20 - 5.40 M/cumm HISTORICAL RESULTS Hgb 13.3 12.0 - 16.0 g/dl HISTORICAL RESULTS Hct 41.2 37.0 - 47.0 % HISTORICAL RESULTS MCV 91.8 77.0 - 97.0 fl HISTORICAL RESULTS MCH 29.6 23.0 - 34.0 pg HISTORICAL RESULTS MCHC 32.3 32.0 - 36.0 g/dl HISTORICAL RESULTS Rdw 13.8 11.5 - 14.5 % HISTORICAL RESULTS Platelets 192 150 - 451 K/cumm HISTORICAL RESULTS MPV 9.9 7.4 - 10.4 fl HISTORICAL RESULTS Blood specimen (specimen) 08/21/2012 2:50 PM SEALING MACHINE OPERATOR us Ranjan Cordova MD LAB BLOOD ORDERABLE S Final Result HISTORICAL RESULTS * (ABNORMAL) Blood WBC cell morphologic exam, auto (08/21/2012 2:50 PM SEALING MACHINE OPERATOR) Lymphocytes 15.7(L) 25.0 - 33.0 % HISTORICAL RESULTS Monos 5.6 1.0 - 13.0 % HISTORICAL RESULTS Neutrophils 77.0(H) 54.0 - 69.0 % HISTORICAL RESULTS Eosinophils 0.6 0.0 - 10.0 % HISTORICAL RESULTS Basophils 0.9 0.0 - 1.0 % HISTORICAL RESULTS Young granulocytes, % 0.2 % HISTORICAL RESULTS Lymphocytes, abs 1.0 K/cumm HIS TORICAL RESULTS Monocytes, absolute 0.4 K/cumm HISTORICAL RESULTS Neutrophils, abs 5.0 K/cumm HIS TORICAL RESULTS Eosinophils, abs 0.0 cells/cumm HI STORICAL RESULTS Basophils, abs 0.1 K/cumm HISTO RICAL RESULTS Young granulocyte 0 K/cumm HISTORICAL RESULTS Blood specimen (specimen) 08/21/2012 2:50 PM SEALING MACHINE OPERATOR Ranjan Cordova MD LAB BLOOD ORDERABLE S Final Result HISTORICAL RESULTS * (ABNORMAL) Serum comprehensive metabolic panel (08/21/2012 2:50 PM SEALING MACHINE OPERATOR) BUN 9.0 6.0 - 23.0 mg/dl HISTORICAL RESULTS Sodium 143 134 - 143 mmol/L HISTORICAL RESULTS Potassium, sr 3.8 3.4 - 5.0 mmol/L HISTORICAL RESULTS Chloride 107 99 - 108 mmol/L HISTORICAL RESULTS CO2 29 23 - 32 mmol/L HISTORICAL RESULTS Glucose, fasting 109 70 - 110 mg/dl HISTORICAL RESULTS Creatinine 1.02 0.60 - 1.30 mg/dl HISTORICAL RESULTS Comment: eGFR:60 ml/min/1.73sq.m if non -[place]wand[place]. eGFR: >70 ml/min/1.73sq.m if -Rwandan. AVE GFR for 50-59 yr. age group: ??93 ml/min/1.73sq.m Calculated using MDRD Equation BUN/creat ratio 9(L) 10 - 20 HIST ORICAL RESULTS A. gap 10 7 - 14 mmol/L HISTORICAL RESULTS Protein, sr 7.6 6.4 - 8.0 g/dl HISTORICAL RESULTS Alb 4.3 3.3 - 4.5 g/dl HISTORICAL RESULTS Alb/glob ratio 1.3 1.1 - 1.8 HISTO RICAL RESULTS Calcium 8.8 8.6 - 9.8 mg/dl HISTORICAL RESULTS Bilirubin 0.6 0.0 - 1.1 mg/dl HISTORICAL RESULTS Alk phos 86 44 - 125 Units/L HISTORICAL RESULTS AST 11 4 - 32 Units/L HISTORICAL RESULTS ALT 33 16 - 66 Units/L HISTORICAL RESULTS Serum 08/21/2012 2:50 PM SEALING MACHINE OPERATOR Ranjan Cordova MD LAB BLOOD ORDERABLE S Final Result HISTORICAL RESULTS * Discharge Laboratory Cumulative Report (08/21/2012 12:00 AM SEALING MACHINE OPERATOR) 08/21/2012 Narrative HISTORICAL RESULTS - 08/22/2012 12:24 AM SEALING MACHINE OPERATOR Patient No: [id number] ? [facility] Patient Name: YANE FAGAN ? [facility] Age: 52 YRS ?: 1960 ?Sex:F ?[address] )[id number] ?? Adm Dt: 08/21/2012 ?[place], [place] ??[address] Created: 08/22/2012 ??0024 ?? Pt. Type: E ? Discharge Dt: 08/21/2012 ? Pathologists: Anabel Toledo MD Admit Attend : RANJAN CORDOVA MD ? BLOOD CELL COUNTS ?Collection Date: ?08/21/12 ?Collection Time: ?1450 ? Ref Range: ?? Units: [4.00-10.50] /CMM ? WBC X 10^3 ?6.44 [4.20-5.40] ??/CMM ? RBC X 10^6 ?4.49 [12.0-16.0] ??G/DL ? HGB ? 13.3 [37.0-47.0] ??% ?HCT ? 41.2 [77.0-97.0] ??FL ? MCV ? 91.8 [23.0-34.0] ??PG ? MCH ? 29.6 [32.0-36.0] ??% ?MCHC ?32.3 [11.5-14.5] ??% ?RDW ? 13.8 [150-451] ?? /CMM ? PLT X 10^3 ? 192 ?BLOOD CELL DIFFERENTIAL ?Collection Date: ?08/21/12 ?Collection Time: ?1450 ? Ref Range: ?? Units: [54.0-69.0] ??% ?NEUTROPHILS ? 77.0 H [25.0-33.0] ??% ?LYMPHOCYTES ? 15.7 L [1.0-13.0] ??% ?MONOCYTES ?5.6 [0.0-10.0] ??% ?EOSINOPHILS ?0.6 [0.0-1.0] ?? % ?BASOPHILS ?0.9 ? /CMM ? A LYMPHOCYTE ? 1.0 ? % ?IMM GRAN % ? 0.2 ? /CMM ? A IMM GRAN ? 0.1 ? /CMM ? A MONOCYTE ? 0.4 ? /CMM ? A NEUTROPHIL ? 5.0 ? /CMM ? A EOSINOPHIL ? 0.0 ? /CMM ? A BASOPHIL ? 0.1 Footnotes and Symbols: L = Low, H = High ?? CONTINUED ?Page: ?? 1 Patient No: [id number] ? [facility] Patient Name: YANE FAGAN ? [facility] Age: 52 YRS ?: 1960 ?Sex:F ?[address] )[id number] ?? Adm Dt: 08/21/2012 ?[place], [place] ??[address] Created: 08/22/2012 ??0024 ?? Pt. Type: E ? Discharge Dt: 08/21/2012 ? Pathologists: Anabel Toledo MD Admit Attend Dr: RANJAN CORDOVA MD ? GENERAL CHEMISTRY ?Collection Date: ?08/21/12 ?Collection Time: ?1450 ? Ref Range: ?? Units: [134-143] ?? MMOL/L ? SODIUM ? 143 [3.4-5.0] ?? MMOL/L ? POTASSIUM ?3.8 [99.0-108.0] MMOL/L ? CHLORIDE ? 107.0 [23.0-32.0] ??MMOL/L ? TOTAL CO2 ? 29.4 ?? [7-14] ?MMOL/L ? ANION GAP ? 10 ??[70-110] ?? MG/DL ?GLUCOSE FASTING ?109 [6.4-8.0] ?? G/DL ? TOTAL PROTEIN ?7.6 [3.3-4.5] ?? G/DL ? ALBUMIN ?4.3 [1.1-1.8] ?A/G RATIO ?1.3 [8.6-9.8] ?? MG/DL ?CALCIUM ?8.8 [0.0-1.1] ?? MG/DL ?BILI TOTAL ? 0.6 ??[44-125] ?? U/L ?ALK PHOS ?86 ?? [4-32] ?U/L ?AST(SGOT) ? 11 ??[16-66] ?U/L ?ALT(SGPT) ? 33 [6.0-23.0] ??MG/DL ?BUN ?9.0 ??[10-20] ? B/C RATIO ?9 L [0.60-1.30] ??MG/DL ?CREATININE ?1.02 f ?08/21/12 1450 eGFR:60 ml/min/1.73sq.m if non -Rwandan. eGFR: >70 ml/min/1.73sq.m if -Rwandan. AVE GFR for 50-59 yr. age group: ??93 ml/min/1.73sq.m Calculated using MDRD Equation FOOTNOTE ADDED ON ?? 08/21/12 ?? AT 1608 BY 999 Footnotes and Symbols: L = Low, f = Footnote ?? END OF CHART ? Page: ?? 2 us Historical Provider LAB BLOOD ORDERABLES Krystyna swann Result HISTORICAL RESULTS documented in this encounter Visit Diagnoses Diagnosis Reaction to spinal or lumbar puncture Aspiration of fluid as the cause of abnormal reaction of patient, or of later complication documented in this encounter Care Teams Portuguese Tutor Relationship Specialty Start Date End Date Jason Whyte MD PCP - General 12/10/11 01/08/13 documented as of this encounter
--- OUTSIDE RECORDS SUMMARY | 2024-08-24 04:37 | XMS_ITS | Encounter Summary ---
Author Organization [facility] Facility Care Team Providers Care Sephora Product Consultant Name Role Phone Jason Whyte MD Primary Care Provider [phone] Encounter Details Date Type Department Care Team (Latest Contact Info) Description 02/09/2010 1:59 PM CDT Hospital Encounter [facility] CLINCONV Alberto Wetzel MD [address] [place] [address] Malignant neoplasm of bronchus and lung (HCC) Social History Tobacco Use Types Packs/Day Years Used Date Smoking Tobacco: Never Assessed Comments Unknown Sex and Gender Information Value Date Recorded Sex Assigned at Not on file Legal Sex Female 11:00 AM GOLF SALES ASSOCIATE Gender Identity Not on file Sexual Orientation Not on file documented as of this encounter Plan of Treatment Not on file documented as of this encounter Visit Diagnoses Diagnosis Malignant neoplasm of bronchus and lung (HCC) documented in this encounter Care Teams Sephora Product Consultant Relationship Specialty Start Date End Date Jason Whyte MD PCP - General 01/22/10 12/09/11 documented as of this encounter
--- OUTSIDE RECORDS SUMMARY | 2024-08-24 04:37 | XMS_ITS | Encounter Summary ---
Author Organization [facility] Healthcare Address [address] [place] [address] Care Team Providers Care Manager Of Manufacturing Name Role Phone Jason Whyte MD Primary Care Provider [phone] Encounter Details Date Type Department Care Team (Late st Contact Info) Description 08/10/2012 2:41 PM RETAIL ACCOUNT REPRESENTATIVE - 08/10/2012 11:59 PM RETAIL ACCOUNT REPRESENTATIVE Hospital Encounter [facility] ZAIRACONElijah Snyder MD [address] [place] [address] [address] Convulsions (HCC); Dizziness and giddiness; Personal history of malignant neoplasm of bronchus and lung; Nonspecific abnormal findings on radiological and other examination of skull and head; Other diseases of nasal cavity and sinuses Social History Tobacco Use Types Packs/Day Years Used Date Smoking Tobacco: Never Assessed Comments Unknown Sex and Gender Information Value Date Recorded Sex Assigned at Not on file Legal Sex Female 11:00 AM RETAIL ACCOUNT REPRESENTATIVE Gender Identity Not on file Sexual Orientation Not on file documented as of this encounter Plan of Treatment Not on file documented as of this encounter Visit Diagnoses Diagnosis Convulsions (HCC) Other convulsions Dizziness and giddiness Personal history of malignant neoplasm of bronchus and lung Nonspecific abnormal findings on radiological and other examination of skull and head Other diseases of nasal cavity and sinuses documented in this encounter Care Teams Manager Of Manufacturing Relationship Specialty Start Date End Date Jason Whyte MD PCP - General 12/10/11 01/08/13 documented as of this encounter
--- OUTSIDE RECORDS SUMMARY | 2024-08-24 04:37 | XMS_ITS | Encounter Summary ---
Author Organization [facility] Facility Care Team Providers Care Bar Useful Or Busser Name Role Phone Jason Whyte MD Primary Care Provider [phone] Encounter Details Date Type Department Care Team (Late st Contact Info) Description 04/12/2012 - 04/12/2012 11:59 PM CDT Hospital Encounter [facility] CLINCONV Willis Fall MD [address] [facility] [address] [facility] [address] [address] Disease of respiratory system Social History Tobacco Use Types Packs/Day Years Used Date Smoking Tobacco: Never Assessed Comments Unknown Sex and Gender Information Value Date Recorded Sex Assigned at Not on file Legal Sex Female 11:00 AM SETTLEMENT PROCESSOR Gender Identity Not on file Sexual Orientation Not on file documented as of this encounter Plan of Treatment Not on file documented as of this encounter Visit Diagnoses Diagnosis Disease of respiratory system Unspecified disease of respiratory system documented in this encounter Care Teams Bar Useful Or Busser Relationship Specialty Start Date End Date Jason Whyte MD PCP - General 12/10/11 01/08/13 documented as of this encounter
--- OUTSIDE RECORDS SUMMARY | 2024-08-24 04:37 | XMS_ITS | Encounter Summary ---
Author Organization [facility] Facility Care Team Providers Care Police Artist Name Role Phone Jason Whyte MD Primary Care Provider [phone] Encounter Details Date Type Department Care Team (Late st Contact Info) Description 11/30/2010 7:31 PM CDT - 11/30/2010 11:36 PM T Hospital Encounter [facility] CLINCONV Headache; Backache; Hereditary and idiopathic peripheral neuropathy; Scoliosis (and kyphoscoliosis), idiopathic; Personal history of malignant neoplasm of bronchus and lung; Acquired absence of lung; Personal history of tobacco use, presenting hazards to health; Personal history of allergy to narcotic agent; Other personal history presenting hazards to health Social History Tobacco Use Types Packs/Day Years Used Date Smoking Tobacco: Never Assessed Comments Unknown Sex and Gender Information Value Date Recorded Sex Assigned at Not on file Legal Sex Female 11:00 AM HOSPITAL UNIT COORDINATOR Gender Identity Not on file Sexual Orientation Not on file documented as of this encounter Plan of Treatment Not on file documented as of this encounter Visit Diagnoses Diagnosis Headache Backache Unspecified backache Hereditary and idiopathic peripheral neuropathy Unspecified hereditary and idiopathic peripheral neuropathy Scoliosis (and kyphoscoliosis), idiopathic Personal history of malignant neoplasm of bronchus and lung 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
--- OUTSIDE RECORDS SUMMARY | 2024-08-24 04:37 | XMS_ITS | Encounter Summary ---
Author Organization [facility] Facility Care Team Providers Care Quilting Supervisor Name Role Phone Unavailable Primary Care Provider Unavailabl e Encounter Details Date Type Department Care Team (Latest Contact Info) Description 01/16/2010 7:25 AM CDT - 01/16/2010 4:00 PM T Hospital Encounter [facility] CLINCONV Alberto Wetzel MD [address] [place] [id number] Other specified pre-operative examination; Malignant neoplasm of bronchus and lung (HCC); Other specified cardiac dysrhythmias Social History Tobacco Use Types Packs/Day Years Used Date Smoking Tobacco: Never Assessed Comments Unknown Sex and Gender Information Value Date Recorded Sex Assigned at Not on file Legal Sex Female 11:00 AM HEAD OF MARKETING ADOMETRY Gender Identity Not on file Sexual Orientation Not on file documented as of this encounter Plan of Treatment Not on file documented as of this encounter Visit Diagnoses Diagnosis Other specified pre-operative examination Malignant neoplasm of bronchus and lung (HCC) Other specified cardiac dysrhythmias documented in this encounter
--- OUTSIDE RECORDS SUMMARY | 2024-08-24 04:37 | XMS_ITS | Encounter Summary ---
Author Organization [facility] Facility Care Team Providers Care Lead Janitor Name Role Phone Unavailable Primary Care Provider Unavailabl e Encounter Details Date Type Department Care Team (Late st Contact Info) Description 12/30/2009 - 12/30/2009 11:59 PM CDT Hospital Encounter [facility] CLINCONV Malignant neoplasm of upper lobe, bronchus, or lung Social History Tobacco Use Types Packs/Day Years Used Date Smoking Tobacco: Never Assessed Comments Unknown Sex and Gender Information Value Date Recorded Sex Assigned at Not on file Legal Sex Female 11:00 AM SPA EXPERIENCE COORDINATOR Gender Identity Not on file Sexual Orientation Not on file documented as of this encounter Plan of Treatment Not on file documented as of this encounter Visit Diagnoses Diagnosis Malignant neoplasm of upper lobe, bronchus, or lung documented in this encounter
--- OUTSIDE RECORDS SUMMARY | 2024-08-24 04:37 | XMS_ITS | Encounter Summary ---
Author Organization [facility] Healthcare Address [address] [place] [address] Care Team Providers Care Computer Discovery Teacher Name Role Phone Jason Whyte MD Primary Care Provider [phone] Encounter Details Date Type Department Care Team (Late st Contact Info) Description 08/10/2012 1:24 PM COTTON TIPPER - 08/10/2012 11:59 PM COTTON TIPPER Hospital Encounter [facility] Elijah Solano MD [address] [place] [address] [address] Convulsions (HCC) Social History Tobacco Use Types Packs/Day Years Used Date Smoking Tobacco: Never Assessed Comments Unknown Sex and Gender Information Value Date Recorded Sex Assigned at Not on file Legal Sex Female 11:00 AM COTTON TIPPER Gender Identity Not on file Sexual Orientation Not on file documented as of this encounter Plan of Treatment Not on file documented as of this encounter Visit Diagnoses Diagnosis Convulsions (HCC) Other convulsions documented in this encounter Care Teams Computer Discovery Teacher Relationship Specialty Start Date End Date Jason Whyte MD PCP - General 12/10/11 01/08/13 documented as of this encounter
--- OUTSIDE RECORDS SUMMARY | 2024-08-24 04:37 | XMS_ITS | Encounter Summary ---
Author Organization [facility] Healthcare Address [address] [place] [address] Care Team Providers Care Bag Shop Worker Name Role Phone Jason Whyte MD Primary Care Provider [phone] Encounter Details Date Type Department Care Team (Late st Contact Info) Description 01/09/2013 12:33 PM CDT - 01/09/2013 11:59 PM CDT Hospital Encounter [facility]INCON[facility] Yulia Carrington MD [address] [place] [id number] Inflammatory polyarthropathy (CMS/HCC) (HCC) Social History Tobacco Use Types Packs/Day Years Used Date Smoking Tobacco: Never Alcohol Use Standard Drinks/Week Comments Yes 0 (1 standard drink = 0.6 oz pur e alcohol) Comments Unknown Sex and Gender Information Value Date Recorded Sex Assigned at Not on file Legal Sex Female 11:00 AM LOSS PREVENTION GUARD Gender Identity Not on file Sexual Orientation Not on file documented as of this encounter Plan of Treatment Not on file documented as of this encounter Visit Diagnoses Diagnosis Inflammatory polyarthropathy (CMS/HCC) (HCC) Unspecified inflammatory polyarthropathy documented in this encounter Care Teams Bag Shop Worker Relationship Specialty Start Date End Date Jason Whyte MD PCP - General 01/09/13 06/04/13 documented as of this encounter
--- OUTSIDE RECORDS SUMMARY | 2024-08-24 04:37 | XMS_ITS | Encounter Summary ---
Author Organization [facility] Healthcare Address [address] [place] [address] Care Team Providers Care Cell Efficiency Supervisor Name Role Phone Jason Whyte MD Primary Care Provider Encounter Details Date Type Department Care Team (Late st Contact Info) Description 08/19/2012 5:47 PM TALCER - 08/19/2012 10:20 PM TALCER Hospital Encounter [facility]CON[facility] Jayce Sapp MD [address] [facility] [place] # [place] [address] Reaction to spinal or lumbar puncture; Unspecified procedure as the cause of abnormal reaction of patient, or of later complication; Asthma; Convulsions (HCC); Malignant neoplasm of bronchus and lung (HCC) Social History Tobacco Use Types Packs/Day Years Used Date Smoking Tobacco: Never Assessed Comments Unknown Sex and Gender Information Value Date Recorded Sex Assigned at Not on file Legal Sex Female 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 Gender Identity Not on file Sexual Orientation Not on file documented as of this encounter Plan of Treatment Not on file documented as of this encounter Procedures Procedure Name Priority Date/Time Associated Diagnosis Comments SERUM LIPASE Routine 08/19/2012 8:20 PM TALCER SERUM COMPREHENSIVE METABOLIC PANEL Routine 08/19/2012 8:20 PM TALCER SERUM AMYLASE Routine 08/19/2012 8:20 PM TALCER BLOOD WBC CELL MORPHOLOGIC EXAM, AUTO Routine 08/19/2012 8:20 PM TALCER BLOOD CELL COUNT (CBC) Routine 3 8:20 PM TALCER DISCHARGE LABORATORY CUMULATIVE REPORT Routine 08/19/2012 12:00 AM TALCER documented in this encounter Results * Serum lipase (08/19/2012 8:20 PM TALCER) Lip 284 70 - 400 Units/L HISTORICAL RESULTS Serum 08/19/2012 8:20 PM TALCER Jayce Sapp MD LAB BLOOD ORDERABLES Final Re sult Performing Organization Address [facility] de Phone Number HISTORICAL RESULTS * Blood cell count (CBC) (08/19/2012 8:20 PM TALCER) WBC 8.3 4.0 - 10.5 K/cumm HISTORICAL RESULTS RBC 4.57 4.20 - 5.40 M/cumm HISTORICAL RESULTS Hgb 13.5 12.0 - 16.0 g/dl HISTORICAL RESULTS Hct 41.5 37.0 - 47.0 % HISTORICAL RESULTS MCV 90.8 77.0 - 97.0 fl HISTORICAL RESULTS MCH 29.5 23.0 - 34.0 pg HISTORICAL RESULTS MCHC 32.5 32.0 - 36.0 g/dl HISTORICAL RESULTS Rdw 13.7 11.5 - 14.5 % HISTORICAL RESULTS Platelets 176 150 - 451 K/cumm HISTORICAL RESULTS MPV 9.2 7.4 - 10.4 fl HISTORICAL RESULTS Blood specimen (specimen) 08/19/2012 8:20 PM TALCER Jayce Sapp MD LAB BLOOD ORDERABLES Final Re sult Performing Organization Address [facility] Co de Phone Number HISTORICAL RESULTS * Serum amylase (08/19/2012 8:20 PM TALCER) Stefanie, sr 76 25 - 115 IUnits/L HISTORICAL RESULTS Comment:PLEASE SEE NEW REFER ENCE RANGE Serum 08/19/2012 8:20 PM TALCER Jayce Sapp MD LAB BLOOD ORDERABLES Final [facility] Performing Organization Address [facility] de Phone Number HISTORICAL RESULTS * (ABNORMAL) Blood WBC cell morphologic exam, auto (08/19/2012 8:20 PM TALCER) Lymphocytes 7.4(L) 25.0 - 33.0 % HISTORICAL RESULTS Monos 2.8 1.0 - 13.0 % HISTORICAL RESULTS Neutrophils 88.8(H) 54.0 - 69.0 % HISTORICAL RESULTS Eosinophils 0.4 0.0 - 10.0 % HISTORICAL RESULTS Basophils 0.5 0.0 - 1.0 % HISTORICAL RESULTS Young granulocytes, % 0.1 % HISTORICAL RESULTS Lymphocytes, abs 0.6 K/cumm HIS TORICAL RESULTS Monocytes, absolute 0.2 K/cumm HISTORICAL RESULTS Neutrophils, abs 7.3 K/cumm HIS TORICAL RESULTS Eosinophils, abs 0.0 cells/cumm HI STORICAL RESULTS Basophils, abs 0.0 K/cumm HISTO RICAL RESULTS Young granulocyte 0 K/cumm HISTORICAL RESULTS Blood specimen (specimen) 08/19/2012 8:20 PM TALCER Jayce Sapp MD LAB BLOOD ORDERABLES Final [facility] Performing Organization Address [facility] de Phone Number HISTORICAL RESULTS * (ABNORMAL) Serum comprehensive metabolic panel (08/19/2012 8:20 PM TALCER) BUN 14.0 6.0 - 23.0 mg/dl HISTORICAL RESULTS Sodium 140 134 - 143 mmol/L HISTORICAL RESULTS Potassium, sr 4.0 3.4 - 5.0 mmol/L HISTORICAL RESULTS Chloride 106 99 - 108 mmol/L HISTORICAL RESULTS CO2 30 23 - 32 mmol/L HISTORICAL RESULTS Glucose, fasting 118(H) 70 - 110 mg/dl HISTORICAL RESULTS Creatinine 0.89 0.60 - 1.30 mg/dl HISTORICAL RESULTS Comment: eGFR: >70 ml/min/1.73sq.m if non -[place]. eGFR: >70 ml/min/1.73sq.m if -[place]. AVE GFR for 50-59 yr. age group: ??93 ml/min/1.73sq.m Calculated using MDRD Equation BUN/creat ratio 16 10 - 20 HIST ORICAL RESULTS A. gap 8 7 - 14 mmol/L HISTORICAL RESULTS Protein, sr 7.7 6.4 - 8.0 g/dl HISTORICAL RESULTS Alb 4.2 3.3 - 4.5 g/dl HISTORICAL RESULTS Alb/glob ratio 1.2 1.1 - 1.8 HISTO RICAL RESULTS Calcium 9.1 8.6 - 9.8 mg/dl HISTORICAL RESULTS Bilirubin 0.7 0.0 - 1.1 mg/dl HISTORICAL RESULTS Alk phos 95 44 - 125 Units/L HISTORICAL RESULTS AST 16 4 - 32 Units/L HISTORICAL RESULTS ALT 31 16 - 66 Units/L HISTORICAL RESULTS Serum 08/19/2012 8:20 PM TALCER us Jayce Sapp MD LAB BLOOD ORDERABLES Final Re sult HISTORICAL RESULTS * Discharge Laboratory Cumulative Report (08/19/2012 12:00 AM TALCER) 08/19/2012 Narrative HISTORICAL RESULTS - 08/21/2012 12:21 AM TALCER Patient No: [id number] ? [facility] Patient Name: YANE FAGAN ? [facility] Healthcare Age: 52 YRS ?: 1960 ?Sex:F ?[address] )[phone] ?? Adm Dt: 08/19/2012 ?RUDY Mcgee ??[id number] Created: 08/21/2012 ??0021 ?? Pt. Type: E ? Discharge Dt: 08/19/2012 ? Pathologists: Anabel Toledo MD Admit Attend Dr: JAYCE SAPP MD ? BLOOD CELL COUNTS ?Collection Date: ?08/19/12 ?Collection Time: ?2020 ? Ref Range: ?? Units: [4.00-10.50] /CMM ? WBC X 10^3 ?8.26 [4.20-5.40] ??/CMM ? RBC X 10^6 ?4.57 [12.0-16.0] ??G/DL ? HGB ? 13.5 [37.0-47.0] ??% ?HCT ? 41.5 [77.0-97.0] ??FL ? MCV ? 90.8 [23.0-34.0] ??PG ? MCH ? 29.5 [32.0-36.0] ??% ?MCHC ?32.5 [11.5-14.5] ??% ?RDW ? 13.7 [150-451] ?? /CMM ? PLT X 10^3 ? 176 ?BLOOD CELL DIFFERENTIAL ?Collection Date: ?08/19/12 ?Collection Time: ?2020 ? Ref Range: ?? Units: [54.0-69.0] ??% ?NEUTROPHILS ? 88.8 H [25.0-33.0] ??% ?LYMPHOCYTES ?7.4 L [1.0-13.0] ??% ?MONOCYTES ?2.8 [0.0-10.0] ??% ?EOSINOPHILS ?0.4 [0.0-1.0] ?? % ?BASOPHILS ?0.5 ? /CMM ? A LYMPHOCYTE ? 0.6 ? % ?IMM GRAN % ? 0.1 ? /CMM ? A IMM GRAN ? 0.1 ? /CMM ? A MONOCYTE ? 0.2 ? /CMM ? A NEUTROPHIL ? 7.3 ? /CMM ? A EOSINOPHIL ? 0.0 ? /CMM ? A BASOPHIL ? 0.0 Footnotes and Symbols: L = Low, H = High ?? CONTINUED ?Page: ?? 1 Patient No: [id number] ? [facility] Patient Name: YANE FAGAN ? [facility] Age: 52 YRS ?: 1960 ?Sex:F ?[address] )[id number] ?? Adm Dt: 08/19/2012 ?RUDY Mcgee ??[id number] Created: 08/21/2012 ??0021 ?? Pt. Type: E ? Discharge Dt: 08/19/2012 ? Pathologists: Anabel Toledo MD Admit Attend Dr: JAYCE SAPP MD ? GENERAL CHEMISTRY ?Collection Date: ?08/19/12 ?Collection Time: ?2020 ? Ref Range: ?? Units: [134-143] ?? MMOL/L ? SODIUM ? 140 [3.4-5.0] ?? MMOL/L ? POTASSIUM ?4.0 [99.0-108.0] MMOL/L ? CHLORIDE ? 106.0 [23.0-32.0] ??MMOL/L ? TOTAL CO2 ? 30.5 ?? [7-14] ?MMOL/L ? ANION GAP ?8 ??[70-110] ?? MG/DL ?GLUCOSE FASTING ?118 H [6.4-8.0] ?? G/DL ? TOTAL PROTEIN ?7.7 [3.3-4.5] ?? G/DL ? ALBUMIN ?4.2 [1.1-1.8] ?A/G RATIO ?1.2 [8.6-9.8] ?? MG/DL ?CALCIUM ?9.1 [0.0-1.1] ?? MG/DL ?BILI TOTAL ? 0.7 ??[44-125] ?? U/L ?ALK PHOS ?95 ?? [4-32] ?U/L ?AST(SGOT) ? 16 ??[16-66] ?U/L ?ALT(SGPT) ? 31 [6.0-23.0] ??MG/DL ?BUN ? 14.0 ??[10-20] ? B/C RATIO ? 16 [0.60-1.30] ??MG/DL ?CREATININE ?0.89 f ?08/19/122019 eGFR: >70 ml/min/1.73sq.m if non -[place]. eGFR: >70 ml/min/1.73sq.m if -[place]. AVE GFR for 50-59 yr. age group: ??93 ml/min/1.73sq.m Calculated using MDRD Equation FOOTNOTE ADDED ON ?? 08/19/12 ?? AT 2050 BY 999 ??[25-115] ?? U/L ?AMYLASE ? 76 f ??[70-400] ?? U/L ?LIPASE ? 284 Footnotes and Symbols: H = High, f = Footnote AMYLASE (07/01/10 -- Current) PLEASE SEE NEW REFERENCE RANGE ?? END OF CHART ? Page: ?? 2 us Historical Provider LAB BLOOD ORDERABLES Krystyna swann Result HISTORICAL RESULTS documented in this encounter Visit Diagnoses Diagnosis Reaction to spinal or lumbar puncture Unspecified procedure as the cause of abnormal reaction of patient, or of later complication Asthma Unspecified asthma Convulsions (HCC) Other convulsions Malignant neoplasm of bronchus and lung (HCC) documented in this encounter Care Teams Cell Efficiency Supervisor Relationship Specialty Start Date End Date Jason Whyte MD PCP - General 12/10/11 01/08/13 documented as of this encounter
--- OUTSIDE RECORDS SUMMARY | 2024-08-24 04:37 | XMS_ITS | Encounter Summary ---
Author Organization [facility] Care Team Providers Care Collateral Analyst Name Role Phone Jason Whyte MD Primary Care Provider [phone] Encounter Details Date Type Department Care Team ([facility] st Contact Info) Description 01/23/2010 6:32 AM CDT - 01/27/2010 6:35 PM CDT Hospital Encounter [facility] CLINCON Alberto Wetzel MD [address] [place] [id number] Malignant neoplasm of upper lobe, bronchus, or lung; Type 2 or unspecified type diabetes mellitus; Migraine; Asthma; Anemia; Esophageal reflux; Arthropathy Social History Tobacco Use Types Packs/Day Years Used Date Smoking Tobacco: Never Assessed Comments Unknown Sex and Gender Information Value Date Recorded Sex Assigned at Not on file 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 Gender Identity Not on file Sexual Orientation Not on file documented as of this encounter Plan of Treatment Not on file documented as of this encounter Visit Diagnoses Diagnosis Malignant neoplasm of upper lobe, bronchus, or lung Type 2 or unspecified type diabetes mellitus Migraine Migraine, unspecified, without mention of intractable migraine without mention of status migrainosus Asthma Unspecified asthma Anemia Unspecified anemia Esophageal reflux Arthropathy Unspecified arthropathy, site unspecified documented in this encounter Care Teams Collateral Analyst Relationship Specialty Start Date End Date Jason Whyte MD PCP - General 01/22/10 12/09/11 documented as of this encounter
--- OUTSIDE RECORDS SUMMARY | 2024-08-24 04:37 | XMS_ITS | Encounter Summary ---
Author Organization [facility] Healthcare Address [address] [place] [address] Care Team Providers Care Pigment Pumper Name Role Phone Jason Whyte MD Primary Care Provider [phone] Encounter Details Date Type Department Care Team (Latest Contact Info) Description 08/18/2012 10:22 AM CASING BLOWER - 08/18/2012 5:35 PM CASING BLOWER Hospital Encounter [facility] Niyah Solano MD [address] [place] [address] [place] [address] Other causes of encephalitis and encephalomyelitis Social History Tobacco Use Types Packs/Day Years Used Date Smoking Tobacco: Never Assessed Comments Unknown Sex and Gender Information Value Date Recorded Sex Assigned at Not on file Legal Sex Female 11:00 AM CASING BLOWER Gender Identity Not on file Sexual Orientation Not on file documented as of this encounter Last Filed Vital Signs Vital Sign Reading Time Taken Comments Blood Pressure 98/60 08/18/2012 4:33 PM CASING BLOWER Pulse 78 08/18/2012 4:33 PM CASING BLOWER Temperature - - Respiratory Rate - - Oxygen Saturation - - Inhaled Oxygen Concentration - - Weight - - Height - - Body Mass Index - - documented in this encounter Plan of Treatment Not on file documented as of this encounter Procedures Procedure Name Priority Date/Time Associated Diagnosis Comments DISCHARGE CUMULATIVE SUMMARY ADDENDUM Routine 09/19/2012 12:25 AM CASING BLOWER CYTOLOGY REPORT Routine 08/18/2012 2:28 PM CASING BLOWER IR LUMBAR PUNCTURE, DIAGNOSTIC WO FLUORO OR CT GUIDANCE Routine 08/18/2012 12:17 PM CASING BLOWER CSF PROTEIN Routine 08/18/2012 12:00 PM CASING BLOWER CSF GLUCOSE Routine 08/18/2012 12:00 PM CASING BLOWER CSF CELL COUNT Routine 08/18/2012 12:00 PM CASING BLOWER REFERRED TEST, MISCELLANEOUS Routine 08/18/2012 6:00 AM CASING BLOWER MICROBIOLOGY SUMMARY Routine 08/18/2012 12:00 AM CASING BLOWER DISCHARGE LABORATORY CUMULATIVE REPORT Routine 08/18/2012 12:00 AM CASING BLOWER documented in this encounter Results * Discharge Cumulative Summary Addendum (09/19/2012 12:25 AM CASING BLOWER) 09/19/2012 12:2 5 AM CASING BLOWER Narrative HISTORICAL RESULTS - 09/19/2012 12:25 AM CASING BLOWER Patient No: [id number] ? [facility] Patient Name: AYNE FAGAN ? [facility] Healthcare Age: 52 YRS ?: 1960 ?Sex:F ?[address] )[id number] ?? Adm Dt: 08/18/2012 ?[place] ??[id number] Created: 09/19/2012 ??0025 ?? Pt. Type: U ? Discharge Dt: 08/18/2012 ? Pathologists: Anabel Toledo MD Admit Attend Dr: NIYAH NUNO MD ?MICRO - FUNGUS FUNGUS CULTURE ?Collected: 08/18/12 [facility] ? Received: 08/18/121308 Source: CEREBROSPINAL FLUID ? Started: 08/18/129 ?TUBE 2 ? PRELIMINARY REPORT ?08/28/12611 ? NO FUNGUS ISOLATED AT 1 WEEK ?09/04/12742 ? NO FUNGUS ISOLATED AT 2 WEEKS ?09/11/121112 ? NO FUNGUS ISOLATED AT 3 WEEKS ? FINAL REPORT ?09/18/12805 ? NO FUNGUS ISOLATED AT 4 WEEKS FUNGUS CULTURE (Initial -- Current) FOUR WEEKS REQUIRED FOR FINAL NEGATIVE RESULT. ?? END OF CHART ? Page: ?? 1 us Historical Provider MD LAB MICROBIOLOGY - GENERA L ORDERABLES Final Result HISTORICAL RESULTS * Cytology Report (08/18/2012 2:28 PM CASING BLOWER) 08/18/2012 2:28 PM CASING BLOWER Narrative HISTORICAL RESULTS - 08/21/2012 1:14 PM CASING BLOWER [facility] Patient No: [id number] Patient Name: YANE FAGAN )[id number] Age: 52 YRS ?? : 1960 Admit Phys: NIYAH NUNO MD Case #: [id number] ? 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 SPECIMEN SUBMITTED: ? 1 ml clear, colorless fluid received fresh in tube #4. ? Collected, received, and accessioned 08/18/2012. ? 2 cytospins (1 Bolanos stained) and 1 NuView prepared from ? cerebrospinal fluid. ? . STATEMENT OF ADEQUACY: ? Satisfactory for interpretation. DIAGNOSIS: ? CEREBROSPINAL FLUID ? -NO EVIDENCE OF MALIGNANCY ? [id number], [id number] MICROSCOPIC DESCRIPTION/COMMENT: ? The specimen is sparsely cellular, contianing only a few ? widely scattered small mature-appearing lymphocytes and ? monocytes. No malignant cells are identified. ? Pathologist: DERIC JOHNSON MD Electronic ?signature ? MAR MAR/MAR 08/21/12 us Historical Provider LAB PATHOLOGY ORDERABLES Final Result HISTORICAL RESULTS * Lumbar Puncture WO Injection-Diagnostic (08/18/2012 12:17 PM CASING BLOWER) Anatomical Region Laterality Modality Spine N/A X-Ray Angiograph y 08/18/2012 12:1 7 PM CASING BLOWER Narrative 01/12/2013 11:30 PM CDT MB/VRL XR Lumbar Puncture ? [id number] ??Acc#: ??[id number] DATE OF EXAM: ??Aug ??2012 CLINICAL HISTORY: Paraneoplastic encephalitis. RESULT: Informed consent was obtained, including risks and complications. Time out was performed prior to the procedure. Patient was placed prone on fluoroscopy table. ??The area of the lower lumbar region was prepped and draped in the usual sterile fashion. ??1% Lidocaine was utilized for local anesthesia. Some curvature of the lumbar spine supporting scoliosis, with evidence of rotatory component. It was elected to perform lumbar puncture at the L5-S1 level, partly or primarily due to the curvature. ??Under local anesthesia and using sterile technique, 20 gauge Sprotte needle was advanced percutaneously at the L5-S1 level. CSF was clear. ??Opening pressure was 8mm. ??CSF obtained and sent to the laboratory for evaluation. ??Patient tolerated the procedure well. ??No immediate complications. ??The needle was withdrawn, and adhesive bandage placed over the puncture site. ??No immediate complication. ??The patient left the department in good condition. Lateral projection lumbar spine demonstrates some degenerative changes, with evidence of degenerative disc disease at L4-L5, ??and minor spurring. IMPRESSION: 1. SUCCESSFUL LUMBAR PUNCTURE. 2. DEGENERATIVE CHANGES LUMBAR SPINE DISCUSSED. FLUOROSCOPY TIME WAS 1.0 MINUTES. Interpreting Physician: ??ROSSANA COX M.D. ??Read on: ??Aug ??2012 12:33P Transcribed by: ??marie ?? On: Aug?2012 ??2:12P Approved Electronically by: ??ROSSANA COX M.D. ??on: ??Jan 12 2013 11:30P Ordering DR: DR NIYAH NUNO Attending DR: DR NIYAH NUNO Procedure Note Provider, MD Marisabel - 12/15/2016 MB/VRL XR Lumbar Puncture [id number] Acc#: [id number] DATE OF EXAM: Aug 18 2012 CLINICAL HISTORY: Paraneoplastic encephalitis. RESULT: Informed consent was obtained, including risks and complications. Timeout was performed prior to the procedure. Patient was placed prone onfluoroscopy table. The area of the lower lumbar region was prepped anddraped in the usual sterile fashion. 1% Lidocaine was utilized for localanesthesia. Some curvature of the lumbar spine supporting scoliosis, withevidence of rotatory component. It was elected to perform lumbar punctureat the L5-S1 level, partly or primarily due to the curvature. Under localanesthesia and using sterile technique, 20 gauge Sprotte needle wasadvanced percutaneously at the L5-S1 level. CSF was clear. Openingpressure was 8mm. CSF obtained and sent to the laboratory for evaluation.Patient tolerated the procedure well. No immediate complications. Theneedle was withdrawn, and adhesive bandage placed over the puncture site.No immediate complication. The patient left the department in goodcondition. Lateral projection lumbar spine demonstrates some degenerative changes, with evidence of degenerative disc disease at L4-L5,and minor spurring. IMPRESSION: 1. SUCCESSFUL LUMBAR PUNCTURE. 2. DEGENERATIVE CHANGES LUMBAR SPINE DISCUSSED. FLUOROSCOPY TIME WAS1.0 MINUTES. Interpreting Physician: ROSSANA COX M.D. Read on: Aug 18 2012 12:33P Transcribed by: marie On: Aug 18 2012 2:12P Approved Electronically by: ROSSANA COX M.D. on: Jan 12 2013 11:30P Ordering DR: DR NIYAH NUNO Attending DR: DR NIYAH NUNO us Historical Provider MD HUSSEIN IR PROCEDURES Final R esult * (ABNORMAL) CSF protein (08/18/2012 12:00 PM CASING BLOWER) Protein, CSF 67(H) 15 - 45 mg/dl HISTORICAL RESULTS Blood/Cerebrospin al fluid 08/18/2012 12:00 PM CASING BLOWER us Niyah Nuno MD LAB BLOOD ORDERABLES Fi nal Result HISTORICAL RESULTS * (ABNORMAL) CSF cell count (08/18/2012 12:00 PM CASING BLOWER) Collection tube, CSF 3.0 HISTORICAL RESULTS Color, CSF COLRLESS COLRLESS HISTORICA L RESULTS Appearance, CSF CLEAR CLEAR HIST ORICAL RESULTS WBC, CSF 1 0 - 5 cells/cumm HISTORICAL RESULTS RBC, CSF <3.0(A) 0.0 - 3.0 cells/cumm HISTORICAL RESULTS Neutrophils, CSF 100 % HISTORICAL RESULTS Mononuclear cells, CSF 0 % HISTORICAL RESULTS Blood/Cerebrospin al fluid 08/18/2012 12:00 PM CASING BLOWER Niyah Nuno MD LAB BLOOD ORDERABLES Fi nal Result HISTORICAL RESULTS * CSF glucose (08/18/2012 12:00 PM CASING BLOWER) Glucose, CSF 63 40 - 70 mg/dl HISTORICAL RESULTS Blood/Cerebrospin al fluid 08/18/2012 12:00 PM CASING BLOWER Niyah Nuno MD LAB BLOOD ORDERABLES Fi nal Result Performing Organization Address [facility] de Phone Number HISTORICAL RESULTS * Referred test, miscellaneous (08/18/2012 6:00 AM CASING BLOWER) Referral specimen, test result SEEFN HISTORICAL RESULTS Miscellaneous 08/18/2012 6:0 0 AM CASING BLOWER Narrative HISTORICAL RESULTS - 08/23/2012 2:19 AM CASING BLOWER KEZIA PNEOE ? [place] ? Expected Test ? Result ?LO ??Units ??Values Paraneoplas Autoantibody Eval,CSF ??ENRIKE-1, CSF ?Negative ?titer ?-- REFERENCE VALUE -- ?Negative at <1:2 ??ENRIKE-2, CSF ?Negative ?titer ?-- REFERENCE VALUE -- ?Negative at <1:2 ??ENRIKE-3, CSF ?Negative ?titer ?-- REFERENCE VALUE -- ?Negative at <1:2 ??AGNA-1, CSF ?Negative ?titer ?-- REFERENCE VALUE -- ?Negative at <1:2 ??SIGNAL SUPERVISOR-1, CSF ? Negative ?titer ?-- REFERENCE VALUE -- ?Negative at <1:2 ??SIGNAL SUPERVISOR-2, CSF ? Negative ?titer ?-- REFERENCE VALUE -- ?Negative at <1:2 ??SIGNAL SUPERVISOR-Tr, CSF ?Negative ?titer ?-- REFERENCE VALUE -- ?Negative at <1:2 ??Amphiphysin Ab, CSF ?Negative ?titer ?-- REFERENCE VALUE -- ?Negative at <1:2 ??CRMP-5-IgG, CSF ?Negative ?titer ?-- REFERENCE VALUE -- ?Negative at <1:2 ?Titers lower than 1:2 may be ?detectable by recombinant CRMP-5 ?western blot analysis. CRMP-5 ?western blot analysis will be done ?by request on stored spinal fluid. ?This supplemental testing is ?recommended in cases of chorea, ?vision loss, cranial neuropathy ?and myelopathy. Extramural clients ?contact [facility] at ? to add-on CRMP-5-IgG ?Western Blot, CSF. Intramural ?Clients, please call the ?Neuroimmunology Lab at [phone]. us Niyah Nuno MD LAB BLOOD ORDERABLES Fi nal Result HISTORICAL RESULTS * Microbiology Summary (08/18/2012 12:00 AM CASING BLOWER) 08/18/2012 Narrative HISTORICAL RESULTS - 09/19/2012 12:29 AM CASING BLOWER ? [facility] ?CLINICAL LABORATORIES ? MICROBIOLOGY REPORT PATIENT NAME: ??YANE FAGAN ? MED RECORD#: ??[id number] BIRTHDATE: ??1960 ?? AGE: ??52 YRS SEX: F ?PATIENT#: ? [id number] ADMITTING DR: ??NIYAH NUNO MD ? ATTENDING DR: ??NIYAH NUNO MD ?ACCESSION#: ?? [id number] CREATED: ??09/19/12 ?? 0025 ? ADMIT DATE: ?? 01/04/13 ?MICRO - CSF CSF CULTURE W/GRAM STAIN ?Collected: 08/18/12 1200 ? Received: 08/18/12 1309 Source: CEREBROSPINAL FLUID ? Started: 08/18/12 1309 ?TUBE 2 ?08/19/12 0649 ? NO GROWTH ?08/22/12 0635 ? NO GROWTH ? MICRO - MISCELLANEOUS ORDERABLE GRAM STAIN ?Collected: 08/18/12 1200 ? Received: 08/18/12 1309 Source: CEREBROSPINAL FLUID ? Started: 08/18/12 1309 ?TUBE 2 ? GRAM STAIN ? 08/18/12 1323 ? NO NEUTROPHILS SEEN ? NO ORGANISMS SEEN ?MICRO - FUNGUS FUNGUS CULTURE ?Collected: 08/18/12 1200 ? Received: 08/18/12 1309 Source: CEREBROSPINAL FLUID ? Started: 08/18/12 1309 ?TUBE 2 ?//13 0612 ? NO FUNGUS ISOLATED AT 1 WEEK ?01/21/13 0743 ? NO FUNGUS ISOLATED AT 2 WEEKS ?01/28/13 1113 ? NO FUNGUS ISOLATED AT 3 WEEKS ?09/18/12 0806 ? NO FUNGUS ISOLATED AT 4 WEEKS FUNGUS CULTURE (Initial -- Current) FOUR WEEKS REQUIRED FOR FINAL NEGATIVE RESULT. ?? END OF CHART us Historical Provider LAB MICROBIOLOGY - GENERA L ORDERABLES Final Result HISTORICAL RESULTS * Discharge Laboratory Cumulative Report (08/18/2012 12:00 AM CASING BLOWER) 08/18/2012 Narrative HISTORICAL RESULTS - 08/19/2012 2:24 AM CASING BLOWER Patient No: [id number] ? [facility] Patient Name: YANE FAGAN ? [facility] Healthcare Age: 52 YRS ?: 1960 ?Sex:F ?[address] )[phone] ?? Adm Dt: 08/18/2012 ?[place], [place] ??[address] Created: 08/19/2012 ??0224 ?? Pt. Type: U ? Discharge Dt: 08/18/2012 ? Pathologists: Anabel Toledo MD Admit DrAndrey Attend Dr: NIYAH NUNO MD ? MICRO - MISCELLANEOUS ORDERABLE GRAM STAIN ?Collected: 08/18/12 1200 ? Received: 08/18/121308 Source: CEREBROSPINAL FLUID ? Started: 08/18/121308 ?TUBE 2 ? STAINS/PREPARATIONS ? GRAM STAIN ? 08/18/121322 ? NO NEUTROPHILS SEEN ? NO ORGANISMS SEEN ? CSF ANALYSIS ?Collection Date: ?08/18/12 ?Collection Time: ?1200 ? Ref Range: ?? Units: ?CSF TUBE NUMBER ?3.0 [COLRLESS] ?CSF COLOR ? COLRLESS ??[CLEAR] ? CSF APPEARANCE ? CLEAR ?? [0-5] ? /CMM ? CSF WBC COUNT ?1 ?? [0-3] ? /CMM ? CSF RBC COUNT ? <3 * ? % ?CSF POLYS ?100 ??[40-70] ?MG/DL ?CSF GLUCOSE ? 63 ??[15-45] ?MG/DL ?CSF PROTEIN ? 67 H Footnotes and Symbols: H = High, * = Abnormal ?? END OF CHART ? Page: ?? 1 us Historical Provider LAB BLOOD ORDERABLES Krystyna swann Result Performing Organization Address City/State/[facility] Co de Phone Number HISTORICAL RESULTS documented in this encounter Visit Diagnoses Diagnosis Other causes of encephalitis and encephalomyelitis documented in this encounter Care Teams Pigment Pumper Relationship Specialty Start Date End Date Jason Whyte MD PCP - General 12/10/11 01/08/13 documented as of this encounter
--- OUTSIDE RECORDS SUMMARY | 2024-08-24 04:37 | XMS_ITS | Encounter Summary ---
Author Organization [facility] Facility Care Team Providers Care Student Recruiter Name Role Phone Jason Whyte MD Primary Care Provider [phone] Encounter Details Date Type Department Care Team (Late st Contact Info) Description 05/17/2011 - 05/17/2011 11:59 PM CDT Hospital Encounter [facility] Alberto Wetzel MD [address] [place], [place] [id number] [place] [address] Malignant neoplasm of upper lobe, bronchus, or lung Social History Tobacco Use Types Packs/Day Years Used Date Smoking Tobacco: Never Assessed Comments Unknown Sex and Gender Information Value Date Recorded Sex Assigned at Not on file 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
--- OUTSIDE RECORDS SUMMARY | 2024-08-24 04:37 | XMS_ITS | Encounter Summary ---
Author Organization [facility] Address [address] [place] [address] Care Team Providers Care Concaving Machine Operator Name Role Phone Jason Whyte MD Primary Care Provider [phone] Encounter Details Date Type Department Care Team (Late st Contact Info) Description 06/24/2013 6:51 PM CLUTCH INSPECTOR - 06/24/2013 11:59 PM CLUTCH INSPECTOR Hospital Encounter [facility] Elijah Solano MD [address] [place] [address] [address] [place] [id number] Obstructive sleep apnea Social History Tobacco Use Types Packs/Day Years Used Date Smoking Tobacco: Never Alcohol Use Standard Drinks/Week Comments Yes 0 (1 standard drink = 0.6 oz pur e alcohol) Comments Unknown Sex and Gender Information Value Date Recorded Sex Assigned at Not on file 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 Room No: : ?1960 ? Patient Type: ?ANC Attend.: ??Elijah Nuno M.D. ?Admit Date: ??06/24/2013 Dict.: ?Dorothy Conway M.D., D.MAndrey ?Disch. Date: 06/24/2013 ?COMPREHENSIVE POLYSOMNOGRAM DATE OF STUDY: 06/24/2013 INDICATION FOR STUDY: The patient is a 52-year-old female with the chief complaints of snoring, manager art headaches, episodes of confusion, and excessive daytime hypersomnolence. The patient's Seibert Sleepiness Scale score is 7. PAST MEDICAL HISTORY: Stroke and heart arrhythmia. VITAL STATISTICS Age: 52 years Height: 70 inches Weight: 130 pounds Body mass index: 18.8 PROCEDURE: ??The patient underwent overnight polysomnogram with multiple-channel polysomnography to include EEG, sleep stage recording, and cardiorespiratory monitoring as well as videotaping. DESCRIPTION OF POLYSOMNOGRAPHIC FINDINGS: ??The patient's total time in bed was 359.9 minutes. Total sleep time was 336.5 minutes. Sleep efficiency was 91%. Latency from lights-out to stage N1 was 5.3 minutes, latency to stage N2 was 13.8 minutes, latency to stage N3 was 63.5 minutes and latency to stage REM was 78 minutes. ??Sleep stage recording revealed stage wake of 34 minutes. Stage NREM comprised 285.5 minutes (84.8% of total sleep time). This included stage N1 of 50.5 minutes (15% of total sleep time), stage N2 of 233 minutes (69.2% of total sleep time), and stage N3 of 2 minutes (0.6% of total sleep time). Stage REM comprised 51 minutes (15.2% of total sleep time). Arousal analysis revealed a total of 146 arousals. The arousal index was 26.0. There were 58 spontaneous arousals with a spontaneous arousal index of 10.3. The apnea/hypopnea index (AHI) was 1.3. The AHI was 2.3 in the supine position and none in non-supine positions. Four obstructive and nine hypopneas were recorded. Baseline oxygen saturation was 94.8%. Lowest oxygen saturation was 90%. There were a total of eight oxygen desaturations. Longest oxygen desaturation duration was 56.1 seconds. Limb movement recording did not reveal any periodic limb movements. Average heart rate during wake was 66.7 and during sleep 65.5. ??The heart rhythm was sinus rhythm. Snoring was infrequent and moderate. IMPRESSION: The above polysomnogram documents evidence of 1. Normal sleep efficiency. 2. Reduction in REM latency. 3. Rare apneas and hypopneas. 4. The present study does not meet criteria for obstructive sleep apnea ??syndrome. 5. If hypersomnia is a concern, multiple sleep latency testing may be indicated. Clinical correlation is recommended. [place] A: Hypersomnia, 780.54 [place] B: Polysomnogram, 958.10. ? Diplomate in Sleep Medicine ?([place] [employer] of ? Psychiatry and Neurology) Dorothy Conway M.D., BasiliaM. AR/ms Job #: ??[id number] DD: ??07/04/2013 19:11 TD: ??07/05/2013 15:48 Authenticated and Edited by Dorothy Conway MD On 07/06/13 1:59:47 PM us Historical Provider [facility]EP [facility]ENTER ORDERABLES F inal Result HISTORICAL RESULTS documented in this encounter Visit Diagnoses Diagnosis Obstructive sleep apnea Obstructive sleep apnea (adult) (pediatric) documented in this encounter Care Teams Concaving Machine Operator Relationship Specialty Start Date End Date Jason Whyte MD PCP - General 06/05/13 10/08/13 documented as of this encounter
== END 2024-08-17 02:52 | disposition home or self-care (01) ==
PROVIDERS: Physician Assistant; Emergency Provider Physician Assistant; PCP Family Medicine Adolescent Medicine
DX: R07.9 Chest pain, unspecified (principal); J45.40 Moderate persistent asthma, uncomplicated; Z85.118 Personal history of other malignant neoplasm of bronchus and lung; Z86.73 Personal history of transient ischemic attack (TIA), and cerebral infarction without residual deficits; Z90.2 Acquired absence of lung [part of]; R00.1 Bradycardia, unspecified; R94.31 Abnormal electrocardiogram [ECG] [EKG]
CPT/HCPCS: 36415; 71275; 80053; 83690; 83880; 84484; 85025; 85610; 85730; 93005; 96374; 99284; A9270; J1885; Q9967

== ENCOUNTER 2024-11-09 19:03 | Emergency (ER) | payer OTHER, SELFPAY ==
--- NOTE | 2024-11-09 19:08 | ED.SKABFB ---
HPI - Skin/Abscess/Foreign Bdy General Chief complaint: Skin/Abscess/Foreign Body Stated complaint: tick bite right arm Time Seen by Provider: 11/09/24 19:21 Source: patient and RN notes reviewed Mode of arrival: ambulatory Limitations: no limitations History of Present Illness HPI narrative: 64-year-old female presents with for possible tick bite to right upper. Reports it has been there 2 weeks, she thought it was a mole in till she sought had legs today. She denies ill feeling, fever, rash. MD complaint: insect bite/sting Related Data Home Medications ?Medication ?Instructions ?Recorded ?Confirmed ?Last Taken ?Type albuterol sulfate 90 mcg/actuation 1 puff inhalation Q4H PRN 07/26/22 04/05/24 Unknown History aerosol inhaler Shortness Of Breath Or Wheezing fluticasone 500 mcg-salmeterol 50 1 inh inhalation Q12H 07/26/22 04/05/24 Unknown History mcg/dose blistr powdr for inhalation (Advair Diskus) loratadine 10 mg tablet 10 mg PO DAILY 07/26/22 04/05/24 Unknown History montelukast 10 mg tablet 10 mg PO DAILY 07/26/22 04/05/24 Unknown History tiotropium bromide 1.25 2 puff inhalation DAILY 04/05/24 04/05/24 Unknown History mcg/actuation mist for inhalation (Spiriva Respimat) Allergies Allergy/AdvReac Type Severity Reaction Status Date / Time cyclobenzaprine Allergy Severe STOPS Verified 11/09/24 19:18 BREATHING topiramate Allergy Severe Anaphylactic Verified 11/09/24 19:18 Shock amitriptyline Allergy Intermediate Unknown Verified 11/09/24 19:18 amoxicillin Allergy Intermediate Hives Verified 11/09/24 19:18 Penicillins Allergy Intermediate Hives Verified 11/09/24 19:18 carbamazepine Allergy Unknown RASH Verified 11/09/24 19:18 codeine Allergy Unknown Unknown Verified 11/09/24 19:18 divalproex sodium Allergy Unknown RASH Verified 11/09/24 19:18 doxycycline Allergy Unknown Unknown Verified 11/09/24 19:18 hydrocodone Allergy Unknown Unknown Verified 11/09/24 19:18 hydromorphone Allergy Unknown Unknown Verified 11/09/24 19:18 lamotrigine Allergy Unknown RASH Verified 11/09/24 19:18 oxycodone Allergy Unknown Unknown Verified 11/09/24 19:18 peanut Allergy Unknown Unknown Verified 11/09/24 19:18 adhesive tape AdvReac Unknown RASH Verified 11/09/24 19:18 gabapentin AdvReac Unknown Unknown Verified 11/09/24 19:18 COCONUT Allergy Unknown Unknown Uncoded 11/09/24 19:18 PROCAINE HCL Allergy Unknown Unknown Uncoded 11/09/24 19:18 SHELLFISH Allergy Unknown VERY Uncoded 11/09/24 19:18 VAGUE, CAN EAT BUT IF TOO MUCH GETS HIVES Review of Systems Review of Systems: CONSTITUTIONAL: Denies malaise, chills, sweats, or fever. EYES: Denies redness, or discharge. ENT: Denies rhinorrhea, congestion, swollen lips, swollen tongue CARDIOVASCULAR: Denies chest pain, palpitations, or edema. RESPIRATORY: Denies cough or dyspnea. GASTROINTESTINAL: Denies abdominal pain, nausea, vomiting SKIN: Denies rash. Reports tick bite MUSCULOSKELETAL: Denies joint pain or myalgia. NEUROLOGIC: Denies headache. All systems reviewed & are unremarkable except as noted in HPI and below PMFSH Past Medical History Medical History (Updated 11/09/24 @ 19:27 by Lili Arevalo NP) Right knee injury History of lung cancer (2009) Moderate persistent asthma Surgical History Surgical History (Updated 04/05/24 @ 06:03 by Michael Sherman MD) History of lobectomy of lung (2009) History of History of tonsillectomy Family History Family History Father Asthma Family history of allergic disorder Malignant neoplasm of prostate Family history of diabetes mellitus in first degree relative Patient's father is in good health Other Diabetes mellitus Family history of cardiovascular disease Hypertension Social History Social History (Updated 04/05/24 @ 12:49 by Florecita Cortes CMA) Smoking status: Never smoker Alcohol intake: current Substance use: never Do You Feel Safe in your Home?: No Lack of Transportation: YES Lack of Food: Never True Current Housing: I Have Housing Concerned About Future Housing: No Difficulty Paying Gas/Electric Bills: YES Difficulty Paying for Meds: No Currently Unemployed: No Education: Trade/Vocational Certificate Difficulty w/ Childcare or Family Care: No Comments At time of signature, agree with nursing past medical, surgical, social and family history. There is no relevant family history pertinent to the presenting complaint Exam Narrative: GENERAL: Well-appearing, well-nourished, and in no acute distress. HEAD: Normocephalic, atraumatic. EYES: PERRLA, conjunctivae clear, and EOMI. ENT: Mucous membranes moist. NECK: Supple. No lymphadenopathy CHEST: Clear to auscultation. No respiratory distress. HEART: Regular rate and rhythm. SKIN: Warm, dry. Live tick noted in patient's right upper arm with surrounding linear abrasions consistent with Band-Aid removal/adhesive reaction NEURO: Alert and oriented x3. PSYCH: Normal mood and affect Course Course Emergency Course: Patient is aware of diagnosis, understands and agrees to treatment plan. Anticipatory guidance given. Patient agrees to follow-up as directed and is aware of reasons to seek care at the emergency department. Patient is allergic to doxycycline and penicillin. Patient has peanut allergy which may have cross sensitivity with azithromycin. Patient is that she takes azithromycin frequently and has never had an issue with the. Portions of this record may have been created with voice recognition software Level of Care: Express Care Visit Vital Signs Vital signs: Reviewed. MDM - Skin/Abscess/Foreign Bdy MDM Narrative Medical decision making narrative: Does not appear at this time to be erythema multiforme, bullous, SJS, TEN; no evidence at this time to suggest RMSF, endocarditis or Lyme disease; patient looks well, nontoxic and is tolerating oral intake; no neurologic signs or symptoms; no headache, photophobia or neck pain; afebrile; appropriate for initial outpatient treatment; discussed the importance of follow-up, patient agrees; question, viral exanthema, contact dermatitis, allergic dermatitis, eczema, urticaria, [ xx ]. No soft palate or uvula edema, no tongue, lip edema or other mucosal involvement, no respiratory compromise, no stridor, no wheezing, no wheezing, no history of syncope, no hypotension, no nausea, vomiting, or diarrhea. Instructed patient to go to nearest ER immediately for any worsening symptoms including but not limited to: fever, spreading rash, pain, sore throat, headache, dizziness, chest pain, trouble breathing, or any symptoms concerning to the patient. Critical Care Time Critical Care Time Critical Care Time: No Discharge Plan Discharge Clinical Impression: Tick bite Patient Disposition: Home, Self-Care Condition: Stable Instructions: Antibiotic Form, Tick Bite (ED) Additional Instructions: 1) Please follow-up with your primary care doctor in the next 1-2 days. 2) If you have any worsening of symptoms or any other urgent concerns please go to the ER. 3) Please take medications as prescribed and continue taking your home medications as usual. 4) Please read and follow information included in discharge instructions. Patient Language: Hungarian Prescriptions: New azithromycin [Zithromax] 500 mg tablet 500 mg PO DAILY 7 Days Qty: 7 0RF No Action fluticasone propion-salmeterol [Advair Diskus] 500-50 mcg/dose blister with device 1 inh inhalation Q12H montelukast 10 mg tablet 10 mg PO DAILY loratadine 10 mg tablet 10 mg PO DAILY albuterol sulfate 90 mcg/actuation HFA aerosol inhaler 1 puff inhalation Q4H PRN (Reason: Shortness Of Breath Or Wheezing) Spiriva Respimat 1.25 mcg/actuation mist 2 puff inhalation DAILY Follow-up/Referrals: Michael Sherman MD [Primary Care Provider] - Time of Disposition: 19:31
[2024-11-09 19:20] VITALS: BP 119/64; PULSE 77; RESP 18; O2SAT 98
== END 2024-11-09 19:35 | disposition home or self-care (01) ==
PROVIDERS: Emergency Provider Nurse Practitioner; PCP Family Medicine Adolescent Medicine
DX: S40.861A Insect bite (nonvenomous) of right upper arm, initial encounter (principal); W57.XXXA Bitten or stung by nonvenomous insect and other nonvenomous arthropods, initial encounter; J45.909 Unspecified asthma, uncomplicated; Z85.118 Personal history of other malignant neoplasm of bronchus and lung; Z90.2 Acquired absence of lung [part of]
CPT/HCPCS: 99213; G0463

== ENCOUNTER 2025-03-27 18:24 | Emergency (ER) | payer OTHER, SELFPAY ==
--- NOTE | ~2025-03-27 | XR_ITS ---
HISTORY: injury COMPARISON: None TECHNIQUE: 3views of the left hand were performed. FINDINGS: Possible avulsion fracture along the dorsal margin of the distal phalanx of the fifth digit with over lying soft tissue swelling. The joint spaces are preserved. The carpal arcs are intact. Mild radiocarpal joint space narrowing with sclerosis of the distal radius is present. Periarticular osteopenia is identified. No additional soft tissue swelling. No radiopaque foreign body is identified. IMPRESSION: Possible avulsion fracture along the dorsal margin of the distal phalanx of the fifth dig it with overlying soft tissue swelling. Reviewed, dictated and finalized at location A. IMPRESSION: Possible avulsion fracture along the dorsal margin of the distal ph alanx of the fifth digit with overlying soft tissue swelling.
[2025-03-27 18:31] VITALS: BP 122/72; PULSE 58; RESP 16; TEMP 36.4; O2SAT 99
--- NOTE | 2025-03-27 18:34 | ED_ITS ---
HPI - Extremity Injury (Upper) General Chief Complaint: Extremity Injury, Upper Stated Complaint: finger injury Time Seen by Provider: 03/27/25 19:02 Source: patient and RN notes reviewed Mode of arrival: ambulatory Limitations: no limitations History of Present Illness HPI narrative: 64-year-old female presents with concern of for pain to the left hand, 4th and 5th digits and below the 5th digit. Reports she ?jammed? the finger reaching for a gal of milk this afternoon. She denies any intervention. She reports pain with flexion, reports swelling to the 5th digit. Denies any decreased sensation, strength. MD complaint: injury to: left, hand and finger Related Data Home Medications ?Medication ?Instructions ?Recorded ?Confirmed ?Last Taken ?Type albuterol sulfate 90 mcg/actuation 1 puff inhalation Q4H PRN 07/26/22 11/15/24 Unknown History aerosol inhaler Shortness Of Breath Or Wheezing fluticasone 500 mcg-salmeterol 50 1 inh inhalation Q12H 07/26/22 11/15/24 Unknown History mcg/dose blistr powdr for inhalation (Advair Diskus) loratadine 10 mg tablet 10 mg PO DAILY 07/26/22 11/15/24 Unknown History montelukast 10 mg tablet 10 mg PO DAILY 07/26/22 11/15/24 Unknown History tiotropium bromide 1.25 2 puff inhalation DAILY 04/05/24 11/15/24 Unknown History mcg/actuation mist for inhalation (Spiriva Respimat) Allergies Allergy/AdvReac Type Severity Reaction Status Date / Time cyclobenzaprine Allergy Severe STOPS Verified 03/27/25 18:32 BREATHING doxycycline Allergy Severe Other Verified 03/27/25 18:32 topiramate Allergy Severe Anaphylactic Verified 03/27/25 18:32 Shock amitriptyline Allergy Intermediate Unknown Verified 03/27/25 18:32 amoxicillin Allergy Intermediate Hives Verified 03/27/25 18:32 Penicillins Allergy Intermediate Hives Verified 03/27/25 18:32 carbamazepine Allergy Unknown RASH Verified 03/27/25 18:32 codeine Allergy Unknown Unknown Verified 03/27/25 18:32 divalproex sodium Allergy Unknown RASH Verified 03/27/25 18:32 hydrocodone Allergy Unknown Unknown Verified 03/27/25 18:32 hydromorphone Allergy Unknown Unknown Verified 03/27/25 18:32 lamotrigine Allergy Unknown RASH Verified 03/27/25 18:32 oxycodone Allergy Unknown Unknown Verified 03/27/25 18:32 peanut Allergy Unknown Unknown Verified 03/27/25 18:32 azithromycin AdvReac Severe Abdominal Verified 03/27/25 18:32 Pain adhesive tape AdvReac Unknown RASH Verified 03/27/25 18:32 gabapentin AdvReac Unknown Unknown Verified 03/27/25 18:32 COCONUT Allergy Unknown Unknown Uncoded 03/27/25 18:32 PROCAINE HCL Allergy Unknown Unknown Uncoded 03/27/25 18:32 SHELLFISH Allergy Unknown VERY Uncoded 03/27/25 18:32 VAGUE, CAN EAT BUT IF TOO MUCH GETS HIVES Review of Systems Review of Systems: CONSTITUTIONAL: Denies malaise, chills, sweats, or fever. SKIN: Denies rash or itching, open skin, laceration, abrasion, redness, warmth MUSCULOSKELETAL: Reports left hand pain and finger. Reports swelling to the 5th digit NEUROLOGIC: Denies numbness, weakness All systems reviewed & are unremarkable except as noted in HPI and below PMFSH Past Medical History Medical History (Updated 03/27/25 @ 19:17 by Lili Arevalo NP) Right knee injury History of lung cancer (2009) Moderate persistent asthma Surgical History Surgical History (Updated 04/05/24 @ 06:03 by Michael Sherman MD) History of lobectomy of lung (2009) History of History of tonsillectomy Family History Family History Father Asthma Family history of allergic disorder Malignant neoplasm of prostate Family history of diabetes mellitus in first degree relative Patient's father is in good health Other Diabetes mellitus Family history of cardiovascular disease Hypertension Social History Social History (Updated 04/05/24 @ 12:49 by Florecita Cortes CMA) Smoking status: Never smoker Alcohol intake: current Substance use: never Do You Feel Safe in your Home?: No Lack of Transportation: YES Lack of Food: Never True Current Housing: I Have Housing Concerned About Future Housing: No Difficulty Paying Gas/Electric Bills: YES Difficulty Paying for Meds: No Currently Unemployed: No Education: Trade/Vocational Certificate Difficulty w/ Childcare or Family Care: No Comments At time of signature, agree with nursing past medical, surgical, social and family history. There is no relevant family history pertinent to the presenting complaint Exam 2 Narrative: GENERAL: Well-appearing, well-nourished, and in no acute distress. HEAD: Normocephalic EYES: PERRLA, conjunctivae clear NECK: Supple. CHEST: Speaks in full sentences. No respiratory distress. HEART: Regular rate and rhythm. Normal and equal peripheral pulses. EXTREMITIES: Left hand and digits of hand have normal strength and sensation. 5/5 strength with digit flexion, extension. Range of motion grossly normal, flexion limited in the 4th and 5th digits likely due to swelling and pain. No clubbing, cyanosis. Mild edema and tenderness noted to the distal 5th digit. Skin intact. Normal digital cascade with flexion of fingers, median, ulnar and radial nerve intact. Normal sensation of each side of finger. Can perform 'okay' sign, 'cross over finger test of index and middle fingers' and 'thumbs up' sign. No scissoring. Normal thumb opposition. Good capillary refill and radial pulse. Distal capillary refill less than 3 seconds. Patient is right/left hand dominant SKIN: Warn, dry, intact, pink. No rash NEURO: Alert and oriented x3. PSYCH: Normal mood and affect Course Course Emergency Course: Patient is aware of diagnosis, understands and agrees to treatment plan. Anticipatory guidance given. Patient agrees to follow-up as directed and is aware of reasons to seek care at the emergency department. Portions of this record may have been created with voice recognition software Level of Care: Express Care Visit Vital Signs Vital signs: Vital Signs Temperature 97.5 F L 03/27/25 18:31 Pulse Rate 58 L 03/27/25 18:31 Respiratory Rate 16 03/27/25 18:31 Blood Pressure 122/72 03/27/25 18:31 Pulse Oximetry 99 03/27/25 18:31 Oxygen Delivery Room Air 03/27/25 18:31 Temperature 97.5 F L 03/27/25 18:31 Pulse Rate 58 L 03/27/25 18:31 Respiratory Rate 16 03/27/25 18:31 Blood Pressure 122/72 03/27/25 18:31 Pulse Oximetry 99 03/27/25 18:31 Oxygen Delivery Room Air 03/27/25 18:31 Reviewed. MDM - Extremity Injury (Upper) Imaging Data My impression: Images reviewed, interpreted by radiologist, agree, see report. Radiologist's impression: HISTORY: injury COMPARISON: None TECHNIQUE: 3views of the left hand were performed. FINDINGS: Possible avulsion fracture along the dorsal margin of the distal phalanx of the fifth digit with overlying soft tissue swelling. The joint spaces are preserved. The carpal arcs are intact. Mild radiocarpal joint space narrowing with sclerosis of the distal radius is present. Periarticular osteopenia is identified. No additional soft tissue swelling. No radiopaque foreign body is identified. IMPRESSION: Possible avulsion fracture along the dorsal margin of the distal phalanx of the fifth digit with overlying soft tissue swelling. Critical Care Time Critical Care Time Critical Care Time: No Discharge Plan Discharge Clinical Impression: Finger sprain Patient Disposition: Home Condition: Stable Instructions: Finger Sprain (ED) Additional Instructions: Please rest, ice and elevate the affected extremity. Please take Motrin 600mg every 8 hours, as needed, for pain (take with food). Follow up with Orthopedic Surgery in 1-2 days for further evaluation - please call for an appointment. Keep finger mariana-taped for immobilization. You can remove to shower. Please go to ER immediately for increased pain, tingling/numbness, swelling, redness, and fever Patient Language: Italian Prescriptions: No Action fluticasone propion-salmeterol [Advair Diskus] 500-50 mcg/dose blister with device 1 inh inhalation Q12H montelukast 10 mg tablet 10 mg PO DAILY loratadine 10 mg tablet 10 mg PO DAILY albuterol sulfate 90 mcg/actuation HFA aerosol inhaler 1 puff inhalation Q4H PRN (Reason: Shortness Of Breath Or Wheezing) Spiriva Respimat 1.25 mcg/actuation mist 2 puff inhalation DAILY Follow-up/Referrals: Franklin Ojeda MD [Physician] - Michael Sherman MD [Primary Care Provider] - Time of Disposition: 19:17
== END 2025-03-27 19:45 | disposition home or self-care (01) ==
PROVIDERS: Emergency Provider Nurse Practitioner; PCP Family Medicine Adolescent Medicine
DX: S63.617A Unspecified sprain of left little finger, initial encounter (principal); W22.8XXA Striking against or struck by other objects, initial encounter; J45.909 Unspecified asthma, uncomplicated; Z85.118 Personal history of other malignant neoplasm of bronchus and lung; Z90.2 Acquired absence of lung [part of]
CPT/HCPCS: 73120; 99213; G0463

== ENCOUNTER 2025-04-30 10:05 | Outpatient (CLI) | payer OTHER, SELFPAY ==
--- OUTSIDE RECORDS SUMMARY | 2022-10-11 13:11 | XMS_ITS | Encounter Summary ---
Author Organization [facility] Address [address] [facility] [address] [place] [address] Phone Care Team Providers Care Dairy Store Manager Name Role Phone Michael Sherman MD Primary Care Prov ider Neil Bates MD Unavailable Reason for Referral * Procedure (Routine) - Closed Specialty Diagnoses / Procedures Referred By Chelsy herbert Referred To Contact Diagnoses Asthma-COPD overlap syndrome (HCC) Procedures Pulmonary Function Test -[facility]FT [facility]- [facility]; Spirometry, Oxygen Assessment Titration Bi Ware MD Phone: tel: fax: Referral ID Status Reason Start Date Expiration Date Visits Re quested Visits Authorized [id number] Closed 08/19/2022 09/18/2023 1 1 OWS APPLICATION DEVELOPER Reason for Visit * Procedure (Routine) - Closed Specialty Diagnoses / Procedures Referred By Contfinn herbert Referred To Contact Diagnoses Asthma-COPD overlap syndrome (HCC) Procedures Pulmonary Function Test -[facility]FT [facility]- [facility]; Spirometry, Oxygen Assessment Titration Bi Ware MD Phone: tel: fax: Referral ID Status Reason Start Date Expiration Date Visits Re quested Visits Authorized [id number] Closed 08/19/2022 09/18/2023 1 1 Encounter Details Date Type Department Care Team (Latest Contact Info) Description 10/11/2022 12:11 PM WINDOWS APPLICATION DEVELOPER Hospital Encounter [facility] Medicine PFT Lab [address] [facility] [address] [place] [address] Asthma-COPD overlap syndrome (HCC) Social History Tobacco Use Types Packs/Day Years Used Date Smoking Tobacco: Never Smokeless Tobacco: Never Alcohol Use Standard Drinks/Week Comments No 0 (1 standard drink = 0.6 oz pur e alcohol) AUDIT-C Answer Date Recorded Q1: How often do you have a drink containing alc ohol? Never 10/11/2022 Average Number of Drinks Not on file 023 Frequency of Binge Drinking Not on file 09/16 Comments No Sex and Gender Information Value Date Recorded Sex Assigned at Not on file Legal Sex Female 11:00 AM WINDOWS APPLICATION DEVELOPER Gender Identity Not on file Sexual Orientation Not on file documented as of this encounter Functional Status documented as of this encounter Plan of Treatment Not on file documented as of this encounter Procedures Procedure Name Priority Date/Time Associated Diagnosis Comments PULMONARY FUNCTION TEST (PFT) Routine 10/11/2022 1:15 PM WINDOWS APPLICATION DEVELOPER Asthma-COPD overlap syndrome (HCC) documented in this encounter Results * Pulmonary Function Test - (10/11/2022 1:15 PM WINDOWS APPLICATION DEVELOPER) FVC PRE 2.83 L [facility] FVC %PRE PRED 75 % [facility] FEV1 PRE 1.82 L [facility] FEV1 %PRE PRED 62 % [facility] FEV1/FVC PRE 64.5 % [facility] Anatomical Region Laterality Modality PFT 10/11/2022 12:4 5 PM WINDOWS APPLICATION DEVELOPER Addenda Addendum by Danilo Rutledge MD on 10/14/2022 4:03 PM WINDOWS APPLICATION DEVELOPER Table formatting from the original result was not included. [facility] Division of Pulmonary & Critical Care Medicine [address] [place] [address]; [place] [address]; [place] [address]; [phone] Pulmonary Function Laboratory Pulmonary Stress Test Simple/Oxygen Assessment Patient: Yane Fagan Date: No visit date found. : 1960 Ht: 69.5 IN Wt: 146 LBS Time (min) Distance (ft)/ Resendez O2 L/M SpO2 HR Jony* BP FEV1 % Pred Rest: RA 99 71 0.5 135/82 1.73 59 % Walk/Bike: 1 RA 100 90 1 2 RA 100 95 1 3 RA 99 103 2 4 RA 99 102 2 5 RA 99 105 2/3 6 min 0 sec RA 100 107 4 Recovery: 1 RA 100 72 3 126/83 1.82 62% 3 RA 100 67 2 *Jony rate of perceived exertion (1-10 dyspnea scale) Victoriano, CHEST 2003; 123:[id number] Walk Test Summary: Six Minute Walk Distance: 1540 ft Six-minute Walk Work [distance (m) x body wt (kg)]: 61742 kg.m (normal >60,000kg.m) Oxygen required to maintain SpO2 greater than 90% during six minutes of walkin L/M Comments: O2A, ASKED PATIENT TO WALK FASTER THAN NORMAL. Interpretation: Breathing room air, SpO2 is normal at rest and during exercise sufficient to increase pulse from 71 to 107 b/min, SpO2 is stable. On this basis, SpO2 is adequate at rest breathing room air and while walking breathing room air. This level of exercise is associated with no significant change of FEV1. Danilo Rutledge M.D. By signing this report, the attending pulmonary physician certifies that he/she has personally reviewed and interpreted the graphic and numerical data associated with this pulmonary function study and has reviewed and /or edited a preliminary draft report and agrees with the written final report. Narrative 10/14/2022 2:09 PM WINDOWS APPLICATION DEVELOPER See PDF PFT performed at:->[facility] Adult PFT [facility]- [facility] Procedure:->Spirometry Procedure:->Oxygen Assessment Titration Bi Ware MD PFT ORDERABLES Edit ed Result - Final documented in this encounter Visit Diagnoses Diagnosis Asthma-COPD overlap syndrome (HCC) documented in this encounter Care Teams Dairy Store Manager Relationship Specialty Start Date End Date Michael Sherman MD PCP - General 01/28/17 Neil Bates MD [address] [place] [address] Consulting Physician Cardiology 03/17/20 documented as of this encounter
--- NOTE | ~2025-04-30 | MMUS_ITS ---
EXAMINATION: MM diagnostic cindy BI w cherrie, US breast LT limited HISTORY: Palpable abnormality in the left breast TECHNIQUE: [CC, MLO and ML images of both breasts were performed using full field digital mammography. 3-D tomosynthesis were also obtained and synthetic 2- D images were generated. CAD analysis was submitted and interpreted. High- resolution left breast ultrasound was performed.] ] COMPARISON: Mammogram from 03/29/2023 BREAST PARENCHYMAL COMPOSITION: The breasts are extremely dense which lowers the sensitivity of mammography. FINDINGS: MAMMOGRAPHIC FINDINGS: No suspicious masses, calcifications or architectural distortion. There is an implantable loop recorder in the lower inner quadrant of the left breast in the area of palpable concern. ULTRASOUND: No cystic or solid mass identified in the area of palpable concern in the left breast. There is an implantable loop recorder in the area of palpable concern in the left breast at the 8:00 position 7 cm from the nipple. IMPRESSION/RECOMMENDATION: 1. No evidence for malignancy. Annual screening mammogram is recommended. BI-RADS2: Benign Reviewed, dictated and finalized at location Q. IMPRESSION/RECOMMENDATION: 1. No evidence for malignancy. Annual screening mammogram is recommended. BI-RADS2: Benign IMPRESSION/RECOMMENDATION: 1. No evidence for malignancy. Annual screening mammogram is recommended. BI-RADS2: Benign
--- OUTSIDE RECORDS SUMMARY | 2025-04-30 11:41 | XMS_ITS | Encounter Summary ---
Author Organization [facility] Medical Group Address [address] [address] Care Team Providers Care Wildlife Biostation Research Ecologist Name Role Phone Jason Whyte MD Primary Care Provider [phone] Michael Sherman MD Primary Care Prov ider Jason Whyte MD Primary Care Provider Michael Sherman MD Primary Care Prov ider Neil Bates MD Unavailable Encounter Details Date Type Department Care Team (Late st Contact Info) Description 09/13/2016 Orders Only [facility] ProviderMarisabel MD [address] [place] [address] Social History Tobacco Use Types Packs/Day Years Used Date Smoking Tobacco: Never Alcohol Use Standard Drinks/Week Comments No 0 (1 standard drink = 0.6 oz pur e alcohol) Comments Unknown Sex and Gender Information Value Date Recorded Sex Assigned at Not on file 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
--- OUTSIDE RECORDS SUMMARY | 2025-04-30 11:41 | XMS_ITS | Encounter Summary ---
Author Organization [facility] Medical Group Address [address] [address] Care Team Providers Care Telesales Consultant Name Role Phone Jason Whyte MD Primary Care Provider [phone] Michael Sherman MD Primary Care Prov ider Jason Whyte MD Primary Care Provider Michael Sherman MD Primary Care Prov ider Neil Bates MD Unavailable Encounter Details Date Type Department Care Team (Late st Contact Info) Description 08/26/2016 Orders Only [facility] ProviderMarisabel MD [address] [place] [address] Social History Tobacco Use Types Packs/Day Years Used Date Smoking Tobacco: Never Alcohol Use Standard Drinks/Week Comments No 0 (1 standard drink = 0.6 oz pur e alcohol) Comments Unknown Sex and Gender Information Value Date Recorded Sex Assigned at Not on file 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
--- OUTSIDE RECORDS SUMMARY | 2025-04-30 11:41 | XMS_ITS | Encounter Summary ---
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
--- OUTSIDE RECORDS SUMMARY | 2025-04-30 11:41 | XMS_ITS | Clinical Summary ---
Author Organization [facility] Address [address] [place] [address] Care Team Providers Care Senior Product Marketing Manager Name Role Phone Michael Sherman MD [...] by oral route every day 0 0 6 Active multivitamin-ir on-folic acid (Centrum) 18-400 mg-mcg tablet Take by mouth Active tiotropium (Spiriva with HandiHaler) 18 mcg per inhalation capsule Place 1 puff (1 capsule total) into inhaler and inhale daily 30 capsule 11 4 Active inhalational spacing device (Aerochamber MV) spacer Inhale 1 Units daily 1 each 2 4 Active loratadine (CLARITIN) 10 mg tablet Take 1 tablet (10 mg total) by mouth daily 90 tablet 3 4 Active montelukast (SINGULAIR) 10 mg tablet Take 1 tablet (10 mg total) by mouth daily 90 tablet 3 4 05/27/20 25 Active fluticasone propion-salmete roL (Advair HFA) 230-21 mcg/actuation inhalerIndicati ons:Bronchospas m Prevention with COPD,Maintenanc e Therapy for Asthma Inhale 2 puffs 2 (two) times a day Rinse mouth with water after use. Do not swallow. 1 each 11 4 Active albuterol HFA (PROVENTIL HFA,VENTOLIN HFA,PROAIR HFA) 90 mcg/actuation inhaler Inhale 2 puffs every 6 (six) hours as needed for wheezing 1 each 5 4 07/19/20 25 Active dilTIAZem CD/XR/XT (dilTIAZem XR) 120 mg 24 hr capsule Take 1 capsule (120 mg total) by mouth daily 90 capsule 6 5 Active Additional Information Patient not taking.Reported on 04/02/2025 Active Problems Problem Noted Date Diagnosed Date Allergic rhinitis 09/01/2020 Palpitations 02/27/2020 Overview (02/27/2020): Added automatically from request for surgery [id number] PSVT (paroxysmal supraventricular tachycardia) 0 02/27/2020 Overview (02/27/2020): Added automatically from request for surgery [id number] Status post placement of implantable loop record er 02/09/2018 Overview (03/17/2020): Medtronic LINQ ILR implanted for Palpitations/PAT on 03/17/2020. Nany ([place]) Jana (Card - follows) - [facility] Menopause present 07/18/2017 Moderate persistent asthma 04/07/2017 Dizzy spells 02/02/2016 Overview (11/25/2017): Description: Normal vEEG in 2014 including normal interictal EEG, yet 2011 with reported L temporal sharps at [facility]. MRI with pituitary adenoma, stable. Impression: Continues [...] and MCKOY diary. Start venlafaxine for now. usen of macula 07/31/2015 Dim vision 07/31/2015 Vitreous [...] Encounters Date Type Department Care Team Description 04/02/2025 2:00 PM CDT Office Visit [facility] Medicine Pulmonary [facility] [address] [place] [address] [place] [address] Bi Ware MD Moderate persistent asthma without complication (Primary Dx); Asthma-COPD overlap syndrome (HCC); Allergic rhinitis, unspecified seasonality, unspecified trigger 04/02/2025 1:30 PM CDT - 04/02/2025 11:59 PM CDT Hospital Encounter [facility] Medicine Pulmonary [facility] [address] [place] [address] Asthma-COPD overlap syndrome (HCC) Discharge Disposition: Discharge to home or self care 03/04/2025 Results Follow-Up [facility] Medicine Pulmonary [address] [facility] Medicine [address]th [place] [address] [place] [address] chest without contrast 02/27/2025 12:00 PM CDT Office Visit [facility] Cardiology [address] [place] [address] Neil Bates MD Palpitations (Primary Dx); PAT (paroxysmal atrial tachycardia); PSVT (paroxysmal supraventricular tachycardia); Status post placement of implantable loop recorder; Lipid screening 02/14/2025 Telephone [facility] Pulmonary [address] [facility] [address] [place] [address] [place] [address] Martínez Wilcox RN 02/11/2025 10:16 AM CDT - 02/11/2025 11:59 PM CDT Hospital Encounter [facility] Medical Office Building [address] [address] Lung nodules; Abnormal CT scan, lung Discharge Disposition: Discharge to home or self care 01/30/2025 Telephone [facility] Cardiology [address] [place] [address] Anabel Che MA from Last 3 Months Immunizations Immunization Administration Dates Next Due Influenza, Trivalent, Preservative [...] Depression Depression Asthma Asthma Cancer of lung Cancer, lung Seizure disorder (HCC) Seizure d isorder Hx Other Medical ENCEPHALITIS Hx Other Medical seizure disorde r; Comments: [facility] 10/10/2014 - Asthma Asthma; Comments : [facility] 10/10/2014 - Hx Other Medical encephalitis; C omments: [facility] 10/10/2014 - Hx Other Medical 2010 lung cancer merlin jimmy; Comments: [facility] 10/10/2014 - Hx Other Medical scoliosis; Comm ents: [facility] 10/10/2014 - Hx Other Medical carpal tunnel; Comments: [facility] 10/10/2014 - Hx Other Medical headaches; Comm ents: [facility] 10/10/2014 - Hx Other Medical neuropathy; Com ments: [facility] 10/10/2014 - Hx Other Medical 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 Clotting disorder 1961 Brain concussion Multiple .....Last N ov 2018 Chronic bronchitis (HCC) 2010 Emphysema of lung 2016 Migraines 2009 Neuromuscular disorder 2009 Thyroid disease 1970 Peptic ulceration 1970 Family History Medical History Relation Name Comments Asthma Daughter Olegario Fagan Depression Daughter Olegario Fagan Obesity Daughter Olegario Fagan Rashes / Skin problems Daughter Olegario Fagan Cancer Father Kayden Dennis Diabetes Father Kayden Dennis Diabetes melli tus; /Diabetes Mellitus - (Added by TW Conv) Hypertension Father Kayden Dennis Liver cancer Father Kayden Dennis Cancer, liver; Cause of : Cancer, liver Lung cancer Father Kayden Dennis Family history of lung cancer - (Added by TW Conv) Obesity Father Kayden Stone Prostate cancer Father Kayden Dennis Cancer, pro state; Cause of : Cancer, prostate/Prostate Cancer - (Added by TW Conv) Vision loss Father Kayden Dennis COPD Maternal Grandfather Lonnie Duval Cancer Maternal Grandfather Deford Jeromy Emphysema Maternal Grandfather Lonnie Duval Emphyse ma, compensatory - Relation: Grandfather (Added by TW Conv) Heart disease Maternal Grandfather Lonnie Jeromy Family history of cardiac disorder - Relation: Grandfather (Added by TW Conv) Lung cancer Maternal Grandfather Deford Duval Family history of lung cancer - Relation: Grandfather (Added by TW Conv) Arthritis Maternal Grandmother Patricia Bushk ill Jeromy Hypertension Maternal Grandmother Patricia Bushk ill Duval Memory loss Maternal Grandmother Patricia Bushk ill Duval Vision loss Maternal Grandmother Patricia Bushk ill Jeromy Heart failure Maternal Great-Grandfather Family history of congestive heart failure - (Added by TW Conv) Allergy (severe) Mother Miriam Stone Arthritis Mother Miriam Stone arthritis; Asthma Mother Miriam Stone COPD Mother Miriam Stone Clotting disorder Mother Miriam Stone Other Mother Miriam Stone chronic bronchi tis; Arthritis Mother's Brother Leander Pinzon Heart disease Mother's Brother Leander Pinzon Arthritis Mother's Sister Holley Ruffin Cancer Mother's Sister Holley Pinzon Chorney Heart disease Mother's Sister Holley Ruffin Diabetes Other 1 Family history of Diabetes [...] Sister 1 Neuropathy; Cancer Sister 2 Karolyn Dennis Yogi Depression Son 1 Nikolai Fagan Obesity Son 1 Nikolai Fagan Rashes / Skin problems Son 1 Nikolai Fagan Vision loss Son 1 Nikolai Fagan Depression Son 2 Neftali Fagan Relation Name Status Comments Daughter Olegario Fagan Father Kayden Dennis Maternal Grandfather Lonnie Pinzon Maternal Grandmother Patricia Pinzon Maternal Great-Grandfather Mother Miriam Dennis Mother's Brother Leander Pinzon Mother's Sister Holley Ruffin Other 1 Other 2 Other 3 Other [...] on file 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 Gender Identity Not on file Sexual Orientation Not on file Obstetrics History Last Filed Vital Signs Vital Sign Reading Time Taken Comments Blood Pressure 120/77 04/02/2025 2:19 PM CDT Pulse 57 04/02/2025 2:19 PM CDT Temperature 36.6 C (97.8 F) 04/02/2025 2:19 PM CDT Respiratory Rate 18 04/02/2025 2:19 PM CDT Oxygen Saturation 100% 04/02/2025 2:19 PM CDT Inhaled Oxygen Concentration - - Weight 65.8 kg (145 lb) 04/02/2025 2:19 PM CDT Height 176.5 cm (5' 9.5) 04/02/2025 2:19 PM CD T Body Mass Index 21.11 04/02/2025 2:19 PM CDT Plan of Treatment Health Maintenance Due Date Last Done Comments Breast Cancer Screening-Mammogram 1960 Cervical Cancer Screening 1960 Colon Cancer Screening-Colonoscopy 1960 Depression Screening 1960 Hepatitis C Screening 1960 Hepatitis B Screening 1978 Regular Well Visit/Exam 18-64 1978 Pneumococcal vaccine <65 (1 of 2 - PCV) 1979 Zoster Vaccine (1 of 2) 2010 Influenza Vaccine (#1) 2025 , 06/17/2020, 05/15/2019, Additional history exists DTaP/Tdap/Td Vaccine (2 - Td or Tdap) 01/13/2026 01/14/2016 Medical Devices Implanted Type Area Stick Welder Device Identifier Shelf Expiration Date Model / Serial / Lot Medtronic Cardiac Rhythm Mgmt Linqsys Reveal Linq Mycarelink Insertable Loop Recorder Automatic - [id number] - [id number] Implanted:Qty : 1 on 03/17/2020 by Luca Ayon MD at [facility] Implantable Loop Recorder Medtronic Inc [id number] 06/28/2020 LINQSYS / [id number] S / D Medtronic Reveal Linq Loop Recorder-10/07 Implanted: (Quantity not on file) Heart Procedures Procedure Name Priority Date/Time Associated Diagnosis Comments PULMONARY FUNCTION TEST (PFT) Routine 04/02/2025 1:58 PM CDT Asthma-COPD overlap syndrome (HCC) POCT LIPID PANEL Routine 02/27/2025 12:0 [address] CHEST WO CONTRAST Schedule Routine, Read Routine (OP Routine) 02/11/2025 10:27 AM CDT Lung nodules Abnormal CT scan, lung from Last 3 Months Results * Pulmonary Function Test - (04/02/2025 1:58 PM CDT) FVC PRE 2.73 L [facility] FVC %PRE PRED 75 % [facility] FEV1 PRE 1.72 L [facility] FEV1 %PRE PRED 60 % [facility] FEV1/FVC PRE 62.8 % [facility] Anatomical Region Laterality Modality PFT 04/02/2025 1:44 PM CDT Narrative 04/05/2025 10:00 AM CDT PFT performed at:->[facility] Adult PFT Lab- [id number] Procedure:->Spirometry Pulmonary Function Test Interpretation SPIROMETRY: There is scooping of the expiratory limb of the flow-volume curve, consistent with expiratory airflow obstruction. The FEV1 to FVC ratio is reduced. Impression: There is a moderate obstructive defect. [...] and %HbO2 is age dependent. However, the [facility] Pulmonary Function Laboratory defines hypoxemia as a PaO2 <56 mm Hg or a %HbO2 <89%. Starting on August of 2024 the [facility] Pulmonary Function Laboratory utilizes race neutral GLI Global normative equations. Bi Ware MD PFT ORDERABLES Krystyna l Result * POCT lipid panel (02/27/2025 12:01 PM CDT) Cholesterol, POC 174 <200 MG/DL HDL, POC 61 >=40 mg/dL Triglycerides, POC 97 <=149 mg/dL LDL Cholesterol POC 93 <=129 mg/dL Chol/HDL Ratio, POC 1.5 NONE Non-HDL Cholesterol, POC 113 NONE mg/dL Cholesterol Total, POC 174 30 - 199 mg/dL Capillary blood 02/27/2025 1 2:01 PM CDT Neil Bates MD POINT OF CARE TEST ORDERABLES Fi nal Result * CT chest without contrast (02/11/2025 10:27 AM CDT) Anatomical Region Laterality Modality Body N/A Computed Tomogra phy 02/24/2025 2:10 PM CDT Narrative 02/24/2025 2:15 PM CDT EXAM DESCRIPTION: CT CHEST WO CONTRAST REASON FOR STUDY: lung nodularity 6 month follow up for lung nodules, pt has no chest complaints, hx lobectomy TECHNIQUE: CT scan of the chest performed without intravenous contrast using helical scanning technique. Reconstructed coronal and sagittal MPR images reviewed. All images stored on PACS. Automated exposure control was used as a dose optimization technique for this examination. COMPARISON: 08/16/2024 describing 3 x 12 mm linear pleural-based nodule right lower lobe FINDINGS: The sensitivity for detection of solid visceral lesions is diminished without the use of intravenous contrast. Previously described nodule in the posterolateral right lower lobe is now resolved. No new or other concerning lung nodules are present. No bronchial thickening or bronchiectasis. There is some calcified lymph nodes right hilar region. Aortic arch is normal in caliber. No aortic aneurysm. Grossly normal cardiac chambers. No enlarged mediastinal lymph nodes. Esophagus unremarkable. limited upper abdomen is unremarkable. There is a prominent levoscoliosis and exaggerated thoracic kyphosis. Evow-uk-ubwmdnot multilevel degenerative disc disease is present throughout the thoracic vertebra discs. IMPRESSION: Resolution of the previously described nodule in the right lower lobe. THIS IS AN ELECTRONICALLY VERIFIED FINAL REPORT 02/24/2025 2:15 PM - Electronically signed by Gonzalo Mike M.D. DA: LUIS Report ID: [id number] Reading Location: [facility] Procedure Note Gonzalo Mike MD - 02/24/2025 EXAM DESCRIPTION: CT CHEST WO CONTRAST REASON FOR STUDY: lung nodularity 6 month follow up for lung nodules, pt has no chest complaints, hxlobectomy TECHNIQUE: CT scan of the chest performed without intravenous contrastusing helical scanning technique. Reconstructed coronal and sagittal MPR images reviewed. All images stored on PACS. Automated exposure control was usedas a dose optimization technique for this examination. COMPARISON: 08/16/2024 describing 3 x 12 mm linear pleural-based nodule right lower lobe FINDINGS: The sensitivity for detection of solid visceral lesions is diminished without the use of intravenous contrast. Previously described nodule in the posterolateral right lower lobe is now resolved. No new or other concerning lung nodules are present. Nobronchial thickening or bronchiectasis. There is some calcified lymph nodes right hilar region. Aortic arch isnormal in caliber. No aortic aneurysm. Grossly normal cardiac chambers. No enlarged mediastinal lymph nodes. Esophagus unremarkable. limited upper abdomen is unremarkable. There is a prominent levoscoliosisand exaggerated thoracic kyphosis. Efya-fn-nfdahmdy multilevel degenerativedisc disease is present throughout the thoracic vertebra discs. IMPRESSION: Resolution of the previously described nodule in the rightlower lobe. THIS IS AN ELECTRONICALLY VERIFIED FINAL REPORT 02/24/2025 2:15 PM - Electronically signed by Gonzalo Mike M.D. DA: LUIS Report ID: [id number] Reading Location: [place] [address] Bi Ware MD IMG CT PROCEDURES Fi nal Result from Last 3 Months Insurance [facility] Care Teams Senior Product Marketing Manager Relationship Specialty Start Date End Date Michael Sherman MD PCP - General 01/28/17 Neil Bates MD [address] [facility] [place] [address] Consulting Physician Cardiology 03/17/20
--- OUTSIDE RECORDS SUMMARY | 2025-04-30 11:41 | XMS_ITS | Encounter Summary ---
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 Gender Identity Not on file Sexual Orientation Not on file documented as of this encounter Plan of Treatment Not on file documented as of this encounter Procedures Procedure Name Priority Date/Time Associated Diagnosis Comments PULMONARY FUNCTION TEST (PFT) 07/18/2017 7:09 AM RUBBER ROLLER GRINDER documented in this encounter Results * PULMONARY FUNCTION TEST (PFT) (07/18/2017 7:09 AM RUBBER ROLLER GRINDER) Anatomical Region Laterality Modality PFT us Provider Scanning PFT ORDERABLES Final Result documented in this encounter Visit Diagnoses Not on filedocumented in this encounter Care Teams Shot Peening Operator Relationship Specialty Start Date End Date Michael Sherman MD PCP - General 01/28/17 Neil Bates MD [address] [place] [address] Consulting Physician Cardiology 03/17/20 documented as of this encounter
--- OUTSIDE RECORDS SUMMARY | 2025-04-30 11:41 | XMS_ITS | Encounter Summary ---
Author Organization [facility] Medical Group Address [address] [address] Care Team Providers Care Offbearer Sewer Pipe Name Role Phone Jason Whyte MD Primary Care Provider [phone] Michael Sherman MD Primary Care Prov ider Jason Whyte MD Primary Care Provider [phone] Michael Sherman MD Primary Care Prov ider Neil Bates MD Unavailable Encounter Details Date Type Department Care Team (Late st Contact Info) Description 2016 Orders Only [facility] ProviderMarisabel MD [address] [place] [address] Social History Tobacco Use Types Packs/Day Years Used Date Smoking Tobacco: Never Alcohol Use Standard Drinks/Week Comments No 0 (1 standard drink = 0.6 oz pur e alcohol) Comments Unknown Sex and Gender Information Value Date Recorded Sex Assigned at Not on file 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
--- OUTSIDE RECORDS SUMMARY | 2025-04-30 11:42 | XMS_ITS | Clinical Summary ---
Author Organization [facility] Address [address] [place] [id number] Care Team Providers Care Agent Ticketing Gate Name Role Phone Jason Whyte MD Primary Care Provider [phone] Social History Tobacco Use Types Packs/Day Years [...] 12:12 PM CDT Height 175.3 cm (5' 9) 04/15/2016 12:12 PM CDT Body Mass Index [...] 2000 Zoster Vaccines (1 of 2) 2010 Pneumococcal Vaccine: 50+ Ye ars (2 of 2 - PCV) 07/01/2017 07/01/2016 COVID-19 Vaccine ( - 2023-2 5 season) 2025 RSV Immunization or 60+ Years (1 - 1-dose 75+ series) 2035 Meningococcal B Vaccine Aged Out No l onger eligible based on patient's age to complete this topic Meningococcal Vaccine Aged Out No darrell jones eligible based on patient's age to complete this topic RSV Immunizations Under 20 Months Aged Out No longer eligible based on patient's age to complete this topic Care Teams Agent Ticketing Gate Relationship Specialty Start Date End Date Jason Whyte MD [address] [place] [address] PCP - General 08/28/15
--- OUTSIDE RECORDS SUMMARY | 2025-04-30 11:42 | XMS_ITS | Encounter Summary ---
Author Organization [facility] Address [address] [facility] [address] [place] [address] Phone Care Team Providers Care Cargo Router Name Role Phone Michael Sherman MD Primary Care Prov ider Neil Bates MD Unavailable Encounter Details Date Type Department Care Team (Late st Contact Info) Description 03/04/2025 Results Follow-Up [facility] Medicine Pulmonary [address] [facility] Advanced Medicine 8th [place] [address] [place] [id number] Bi Ware MD [address] [facility] [address] [place] [address] CT chest without contrast Social History Tobacco Use Types Packs/Day Years [...] on file 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
== END 2025-04-30 10:06 | disposition home or self-care (01) ==
LOC: ANHFOHIMG 10:06
PROVIDERS: PCP Family Medicine Adolescent Medicine; Visit Provider Nurse Practitioner
DX: N63.20 Unspecified lump in the left breast, unspecified quadrant (principal)
CPT/HCPCS: 76642; 77062; 77066; G0279

== ENCOUNTER 2025-06-03 12:24 | Outpatient (CLI) | payer OTHER, SELFPAY ==
--- NOTE | ~2025-06-03 | DEXA_ITS ---
Bone Density Report Name: ROBBIN GALINDO Age: 64 Sex: Female Ethnicity: White Date of : 1960 Indication: postmenopausal; screening for osteoporosis; height loss; cancer; asthma or emphysema; Referring Provider: MARTIN POLLOCK Study: Bone densitometry was performed. Exam Date: June 03, 2025 Accession number: [id number] Bone Density: Region BMD T-score Z-score Classification AP Spine(L1-L4) 1.169 1.1 2.9 Normal Femoral Neck (Left) 0.678 -1.5 0.0 Osteopenia Total Hip (Left) 0.949 0.1 1.3 Normal Femoral Neck (Right) 0.674 -1.6 -0.1 Osteopenia Total Hip (Right) 0.917 -0.2 1.0 Normal Femoral Neck Mean 0.676 -1.6 -0.1 Osteopenia Total Hip Mean 0.933 -0.1 1.1 Normal World Health Organization criteria for BMD impression classify patients as: Normal (T-score at or above -1.0), Osteopenia (T-score between -1.0 and -2.5), or Osteoporosis (T-score at or below -2.5). 10-year Fracture Risk(1): Major Osteoporotic Fracture 7.7% Hip Fracture 0.9% Reported Risk Factors: [place] (), Neck BMD=0.674, BMI=19.9 (1) FRAX(R) Version 3.08. Fracture probability calculated for an untreated patient. Fracture probability may be lower if the patient has received treatment. Clinical Information Provided by Patient: Has used the following medications: Vitamin D, Calcium Has the following medical conditions: Asthma or Emphysema, Cancer Patient maximum height was 72 Menopause Age: 50 No regular weight bearing exercise Does not regularly consume dairy products Drinks caffeinated beverages Onset of menses at age 14 Number of children 3 Impression: The patient has low bone mass, based on the Right Femoral Neck T-score. Discussion: BONE DENSITY IS LOW AT ONE OR MORE SKELETAL SITES. This patient's lowest T-score is low at one or more skeletal sites. It meets the World Health Organization's (WHO) criteria for ?low bone mass? (T-score between -1.0 and -2.5). The patient's 10-year risk of fracture as calculated by FRAX is less than the threshold where pharmacological therapy is recommended by the National Osteoporosis Foundation (NOF). However, all treatment decisions require clinical judgment and consideration of individual patient factors, including patient preferences, comorbidities, previous drug use, risk factors not captured in the FRAX model (e.g., frailty, falls, vitamin D deficiency, increased bone turnover, interval significant decline in bone density) and possible under or overestimation of fracture risk by FRAX. The patient should follow a healthful lifestyle (good nutrition with adequate calcium and vitamin D, and appropriate weight-bearing exercise). Follow-Up: Consider repeating this study in 2 to 3 years to reassess this patient's status, or sooner if there is some new clinical indication. Reported by: DOT on 06/03/2025 12:50:00 PM. Reviewed, dictated and finalized at location A.
== END 2025-06-03 12:25 | disposition home or self-care (01) ==
PROVIDERS: PCP Family Medicine Adolescent Medicine; Visit Provider Family Medicine Adolescent Medicine
DX: Z78.0 Asymptomatic menopausal state (principal); M85.89 Other specified disorders of bone density and structure, multiple sites
CPT/HCPCS: 77080

== ENCOUNTER 2025-06-07 08:45 | Outpatient (RCR) | payer OTHER, SELFPAY ==
--- NOTE | 2025-04-30 09:41 | OTOPEVAL1 ---
Assessment and note entered by Nikko Greer, MARK/Chente, CHT Evaluation Information Assessment Status Evaluation Diagnosis Sprain of unspecified finger ICD-10 Condition Codes (OT) Pain in left hand M79.642 Subjective Information Patient experienced a hyperextension injury to the left ring and small finger ~5 weeks ago. She is right handed. She reports moderate amounts of pain . Difficulties with gripping on the left hand. Reported Pain Level Pain Score 3: Self Report Assessment OT Clinical Summary Patient referred to OT with dx of finger sprain. She presents with residual pain following a hyperextension injury to the left ring and small fingers ~5 weeks ago. She presents with intact ROM , however reporting pain with functional use. Instructed in ROM HEP, discussed activity restrictions/modifications, and use of heat for improved flexibility and reduced pain. Continued skilled OT to progress HEP, utilize modalities PRN , and therapeutic exercise to facilitate return to functional left hand use for ADLs. Plan of Care Interventions Therapeutic Exercise,Therapeutic Activities, Paraffin OT Services Indicated Yes Treatment Frequency and 1x/week for 5 visits Duration These treatments will address the objective and functional deficits as defined above. The patient will be advanced safely and appropriately in order for the patient to progress towards his/her prior level of function. Additional exercises will be introduced and as well as a comprehensive home exercise program upon discharge, if needed, ?to ensure carryover of functional gains achieved in the clinic. This treatment plan has been reviewed and agreement upon by the patient.
--- NOTE | 2025-04-30 09:41 | OPREHPOC ---
Outpatient Therapy Plan of Care This is a Multidisciplinary Plan of Care that may contain components documented by all disciplines (PT, OT, and ST.) OT Problem 1 OT Problem #1 Knowledge Deficit OT Goal 1 Goal / Goal Update 1. Patient to be independent with instructed materials. Target Visit 5 OT Problem 2 OT Problem #2 Pain OT Goal 1 Goal / Goal Update 1. Patient to be independent with non-medication pain managment. Target Visit 5 OT Problem 3 OT Problem #3 Impaired Strength OT Goal 1 Goal / Goal Update 1. Patient to be able to progress to yellow putty for pattern chain builder strengthening with the left hand to improve functional strength for ADLs.
--- NOTE | 2025-06-07 09:37 | OTOPDC ---
Assessment and note entered by Nikko Greer, MARK/Chente, JACKIET OT D/C Summary 06/07/25 Assessment Status Discharge Diagnosis Sprain of unspecified finger ICD-10 Condition Codes (OT) Pain in left hand M79.642 Subjective Information Patient experienced a hyperextension injury to the left ring and small finger ~11 weeks ago. She is right handed. She reports her pain as reduced from moderate/severe to mild. Frequently she reports no pain. She reports at times the fingers will be painful if she tries to carry something to heavy. She reports improvements with being able to banquet manager items, open jars, and do yard work. Hook fist: 0 cm gap with ring and small fingers, this improved from a 2 cm gap Full fist: WNL Gross finger extension: WNL Reported Pain Level Pain Score 0: Self Report Assessment OT Clinical Summary Patient referred to OT with dx of finger sprain. She has made excellent progress with therapy. At this time ROM and banquet manager strength are WNL. She is increasing activity gradually with less and less pain, reporting frequently experiencing no pain. She is independent with use of heat, finger sleeves, and ROM for pain control. She is independent with gentle banquet manager/pinch/intrinsic strengthening. No further skilled OT indicated at this time. D/C OT. Plan of Care OT Services Indicated No
== END 2025-06-10 10:24 | disposition home or self-care (01) ==
LOC: ANHOT 08:45
PROVIDERS: PCP Family Medicine Adolescent Medicine; Visit Provider Plastic Surgery
DX: M79.642 Pain in left hand (principal); S63.615D Unspecified sprain of left ring finger, subsequent encounter; S63.617D Unspecified sprain of left little finger, subsequent encounter
CPT/HCPCS: 97018; 97110; 97165